=== PATIENT | female | born 1965 ===

== ENCOUNTER 2020-04-10 08:17 | Outpatient (REF) | payer OTHER, SELFPAY ==
[2020-04-10 10:06] LABS: Glucose Urine UA >=1000 MG/DL (NEG); Leukocyte Esterase Urine NEG (NEG); Nitrite Urine NEG (NEG); Urine Blood NEG (NEG); Urine Ketones NEG (NEG); Urine Protein NEG (NEG-TRACE)
[2020-04-10 10:09] LABS: Alanine Aminotransferase 31 U/L (0-31); Albumin Level 4.2 g/dL (3.5-5.0); Alkaline Phosphatase 54 U/L (39-117); Anion Gap 12 (12-20); Aspartate Amino Transferase 25 U/L (5-31); Bilirubin Total 0.5 mg/dL (0.0-1.0); Blood Urea Nitrogen 19 mg/dL (9-16); Calcium 9.2 mg/dL (8.4-10.2); Carbon Dioxide 29 mmol/L (22-29); Chloride 104 mmol/L (96-108); Cholesterol 129 mg/dL; Estimated Glomerular Filt Rate > 60; Glucose Fasting 139 mg/dL (60-99); HDL Cholesterol 41 mg/dL; LDL Cholesterol Calculated 72 mg/dl; Potassium 3.9 mmol/l (3.3-5.1); Sodium 141 mmol/L (135-145); Total Protein 7.1 g/dL (6.5-8.0); Triglycerides 80 mg/dL
[2020-04-10 10:12] LABS: Appearance Urine CLEAR; Color Urine YELLOW
[2020-04-10 10:55] LABS: Creatinine Urine 77.56 mg/dL; Microalbumin Urine < 5.0 mg/L
[2020-04-10 11:14] LABS: RBC Urine 0 /HPF (0); Squamous Epithelial Cell Urine TRACE /LPF; WBC Urine 0-2 /HPF (0-4)
== END 2020-04-10 08:18 | disposition home or self-care (01) ==
LOC: HO.LAB 08:17
PROVIDERS: PCP Internal Medicine; Visit Provider Internal Medicine
DX: E11.9 Type 2 diabetes mellitus without complications (principal)
CPT/HCPCS: 80053; 80061; 81001; 81003; 82043

== ENCOUNTER 2020-04-28 14:40 | Outpatient (REF) | payer OTHER, SELFPAY | END 2020-04-28 14:41 | disposition home or self-care (01) | LOC: HO.HAP 14:40 | PROVIDERS: PCP Internal Medicine; Referring Provider Internal Medicine; Visit Provider Internal Medicine | DX: Z13.89 Encounter for screening for other disorder (principal) | CPT/HCPCS: 92700 ==

== ENCOUNTER → 2020-05-06 09:33 | Outpatient (BNVA) | payer OTHER, SELFPAY | PROVIDERS: PCP Internal Medicine; Referring Provider Internal Medicine; Visit Provider Dietitian, Registered | DX: Z76.89 Persons encountering health services in other specified circumstances (principal) ==

== ENCOUNTER → 2020-06-17 12:04 | Outpatient (BNVA) | payer OTHER, SELFPAY | PROVIDERS: PCP Internal Medicine; Visit Provider Dietitian, Registered | DX: Z76.89 Persons encountering health services in other specified circumstances (principal) ==

== ENCOUNTER 2020-06-29 08:41 | Outpatient (REF) | payer OTHER, SELFPAY ==
[2020-06-29 10:01] LABS: MANUAL DIFF FLAG NO
[2020-06-29 10:02] LABS: Basophils Percent Auto 0.5 % (0-2); Eosinophils Absolute Auto 0.1 X10*3/uL (0.0-0.4); Eosinophils Percent Auto 1.3 % (0-4); Hematocrit 44.7 % (37-47); Imm Gran Abs Auto 0.03 X10*3/uL (0.00-0.03); Imm Gran Pct Auto 0.3 % (0.0-0.4); Lymphocytes Percent Auto 34.9 % (20-40); Mean Corpuscular HGB Conc 31.3 g/dl (31.0-35.0); Mean Corpuscular Hemoglobin 27.4 pg (27.0-33.0); Mean Corpuscular Volume 87.5 fL (80-98); Mean Platelet Volume 12.7 fL (9.4-12.3); Monocytes Absolute Auto 0.6 X10*3/uL (0.1-1.2); Monocytes Percent Auto 6.3 % (2-11); Neutrophils Percent Auto 56.7 % (45-73); Platelet Count 152 X10*3/uL (160-400); Red Blood Count 5.11 X10*6/uL (4.20-5.50); Red Cell Distribution Width 13.4 % (11.0-16.0); White Blood Count 8.7 X10*3/uL (4.8-10.8)
[2020-06-29 10:30] LABS: Alanine Aminotransferase 25 U/L (0-31); Albumin Level 3.9 g/dL (3.5-5.0); Alkaline Phosphatase 46 U/L (39-117); Anion Gap 12 (12-20); Aspartate Amino Transferase 26 U/L (5-31); Bilirubin Total 0.4 mg/dL (0.0-1.0); Blood Urea Nitrogen 24 mg/dL (9-16); Calcium 8.9 mg/dL (8.4-10.2); Carbon Dioxide 30 mmol/L (22-29); Chloride 104 mmol/L (96-108); Cholesterol 131 mg/dL; Estimated Glomerular Filt Rate > 60; Glucose Fasting 77 mg/dL (60-99); HDL Cholesterol 44 mg/dL; Iron 61 mcg/dL (30-160); LDL Cholesterol Calculated 67 mg/dl; Percent Iron Saturation 17 % (15-50); Potassium 3.7 mmol/l (3.3-5.1); Sodium 142 mmol/L (135-145); Total Iron Binding Capacity 355 mcg/dL (228-428); Total Protein 6.8 g/dL (6.5-8.0); Triglycerides 101 mg/dL; Unsaturated Iron Binding 294 ug/dL
[2020-06-29 10:58] LABS: Vitamin B12 605 pg/mL (200-900)
[2020-07-02 19:02] LABS: Intrinsic Factor Antibodies Positive (Negative)
[2020-07-04 11:52] LABS: Vitamin D 25-OH, D2 <4 ng/mL; Vitamin D 25-OH, D3 33 ng/mL; Vitamin D 25-OH, Total 33 ng/mL (30-100)
[2020-07-04 23:48] LABS: Parietal Cell Antibody 58.9 Unit (<=20.0)
== END 2020-06-29 08:42 | disposition home or self-care (01) ==
LOC: HO.LAB 08:41
PROVIDERS: Absent Provider Nurse Practitioner Family; PCP Internal Medicine; Visit Provider Internal Medicine
DX: E78.5 Hyperlipidemia, unspecified (principal); E53.8 Deficiency of other specified B group vitamins; I10 Essential (primary) hypertension; E55.9 Vitamin D deficiency, unspecified; M25.50 Pain in unspecified joint
CPT/HCPCS: 36415; 80053; 80061; 82306; 82607; 82746; 83516; 83540; 85025; 86340

== ENCOUNTER 2020-07-13 08:53 | Outpatient (REF) | payer OTHER, SELFPAY ==
[2020-07-13 10:31] LABS: Alanine Aminotransferase 24 U/L (0-31); Albumin Level 4.2 g/dL (3.5-5.0); Alkaline Phosphatase 52 U/L (39-117); Anion Gap 13 (12-20); Aspartate Amino Transferase 20 U/L (5-31); Bilirubin Total 0.4 mg/dL (0.0-1.0); Blood Urea Nitrogen 23 mg/dL (9-16); Calcium 9.8 mg/dL (8.4-10.2); Carbon Dioxide 28 mmol/L (22-29); Chloride 102 mmol/L (96-108); Cholesterol 146 mg/dL; Estimated Glomerular Filt Rate > 60; Glucose Fasting 195 mg/dL (60-99); HDL Cholesterol 43 mg/dL; LDL Cholesterol Calculated 78 mg/dl; Potassium 4.3 mmol/l (3.3-5.1); Sodium 139 mmol/L (135-145); Total Protein 7.3 g/dL (6.5-8.0); Triglycerides 125 mg/dL
[2020-07-13 11:06] LABS: Vitamin B12 480 pg/mL (200-900)
[2020-07-16 20:27] LABS: Intrinsic Factor Antibodies Positive (Negative)
[2020-07-19 09:53] LABS: Parietal Cell Antibody 54.1 Unit (<=20.0)
== END 2020-07-13 08:54 | disposition home or self-care (01) ==
LOC: HO.LAB 08:53
PROVIDERS: Absent Provider Nurse Practitioner Family; PCP Internal Medicine; Visit Provider Internal Medicine
DX: E11.40 Type 2 diabetes mellitus with diabetic neuropathy, unspecified (principal); Z96.41 Presence of insulin pump (external) (internal); E78.00 Pure hypercholesterolemia, unspecified; I10 Essential (primary) hypertension; D51.0 Vitamin B12 deficiency anemia due to intrinsic factor deficiency; E66.9 Obesity, unspecified; E78.5 Hyperlipidemia, unspecified
CPT/HCPCS: 36415; 80053; 80061; 82607; 82746; 83516; 86340

== ENCOUNTER 2020-07-13 09:42 | Outpatient (REF) | payer OTHER, SELFPAY | END 2020-07-13 09:43 | disposition home or self-care (01) | LOC: HO.LAB 09:42 | PROVIDERS: PCP Internal Medicine; Visit Provider Internal Medicine | DX: Z20.822 Contact with and (suspected) exposure to COVID-19 (principal) | CPT/HCPCS: 36415; C9803; U0003 ==

== ENCOUNTER 2020-07-28 11:03 | Outpatient (REF) | payer OTHER, SELFPAY | END 2020-07-28 11:04 | disposition home or self-care (01) | LOC: HO.LAB 11:03 | PROVIDERS: PCP Internal Medicine; Visit Provider Internal Medicine | DX: Z20.822 Contact with and (suspected) exposure to COVID-19 (principal) | CPT/HCPCS: 36415; C9803; U0003 ==

== ENCOUNTER 2020-08-07 13:14 | Outpatient (REF) | payer OTHER, SELFPAY | END 2020-08-07 13:15 | disposition home or self-care (01) | LOC: HO.LAB 13:14 | PROVIDERS: Visit Provider Internal Medicine | DX: Z20.822 Contact with and (suspected) exposure to COVID-19 (principal) | CPT/HCPCS: 36415; C9803; U0003; U0005 ==

== ENCOUNTER 2020-08-12 17:08 | Outpatient (REF) | payer OTHER, SELFPAY | END 2020-08-12 17:09 | disposition home or self-care (01) | LOC: HO.LAB 17:08 | PROVIDERS: Visit Provider Internal Medicine | DX: Z20.822 Contact with and (suspected) exposure to COVID-19 (principal) | CPT/HCPCS: 36415; C9803; U0003; U0005 ==

== ENCOUNTER 2020-08-24 09:14 | Outpatient (REF) | payer OTHER, SELFPAY ==
[2020-08-24 09:42] LABS: MANUAL DIFF FLAG NO
[2020-08-24 09:45] LABS: Basophils Absolute Auto 0.1 X10*3/uL (0.0-0.2); Basophils Percent Auto 0.7 % (0-2); Eosinophils Absolute Auto 0.1 X10*3/uL (0.0-0.4); Eosinophils Percent Auto 1.9 % (0-4); Hematocrit 44.7 % (37-47); Hemoglobin 14.2 g/dl (12.0-16.0); Imm Gran Abs Auto 0.02 X10*3/uL (0.00-0.03); Imm Gran Pct Auto 0.3 % (0.0-0.4); Lymphocytes Absolute Auto 2.1 X10*3/uL (1.2-4.9); Lymphocytes Percent Auto 30.5 % (20-40); Mean Corpuscular HGB Conc 31.8 g/dl (31.0-35.0); Mean Corpuscular Hemoglobin 28.1 pg (27.0-33.0); Mean Corpuscular Volume 88.5 fL (80-98); Mean Platelet Volume 11.6 fL (9.4-12.3); Monocytes Absolute Auto 0.5 X10*3/uL (0.1-1.2); Monocytes Percent Auto 6.7 % (2-11); Neutrophils Absolute Auto 4.1 X10*3/uL (2.0-8.3); Neutrophils Percent Auto 59.9 % (45-73); Platelet Count 158 X10*3/uL (160-400); Red Blood Count 5.05 X10*6/uL (4.20-5.50); Red Cell Distribution Width 13.4 % (11.0-16.0); White Blood Count 6.9 X10*3/uL (4.8-10.8)
[2020-08-24 10:08] LABS: Estimated Average Glucose 143 mg/dL; Hemoglobin A1c % 6.6 %
[2020-08-24 10:22] LABS: Anion Gap 13 (12-20); Blood Urea Nitrogen 17 mg/dL (9-16); Calcium 9.2 mg/dL (8.4-10.2); Carbon Dioxide 27 mmol/L (22-29); Chloride 106 mmol/L (96-108); Cholesterol 139 mg/dL; Estimated Glomerular Filt Rate > 60; Glucose Fasting 135 mg/dL (60-99); HDL Cholesterol 45 mg/dL; LDL Cholesterol Calculated 83 mg/dl; Potassium 4.8 mmol/L (3.3-5.1); Sodium 141 mmol/L (135-145); Triglycerides 56 mg/dL
[2020-08-24 11:39] LABS: Creatinine Urine 67.06 mg/dL; Microalbumin Urine < 5.0 mg/L
== END 2020-08-24 09:15 | disposition home or self-care (01) ==
LOC: HO.LAB 09:14
PROVIDERS: PCP Internal Medicine; Visit Provider Nurse Practitioner Family
DX: E11.40 Type 2 diabetes mellitus with diabetic neuropathy, unspecified (principal); E78.00 Pure hypercholesterolemia, unspecified; Z79.4 Long term (current) use of insulin
CPT/HCPCS: 36415; 80048; 80061; 82043; 83036; 85025

== ENCOUNTER 2020-08-24 09:49 | Outpatient (REF) | payer OTHER, SELFPAY | END 2020-08-24 09:50 | disposition home or self-care (01) | LOC: HO.LAB 09:49 | PROVIDERS: Visit Provider Internal Medicine | DX: Z20.822 Contact with and (suspected) exposure to COVID-19 (principal) | CPT/HCPCS: 36415; C9803; U0003; U0005 ==

== ENCOUNTER → 2020-09-16 12:10 | Outpatient (BNVA) | payer OTHER, SELFPAY | PROVIDERS: PCP Internal Medicine; Visit Provider Dietitian, Registered ==

== ENCOUNTER 2020-09-16 13:55 | Outpatient (REF) | payer OTHER, SELFPAY | END 2020-09-16 13:56 | disposition home or self-care (01) | LOC: HO.LAB 13:55 | PROVIDERS: Visit Provider Internal Medicine | DX: Z20.822 Contact with and (suspected) exposure to COVID-19 (principal) | CPT/HCPCS: 36415; C9803; U0003; U0005 ==

== ENCOUNTER → 2020-09-22 13:37 | Outpatient (BNVA) | payer OTHER, SELFPAY | PROVIDERS: PCP Internal Medicine; Visit Provider Internal Medicine Endocrinology, Diabetes & Metabolism | DX: E11.49 Type 2 diabetes mellitus with other diabetic neurological complication (principal); Z79.4 Long term (current) use of insulin; E78.00 Pure hypercholesterolemia, unspecified; I10 Essential (primary) hypertension; D51.0 Vitamin B12 deficiency anemia due to intrinsic factor deficiency; E66.9 Obesity, unspecified | CPT/HCPCS: 82947; 99212 ==

== ENCOUNTER 2020-09-24 10:37 | Outpatient (REF) | payer OTHER, SELFPAY ==
--- NOTE | ~2020-09-24 | US_ITS ---
EXAMINATION: US ABDOMEN LIMITED CLINICAL INFORMATION: Umbilical hernia without obstruction or gangrene. COMPARISON: Ultrasound abdomen complete 09/24/2019. KUB 08/13/2019. CT abdomen and pelvis dated 09/06/2018. TECHNIQUE: Real-time imaging of the umbilical area. FINDINGS: Imaging through the umbilical area reveals no visible soft tissue mass or hernia. There is abnormal peristaltic bowel seen that distorts abdominal wall in the area of pain/bulging. Patient was imaged in supine and retrosternal reversed Trendelenburg and upright views. US/US abdomen limited IMPRESSION: No soft tissue mass or hernia seen.
== END 2020-09-24 10:38 | disposition home or self-care (01) ==
LOC: HO.US 10:37
PROVIDERS: PCP Internal Medicine; Visit Provider Internal Medicine
DX: K42.9 Umbilical hernia without obstruction or gangrene (principal)
CPT/HCPCS: 76705

== ENCOUNTER 2020-09-24 13:00 | Outpatient (REF) | payer OTHER, SELFPAY ==
--- NOTE | ~2020-09-24 | MM_ITS ---
EXAMINATION: MM DIAGNOSTIC DIGITAL BREAST TOMOSYNTHESIS, BILATERAL CLINICAL INFORMATION: Probable benign calcifications left breast posterior to o'clock and mid 9:00. Due for yearly. The lifetime risk of breast cancer based on the Tyrer-Cuzick Model is 11%. COMPARISON: Mammography: 03/27/2020, 09/20/2019, 09/18/2019 (BI-RADS 0) 09/05/2018 TECHNIQUE: Digital breast tomosynthesis is performed in both the craniocaudal and mediolateral oblique views along with computer-aided detection (CAD). Synthesized 2D images are generated from the tomosynthesis. Additional views are obtained: Left exaggerated CC, magnification left CC x2, magnification left ML x2, left magnification exaggerated CC. FINDINGS: There are scattered areas of fibroglandular density (ACR BI-RADS breast composition Category b). Parenchymal pattern is similar to prior exams. There is no developing density or interval mass or architectural abnormality. There are scattered bilateral benign-appearing calcifications. The axilla and skin contours are unremarkable. The left calcifications for follow-up posterior medial and posterior upper outer quadrant are without significant change from prior diagnostic studies. These appear relatively coarse and similar to other calcifications in the breasts, likely fibroadenomatous change. They will be reassessed again at next bilateral annual mammography, due in 12 months. Results are provided to the patient at time of visit by the technologist. MM/MM tomosynthesis diagnostic BI IMPRESSION: 1. No significant changes from prior studies. 2. Probable benign calcifications posterior medial and upper outer left breast, possibly fibroadenomatous change. ASSESSMENT: BI-RADS 3: Probably Benign RECOMMENDATION: Diagnostic mammography at time of next annual exam, due in 12 months. This patient's information was entered into a reminder system with a target due date for their next mammogram.
== END 2020-09-24 13:01 | disposition home or self-care (01) ==
LOC: HO.MAMMO 13:00
PROVIDERS: PCP Internal Medicine; Visit Provider Internal Medicine
DX: R92.1 Mammographic calcification found on diagnostic imaging of breast (principal)
CPT/HCPCS: 77062; 77066

== ENCOUNTER 2020-10-02 08:49 | Outpatient (REF) | payer OTHER, SELFPAY ==
[2020-10-02 13:32] LABS: SARS COV2 PCR INHOUSE NEGATIVE (Negative)
== END 2020-10-02 08:50 | disposition home or self-care (01) ==
LOC: HO.LAB 08:49
PROVIDERS: Visit Provider Internal Medicine
DX: Z20.822 Contact with and (suspected) exposure to COVID-19 (principal)
CPT/HCPCS: C9803; U0003

== ENCOUNTER 2020-10-13 10:38 | Outpatient (REF) | payer OTHER, SELFPAY ==
[2020-10-13 12:15] LABS: COVID-19 Test Negative (Negative); IDNOW Serial# 55D5AD1C
== END 2020-10-13 10:39 | disposition home or self-care (01) ==
LOC: HO.LAB 10:38
PROVIDERS: Visit Provider Internal Medicine
DX: Z20.822 Contact with and (suspected) exposure to COVID-19 (principal)
CPT/HCPCS: 36415; 87635; C9803

== ENCOUNTER 2020-10-21 10:31 | Outpatient (REF) | payer OTHER, SELFPAY ==
[2020-10-21 10:57] LABS: COVID-19 Test Negative (Negative)
== END 2020-10-21 10:32 | disposition home or self-care (01) ==
LOC: HO.LAB 10:31
PROVIDERS: Visit Provider Internal Medicine
DX: Z20.822 Contact with and (suspected) exposure to COVID-19 (principal)
CPT/HCPCS: 36415; 87635; C9803

== ENCOUNTER → 2020-10-29 10:28 | Outpatient (REF) | payer OTHER, SELFPAY ==
--- NOTE | 2020-10-29 10:34 | CA_ITS ---
Transthoracic Echocardiogram Patient (Last, First, Middle): Mellisa Akbar, Gender: Female Date of : 1965 Age: 54 Procedure Date: 10/29/2020 Procedure Type: Transthoracic Echocardiogram Location: OP Height: 157.48 cm Weight: 73.48 kg BSA: 1.75 m2 Heart Rate: bpm BP: 110 / 70 mmHg Ice Cream Chef: LYNN Mcdowell MD: Norma Bland MD Director Of Recreation Therapy: Donavan Crawford MD Symptoms: R60.9 - Edema, unspecified Study Quality: Fair ECG Rhythm: Sinus Conclusions: - 1. Normal LV systolic function with impaired relaxation filling pattern 2. Normal cardiac valvular Doppler 3. Normal RV systolic pressure 4. No pericardial effusion Findings Left Ventricle Normal left ventricular size, thickness, and systolic function. The visually estimated ejection fraction is between 65-70%. There is no evidence of regional wall motion abnormalities. Spectral Doppler is indicative of an impaired relaxation filling pattern. E/E prime ratio is between 8 and 15 consistent with indeterminate filling pressures. Right Ventricle Normal right ventricular cavity size and systolic function. Atria Both atria are normal in size. Interatrial shunt cannot be excluded. Aortic Valve The aortic valve structure and function is likely normal. There is no aortic valve stenosis. There is no aortic valve regurgitation. Mitral Valve Normal mitral valve structure and function. There is trace mitral valve regurgitation. There is no mitral valve stenosis. Pulmonic Valve The pulmonic valve was not well visualized. Tricuspid Valve Likely normal tricuspid valve structure and function. There is trace tricuspid valve regurgitation. The right ventricular systolic pressure is normal. There is no evidence of pulmonary hypertension. Great Vessels All visible segments of the aorta are normal in size. The pulmonary artery was not well visualized. Venous The inferior vena cava is normal in size and collapses greater than 50% with inspiration. Pericardium/Pleural There is no evidence of pericardial effusion. Prior Study Comparison No previous study in the last 5 years for comparison Measurements M-Mode Liner Measurements Normals - Women/Men AOV Cusps: 1.90 1.5-2.6 cm/m2 2D Linear Measurements IVSd: 0.75 0.6-0.9/0.6-1.0 cm LVIDd: 4.39 3.9-5.3/4.2-5.9 cm LVIDd Index: 2.51 2.4-3.2/2.2-3.1 cm/m2 LVIDs: 2.71 2.0-3.6 cm LVPWd: 0.89 0.7-1.1 cm Ao Root: 2.50 2.1-3.5 cm LA Diam: 3.20 2.7-3.8/3.0-4.0 cm LAIDs Index: 1.83 1.5-2.3 cm/m2 LV Mass: 139.70 67-162/88-224 g LV Mass Index: 79.83 43-95/49-115 g/m2 LVOT Diam: 1.80 3.0+(-)1.3 cm 2D Systolic Function EF 4C: 70.30 >55% EF 2C: 62.00 >55% EF BiP: 66.40 >55% Mitral Valve MV Pk E: 0.84 MV PK A: 1.01 MV Decel Time: 271.00 E/A: 0.80 E'Lateral: 9.90 E'Medial: 6.31 E/E' Med: 13.30 E/E' Lat: 8.50 PHT: 79.00 MVA PHT: 2.[address] [place]: 3.10 Aortic Valve AoV Pk Varun: 1.19 AoV Mn Varun: 0.94 AoV VTI: 0.28 AoV Pk Grad: 6.00 Aov Mn Grad: 4.00 GODFREY Cont.VTI: 2.13 LVOT LVOT Pk Varun: 0.95 LVOT Mn Varun: 0.69 LVOT VTI: 0.24 LVOT Pk Grad: 4.00 LVOT Mn Grad: 2.00 LVOT Diam: 1.80 LVOT Area: 2.54 Diastolic Function MV Pk E: 0.84 MV Pk A: 1.01 E/A: 0.80 E'Medial: 6.31 E/E' Med: 13.30 E' Laterial: 9.90 E/E' Lat: 8.50 Tricuspid Valve TR Pk Varun: 2.40 TR Pk Grad: 23.00 RA Press: 3.00 RVSP: 26.00 Great Vessels Aorta Ao Root-2D: 2.50 2.0-3.7 cm Ao Asc: 2.30 2.1-3.4 cm Ao Arch: 2.40 Pulmonary Valve PV Pk Varun: 1.07 Peak PV Grad: 5.00 Updated in Other Vendor System with Status of Final Donavan Crawford MD electronically signed on 10/30/2020 11:51:57 AM with status of Final
[2020-10-29 13:48] LABS: Creatinine Urine 46.37 mg/dL; Microalbumin Urine < 5.0 mg/L
[2020-10-30 09:48] LABS: Glucose Urine UA >=1000 MG/DL (NEG); Leukocyte Esterase Urine NEG (NEG); Nitrite Urine NEG (NEG); PH 5.5 (5.0-8.0); Urine Blood NEG (NEG); Urine Ketones NEG (NEG); Urine Protein NEG (NEG-TRACE)
[2020-10-30 09:50] LABS: Appearance Urine CLEAR; Color Urine YELLOW
[2020-10-30 10:01] LABS: RBC Urine 0 /HPF (0); WBC Urine 0 /HPF (0-4)
== END ==
LOC: HO.CARD 10:28
PROVIDERS: PCP Internal Medicine; Visit Provider Internal Medicine
DX: R60.9 Edema, unspecified (principal); E11.49 Type 2 diabetes mellitus with other diabetic neurological complication
CPT/HCPCS: 81001; 82043; 87086; 87088; 87186; 93306; Q9957

== ENCOUNTER 2020-11-12 13:37 | Outpatient (REF) | payer OTHER, SELFPAY ==
[2020-11-12 15:01] LABS: MANUAL DIFF FLAG NO
[2020-11-12 15:06] LABS: Basophils Absolute Auto 0.1 X10*3/uL (0.0-0.2); Basophils Percent Auto 0.6 % (0-2); Eosinophils Absolute Auto 0.1 X10*3/uL (0.0-0.4); Eosinophils Percent Auto 1.4 % (0-4); Hematocrit 48.7 % (37-47); Hemoglobin 15.2 g/dl (12.0-16.0); Imm Gran Abs Auto 0.02 X10*3/uL (0.00-0.03); Imm Gran Pct Auto 0.2 % (0.0-0.4); Lymphocytes Absolute Auto 2.5 X10*3/uL (1.2-4.9); Lymphocytes Percent Auto 28.9 % (20-40); Mean Corpuscular HGB Conc 31.2 g/dl (31.0-35.0); Mean Corpuscular Hemoglobin 27.2 pg (27.0-33.0); Mean Corpuscular Volume 87.1 fL (80-98); Mean Platelet Volume 12.2 fL (9.4-12.3); Monocytes Absolute Auto 0.5 X10*3/uL (0.1-1.2); Monocytes Percent Auto 5.6 % (2-11); Neutrophils Absolute Auto 5.4 X10*3/uL (2.0-8.3); Neutrophils Percent Auto 63.3 % (45-73); Platelet Count 185 X10*3/uL (160-400); Red Blood Count 5.59 X10*6/uL (4.20-5.50); Red Cell Distribution Width 12.7 % (11.0-16.0); White Blood Count 8.6 X10*3/uL (4.8-10.8)
[2020-11-12 15:26] LABS: Alanine Aminotransferase 31 U/L (0-31); Albumin Level 4.4 g/dL (3.5-5.0); Alkaline Phosphatase 72 U/L (39-117); Anion Gap 13 (12-20); Aspartate Amino Transferase 23 U/L (5-31); Bilirubin Total 0.3 mg/dL (0.0-1.0); Blood Urea Nitrogen 19 mg/dL (9-16); Calcium 10.3 mg/dL (8.4-10.2); Carbon Dioxide 30 mmol/L (22-29); Chloride 101 mmol/L (96-108); Estimated Glomerular Filt Rate > 60; Glucose Random 144 mg/dL (60-115); Potassium 3.8 mmol/L (3.3-5.1); Rheumatoid Factor < 15.0 IU/mL (<15.0); Sodium 140 mmol/L (135-145); Total Protein 7.7 g/dL (6.5-8.0)
[2020-11-12 15:51] LABS: Thyroid Stimulating Hormone 2.32 uIU/mL (0.32-4.0)
[2020-11-12 16:36] LABS: Erythrocyte Sedimentation Rate 7 MM/HR (0-20)
[2020-11-13 05:26] LABS: Lyme Abs Screen <0.90 index
[2020-11-13 10:16] LABS: Antibody to SS-A Antigen <1.0 NEG AI (<1.0 NEG); Antibody to SS-B Antigen <1.0 NEG AI (<1.0 NEG)
[2020-11-13 13:56] LABS: Anti Nuclear Antibody Screen NEGATIVE (NEGATIVE)
[2020-11-13 20:02] LABS: Cyclic Citrullinated Peptide <16 UNITS
[2020-11-16 14:46] LABS: Vitamin D 25-OH, D2 <4 ng/mL; Vitamin D 25-OH, D3 39 ng/mL; Vitamin D 25-OH, Total 39 ng/mL (30-100)
== END 2020-11-12 13:38 | disposition home or self-care (01) ==
LOC: HO.LAB 13:37
PROVIDERS: PCP Internal Medicine; Visit Provider Student in an Organized Health Care Education/Training Program
DX: M25.50 Pain in unspecified joint (principal)
CPT/HCPCS: 36415; 80053; 82306; 84443; 85025; 85652; 86038; 86039; 86140; 86200; 86235; 86431; 86617; 86618; 99202

== ENCOUNTER 2020-11-13 07:31 | Outpatient (REF) | payer OTHER, SELFPAY ==
--- NOTE | ~2020-11-13 | XR_ITS ---
EXAMINATION: XR BILATERAL HAND X-RAY CLINICAL INFORMATION: Pain. COMPARISON: Previous x-ray October 2017. TECHNIQUE: 3 views of each hand and wrist. FINDINGS: Bone alignment is normal. No fracture or dislocation is seen. Joint spaces are normal. Soft tissues are normal. XR/XR hand RT min 3V IMPRESSION: Unremarkable exam.
--- NOTE | ~2020-11-13 | XR_ITS ---
EXAMINATION: XR LUMBOSACRAL SPINE CLINICAL INFORMATION: Pain COMPARISON: Previous x-ray August 2017 TECHNIQUE: Three views of the lumbosacral spine. FINDINGS: There may be a transitional vertebral body segment or 6 lumbar-type vertebral bodies. For the purposes of this dictation the transitional segment is designated superiorly with the L4-L5 disc space at the top of the iliac crests. Bone alignment is normal. No fracture or dislocation is seen. There is mild spondylosis and degenerative disc disease at T12-L1 and L1-L2. There is mild degenerative spondylosis at L3-L4. There is lower lumbar spine facet arthritis. Paraspinal soft tissues are unremarkable. XR/XR lumbar spine 2-3V IMPRESSION: Mild degenerative changes similar to 2018 exam.
--- NOTE | ~2020-11-13 | XR_ITS ---
EXAMINATION: XR BILATERAL HAND X-RAY CLINICAL INFORMATION: Pain. COMPARISON: Previous x-ray October 2017. TECHNIQUE: 3 views of each hand and wrist. FINDINGS: Bone alignment is normal. No fracture or dislocation is seen. Joint spaces are normal. Soft tissues are normal. XR/XR hand LT min 3V IMPRESSION: Unremarkable exam.
[2020-11-13 08:22] LABS: MANUAL DIFF FLAG NO
[2020-11-13 08:27] LABS: Basophils Absolute Auto 0.1 X10*3/uL (0.0-0.2); Basophils Percent Auto 0.8 % (0-2); Eosinophils Absolute Auto 0.1 X10*3/uL (0.0-0.4); Eosinophils Percent Auto 1.5 % (0-4); Hematocrit 45.6 % (37-47); Hemoglobin 14.3 g/dl (12.0-16.0); Imm Gran Abs Auto 0.01 X10*3/uL (0.00-0.03); Imm Gran Pct Auto 0.1 % (0.0-0.4); Lymphocytes Percent Auto 27.4 % (20-40); Mean Corpuscular HGB Conc 31.4 g/dl (31.0-35.0); Mean Corpuscular Hemoglobin 27.2 pg (27.0-33.0); Mean Corpuscular Volume 86.9 fL (80-98); Mean Platelet Volume 12.1 fL (9.4-12.3); Monocytes Absolute Auto 0.5 X10*3/uL (0.1-1.2); Monocytes Percent Auto 6.6 % (2-11); Neutrophils Absolute Auto 4.5 X10*3/uL (2.0-8.3); Neutrophils Percent Auto 63.6 % (45-73); Platelet Count 175 X10*3/uL (160-400); Red Blood Count 5.25 X10*6/uL (4.20-5.50); Red Cell Distribution Width 12.6 % (11.0-16.0); White Blood Count 7.2 X10*3/uL (4.8-10.8)
[2020-11-13 08:50] LABS: B Type Natriuretic Peptide 23 pg/mL (<100)
[2020-11-13 08:55] LABS: Alanine Aminotransferase 28 U/L (0-31); Albumin Level 4.1 g/dL (3.5-5.0); Alkaline Phosphatase 57 U/L (39-117); Anion Gap 12 (12-20); Aspartate Amino Transferase 23 U/L (5-31); Bilirubin Total 0.4 mg/dL (0.0-1.0); Blood Urea Nitrogen 20 mg/dL (9-16); Calcium 9.5 mg/dL (8.4-10.2); Carbon Dioxide 29 mmol/L (22-29); Chloride 103 mmol/L (96-108); Cholesterol 122 mg/dL; Estimated Glomerular Filt Rate > 60; Glucose Fasting 164 mg/dL (60-99); HDL Cholesterol 32 mg/dL; LDL Cholesterol Calculated 65 mg/dl; Potassium 3.8 mmol/L (3.3-5.1); Sodium 140 mmol/L (135-145); Triglycerides 126 mg/dL
[2020-11-13 09:07] LABS: TSH reflex Free T4 1.85 uIU/mL (0.32-4.0)
[2020-11-13 09:21] LABS: Folate 14.5 ng/mL (> or = 4.0); Vitamin B12 810 pg/mL (200-900)
[2020-11-17 12:46] LABS: Vitamin D 25-OH, D2 <4 ng/mL; Vitamin D 25-OH, D3 31 ng/mL; Vitamin D 25-OH, Total 31 ng/mL (30-100)
== END 2020-11-13 07:32 | disposition home or self-care (01) ==
LOC: HO.LAB 07:31
PROVIDERS: Absent Provider Student in an Organized Health Care Education/Training Program; PCP Internal Medicine; Visit Provider Internal Medicine
DX: M25.50 Pain in unspecified joint (principal); D51.0 Vitamin B12 deficiency anemia due to intrinsic factor deficiency; D64.9 Anemia, unspecified; R60.9 Edema, unspecified; E11.49 Type 2 diabetes mellitus with other diabetic neurological complication; E78.5 Hyperlipidemia, unspecified; E55.9 Vitamin D deficiency, unspecified
CPT/HCPCS: 36415; 72100; 73130; 80053; 80061; 82306; 82607; 82746; 83880; 84443; 85025

== ENCOUNTER 2020-11-25 11:12 | Outpatient (REF) | payer OTHER, SELFPAY ==
[2020-11-25 14:13] LABS: CT PCR NOT DETECTED (Not Detect.); NG PCR NOT DETECTED (Not Detect.)
[2020-11-26 08:56] LABS: BV Int Neg Control Negative (Negative); BV Int Pos Control Positive (Positive)
== END 2020-11-25 11:13 | disposition home or self-care (01) ==
LOC: HO.LAB 11:12
PROVIDERS: PCP Internal Medicine; Visit Provider Obstetrics & Gynecology
DX: Z11.3 Encounter for screening for infections with a predominantly sexual mode of transmission (principal); B37.3 Candidiasis of vulva and vagina; N95.2 Postmenopausal atrophic vaginitis
CPT/HCPCS: 87480; 87491; 87510; 87591; 87660; 99212

== ENCOUNTER 2021-01-22 08:17 | Outpatient (REF) | payer OTHER, SELFPAY ==
[2021-01-22 09:11] LABS: MANUAL DIFF FLAG NO
[2021-01-22 09:19] LABS: Basophils Percent Auto 0.5 % (0-2); Eosinophils Absolute Auto 0.1 X10*3/uL (0.0-0.4); Eosinophils Percent Auto 1.7 % (0-4); Hematocrit 44.9 % (37-47); Hemoglobin 14.2 g/dl (12.0-16.0); Imm Gran Abs Auto 0.01 X10*3/uL (0.00-0.03); Imm Gran Pct Auto 0.2 % (0.0-0.4); Lymphocytes Absolute Auto 1.9 X10*3/uL (1.2-4.9); Lymphocytes Percent Auto 31.7 % (20-40); Mean Corpuscular HGB Conc 31.6 g/dl (31.0-35.0); Mean Corpuscular Hemoglobin 27.8 pg (27.0-33.0); Mean Platelet Volume 12.3 fL (9.4-12.3); Monocytes Absolute Auto 0.4 X10*3/uL (0.1-1.2); Monocytes Percent Auto 7.1 % (2-11); Neutrophils Absolute Auto 3.6 X10*3/uL (2.0-8.3); Neutrophils Percent Auto 58.8 % (45-73); Platelet Count 166 X10*3/uL (160-400); White Blood Count 6.1 X10*3/uL (4.8-10.8)
[2021-01-22 09:39] LABS: Alanine Aminotransferase 24 U/L (0-31); Albumin Level 3.8 g/dL (3.5-5.0); Alkaline Phosphatase 60 U/L (39-117); Anion Gap 10 (12-20); Aspartate Amino Transferase 24 U/L (5-31); B Type Natriuretic Peptide 63 pg/mL (<100); Bilirubin Total 0.3 mg/dL (0.0-1.0); Blood Urea Nitrogen 21 mg/dL (9-16); Calcium 9.3 mg/dL (8.4-10.2); Carbon Dioxide 29 mmol/L (22-29); Chloride 106 mmol/L (96-108); Cholesterol 147 mg/dL; Estimated Glomerular Filt Rate > 60; Glucose Fasting 194 mg/dL (60-99); HDL Cholesterol 32 mg/dL; LDL Cholesterol Calculated 89 mg/dl; Sodium 141 mmol/L (135-145); Total Protein 6.7 g/dL (6.5-8.0); Triglycerides 134 mg/dL
[2021-01-22 09:56] LABS: Erythrocyte Sedimentation Rate 8 MM/HR (0-20)
[2021-01-22 10:15] LABS: Folate 13.8 ng/mL (> or = 4.0); Vitamin B12 1009 pg/mL (200-900)
[2021-01-22 11:42] LABS: Creatinine Urine 100.11 mg/dL; Microalbum/Creatinine Ratio Ur 5.9 ug/mg cr
[2021-01-28 12:41] LABS: Vitamin D 25-OH, D2 <4 ng/mL; Vitamin D 25-OH, D3 35 ng/mL; Vitamin D 25-OH, Total 35 ng/mL (30-100)
== END 2021-01-22 08:18 | disposition home or self-care (01) ==
LOC: HO.LAB 08:17
PROVIDERS: PCP Internal Medicine; Visit Provider Internal Medicine
DX: E11.49 Type 2 diabetes mellitus with other diabetic neurological complication (principal); D64.9 Anemia, unspecified; D51.0 Vitamin B12 deficiency anemia due to intrinsic factor deficiency; E78.5 Hyperlipidemia, unspecified; R60.9 Edema, unspecified; I10 Essential (primary) hypertension; E55.9 Vitamin D deficiency, unspecified; R30.0 Dysuria
CPT/HCPCS: 36415; 80053; 80061; 82043; 82306; 82607; 82746; 83880; 85025; 85652

== ENCOUNTER → 2021-02-19 10:07 | Outpatient (BNVA) | payer OTHER, SELFPAY | PROVIDERS: PCP Internal Medicine; Visit Provider Nurse Practitioner Family | DX: K21.9 Gastro-esophageal reflux disease without esophagitis (principal); K59.01 Slow transit constipation; Z79.899 Other long term (current) drug therapy | CPT/HCPCS: 99202 ==

== ENCOUNTER → 2021-03-26 10:27 | Outpatient (BNVA) | payer OTHER, SELFPAY | PROVIDERS: PCP Internal Medicine; Referring Provider Internal Medicine; Visit Provider Nurse Practitioner Family | DX: Z01.818 Encounter for other preprocedural examination (principal); K21.9 Gastro-esophageal reflux disease without esophagitis; K59.01 Slow transit constipation | CPT/HCPCS: 99212 ==

== ENCOUNTER 2021-04-01 08:40 | Outpatient (REF) | payer OTHER, SELFPAY ==
--- NOTE | ~2021-04-01 | FL_ITS ---
EXAMINATION: FL BARIUM SWALLOW CLINICAL INFORMATION: Dysphagia COMPARISON: None TECHNIQUE: Barium swallow examination is performed using fluoroscopic evaluation in addition to multiple fluoroscopic spot views. The patient is imaged both upright and prone and using both thick and thin sulfate along with effervescent granules. Barium tablet was also administered. Fluoroscopy time: 0.7 minutes DAP: 7 Gycm2 Images: 59 FINDINGS: The swallowing mechanism is normal. No aspiration or penetration seen. Esophageal motility is normal. No hernia is seen. There is severe gastroesophageal reflux. Barium tablet passed freely into the stomach. FL/FL barium swallow IMPRESSION: Severe gastroesophageal reflux otherwise unremarkable exam.
== END 2021-04-01 08:41 | disposition home or self-care (01) ==
LOC: HO.XRAY 08:40
PROVIDERS: PCP Internal Medicine; Visit Provider Nurse Practitioner Family
DX: R13.10 Dysphagia, unspecified (principal)
CPT/HCPCS: 74220

== ENCOUNTER 2021-04-26 11:05 | Day surgery (SDC) | payer OTHER, SELFPAY ==
--- NOTE | 2021-04-23 09:34 | HO.ANESPROP2 ---
Documented by User: Paula French NP 04/23/21 09:36 HPI - Anesthesia Eval Consult details Narrative: 55yo F for Upper Endoscopy and Colonoscopy [facility] Active Problems Active Problems: All Active Problems (Updated 04/14/21 @ 15:45 by Mike Steele) Left serous otitis media (Acute) Right otitis media (Acute) Otalgia, right ear (Acute) Moderate recurrent major depression (Acute) Difficulty swallowing (Acute) Bruised toe (Acute) Atrophic vaginitis (Acute) Candidal vulvovaginitis (Acute) Fecal incontinence (Acute) Dyslipidemia (Acute) Breast calcification, left (Acute) Umbilical hernia (Acute) Edema (Acute) Arthritis (Acute) Ear pain (Acute) 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) Obesity (BMI 30-39.9) (Acute) Pernicious anemia (Acute) Asthma (Acute) Otitis media (Acute) Hearing loss (Acute) Insomnia (Acute) Moderate asthma (Acute) Essential hypertension (Acute) Polyarthralgia (Acute) GERD (gastroesophageal reflux disease) (Acute) Type 2 diabetes mellitus with other diabetic neurological complication (Acute) Diabetes (Acute) Otitis externa (Acute) Hearing loss (Acute) Past Medical History Medical History Arthritis Depression with anxiety Diabetes Dyslipidemia Ear pain Edema Essential hypertension Fecal incontinence GERD (gastroesophageal reflux disease) Hearing loss Hearing loss Insomnia 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 Moderate asthma Moderate recurrent major depression Obesity (BMI 30-39.9) Pernicious anemia Polyarthralgia Umbilical hernia Family History Family History Mother Breast cancer Paternal Grandmother Breast cancer Brother Colon cancer Family/Other FH: mental illness Mental health disorder Surgical History Surgical History History of carpal tunnel release History of cholecystectomy History of endometrial ablation History of foot surgery History of surgery on arm History of tubal ligation History of umbilical hernia repair Social History Social History Housing: Apartment Alcohol intake: never Patient Tobacco Use Status: Never used Tobacco e-Cigarette/Vaping Use: Never Used Second Hand Smoke Exposure: No Use of substances other than those prescribed or required for medical reasons: No Are you DNR?: No Advance Directives: No Advance Directives Information Provided: Yes service: No Current occupational status: disabled Meds Allergies Allergy/AdvReac Type Severity Reaction Status Date / Time Penicillins Allergy Mild RASH/DYSPNE Verified 04/14/21 15:25 A metformin AdvReac Intermediate stomach Verified 04/14/21 15:25 upset Home Medications Medication Instructions Recorded Confirmed Last Taken Type lorazepam 0.5 mg tablet 0.5 mg PO DAILY PRN 04/16/20 03/22/21 Unknown History zolpidem 5 mg tablet 5 mg PO BEDTIME PRN 04/16/20 03/22/21 Unknown History sertraline 100 mg tablet 100 mg PO DAILY 06/17/20 03/22/21 Unknown History lancets 28 gauge #100 ea 07/13/20 03/22/21 Unknown History cyanocobalamin (vitamin B-12) 500 500 mcg SUBLINGUAL DAILY 02/19/21 03/22/21 Unknown History mcg disintegrating tablet,sublingual pioglitazone 45 mg tablet 45 mg PO DAILY 02/19/21 03/22/21 Unknown History Exam Exam Date and Time: April 23, 2021 0934 Pertinent Lab Results Pertinent Lab Results: Laboratory Tests 01/22/21 01/22/21 08:30 08:30 WBC 6.1 Hgb 14.2 Hct 44.9 Plt Count 166 Sodium 141 Potassium 4.0 Chloride 106 Carbon Dioxide 29 BUN 21 H Creatinine 0.75 Narrative Narrative: ECHO 10/2020 Conclusions: -? 1. Normal LV systolic function with impaired relaxation ? ? ? filling pattern? 2. Normal cardiac valvular Doppler ? 3. Normal RV systolic pressure ? 4. No pericardial effusion ?? 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 Moderate asthma Moderate recurrent major depression Obesity (BMI 30-39.9) Pernicious anemia Polyarthralgia Umbilical hernia Family History Family History Mother Breast cancer Paternal Grandmother Breast cancer Brother Colon cancer Family/Other FH: mental illness Mental health disorder Family history of problems with anesthesia: No Surgical History Surgical History History of carpal tunnel release History of cholecystectomy History of endometrial ablation History of foot surgery History of surgery on arm History of tubal ligation History of umbilical hernia repair History of Problems with Anesthesia: No Social History Social History Housing: Apartment Alcohol intake: never Patient Tobacco Use Status: Never used Tobacco e-Cigarette/Vaping Use: Never Used Second Hand Smoke Exposure: No Use of substances other than those prescribed or required for medical reasons: No Are you DNR?: No Advance Directives: No Advance Directives Information Provided: Yes service: No Current occupational status: disabled Meds Allergies Allergy/AdvReac Type Severity Reaction Status Date / Time Penicillins Allergy Mild RASH/DYSPNE Verified 04/14/21 15:25 A metformin AdvReac Intermediate stomach Verified 04/14/21 15:25 upset Home Medications Medication Instructions Recorded Confirmed Last Taken Type lorazepam 0.5 mg tablet 0.5 mg PO DAILY PRN 04/16/20 03/22/21 Unknown History zolpidem 5 mg tablet 5 mg PO BEDTIME PRN 04/16/20 03/22/21 Unknown History sertraline 100 mg tablet 100 mg PO DAILY 06/17/20 03/22/21 Unknown History lancets 28 gauge #100 ea 07/13/20 03/22/21 Unknown History cyanocobalamin (vitamin B-12) 500 500 mcg SUBLINGUAL DAILY 02/19/21 03/22/21 Unknown History mcg disintegrating tablet,sublingual pioglitazone 45 mg tablet 45 mg PO DAILY 02/19/21 03/22/21 Unknown History Exam Airway Mallampati Class: II TM Dist: >3cm Neck ROM: Full Partial: Upper Heart: rrr Lungs: cta Assessment and Plan Assessment Anesthesia Assessment: Anesthesia Plan Discussed and Chart Reviewed Final Anesthetic Review Family History of Problems with Anesthesia: No History of Problems with Anesthesia: No NPO: Yes ASA Class: III Final Preanesthetic Review: No Changes in Pt Med Stat, Meds/Allgs Chart Reviewed and Consent Obtained/Reviewed Patient Risk: Intermediate Procedure Risk: Intermediate Anesthetic Plan Anesthetic Plan: MAC: Disposition: Standard PACU
[2021-04-26 12:02] VITALS: BP 126/69; PULSE 78; RESP 16; TEMP 35.9; O2SAT 98; BMI 28.5
[2021-04-26] MEDS: Lactated Ringers 1,000 ML 100 ML IVCONT (12:09)
--- NOTE | 2021-04-26 12:28 | P.HPSUR_ITS ---
Pre-Procedural Eval Section A Date of Service: 04/26/21 The patient is an INPATIENT: No The History & Physical has been completed within 30 days and I have reviewed it.: No Section B Chief Complaint: screening,reflux disease Details of Present Illness: Colon cancer, chronic constipation, GERD Relevant Family History (Specify if Yes): Yes Relevant Social History: None Present Medications: see Short Stay Collaborative assessment Medical History: Significant History (Arthritis Depression with anxiety Diabetes Dyslipidemia Ear pain Edema Essential hypertension Fecal incontinence GERD (gastroesophageal reflux disease) Hearing loss Hearing loss 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 Moderate asthma Moderate recurrent major depression Obesity (BMI 30-39.9) Pern) History of Previous Operations: Relevant previous surgery/procedure and date(s) (History of carpal tunnel release History of cholecystectomy History of endometrial ablation History of foot surgery History of surgery on arm History of tubal ligation History of umbilical hernia repair) Allergies: Allergies Allergy/AdvReac Type Severity Reaction Status Date / Time Penicillins Allergy Mild RASH/DYSPNE Verified 04/14/21 15:25 A metformin AdvReac Intermediate stomach Verified 04/14/21 15:25 upset Review of Systems Sugical H&P ROS: Negative: Constitution, Cardiovascular, Respiratory and Gastrointestinal Exam Surgical H&P Exam: Normal: Heart, Normal: Lungs, Normal: Extremities and Normal: Abdomen Plan Diagnosis/Plan: Unchanged I have reviewed the history and physical and performed a pertinent physical examination on my patient. No changes have occurred unless specified.
--- NOTE | 2021-04-26 12:29 | PM.OP ---
Brief Operative Note Date of Service: 04/26/21 Pre-op diagnosis: Colon cancer screening, constipation, GERD Post-op diagnosis: other (GERD, Gastritis, ulcerated gastric folds, colon polyps, diverticulosis) Procedure: FLEXIBLE TRANSORAL UPPER GASTROINTESTINAL ENDOSCOPY WITH BIOPSIES AND COLONOSCOPY TILL CECUM WITH BIOPSIES AND SNARE POLYPECTOMY UPPER ENDOSCOPY Consent: Indications for the procedure and potential complications of bleeding, perforation, reaction to medications and missed diagnosis were discussed with the patient with the help of a conference interpreter and informed consent was obtained. Instrument: Olympus GIF H 190 mid size upper endoscope Monitoring: Vital signs and clinical assessment, continuous EKG monitoring, Pulse oximetry, Carbon Dioxide monitoring and blood pressure monitoring were done throughout the procedure. Procedure: The patient was placed in the left lateral decubitis position and pre-procedure medications were administered and a bite block was placed. The endoscope was inserted into the mouth and advanced under direct vision to the third part of duodenum. A careful inspection was made as the upper endoscope was withdrawn including a retroflexed examination of the proximal stomach; Findings and interventions are described below. Findings: Larynx: edema of arytenoid cartilages Esophagus: GE junction at 36 cms. No esophagitis or Schmidt's. Stomach: Moderate diffuse gastric erythema with erythematous gastric folds along the greater curvature with linear ulcerations - biopsied. Antral biopsies were obtained to check for H Pylori. Grade 2 flap valve on retroflexed examination of the cardia. Duodenum: Normal bulb and descending duodenum. Intervention: Biopsies as noted above COLONOSCOPY PROCEDURE NOTE Consent: Indications for the procedure and potential complications of bleeding, perforation, reaction to medications and missed diagnosis were discussed with the patient and informed consent was obtained. Instrument: Olympus PCF H 190 L variable stiffness pediatric colonoscope Monitoring: Vital signs and clinical assessment, intermittent blood pressure monitoring, continuous EKG monitoring, Pulse oximetry and Carbon Dioxide monitoring were done throughout the procedure. Colon withdrawl time was 30 minutes. Procedure: The patient was placed in the left lateral decubitis position and pre-procedure medications were administered. After a digital rectal examination of the ano-rectum, the video colonoscope was inserted into the rectum and advanced through the colon to the cecum. The colonoscope was slowly withdrawn in a retrograde panoramic fashion and the colon mucosa was carefully examined including a retroflexed view of the rectum. Findings and interventions are described below. Procedure Difficulty: : Without difficulty Findings: Terminal Ileum: Not evaluated Cecum: A 3-4 mm sessile polyp removed with a cold bx. Ascending Colon: Normal Transverse Colon: A 5-6 mm sessile polyp removed with a cold bx. Descending Colon: Normal Sigmoid Colon: Two 7-8 mm sessile polyps removed with a cold snare. Moderate diverticulosis Rectum: Normal Ano-rectum: Normal Colon preparation: Good after copious irrigation (pt had a sandwich at 8 am yesterday) Impression and Post Procedure Diagnosis: Endoscopy Findings: LARYNX: Changes suggestive of LPRD STOMACH: Moderate diffuse gastric erythema with erythematous gastric folds along the greater curvature with linear ulcerations - biopsied. (likely due to Naprosyn) Antral biopsies were obtained to check for H Pylori. Colonoscopy Findings: Four small polyps removed Moderate diverticulosis seen in the sigmoid colon Plan: Await pathology results Patient has an appointment on 05/11/21 in the GI Clinic with Shweta Elkins FNP-BC . Repeat Colonoscopy interval based on path results - in 3-5 years if polyps are adenomatous and due to positive FH of colon cancer (brother at age 60 yrs). Above findings were reviewed with the patient and Gastritis, colon polyps and diverticulosis handouts were given in the discharge area. Pt was advised to hold Naprosyn until her FU appt in the GI clinic. Surgeon: Jatinder Thayer MD Anesthesia: MAC (Madison Aparicio CRNA) Was an Clutch Rebuilder used for this Procedure?: Yes Clutch Rebuilder: Sally Minaya Estimated blood loss (mL): 0 Pathology: other (A- GASTRIC ANTRUM R/O H.PYLORI B- GASTRIC FOLDS WITH ULCER C- CECAL POLYP D- TRANSVERSE COLON POLYP E- SIGMOID POLYPS) Condition: stable Disposition: PACU
--- NOTE | 2021-04-26 12:30 | W.PM.OPN ---
Operative Note Operative Note Date of Service: 04/26/21 Narrative: Pre-op diagnosis:?Colon cancer screening, constipation, GERD Post-op diagnosis:?other (GERD, Gastritis, ulcerated gastric folds, colon polyps, diverticulosis) Procedure:? FLEXIBLE TRANSORAL UPPER GASTROINTESTINAL ENDOSCOPY WITH BIOPSIES AND COLONOSCOPY TILL CECUM WITH BIOPSIES AND SNARE POLYPECTOMY UPPER ENDOSCOPY Consent:?Indications for the procedure and potential complications of bleeding, perforation, reaction to medications and missed diagnosis were discussed with the patient with the help of a senior peoplesoft developer and informed consent was obtained. Instrument:?Olympus GIF H 190 mid size upper endoscope Monitoring: Vital signs and clinical assessment, continuous EKG monitoring, Pulse oximetry, Carbon Dioxide monitoring and blood pressure monitoring were done throughout the procedure. Procedure:?The patient was placed in the left lateral decubitis position and pre-procedure medications were administered and a bite block was placed. The endoscope was inserted into the mouth and advanced under direct vision to the third part of duodenum. A careful inspection was made as the upper endoscope was withdrawn including a retroflexed examination of the proximal stomach; Findings and interventions are described below. Findings: Larynx:? edema of arytenoid cartilages Esophagus: GE junction at 36 cms.? No esophagitis or Schmidt's. Stomach: Moderate diffuse gastric erythema with erythematous gastric folds along the greater curvature with linear ulcerations - biopsied. ? Antral biopsies were obtained to check for H Pylori. Grade 2 flap valve on retroflexed examination of the cardia. Duodenum: Normal bulb and descending duodenum. Intervention: Biopsies as noted above COLONOSCOPY PROCEDURE NOTE Consent:?Indications for the procedure and potential complications of bleeding, perforation, reaction to medications and missed diagnosis were discussed with the patient and informed consent was obtained. Instrument:?Olympus PCF H 190 L variable stiffness pediatric colonoscope Monitoring:?Vital signs and clinical assessment, intermittent blood pressure monitoring, continuous EKG monitoring, Pulse oximetry and Carbon Dioxide monitoring were done throughout the procedure. Colon withdrawl time was 30 minutes. Procedure:?The patient was placed in the left lateral decubitis position and pre-procedure medications were administered. After a digital rectal examination of the ano-rectum, the video colonoscope was inserted into the rectum and advanced through the colon to the cecum. The colonoscope was slowly withdrawn in a retrograde panoramic fashion and the colon mucosa was carefully examined including a retroflexed view of the rectum. Findings and interventions are described below. Procedure Difficulty:?: Without difficulty Findings: Terminal Ileum: Not evaluated Cecum:? A 3-4 mm sessile polyp removed with a cold bx. Ascending Colon:??Normal Transverse Colon: A 5-6 mm sessile polyp removed with a cold bx. Descending Colon:? Normal Sigmoid Colon:? Two 7-8 mm sessile polyps removed with a cold snare. Moderate diverticulosis Rectum:??Normal Ano-rectum:??Normal Colon preparation:? Good? after copious irrigation (pt had a sandwich at 8 am yesterday) Impression and Post Procedure Diagnosis: Endoscopy Findings: LARYNX: Changes suggestive of LPRD STOMACH: Moderate diffuse gastric erythema with erythematous gastric folds along the greater curvature with linear ulcerations - biopsied. ? (likely due to Naprosyn) Antral biopsies were obtained to check for H Pylori. Colonoscopy Findings: Four small polyps removed Moderate diverticulosis seen in the sigmoid colon Plan: Await pathology results Patient has an appointment on 05/11/21 in the GI Clinic with Shweta lEkins FNP-BC . Repeat Colonoscopy interval based on path results - in 3-5 years if polyps are adenomatous and due to positive FH of colon cancer (brother at age 60 yrs). Above findings were reviewed with the patient and Gastritis, colon polyps and diverticulosis handouts were given in the discharge area. Pt was advised to hold Naprosyn until her FU appt in the GI clinic. Surgeon:?Jatinder Thayer MD Anesthesia:?MAC (Madison Aparicio CRNA) Was an Housekeeper And Laundry Assistant used for this Procedure?:?Yes Housekeeper And Laundry Assistant:?Sally Minaya Estimated blood loss (mL):?0 Pathology:?other (A- GASTRIC ANTRUM R/O H.PYLORI? B- GASTRIC FOLDS WITH ULCER? C- CECAL POLYP? D- TRANSVERSE COLON POLYP? E- SIGMOID POLYPS) Condition:?stable Disposition:?PACU
[2021-04-26 14:14] VITALS: BP 133/81; PULSE 80; RESP 16; TEMP 36.8; O2SAT 99
[2021-04-26 14:29] VITALS: BP 113/66; PULSE 77; RESP 18; O2SAT 100
[2021-04-26 14:44] VITALS: BP 124/66; PULSE 78; RESP 18; TEMP 36.6; O2SAT 99
[2021-04-27 05:03] LABS: Glucose, Whole Blood 154 mg/dL (60-115)
== END 2021-04-26 15:22 ==
LOC: HO.SSS 11:05
PROVIDERS: PCP Internal Medicine; Visit Provider Internal Medicine Gastroenterology
PROC: (CPT 45385; principal; 2021-04-26 13:10)
DX: Z12.11 Encounter for screening for malignant neoplasm of colon (principal); D12.0 Benign neoplasm of cecum; K21.9 Gastro-esophageal reflux disease without esophagitis; D12.3 Benign neoplasm of transverse colon; D12.5 Benign neoplasm of sigmoid colon; K57.30 Diverticulosis of large intestine without perforation or abscess without bleeding; K59.00 Constipation, unspecified; K29.50 Unspecified chronic gastritis without bleeding; K25.9 Gastric ulcer, unspecified as acute or chronic, without hemorrhage or perforation; I10 Essential (primary) hypertension; H91.90 Unspecified hearing loss, unspecified ear; D51.0 Vitamin B12 deficiency anemia due to intrinsic factor deficiency; J45.909 Unspecified asthma, uncomplicated; E11.9 Type 2 diabetes mellitus without complications; Z79.4 Long term (current) use of insulin; Z79.899 Other long term (current) drug therapy; Z88.0 Allergy status to penicillin; Z88.8 Allergy status to other drugs, medicaments and biological substances; Z90.49 Acquired absence of other specified parts of digestive tract
CPT/HCPCS: 45385; 45380; 43239; 82947; 88305; 88342; J3010

== ENCOUNTER → 2021-05-06 12:50 | Outpatient (BNVA) | payer OTHER, SELFPAY | PROVIDERS: PCP Internal Medicine; Visit Provider Dietitian, Registered | DX: E11.49 Type 2 diabetes mellitus with other diabetic neurological complication (principal) | CPT/HCPCS: 97803 ==

== ENCOUNTER → 2021-05-11 10:43 | Outpatient (BNVA) | payer OTHER, SELFPAY | PROVIDERS: PCP Internal Medicine; Referring Provider Internal Medicine; Visit Provider Nurse Practitioner Family | DX: K21.9 Gastro-esophageal reflux disease without esophagitis (principal); K58.2 Mixed irritable bowel syndrome; K59.04 Chronic idiopathic constipation; D36.9 Benign neoplasm, unspecified site | CPT/HCPCS: 99212 ==

== ENCOUNTER → 2021-05-19 13:44 | Outpatient (BNVA) | payer OTHER, SELFPAY | PROVIDERS: PCP Internal Medicine; Visit Provider Nurse Practitioner Gerontology | DX: E78.00 Pure hypercholesterolemia, unspecified (principal); E11.65 Type 2 diabetes mellitus with hyperglycemia; E53.8 Deficiency of other specified B group vitamins; I10 Essential (primary) hypertension; Z79.4 Long term (current) use of insulin | CPT/HCPCS: 82947 ==

== ENCOUNTER 2021-05-20 13:23 | Outpatient (REF) | payer OTHER, SELFPAY ==
[2021-05-20 15:18] LABS: Creatinine Urine 33.89 mg/dL; Microalbumin Urine < 5.0 mg/L
[2021-05-20 15:38] LABS: Folate 17.5 ng/mL (> or = 4.0); Vitamin B12 447 pg/mL (200-900)
== END 2021-05-20 13:24 | disposition home or self-care (01) ==
LOC: HO.LAB 13:23
PROVIDERS: PCP Internal Medicine; Visit Provider Nurse Practitioner Gerontology
DX: D51.0 Vitamin B12 deficiency anemia due to intrinsic factor deficiency (principal); E53.8 Deficiency of other specified B group vitamins; E11.49 Type 2 diabetes mellitus with other diabetic neurological complication; E78.5 Hyperlipidemia, unspecified; I10 Essential (primary) hypertension
CPT/HCPCS: 36415; 82043; 82607; 82746

== ENCOUNTER 2021-07-05 08:37 | Emergency (ER) | payer OTHER, SELFPAY ==
[2021-07-05 09:01] VITALS: BP 124/72; PULSE 81; RESP 16; TEMP 36.6; O2SAT 98; BMI 28.5
[2021-07-05 09:30] LABS: COVID-19 Test Positive (Negative)
--- NOTE | 2021-07-05 11:07 | ED_ITS ---
HPI - URI/Sore Throat General Chief Complaint: Upper Respiratory Symptoms Stated Complaint: asthma,congestion Time Seen by Provider: 07/05/21 11:03 Source: patient and old records reviewed Mode of arrival: ambulatory Limitations: no limitations History of Present Illness HPI Narrative: danielito mejia 2 MD elicited complaint: cough and rhinorrhea Pertinent past history: asthma Onset (ago): day(s) (last several ) Consistency: intermittent Severity: mild Description of mucous: clear Able to tolerate fluids by mouth: Yes Exacerbating factors: nothing Relieving factors: nothing Associated symptoms: myalgias, rhinorrhea and cough Treatments prior to arrival: none Related Data Home Medications Medication Instructions Recorded Confirmed lorazepam 0.5 mg tablet 0.5 mg PO DAILY PRN 04/16/20 05/19/21 zolpidem 5 mg tablet 5 mg PO BEDTIME PRN 04/16/20 05/19/21 sertraline 100 mg tablet 100 mg PO DAILY 06/17/20 05/19/21 lancets 28 gauge #100 ea 07/13/20 05/19/21 cyanocobalamin (vitamin B-12) 500 500 mcg SUBLINGUAL DAILY 02/19/21 05/19/21 mcg disintegrating tablet,sublingual pioglitazone 45 mg tablet 45 mg PO DAILY 02/19/21 05/19/21 Previous Rx's Medication Instructions Recorded cetirizine 10 mg capsule (Zyrtec) 10 mg PO DAILY PRN #30 cap 06/24/20 canagliflozin 100 mg tablet 100 mg PO DAILY 30 Days #30 tab 07/13/20 hydrocortisone-acetic acid 1 %-2 % 4 drp OTIC (EARS) TID 10 Days #10 07/17/20 ear drops ml atorvastatin 20 mg tablet 20 mg PO DAILY 90 Days #90 tab 07/20/20 polyethylene glycol 3350 17 17 g PO DAILY 30 Days #510 g 09/29/20 gram/dose oral powder (Miralax) flash glucose sensor (FreeStyle #2 ea 10/21/20 Sandra 14 Day Sensor) blood sugar diagnostic (FreeStyle 1 strip MISCELLANEOUS TID #100 11/10/20 Lite Strips) strip clotrimazole-betamethasone 1 1 appl TOPICAL BID 5 Days #45 g 11/25/20 %-0.05 % topical cream terconazole 0.8 % vaginal cream 1 appful VAGINAL BEDTIME 3 Days 11/25/20 #20 g hydrochlorothiazide 12.5 mg tablet 12.5 mg PO QAM #90 tab 12/12/20 metoclopramide HCl 5 mg tablet 5 mg PO DAILY 90 Days #90 tab 12/12/20 FreeStyle Precision Margarito Strips #25 ea NS 01/18/21 (blood sugar diagnostic) cholecalciferol (vitamin D3) 25 25 mcg PO DAILY 90 Days #90 tab 03/14/21 mcg (1,000 unit) tablet (Vitamin D3) Lantus Solostar U-100 Insulin 100 32 unit (0.32 mL) SUBCUT DAILY 30 03/22/21 unit/mL (3 mL) subcutaneous pen Days #9.6 ml NS (insulin glargine) pantoprazole 40 mg tablet,delayed 40 mg PO DAILY #30 tab 03/26/21 release naproxen 500 mg tablet 500 mg PO BID PRN #60 tab 04/10/21 blood sugar diagnostic (FreeStyle #150 ea 04/14/21 Lite Strips) blood-glucose meter (FreeStyle #1 ea 04/14/21 Lite Meter) lancets 28 gauge (FreeStyle #200 ea 04/14/21 Lancets) insulin lispro 100 unit/mL 3 - 6 unit (0.03 - 0.06 mL) SUBCUT 04/15/21 subcutaneous pen (Humalog KwikPen TID #15 ml (U-100) Insulin) pen needle, diabetic 32 gauge x #150 ea 04/15/21 5/32 (BD Sondra 2nd Gen Pen Needle) ProAir HFA 90 mcg/actuation 2 puff INHALATION Q4-6H PRN 30 04/22/21 aerosol inhaler (albuterol sulfate) Days g NS Shower Chair #1 ea 05/11/21 toilet seat elevator #1 ea 05/11/21 wheat dextrin 3 gram/3.5 gram oral 1 packet PO DAILY #28 ea 05/11/21 powder packet (Benefiber Clear Sugar Free(dextrin)) terbinafine HCl 1 % topical cream 1 appl TOPICAL BID #15 g 05/19/21 (Athlete's Foot (terbinafine)) linaclotide 290 mcg capsule 290 mcg PO QAM #30 cap 05/25/21 (Linzess) montelukast 10 mg tablet 10 mg PO DAILY #90 tab 06/01/21 flash glucose scanning reader #1 ea 06/10/21 (FreeStyle Sandra 14 Day [place]) albuterol sulfate 2.5 mg (3 mL) INHALATION Q4-6H PRN 07/05/21 #75 ml prednisone 20 mg tablet 40 mg PO DAILY 5 Days #10 tab 07/05/21 Allergies Allergy/AdvReac Type Severity Reaction Status Date / Time Penicillins Allergy Mild RASH/DYSPNE Verified 05/19/21 14:30 A metformin AdvReac Intermediate stomach Verified 05/19/21 14:30 upset Review of Systems Review of Systems: Constitutional : no Fever, positive Chills, positive fatigue, positive Malaise ENT/Mouth : no sore throat, positive runny nose Eyes: No Discharge Cardiovascular : No Chest Pain, No SOB Respiratory : pos Cough, No Sputum Gastrointestinal : No Nausea, No Vomiting, No Diarrhea Genitourinary : No Dysuria, No Urinary Frequency Musculoskeletal : positive Myalgia Skin : No rash Neuro : No Headache PMFSH Past Medical History Attestation statement: The following information was validated with the patient. Medical History Arthritis B12 deficiency Depression with anxiety Diabetes DM2 (diabetes mellitus, type 2) Dyslipidemia Ear pain Edema Essential hypertension Fecal incontinence GERD (gastroesophageal reflux disease) Hearing loss Hearing loss Insomnia MCFP (current) use of insulin Moderate asthma Moderate recurrent major depression Overweight Pernicious anemia Polyarthralgia Tubular adenoma Type 2 diabetes mellitus with diabetic polyneuropathy Umbilical hernia Surgical History History of carpal tunnel release History of cholecystectomy History of endometrial ablation History of foot surgery History of surgery on arm History of tubal ligation History of umbilical hernia repair Family History Family History Mother Breast cancer Paternal Grandmother Breast cancer Brother Colon cancer Family/Other FH: mental illness Mental health disorder Social History Social History Household Members: Children Housing: Apartment Alcohol intake: never Patient Tobacco Use Status: Never used Tobacco e-Cigarette/Vaping Use: Never Used Second Hand Smoke Exposure: No Advance Directives: No Advance Directives Information Provided: No service: No Current occupational status: disabled Physical Exam Vital Signs: Vital Signs: Last Vital Signs Temp 98 F 07/05/21 09:01 Pulse 81 07/05/21 09:01 Resp 16 07/05/21 09:01 BP 124/72 07/05/21 09:01 Pulse Ox 98 07/05/21 09:01 BMI result Body Mass Index 28.5 Appearance: Alert. Oriented X3. No acute distress. Eyes: Pupils equal, round and reactive to light. ENT: Pharynx normal. Neck: Normal inspection. Neck supple. CVS: Normal heart rate and rhythm. Pulses normal. Respiratory: No respiratory distress. Breath sounds normal. Abdomen: Soft and nontender. Skin: Skin warm and dry. Normal skin color. Extremities: No lower extremity edema. Neuro: Oriented X 3. No motor deficit. No sensory deficit. MDM - URI/Sore Throat MDM Narrative Medical decision making narrative: 55 yo female with DM, asthma vaccinated x2 here with several days of cough - feels controlled at home, no hypoxia overall not toxic, clear lungs - + COVID in ED, 98% on RA - stable for DC will fill out Mab form - discussed reasons to return, PRN prednisone if her asthma flairs Lab Data Labs: Lab Results 07/05/21 Range/Units 09:05 COVID-19 ([facility]) Positive A (Negative) COVID-19 Clin Com See Note Discharge Plan Discharge Clinical Impression: COVID-19 Patient Disposition: Home, Self-Care Instructions: COVID-19 (Coronavirus Disease 2019) (ED) Additional Instructions: return to ED for any worsening symptoms or concerns MONITOR BREATHING Prescriptions: New prednisone 20 mg tablet 40 mg PO DAILY 5 Days Qty: 10 RF: 0 albuterol sulfate 2.5 mg /3 mL (0.083 %) solution for nebulization 2.5 mg inhalation Q4-6H PRN (Reason: bronchospasm) Qty: 75 RF: 0 No Action atorvastatin 20 mg tablet 20 mg PO DAILY 90 Days Qty: 90 RF: 1 polyethylene glycol 3350 [Miralax] 17 gram/dose powder 17 g PO DAILY 30 Days Qty: 510 RF: 3 (DME) FreeStyle Sandra 14 Day Sensor Kit See Rx Instructions .MEDSUPPLY Qty: 2 RF: 11 blood sugar diagnostic [FreeStyle Lite Strips] Strip 1 strip miscellaneous TID Qty: 100 RF: 9 hydrochlorothiazide 12.5 mg tablet 12.5 mg PO QAM Qty: 90 RF: 2 metoclopramide HCl 5 mg tablet 5 mg PO DAILY 90 Days Qty: 90 RF: 3 (DME) FreeStyle Precision Margarito Strips Strip See Rx Instructions .MEDSUPPLY Qty: 25 RF: 6 cholecalciferol (vitamin D3) [Vitamin D3] 25 mcg (1,000 unit) tablet 25 mcg PO DAILY 90 Days Qty: 90 RF: 3 naproxen 500 mg tablet 500 mg PO BID PRN (Reason: for pain) Qty: 60 RF: 3 (DME) FreeStyle Lite Strips Strip See Rx Instructions .ROUTE .MEDSUPPLY Qty: 150 RF: 11 (DME) blood-glucose meter [FreeStyle Lite Meter] Kit See Rx Instructions .ROUTE .MEDSUPPLY Qty: 1 RF: 0 (DME) lancets [FreeStyle Lancets] 28 gauge misc See Rx Instructions .ROUTE .MEDSUPPLY Qty: 200 RF: 11 insulin lispro [Humalog KwikPen Insulin] 100 unit/mL insulin pen 3 - 6 unit subcut TID Qty: 15 RF: 3 (DME) pen needle, diabetic [BD Sondra 2nd Gen Pen Needle] 32 gauge x 5/32 needle See Rx Instructions .MEDSUPPLY Qty: 150 RF: 11 albuterol sulfate [ProAir HFA] 90 mcg/actuation HFA aerosol inhaler 2 puff inhalation Q4-6H PRN (Reason: shortness of breath or wheezing) 30 Days RF: 0 (DME) Shower Chair Misc See Rx Instructions .Route Qty: 1 RF: 0 (DME) toilet seat elevator See Rx Instructions .Route .MEDSUPPLY Qty: 1 RF: 0 Linzess 290 mcg capsule 290 mcg PO QAM Qty: 30 RF: 4 montelukast 10 mg tablet 10 mg PO DAILY Qty: 90 RF: 3 (DME) FreeStyle Sandra 14 Day [place] Misc See Rx Instructions .ROUTE .MEDSUPPLY Qty: 1 RF: 0 flu vacc [id number] 6mos up(PF) 60 mcg (15 mcg x 4)/0.5 mL syringe 0.5 ml IM ONCE Qty: 0.5 RF: 0 zolpidem 5 mg tablet 5 mg PO BEDTIME PRNRF: 0 lorazepam 0.5 mg tablet 0.5 mg PO DAILY PRNRF: 0 hydrocortisone-acetic acid 1-2 % drops 4 drp otic (ears) TID 10 Days Qty: 10 RF: 0 Zyrtec 10 mg capsule 10 mg PO DAILY PRN (Reason: allergy symptoms) Qty: 30 RF: 0 Lantus Solostar U-100 Insulin 100 unit/mL (3 mL) insulin pen 32 unit subcut DAILY 30 Days Qty: 9.6 RF: 6 sertraline 100 mg tablet 100 mg PO DAILY RF: 0 terbinafine HCl [Athlete's Foot (terbinafine)] 1 % cream 1 appl topical BID Qty: 15 RF: 3 (DME) lancets 28 gauge misc See Rx Instructions lancet topical TID Qty: 100 RF: 0 canagliflozin 100 mg tablet 100 mg PO DAILY 30 Days Qty: 30 RF: 6 terconazole 0.8 % cream 1 appful vaginal BEDTIME 3 Days Qty: 20 RF: 0 clotrimazole-betamethasone 1-0.05 % cream 1 appl topical BID 5 Days Qty: 45 RF: 0 pioglitazone 45 mg tablet 45 mg PO DAILY RF: 0 cyanocobalamin (vitamin B-12) 500 mcg tablet,disintegrating 500 mcg sublingual DAILY RF: 0 pantoprazole 40 mg tablet,delayed release (DR/EC) 40 mg PO DAILY Qty: 30 RF: 2 Benefiber Clear SF (dextrin) 3 gram/3.5 gram powder in packet 1 packet PO DAILY Qty: 28 RF: 5 Print Language: Tuvaluan
--- NOTE | 2021-07-05 12:58 | PC.NURSE ---
PT EVALUATED BY DR STUART. PT AWARE AND AGREEABLE TO PLAN. PT AWAKE, ALERT AND ORIENTED X 3. SKIN WARM AND DRY. RESP UNLABORED. SPEAKING IN FULL CLEAR SENTENCES. PLAN IS FOR DC HOME. INFORMATION GIVEN REGARDING MONOCLONAL ANTIBIODIES.
== END 2021-07-05 13:01 | disposition home or self-care (01) ==
PROVIDERS: Emergency Provider Emergency Medicine; PCP Internal Medicine
DX: U07.1 COVID-19 (principal); E11.9 Type 2 diabetes mellitus without complications; E78.5 Hyperlipidemia, unspecified; I10 Essential (primary) hypertension; J45.909 Unspecified asthma, uncomplicated; Z79.899 Other long term (current) drug therapy; Z79.02 Long term (current) use of antithrombotics/antiplatelets; Z79.4 Long term (current) use of insulin
CPT/HCPCS: 36415; 87635; 99282; 99283

== ENCOUNTER 2021-07-22 08:15 | Outpatient (REF) | payer OTHER, SELFPAY ==
[2021-07-22 09:40] LABS: Alanine Aminotransferase 22 U/L (0-31); Albumin Level 3.8 g/dL (3.5-5.0); Alkaline Phosphatase 52 U/L (39-117); Anion Gap 12 (12-20); Aspartate Amino Transferase 19 U/L (5-31); Bilirubin Total 0.7 mg/dL (0.0-1.0); Blood Urea Nitrogen 18 mg/dL (9-16); Calcium 9.5 mg/dL (8.4-10.2); Carbon Dioxide 27 mmol/L (22-29); Chloride 106 mmol/L (96-108); Cholesterol 123 mg/dL; Estimated Glomerular Filt Rate > 60; Glucose Fasting 153 mg/dL (60-99); HDL Cholesterol 38 mg/dL; LDL Cholesterol Calculated 68 mg/dl; Potassium 3.9 mmol/L (3.3-5.1); Sodium 141 mmol/L (135-145); Total Protein 6.8 g/dL (6.5-8.0); Triglycerides 87 mg/dL
[2021-07-22 10:10] LABS: Vitamin B12 462 pg/mL (200-900)
== END 2021-07-22 08:16 | disposition home or self-care (01) ==
LOC: HO.LAB 08:15
PROVIDERS: Nurse Practitioner Gerontology; PCP Internal Medicine; Visit Provider Internal Medicine
DX: I10 Essential (primary) hypertension (principal); E78.5 Hyperlipidemia, unspecified; E53.8 Deficiency of other specified B group vitamins; E11.42 Type 2 diabetes mellitus with diabetic polyneuropathy
CPT/HCPCS: 36415; 80053; 80061; 82607; 99211

== ENCOUNTER 2021-07-27 10:54 | Outpatient (REF) | payer OTHER, SELFPAY ==
--- NOTE | 2021-07-27 10:59 | ECG_ITS ---
Test Reason : palpitations Blood Pressure : / mmHG Vent. Rate : 071 BPM Atrial Rate : 071 BPM P-R Int : 150 ms QRS Dur : 084 ms QT Int : 400 ms P-R-T Axes : 063 066 055 degrees QTc Int : 434 ms Normal sinus rhythm Normal ECG When compared to the previous EKG of No significant changes seen Referred By: Norma Bland Electronically Signed By:JOANNE GARCIA MD
== END 2021-07-27 10:55 | disposition home or self-care (01) ==
LOC: HO.LAB 10:54
PROVIDERS: PCP Internal Medicine; Visit Provider Internal Medicine
DX: R00.2 Palpitations (principal)
CPT/HCPCS: 93005

== ENCOUNTER 2021-08-12 15:45 | Outpatient (REF) | payer OTHER, SELFPAY ==
[2021-08-12 16:58] LABS: Influenza A PCR NEGATIVE (Negative); Influenza B PCR NEGATIVE (Negative); Resp Syncy Virus RNA Qual PCR NEGATIVE (Negative); SARS COV2 PCR INHOUSE NEGATIVE (Negative)
== END 2021-08-12 15:46 | disposition home or self-care (01) ==
LOC: HO.LAB 15:45
PROVIDERS: Visit Provider Nurse Practitioner Family
DX: Z20.822 Contact with and (suspected) exposure to COVID-19 (principal); R53.83 Other fatigue
CPT/HCPCS: 0241U

== ENCOUNTER 2021-09-05 08:49 | Emergency (ER) | payer OTHER, SELFPAY ==
--- NOTE | ~2021-09-05 | CT_ITS ---
EXAMINATION: CT ABDOMEN AND PELVIS WITH CONTRAST CLINICAL INFORMATION: Abdominal pain. Epigastric and left lower quadrant. COMPARISON: Abdominal ultrasound dated 09/24/2020. CT abdomen/pelvis dated 07/09/2018. TECHNIQUE: Multidetector volumetric images were obtained from the superior aspect of the liver through the pubic symphysis following administration 80 mL of Omnipaque 350 intravenous contrast. Sagittal and coronal reformatted images were obtained on the technologist's workstation. Oral contrast: No This CT examination was performed using dose optimization techniques as appropriate, variously including the following: *Automated exposure control *Adjustment of mA and/or kV according to patient size (this includes techniques or standardized protocols for targeted exams where dose is matched to indication/reason for exam; i.e. extremities or head) *Use of iterative reconstruction technique DLP: 478 mGy-cm FINDINGS: LUNG BASES: Mild emphysematous changes within the lung bases. LIVER, GALLBLADDER, AND BILIARY TREE: The liver is normal in size, shape, and attenuation. No focal hepatic lesion or biliary ductal dilatation is present. Status post cholecystectomy. PANCREAS: Unremarkable. SPLEEN: Unremarkable. ADRENAL GLANDS: Unremarkable. KIDNEYS AND URETERS: The kidneys are normal in size, shape, and attenuation. No hydronephrosis, hydroureter, or calculi seen. Simple appearing renal cysts. Findings are not clinically significant and no follow-up imaging is recommended. No perinephric stranding. BLADDER: Unremarkable. GASTROINTESTINAL TRACT: No bowel wall thickening or associated inflammatory change. No small or large bowel obstruction. Unremarkable appendix. PERITONEAL CAVITY: No intra-abdominal free air or free fluid. No intra-abdominal mass or organized fluid collection/abscess formation. ABDOMINAL WALL: No significant hernia is appreciated. LYMPH NODES: Normal. VASCULAR: Unremarkable. PELVIC VISCERA: Probable small enhancing uterine fibroid measuring 1.4 cm. The uterus and adnexa are otherwise unremarkable. OSSEOUS STRUCTURES: Unremarkable. CT/CT abdomen pelvis w con IMPRESSION: 1. No bowel wall thickening or inflammatory change. No small or large bowel obstruction. Unremarkable appendix. 2. No intra-abdominal mass, lymphadenopathy, or ascites. 3. No hydronephrosis or nephrolithiasis. 4. Probable small uterine fibroid measuring 1.4 cm. Fleischner guidelines were followed.
[2021-09-05 09:01] VITALS: BP 126/71; PULSE 74; RESP 20; TEMP 36.8; O2SAT 98; BMI 26.4
[2021-09-05 09:21] VITALS: BP 140/69; PULSE 68; RESP 14; TEMP 37.1; O2SAT 98
--- NOTE | 2021-09-05 09:45 | ED_ITS ---
HPI - Abdominal Pain General Chief Complaint: Abdominal Pain Stated Complaint: abd pain Time Seen by Provider: 09/05/21 09:32 Source: patient Mode of arrival: ambulatory Limitations: no limitations History of Present Illness HPI narrative: This is a 55 years old female presented to the ED with a chief complaint of abdominal pain. She states the pain started about 2 days ago she had nausea vomiting and diarrhea as well. The pain is localized in the epigastrium and left lower quadrant. The patient has history of diabetes she use insulin MD elicited complaint: abdominal pain Pertinent past history: other (diabetes) Onset (ago): day(s) (2) Pain Consistency: constant Location: epigastric Severity: mild Quality: cramping Radiation: LLQ and epigastric Migration to: no migration Exacerbating factors: nothing Relieving factors: nothing Associated symptoms: nausea Related Data Home Medications Medication Instructions Recorded Confirmed lorazepam 0.5 mg tablet 0.5 mg PO DAILY PRN 04/16/20 08/12/21 zolpidem 5 mg tablet 5 mg PO BEDTIME PRN 04/16/20 08/12/21 sertraline 100 mg tablet 100 mg PO DAILY 06/17/20 08/12/21 lancets 28 gauge #100 ea 07/13/20 08/12/21 cyanocobalamin (vitamin B-12) 500 500 mcg SUBLINGUAL DAILY 02/19/21 08/12/21 mcg disintegrating tablet,sublingual pioglitazone 30 mg tablet 30 mg PO DAILY 08/12/21 08/12/21 Previous Rx's Medication Instructions Recorded cetirizine 10 mg capsule (Zyrtec) 10 mg PO DAILY PRN #30 cap 06/24/20 polyethylene glycol 3350 17 17 g PO DAILY 30 Days #510 g 09/29/20 gram/dose oral powder (Miralax) flash glucose sensor (FreeStyle #2 ea 10/21/20 Sandra 14 Day Sensor) clotrimazole-betamethasone 1 1 appl TOPICAL BID 5 Days #45 g 11/25/20 %-0.05 % topical cream terconazole 0.8 % vaginal cream 1 appful VAGINAL BEDTIME 3 Days 11/25/20 #20 g metoclopramide HCl 5 mg tablet 5 mg PO DAILY 90 Days #90 tab 12/12/20 FreeStyle Precision Margarito Strips #25 ea NS 01/18/21 (blood sugar diagnostic) cholecalciferol (vitamin D3) 25 25 mcg PO DAILY 90 Days #90 tab 03/14/21 mcg (1,000 unit) tablet (Vitamin D3) Lantus Solostar U-100 Insulin 100 32 unit (0.32 mL) SUBCUT DAILY 30 03/22/21 unit/mL (3 mL) subcutaneous pen Days #9.6 ml NS (insulin glargine) pantoprazole 40 mg tablet,delayed 40 mg PO DAILY #30 tab 03/26/21 release blood sugar diagnostic (FreeStyle #150 ea 04/14/21 Lite Strips) blood-glucose meter (FreeStyle #1 ea 04/14/21 Lite Meter) lancets 28 gauge (FreeStyle #200 ea 04/14/21 Lancets) insulin lispro 100 unit/mL 3 - 6 unit (0.03 - 0.06 mL) SUBCUT 04/15/21 subcutaneous pen (Humalog KwikPen TID #15 ml (U-100) Insulin) pen needle, diabetic 32 gauge x #150 ea 04/15/21 (BD Sondra 2nd Gen Pen Needle) ProAir HFA 90 mcg/actuation 2 puff INHALATION Q4-6H PRN 30 04/22/21 aerosol inhaler (albuterol sulfate) Days g NS wheat dextrin 3 gram/3.5 gram oral 1 packet PO DAILY #28 ea 05/11/21 powder packet (Benefiber Clear Sugar Free(dextrin)) terbinafine HCl 1 % topical cream 1 appl TOPICAL BID #15 g 05/19/21 (Athlete's Foot (terbinafine)) linaclotide 290 mcg capsule 290 mcg PO QAM #30 cap 05/25/21 (Linzess) montelukast 10 mg tablet 10 mg PO DAILY #90 tab 06/01/21 flash glucose scanning reader #1 ea 06/10/21 (FreeStyle Sandra 14 Day [place]) albuterol sulfate 2.5 mg (3 mL) INHALATION Q4-6H PRN 07/05/21 #75 ml hydrochlorothiazide 12.5 mg tablet 12.5 mg PO QAM #90 tab 07/07/21 atorvastatin 20 mg tablet 20 mg PO DAILY 90 Days #90 tab 07/09/21 canagliflozin 100 mg tablet 100 mg PO DAILY 30 Days #30 tab 07/27/21 Shower Chair #1 ea 08/02/21 toilet seat elevator #1 ea 08/02/21 naproxen 500 mg tablet 500 mg PO BID PRN #60 tab 08/05/21 hydrocortisone-acetic acid 1 %-2 % 4 drp OTIC (EARS) QID 7 Days #10 ml 08/12/21 ear drops ondansetron 4 mg disintegrating 4 mg PO Q8H PRN 7 Days #21 tab 09/01/21 tablet Allergies Allergy/AdvReac Type Severity Reaction Status Date / Time Penicillins Allergy Mild RASH/DYSPNE Verified 09/05/21 09:05 A metformin AdvReac Intermediate stomach Verified 09/05/21 09:05 upset Review of Systems Review of Systems Yes all other systems are reviewed and are negative Cardiovascular: Reports no additional cardiovascular complaints Respiratory: Reports no additional respiratory complaints Gastrointestinal: Reports abdominal pain, Reports diarrhea and Reports vomiting Reports system reviewed and no additional complaints, except as documented Endocrine: Reports no additional endocrine complaints PMFSH Past Medical History Medical History Arthritis B12 deficiency Depression with anxiety Diabetes DM2 (diabetes mellitus, type 2) Dyslipidemia Ear discomfort Ear pain Edema Essential hypertension Fecal incontinence GERD (gastroesophageal reflux disease) Hearing loss Hearing loss Insomnia 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 Moderate asthma Moderate recurrent major depression Overweight Palpitations Pernicious anemia Polyarthralgia Tubular adenoma Type 2 diabetes mellitus with diabetic polyneuropathy Umbilical hernia Surgical History History of carpal tunnel release History of cholecystectomy History of endometrial ablation History of foot surgery History of surgery on arm History of tubal ligation History of umbilical hernia repair Family History Family History Mother Breast cancer Paternal Grandmother Breast cancer Brother Colon cancer Family/Other FH: mental illness Mental health disorder Social History Social History Household Members: Children Housing: Apartment Alcohol intake: never Patient Tobacco Use Status: Never used Tobacco e-Cigarette/Vaping Use: Never Used Second Hand Smoke Exposure: No Advance Directives: No Advance Directives Information Provided: Yes Patient : No service: No Current occupational status: disabled Physical Exam ED Vital Signs: Vital Signs - 24 hr 09/05/21 09:01 09/05/21 09:21 09/05/21 12:31 Temperature 98.2 F 98.7 F Pulse Rate 74 68 68 Respiratory Rate 20 14 14 Blood Pressure 126/71 140/69 H 121/61 Pulse Oximetry 98 98 98 BMI result Body Mass Index 26.4 Const General: cooperative Nutritional Appearance: average body habitus Orientation/consciousness: patient oriented x3 Limitations: no limitations HENMT Head: Yes normal to inspection General nose exam: Normal external nose present Face and sinus: Yes normal facial exam Mouth: Normal oral and palatal mucosa present Throat: Yes posterior oropharynx normal Neck Neck: Yes normal visual inspection, Yes full ROM and Yes no lymphadenopathy Chest Chest palpation & inspection: normal inspection of the chest Resp Effort & Inspection: normal respiratory effort and able to speak in complete sentences Auscultation: clear to auscultation bilaterally Cardio Jugular venous distension: no JVD Rate: regular rate Rhythm: regular rhythm GI Inspection: Yes normal to inspection Palpation (GI): Soft to palpation, not firm, nontender, no guarding and not ri gid General: Yes no CVA tenderness Back/Spine/Pelvis Back: no CVA tenderness Thoracic/Lumbar Spine: thoracic and lumbar spine normal to inspection Skin General skin exam: no rashes or lesions noted, elasticity normal and turgor normal Lesions: no lesions Rashes: no rashes Neuro General: patient oriented x3 Course Reevaluation(s) Reevaluation #1: Patient was re-evaluated at this time she is doing much better, she has no abdominal pain, labs are within normal limits the CT scan of the abdomen and pelvis is within normal limit she can be discharged home Time: 13:40 MDM - Abdominal Pain Lab Data Result diagrams: 09/05/21 10:05 09/05/21 10:05 Labs: Lab Results 09/05/21 09/05/21 09/05/21 Range/Units 09:53 10:05 10:05 WBC 6.2 (4.8-10.8) X10*3/uL RBC 5.24 (4.20-5.50) X10*6/uL Hgb 14.8 (12.0-16.0) g/dl Hct 46.2 (37.0-47.0) % MCV 88.2 (80.0-98.0) fL MCH 28.2 (27.0-33.0) pg MCHC 32.0 (31.0-35.0) g/dl RDW 12.6 (11.0-16.0) % Plt Count 170 (160-400) X10*3/uL MPV 12.0 (9.4-12.3) fL Immature Gran % (Auto) 0.3 (0.0-0.4) % Neut % (Auto) 56.0 (45-73) % Lymph % (Auto) 33.4 (20-40) % [place] % (Auto) 8.2 (2-11) % Eos % (Auto) 1.5 (0-4) % Baso % (Auto) 0.6 (0-2) % Lymph # (Auto) 2.1 (1.2-4.9) X10*3/uL [place] # (Auto) 0.5 (0.1-1.2) X10*3/uL Eos # (Auto) 0.1 (0.0-0.4) X10*3/uL Baso # (Auto) 0.0 (0.0-0.2) X10*3/uL Abs Immat Gran (auto) 0.02 (0.00-0.03) X10*3/uL Absolute Neuts (auto) 3.5 (2.0-8.3) x10*3/uL Absolute Nucleated RBC 0.000 (0.0-0.012) X10*3/uL Nucleated RBC % (auto) 0.0 (0.0-0.2) /100WBC Sodium 141 (135-145) mmol/L Potassium 4.1 (3.3-5.1) mmol/L Chloride 101 (96-108) mmol/L Carbon Dioxide 32 H (22-29) mmol/L Anion Gap 12 (12-20) BUN 14 (9-16) mg/dL Creatinine 0.82 (0.5-1.4) mg/dL Estim Creat Clear Calc 70.8 Estimated GFR > 60 POC Glucose 147 H (60-115) mg/dL Random Glucose 160 H (60-115) mg/dL Calcium 10.1 D (8.4-10.2) mg/dL Total Bilirubin 0.4 (0.0-1.0) mg/dL AST 28 D (5-31) U/L ALT 29 (0-31) U/L Alkaline Phosphatase 53 (39-117) U/L Total Protein 7.4 (6.5-8.0) g/dL Albumin 4.2 (3.5-5.0) g/dL Lipase 112 H (8-78) U/L Urine Color Urine Appearance Urine pH (5.0-8.0) Ur Specific [place] (1.005-1.025) Urine Protein (NEG-TRACE) MG/DL Urine Glucose (UA) (NEG) MG/DL Urine Ketones (NEG) MG/DL Urine Blood (NEG) Urine Nitrite (NEG) Ur Leukocyte Esterase (NEG) Urine RBC (0) /HPF Urine WBC (0-4) /HPF Ur Squamous Epith Cells /LPF Amorphous Sediment /LPF Urine Bacteria /LPF 09/05/21 Range/Units 10:22 WBC (4.8-10.8) X10*3/uL RBC (4.20-5.50) X10*6/uL Hgb (12.0-16.0) g/dl Hct (37.0-47.0) % MCV (80.0-98.0) fL MCH (27.0-33.0) pg MCHC (31.0-35.0) g/dl RDW (11.0-16.0) % Plt Count (160-400) X10*3/uL MPV (9.4-12.3) fL Immature Gran % (Auto) (0.0-0.4) % Neut % (Auto) (45-73) % Lymph % (Auto) (20-40) % [place] % (Auto) (2-11) % Eos % (Auto) (0-4) % Baso % (Auto) (0-2) % Lymph # (Auto) (1.2-4.9) X10*3/uL [place] # (Auto) (0.1-1.2) X10*3/uL Eos # (Auto) (0.0-0.4) X10*3/uL Baso # (Auto) (0.0-0.2) X10*3/uL Abs Immat Gran (auto) (0.00-0.03) X10*3/uL Absolute Neuts (auto) (2.0-8.3) x10*3/uL Absolute Nucleated RBC (0.0-0.012) X10*3/uL Nucleated RBC % (auto) (0.0-0.2) /100WBC Sodium (135-145) mmol/L Potassium (3.3-5.1) mmol/L Chloride (96-108) mmol/L Carbon Dioxide (22-29) mmol/L Anion Gap (12-20) BUN (9-16) mg/dL Creatinine (0.5-1.4) mg/dL Estim Creat Clear Calc Estimated GFR POC Glucose (60-115) mg/dL Random Glucose (60-115) mg/dL Calcium (8.4-10.2) mg/dL Total Bilirubin (0.0-1.0) mg/dL AST (5-31) U/L ALT (0-31) U/L Alkaline Phosphatase (39-117) U/L Total Protein (6.5-8.0) g/dL Albumin (3.5-5.0) g/dL Lipase (8-78) U/L Urine Color YELLOW Urine Appearance CLEAR Urine pH 6.0 (5.0-8.0) Ur Specific [place] 1.015 (1.005-1.025) Urine Protein NEG (NEG-TRACE) MG/DL Urine Glucose (UA) >=1000 H (NEG) MG/DL Urine Ketones NEG (NEG) MG/DL Urine Blood NEG (NEG) Urine Nitrite NEG (NEG) Ur Leukocyte Esterase NEG (NEG) Urine RBC 0 (0) /HPF Urine WBC 0-2 (0-4) /HPF Ur Squamous Epith Cells TRACE /LPF Amorphous Sediment 1+ /LPF Urine Bacteria NONE /LPF Imaging Data CT scan - abdomen: Radiologist's impression: ss formation.? ABDOMINAL WALL: No significant hernia is appreciated.? LYMPH NODES: Normal. VASCULAR: Unremarkable. PELVIC VISCERA: Probable small enhancing uterine fibroid measuring 1.4 cm. The uterus and adnexa are otherwise unremarkable.? OSSEOUS STRUCTURES: Unremarkable.? CT/CT abdomen pelvis w con IMPRESSION: 1. No bowel wall thickening or inflammatory change. No small or large bowel obstruction. Unremarkable appendix. ? 2. No intra-abdominal mass, lymphadenopathy, or ascites. ? 3. No hydronephrosis or nephrolithiasis. ? 4. Probable small uterine fibroid measuring 1.4 cm.? ? Fleischner guidelines were followed. Dictated By: ANGELITO CUELLO MD Signed By: <Electronically signed by ANGELITO CUELLO MD in OV> 09/05/21 1203 Discharge Plan Discharge Clinical Impression: Abdominal pain Patient Disposition: Home, Self-Care Instructions: Abdominal Pain (ED) Additional Instructions: Follow-up with your primary care physician, stay on liquid diet 24-24h Prescriptions: No Action polyethylene glycol 3350 [Miralax] 17 gram/dose powder 17 g PO DAILY 30 Days Qty: 510 3RF (DME) FreeStyle Sandra 14 Day Sensor Kit See Rx Instructions .MEDSUPPLY Qty: 2 11RF Rx Instructions: every 14 days metoclopramide HCl 5 mg tablet 5 mg PO DAILY 90 Days Qty: 90 3RF (DME) FreeStyle Precision [place]ar[place] Strips Strip See Rx Instructions .MEDSUPPLY Qty: 25 6RF Rx Instructions: once a day for calibration cholecalciferol (vitamin D3) [Vitamin D3] 25 mcg (1,000 unit) tablet 25 mcg PO DAILY 90 Days Qty: 90 3RF (DME) FreeStyle Lite Strips Strip See Rx Instructions .ROUTE .MEDSUPPLY Qty: 150 11RF Rx Instructions: As directed four times a day (DME) blood-glucose meter [FreeStyle Lite Meter] Kit See Rx Instructions .ROUTE .MEDSUPPLY Qty: 1 0RF Rx Instructions: 4x/day (DME) lancets [FreeStyle Lancets] 28 gauge misc See Rx Instructions .ROUTE .MEDSUPPLY Qty: 200 11RF Rx Instructions: 4 times a day insulin lispro [Humalog KwikPen Insulin] 100 unit/mL insulin pen 3 - 6 unit subcut TID Qty: 15 3RF Rx Instructions: Use 3 units 3 times a day before meals. For blood glucose over 200 use 4 units, for blood glucose over 250 use 5 units, for blood glucose over 300 use 6 units. (DME) pen needle, diabetic [BD Sondra 2nd Gen Pen Needle] 32 gauge x 5/32 needle See Rx Instructions .MEDSUPPLY Qty: 150 11RF Rx Instructions: four times a day albuterol sulfate [ProAir HFA] 90 mcg/actuation HFA aerosol inhaler 2 puff inhalation Q4-6H PRN (Reason: shortness of breath or wheezing) 30 Days 0RF Linzess 290 mcg capsule 290 mcg PO QAM Qty: 30 4RF montelukast 10 mg tablet 10 mg PO DAILY Qty: 90 3RF (DME) FreeStyle Sandra 14 Day [place] Misc See Rx Instructions .ROUTE .MEDSUPPLY Qty: 1 0RF Rx Instructions: As directed every 2 weeks hydrochlorothiazide 12.5 mg tablet 12.5 mg PO QAM Qty: 90 2RF atorvastatin 20 mg tablet 20 mg PO DAILY 90 Days Qty: 90 1RF (DME) toilet seat elevator See Rx Instructions .Route .MEDSUPPLY Qty: 1 0RF Rx Instructions: As directed (DME) Shower Chair Misc See Rx Instructions .Route Qty: 1 0RF Rx Instructions: As directed naproxen 500 mg tablet 500 mg PO BID PRN (Reason: for pain) Qty: 60 3RF ondansetron 4 mg tablet,disintegrating 4 mg PO Q8H PRN (Reason: nausea and vomiting) 7 Days Qty: 21 0RF albuterol sulfate 2.5 mg /3 mL (0.083 %) solution for nebulization 2.5 mg inhalation Q4-6H PRN (Reason: bronchospasm) Qty: 75 0RF flu vacc [id number] 6mos up(PF) 60 mcg (15 mcg x 4)/0.5 mL syringe 0.5 ml IM ONCE Qty: 0.5 0RF zolpidem 5 mg tablet 5 mg PO BEDTIME PRN0RF lorazepam 0.5 mg tablet 0.5 mg PO DAILY PRN0RF Zyrtec 10 mg capsule 10 mg PO DAILY PRN (Reason: allergy symptoms) Qty: 30 0RF Lantus Solostar U-100 Insulin 100 unit/mL (3 mL) insulin pen 32 unit subcut DAILY 30 Days Qty: 9.6 6RF sertraline 100 mg tablet 100 mg PO DAILY 0RF canagliflozin 100 mg tablet 100 mg PO DAILY 30 Days Qty: 30 6RF pioglitazone 30 mg tablet 30 mg PO DAILY 0RF hydrocortisone-acetic acid 1-2 % drops 4 drp otic (ears) QID 7 Days Qty: 10 0RF terbinafine HCl [Athlete's Foot (terbinafine)] 1 % cream 1 appl topical BID Qty: 15 3RF Rx Instructions: use for 10 days (DME) lancets 28 gauge misc See Rx Instructions lancet topical TID Qty: 100 0RF Rx Instructions: As directed terconazole 0.8 % cream 1 appful vaginal BEDTIME 3 Days Qty: 20 0RF clotrimazole-betamethasone 1-0.05 % cream 1 appl topical BID 5 Days Qty: 45 0RF cyanocobalamin (vitamin B-12) 500 mcg tablet,disintegrating 500 mcg sublingual DAILY 0RF pantoprazole 40 mg tablet,delayed release (DR/EC) 40 mg PO DAILY Qty: 30 2RF Rx Instructions: take one tablet half an hour before breakfast Benefiber Clear SF (dextrin) 3 gram/3.5 gram powder in packet 1 packet PO DAILY Qty: 28 5RF Rx Instructions: mix into at least 4 oz water or juice before administering Referrals: Norma Lopes MD [Primary Care Provider] - 2 days Interventions: ED Discharge Assessment Last Done: 09/05/21 13:52 Discharge Date/Time: 09/05/21 14:17
[2021-09-05 09:56] LABS: Glucose, Whole Blood 147 mg/dL (60-115)
[2021-09-05] MEDS: 0.9 % Sodium Chloride 1,000 ML 999 ML IVCONT (09:57)
[2021-09-05] MEDS: Morphine Sulfate 4 MG/ML CARTRIDGE IVPUSH (09:58)
[2021-09-05] MEDS: ondansetron HCL 4 MG/2 ML VIAL IVPUSH (09:58)
[2021-09-05 10:11] LABS: MANUAL DIFF FLAG NO
[2021-09-05 10:12] LABS: Basophils Percent Auto 0.6 % (0-2); Eosinophils Absolute Auto 0.1 X10*3/uL (0.0-0.4); Eosinophils Percent Auto 1.5 % (0-4); Hematocrit 46.2 % (37.0-47.0); Hemoglobin 14.8 g/dl (12.0-16.0); Imm Gran Abs Auto 0.02 X10*3/uL (0.00-0.03); Imm Gran Pct Auto 0.3 % (0.0-0.4); Lymphocytes Absolute Auto 2.1 X10*3/uL (1.2-4.9); Lymphocytes Percent Auto 33.4 % (20-40); Mean Corpuscular Hemoglobin 28.2 pg (27.0-33.0); Mean Corpuscular Volume 88.2 fL (80.0-98.0); Monocytes Absolute Auto 0.5 X10*3/uL (0.1-1.2); Monocytes Percent Auto 8.2 % (2-11); Neutrophils Absolute Auto 3.5 x10*3/uL (2.0-8.3); Platelet Count 170 X10*3/uL (160-400); Red Blood Count 5.24 X10*6/uL (4.20-5.50); Red Cell Distribution Width 12.6 % (11.0-16.0); White Blood Count 6.2 X10*3/uL (4.8-10.8)
[2021-09-05 10:27] LABS: Appearance Urine CLEAR; Color Urine YELLOW; Glucose Urine UA >=1000 MG/DL (NEG); Leukocyte Esterase Urine NEG (NEG); Nitrite Urine NEG (NEG); Specific Gravity - Urine 1.015 (1.005-1.025); Urine Blood NEG (NEG); Urine Ketones NEG (NEG); Urine Protein NEG (NEG-TRACE)
[2021-09-05 10:30] LABS: Alanine Aminotransferase 29 U/L (0-31); Albumin Level 4.2 g/dL (3.5-5.0); Alkaline Phosphatase 53 U/L (39-117); Anion Gap 12 (12-20); Aspartate Amino Transferase 28 U/L (5-31); Bilirubin Total 0.4 mg/dL (0.0-1.0); Blood Urea Nitrogen 14 mg/dL (9-16); Calcium 10.1 mg/dL (8.4-10.2); Carbon Dioxide 32 mmol/L (22-29); Chloride 101 mmol/L (96-108); Creatinine Clr Calc Pharmacy 70.8; Estimated Glomerular Filt Rate > 60; Glucose Random 160 mg/dL (60-115); Lipase 112 U/L (8-78); Potassium 4.1 mmol/L (3.3-5.1); Sodium 141 mmol/L (135-145); Total Protein 7.4 g/dL (6.5-8.0)
[2021-09-05 10:35] LABS: Amorphous Sediment Urine 1+ /LPF; Squamous Epithelial Cell Urine TRACE /LPF; WBC Urine 0-2 /HPF (0-4)
[2021-09-05 10:36] LABS: RBC Urine 0 /HPF (0)
[2021-09-05] MEDS: iohexoL 350 MG/ML 100 ML INFUS..BTL IV (11:35)
[2021-09-05 12:31] VITALS: BP 121/61; PULSE 68; RESP 14; O2SAT 98
== END 2021-09-05 14:17 | disposition home or self-care (01) ==
PROVIDERS: Emergency Provider Emergency Medicine; PCP Internal Medicine
DX: R10.32 Left lower quadrant pain (principal); R11.2 Nausea with vomiting, unspecified; Z79.899 Other long term (current) drug therapy
CPT/HCPCS: 36415; 74177; 80053; 81001; 82947; 83690; 85025; 96374; 96376; 99284; J2270; J2405; Q9967

== ENCOUNTER → 2021-09-07 13:36 | Outpatient (BNVA) | payer OTHER, SELFPAY | PROVIDERS: PCP Internal Medicine; Visit Provider Nurse Practitioner Gerontology | DX: E11.65 Type 2 diabetes mellitus with hyperglycemia (principal); E11.42 Type 2 diabetes mellitus with diabetic polyneuropathy; I10 Essential (primary) hypertension; E78.5 Hyperlipidemia, unspecified; Z88.0 Allergy status to penicillin; Z88.8 Allergy status to other drugs, medicaments and biological substances; Z79.4 Long term (current) use of insulin; Z79.899 Other long term (current) drug therapy | CPT/HCPCS: 82947; 99212 ==

== ENCOUNTER 2021-09-27 | Outpatient (REF) | payer OTHER, SELFPAY | END 2021-09-27 00:01 | LOC: CF | PROVIDERS: Visit Provider Obstetrics & Gynecology | DX: Z01.411 Encounter for gynecological examination (general) (routine) with abnormal findings (principal); R10.2 Pelvic and perineal pain; N63.25 Unspecified lump in the left breast, overlapping quadrants | CPT/HCPCS: 99212 ==

== ENCOUNTER 2021-09-27 11:33 | Outpatient (REF) | payer OTHER, SELFPAY ==
[2021-09-27 16:10] LABS: CT PCR NOT DETECTED (Not Detect.); NG PCR NOT DETECTED (Not Detect.)
== END 2021-09-27 11:34 | disposition home or self-care (01) ==
LOC: HO.LAB 11:33
PROVIDERS: Visit Provider Obstetrics & Gynecology
DX: Z11.3 Encounter for screening for infections with a predominantly sexual mode of transmission (principal); R10.2 Pelvic and perineal pain
CPT/HCPCS: 87491; 87591

== ENCOUNTER 2021-10-05 13:16 | Outpatient (REF) | payer OTHER, SELFPAY ==
--- NOTE | ~2021-10-05 | US_ITS ---
EXAMINATION: US PELVIS CLINICAL INFORMATION: Pelvic and perineal pain. Postmenopausal. COMPARISON: None TECHNIQUE: Ultrasound of the pelvis is performed using both transabdominal and transvaginal transducers along with Doppler. Transvaginal imaging is performed due to inadequate visualization transabdominally. FINDINGS: Uterus: The uterus is anteverted and measures 6.6 x 3.9 x 4.2 cm. The double wall endometrial is thickened and measures0.6 cm. The uterus is smooth in contour and has normal myometrial echogenicity. There is a hypoechoic lesion in the right body of the uterus close to the fundus measuring 1.7 x 1.4 x 2.1 cm suggestive of small fibroid.. Adnexa: Both ovaries are visualized. There is normal color flow to the adnexa. There is no ovarian torsion. There is no pelvic ascites or fluid collection. Right ovary measures 1.8 x 1.2 x 1.6 cm and volume 1.8 mL. Left ovary measures 2.1 x 1.3 x 1.0 cm and volume 1.4 mL. US/US pelvic and transvaginal IMPRESSION: Slightly thickened endometrium measuring 0.6 cm. The ovaries unremarkable. There is a small uterine fibroid visualized.
== END 2021-10-05 13:17 | disposition home or self-care (01) ==
LOC: HO.US 13:16
PROVIDERS: PCP Internal Medicine; Visit Provider Obstetrics & Gynecology
DX: R10.2 Pelvic and perineal pain (principal)
CPT/HCPCS: 76830; 76856

== ENCOUNTER 2021-10-07 08:11 | Outpatient (REF) | payer OTHER, SELFPAY ==
--- NOTE | ~2021-10-07 | MM_ITS ---
EXAMINATION: MM DIAGNOSTIC DIGITAL BREAST TOMOSYNTHESIS, BILATERAL US DIAGNOSTIC ULTRASOUND BREAST, LEFT CLINICAL INFORMATION: Clinical exam notes small palpable lesion posterior medial left breast, patient believes this to be a chronic finding without change. Also follow-up probable benign grouped calcifications posterior upper outer left breast and posterior medial left breast. Due for yearly. The lifetime risk of breast cancer based on the Tyrer-Cuzick Model is 12%. COMPARISON: Mammography: 09/24/2020, 03/27/2020, 09/20/2019, 09/18/2019 (BI-RADS 0), 09/05/2018; targeted left breast ultrasound 09/05/2018 and 11/06/2017. TECHNIQUE: Digital breast tomosynthesis is performed in both the craniocaudal and mediolateral oblique views along with computer-aided detection (CAD). Synthesized 2D images are generated from the tomosynthesis. Additional views are obtained: Exaggerated left CC, magnification left CC x2, magnification left ML x2. Ultrasound left breast is targeted to the area of recent clinical palpable concern posterior medial left breast. Grayscale imaging and color Doppler are performed without and with harmonics. FINDINGS: There are scattered areas of fibroglandular density (ACR BI-RADS breast composition Category b). There is fine fibronodular parenchymal pattern. There is no interval mass or developing density or architectural abnormality. The axilla and skin contours are unremarkable. Again, there are scattered bilateral vascular and isolated and grouped relatively coarse calcifications. The left breast calcifications for follow-up posterior upper outer quadrant and posterior 9:00 position are both benign-appearing, coarser when compared with prior diagnostic exams, and with circumferential arrangement of the calcifications each on 2 views suggesting fibroadenomatous changes. Calcifications are now considered to be benign. Ultrasound left breast for palpable concern demonstrates a chronic intradermal lesion 9:00 position approximately 10 cm from nipple measuring approximately 0.8 x 0.3 x 0.6 cm. There is no surrounding hyperemia or internal color flow. There is no subdermal extension. The lesion is also demonstrated on prior ultrasounds, previously measuring 0.9 x 0.3 x 0.7 cm on ultrasound 11/16/2017. Results are discussed with the patient at time of visit, using an automotive technician. MM/MM tomosynthesis diagnostic BI IMPRESSION: Left: -Left breast calcifications for follow-up posterior upper outer and posterior medial are coarser and circumferentially arranged suggesting fibroadenomatous changes. There are now considered to be benign. -Palpable nodule posterior medial left breast corresponds to a chronic intradermal sebaceous cyst similar in size to prior ultrasound 2018. Right: -No mammographic evidence of malignancy. ASSESSMENT: BI-RADS 2: Benign RECOMMENDATION: Routine annual mammography screening. This patient's information was entered into a reminder system with a target due date for their next mammogram.
== END 2021-10-07 08:12 | disposition home or self-care (01) ==
LOC: HO.MAMMO 08:11
PROVIDERS: Visit Provider Internal Medicine
DX: N63.25 Unspecified lump in the left breast, overlapping quadrants (principal)
CPT/HCPCS: 76642; 77062; 77066

== ENCOUNTER → 2021-10-21 07:59 | Outpatient (BNVA) | payer OTHER, SELFPAY | PROVIDERS: PCP Internal Medicine; Visit Provider Obstetrics & Gynecology | DX: N63.0 Unspecified lump in unspecified breast (principal); R10.2 Pelvic and perineal pain | CPT/HCPCS: 99212 ==

== ENCOUNTER → 2021-10-29 09:57 | Outpatient (BNVA) | payer OTHER, SELFPAY | PROVIDERS: PCP Internal Medicine; Referring Provider Obstetrics & Gynecology; Visit Provider Surgery | DX: N63.25 Unspecified lump in the left breast, overlapping quadrants (principal); Z80.3 Family history of malignant neoplasm of breast | CPT/HCPCS: 99202 ==

== ENCOUNTER 2021-12-02 07:34 | Outpatient (REF) | payer OTHER, SELFPAY ==
[2021-12-02 08:27] LABS: Alanine Aminotransferase 24 U/L (0-31); Albumin Level 4.1 g/dL (3.5-5.0); Alkaline Phosphatase 54 U/L (39-117); Anion Gap 12 (12-20); Aspartate Amino Transferase 17 U/L (5-31); Bilirubin Total 0.6 mg/dL (0.0-1.0); Blood Urea Nitrogen 21 mg/dL (9-16); Calcium 9.7 mg/dL (8.4-10.2); Carbon Dioxide 28 mmol/L (22-29); Chloride 103 mmol/L (96-108); Cholesterol 151 mg/dL; Estimated Glomerular Filt Rate > 60; Glucose Fasting 157 mg/dL (60-99); HDL Cholesterol 41 mg/dL; LDL Cholesterol Calculated 86 mg/dl; Potassium 3.8 mmol/L (3.3-5.1); Sodium 139 mmol/L (135-145); Total Protein 7.2 g/dL (6.5-8.0); Triglycerides 121 mg/dL
[2021-12-02 08:27] LABS: Creatinine Urine 140.06 mg/dL; Microalbum/Creatinine Ratio Ur 12.1 ug/mg cr
[2021-12-02 08:47] LABS: Vitamin D 25-OH Total 36.1 ng/mL (>30)
[2021-12-02 09:01] LABS: Vitamin B12 241 pg/mL (200-900)
[2021-12-03 08:12] LABS: LDL Cholesterol Direct 89 mg/dL (<100)
== END 2021-12-02 07:35 | disposition home or self-care (01) ==
LOC: HO.LAB 07:34
PROVIDERS: PCP Internal Medicine; Visit Provider Nurse Practitioner Gerontology
DX: E11.42 Type 2 diabetes mellitus with diabetic polyneuropathy (principal); E53.8 Deficiency of other specified B group vitamins; E55.9 Vitamin D deficiency, unspecified
CPT/HCPCS: 36415; 80053; 80061; 82043; 82306; 82607; 83721

== ENCOUNTER 2021-12-22 10:01 | Outpatient (REF) | payer OTHER, SELFPAY ==
[2021-12-22 11:14] LABS: Influenza A PCR NEGATIVE (Negative); Influenza B PCR NEGATIVE (Negative); Resp Syncy Virus RNA Qual PCR NEGATIVE (Negative); SARS COV2 PCR INHOUSE NEGATIVE (Negative)
== END 2021-12-22 10:02 | disposition home or self-care (01) ==
LOC: HO.LAB 10:01
PROVIDERS: Nurse Practitioner Family; Visit Provider Internal Medicine
DX: Z20.822 Contact with and (suspected) exposure to COVID-19 (principal)
CPT/HCPCS: 0241U

== ENCOUNTER 2021-12-22 18:41 | Outpatient (REF) | payer OTHER, SELFPAY | END 2021-12-22 18:42 | disposition home or self-care (01) | LOC: HO.LNP 18:41 | PROVIDERS: Visit Provider Nurse Practitioner Family | DX: R82.998 Other abnormal findings in urine (principal) | CPT/HCPCS: 87086 ==

== ENCOUNTER → 2022-01-04 11:12 | Outpatient (BNVA) | payer OTHER, SELFPAY | PROVIDERS: PCP Internal Medicine; Visit Provider Surgery | DX: Z71.2 Person consulting for explanation of examination or test findings (principal); Z80.3 Family history of malignant neoplasm of breast | CPT/HCPCS: 99212 ==

== ENCOUNTER 2022-03-18 08:06 | Outpatient (REF) | payer OTHER, SELFPAY ==
--- NOTE | ~2022-03-18 | XR_ITS ---
EXAMINATION: XR ABDOMEN KUB CLINICAL INDICATION: Microscopic hematuria. COMPARISON: CT abdomen and pelvis dated 09/05/2021; abdominal ultrasound dated 09/24/2020; KUB dated 08/13/2019. TECHNIQUE: 2 AP views of the abdomen and pelvis are submitted. FINDINGS: The bowel gas pattern is normal with no evidence of ileus or obstruction. No unusual soft tissue calcifications are noted. In particular, no renal calculi are noted, with imaging limited by overlapping bowel gas. The bones are unremarkable. There are right upper quadrant surgical clips. XR/XR KUB IMPRESSION: Unremarkable examination.
--- NOTE | ~2022-03-18 | XR_ITS ---
EXAMINATION: XR HIP, RIGHT CLINICAL INFORMATION: Pain. COMPARISON: Prior radiographs, most recently 11/23/2017. TECHNIQUE: AP and frog-leg lateral views of the right hip. FINDINGS: Bones and soft tissues are normal. No fracture. Alignment is anatomic. Hip joint space is maintained. XR/XR hip RT min 2V IMPRESSION: Normal right hip.
[2022-03-18 09:09] LABS: Alanine Aminotransferase 25 U/L (0-31); Alkaline Phosphatase 51 U/L (39-117); Anion Gap 15 (12-20); Aspartate Amino Transferase 21 U/L (5-31); Bilirubin Total 0.6 mg/dL (0.0-1.0); Blood Urea Nitrogen 19 mg/dL (9-16); Calcium 9.9 mg/dL (8.4-10.2); Carbon Dioxide 28 mmol/L (22-29); Chloride 103 mmol/L (96-108); Cholesterol 144 mg/dL; Estimated Glomerular Filt Rate > 60; Glucose Fasting 133 mg/dL (60-99); HDL Cholesterol 38 mg/dL; LDL Cholesterol Calculated 71 mg/dl; Potassium 4.1 mmol/L (3.3-5.1); Sodium 142 mmol/L (135-145); Total Protein 6.9 g/dL (6.5-8.0); Triglycerides 176 mg/dL
[2022-03-18 09:20] LABS: Appearance Urine Clear; Color Urine Yellow; Glucose Urine UA >=1000 mg/dL (Negative); Leukocyte Esterase Urine Negative (Negative); Nitrite Urine Negative (Negative); Specific Gravity - Urine >= 1.030 (1.005-1.025); UMIC TRIGGER UACC YES; Urine Blood Negative (Negative); Urine Ketones Negative (Negative); Urine Protein Negative (Neg-Trace)
[2022-03-18 09:33] LABS: Bacteria Urine None Seen (None Seen); Hyaline Casts Urine 0-2 /LPF (0-2); RBC Urine 0-2 /HPF (0-2); Squamous Epithelial Cell Urine 0-2 /HPF (0-2); WBC Urine 0-5 /HPF (0-5)
[2022-03-18 09:33] LABS: Vitamin D 25-OH Total 34.8 ng/mL (>30)
[2022-03-18 09:38] LABS: Creatinine Urine 100.84 mg/dL; Microalbum/Creatinine Ratio Ur 4.9 ug/mg cr
[2022-03-18 10:03] LABS: Folate > 20.0 ng/mL (> or = 4.0); Vitamin B12 229 pg/mL (200-900)
== END 2022-03-18 08:07 | disposition home or self-care (01) ==
LOC: HO.LAB 08:06
PROVIDERS: PCP Internal Medicine; Visit Provider Internal Medicine
DX: E55.9 Vitamin D deficiency, unspecified (principal); E11.42 Type 2 diabetes mellitus with diabetic polyneuropathy; E53.8 Deficiency of other specified B group vitamins; E78.5 Hyperlipidemia, unspecified; R31.29 Other microscopic hematuria; M25.551 Pain in right hip; R30.0 Dysuria
CPT/HCPCS: 36415; 73502; 74018; 80053; 80061; 81001; 82043; 82306; 82607; 82746

== ENCOUNTER 2022-04-07 08:48 | Emergency (ER) | payer OTHER, SELFPAY ==
--- NOTE | ~2022-04-07 | XR_ITS ---
EXAMINATION: XR CHEST CLINICAL INFORMATION: Bradycardia COMPARISON: CXR from 06/27/2019 TECHNIQUE: Frontal view of the chest was obtained. FINDINGS: Lungs are well-inflated and clear. Trachea is midline in position. No interstitial disease, consolidation or mass. No pleural effusion or pneumothorax. Cardiac silhouette and pulmonary vessels are normal in size. The mediastinum and k[place] have normal contour. No acute skeletal findings. Multilevel osteophyte formation of the spine. XR/XR chest 1V IMPRESSION: Lungs and cardiac silhouette have a normal appearance. No acute cardiopulmonary abnormality compared to 06/27/2019.
[2022-04-07 09:09] VITALS: BP 142/58; PULSE 74; RESP 17; TEMP 36.6; O2SAT 98; BMI 26.9
--- NOTE | 2022-04-07 09:12 | ECG_ITS ---
Test Reason : chest pain Blood Pressure : / mmHG Vent. Rate : 067 BPM Atrial Rate : 067 BPM P-R Int : 160 ms QRS Dur : 082 ms QT Int : 410 ms P-R-T Axes : 066 061 052 degrees QTc Int : 433 ms Normal sinus rhythm Normal ECG When compared with ECG of 27-JUL-2021 11:18, No significant change was found Referred By: Generic ED Physician Electronically Signed By:MERRILL KHOURY
[2022-04-07 09:34] LABS: MANUAL DIFF FLAG NO
--- NOTE | 2022-04-07 09:34 | ED.CHESTPAIN ---
HPI - Chest Pain General Chief Complaint: Chest Pain Stated Complaint: Chest Pain Time Seen by Provider: 04/07/22 09:33 Source: patient Mode of arrival: ambulatory Limitations: language barrier (Ukrainian speaking only, fire observer used) History of Present Illness HPI narrative: 56-year-old female who presents emergency department for evaluation of palpitations and chest pain x8 days. Patient also complains of dysuria and urinary frequency. The patient states that over the past 8 days she has been feeling her heart rapidly. She states that the sensation is intermittent but can last hours. She states that when she gets these palpitations he also gets a burning sensation in her chest. She points to her mid sternum when asked to localize the pain. She states the burning sensation is 6/10 at its worst. She states that when she woke up this morning she had the palpitations/rapid heart rate and burning in her chest. She states that is been constant for the past 4 hours. She denied any other associated symptoms such as neck, jaw, arm or back pain, lightheadedness, dizziness, diaphoresis. She states that she does have a burning sensation when she urinates and also has urinary frequency but she attributes this to her diabetes. She also complained of numbness in her legs but again she contributes is the diabetes. The patient denied fever, chills, rhinorrhea, nausea, vomiting, diarrhea. She states that she has had a sore throat and cough x2 days. MD complaint: chest pain Onset (ago): day(s) (8) Timing of current episode: episodic Prior episodes: No Onset: during rest and during exertion Pain location: substernal Pain radiation: none Severity: moderate Pain scale (0-10): 6 Quality: burning Relieving factors: nothing Exacerbating factors: nothing Treatment prior to arrival: none Risk Factors Coronary artery disease risk factors: diabetes Related Data Home Medications Medication Instructions Recorded Confirmed lorazepam 0.5 mg tablet 0.5 mg PO DAILY PRN 04/16/20 03/17/22 zolpidem 5 mg tablet 5 mg PO BEDTIME PRN 04/16/20 03/17/22 sertraline 100 mg tablet 100 mg PO DAILY 06/17/20 03/17/22 cyanocobalamin (vitamin B-12) 500 500 mcg sublingual DAILY 02/19/21 03/17/22 mcg disintegrating tablet,sublingual Previous Rx's Medication Instructions Recorded cetirizine 10 mg capsule (Zyrtec) 10 mg PO DAILY PRN allergy 06/24/20 symptoms #30 caps polyethylene glycol 3350 17 17 g PO DAILY 30 days #510 grams 09/29/20 gram/dose oral powder (Miralax) clotrimazole-betamethasone 1 1 appl topical BID 5 days #45 grams 11/25/20 %-0.05 % topical cream FreeStyle Precision Margarito Strips #25 ea 01/18/21 (blood sugar diagnostic) lancets 28 gauge (FreeStyle #200 ea 04/14/21 Lancets) pen needle, diabetic 32 gauge x #150 ea 04/15/21 (BD Sondra 2nd Gen Pen Needle) ProAir HFA 90 mcg/actuation 2 puff inhalation Q4-6H PRN 04/22/21 aerosol inhaler (albuterol sulfate) shortness of breath or wheezing 30 days linaclotide 290 mcg capsule 290 mcg PO QAM #30 caps 05/25/21 (Linzess) albuterol sulfate 2.5 mg/3 mL 2.5 mg (3 mL) inhalation Q4-6H PRN 07/05/21 (0.083 %) solution for nebulization bronchospasm #75 mL hydrochlorothiazide 12.5 mg tablet 12.5 mg PO QAM #90 tabs 07/07/21 Shower Chair #1 ea 08/02/21 toilet seat elevator #1 ea 08/02/21 blood sugar diagnostic (FreeStyle #150 ea 09/07/21 Lite Strips) blood-glucose meter (FreeStyle #1 ea 09/07/21 Lite Meter kit) flash glucose scanning reader #1 ea 09/07/21 (FreeStyle Sandra 14 Day Sophia) lancets 28 gauge #100 ea 09/07/21 naproxen 500 mg tablet 500 mg PO BID PRN for pain #60 tabs 12/07/21 azithromycin 250 mg tablet See Rx Instructions PO .COMPLEX #6 12/22/21 tabs prednisone 20 mg tablet 40 mg PO DAILY 5 days #10 tabs 12/22/21 atorvastatin 20 mg tablet 20 mg PO DAILY #90 tabs 12/27/21 metoclopramide HCl 5 mg tablet 5 mg PO DAILY 90 days #90 tabs 01/03/22 phenazopyridine 200 mg tablet 200 mg PO TID 3 days #9 tabs 01/12/22 (Pyridium) albuterol sulfate 90 mcg/actuation 2 puff inhalation Q4-6H PRN 01/13/22 aerosol inhaler (ProAir HFA) shortness of breath or wheezing #8.5 grams flash glucose sensor (FreeStyle #2 ea 02/09/22 Sandra 14 Day Sensor kit) canagliflozin 100 mg tablet 100 mg PO DAILY 30 days #30 tabs 02/20/22 cholecalciferol (vitamin D3) 25 25 mcg PO DAILY 90 days #90 tabs 02/23/22 mcg (1,000 unit) tablet (Vitamin D3) insulin lispro 100 unit/mL 4 - 6 unit (0.04 - 0.06 mL) subcut 02/23/22 subcutaneous pen (Humalog KwikPen TID #15 mL (U-100) Insulin) pioglitazone 30 mg tablet 30 mg PO DAILY 90 days #90 tabs 02/23/22 fluticasone propionate 50 1 spray intranasal DAILY #100 mL 03/20/22 mcg/actuation nasal spray,suspension (Flonase Allergy Relief) montelukast 10 mg tablet 10 mg PO DAILY #90 tabs 03/22/22 Lantus Solostar U-100 Insulin 100 25 unit (0.25 mL) subcut DAILY 30 03/23/22 unit/mL (3 mL) subcutaneous pen days #7.5 mL (insulin glargine) pantoprazole 40 mg tablet,delayed 40 mg PO DAILY #30 tabs 04/04/22 release Allergies Allergy/AdvReac Type Severity Reaction Status Date / Time Penicillins Allergy Mild RASH/DYSPNE Verified 03/17/22 15:52 A metformin AdvReac Intermediate stomach Verified 03/17/22 15:52 upset Review of Systems Review of Systems: Yes all other systems are reviewed and are negative [facility] Past Medical History [facility] Narrative: Social history: She denies tobacco, alcohol and drug use Medical History Arthritis B12 deficiency Depression with anxiety Diabetes DM2 (diabetes mellitus, type 2) Dyslipidemia Ear discomfort Ear pain Edema Essential hypertension Fecal incontinence GERD (gastroesophageal reflux disease) Hearing loss Hearing loss Insomnia penitentiary (current) use of insulin Moderate asthma Moderate recurrent major depression Overweight Palpitations Pernicious anemia Polyarthralgia Tubular adenoma Type 2 diabetes mellitus with diabetic polyneuropathy Umbilical hernia Surgical History History of carpal tunnel release History of cholecystectomy History of endometrial ablation History of foot surgery History of surgery on arm History of tubal ligation History of umbilical hernia repair Family History Family History Mother Breast cancer Paternal Grandmother Breast cancer Brother Colon cancer Family/Other FH: mental illness Mental health disorder Social History Social History Household Members: Children Housing: Apartment Alcohol intake: never Patient Tobacco Use Status: Never used Tobacco e-Cigarette/Vaping Use: Never Used Second Hand Smoke Exposure: No Advance Directives: No service: No Current occupational status: disabled Cognitive needs: No Hearing needs: No Vision needs: No Physical Exam Vital Signs: Vital Signs: Last Vital Signs Temp 98 F 04/07/22 09:09 Pulse 74 04/07/22 09:09 Resp 17 04/07/22 09:09 BP 142/58 H 04/07/22 09:09 Pulse Ox 98 04/07/22 09:09 BMI result Body Mass Index 26.9 Const: General: cooperative and no acute distress Orientation/consciousness: oriented to person and oriented to place Limitations: no limitations HEENT: Head: Yes normal to inspection, Yes normocephalic and Yes atraumatic Ears: external ears normal General nose exam: Normal external nose present Face and sinus: Yes normal facial exam Mouth: Normal oral and palatal mucosa present Throat: Yes posterior oropharynx normal Eyes: General: appearance normal, both eyes and all related structures Pupils: Equal, round and reactive pupils present Neck: Neck: Yes normal visual inspection, Yes no lymphadenopathy, Yes trachea midline and Yes supple Chest: Chest palpation & inspection: normal inspection of the chest and normal palpation of entire chest wall Resp: Effort & Inspection: normal respiratory effort and able to speak in complete sentences Auscultation: clear to auscultation bilaterally Cardio: Rate: regular rate Rhythm: regular rhythm Heart sounds: S1 normal heart sound present, S2 normal heart sound present and no murmurs GI: Inspection: Yes normal to inspection Palpation (GI): Soft to palpation, nontender and no guarding Auscultation: normal bowel sounds : General: Yes no CVA tenderness Back/Spine/Pelvis: Back: no CVA tenderness Skin: General skin exam: no rashes or lesions noted Neuro: General: oriented to person and oriented to place Cranial nerves: Yes CN's II-XII intact bilaterally and Yes Equal, round and reactive pupils present Cognition (Neuro): normal cognition Motor exam (neuro): 5/5 motor strength present throughout Extrem: General: Yes normal to inspection Psych: Appearance: grossly normal Speech and movement: Normal speech and movement present Affect: normal affect Attitude: cooperative Thought process: Normal thought process present Thought content: Normal thought content present Course Course Course Narrative: 56-year-old female who presents emergency department for evaluation of 8 days of intermittent palpitations associated with a burning sensation in her mid sternal area, dysuria with urinary frequency. Vital signs were unremarkable . The patient's physical examination was unremarkable. Twelve EKG was unremarkable. Patient's laboratory evaluation included a CBC, CMP BNP and troponin. The patient's tests were normal and her troponin was below detectable limits. The patient's urinalysis was negative as well. At this time I think that the patient's symptoms are more consistent with her anxiety disorder and I did discuss this with her. The patient was given Ativan 1 mg orally. She does have Ativan to take at home. MDM - Chest Pain Medical Records Data Attestation: I reviewed the patient's medical records. Lab Data Attestation: I reviewed the patient's lab results. Result diagrams: 04/07/22 09:30 04/07/22 09:30 Labs: Lab Results 04/07/22 04/07/22 04/07/22 Range/Units 09:30 09:30 09:30 WBC 5.9 (4.8-10.8) X10*3/uL RBC 5.18 (4.20-5.50) X10*6/uL Hgb 14.5 (12.0-16.0) g/dl Hct 45.4 (37.0-47.0) % MCV 87.6 (80.0-98.0) fL MCH 28.0 (27.0-33.0) pg MCHC 31.9 (31.0-35.0) g/dl RDW 12.7 (11.0-16.0) % Plt Count 166 (160-400) X10*3/uL MPV 11.1 (9.4-12.3) fL Immature Gran % (Auto) 0.3 (0.0-0.4) % Neut % (Auto) 61.5 (45-73) % Lymph % (Auto) 28.4 (20-40) % [place] % (Auto) 8.0 (2-11) % Eos % (Auto) 1.0 (0-4) % Baso % (Auto) 0.8 (0-2) % Lymph # (Auto) 1.7 (1.2-4.9) X10*3/uL [place] # (Auto) 0.5 (0.1-1.2) X10*3/uL Eos # (Auto) 0.1 (0.0-0.4) X10*3/uL Baso # (Auto) 0.1 (0.0-0.2) X10*3/uL Abs Immat Gran (auto) 0.02 (0.00-0.03) X10*3/uL Absolute Neuts (auto) 3.6 (2.0-8.3) x10*3/uL Absolute Nucleated RBC 0.000 (0.0-0.012) X10*3/uL Nucleated RBC % (auto) 0.0 (0.0-0.2) /100WBC Sodium 142 (135-145) mmol/L Potassium 4.2 (3.3-5.1) mmol/L Chloride 106 (96-108) mmol/L Carbon Dioxide 27 (22-29) mmol/L Anion Gap 13 (12-20) BUN 18 H (9-16) mg/dL Creatinine 0.75 (0.5-1.4) mg/dL Estim Creat Clear Calc 74.0 Estimated GFR > 60 Random Glucose 168 H (60-115) mg/dL Calcium 9.4 (8.4-10.2) mg/dL Troponin I High Sens (<3.5-17.0) ng/L B-Natriuretic Peptide 55 (<100) pg/mL Urine Color Urine Appearance Urine pH (5.0-9.0) Ur Specific [place] (1.005-1.025) Urine Protein (Neg-Trace) mg/dL Urine Glucose (UA) (Negative) mg/dL Urine Ketones (Negative) mg/dL Urine Blood (Negative) Urine Nitrite (Negative) Ur Leukocyte Esterase (Negative) Urine RBC (0-2) /HPF Urine WBC (0-5) /HPF Ur Squamous Epith Cells (0-2) /HPF Urine Bacteria (None Seen) Hyaline Casts (0-2) /LPF 04/07/22 04/07/22 Range/Units 09:30 09:30 WBC (4.8-10.8) X10*3/uL RBC (4.20-5.50) X10*6/uL Hgb (12.0-16.0) g/dl Hct (37.0-47.0) % MCV (80.0-98.0) fL MCH (27.0-33.0) pg MCHC (31.0-35.0) g/dl RDW (11.0-16.0) % Plt Count (160-400) X10*3/uL MPV (9.4-12.3) fL Immature Gran % (Auto) (0.0-0.4) % Neut % (Auto) (45-73) % Lymph % (Auto) (20-40) % [place] % (Auto) (2-11) % Eos % (Auto) (0-4) % Baso % (Auto) (0-2) % Lymph # (Auto) (1.2-4.9) X10*3/uL [place] # (Auto) (0.1-1.2) X10*3/uL Eos # (Auto) (0.0-0.4) X10*3/uL Baso # (Auto) (0.0-0.2) X10*3/uL Abs Immat Gran (auto) (0.00-0.03) X10*3/uL Absolute Neuts (auto) (2.0-8.3) x10*3/uL Absolute Nucleated RBC (0.0-0.012) X10*3/uL Nucleated RBC % (auto) (0.0-0.2) /100WBC Sodium (135-145) mmol/L Potassium (3.3-5.1) mmol/L Chloride (96-108) mmol/L Carbon Dioxide (22-29) mmol/L Anion Gap (12-20) BUN (9-16) mg/dL Creatinine (0.5-1.4) mg/dL Estim Creat Clear Calc Estimated GFR Random Glucose (60-115) mg/dL Calcium (8.4-10.2) mg/dL Troponin I High Sens < 3.5 (<3.5-17.0) ng/L B-Natriuretic Peptide (<100) pg/mL Urine Color Yellow Urine Appearance Clear Urine pH 6.0 (5.0-9.0) Ur Specific [place] >= 1.030 H (1.005-1.025) Urine Protein Negative (Neg-Trace) mg/dL Urine Glucose (UA) >=1000 H (Negative) mg/dL Urine Ketones Negative (Negative) mg/dL Urine Blood Negative (Negative) Urine Nitrite Negative (Negative) Ur Leukocyte Esterase Negative (Negative) Urine RBC 0-2 (0-2) /HPF Urine WBC 0-5 (0-5) /HPF Ur Squamous Epith Cells 0-2 (0-2) /HPF Urine Bacteria None Seen (None Seen) Hyaline Casts 0-2 (0-2) /LPF ECG Data ECG #1: Interpretation: 0922: Normal sinus rhythm rate of 67, normal VT, QRS and QTC intervals, no ST segment elevation, no ST segment depression, no PACs, no PVCs, no T-wave abnormalities. Discharge Plan Discharge Clinical Impression: Palpitation, Chest pain, Anxiety Patient Disposition: Home, Self-Care Instructions: Heart Palpitations (ED) Additional Instructions: Your laboratory evaluation today was normal which is reassuring. Your EKG was unremarkable. Your urine did not reveal any evidence for urine infection. This time I believe that your chest pain and rapid heart rate/palpitations probably related to your anxiety. Continue to take your anti anxiety medications as prescribed by your providers. I did give 1 lorazepam 1 mg orally here in the emergency department. Follow-up with your doctor in 2 days. Please return to the emergency department if your symptoms get worse or if you develop any symptoms that are concerning to you. Prescriptions: No Action polyethylene glycol 3350 [Miralax] 17 gram/dose powder 17 g PO DAILY 30 Days Qty: 510 3RF (DME) FreeStyle Precision Margarito Strips Strip See Rx Instructions .MEDSUPPLY Qty: 25 6RF Rx Instructions: once a day for calibration (DME) lancets [FreeStyle Lancets] 28 gauge misc See Rx Instructions .ROUTE .MEDSUPPLY Qty: 200 11RF Rx Instructions: 4 times a day (DME) pen needle, diabetic [BD Sondra 2nd Gen Pen Needle] 32 gauge x 5/32 needle See Rx Instructions .MEDSUPPLY Qty: 150 11RF Rx Instructions: four times a day albuterol sulfate [ProAir HFA] 90 mcg/actuation HFA aerosol inhaler 2 puff inhalation Q4-6H PRN (Reason: shortness of breath or wheezing) 30 Days 0RF Linzess 290 mcg capsule 290 mcg PO QAM Qty: 30 4RF hydrochlorothiazide 12.5 mg tablet 12.5 mg PO QAM Qty: 90 2RF (DME) toilet seat elevator See Rx Instructions .Route .MEDSUPPLY Qty: 1 0RF Rx Instructions: As directed (DME) Shower Chair Misc See Rx Instructions .Route Qty: 1 0RF Rx Instructions: As directed naproxen 500 mg tablet 500 mg PO BID PRN (Reason: for pain) Qty: 60 3RF atorvastatin 20 mg tablet 20 mg PO DAILY Qty: 90 2RF metoclopramide HCl 5 mg tablet 5 mg PO DAILY 90 Days Qty: 90 3RF albuterol sulfate [ProAir HFA] 90 mcg/actuation HFA aerosol inhaler 2 puff inhalation Q4-6H PRN (Reason: shortness of breath or wheezing) Qty: 8.5 0RF (DME) FreeStyle Sandra 14 Day Sensor Kit See Rx Instructions .MEDSUPPLY Qty: 2 11RF Rx Instructions: every 14 days canagliflozin 100 mg tablet 100 mg PO DAILY 30 Days Qty: 30 6RF cholecalciferol (vitamin D3) [Vitamin D3] 25 mcg (1,000 unit) tablet 25 mcg PO DAILY 90 Days Qty: 90 3RF insulin lispro [Humalog KwikPen Insulin] 100 unit/mL insulin pen 4 - 6 unit subcut TID Qty: 15 4RF pioglitazone 30 mg tablet 30 mg PO DAILY 90 Days Qty: 90 1RF fluticasone propionate [Flonase Allergy Relief] 50 mcg/actuation spray,suspension 1 spray intranasal DAILY Qty: 100 0RF Rx Instructions: administer into each nostril montelukast 10 mg tablet 10 mg PO DAILY Qty: 90 3RF insulin glargine [Lantus Solostar U-100 Insulin] 100 unit/mL (3 mL) insulin pen 25 unit subcut DAILY 30 Days Qty: 7.5 6RF pantoprazole 40 mg tablet,delayed release (DR/EC) 40 mg PO DAILY Qty: 30 2RF Rx Instructions: take one tablet half an hour before breakfast albuterol sulfate 2.5 mg /3 mL (0.083 %) solution for nebulization 2.5 mg inhalation Q4-6H PRN (Reason: bronchospasm) Qty: 75 0RF flu vacc [id number] 6mos up(PF) 60 mcg (15 mcg x 4)/0.5 mL syringe 0.5 ml IM ONCE Qty: 0.5 0RF zolpidem 5 mg tablet 5 mg PO BEDTIME PRN lorazepam 0.5 mg tablet 0.5 mg PO DAILY PRN Zyrtec 10 mg capsule 10 mg PO DAILY PRN (Reason: allergy symptoms) Qty: 30 0RF sertraline 100 mg tablet 100 mg PO DAILY phenazopyridine [Pyridium] 200 mg tablet 200 mg PO TID 3 Days Qty: 9 0RF azithromycin 250 mg tablet See Rx Instructions PO .COMPLEX Qty: 6 0RF Rx Instructions: take 500 mg today (day 1), then 250 mg for 4 days (days 2-5) PO prednisone 20 mg tablet 40 mg PO DAILY 5 Days Qty: 10 0RF clotrimazole-betamethasone 1-0.05 % cream 1 appl topical BID 5 Days Qty: 45 0RF cyanocobalamin (vitamin B-12) 500 mcg tablet,disintegrating 500 mcg sublingual DAILY (DME) blood-glucose meter [FreeStyle Lite Meter] Kit See Rx Instructions .ROUTE .MEDSUPPLY Qty: 1 0RF Rx Instructions: 4x/day (DME) FreeStyle Lite Strips Strip See Rx Instructions .ROUTE .MEDSUPPLY Qty: 150 11RF Rx Instructions: As directed four times a day (DME) lancets 28 gauge misc See Rx Instructions topical TID Qty: 100 11RF Rx Instructions: As directed 4 x/day (DME) FreeStyle Sandra 14 Day Sophia Misc See Rx Instructions .ROUTE .MEDSUPPLY Qty: 1 11RF Rx Instructions: As directed every 2 weeks Print Language: Ukrainian
[2022-04-07 09:37] LABS: Basophils Absolute Auto 0.1 X10*3/uL (0.0-0.2); Basophils Percent Auto 0.8 % (0-2); Eosinophils Absolute Auto 0.1 X10*3/uL (0.0-0.4); Hematocrit 45.4 % (37.0-47.0); Hemoglobin 14.5 g/dl (12.0-16.0); Imm Gran Abs Auto 0.02 X10*3/uL (0.00-0.03); Imm Gran Pct Auto 0.3 % (0.0-0.4); Lymphocytes Absolute Auto 1.7 X10*3/uL (1.2-4.9); Lymphocytes Percent Auto 28.4 % (20-40); Mean Corpuscular HGB Conc 31.9 g/dl (31.0-35.0); Mean Corpuscular Volume 87.6 fL (80.0-98.0); Mean Platelet Volume 11.1 fL (9.4-12.3); Monocytes Absolute Auto 0.5 X10*3/uL (0.1-1.2); Neutrophils Absolute Auto 3.6 x10*3/uL (2.0-8.3); Neutrophils Percent Auto 61.5 % (45-73); Platelet Count 166 X10*3/uL (160-400); Red Blood Count 5.18 X10*6/uL (4.20-5.50); Red Cell Distribution Width 12.7 % (11.0-16.0); White Blood Count 5.9 X10*3/uL (4.8-10.8)
[2022-04-07 09:39] LABS: Appearance Urine Clear; Color Urine Yellow; Glucose Urine UA >=1000 mg/dL (Negative); Leukocyte Esterase Urine Negative (Negative); Nitrite Urine Negative (Negative); Specific Gravity - Urine >= 1.030 (1.005-1.025); UMIC TRIGGER UACC YES; Urine Blood Negative (Negative); Urine Ketones Negative (Negative); Urine Protein Negative (Neg-Trace)
[2022-04-07 09:42] LABS: Bacteria Urine None Seen (None Seen); Hyaline Casts Urine 0-2 /LPF (0-2); RBC Urine 0-2 /HPF (0-2); Squamous Epithelial Cell Urine 0-2 /HPF (0-2); WBC Urine 0-5 /HPF (0-5)
[2022-04-07 09:51] LABS: Anion Gap 13 (12-20); Blood Urea Nitrogen 18 mg/dL (9-16); Calcium 9.4 mg/dL (8.4-10.2); Carbon Dioxide 27 mmol/L (22-29); Chloride 106 mmol/L (96-108); Estimated Glomerular Filt Rate > 60; Glucose Random 168 mg/dL (60-115); Potassium 4.2 mmol/L (3.3-5.1); Sodium 142 mmol/L (135-145)
[2022-04-07 09:58] LABS: B Type Natriuretic Peptide 55 pg/mL (<100); Troponin-I High Sensitivity < 3.5 ng/L (<3.5-17.0)
--- NOTE | 2022-04-07 10:27 | PC.NURSE ---
sr on monitor, nad, skin wpd, awaiting md re eval, alert, speech clear, watching something on phone
[2022-04-07 11:06] VITALS: BP 114/64; PULSE 66; RESP 18; TEMP 36.8; O2SAT 97
[2022-04-07] MEDS: LORazepam 1 MG TABLET PO (11:20)
--- NOTE | 2022-04-07 11:21 | PC.NURSE ---
sr on monitor, medicated w ativan for reported anxiety, skin wpd, nad, has taken med before
== END 2022-04-07 11:21 | disposition home or self-care (01) ==
PROVIDERS: Emergency Provider Emergency Medicine Emergency Medical Services; PCP Internal Medicine
DX: R07.9 Chest pain, unspecified (principal); R00.2 Palpitations; F41.9 Anxiety disorder, unspecified; R30.0 Dysuria; J02.9 Acute pharyngitis, unspecified; E11.9 Type 2 diabetes mellitus without complications; I10 Essential (primary) hypertension; E78.5 Hyperlipidemia, unspecified; Z79.4 Long term (current) use of insulin
CPT/HCPCS: 36415; 71045; 80048; 81001; 83880; 84484; 85025; 93005; 99283; 99284

== ENCOUNTER 2022-05-30 07:47 | Emergency (ER) | payer OTHER, SELFPAY ==
[2022-05-30 08:06] VITALS: BP 116/56; PULSE 85; RESP 18; TEMP 36; O2SAT 97; BMI 27.6
--- NOTE | 2022-05-30 09:06 | ED_ITS ---
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 She states she woke up with pain and the back of her head on the left-sided radiates down into the neck and over to the chest wall over her clavicle. She reports it is tender to touch and is worse when she moves her head side to side. She denies any injury or falls. She denies any numbness or tingling down her arms. She has been taking naproxen with improvement in the pain but no complete resolution. She denies any headache or fever. MD complaint: neck pain and upper back pain Onset (ago): day(s) (2) Place: home Radiation: left lateral and occiput Severity: moderate Severity scale (1-10): 6 Quality: aching and spasming Duration: constant Relieving factors: medication OTC/prescribed Exacerbating factors: movement of neck Context: unknown Treatments prior to arrival: none Related Data Home Medications Medication Instructions Recorded Confirmed lorazepam 0.5 mg tablet 0.5 mg PO DAILY PRN 04/16/20 04/26/22 zolpidem 5 mg tablet 5 mg PO BEDTIME PRN 04/16/20 04/26/22 sertraline 100 mg tablet 100 mg PO DAILY 06/17/20 04/26/22 Previous Rx's Medication Instructions Recorded polyethylene glycol 3350 17 17 g PO DAILY 30 days #510 grams 09/29/20 gram/dose oral powder (Miralax) clotrimazole-betamethasone 1 1 appl topical BID 5 days #45 grams 11/25/20 %-0.05 % topical cream FreeStyle Precision Margarito Strips #25 ea 01/18/21 (blood sugar diagnostic) lancets 28 gauge (FreeStyle #200 ea 04/14/21 Lancets) pen needle, diabetic 32 gauge x #150 ea 10/14/21 5/32 (BD Sondra 2nd Gen Pen Needle) ProAir HFA 90 mcg/actuation 2 puff inhalation Q4-6H PRN 04/22/21 aerosol inhaler (albuterol sulfate) shortness of breath or wheezing 30 days linaclotide 290 mcg capsule 290 mcg PO QAM #30 caps 05/25/21 (Linzess) albuterol sulfate 2.5 mg/3 mL 2.5 mg (3 mL) inhalation Q4-6H PRN 07/05/21 (0.083 %) solution for nebulization bronchospasm #75 mL Shower Chair #1 ea 08/02/21 toilet seat elevator #1 ea 08/02/21 blood sugar diagnostic (FreeStyle #150 ea 09/07/21 Lite Strips) blood-glucose meter (FreeStyle #1 ea 09/07/21 Lite Meter kit) flash glucose scanning reader #1 ea 09/07/21 (FreeStyle Sandra 14 Day [place]) lancets 28 gauge #100 ea 09/07/21 naproxen 500 mg tablet 500 mg PO BID PRN for pain #60 tabs 12/07/21 prednisone 20 mg tablet 40 mg PO DAILY 5 days #10 tabs 12/22/21 phenazopyridine 200 mg tablet 200 mg PO TID 3 days #9 tabs 01/12/22 (Pyridium) flash glucose sensor (FreeStyle #2 ea 02/09/22 Sandra 14 Day Sensor kit) insulin lispro 100 unit/mL 4 - 6 unit (0.04 - 0.06 mL) subcut 02/23/22 subcutaneous pen (Humalog KwikPen TID #15 mL (U-100) Insulin) fluticasone propionate 50 1 spray intranasal DAILY #100 mL 03/20/22 mcg/actuation nasal spray,suspension (Flonase Allergy Relief) montelukast 10 mg tablet 10 mg PO DAILY #90 tabs 03/22/22 pantoprazole 40 mg tablet,delayed 40 mg PO DAILY #30 tabs 04/04/22 release Lantus Solostar U-100 Insulin 100 30 unit (0.3 mL) subcut DAILY 30 04/26/22 unit/mL (3 mL) subcutaneous pen days #9 mL (insulin glargine) atorvastatin 20 mg tablet 20 mg PO DAILY #90 tabs 04/26/22 canagliflozin 100 mg tablet 100 mg PO DAILY 30 days #30 tabs 04/26/22 cetirizine 10 mg capsule (Zyrtec) 10 mg PO DAILY PRN allergy 04/26/22 symptoms #30 caps cholecalciferol (vitamin D3) 25 25 mcg PO DAILY 90 days #90 tabs 04/26/22 mcg (1,000 unit) tablet (Vitamin D3) cyanocobalamin (vitamin B-12) 500 500 mcg sublingual DAILY 90 days 04/26/22 mcg disintegrating #90 tabs tablet,sublingual hydrochlorothiazide 12.5 mg tablet 12.5 mg PO QAM #90 tabs 04/26/22 metoclopramide HCl 5 mg tablet 5 mg PO DAILY 90 days #90 tabs 04/26/22 pioglitazone 30 mg tablet 30 mg PO DAILY 90 days #90 tabs 04/26/22 albuterol sulfate 90 mcg/actuation 2 puff inhalation Q4-6H PRN 05/25/22 aerosol inhaler (ProAir HFA) shortness of breath or wheezing #8.5 grams cyclobenzaprine 10 mg tablet 10 mg PO TID PRN muscle spasm #14 05/30/22 tabs lidocaine 5 % topical patch 1 patch topical DAILY #15 ea 05/30/22 naproxen 500 mg tablet 500 mg PO BID PRN pain #20 tabs 05/30/22 Allergies Allergy/AdvReac Type Severity Reaction Status Date / Time Penicillins Allergy Mild RASH/DYSPNE Verified 04/26/22 10:12 A metformin AdvReac Intermediate stomach Verified 04/26/22 10:12 upset Review of Systems Review of Systems: Constitutional: No Fever, No Chills ENT/Mouth: No sore throat, No Rhinorrhea, +Otalgia Cardiovascular: No Chest Pain, No SOB Respiratory: No Cough, No Sputum, No Wheezing, No dyspnea Gastrointestinal: No Nausea, No Vomiting, No abdominal Pain Musculoskeletal: No joint pain, + Myalgias Skin: No Skin Lesions, No rash Neuro: No Weakness, No Numbness, No Dizziness, No Headache Heme/Lymph: No Bruising, No Lymphadenopathy Endocrine: No Polyuria, No Polydipsia PMFSH Past Medical History Medical History Arthritis B12 deficiency Depression with anxiety Diabetes DM2 (diabetes mellitus, type 2) Dyslipidemia Ear discomfort Ear pain Edema Essential hypertension Fecal incontinence GERD (gastroesophageal reflux disease) Hearing loss Hearing loss Insomnia rn long term care (current) use of insulin Moderate asthma Moderate recurrent major depression Overweight Palpitations Pernicious anemia Polyarthralgia Tubular adenoma Type 2 diabetes mellitus with diabetic polyneuropathy Umbilical hernia Surgical History History of carpal tunnel release History of cholecystectomy History of endometrial ablation History of foot surgery History of surgery on arm History of tubal ligation History of umbilical hernia repair Family History Family History Mother Breast cancer Paternal Grandmother Breast cancer Brother Colon cancer Family/Other FH: mental illness Mental health disorder Social History Social History Household Members: Children Housing: Apartment Alcohol intake: never Patient Tobacco Use Status: Never used Tobacco e-Cigarette/Vaping Use: Never Used Second Hand Smoke Exposure: No Advance Directives: No Advance Directives Information Provided: Yes service: No Current occupational status: disabled Cognitive needs: No Hearing needs: No Vision needs: Yes Physical Exam Vital Signs: Vital Signs: Last Vital Signs Temp 96.8 F 05/30/22 08:06 Pulse 85 05/30/22 08:06 Resp 18 05/30/22 08:06 BP 116/56 L 05/30/22 08:06 Pulse Ox 97 05/30/22 08:06 O2 Del Method 05/30/22 08:06 BMI result Body Mass Index 27.6 Appearance: Alert. Oriented X3. No acute distress. Eyes: Pupils equal, round and reactive to light. ENT: Pharynx normal. Tympanic membranes are normal bilaterally. Neck: Normal inspection. Tenderness of the left occiput area, and soft tissues of the left lateral neck with palpable spasm of the upper trapezius. Normal range of motion of the neck with discomfort with lateral rotation. No midline tenderness. No nuchal rigidity. CVS: Normal heart rate and rhythm. Pulses normal. Respiratory: No respiratory distress. Breath sounds normal. Skin: Skin warm and dry. Normal skin color. Normal skin turgor. No rashes. Extremities: Normal inspection x4. Normal range of motion. Neuro: Oriented X 3. No motor deficit. No sensory deficit. Equal continuous pillowcase cutter strength bilaterally. Strength equal and symmetrical throughout Course Course Course Narrative: 56-year-old female presenting to the ER for evaluation of nontraumatic left- sided neck pain that she woke up with 2 days ago. Clinical exam and presentation are consistent with cervical muscle strain with palpable soft tissue tenderness and spasm. Will prescribe muscle relaxer and lidocaine patches. We discussed supportive care and symptomatic management. She was encourage follow-up with her primary care doctor. 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 Stable for discharge home. Discharge Plan Discharge Clinical Impression: Cervical muscle strain Patient Disposition: Home, Self-Care Instructions: Cervical Strain (ED) Additional Instructions: Rest, no strenuous activity. Use a heating pad to the area several times per day for 20 minutes at a time. Take medications as prescribed to help with pain and discomfort. Follow up with your Primary Care Doctor this week. If your pain worsens, if you develop new numbness, tingling, weakness, loss of function or any other concerning symptoms call 911 or come back to the ER right away for evaluation. [place], ninguna actividad extenuante. Use shelia almohadilla t?rmica en el ?mekhi varias veces al d?a gisselle 20 minutos a la vez. [place] los medicamentos seg?n lo prescrito para ayudar con el dolor y la incomodidad. [place] un seguimiento con rivero m?dico de atenci?n primaria esta semana. Si rivero dolor empeora, si desarrolla un nuevo entumecimiento, hormigueo, debilidad, p?rdida de funci?n o cualquier otro s?ntoma preocupante, llame al 911 o regrese a la wanda de emergencias de inmediato para shelia evaluaci?n. Prescriptions: New cyclobenzaprine 10 mg tablet 10 mg PO TID PRN (Reason: muscle spasm) Qty: 14 0RF lidocaine 5 % adhesive patch,medicated 1 patch topical DAILY Qty: 15 0RF Rx Instructions: leave on most painful area for up to 12 hrs naproxen 500 mg tablet 500 mg PO BID PRN (Reason: pain) Qty: 20 0RF No Action polyethylene glycol 3350 [Miralax] 17 gram/dose powder 17 g PO DAILY 30 Days Qty: 510 3RF (DME) FreeStyle Precision Margarito Strips Strip See Rx Instructions .MEDSUPPLY Qty: 25 6RF Rx Instructions: once a day for calibration (DME) lancets [FreeStyle Lancets] 28 gauge misc See Rx Instructions .ROUTE .MEDSUPPLY Qty: 200 11RF Rx Instructions: 4 times a day (DME) pen needle, diabetic [BD Sondra 2nd Gen Pen Needle] 32 gauge x 5/32 needle See Rx Instructions .MEDSUPPLY Qty: 150 11RF Rx Instructions: four times a day albuterol sulfate [ProAir HFA] 90 mcg/actuation HFA aerosol inhaler 2 puff inhalation Q4-6H PRN (Reason: shortness of breath or wheezing) 30 Days 0RF Linzess 290 mcg capsule 290 mcg PO QAM Qty: 30 4RF (DME) toilet seat elevator See Rx Instructions .Route .MEDSUPPLY Qty: 1 0RF Rx Instructions: As directed (DME) Shower Chair Misc See Rx Instructions .Route Qty: 1 0RF Rx Instructions: As directed naproxen 500 mg tablet 500 mg PO BID PRN (Reason: for pain) Qty: 60 3RF (DME) FreeStyle Sandra 14 Day Sensor Kit See Rx Instructions .MEDSUPPLY Qty: 2 11RF Rx Instructions: every 14 days insulin lispro [Humalog KwikPen Insulin] 100 unit/mL insulin pen 4 - 6 unit subcut TID Qty: 15 4RF fluticasone propionate [Flonase Allergy Relief] 50 mcg/actuation spray,suspension 1 spray intranasal DAILY Qty: 100 0RF Rx Instructions: administer into each nostril montelukast 10 mg tablet 10 mg PO DAILY Qty: 90 3RF pantoprazole 40 mg tablet,delayed release (DR/EC) 40 mg PO DAILY Qty: 30 2RF Rx Instructions: take one tablet half an hour before breakfast albuterol sulfate [ProAir HFA] 90 mcg/actuation HFA aerosol inhaler 2 puff inhalation Q4-6H PRN (Reason: shortness of breath or wheezing) Qty: 8.5 0RF albuterol sulfate 2.5 mg /3 mL (0.083 %) solution for nebulization 2.5 mg inhalation Q4-6H PRN (Reason: bronchospasm) Qty: 75 0RF flu vacc [id number] 6mos up(PF) 60 mcg (15 mcg x 4)/0.5 mL syringe 0.5 ml IM ONCE Qty: 0.5 0RF zolpidem 5 mg tablet 5 mg PO BEDTIME PRN lorazepam 0.5 mg tablet 0.5 mg PO DAILY PRN sertraline 100 mg tablet 100 mg PO DAILY phenazopyridine [Pyridium] 200 mg tablet 200 mg PO TID 3 Days Qty: 9 0RF insulin glargine [Lantus Solostar U-100 Insulin] 100 unit/mL (3 mL) insulin pen 30 unit subcut DAILY 30 Days Qty: 9 6RF hydrochlorothiazide 12.5 mg tablet 12.5 mg PO QAM Qty: 90 2RF atorvastatin 20 mg tablet 20 mg PO DAILY Qty: 90 2RF canagliflozin 100 mg tablet 100 mg PO DAILY 30 Days Qty: 30 6RF Zyrtec 10 mg capsule 10 mg PO DAILY PRN (Reason: allergy symptoms) Qty: 30 0RF cholecalciferol (vitamin D3) [Vitamin D3] 25 mcg (1,000 unit) tablet 25 mcg PO DAILY 90 Days Qty: 90 3RF cyanocobalamin (vitamin B-12) 500 mcg tablet,disintegrating 500 mcg sublingual DAILY 90 Days Qty: 90 1RF metoclopramide HCl 5 mg tablet 5 mg PO DAILY 90 Days Qty: 90 3RF pioglitazone 30 mg tablet 30 mg PO DAILY 90 Days Qty: 90 1RF prednisone 20 mg tablet 40 mg PO DAILY 5 Days Qty: 10 0RF clotrimazole-betamethasone 1-0.05 % cream 1 appl topical BID 5 Days Qty: 45 0RF (DME) blood-glucose meter [FreeStyle Lite Meter] Kit See Rx Instructions .ROUTE .MEDSUPPLY Qty: 1 0RF Rx Instructions: 4x/day (DME) FreeStyle Lite Strips Strip See Rx Instructions .ROUTE .MEDSUPPLY Qty: 150 11RF Rx Instructions: As directed four times a day (DME) lancets 28 gauge misc See Rx Instructions topical TID Qty: 100 11RF Rx Instructions: As directed 4 x/day (DME) FreeStyle Sandra 14 Day [place] Misc See Rx Instructions .ROUTE .MEDSULY Qty: 1 11RF Rx Instructions: As directed every 2 weeks Referrals: Norma Lopes MD [Primary Care Provider] - Interventions: ED Discharge Assessment Last Done: 05/30/22 09:42 Discharge Date/Time: 05/30/22 09:43 Print Language: Panamanian
== END 2022-05-30 09:43 | disposition home or self-care (01) ==
PROVIDERS: Emergency Provider Emergency Medicine; PCP Internal Medicine
DX: S16.1XXA Strain of muscle, fascia and tendon at neck level, initial encounter (principal); X50.1XXA Overexertion from prolonged static or awkward postures, initial encounter; E11.21 Type 2 diabetes mellitus with diabetic nephropathy; I10 Essential (primary) hypertension; E78.5 Hyperlipidemia, unspecified; Z79.899 Other long term (current) drug therapy; Z79.4 Long term (current) use of insulin; Z79.02 Long term (current) use of antithrombotics/antiplatelets; Y93.84 Activity, sleeping; Y92.032 Bedroom in apartment as the place of occurrence of the external cause; Y99.9 Unspecified external cause status
CPT/HCPCS: 99212; 99283

== ENCOUNTER → 2022-06-28 08:18 | Outpatient (BNVA) | payer OTHER, SELFPAY | PROVIDERS: PCP Internal Medicine; Referring Provider Internal Medicine; Visit Provider Nurse Practitioner Family | DX: K21.9 Gastro-esophageal reflux disease without esophagitis (principal); K59.04 Chronic idiopathic constipation; R14.0 Abdominal distension (gaseous); Z79.899 Other long term (current) drug therapy | CPT/HCPCS: 99212 ==

== ENCOUNTER 2022-07-15 09:12 | Outpatient (REF) | payer OTHER, SELFPAY ==
[2022-07-15 10:21] LABS: Appearance Urine Clear; Color Urine Yellow; Glucose Urine UA >=1000 mg/dL (Negative); Leukocyte Esterase Urine Negative (Negative); Nitrite Urine Negative (Negative); PH 5.5 (5.0-9.0); Specific Gravity - Urine >= 1.030 (1.005-1.025); UMIC TRIGGER UACC YES; Urine Blood Negative (Negative); Urine Ketones Trace mg/dL (Negative); Urine Protein Negative (Neg-Trace)
[2022-07-15 10:26] LABS: Bacteria Urine None Seen (None Seen); Hyaline Casts Urine 0-2 /LPF (0-2); RBC Urine 0-2 /HPF (0-2); Squamous Epithelial Cell Urine 0-2 /HPF (0-2); WBC Urine 0-5 /HPF (0-5)
[2022-07-15 11:10] LABS: Creatinine Urine 120.49 mg/dL; Microalbum/Creatinine Ratio Ur 6.6 ug/mg cr
[2022-07-15 11:47] LABS: Alanine Aminotransferase 33 U/L (0-31); Alkaline Phosphatase 60 U/L (39-117); Anion Gap 15 (12-20); Aspartate Amino Transferase 24 U/L (5-31); Bilirubin Total 0.4 mg/dL (0.0-1.0); Blood Urea Nitrogen 19 mg/dL (9-16); Calcium 9.6 mg/dL (8.4-10.2); Carbon Dioxide 27 mmol/L (22-29); Chloride 104 mmol/L (96-108); Cholesterol 145 mg/dL; Estimated Glomerular Filt Rate > 60; Glucose Fasting 172 mg/dL (60-99); HDL Cholesterol 30 mg/dL; LDL Cholesterol Calculated 95 mg/dl; Potassium 4.2 mmol/L (3.3-5.1); Sodium 142 mmol/L (135-145); Triglycerides 101 mg/dL
[2022-07-15 12:05] LABS: Vitamin D 25-OH Total 38.7 ng/mL (>30)
== END 2022-07-15 09:13 | disposition home or self-care (01) ==
LOC: HO.LAB 09:12
PROVIDERS: PCP Internal Medicine; Visit Provider Internal Medicine
DX: E55.9 Vitamin D deficiency, unspecified (principal); E11.9 Type 2 diabetes mellitus without complications; E78.5 Hyperlipidemia, unspecified; E11.42 Type 2 diabetes mellitus with diabetic polyneuropathy; R30.0 Dysuria
CPT/HCPCS: 36415; 80053; 80061; 81001; 82043; 82306

== ENCOUNTER 2022-08-02 11:51 | Emergency (ER) | payer OTHER, SELFPAY ==
--- NOTE | ~2022-08-02 | XR_ITS ---
EXAMINATION: XR FOOT, RIGHT CLINICAL INFORMATION: Foot pain,? Fracture. Third toe pain. COMPARISON: Right foot radiographs 06/07/2017 TECHNIQUE: AP, lateral, and oblique views of the right foot. FINDINGS: Mild periarticular osteopenia. Normal alignment. On the oblique view, a subtle lucency could be present through the lateral aspect base third middle phalanx. This is not characterized on the other views and overlap of the digits limits assessment on the lateral view. No additional findings. Degenerative changes are seen in the midfoot. Posterior and plantar calcaneal spurs are demonstrated. XR/XR foot RT min 3V IMPRESSION: Possible lucency base middle phalanx third digit and a subtle fracture is not excluded. A dedicated lateral view of the third digit could provide additional information.
[2022-08-02 12:41] VITALS: BP 146/60; PULSE 82; RESP 14; TEMP 36.2; O2SAT 97; BMI 28.0
--- NOTE | 2022-08-02 12:43 | ED_ITS ---
HPI - General Adult General Chief complaint: Extremity Injury, Lower <KARINA Davidson - Last Filed: 08/08/22 11:25> Stated complaint: R foot inj <KARIAN Davidson - Last Filed: 08/08/22 11:25> Time Seen by Provider: 08/02/22 13:48 <KARINA Davidson Last Filed: 08/08/22 11:25> Source: patient <KARINA Whipple Last Filed: 08/02/22 14:33> Mode of arrival: ambulatory <KARINA Whipple - Last Filed: 08/02/22 14:33> Limitations: no limitations <KARINA Whipple Last Filed: 08/02/22 14:33> History of Present Illness HPI narrative: 56 yo female presents to the ER for evaluation of right foot and toe pain after she accidentally kicked a chair yesterday. She woke up today and had bruising to the 3th and 4th toes and part of her foot. She denies much pain to the area and says she has decreased sensation due to her diabetes. She denies any wounds to the foot. No tingling or weakness. <KARINA Whipple - Last Filed: 08/02/22 14:33> MD complaint: foot swelling and bruising s/p injury yesterday <KARINA Whipple - Last Filed: 08/02/22 14:33> Onset (ago): day(s) (1) <KARINA Whipple Last Filed: 08/02/22 14:33> Location: right and lower extremity <KARINA Whipple Last Filed: 08/02/22 14:33> Radiation: non-radiation <KARINA Whipple Last Filed: 08/02/22 14:33> Severity: moderate <KARINA Whipple Last Filed: 08/02/22 14:33> Severity scale (1-10): 2 <KARINA Whipple Last Filed: 08/02/22 14:33> Quality: aching <KARINA Whipple Last Filed: 08/02/22 14:33> Pain Consistency: intermittent <KARINA Whipple Last Filed: 08/02/22 14:33> Relieving factors: none <KARINA Whipple - Last Filed: 08/02/22 14:33> Exacerbating factors: none <KARINA Whipple - Last Filed: 08/02/22 14:33> Associated symptoms: denies other symptoms <KARINA Whipple - Last Filed: 08/02/22 14:33> Treatments prior to arrival: none <KARINA Whipple - Last Filed: 08/02/22 14:33> Related Data Home medications: Home Medications Medication Instructions Recorded Confirmed lorazepam 0.5 mg tablet 0.5 mg PO DAILY PRN 04/16/20 07/18/22 zolpidem 5 mg tablet 5 mg PO BEDTIME PRN 04/16/20 07/18/22 sertraline 100 mg tablet 100 mg PO DAILY 06/17/20 07/18/22 Previous Rx's Medication Instructions Recorded clotrimazole-betamethasone 1 1 appl topical BID 5 days #45 grams 11/25/20 %-0.05 % topical cream FreeStyle Precision Margarito Strips #25 ea 01/18/21 (blood sugar diagnostic) lancets 28 gauge (FreeStyle #200 ea 04/14/21 Lancets) pen needle, diabetic 32 gauge x #150 ea 04/15/21 (BD Sondra 2nd Gen Pen Needle) linaclotide 290 mcg capsule 290 mcg PO QAM #30 caps 05/25/21 (Linzess) albuterol sulfate 2.5 mg/3 mL 2.5 mg (3 mL) inhalation Q4-6H PRN 07/05/21 (0.083 %) solution for nebulization bronchospasm #75 mL Shower Chair #1 ea 08/02/21 toilet seat elevator #1 ea 08/02/21 blood sugar diagnostic (FreeStyle #150 ea 09/07/21 Lite Strips) blood-glucose meter (FreeStyle #1 ea 09/07/21 Lite Meter kit) flash glucose scanning reader #1 ea 09/07/21 (FreeStyle Sandra 14 Day [place]) lancets 28 gauge #100 ea 09/07/21 flash glucose sensor (FreeStyle #2 ea 08/10/22 Sandra 14 Day Sensor kit) insulin lispro 100 unit/mL 4 - 6 unit (0.04 - 0.06 mL) subcut 02/23/22 subcutaneous pen (Humalog KwikPen TID #15 mL (U-100) Insulin) fluticasone propionate 50 1 spray intranasal DAILY #100 mL 03/20/22 mcg/actuation nasal spray,suspension (Flonase Allergy Relief) cetirizine 10 mg capsule (Zyrtec) 10 mg PO DAILY PRN allergy 04/26/22 symptoms #30 caps cyanocobalamin (vitamin B-12) 500 500 mcg sublingual DAILY 90 days 04/26/22 mcg disintegrating #90 tabs tablet,sublingual hydrochlorothiazide 12.5 mg tablet 12.5 mg PO QAM #90 tabs 04/26/22 metoclopramide HCl 5 mg tablet 5 mg PO DAILY 90 days #90 tabs 04/26/22 pioglitazone 30 mg tablet 30 mg PO DAILY 90 days #90 tabs 04/26/22 albuterol sulfate 90 mcg/actuation 2 puff inhalation Q4-6H PRN 05/25/22 aerosol inhaler (ProAir HFA) shortness of breath or wheezing #8.5 grams cyclobenzaprine 10 mg tablet 10 mg PO TID PRN muscle spasm #14 05/30/22 tabs lidocaine 5 % topical patch 1 patch topical DAILY #15 ea 05/30/22 heating pads #1 ea 05/31/22 canagliflozin 100 mg tablet 100 mg PO DAILY 30 days #30 tabs 06/20/22 cholecalciferol (vitamin D3) 25 25 mcg PO DAILY 90 days #90 tabs 06/20/22 mcg (1,000 unit) tablet (Vitamin D3) montelukast 10 mg tablet 10 mg PO DAILY #90 tabs 06/22/22 Ventolin HFA 90 mcg/actuation 2 puff inhalation Q6H PRN 06/27/22 aerosol inhaler (albuterol sulfate) shortness of breath or wheezing 30 days #8 grams bisacodyl 5 mg tablet,delayed 10 mg PO BEDTIME #180 tabs 06/28/22 release (Dulcolax (bisacodyl)) docusate sodium 100 mg capsule 100 mg PO BEDTIME #90 caps 06/28/22 famotidine 20 mg tablet (Pepcid) 20 mg PO BEDTIME #90 tabs 06/28/22 pantoprazole 40 mg tablet,delayed 40 mg PO DAILY #90 tabs 06/28/22 release polyethylene glycol 3350 17 17 g PO DAILY 30 days #510 grams 06/28/22 gram/dose oral powder (Miralax) Lantus Solostar U-100 Insulin 100 35 unit (0.35 mL) subcut DAILY 90 07/18/22 unit/mL (3 mL) subcutaneous pen days #31.5 mL (insulin glargine) atorvastatin 40 mg tablet 40 mg PO BEDTIME 90 days #90 tabs 07/18/22 naproxen 500 mg tablet 500 mg PO BID PRN pain #20 tabs 07/24/22 <KARINA Davidson - Last Filed: 08/08/22 11:25> Allergies/adverse reactions: Allergies Allergy/AdvReac Type Severity Reaction Status Date / Time Penicillins Allergy Mild RASH/DYSPNE Verified 08/05/22 14:36 A metformin AdvReac Intermediate stomach Verified 08/05/22 14:36 upset <KARINA Davidson - Last Filed: 08/08/22 11:25> Review of Systems Review of Systems: Yes all other systems are reviewed and are negative <KARINA Whipple - Last Filed: 08/02/22 14:33> FORMERLY [facility], [facility] Past Medical History Medical History: Medical History Arthritis B12 deficiency Depression with anxiety Diabetes DM2 (diabetes mellitus, type 2) Dyslipidemia Ear discomfort Ear pain Edema Essential hypertension GERD (gastroesophageal reflux disease) Hearing loss Hearing loss Insomnia snf (current) use of insulin Moderate asthma Moderate recurrent major depression Overweight Palpitations Pernicious anemia Polyarthralgia Tubular adenoma Type 2 diabetes mellitus with diabetic polyneuropathy Umbilical hernia <KARINA Davidson - Last Filed: 08/08/22 11:25> Surgical History: Surgical History History of carpal tunnel release History of cholecystectomy History of endometrial ablation History of foot surgery History of surgery on arm History of tubal ligation History of umbilical hernia repair <KARINA Davidson - Last Filed: 08/08/22 11:25> Family History Family History: Family History Mother Breast cancer Paternal Grandmother Breast cancer Brother Colon cancer Family/Other FH: mental illness Mental health disorder <KARINA Davidson - Last Filed: 08/08/22 11:25> Social History Social History: Social History Household Members: Children Housing: Apartment Alcohol intake: never Patient Tobacco Use Status: Never used Tobacco e-Cigarette/Vaping Use: Never Used Second Hand Smoke Exposure: No service: No Current occupational status: disabled Cognitive needs: No Hearing needs: No Vision needs: Yes <KARINA Davidson - Last Filed: 08/08/22 11:25> Physical Exam ED Vital Signs: Vital Signs - 24 hr 08/02/22 12:41 08/02/22 13:53 Temperature 97.1 F 98.8 F Pulse Rate 82 89 Respiratory Rate 14 20 Blood Pressure 146/60 H 146/60 H Pulse Oximetry 97 97 Oxygen Delivery Method Room Air Room Air BMI result Body Mass Index 28.0 <KARINA Davidson - Last Filed: 08/08/22 11:25> Vital Signs - 24 hr 08/02/22 12:41 08/02/22 13:53 Temperature 97.1 F 98.8 F Pulse Rate 82 89 Respiratory Rate 14 20 Blood Pressure 146/60 H 146/60 H Pulse Oximetry 97 97 Oxygen Delivery Method Room Air Room Air BMI result Body Mass Index 28.0 <KARINA Whipple - Last Filed: 08/02/22 14:33> Appearance: Alert. Oriented X3. No acute distress. HEENT: normal inspection CVS: Normal heart rate and rhythm. Pulses normal. Respiratory: No respiratory distress. Skin: Skin warm and dry. Normal skin color. Normal skin turgor. No rashes. Extremities: right foot with ecchymosis of the 3th and 4th digits, distal foot, normal ROM of the toes, cap refill <3 sec. no wounds. minimally tender Neuro: Oriented X 3. No motor deficit. sensory deficit to the bottom of the right foot. steady gait <KARINA Whipple Last Filed: 08/02/22 14:33> Course Course Course Narrative: RME: 56 yold connor presents to the ED for right 3rd adn 4th toe pain after hitting it on chair at home. exam positive for 3rd and 4th toe ecchymosis. Xray ordered. <KARIAN Davidson - Last Filed: 08/08/22 11:25> Reevaluation(s) Reevaluation #1: xr showing probable toe fracture of the 3rd digit. will give post-op shoe. stable for d/c home with follow up with her PCP <KARINA Whipple - Last Filed: 08/02/22 14:33> Medical Decision Making Differential Diagnosis Differential Diagnoses: The differential diagnosis associated with the presentation includes <KARINA Whipple - Last Filed: 08/02/22 14:33> Broken toe and or toes, broken metatarsal, contusion, <KARINA Whipple - Last Filed: 08/02/22 14:33> Independent Interpretation I performed an independent interpretation of an: Plain X-Ray <KARINA Whipple - Last Filed: 08/02/22 14:33> Interpretation: ?fracture 3rd toe <KARINA Whipple - Last Filed: 08/02/22 14:33> Radiology Impression Discussion of test interpretation with radiology: I have reviewed the radiologist's reading. <KARINA Whipple - Last Filed: 08/02/22 14:33> Radiologist Impression: XR/XR foot RT min 3V IMPRESSION: Possible lucency base middle phalanx third digit and a subtle fracture is not excluded. A dedicated lateral view of the third digit could provide additional information. <KARINA Whipple - Last Filed: 08/02/22 14:33> External Record Review External record reviewed: Prior outpatient labs and Prior outpatient radiology <KARINA Whipple - Last Filed: 08/02/22 14:33> Prescription Management I considered prescription management with: Pain Medication <KARINA Whipple - Last Filed: 08/02/22 14:33> Chronic Conditions Patient?s care impacted by: Diabetes <KARINA Whipple - Last Filed: 08/02/22 14:33> Critical Care Time Critical Care Time Critical Care Time: No <KARINA Whipple - Last Filed: 08/02/22 14:33> Discharge Plan Discharge Clinical Impression: Broken toe <KARINA Davidson - Last Filed: 08/08/22 11:25> Patient Disposition: Home, Self-Care <KARINA Davidson - Last Filed: 08/08/22 11:25> Instructions: Toe Fracture (ED) <KARINA Davidson - Last Filed: 08/08/22 11:25> Additional Instructions: Wear the provided post-op shoe when walking. Use ice and elevate the foot when able. Take motrin and/or tylenol as needed for pain. <KARINA Davidson - Last Filed: 08/08/22 11:25> Prescriptions: No Action (DME) FreeStyle Precision Margarito Strips Strip See Rx Instructions .MEDSUPPLY Qty: 25 6RF Rx Instructions: once a day for calibration (DME) lancets [FreeStyle Lancets] 28 gauge misc See Rx Instructions .ROUTE .MEDSUPPLY Qty: 200 11RF Rx Instructions: 4 times a day (DME) pen needle, diabetic [BD Sondra 2nd Gen Pen Needle] 32 gauge x 5/32 needle See Rx Instructions .MEDSUPPLY Qty: 150 11RF Rx Instructions: four times a day Linzess 290 mcg capsule 290 mcg PO QAM Qty: 30 4RF (DME) toilet seat elevator See Rx Instructions .Route .MEDSUPPLY Qty: 1 0RF Rx Instructions: As directed (DME) Shower Chair Misc See Rx Instructions .Route Qty: 1 0RF Rx Instructions: As directed (DME) FreeStyle Sandra 14 Day Sensor Kit See Rx Instructions .MEDSUPPLY Qty: 2 11RF Rx Instructions: every 14 days insulin lispro [Humalog KwikPen Insulin] 100 unit/mL insulin pen 4 - 6 unit subcut TID Qty: 15 4RF fluticasone propionate [Flonase Allergy Relief] 50 mcg/actuation spray,suspension 1 spray intranasal DAILY Qty: 100 0RF Rx Instructions: administer into each nostril albuterol sulfate [ProAir HFA] 90 mcg/actuation HFA aerosol inhaler 2 puff inhalation Q4-6H PRN (Reason: shortness of breath or wheezing) Qty: 8.5 0RF (DME) heating pads Pad See Rx Instructions .Route Qty: 1 0RF Rx Instructions: As directed canagliflozin 100 mg tablet 100 mg PO DAILY 30 Days Qty: 30 6RF cholecalciferol (vitamin D3) [Vitamin D3] 25 mcg (1,000 unit) tablet 25 mcg PO DAILY 90 Days Qty: 90 3RF montelukast 10 mg tablet 10 mg PO DAILY Qty: 90 3RF albuterol sulfate [Ventolin HFA] 90 mcg/actuation HFA aerosol inhaler 2 puff inhalation Q6H PRN (Reason: shortness of breath or wheezing) 30 Days Qty: 8 1RF naproxen 500 mg tablet 500 mg PO BID PRN (Reason: pain) Qty: 20 0RF albuterol sulfate 2.5 mg /3 mL (0.083 %) solution for nebulization 2.5 mg inhalation Q4-6H PRN (Reason: bronchospasm) Qty: 75 0RF cyclobenzaprine 10 mg tablet 10 mg PO TID PRN (Reason: muscle spasm) Qty: 14 0RF lidocaine 5 % adhesive patch,medicated 1 patch topical DAILY Qty: 15 0RF Rx Instructions: leave on most painful area for up to 12 hrs flu vacc [id number] 6mos up(PF) 60 mcg (15 mcg x 4)/0.5 mL syringe 0.5 ml IM ONCE Qty: 0.5 0RF zolpidem 5 mg tablet 5 mg PO BEDTIME PRN lorazepam 0.5 mg tablet 0.5 mg PO DAILY PRN sertraline 100 mg tablet 100 mg PO DAILY hydrochlorothiazide 12.5 mg tablet 12.5 mg PO QAM Qty: 90 2RF Zyrtec 10 mg capsule 10 mg PO DAILY PRN (Reason: allergy symptoms) Qty: 30 0RF cyanocobalamin (vitamin B-12) 500 mcg tablet,disintegrating 500 mcg sublingual DAILY 90 Days Qty: 90 1RF metoclopramide HCl 5 mg tablet 5 mg PO DAILY 90 Days Qty: 90 3RF pioglitazone 30 mg tablet 30 mg PO DAILY 90 Days Qty: 90 1RF insulin glargine [Lantus Solostar U-100 Insulin] 100 unit/mL (3 mL) insulin pen 35 unit subcut DAILY 90 Days Qty: 31.5 1RF atorvastatin 40 mg tablet 40 mg PO BEDTIME 90 Days Qty: 90 0RF clotrimazole-betamethasone 1-0.05 % cream 1 appl topical BID 5 Days Qty: 45 0RF pantoprazole 40 mg tablet,delayed release (DR/EC) 40 mg PO DAILY Qty: 90 2RF Rx Instructions: take one tablet half an hour before breakfast famotidine [Pepcid] 20 mg tablet 20 mg PO BEDTIME Qty: 90 3RF bisacodyl [Dulcolax (bisacodyl)] 5 mg tablet,delayed release (DR/EC) 10 mg PO BEDTIME Qty: 180 4RF docusate sodium 100 mg capsule 100 mg PO BEDTIME Qty: 90 3RF polyethylene glycol 3350 [Miralax] 17 gram/dose powder 17 g PO DAILY 30 Days Qty: 510 3RF (DME) blood-glucose meter [FreeStyle Lite Meter] Kit See Rx Instructions .ROUTE .MEDSUPPLY Qty: 1 0RF Rx Instructions: 4x/day (DME) FreeStyle Lite Strips Strip See Rx Instructions .ROUTE .MEDSUPPLY Qty: 150 11RF Rx Instructions: As directed four times a day (DME) lancets 28 gauge misc See Rx Instructions topical TID Qty: 100 11RF Rx Instructions: As directed 4 x/day (DME) FreeStyle Sandra 14 Day [place] Misc See Rx Instructions .ROUTE .MEDSUPPLY Qty: 1 11RF Rx Instructions: As directed every 2 weeks <KARINA Davidson - Last Filed: 08/08/22 11:25> Referrals: Norma Lopes MD [Primary Care Provider] - <KARINA Davidson - Last Filed: 08/08/22 11:25> Interventions: ED Discharge Assessment Last Done: 08/02/22 14:34 <KARINA Davidson - Last Filed: 08/08/22 11:25> Discharge Date/Time: 08/02/22 14:35 <KARINA Davidson - Last Filed: 08/08/22 11:25> Print Language: Brazilian <KARINA Davidson - Last Filed: 08/08/22 11:25>
[2022-08-02 13:53] VITALS: BP 146/60; PULSE 89; RESP 20; TEMP 37.1; O2SAT 97
== END 2022-08-02 14:35 | disposition home or self-care (01) ==
PROVIDERS: Emergency Provider Emergency Medicine; PCP Internal Medicine
DX: S92.521A Displaced fracture of middle phalanx of right lesser toe(s), initial encounter for closed fracture (principal); W22.03XA Walked into furniture, initial encounter; E11.9 Type 2 diabetes mellitus without complications; Z79.4 Long term (current) use of insulin; Z79.899 Other long term (current) drug therapy; Y93.89 Activity, other specified; Y92.039 Unspecified place in apartment as the place of occurrence of the external cause; Y99.9 Unspecified external cause status
CPT/HCPCS: 73630; 99283

== ENCOUNTER → 2022-08-05 14:31 | Outpatient (BNVA) | payer OTHER, SELFPAY | PROVIDERS: PCP Internal Medicine; Visit Provider Physician Assistant | DX: S99.921A Unspecified injury of right foot, initial encounter (principal) | CPT/HCPCS: 99202 ==

== ENCOUNTER 2022-08-12 07:14 | Emergency (ER) | payer OTHER, SELFPAY ==
[2022-08-12 07:19] VITALS: BP 139/66; PULSE 79; RESP 18; TEMP 35.9; O2SAT 99; BMI 28.0
[2022-08-12 08:12] LABS: Hematocrit 41.8 % (37.0-47.0); Hemoglobin 13.5 g/dl (12.0-16.0); Mean Corpuscular HGB Conc 32.3 g/dl (31.0-35.0); Mean Corpuscular Hemoglobin 28.1 pg (27.0-33.0); Mean Corpuscular Volume 87.1 fL (80.0-98.0); Mean Platelet Volume 11.4 fL (9.4-12.3); Platelet Count 162 X10*3/uL (160-400); Red Cell Distribution Width 12.5 % (11.0-16.0); White Blood Count 6.4 X10*3/uL (4.8-10.8)
[2022-08-12 08:36] LABS: Anion Gap 12 (12-20); Blood Urea Nitrogen 19 mg/dL (9-16); Calcium 9.3 mg/dL (8.4-10.2); Carbon Dioxide 26 mmol/L (22-29); Chloride 107 mmol/L (96-108); Creatinine Clr Calc Pharmacy 71.7; Estimated Glomerular Filt Rate > 60; Glucose Random 242 mg/dL (60-115); Potassium 4.1 mmol/L (3.3-5.1); Sodium 141 mmol/L (135-145)
--- NOTE | 2022-08-12 08:43 | ED_ITS ---
HPI - Extremity Problem General Chief complaint: Extremity Problem Stated complaint: L Leg Pain No Injury Time Seen by Provider: 08/12/22 08:01 Source: patient and interpreter for the deaf Mode of arrival: ambulatory History of Present Illness HPI Narrative: 56-year-old female who presents with left medial thigh pain that was not associated with any traumatic injury, no fevers no chills, no nausea/vomiting/obstipation/constipation/shortness of breath/recent travel. Patient states that she has had the same thing on her other leg before. Related Data Home Medications Medication Instructions Recorded Confirmed lorazepam 0.5 mg tablet 0.5 mg PO DAILY PRN 04/16/20 07/18/22 zolpidem 5 mg tablet 5 mg PO BEDTIME PRN 04/16/20 07/18/22 sertraline 100 mg tablet 100 mg PO DAILY 06/17/20 07/18/22 Previous Rx's Medication Instructions Recorded clotrimazole-betamethasone 1 1 appl topical BID 5 days #45 grams 11/25/20 %-0.05 % topical cream FreeStyle Precision Margarito Strips #25 ea 01/18/21 (blood sugar diagnostic) lancets 28 gauge (FreeStyle #200 ea 04/14/21 Lancets) pen needle, diabetic 32 gauge x #150 ea 04/15/21 (BD Sondra 2nd Gen Pen Needle) linaclotide 290 mcg capsule 290 mcg PO QAM #30 caps 05/25/21 (Linzess) albuterol sulfate 2.5 mg/3 mL 2.5 mg (3 mL) inhalation Q4-6H PRN 07/05/21 (0.083 %) solution for nebulization bronchospasm #75 mL Shower Chair #1 ea 08/02/21 toilet seat elevator #1 ea 08/02/21 blood sugar diagnostic (FreeStyle #150 ea 09/07/21 Lite Strips) blood-glucose meter (FreeStyle #1 ea 09/07/21 Lite Meter kit) flash glucose scanning reader #1 ea 09/07/21 (FreeStyle Sandra 14 Day [place]) lancets 28 gauge #100 ea 09/07/21 flash glucose sensor (FreeStyle #2 ea 02/09/22 Sandra 14 Day Sensor kit) insulin lispro 100 unit/mL 4 - 6 unit (0.04 - 0.06 mL) subcut 02/23/22 subcutaneous pen (Humalog KwikPen TID #15 mL (U-100) Insulin) fluticasone propionate 50 1 spray intranasal DAILY #100 mL 03/20/22 mcg/actuation nasal spray,suspension (Flonase Allergy Relief) cetirizine 10 mg capsule (Zyrtec) 10 mg PO DAILY PRN allergy 04/26/22 symptoms #30 caps cyanocobalamin (vitamin B-12) 500 500 mcg sublingual DAILY 90 days 04/26/22 mcg disintegrating #90 tabs tablet,sublingual hydrochlorothiazide 12.5 mg tablet 12.5 mg PO QAM #90 tabs 04/26/22 metoclopramide HCl 5 mg tablet 5 mg PO DAILY 90 days #90 tabs 04/26/22 pioglitazone 30 mg tablet 30 mg PO DAILY 90 days #90 tabs 04/26/22 albuterol sulfate 90 mcg/actuation 2 puff inhalation Q4-6H PRN 05/25/22 aerosol inhaler (ProAir HFA) shortness of breath or wheezing #8.5 grams cyclobenzaprine 10 mg tablet 10 mg PO TID PRN muscle spasm #14 05/30/22 tabs lidocaine 5 % topical patch 1 patch topical DAILY #15 ea 05/30/22 heating pads #1 ea 05/31/22 canagliflozin 100 mg tablet 100 mg PO DAILY 30 days #30 tabs 06/20/22 cholecalciferol (vitamin D3) 25 25 mcg PO DAILY 90 days #90 tabs 06/20/22 mcg (1,000 unit) tablet (Vitamin D3) montelukast 10 mg tablet 10 mg PO DAILY #90 tabs 06/22/22 Ventolin HFA 90 mcg/actuation 2 puff inhalation Q6H PRN 06/27/22 aerosol inhaler (albuterol sulfate) shortness of breath or wheezing 30 days #8 grams bisacodyl 5 mg tablet,delayed 10 mg PO BEDTIME #180 tabs 06/28/22 release (Dulcolax (bisacodyl)) docusate sodium 100 mg capsule 100 mg PO BEDTIME #90 caps 06/28/22 famotidine 20 mg tablet (Pepcid) 20 mg PO BEDTIME #90 tabs 06/28/22 pantoprazole 40 mg tablet,delayed 40 mg PO DAILY #90 tabs 06/28/22 release polyethylene glycol 3350 17 17 g PO DAILY 30 days #510 grams 06/28/22 gram/dose oral powder (Miralax) Lantus Solostar U-100 Insulin 100 35 unit (0.35 mL) subcut DAILY 90 07/18/22 unit/mL (3 mL) subcutaneous pen days #31.5 mL (insulin glargine) atorvastatin 40 mg tablet 40 mg PO BEDTIME 90 days #90 tabs 07/18/22 naproxen 500 mg tablet 500 mg PO BID PRN pain #20 tabs 07/24/22 cefuroxime axetil 250 mg tablet 250 mg PO BID #14 tabs 08/10/22 Allergies Allergy/AdvReac Type Severity Reaction Status Date / Time Penicillins Allergy Mild RASH/DYSPNE Verified 08/10/22 16:55 A metformin AdvReac Intermediate stomach Verified 08/10/22 16:55 upset Review of Systems Review of Systems: Pertinent positives and negatives as stated in HPI [facility] Past Medical History Source: nursing notes reviewed Medical History Arthritis B12 deficiency Depression with anxiety Diabetes DM2 (diabetes mellitus, type 2) Dyslipidemia Ear discomfort Ear pain Edema Essential hypertension GERD (gastroesophageal reflux disease) Hearing loss Hearing loss Insomnia 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 Moderate asthma Moderate recurrent major depression Overweight Palpitations Pernicious anemia Polyarthralgia Tubular adenoma Type 2 diabetes mellitus with diabetic polyneuropathy Umbilical hernia Surgical History History of carpal tunnel release History of cholecystectomy History of endometrial ablation History of foot surgery History of surgery on arm History of tubal ligation History of umbilical hernia repair Family History Family History Mother Breast cancer Paternal Grandmother Breast cancer Brother Colon cancer Family/Other FH: mental illness Mental health disorder Social History Social History Household Members: Children Housing: Apartment Alcohol intake: never Patient Tobacco Use Status: Never used Tobacco e-Cigarette/Vaping Use: Never Used Second Hand Smoke Exposure: No Advance Directives: No Advance Directives Information Provided: Yes service: No Current occupational status: disabled Cognitive needs: No Hearing needs: No Vision needs: Yes Physical Exam Vital Signs: Vital Signs: Last Vital Signs Temp 96.7 F L 08/12/22 07:19 Pulse 79 08/12/22 07:19 Resp 18 08/12/22 07:19 BP 139/66 08/12/22 07:19 Pulse Ox 99 08/12/22 07:19 O2 Del Method 08/12/22 07:19 BMI result Body Mass Index 28.0 VITAL SIGNS: Reviewed. GENERAL: Well developed, well nourished, in no acute distress. HEAD: Normocephalic/atraumatic EYES: PERRLA, EOMI LUNGS: Normal breath sounds. No adventitious sounds or accessory muscle use. SpO2<99> CARDIOVASCULAR: Regular rate and rhythm without noted murmurs ABDOMEN: Soft, non-tender, non-distended with bowel sounds. MUSCULOSKELETAL: No tenderness, deformities, or effusions noted on gross inspection. EXTREMITIES: No cyanosis, clubbing or edema; LEFT LOWER EXTREMITY: There is no erythema/induration/deformity, on palpation over the medial thigh there are no swelling/mass is, no cords. SKIN: Inspection of the skin reveals no rashes NEUROLOGIC: Alert and oriented x 4. Strength and sensation to light touch were grossly intact x 4. Medical Decision Making Medical Decision Making [facility] Narrative: 56-year-old female with suspected musculoskeletal injury due to the lack of traumatic injury no evidence to suggest infectious etiology and no clinical suspicion for underlying thrombophlebitis for DVT. Patient given combination analgesics to include lidocaine patch was discharged home in stable condition with strict return precautions regarding erythema/induration/fever/chills. Differential Diagnosis Differential Diagnoses: The differential diagnosis associated with the presentation includes Please see the discussion above Lab Data [facility] Lab Attestation statement: I reviewed the patient's lab results. Please see the discussion above 08/12/22 08:04 08/12/22 08:04 Labs: Lab Results 08/12/22 08/12/22 Range/Units 08:04 08:04 WBC 6.4 (4.8-10.8) X10*3/uL RBC 4.80 (4.20-5.50) X10*6/uL Hgb 13.5 (12.0-16.0) g/dl Hct 41.8 (37.0-47.0) % MCV 87.1 (80.0-98.0) fL MCH 28.1 (27.0-33.0) pg MCHC 32.3 (31.0-35.0) g/dl RDW 12.5 (11.0-16.0) % Plt Count 162 (160-400) X10*3/uL MPV 11.4 (9.4-12.3) fL Absolute Nucleated RBC 0.000 (0.0-0.012) X10*3/uL Nucleated RBC % (auto) 0.0 (0.0-0.2) /100WBC Sodium 141 (135-145) mmol/L Potassium 4.1 (3.3-5.1) mmol/L Chloride 107 (96-108) mmol/L Carbon Dioxide 26 (22-29) mmol/L Anion Gap 12 (12-20) BUN 19 H (9-16) mg/dL Creatinine 0.79 (0.5-1.4) mg/dL Estim Creat Clear Calc 71.7 Estimated GFR > 60 Random Glucose 242 H (60-115) mg/dL Calcium 9.3 (8.4-10.2) mg/dL External Record Review External record reviewed: Outpatient record and Prior outpatient labs Chronic Conditions Patient?s care impacted by: Diabetes Discharge Plan Discharge Clinical Impression: Muscle strain Patient Disposition: Home, Self-Care Instructions: Muscle Strain (ED) Additional Instructions: 1. Reanudar todos los medicamentos caseros seg?n lo prescrito. 2. Tylenol 1000 mg, por v?a oral, cada 6 horas seg?n sea necesario para controlar el dolor. No exceda los 4000 mg dentro de las 24 horas. 3. Ibuprofeno 400 mg, por v?a oral con leche o comida, cada 6 horas seg?n sea necesario para controlar el dolor. 4. Parche de lidoca?na, aplique en el ?mekhi de m?xima sensibilidad josue se indica en el empaque exterior. 5. Yoli un seguimiento con rivero proveedor de atenci?n primaria el lunes por la ma?norma. Regrese a la wanda de emergencias si nota un aumento de la hinchaz?n, enrojecimiento, fiebre, escalofr?os. 1. Resume all home medications as prescribed. 2. Tylenol 1000 mg, orally, every 6 hours as needed for pain control. Do not exceed 4000 mg within 24 hours. 3. Ibuprofen 400 mg, orally with milk or food, every 6 hours as needed for pain control. 4. Lidocaine patch, apply to area of maximal tenderness as directed on the ou tside packaging. 5. Please follow-up with your primary care provider on Monday morning. Please return to the emergency room should you notice any increased swelling, redness, fevers, chills. Prescriptions: No Action (DME) FreeStyle Precision Margarito Strips Strip See Rx Instructions .MEDSUPPLY Qty: 25 6RF Rx Instructions: once a day for calibration (DME) lancets [FreeStyle Lancets] 28 gauge misc See Rx Instructions .ROUTE .MEDSUPPLY Qty: 200 11RF Rx Instructions: 4 times a day (DME) pen needle, diabetic [BD Sondra 2nd Gen Pen Needle] 32 gauge x 5/32 needle See Rx Instructions .MEDSUPPLY Qty: 150 11RF Rx Instructions: four times a day Linzess 290 mcg capsule 290 mcg PO QAM Qty: 30 4RF (DME) toilet seat elevator See Rx Instructions .Route .MEDSUPPLY Qty: 1 0RF Rx Instructions: As directed (DME) Shower Chair Misc See Rx Instructions .Route Qty: 1 0RF Rx Instructions: As directed (DME) FreeStyle Sandra 14 Day Sensor Kit See Rx Instructions .MEDSUPPLY Qty: 2 11RF Rx Instructions: every 14 days insulin lispro [Humalog KwikPen Insulin] 100 unit/mL insulin pen 4 - 6 unit subcut TID Qty: 15 4RF fluticasone propionate [Flonase Allergy Relief] 50 mcg/actuation spray,suspension 1 spray intranasal DAILY Qty: 100 0RF Rx Instructions: administer into each nostril albuterol sulfate [ProAir HFA] 90 mcg/actuation HFA aerosol inhaler 2 puff inhalation Q4-6H PRN (Reason: shortness of breath or wheezing) Qty: 8.5 0RF (DME) heating pads Pad See Rx Instructions .Route Qty: 1 0RF Rx Instructions: As directed canagliflozin 100 mg tablet 100 mg PO DAILY 30 Days Qty: 30 6RF cholecalciferol (vitamin D3) [Vitamin D3] 25 mcg (1,000 unit) tablet 25 mcg PO DAILY 90 Days Qty: 90 3RF montelukast 10 mg tablet 10 mg PO DAILY Qty: 90 3RF albuterol sulfate [Ventolin HFA] 90 mcg/actuation HFA aerosol inhaler 2 puff inhalation Q6H PRN (Reason: shortness of breath or wheezing) 30 Days Qty: 8 1RF naproxen 500 mg tablet 500 mg PO BID PRN (Reason: pain) Qty: 20 0RF albuterol sulfate 2.5 mg /3 mL (0.083 %) solution for nebulization 2.5 mg inhalation Q4-6H PRN (Reason: bronchospasm) Qty: 75 0RF cyclobenzaprine 10 mg tablet 10 mg PO TID PRN (Reason: muscle spasm) Qty: 14 0RF lidocaine 5 % adhesive patch,medicated 1 patch topical DAILY Qty: 15 0RF Rx Instructions: leave on most painful area for up to 12 hrs flu vacc [id number] 6mos up(PF) 60 mcg (15 mcg x 4)/0.5 mL syringe 0.5 ml IM ONCE Qty: 0.5 0RF zolpidem 5 mg tablet 5 mg PO BEDTIME PRN lorazepam 0.5 mg tablet 0.5 mg PO DAILY PRN sertraline 100 mg tablet 100 mg PO DAILY hydrochlorothiazide 12.5 mg tablet 12.5 mg PO QAM Qty: 90 2RF Zyrtec 10 mg capsule 10 mg PO DAILY PRN (Reason: allergy symptoms) Qty: 30 0RF cyanocobalamin (vitamin B-12) 500 mcg tablet,disintegrating 500 mcg sublingual DAILY 90 Days Qty: 90 1RF metoclopramide HCl 5 mg tablet 5 mg PO DAILY 90 Days Qty: 90 3RF pioglitazone 30 mg tablet 30 mg PO DAILY 90 Days Qty: 90 1RF insulin glargine [Lantus Solostar U-100 Insulin] 100 unit/mL (3 mL) insulin pen 35 unit subcut DAILY 90 Days Qty: 31.5 1RF atorvastatin 40 mg tablet 40 mg PO BEDTIME 90 Days Qty: 90 0RF cefuroxime axetil 250 mg tablet 250 mg PO BID Qty: 14 0RF clotrimazole-betamethasone 1-0.05 % cream 1 appl topical BID 5 Days Qty: 45 0RF pantoprazole 40 mg tablet,delayed release (DR/EC) 40 mg PO DAILY Qty: 90 2RF Rx Instructions: take one tablet half an hour before breakfast famotidine [Pepcid] 20 mg tablet 20 mg PO BEDTIME Qty: 90 3RF bisacodyl [Dulcolax (bisacodyl)] 5 mg tablet,delayed release (DR/EC) 10 mg PO BEDTIME Qty: 180 4RF docusate sodium 100 mg capsule 100 mg PO BEDTIME Qty: 90 3RF polyethylene glycol 3350 [Miralax] 17 gram/dose powder 17 g PO DAILY 30 Days Qty: 510 3RF (DME) blood-glucose meter [FreeStyle Lite Meter] Kit See Rx Instructions .ROUTE .MEDSUPPLY Qty: 1 0RF Rx Instructions: 4x/day (DME) FreeStyle Lite Strips Strip See Rx Instructions .ROUTE .MEDSUPPLY Qty: 150 11RF Rx Instructions: As directed four times a day (DME) lancets 28 gauge misc See Rx Instructions topical TID Qty: 100 11RF Rx Instructions: As directed 4 x/day (DME) FreeStyle Sandra 14 Day [place] Misc See Rx Instructions .ROUTE .MEDSUPPLY Qty: 1 11RF Rx Instructions: As directed every 2 weeks Referrals: Norma Lopes MD [Primary Care Provider] - Print Language: Croatian
[2022-08-12] MEDS: Lidocaine 4 % Patch ADH..PATCH 1 PATCH TRANSDERMA (09:10)
[2022-08-12] MEDS: Acetaminophen 325 MG TABLET 975 MG PO (09:10)
[2022-08-12] MEDS: Ibuprofen 400 MG TABLET PO (09:10)
--- NOTE | 2022-08-12 09:15 | PC.NURSE ---
nad, medicated as ordered for l leg pain
== END 2022-08-12 09:15 | disposition home or self-care (01) ==
PROVIDERS: Emergency Provider Student in an Organized Health Care Education/Training Program; PCP Internal Medicine
DX: M79.652 Pain in left thigh (principal); Z79.899 Other long term (current) drug therapy
CPT/HCPCS: 36415; 80048; 85027; 99283; 99284

== ENCOUNTER 2022-08-29 08:14 | Outpatient (REF) | payer OTHER, SELFPAY ==
[2022-08-29 10:03] LABS: Lipase 33 U/L (8-78)
[2022-08-29 12:20] LABS: Appearance Urine Clear; Color Urine Yellow; Glucose Urine UA Negative (Negative); Leukocyte Esterase Urine Negative (Negative); Nitrite Urine Negative (Negative); PH 6.5 (5.0-9.0); Urine Blood Negative (Negative); Urine Ketones Negative (Negative); Urine Protein Negative (Neg-Trace)
== END 2022-08-29 08:15 | disposition home or self-care (01) ==
LOC: HO.LAB 08:14
PROVIDERS: PCP Internal Medicine; Visit Provider Nurse Practitioner Family
DX: R10.9 Unspecified abdominal pain (principal); R30.0 Dysuria; K21.9 Gastro-esophageal reflux disease without esophagitis; R14.0 Abdominal distension (gaseous); K58.2 Mixed irritable bowel syndrome
CPT/HCPCS: 36415; 81003; 83690; 99212

== ENCOUNTER 2022-09-15 07:37 | Emergency (ER) | payer OTHER, SELFPAY ==
--- NOTE | ~2022-09-15 | XR_ITS ---
EXAMINATION: XR CHEST CLINICAL INFORMATION: Cough COMPARISON: April 2022. TECHNIQUE: 2 views of the chest were obtained. FINDINGS: Small linear atelectatic changes are observed toward the right base. No new dominant consolidations. Pulmonary vascularity appears to be stable. No pneumothorax. Pleural surfaces appear to be clear. Scattered thoracic spondylitic changes noted. XR/XR chest 2V IMPRESSION: Small linear atelectatic changes toward the right base. No dominant consolidations or effusions.
[2022-09-15 07:42] VITALS: BP 132/64; PULSE 88; RESP 19; TEMP 36.1; O2SAT 98; BMI 56.4
[2022-09-15 08:07] VITALS: O2SAT 98
[2022-09-15 08:14] VITALS: BP 122/64; PULSE 82; RESP 14; TEMP 36.8; O2SAT 98
--- NOTE | 2022-09-15 08:14 | ED_ITS ---
HPI - General Adult General Chief complaint: Upper Respiratory Symptoms Stated complaint: Cough Time Seen by Provider: 09/15/22 08:11 Source: patient and lab rep Mode of arrival: ambulatory Limitations: language barrier History of Present Illness HPI narrative: Patient is a 56 year old assigned female at with a history of asthma presenting to the emergency department today with persistent cough. Patient s tates that she was evaluated for this once before and given steroids and antibiotics however, the cough is persistenting even after finishing the steroids and antibiotics. Patient denies any dizziness, lightheadedness, abdominal pain, nausea, vomiting, fever, chills, blurry vision, double vision, loss of vision, chest pain, difficulty breathing, shortness of breath, back pain, night sweats, pain with urination, increased urinary frequency, increased urinary urgency, blood in her urine or stool, syncope or a near syncopal episode, recent trauma or falls, bowel incontinence, bladder incontinence, bowel retention, bladder retention, or any other complaints at this time. Onset (ago): week(s) (1) Severity: mild Severity scale (1-10): 3 Relieving factors: none Exacerbating factors: none Associated symptoms: cough Treatments prior to arrival: none Related Data Home Medications Medication Instructions Recorded Confirmed lorazepam 0.5 mg tablet 0.5 mg PO DAILY PRN 04/16/20 09/07/22 zolpidem 5 mg tablet 5 mg PO BEDTIME PRN 04/16/20 09/07/22 sertraline 100 mg tablet 100 mg PO DAILY 06/17/20 09/07/22 Previous Rx's Medication Instructions Recorded clotrimazole-betamethasone 1 1 appl topical BID 5 days #45 grams 11/25/20 %-0.05 % topical cream FreeStyle Precision Margarito Strips #25 ea 01/18/21 (blood sugar diagnostic) lancets 28 gauge (FreeStyle #200 ea 04/14/21 Lancets) pen needle, diabetic 32 gauge x #150 ea 04/15/21 (BD Sondra 2nd Gen Pen Needle) linaclotide 290 mcg capsule 290 mcg PO QAM #30 caps 05/25/21 (Linzess) Shower Chair #1 ea 08/02/21 toilet seat elevator #1 ea 08/02/21 blood sugar diagnostic (FreeStyle #150 ea 09/07/21 Lite Strips) blood-glucose meter (FreeStyle #1 ea 09/07/21 Lite Meter kit) flash glucose scanning reader #1 ea 09/07/21 (FreeStyle Sandra 14 Day Walton) lancets 28 gauge #100 ea 09/07/21 flash glucose sensor (FreeStyle #2 ea 02/09/22 Sandra 14 Day Sensor kit) insulin lispro 100 unit/mL 4 - 6 unit (0.04 - 0.06 mL) subcut 02/23/22 subcutaneous pen (Humalog KwikPen TID #15 mL (U-100) Insulin) fluticasone propionate 50 1 spray intranasal DAILY #100 mL 03/20/22 mcg/actuation nasal spray,suspension (Flonase Allergy Relief) cetirizine 10 mg capsule (Zyrtec) 10 mg PO DAILY PRN allergy 04/26/22 symptoms #30 caps cyanocobalamin (vitamin B-12) 500 500 mcg sublingual DAILY 90 days 04/26/22 mcg disintegrating #90 tabs tablet,sublingual hydrochlorothiazide 12.5 mg tablet 12.5 mg PO QAM #90 tabs 04/26/22 metoclopramide HCl 5 mg tablet 5 mg PO DAILY 90 days #90 tabs 04/26/22 pioglitazone 30 mg tablet 30 mg PO DAILY 90 days #90 tabs 04/26/22 albuterol sulfate 90 mcg/actuation 2 puff inhalation Q4-6H PRN 05/25/22 aerosol inhaler (ProAir HFA) shortness of breath or wheezing #8.5 grams cyclobenzaprine 10 mg tablet 10 mg PO TID PRN muscle spasm #14 05/30/22 tabs lidocaine 5 % topical patch 1 patch topical DAILY #15 ea 05/30/22 heating pads #1 ea 05/31/22 canagliflozin 100 mg tablet 100 mg PO DAILY 30 days #30 tabs 06/20/22 cholecalciferol (vitamin D3) 25 25 mcg PO DAILY 90 days #90 tabs 06/20/22 mcg (1,000 unit) tablet (Vitamin D3) montelukast 10 mg tablet 10 mg PO DAILY #90 tabs 06/22/22 Ventolin HFA 90 mcg/actuation 2 puff inhalation Q6H PRN 06/27/22 aerosol inhaler (albuterol sulfate) shortness of breath or wheezing 30 days #8 grams bisacodyl 5 mg tablet,delayed 10 mg PO BEDTIME #180 tabs 06/28/22 release (Dulcolax (bisacodyl)) docusate sodium 100 mg capsule 100 mg PO BEDTIME #90 caps 06/28/22 famotidine 20 mg tablet (Pepcid) 20 mg PO BEDTIME #90 tabs 06/28/22 pantoprazole 40 mg tablet,delayed 40 mg PO DAILY #90 tabs 06/28/22 release polyethylene glycol 3350 17 17 g PO DAILY 30 days #510 grams 06/28/22 gram/dose oral powder (Miralax) Lantus Solostar U-100 Insulin 100 35 unit (0.35 mL) subcut DAILY 90 07/18/22 unit/mL (3 mL) subcutaneous pen days #31.5 mL (insulin glargine) atorvastatin 40 mg tablet 40 mg PO BEDTIME 90 days #90 tabs 07/18/22 naproxen 500 mg tablet 500 mg PO BID PRN pain #20 tabs 07/24/22 simethicone 125 mg capsule 125 mg PO BID-QID PRN abdominal 08/29/22 distention #120 caps albuterol sulfate 2.5 mg/3 mL 2.5 mg (3 mL) inhalation Q4-6H PRN 09/07/22 (0.083 %) solution for nebulization bronchospasm #75 mL azithromycin 250 mg tablet See Rx Instructions PO .COMPLEX #6 09/07/22 tabs prednisone 20 mg tablet 40 mg PO DAILY 5 days #10 tabs 09/07/22 benzonatate 100 mg capsule 100 mg PO BID PRN cough 5 days #10 09/12/22 caps benzonatate 100 mg capsule 100 mg PO BID PRN cough 7 days #14 09/15/22 caps prednisone 20 mg tablet 20 mg PO DAILY 7 days #7 tabs 09/15/22 Allergies Allergy/AdvReac Type Severity Reaction Status Date / Time Penicillins Allergy Mild RASH/DYSPNE Verified 09/15/22 07:46 A metformin AdvReac Intermediate stomach Verified 09/15/22 07:46 upset Review of Systems Constitutional: Constitutional: Reports no additional constitutional complaints, Denies chills, Denies fever(s) and Denies night sweats Eyes: Eyes: Reports no additional eye complaints, Denies blurry vision, Denies change in vision, Denies diplopia, Denies eye discharge, Denies loss of vision and Denies eye pain ENT: Denies dizziness Cardiovascular: Cardiovascular: Reports no additional cardiovascular complaints, Denies chest pain, Denies lightheadedness, Denies Loss of Consciousness and Denies dyspnea Respiratory: Respiratory: Reports no additional respiratory complaints, Reports cough and Denies dyspnea Gastrointestinal: Gastrointestinal: Reports no additional gastrointestinal co mplaints, Denies abdominal pain, Denies melena, Denies hematochezia, Denies change in bowel habits and Denies change in stool character Genitourinary: Genitourinary: Denies hematuria, Denies urinary frequency, Denies dysuria, Denies urinary incontinence, Denies urinary hesitancy and Denies urinary urgency Musculoskeletal: Musculoskeletal: Reports no additional musculoskeletal complaints, Denies numbness and Denies tingling Neurologic: Denies dizziness, Denies loss of vision, Denies numbness and Denies tingling Psychiatric: Psychiatric: Reports no additional psychiatric complaints Endocrine: Endocrine: Reports no additional endocrine complaints Hematologic/Lymphatic: Hematologic/Lymphatic: Reports no additional hematologic/lymphatic complaints Allergic/Immunologic: Allergic/Immunologic: Reports no additional allergic/immunologic complaints [facility] Past Medical History Attestation statement: The following information was validated with the patient. 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 Moderate asthma Moderate recurrent major depression Overweight Palpitations Pernicious anemia Polyarthralgia Tubular adenoma Type 2 diabetes mellitus with diabetic polyneuropathy Umbilical hernia Surgical History History of carpal tunnel release History of cholecystectomy History of endometrial ablation History of foot surgery History of surgery on arm History of tubal ligation History of umbilical hernia repair Family History Family History Mother Breast cancer Paternal Grandmother Breast cancer Brother Colon cancer Family/Other FH: mental illness Mental health disorder Social History Social History Household Members: Children Housing: Apartment Alcohol intake: never Patient Tobacco Use Status: Never used Tobacco Smoked in Last 30 Days: No e-Cigarette/Vaping Use: Never Used Second Hand Smoke Exposure: No Use of substances other than those prescribed or required for medical reasons: No Advance Directives: No Advance Directives Information Provided: Yes service: No Current occupational status: disabled Cognitive needs: No Hearing needs: No Vision needs: Yes Physical Exam ED Vital Signs: Vital Signs - 24 hr 09/15/22 07:42 09/15/22 08:07 09/15/22 08:14 Temperature 97 F 98.2 F Pulse Rate 88 82 Respiratory Rate 19 14 Blood Pressure 132/64 122/64 Pulse Oximetry 98 98 98 Oxygen Delivery Method Room Air Room Air Room Air 09/15/22 09:23 09/15/22 10:27 Temperature Pulse Rate 80 90 Respiratory Rate 18 20 Blood Pressure 136/60 Pulse Oximetry 100 Oxygen Delivery Method Aerosol Mask BMI result Body Mass Index 56.4 Const General: cooperative, no acute distress, alert and awake Nutritional Appearance: well nourished Orientation/consciousness: patient oriented x3 Limitations: no limitations HENMT Head: Yes normal to inspection and Yes atraumatic Ears: hearing grossly normal bilaterally and external ears normal General nose exam: Normal external nose present, no nasal discharge noted and no epistaxis Face and sinus: Yes normal facial exam, No abrasion and No laceration Mouth: Normal oral and palatal mucosa present, no drooling and no muffled voice Eyes General: appearance normal, both eyes and all related structures Periorbital: periorbital findings normal Eyelids: Yes eyelids normal Conjunctivae: conjunctivae normal Pupils: Equal, round and reactive pupils present EOM: EOMs intact bilaterally Neck Neck: Yes normal visual inspection, Yes full ROM and Yes no lymphadenopathy Chest Chest palpation & inspection: normal inspection of the chest Resp Effort & Inspection: normal respiratory effort and able to speak in complete sentences Auscultation: wheezes throughout Cardio Rate: regular rate Rhythm: regular rhythm GI Inspection: Yes normal to inspection Palpation (GI): Soft to palpation, not firm, nontender and no guarding Neuro General: patient oriented x3 and moves all extremities Cranial nerves: Yes Equal, round and reactive pupils present Cognition (Neuro): normal cognition Motor exam (neuro): 5/5 motor strength present throughout Sensory Exam: Normal double simultaneous stimulation for sensation Coordination: [id number] test normal Extrem General: Yes normal to inspection, Yes full ROM and Yes capillary refill normal Psych Appearance: grossly normal Mental Status: mental status grossly normal Affect: normal affect Attitude: cooperative Thought process: Normal thought process present Thought content: Normal thought content present Insight: Good insight present (Psych) Medications Administered Discontinued Medications Generic Name Dose Route Start Last Admin Trade Name Veronica PRN Reason Stop Dose Admin Albuterol Sulfate 10 mg 09/15/22 10:07 09/15/22 10:18 Albuterol Sulfate (0.083%) 2.5 Mg/3 Ml Vial.Neb INHALE 09/15/22 10:08 10 mg ONCE ONE Administration Albuterol Sulfate 5 mg/ 0 mg 09/15/22 09:10 09/15/22 09:22 Ipratropium [place] 0.5 mg INHALE 09/15/22 09:11 2.5 each ONCE ONE Administration Methylprednisolone Sodium Succinate 60 mg 09/15/22 10:07 09/15/22 10:23 Methylprednisolone Sod Succ 125 Mg/2 Ml Vial IVPUSH 09/15/22 10:08 60 mg ONCE ONE Administration Medical Decision Making Medical Decision Making [facility] Narrative: Patient is a 56 year old assigned female at with a history of asthma presenting to the emergency department today with a cough. Patient's physical exam showed wheezing throughout but was otherwise unremarkable. Patient's blood work was unremarkable. Patient's EKG was unremarkable. Patient's chest x-ray showed no acute process. I explained my physical exam findings as well as all test results to the patient and the patient's daughter. I answered all questions asked by the patient and the patient's daughter. Patient received IV solu-medrol and multiple breathing treatments which she stated helped her symptoms signif icantly. I stressed the importance of the patient taking her medication as prescribed. I stressed the importance of the patient following up with her primary care provider and a sales project manager. I stressed the importance of the patient returning to the emergency department immediately if her symptoms were to worsen or if she were to develop any dizziness, shortness of breath, difficulty breathing, chest pain, blurry vision, loss of vision, nausea, vomiting, abdominal pain, fever, chills, back pain, or any other complaints. Patient and the patient's daughter verbalized agreement and understanding with this treatment plan and discharge. Differential Diagnosis Differential Diagnoses: The differential diagnosis associated with the pres entation includes asthma exacerbation Lab Data MDM Lab Attestation statement: I reviewed the patient's lab results. 09/15/22 08:40 09/15/22 08:40 Labs: Lab Results 09/15/22 09/15/22 09/15/22 Range/Units 08:40 08:40 08:40 WBC 8.7 (4.8-10.8) X10*3/uL RBC 4.99 (4.20-5.50) X10*6/uL Hgb 14.0 (12.0-16.0) g/dl Hct 43.6 (37.0-47.0) % MCV 87.4 (80.0-98.0) fL MCH 28.1 (27.0-33.0) pg MCHC 32.1 (31.0-35.0) g/dl RDW 12.9 (11.0-16.0) % Plt Count 146 L (160-400) X10*3/uL MPV 11.5 (9.4-12.3) fL Immature Gran % (Auto) 0.6 H (0.0-0.4) % Neut % (Auto) 55.0 (45-73) % Lymph % (Auto) 33.9 (20-40) % Mclennan % (Auto) 8.9 (2-11) % Eos % (Auto) 1.1 (0-4) % Baso % (Auto) 0.5 (0-2) % Lymph # (Auto) 3.0 (1.2-4.9) X10*3/uL Mclennan # (Auto) 0.8 (0.1-1.2) X10*3/uL Eos # (Auto) 0.1 (0.0-0.4) X10*3/uL Baso # (Auto) 0.0 (0.0-0.2) X10*3/uL Abs Immat Gran (auto) 0.05 H (0.00-0.03) X10*3/uL Absolute Neuts (auto) 4.8 (2.0-8.3) x10*3/uL Absolute Nucleated RBC 0.000 (0.0-0.012) X10*3/uL Nucleated RBC % (auto) 0.0 (0.0-0.2) /100WBC D-Dimer High Sensitivty < 150 NG/ML Sodium 141 (135-145) mmol/L Potassium 4.0 (3.3-5.1) mmol/L Chloride 101 (96-108) mmol/L Carbon Dioxide 30 H (22-29) mmol/L Anion Gap 14 (12-20) BUN 17 H (9-16) mg/dL Creatinine 0.87 (0.5-1.4) mg/dL Estim Creat Clear Calc 96.9 Estimated GFR > 60 Random Glucose 237 H (60-115) mg/dL Calcium 9.6 (8.4-10.2) mg/dL Total Bilirubin 0.4 (0.0-1.0) mg/dL AST 15 (5-31) U/L ALT 24 (0-31) U/L Alkaline Phosphatase 61 (39-117) U/L Troponin I High Sens (<3.5-17.0) ng/L B-Natriuretic Peptide (<100) pg/mL Total Protein 6.9 (6.5-8.0) g/dL Albumin 3.9 (3.5-5.0) g/dL Influenza Type A (PCR) (Negative) Influenza Type B (PCR) (Negative) RSV RNA Qual (PCR) (Negative) SARS-CoV-2 RNA (RT-PCR) (Negative) 09/15/22 09/15/22 09/15/22 Range/Units 08:40 08:40 08:41 WBC (4.8-10.8) X10*3/uL RBC (4.20-5.50) X10*6/uL Hgb (12.0-16.0) g/dl Hct (37.0-47.0) % MCV (80.0-98.0) fL MCH (27.0-33.0) pg MCHC (31.0-35.0) g/dl RDW (11.0-16.0) % Plt Count (160-400) X10*3/uL MPV (9.4-12.3) fL Immature Gran % (Auto) (0.0-0.4) % Neut % (Auto) (45-73) % Lymph % (Auto) (20-40) % Mclennan % (Auto) (2-11) % Eos % (Auto) (0-4) % Baso % (Auto) (0-2) % Lymph # (Auto) (1.2-4.9) X10*3/uL Mclennan # (Auto) (0.1-1.2) X10*3/uL Eos # (Auto) (0.0-0.4) X10*3/uL Baso # (Auto) (0.0-0.2) X10*3/uL Abs Immat Gran (auto) (0.00-0.03) X10*3/uL Absolute Neuts (auto) (2.0-8.3) x10*3/uL Absolute Nucleated RBC (0.0-0.012) X10*3/uL Nucleated RBC % (auto) (0.0-0.2) /100WBC D-Dimer High Sensitivty NG/ML Sodium (135-145) mmol/L Potassium (3.3-5.1) mmol/L Chloride (96-108) mmol/L Carbon Dioxide (22-29) mmol/L Anion Gap (12-20) BUN (9-16) mg/dL Creatinine (0.5-1.4) mg/dL Estim Creat Clear Calc Estimated GFR Random Glucose (60-115) mg/dL Calcium (8.4-10.2) mg/dL Total Bilirubin (0.0-1.0) mg/dL AST (5-31) U/L ALT (0-31) U/L Alkaline Phosphatase (39-117) U/L Troponin I High Sens < 3.5 (<3.5-17.0) ng/L B-Natriuretic Peptide 31 (<100) pg/mL Total Protein (6.5-8.0) g/dL Albumin (3.5-5.0) g/dL Influenza Type A (PCR) NEGATIVE (Negative) Influenza Type B (PCR) NEGATIVE (Negative) RSV RNA Qual (PCR) NEGATIVE (Negative) SARS-CoV-2 RNA (RT-PCR) NEGATIVE (Negative) Independent Interpretation I performed an independent interpretation of an: EKG Interpretation: Vent. Rate: 083 BPM ? ? Atrial Rate: 083 BPM P-R Int: 150 ms? QRS Dur: 078 ms QT Int: 384 ms ? ? ? P-R-T Axes: 051 059 048 degrees QTc Int: 451 ms ? Normal sinus rhythm Normal ECG When compared with ECG of 07-APR-2022 09:22, No significant change was found DD/ [id number] Radiology Impression Radiologist Impression: My interpretation is in agreement with the radiologist's impression of this imaging study. EXAMINATION: XR CHEST CLINICAL INFORMATION: Cough COMPARISON: April 2022. TECHNIQUE: 2 views of the chest were obtained. FINDINGS: Small linear atelectatic changes are observed toward the right base. No new dominant consolidations. Pulmonary vascularity appears to be stable. No pneumothorax. Pleural surfaces appear to be clear. Scattered thoracic spondylitic changes noted. XR/XR chest 2V IMPRESSION: Small linear atelectatic changes toward the right base. ? No dominant consolidations or effusions. Dictated By: Jhoan Driscoll Signed By: Electronically signed by Jhoan Driscoll 09/15/22 0923 Critical Care Time Critical Care Time Critical Care Time: Yes Total Critical Care Time: 30 Attestation: I spent 30 minutes of Critical Care Time with this patient. This does not include time spent on separately reported billable procedures. Discharge Plan Discharge Clinical Impression: Asthma Patient Disposition: Home, Self-Care Instructions: Asthma (ED) Additional Instructions: Follow up with your primary care provider. Return to the emergency department immediately if your symptoms worsen or if you develop any dizziness, shortness of breath, difficulty breathing, chest pain, blurry vision, loss of vision, nausea, vomiting, abdominal pain, fever, chills, back pain, or any other complaints. Yoli un seguimiento con rivero proveedor de atenci?n primaria. Regrese al departamento de emergencias de inmediato si chaparro s?ntomas empeoran o si presenta mareos, falta de aire, dificultad para respirar, dolor de pecho, visi?n borrosa, p?rdida de la visi?n, n?useas, v?mitos, dolor abdominal, fiebre, escalofr?os, dolor de espalda o cualquier otras quejas. Prescriptions: New benzonatate 100 mg capsule 100 mg PO BID PRN (Reason: cough) 7 Days Qty: 14 0RF prednisone 20 mg tablet 20 mg PO DAILY 7 Days Qty: 7 0RF No Action (DME) FreeStyle Precision Margarito Strips Strip See Rx Instructions .MEDSUPPLY Qty: 25 6RF Rx Instructions: once a day for calibration (DME) lancets [FreeStyle Lancets] 28 gauge misc See Rx Instructions .ROUTE .MEDSUPPLY Qty: 200 11RF Rx Instructions: 4 times a day (DME) pen needle, diabetic [BD Sondra 2nd Gen Pen Needle] 32 gauge x 5/32 needle See Rx Instructions .MEDSUPPLY Qty: 150 11RF Rx Instructions: four times a day Linzess 290 mcg capsule 290 mcg PO QAM Qty: 30 4RF (DME) toilet seat elevator See Rx Instructions .Route .MEDSUPPLY Qty: 1 0RF Rx Instructions: As directed (DME) Shower Chair Misc See Rx Instructions .Route Qty: 1 0RF Rx Instructions: As directed (DME) FreeStyle Sandra 14 Day Sensor Kit See Rx Instructions .MEDSUPPLY Qty: 2 11RF Rx Instructions: every 14 days insulin lispro [Humalog KwikPen Insulin] 100 unit/mL insulin pen 4 - 6 unit subcut TID Qty: 15 4RF fluticasone propionate [Flonase Allergy Relief] 50 mcg/actuation spray,suspension 1 spray intranasal DAILY Qty: 100 0RF Rx Instructions: administer into each nostril albuterol sulfate [ProAir HFA] 90 mcg/actuation HFA aerosol inhaler 2 puff inhalation Q4-6H PRN (Reason: shortness of breath or wheezing) Qty: 8.5 0RF (DME) heating pads Pad See Rx Instructions .Route Qty: 1 0RF Rx Instructions: As directed canagliflozin 100 mg tablet 100 mg PO DAILY 30 Days Qty: 30 6RF cholecalciferol (vitamin D3) [Vitamin D3] 25 mcg (1,000 unit) tablet 25 mcg PO DAILY 90 Days Qty: 90 3RF montelukast 10 mg tablet 10 mg PO DAILY Qty: 90 3RF albuterol sulfate [Ventolin HFA] 90 mcg/actuation HFA aerosol inhaler 2 puff inhalation Q6H PRN (Reason: shortness of breath or wheezing) 30 Days Qty: 8 1RF naproxen 500 mg tablet 500 mg PO BID PRN (Reason: pain) Qty: 20 0RF benzonatate 100 mg capsule 100 mg PO BID PRN (Reason: cough) 5 Days Qty: 10 0RF cyclobenzaprine 10 mg tablet 10 mg PO TID PRN (Reason: muscle spasm) Qty: 14 0RF lidocaine 5 % adhesive patch,medicated 1 patch topical DAILY Qty: 15 0RF Rx Instructions: leave on most painful area for up to 12 hrs flu vacc [id number] 6mos up(PF) 60 mcg (15 mcg x 4)/0.5 mL syringe 0.5 ml IM ONCE Qty: 0.5 0RF zolpidem 5 mg tablet 5 mg PO BEDTIME PRN lorazepam 0.5 mg tablet 0.5 mg PO DAILY PRN sertraline 100 mg tablet 100 mg PO DAILY azithromycin 250 mg tablet See Rx Instructions PO .COMPLEX Qty: 6 0RF Rx Instructions: take 500 mg today (day 1), then 250 mg for 4 days (days 2-5) PO prednisone 20 mg tablet 40 mg PO DAILY 5 Days Qty: 10 0RF albuterol sulfate 2.5 mg /3 mL (0.083 %) solution for nebulization 2.5 mg inhalation Q4-6H PRN (Reason: bronchospasm) Qty: 75 0RF hydrochlorothiazide 12.5 mg tablet 12.5 mg PO QAM Qty: 90 2RF Zyrtec 10 mg capsule 10 mg PO DAILY PRN (Reason: allergy symptoms) Qty: 30 0RF cyanocobalamin (vitamin B-12) 500 mcg tablet,disintegrating 500 mcg sublingual DAILY 90 Days Qty: 90 1RF metoclopramide HCl 5 mg tablet 5 mg PO DAILY 90 Days Qty: 90 3RF pioglitazone 30 mg tablet 30 mg PO DAILY 90 Days Qty: 90 1RF insulin glargine [Lantus Solostar U-100 Insulin] 100 unit/mL (3 mL) insulin pen 35 unit subcut DAILY 90 Days Qty: 31.5 1RF atorvastatin 40 mg tablet 40 mg PO BEDTIME 90 Days Qty: 90 0RF clotrimazole-betamethasone 1-0.05 % cream 1 appl topical BID 5 Days Qty: 45 0RF pantoprazole 40 mg tablet,delayed release (DR/EC) 40 mg PO DAILY Qty: 90 2RF Rx Instructions: take one tablet half an hour before breakfast famotidine [Pepcid] 20 mg tablet 20 mg PO BEDTIME Qty: 90 3RF bisacodyl [Dulcolax (bisacodyl)] 5 mg tablet,delayed release (DR/EC) 10 mg PO BEDTIME Qty: 180 4RF docusate sodium 100 mg capsule 100 mg PO BEDTIME Qty: 90 3RF polyethylene glycol 3350 [Miralax] 17 gram/dose powder 17 g PO DAILY 30 Days Qty: 510 3RF simethicone 125 mg capsule 125 mg PO BID-QID PRN (Reason: abdominal distention) Qty: 120 3RF (DME) blood-glucose meter [FreeStyle Lite Meter] Kit See Rx Instructions .ROUTE .MEDSUPPLY Qty: 1 0RF Rx Instructions: 4x/day (DME) FreeStyle Lite Strips Strip See Rx Instructions .ROUTE .MEDSUPPLY Qty: 150 11RF Rx Instructions: As directed four times a day (DME) lancets 28 gauge misc See Rx Instructions topical TID Qty: 100 11RF Rx Instructions: As directed 4 x/day (DME) FreeStyle Sandra 14 Day Walton Misc See Rx Instructions .ROUTE .MEDSUPPLY Qty: 1 11RF Rx Instructions: As directed every 2 weeks Referrals: Norma Lopes MD [Primary Care Provider] - [facility] [Provider Group] (Call to establish and follow up with a sales project manager. Llame para establecer y hacer seguimiento con un neum?logo.) Stand Alone Forms: Work/School Release Print Language: Botswanan
--- NOTE | 2022-09-15 08:16 | ECG_ITS ---
Test Reason : CHEST PAIN Blood Pressure : / mmHG Vent. Rate : 083 BPM Atrial Rate : 083 BPM P-R Int : 150 ms QRS Dur : 078 ms QT Int : 384 ms P-R-T Axes : 051 059 048 degrees QTc Int : 451 ms Normal sinus rhythm Normal ECG When compared with ECG of 07-APR-2022 09:22, No significant change was found Referred By: Gisell Gill Electronically Signed By:Justin Barrera
--- NOTE | 2022-09-15 08:18 | PC.NURSE ---
Patient has been feeling short of breath for the past 2 weeks and saw her doctor last week who prescribed prednisone to the patient. Patient noticed that her sugars were elevated due to the Prednisone and patient stopped taking the prednisone. Patient has been taking her inhaler and albuterol nebulizer which have not been helpful. Last night patient used her nebulizer but spent the night coughing and came in for evaluation. States that weather can make her breathing worse but this hasn't happened in a while. Patient also lost a grandchild recently and is thinking that there might be an anxiety component.
[2022-09-15 08:46] LABS: MANUAL DIFF FLAG NO
[2022-09-15 08:55] LABS: Basophils Percent Auto 0.5 % (0-2); Eosinophils Absolute Auto 0.1 X10*3/uL (0.0-0.4); Eosinophils Percent Auto 1.1 % (0-4); Hematocrit 43.6 % (37.0-47.0); Imm Gran Abs Auto 0.05 X10*3/uL (0.00-0.03); Imm Gran Pct Auto 0.6 % (0.0-0.4); Lymphocytes Percent Auto 33.9 % (20-40); Mean Corpuscular HGB Conc 32.1 g/dl (31.0-35.0); Mean Corpuscular Hemoglobin 28.1 pg (27.0-33.0); Mean Corpuscular Volume 87.4 fL (80.0-98.0); Mean Platelet Volume 11.5 fL (9.4-12.3); Monocytes Absolute Auto 0.8 X10*3/uL (0.1-1.2); Monocytes Percent Auto 8.9 % (2-11); Neutrophils Absolute Auto 4.8 x10*3/uL (2.0-8.3); Platelet Count 146 X10*3/uL (160-400); Red Blood Count 4.99 X10*6/uL (4.20-5.50); Red Cell Distribution Width 12.9 % (11.0-16.0); White Blood Count 8.7 X10*3/uL (4.8-10.8)
[2022-09-15 09:09] LABS: Alanine Aminotransferase 24 U/L (0-31); Albumin Level 3.9 g/dL (3.5-5.0); Alkaline Phosphatase 61 U/L (39-117); Anion Gap 14 (12-20); Aspartate Amino Transferase 15 U/L (5-31); Bilirubin Total 0.4 mg/dL (0.0-1.0); Blood Urea Nitrogen 17 mg/dL (9-16); Calcium 9.6 mg/dL (8.4-10.2); Carbon Dioxide 30 mmol/L (22-29); Chloride 101 mmol/L (96-108); Creatinine Clr Calc Pharmacy 96.9; Estimated Glomerular Filt Rate > 60; Glucose Random 237 mg/dL (60-115); Sodium 141 mmol/L (135-145); Total Protein 6.9 g/dL (6.5-8.0)
[2022-09-15 09:14] LABS: B Type Natriuretic Peptide 31 pg/mL (<100)
[2022-09-15 09:17] LABS: D Dimer High Sensitivity < 150 NG/ML
[2022-09-15 09:18] LABS: Troponin-I High Sensitivity < 3.5 ng/L (<3.5-17.0)
[2022-09-15 09:23] VITALS: PULSE 80; RESP 18; O2SAT 100
[2022-09-15 09:27] LABS: Influenza A PCR NEGATIVE (Negative); Influenza B PCR NEGATIVE (Negative); Resp Syncy Virus RNA Qual PCR NEGATIVE (Negative); SARS COV2 PCR INHOUSE NEGATIVE (Negative)
--- NOTE | 2022-09-15 10:10 | PC.NURSE ---
pt alert and oriented, skin appropriate for ethnicity, respirations even and unlabored, still wheezing through out all daniels, pt reports not feeling much better. aware
[2022-09-15] MEDS: Albuterol Sulfate (0.083%) 2.5 MG/3 ML VIAL.NEB 10 MG INHALE (10:18)
[2022-09-15] MEDS: methylPREDNISolone Sod Succ 125 MG/2 ML VIAL 60 MG IVPUSH (10:23)
[2022-09-15 10:27] VITALS: BP 136/60; PULSE 90; RESP 20; O2SAT 100
== END 2022-09-15 12:09 | disposition home or self-care (01) ==
PROVIDERS: Physician Assistant Medical; Emergency Provider Emergency Medicine; PCP Internal Medicine
DX: J45.909 Unspecified asthma, uncomplicated (principal); R06.2 Wheezing; Z20.822 Contact with and (suspected) exposure to COVID-19; Z20.828 Contact with and (suspected) exposure to other viral communicable diseases; E11.9 Type 2 diabetes mellitus without complications; I10 Essential (primary) hypertension; E78.5 Hyperlipidemia, unspecified; E66.9 Obesity, unspecified; Z68.43 Body mass index [BMI] 50.0-59.9, adult; Z79.4 Long term (current) use of insulin; Z79.899 Other long term (current) drug therapy
CPT/HCPCS: 0241U; 36415; 71046; 80053; 83880; 84484; 85025; 85379; 93005; 94640; 96374; 99284; 99285; J2930

== ENCOUNTER 2022-10-06 10:34 | Outpatient (REF) | payer OTHER, SELFPAY ==
--- NOTE | ~2022-10-06 | MM_ITS ---
EXAMINATION: BONE DENSITOMETRY CLINICAL INDICATION: Unspecified menopausal and perimenopausal disorder. COMPARISON: None (current study represents initial baseline exam). TECHNIQUE: Using a Veritext DXA System (software version: 13.1) manufactured by [employer] dual-energy x-ray absorptiometry was performed of the lumbar spine and left hip. The images are of good technical quality. Summary results are attached. FINDINGS: AP SPINE L1-L4: BMD 1.290 g/cm2, Z-score 1.8, T-score 0.9, normal. LEFT FEMUR, NECK: BMD 0.965 g/cm2, Z-score 0.5, T-score -0.5, normal. LEFT FEMUR, TOTAL: BMD 1.074 g/cm2, Z-score 1.2, T-score 0.5, normal. IDENTIFIED RISK FACTORS: Early menopause, secondary osteoporosis. HISTORY OF FRACTURE: None listed. MEDICATIONS: Vitamin D. MM/XR DEXA axial skeleton IMPRESSION: 1. DIAGNOSIS: Normal bone density based on the lowest T-score value of -0.5 in the femoral neck applying World Health Organization criteria. 2. 10-YEAR FRACTURE RISK PREDICTION, FRAX: According to the guidelines, FRAX calculation should only be performed on patients in the osteopenia bone density category. Therefore, FRAX was not performed on this patient. 3. Treatment Recommendations: NOF guidelines recommend consideration for treatment in postmenopausal women and men age 50 and older presenting with the following: -A hip or vertebral (clinical or morphometric) fracture. -T-score less than or equal to -2.5 at the femoral neck or spine after appropriate evaluation to exclude secondary causes. -Low bone mass at the hip or spine and a 10-year fracture probability by FRAX of greater than or equal to 3% for hip fracture or greater than or equal to 20% for major osteoporotic fracture based on the [place] adapted WHO algorithm. 4. Other Recommendations: All treatment decisions require clinical judgment and consideration of individual patient factors, including patient preferences, comorbidities, previous drug use, risk factors not captured in the FRAX model (e.g. frailty, falls, vitamin D deficiency, increased bone turnover, interval significant decline in bone density) and possible under or overestimation of fracture risk by FRAX. FUTURE SCAN RECOMMENDATION: People with diagnosed cases of osteoporosis or at high risk for fracture should have regular bone mineral density tests. For patients eligible for Medicare, routine testing is allowed once every 2 years. The testing frequency can be increased to one year for patients who have rapidly progressing disease, those who are receiving or discontinuing medical therapy to restore bone mass, or have additional risk factors.
== END 2022-10-06 10:35 | disposition home or self-care (01) ==
LOC: HO.MAMMO 10:34
PROVIDERS: Visit Provider Internal Medicine
DX: Z13.820 Encounter for screening for osteoporosis (principal); Z78.0 Asymptomatic menopausal state
CPT/HCPCS: 77080

== ENCOUNTER → 2022-10-24 12:44 | Outpatient (BNVA) | payer OTHER, SELFPAY | PROVIDERS: PCP Internal Medicine; Visit Provider Dietitian, Registered | DX: E11.42 Type 2 diabetes mellitus with diabetic polyneuropathy (principal) | CPT/HCPCS: 97803 ==

== ENCOUNTER 2022-10-25 08:15 | Outpatient (REF) | payer OTHER, SELFPAY ==
[2022-10-25 08:32] LABS: MANUAL DIFF FLAG NO
[2022-10-25 08:42] LABS: Basophils Absolute Auto 0.1 X10*3/uL (0.0-0.2); Basophils Percent Auto 0.9 % (0-2); Eosinophils Absolute Auto 0.1 X10*3/uL (0.0-0.4); Eosinophils Percent Auto 1.3 % (0-4); Hematocrit 47.5 % (37.0-47.0); Hemoglobin 15.2 g/dl (12.0-16.0); Imm Gran Abs Auto 0.03 X10*3/uL (0.00-0.03); Imm Gran Pct Auto 0.4 % (0.0-0.4); Lymphocytes Absolute Auto 2.2 X10*3/uL (1.2-4.9); Lymphocytes Percent Auto 28.3 % (20-40); Mean Corpuscular Hemoglobin 28.2 pg (27.0-33.0); Mean Corpuscular Volume 88.1 fL (80.0-98.0); Mean Platelet Volume 12.1 fL (9.4-12.3); Monocytes Absolute Auto 0.7 X10*3/uL (0.1-1.2); Monocytes Percent Auto 8.5 % (2-11); Neutrophils Absolute Auto 4.6 x10*3/uL (2.0-8.3); Neutrophils Percent Auto 60.6 % (45-73); Platelet Count 171 X10*3/uL (160-400); Red Blood Count 5.39 X10*6/uL (4.20-5.50); Red Cell Distribution Width 12.4 % (11.0-16.0); White Blood Count 7.6 X10*3/uL (4.8-10.8)
[2022-10-25 09:33] LABS: Alanine Aminotransferase 32 U/L (0-31); Albumin Level 4.3 g/dL (3.5-5.0); Alkaline Phosphatase 67 U/L (39-117); Anion Gap 13 (12-20); Aspartate Amino Transferase 28 U/L (5-31); Bilirubin Total 0.7 mg/dL (0.0-1.0); Blood Urea Nitrogen 20 mg/dL (9-16); Calcium 9.6 mg/dL (8.4-10.2); Carbon Dioxide 29 mmol/L (22-29); Chloride 104 mmol/L (96-108); Cholesterol 128 mg/dL; Estimated Glomerular Filt Rate > 60; Glucose Fasting 163 mg/dL (60-99); HDL Cholesterol 37 mg/dL; LDL Cholesterol Calculated 71 mg/dl; Sodium 142 mmol/L (135-145); Total Protein 7.3 g/dL (6.5-8.0); Triglycerides 104 mg/dL
[2022-10-25 09:46] LABS: Appearance Urine Clear; Color Urine Yellow; Glucose Urine UA >=1000 mg/dL (Negative); Leukocyte Esterase Urine Negative (Negative); Nitrite Urine Negative (Negative); Specific Gravity - Urine >= 1.030 (1.005-1.025); UMIC TRIGGER UACC YES; Urine Blood Negative (Negative); Urine Ketones Trace mg/dL (Negative); Urine Protein Negative (Neg-Trace)
[2022-10-25 09:51] LABS: Bacteria Urine None Seen (None Seen); Hyaline Casts Urine 0-2 /LPF (0-2); RBC Urine 0-2 /HPF (0-2); Squamous Epithelial Cell Urine 0-2 /HPF (0-2); WBC Urine 0-5 /HPF (0-5)
[2022-10-25 10:05] LABS: Folate 15.8 ng/mL (> or = 4.0); Vitamin B12 827 pg/mL (200-900); Vitamin D 25-OH Total 41.6 ng/mL (>30)
[2022-10-25 10:11] LABS: Creatinine Urine 122.15 mg/dL; Microalbum/Creatinine Ratio Ur 9.8 ug/mg cr
[2022-10-25 14:26] LABS: CT PCR NOT DETECTED (Not Detect.); NG PCR NOT DETECTED (Not Detect.)
== END 2022-10-25 08:16 | disposition home or self-care (01) ==
LOC: HO.LAB 08:15
PROVIDERS: Obstetrics & Gynecology; PCP Internal Medicine; Visit Provider Internal Medicine
DX: E55.9 Vitamin D deficiency, unspecified (principal); E78.5 Hyperlipidemia, unspecified; E53.8 Deficiency of other specified B group vitamins; E11.9 Type 2 diabetes mellitus without complications; R30.0 Dysuria; D64.9 Anemia, unspecified; R10.2 Pelvic and perineal pain; Z20.2 Contact with and (suspected) exposure to infections with a predominantly sexual mode of transmission
CPT/HCPCS: 0353U; 36415; 80053; 80061; 81001; 82043; 82306; 82607; 82746; 85025; 99212

== ENCOUNTER 2022-10-25 09:32 | Outpatient (REF) | payer OTHER, SELFPAY ==
[2022-10-27 04:44] LABS: HPV mRNA E6/E7 rflx Not Detected (Not Detected)
== END 2022-10-25 09:33 | disposition home or self-care (01) ==
LOC: HO.LNP 09:32
PROVIDERS: Visit Provider Obstetrics & Gynecology
DX: Z01.419 Encounter for gynecological examination (general) (routine) without abnormal findings (principal); R30.0 Dysuria
CPT/HCPCS: 87624; 88142

== ENCOUNTER 2022-10-28 08:15 | Outpatient (REF) | payer OTHER, SELFPAY | END 2022-10-28 08:16 | disposition home or self-care (01) | LOC: HO.SH 08:15 | PROVIDERS: Visit Provider Internal Medicine | DX: H90.3 Sensorineural hearing loss, bilateral (principal) | CPT/HCPCS: 92557; 92567; 92593 ==

== ENCOUNTER 2022-10-29 08:49 | Outpatient (REF) | payer OTHER, SELFPAY ==
--- NOTE | ~2022-10-29 | MM_ITS ---
EXAMINATION: MM SCREENING DIGITAL BREAST TOMOSYNTHESIS, BILATERAL CLINICAL INFORMATION: Screening. Asymptomatic. The lifetime risk of breast cancer based on the Tyrer-Cuzick Model is 12%. COMPARISON: Multiple mammography exams, most recent 10/07/2021; left breast ultrasound 10/07/2021. TECHNIQUE: Digital breast tomosynthesis is performed in both the craniocaudal and mediolateral oblique views along with computer-aided detection (CAD). Synthesized 2D images are generated from the tomosynthesis. FINDINGS: There are scattered areas of fibroglandular density (ACR BI-RADS breast composition Category b). There are no significant masses, abnormal calcifications, or other abnormalities. Parenchymal pattern is similar to prior studies. There is no developing density or architectural abnormality. Scattered minor asymmetries are stable. There are scattered grouped benign coarse calcifications and some vascular calcifications in each breast again seen. The axilla and skin contours are unremarkable. No significant changes. MM/MM tomosynthesis screening BI IMPRESSION: No mammographic evidence of malignancy. ASSESSMENT: BI-RADS 2: Benign RECOMMENDATION: Routine annual mammography screening. This patient's information was entered into a reminder system with a target due date for their next mammogram.
== END 2022-10-29 08:50 | disposition home or self-care (01) ==
LOC: HO.MAMMO 08:49
PROVIDERS: PCP Internal Medicine; Referring Provider Obstetrics & Gynecology; Visit Provider Internal Medicine
DX: Z12.31 Encounter for screening mammogram for malignant neoplasm of breast (principal)
CPT/HCPCS: 77063; 77067

== ENCOUNTER → 2022-11-01 14:36 | Outpatient (BNVA) | payer OTHER, SELFPAY | PROVIDERS: PCP Internal Medicine; Visit Provider Internal Medicine Endocrinology, Diabetes & Metabolism | DX: E11.65 Type 2 diabetes mellitus with hyperglycemia (principal); E11.42 Type 2 diabetes mellitus with diabetic polyneuropathy; I10 Essential (primary) hypertension; E66.9 Obesity, unspecified; Z68.28 Body mass index [BMI] 28.0-28.9, adult; Z79.4 Long term (current) use of insulin | CPT/HCPCS: 82947; 99212 ==

== ENCOUNTER → 2022-11-08 10:22 | Outpatient (REF) | payer OTHER, SELFPAY ==
--- NOTE | 2022-11-08 10:25 | CA_ITS ---
Acquisition Time: 2022-11-08 10:26:40 Total Exercise Time: 00:06:21 Test Indications: CHEST PAIN Medications: SEE H Protocol: SANJUANITA Max HR: 173 BPM 106% of Pred: 163 BPM Max BP: 130/080 mmHG Max Work Load: 7.4 METS Exercise stress test exercise 6 min 21 sec of Sanjuanita procotol achieving 84% MPHR, without anginal symptoms, with isolated PVC, with normotensive response to exercise, without EKG changes. Test reviewed with Dr. Hansen. Referred By: Norma Bland Overread By: LUIS LUI
== END ==
LOC: HO.CARD 10:22
PROVIDERS: PCP Internal Medicine; Visit Provider Internal Medicine
DX: R07.9 Chest pain, unspecified (principal)
CPT/HCPCS: 93017

== ENCOUNTER 2022-11-11 14:30 | Outpatient (REF) | payer OTHER, SELFPAY ==
--- NOTE | ~2022-11-11 | US_ITS ---
EXAM: Pelvic Ultrasound CLINICAL INDICATION: Pelvic pain COMPARISON: Pelvic ultrasound 10/05/2021 TECHNIQUE: The pelvis was evaluated using transabdominal and transvaginal imaging. Today's examination is limited due to patient body habitus. FINDINGS: The uterus measures 8.4 x 2.9 x 4.8 cm in longitudinal by AP by transverse dimension. An approximately 2 cm uterine fibroid again noted (previously 2.1 cm). The endometrium was not clearly visualized (reported history of endometrial ablation). The right ovary measures approximately 1.9 x 2.2 x 1.3 cm and is unremarkable. The left ovary was not visualized with certainty. A structure which may represent the left ovary located within the left hemipelvis is normal in appearance measuring 1.7 x 1.6 x 1.0 cm. There is no free fluid in the pelvis. US/US pelvic and transvaginal IMPRESSION: 1. Stable approximately 2 cm uterine fibroid. 2. The endometrium was not clearly visualized (reported history of endometrial ablation).
== END 2022-11-11 14:31 | disposition home or self-care (01) ==
LOC: HO.US 14:30
PROVIDERS: PCP Internal Medicine; Visit Provider Obstetrics & Gynecology
DX: R10.2 Pelvic and perineal pain (principal)
CPT/HCPCS: 76830; 76856

== ENCOUNTER → 2022-11-22 08:25 | Outpatient (BNVA) | payer OTHER, SELFPAY | PROVIDERS: PCP Internal Medicine; Visit Provider Nurse Practitioner Family | DX: K21.9 Gastro-esophageal reflux disease without esophagitis (principal); R14.0 Abdominal distension (gaseous); K58.1 Irritable bowel syndrome with constipation; Z79.899 Other long term (current) drug therapy | CPT/HCPCS: 99212 ==

== ENCOUNTER 2022-11-24 11:52 | Outpatient (REF) | payer OTHER, SELFPAY | END 2022-11-24 11:53 | disposition home or self-care (01) | LOC: HO.HAP 11:52 | PROVIDERS: Visit Provider Internal Medicine | DX: Z46.1 Encounter for fitting and adjustment of hearing aid (principal); H90.3 Sensorineural hearing loss, bilateral | CPT/HCPCS: V5014; V5020 ==

== ENCOUNTER → 2022-11-30 08:59 | Outpatient (BNVA) | payer OTHER, SELFPAY | PROVIDERS: PCP Internal Medicine; Visit Provider Obstetrics & Gynecology | DX: D25.9 Leiomyoma of uterus, unspecified (principal) | CPT/HCPCS: 99212 ==

== ENCOUNTER 2022-12-29 13:10 | Outpatient (REF) | payer OTHER, SELFPAY ==
[2022-12-29 13:57] LABS: Appearance Urine Clear; Color Urine Yellow; Glucose Urine UA >=1000 mg/dL (Negative); Leukocyte Esterase Urine Negative (Negative); Nitrite Urine Negative (Negative); PH 5.5 (5.0-9.0); Specific Gravity - Urine >= 1.030 (1.005-1.025); UMIC TRIGGER UACC YES; Urine Blood Negative (Negative); Urine Ketones Negative (Negative); Urine Protein Negative (Neg-Trace)
[2022-12-29 14:02] LABS: Bacteria Urine None Seen (None Seen); Hyaline Casts Urine 0-2 /LPF (0-2); RBC Urine 0-2 /HPF (0-2); Squamous Epithelial Cell Urine 0-2 /HPF (0-2); WBC Urine 0-5 /HPF (0-5)
[2022-12-29 14:35] LABS: Creatinine Urine 55.29 mg/dL; Microalbum/Creatinine Ratio Ur 10.8 ug/mg cr
[2022-12-29 14:45] LABS: Alanine Aminotransferase 28 U/L (0-31); Albumin Level 4.2 g/dL (3.5-5.0); Alkaline Phosphatase 61 U/L (39-117); Anion Gap 14 (12-20); Aspartate Amino Transferase 24 U/L (5-31); Bilirubin Total 0.4 mg/dL (0.0-1.0); Blood Urea Nitrogen 22 mg/dL (9-16); Calcium 10.2 mg/dL (8.4-10.2); Carbon Dioxide 26 mmol/L (22-29); Chloride 104 mmol/L (96-108); Cholesterol 132 mg/dL; Estimated Glomerular Filt Rate > 60; Glucose Fasting 152 mg/dL (60-99); HDL Cholesterol 41 mg/dL; LDL Cholesterol Calculated 70 mg/dl; Potassium 3.8 mmol/L (3.3-5.1); Sodium 140 mmol/L (135-145); Total Protein 7.4 g/dL (6.5-8.0); Triglycerides 106 mg/dL
[2022-12-29 14:53] LABS: Vitamin D 25-OH Total 45.5 ng/mL (>30)
[2022-12-29 15:06] LABS: Folate 17.1 ng/mL (> or = 4.0); Vitamin B12 408 pg/mL (200-900)
== END 2022-12-29 13:11 | disposition home or self-care (01) ==
LOC: HO.LAB 13:10
PROVIDERS: PCP Internal Medicine; Visit Provider Internal Medicine
DX: E11.9 Type 2 diabetes mellitus without complications (principal); E55.9 Vitamin D deficiency, unspecified; E78.5 Hyperlipidemia, unspecified; E53.8 Deficiency of other specified B group vitamins
CPT/HCPCS: 36415; 80053; 80061; 81001; 82043; 82306; 82607; 82746

== ENCOUNTER 2023-01-09 13:57 | Outpatient (AMB) | payer OTHER, SELFPAY ==
[2023-01-09 14:07] VITALS: BP 120/68; PULSE 76; O2SAT 97; BMI 27.4
--- NOTE | 2023-01-09 14:07 | A.OFFPC_ITS ---
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 Salesperson Flying Squad Language: Occitan Allergies Penicillins Allergy (Mild, Verified 01/09/23 14:16) RASH/DYSPNEA metformin Adverse Reaction (Intermediate, Verified 01/09/23 14:16) stomach upset Medication List - Last Reconciled 01/09/23 by Caleb Carlin PA-C albuterol sulfate 2.5 mg (3 mL) inhalation Q4-6H PRN albuterol sulfate 90 mcg/actuation (ProAir HFA) 2 puffs inhalation Q4-6H PRN atorvastatin 40 mg PO BEDTIME 90 days blood sugar diagnostic (FreeStyle Lite Strips) As directed four times a day blood-glucose meter (FreeStyle Lite Meter kit) use as directed to test blood sugar 4x per day calcium carbonate 600 mg PO BID 90 days canagliflozin 100 mg PO DAILY 30 days cetirizine (Zyrtec) 10 mg PO DAILY PRN cholecalciferol (vitamin D3) (Vitamin D3) 25 mcg PO DAILY 90 days clotrimazole-betamethasone 1-0.05 % 1 appl topical BID 5 days cyanocobalamin (vitamin B-12) 500 mcg sublingual DAILY 90 days docusate sodium 100 mg PO BEDTIME famotidine (Pepcid) 20 mg PO BEDTIME flash glucose scanning reader (FreeStyle Sandra 14 Day [place]) As directed every 2 weeks fluticasone propionate 50 mcg/actuation (Flonase Allergy Relief) 1 spray intranasal DAILY FreeStyle Precision Margarito Strips (blood sugar diagnostic) once a day for calibration NS heating pads As directed hydrochlorothiazide 12.5 mg PO QAM insulin lispro (Humalog KwikPen (U-100) Insulin) 4 - 6 units (0.04 - 0.06 mL) subcut TID lancets (FreeStyle Lancets) 4 times a day Lantus Solostar U-100 Insulin (insulin glargine) 40 units (0.4 mL) subcut DAILY 90 days NS lidocaine 5% 1 patch topical DAILY linaclotide (Linzess) 290 mcg PO QAM lorazepam 0.5 mg PO DAILY PRN metoclopramide HCl 5 mg PO DAILY 90 days montelukast 10 mg PO DAILY nebulizer accessories NEBULIZER FACE MASK ADULT, USE DIRECTED nebulizers (AeroEclipse II Nebulizer) As directed pantoprazole 40 mg PO DAILY pen needle, diabetic (BD Sondra 2nd Gen Pen Needle) four times a day pioglitazone 30 mg PO DAILY 90 days polyethylene glycol 3350 (Miralax) 17 grams PO DAILY 30 days prednisone 50 mg PO DAILY 5 days semaglutide (Ozempic) 0.5 mg (0.8 mL) subcut QWEEK sertraline 100 mg PO DAILY Shower Chair As directed simethicone 125 mg PO BID-QID PRN [toilet seat elevator As directed] Ventolin HFA 90 mcg/actuation (albuterol sulfate) 2 puffs inhalation Q6H PRN 30 days NS zolpidem 5 mg PO BEDTIME PRN Tobacco use date assessed: 09/07/22 HPI Asthma Follow Up HPI Details Patient is a 57-year-old Occitan-speaking female here today for a [facility] low-up visit. Patient has a past medical history significant for moderate persistent asthma, type 2 diabetes, hyperlipidemia. She was seen at the walk-in clinic and October of 2022 for acute asthma exacerbation was given a Z-Juan and nebulizer supplies. She reports that her asthma has been exacerbating as of late due to weather. She would like new nebulizer supplies to do home nebulizer treatments. [facility] Medical History Arthritis B12 deficiency Depression with anxiety Diabetes DM2 (diabetes mellitus, type 2) Dyslipidemia Ear discomfort Ear pain Edema Essential hypertension GERD (gastroesophageal reflux disease) Hearing loss Hearing loss Insomnia half-way (current) use of insulin Moderate asthma Moderate recurrent major depression Overweight Palpitations Pernicious anemia Polyarthralgia Tubular adenoma Type 2 diabetes mellitus with diabetic polyneuropathy Umbilical hernia Surgical History History of carpal tunnel release History of cholecystectomy History of endometrial ablation History of foot surgery History of surgery on arm History of tubal ligation History of umbilical hernia repair Family History Mother Breast cancer Paternal Grandmother Breast cancer Brother Colon cancer Family/Other FH: mental illness Mental health disorder Father CAD (coronary artery disease) Social History Household Members: Children Housing: Apartment Alcohol intake: never Patient Tobacco Use Status: Never used Tobacco e-Cigarette/Vaping Use: Never Used Second Hand Smoke Exposure: No service: No Current occupational status: disabled Cognitive needs: No Hearing needs: No Vision needs: Yes Female Reproductive History Menstrual Age of Menarche: 11 Questionnaire Thrive Questionnaire Date Thrive assessed: 07/18/22 LIANA-7 AMB Questionnaire LIANA-7 Date LIANA - 7 assessed: 07/18/22 Source: Developed by Drs. Hernandez Love, Rebecca Peacock, Kalyan Becker and colleagues, with an educational julio from [employer]. Review of Systems Const Denies headache(s) Eyes Denies loss of vision ENT Denies vertigo, Denies dizziness, Denies headache(s) and Denies sore throat Card Denies chest pain, Denies leg edema and Denies lightheadedness Resp Denies cough, Denies hemoptysis and Denies wheezing GI Denies abdominal pain, Denies melena, Denies constipation, Denies diarrhea and Denies vomiting Denies urinary frequency, Denies dysuria and Denies urinary urgency Musc Denies arthralgias, Denies joint swelling, Denies numbness and Denies tingling Neuro Denies Abnormal speech present, Denies behavioral changes, Denies vertigo, Denies dizziness, Denies headache(s), Denies loss of vision, Denies memory loss, Denies numbness and Denies tingling Psych Denies anxiety, Denies behavioral changes, Denies depression, Denies memory loss and Denies panic attacks Kranthi/Lymph Denies easy bleeding and Denies easy bruising Aller/Immun Denies wheezing Physical exam (Primary Care) Vital Signs: Last Vital Signs Pulse 76 01/09/23 14:07 BP 120/68 01/09/23 14:07 Pulse Ox 97 01/09/23 14:07 Oxygen Delivery Method Room Air 01/09/23 14:07 BMI result Body Mass Index 27.4 Tobacco/Smoking Status: Tobacco use Status Tobacco use date assessed 09/07/22 01/09/23 14:10 Patient Tobacco Use Status Never used Tobacco 01/09/23 14:10 e-Cigarette/Vaping Use Never Used 01/09/23 14:10 Thrive Assessment: Date of Thrive Assessment Date Thrive assessed 07/18/22 01/09/23 14:10 Const General: healthy appearing, no acute distress, alert and awake Nutritional Appearance: well nourished Orientation/consciousness: oriented to person, oriented to place and oriented to time HENMT Ears: TM's normal bilaterally General nose exam: Normal nasal mucous membranes and turbinates present Eyes Conjunctivae: conjunctivae normal Sclerae: sclerae normal Pupils: Equal, round and reactive pupils present Neck Neck: Yes no lymphadenopathy and Yes no JVD Thyroid: Thyroid normal Carotids: no bruits Resp Effort & Inspection: normal respiratory effort and not tachypneic Auscultation: no crackles, no rales, no rhonchi and wheezes Cardio Rate: regular rate Rhythm: regular rhythm Heart sounds: no murmurs and normal S1 and S2 GI Palpation (GI): Soft to palpation, nontender, no hepatomegaly and no splenomegaly Auscultation: normal bowel sounds Skin General skin exam: no rashes or lesions noted and dry skin Neuro General: oriented to person, oriented to place and oriented to time Cranial nerves: Yes Equal, round and reactive pupils present Speech: No Abnormal speech present Gait exam (Neuro): Normal gait present Motor exam (neuro): no tremor noted Extrem Right upper extremity: full ROM Left upper extremity: full ROM Right lower extremity: full ROM; no edema Left lower extremity: full ROM; no edema Psych Mental Status: mental status grossly normal Speech and movement: Normal speech and movement present Affect: normal affect Attitude: cooperative Thought process: Normal thought process present Assessment and Plan Assessment & Plan (1) Asthma: Code(s): J45.909 - Unspecified asthma, uncomplicated Qualifiers: Asthma complication type: with acute exacerbation Asthma persistence: unspecified Asthma severity: moderate Qualified Code(s): J45.901 - Unspecified asthma with (acute) exacerbation Plan: Patient seems to be having a mild asthma exacerbation. No acute distress and SpO2 sats 97. Will supply her with prednisone and restart singular. Advised to continue using her nebulizer treatment at home. Medications: Refilled montelukast 10 mg PO DAILY 90 tabs 3RF J45.901 - Unspecified asthma with (acute) exacerbation prednisone 50 mg PO DAILY 5 days 5 tabs 0RF J45.901 - Unspecified asthma with (acute) exacerbation Discontinued cetirizine (Zyrtec) Discontinued Reason: Doctor's Order 10 mg PO DAILY PRN 30 caps 0RF allergy symptoms H66.90 - Otitis media, unspecified, unspecified ear Coding Level of Care Code Est Pt Level 3 (13751) Diagnoses Asthma J45.901 Asthma complication type: with acute exacerbation Asthma persistence: unspecified Asthma severity: moderate
== END 2023-01-09 14:32 | disposition home or self-care (01) ==
PROVIDERS: PCP Internal Medicine; Visit Provider Physician Assistant
DX: J45.901 Unspecified asthma with (acute) exacerbation (principal)
CPT/HCPCS: 99213

== ENCOUNTER 2023-04-05 08:29 | Outpatient (AMB) | payer OTHER, SELFPAY ==
--- NOTE | 2023-04-05 08:30 | MHC.OFFVIS ---
Intake Vital Signs 04/05/23 08:34 Height 5 ft 2 in Weight 149 lb 7.574 oz BMI 27.3 BP 102/58 L Blood Pressure Location Rt brachial Position Sitting Pulse 74 Pulse Source Pulse Oximeter Intake Visit Reasons: DM, Pt confirmed Intake Note: Patient present today to follow up on Type 2 Diabetes Mellitus. Patient receives DME supplies through: [facility] Last Diabetic Eye exam: approx 6 months Last Podiatry Visit: Does not see a Drawer Waxer, patient is requesting referral. 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 Name: Pauly, Medical Staff Information Interpreted: non-clinical & clinical Accompanied by: Self / Same As Patient Allergies Penicillins Allergy (Mild, Verified 04/05/23 08:56) RASH/DYSPNEA metformin Adverse Reaction (Intermediate, Verified 04/05/23 08:56) stomach upset Medication List - Last Reconciled 04/05/23 by Hernandez Mortensen MD albuterol sulfate 90 mcg/actuation (ProAir HFA) 2 puffs inhalation Q4-6H PRN albuterol sulfate 2.5 mg (3 mL) inhalation Q4-6H PRN atorvastatin 40 mg PO BEDTIME 90 days benzonatate 100 mg PO BID PRN 5 days blood sugar diagnostic (FreeStyle Lite Strips) As directed four times a day blood-glucose meter (FreeStyle Lite Meter kit) use as directed to test blood sugar 4x per day calcium carbonate 600 mg PO BID 90 days canagliflozin 100 mg PO DAILY 30 days cholecalciferol (vitamin D3) (Vitamin D3) 25 mcg PO DAILY 90 days clotrimazole-betamethasone 1-0.05 % 1 appl topical BID 5 days cyanocobalamin (vitamin B-12) 500 mcg sublingual DAILY 90 days docusate sodium 100 mg PO BEDTIME famotidine (Pepcid) 20 mg PO BEDTIME fluticasone propionate 50 mcg/actuation (Flonase Allergy Relief) 1 spray intranasal DAILY heating pads As directed hydrochlorothiazide 12.5 mg PO QAM insulin lispro (Humalog KwikPen (U-100) Insulin) 6 - 8 units subcut TID lancets (FreeStyle Lancets) 4 times a day Lantus Solostar U-100 Insulin (insulin glargine) 40 units (0.4 mL) subcut DAILY 90 days NS lidocaine 5% 1 patch topical DAILY linaclotide (Linzess) 290 mcg PO QAM lorazepam 0.5 mg PO DAILY PRN metoclopramide HCl 5 mg PO DAILY 90 days montelukast 10 mg PO DAILY nebulizer accessories NEBULIZER FACE MASK ADULT, USE DIRECTED nebulizers (AeroELixto Softwaree II Nebulizer) As directed pantoprazole 40 mg PO DAILY pioglitazone 30 mg PO DAILY 90 days polyethylene glycol 3350 (Miralax) 17 grams PO DAILY 30 days prednisone 50 mg PO DAILY 5 days semaglutide (Ozempic) 0.5 mg (0.736 mL) subcut QWEEK sertraline 100 mg PO DAILY sertraline 50 mg PO DAILY Shower Chair As directed simethicone 125 mg PO BID-QID PRN [toilet seat elevator As directed] Ventolin HFA 90 mcg/actuation (albuterol sulfate) 2 puffs inhalation Q6H PRN 30 days NS zolpidem 5 mg PO BEDTIME PRN HPI HPI Comments History of Present Illness Details Patient is a 57 year old female with DM type 2 diagnosed around 2004 who presents for management of diabetes. Past medical history: Diabetes type 2, hypertension, hyperlipidemia, obesity, gastric ulcer and diverticulosis Micro and macrovascular complications: +neuropathy Diabetes medications: Lantus 40 units, Humalog 4 units small meals 6 units regular meal, pioglitazone 30 mg, Invokana 100mg. Ozempic 0.5 mg Qwkly not taking Intolerant of Trulicity due to abdominal pain. Blood glucose monitoring: Sandra download shows a sensors active 61% of the time. Average glucose is 185 with GMIi 7.7%. 48% range with 52% hyperglycemia and no hypoglycemia. Pattern shows post-breakfast and post-dinner hyperglycemia Sx +numbness. Denies tingling, cramping in lower extremities. 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 - CDE education: currently Drawer Waxer: 2 years ago Dental exam: before pandemic Ophthalmology evaluation: August 2022 Laboratory Tests 11/13/20 01/22/21 01/22/21 07:50 08:30 08:30 Creatinine 0.75 Estimated GFR > 60 Hgb A1c (Clinic) Triglycerides 134 Cholesterol 147 D LDL Cholesterol, C alc 89 HDL Cholesterol 32 Vitamin B12 1009 H 25-OH Vitamin D To sofy TSH 1.85 Microalb/Creat Rat io 01/22/21 01/22/21 03/22/21 08:30 Unknown 09:42 Creatinine Estimated GFR Hgb A1c (Clinic) 7.9 H Triglycerides Cholesterol LDL Cholesterol, C alc HDL Cholesterol Vitamin B12 25-OH Vitamin D To sofy 35 TSH Microalb/Creat Rat io 5.9 PFSH Medical History Arthritis B12 deficiency Depression with anxiety Diabetes DM2 (diabetes mellitus, type 2) Dyslipidemia Ear discomfort Ear pain Edema Essential hypertension GERD (gastroesophageal reflux disease) Hearing loss Hearing loss Insomnia 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 Moderate asthma Moderate recurrent major depression Overweight Palpitations Pernicious anemia Polyarthralgia Tubular adenoma Type 2 diabetes mellitus with diabetic polyneuropathy Umbilical hernia Surgical History History of carpal tunnel release History of cholecystectomy History of endometrial ablation History of foot surgery History of surgery on arm History of tubal ligation History of umbilical hernia repair Family History Mother Breast cancer Paternal Grandmother Breast cancer Brother Colon cancer Family/Other FH: mental illness Mental health disorder Father CAD (coronary artery disease) Social History Household Members: Children Housing: Apartment Alcohol intake: never Patient Tobacco Use Status: Never used Tobacco e-Cigarette/Vaping Use: Never Used Second Hand Smoke Exposure: No service: No Current occupational status: disabled Cognitive needs: No Hearing needs: No Vision needs: Yes Female Reproductive History Menstrual Age of Menarche: 11 Physical Exam Vital Signs: Last Vital Signs Pulse 74 04/05/23 08:34 BP 102/58 L 04/05/23 08:34 BMI result Body Mass Index 27.3 Absence of Cushingoid features. Absence of acromegalic features. Neck exam reveals nl size thyroid about 15 gms. No thyroid nodules palpable. No carotid bruits present. Lungs CTA. Heart S1 S2, Reg R/R. No M/R/ G. Skin exam reveals absence of vitiligo or acanthosis nigricans. Abdominal exam reveals Soft NT/ND with NA BS. No organomegaly present. Neck Other: . Extrem Other: Visual exam of foot performed. No ulcerations or open lesions. No onchomycosis, no callouses.Pulses 2 + distally Sensation intact to monofilament exam. Vibratory sensation sensed is decreased with 128 Hz tuning fork Results AMB Hemoglobin A1c AMB Hemoglobin A1c 8.0 % Last Edit by NACHO Costello on 04/05/23 08:54 Results Reviewed Results Reviewed: 04/05/23 08:43 Glucose, Whole Blood Routine Laboratory Last Values Glucose (Clinic) 218 mg/dL (60-115) H 04/05/23 08:43 Hgb A1c (Clinic) 8.0 % (4.0-6.0) H 04/05/23 08:46 Assessment & Plan Assessment & Plan (1) DM2 (diabetes mellitus, type 2): Code(s): E11.9 - Type 2 diabetes mellitus without complications Qualifiers: Diabetes mellitus half-way insulin use: without half-way use Diabetes mellitus complication status: with hyperglycemia Qualified Code(s): E11.65 - Type 2 diabetes mellitus with hyperglycemia Plan: This is a 56-year-old female with a history of type 2 diabetes being treated with Actos, Invokana and basal-bolus insulin with poor glycemic control and known microvascular complications namely neuropathy. She has tried and failed both Trulicity and was intolerant and Ozempic Plan is to start Mounjaro 2.5 mg Q weekly and titrate as tolerateg . Went over side effects of Mounjaro including but not limited to nausea, vomiting and rare risk of pancreatitis Patient was told to report any hypoglycemia so the insulin regimen can be adjusted. She will follow-up with the community nutrition educator and seed cleaning manager. Mounjaro 2.5 mg samples given the patient lot number [id number] C expiration date 08/04/2024 Orders: Orders AMB Hemoglobin A1c Today E11.9 - Type 2 diabetes mellitus without complications Medications: New tirzepatide (Mounjaro) 5 mg (0.5 mL) subcut QWEEK 2 mL 4RF Changed From insulin lispro (Humalog KwikPen (U-100) Insulin) 4 - 6 units (0.04 - 0.06 mL) subcut TID 15 mL 4RF E11.42 - Type 2 diabetes mellitus with diabetic polyneuropathy, E11.65 - Type 2 diabetes mellitus with hyperglycemia To insulin lispro (Humalog KwikPen (U-100) Insulin) 6 - 8 units subcut TID E11.42 - Type 2 diabetes mellitus with diabetic polyneuropathy, E11.65 - Type 2 diabetes mellitus with hyperglycemia Quality Reporting (2019) Adult ([facility] ) Smoking risk assessment performed?: Yes Patient Tobacco Use Status: Never used Tobacco Coding Level of Care Code Est Pt Level 4 (77966) Diagnoses Type 2 diabetes mellitus with hyperglycemia, without long-term current use of insulin E11.65 Diabetes mellitus half-way insulin use: without truck terminal manager use Diabetes mellitus complication status: with hyperglycemia
[2023-04-05 08:34] VITALS: BP 102/58; PULSE 74; BMI 27.3
[2023-04-05 08:48] LABS: Glucose, Whole Blood 218 mg/dL (60-115)
== END 2023-04-05 09:14 | disposition home or self-care (01) ==
PROVIDERS: PCP Internal Medicine; Visit Provider Internal Medicine Endocrinology, Diabetes & Metabolism
DX: E11.9 Type 2 diabetes mellitus without complications (principal); E11.65 Type 2 diabetes mellitus with hyperglycemia
CPT/HCPCS: 99214

== ENCOUNTER → 2023-04-05 08:29 | Outpatient (BNVA) | payer OTHER, SELFPAY | PROVIDERS: PCP Internal Medicine; Visit Provider Internal Medicine Endocrinology, Diabetes & Metabolism | DX: E11.65 Type 2 diabetes mellitus with hyperglycemia (principal); E11.42 Type 2 diabetes mellitus with diabetic polyneuropathy; Z79.4 Long term (current) use of insulin | CPT/HCPCS: 82947; 83036; 99212 ==

== ENCOUNTER 2023-05-18 16:37 | Outpatient (AMB) | payer OTHER, SELFPAY ==
--- NOTE | 2023-05-18 16:43 | A.OFFPC_ITS ---
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 Accompanied by: Self / Same As Patient Allergies Penicillins Allergy (Mild, Verified 05/18/23 17:05) RASH/DYSPNEA metformin Adverse Reaction (Intermediate, Verified 05/18/23 17:05) stomach upset Medication List - Last Reconciled 05/18/23 by Norma Bland MD albuterol sulfate 90 mcg/actuation (ProAir HFA) 2 puffs inhalation Q4-6H PRN albuterol sulfate 2.5 mg (3 mL) inhalation Q4-6H PRN atorvastatin 40 mg PO BEDTIME 90 days benzonatate 100 mg PO BID PRN 5 days blood sugar diagnostic (FreeStyle Lite Strips) As directed four times a day blood-glucose meter (FreeStyle Lite Meter kit) use as directed to test blood sugar 4x per day calcium carbonate 600 mg PO BID 90 days canagliflozin 100 mg PO DAILY 30 days cholecalciferol (vitamin D3) (Vitamin D3) 25 mcg PO DAILY 90 days clotrimazole-betamethasone 1-0.05 % 1 appl topical BID 5 days cyanocobalamin (vitamin B-12) 500 mcg sublingual DAILY 90 days docusate sodium 100 mg PO BEDTIME famotidine (Pepcid) 20 mg PO BEDTIME fluticasone propionate 50 mcg/actuation (Flonase Allergy Relief) 1 spray intranasal DAILY heating pads As directed hydrochlorothiazide 12.5 mg PO QAM insulin lispro (Humalog KwikPen (U-100) Insulin) 6 - 8 units (0.06 - 0.08 mL) subcut TID lancets (FreeStyle Lancets) 4 times a day Lantus Solostar U-100 Insulin (insulin glargine) 40 units (0.4 mL) subcut DAILY 90 days NS lidocaine 5% 1 patch topical DAILY linaclotide (Linzess) 290 mcg PO QAM lorazepam 0.5 mg PO DAILY PRN metoclopramide HCl 5 mg PO DAILY 90 days montelukast 10 mg PO DAILY nebulizer accessories NEBULIZER FACE MASK ADULT, USE DIRECTED nebulizers (AeroEclipse II Nebulizer) As directed pantoprazole 40 mg PO DAILY pioglitazone 30 mg PO DAILY 90 days polyethylene glycol 3350 (Miralax) 17 grams PO DAILY 30 days prednisone 50 mg PO DAILY 5 days semaglutide (Ozempic) 0.5 mg (0.736 mL) subcut QWEEK sertraline 100 mg PO DAILY sertraline 50 mg PO DAILY Shower Chair As directed simethicone 125 mg PO BID-QID PRN tirzepatide (Mounjaro) 5 mg (0.5 mL) subcut QWEEK [toilet seat elevator As directed] Ventolin HFA 90 mcg/actuation (albuterol sulfate) 2 puffs inhalation Q6H PRN 30 days NS zolpidem 5 mg PO BEDTIME PRN Tobacco use date assessed: 09/07/22 Dental Screening Dental Screen Date: 05/18/23 Did you have a dental visit in the last 12 months?: Yes Did you have a dental problem in the last 6 months where you did not have access to dental care?: No Was dental information given to patient?: Patient has dentist HPI HPI Comments History of Present Illness Details This is a 57-year-old female with diabetes mellitus type 2 on long-term current use of insulin, hypertension, hyperlipidemia and mild recurrent major depression that comes today complaining of palpitations that has been present for about a month and happens at rest. A1c elevated and I will increase Actos from 30 mg to 45 mg. Blood pressure stable with hydrochlorothiazide. LDL within goal with statins. Depression stable with SSRIs. For her palpitations I will order a Holter monitor to rule out any arrhythmia. [facility] Medical History Ear discomfort Palpitations Overweight Type 2 diabetes mellitus with diabetic polyneuropathy B12 deficiency DM2 (diabetes mellitus, type 2) Tubular adenoma Moderate recurrent major depression Dyslipidemia Umbilical hernia Edema Arthritis Ear pain FPC (current) use of insulin Pernicious anemia Hearing loss Insomnia Depression with anxiety Moderate asthma Essential hypertension Polyarthralgia GERD (gastroesophageal reflux disease) Diabetes Hearing loss Surgical History History of cholecystectomy History of umbilical hernia repair History of foot surgery History of carpal tunnel release History of surgery on arm History of endometrial ablation History of tubal ligation Family History Mother Breast cancer Paternal Grandmother Breast cancer Brother Colon cancer Family/Other FH: mental illness Mental health disorder Father CAD (coronary artery disease) Social History Household Members: Children Housing: Apartment Alcohol intake: never Patient Tobacco Use Status: Never used Tobacco e-Cigarette/Vaping Use: Never Used Second Hand Smoke Exposure: No service: No Current occupational status: disabled Cognitive needs: No Hearing needs: No Vision needs: Yes Female Reproductive History Menstrual Age of Menarche: 11 Questionnaire Thrive Questionnaire Date Thrive assessed: 07/18/22 LIANA-7 AMB Questionnaire LIANA-7 Date LIANA - 7 assessed: 07/18/22 Source: Developed by Drs. Hernandez Love, Rebecca Peacock, Kalyan Becker and colleagues, with an educational julio from [employer]. Review of Systems Const All systems reviewed & are unremarkable except as noted in HPI and below Eyes Reports no additional complaints, Denies change in vision and Denies other visual disturbances Card Denies chest pain at rest, Denies chest pain with activity, Reports rapid heart rate, Denies edema, Denies irregular heart rhythm, Denies claudication, Denies dyspnea, Denies dyspnea on exertion, Denies orthopnea, Denies paroxysmal nocturnal dyspnea and Denies slow heart rate Resp Denies cough, Denies dyspnea and Denies dyspnea on exertion GI Denies abdominal pain, Denies change in bowel habits, Denies excessive flatus, Denies nausea and Denies vomiting Denies urinary incontinence, Denies urinary hesitancy and Denies urinary urgency Musc Denies abnormal gait, Denies atrophy, Denies deformity and Denies limited range of motion Skin/Breast Denies bleeding lesions, Denies changing lesions and Denies rash Neuro Denies abnormal gait, Denies behavioral changes and Denies lack of coordination Psych Denies behavioral changes Physical exam (Primary Care) Vital Signs: Last Vital Signs Pulse 74 05/18/23 16:45 BP 124/70 05/18/23 16:45 Pulse Ox 99 05/18/23 16:45 Oxygen Delivery Method Room Air 11/16/23 16:45 BMI result Body Mass Index 26.7 Tobacco/Smoking Status: Tobacco use Status Tobacco use date assessed 09/07/22 05/18/23 16:44 Patient Tobacco Use Status Never used Tobacco 05/18/23 16:44 e-Cigarette/Vaping Use Never Used 05/18/23 16:44 Thrive Assessment: Date of Thrive Assessment Date Thrive assessed 07/18/22 05/18/23 16:44 Eyes General: appearance normal, both eyes and all related structures Eyelids: Yes eyelids normal Conjunctivae: conjunctivae normal Neck Neck: Yes normal visual inspection and Yes supple Resp Effort & Inspection: normal respiratory effort Auscultation: clear to auscultation bilaterally Cardio Jugular venous distension: no JVD Rate: regular rate Rhythm: regular rhythm Heart sounds: S1 normal heart sound present and S2 normal heart sound present Extrem General: Yes full ROM Office Procedures Flu Questionnaire Does the patient have a severe egg allergy?: No Does the patient have severe life threatening allergies?: No Does the patient have a fever or illness today?: No Has the patient ever had Guillain-[place] Syndrome?: No Has the patient ever had any past reaction to a flu shot?: No Immunizations flu vacc [id number] 6mos up(PF) 60 mcg(15 mcgx4)/0.5 mL IM syringe Performing Provider: Norma Bland MD Performing Location: [facility] Administered by: NACHO Oneil on 05/18/23 17:13 Dose Route Admin Location Dispensed Lot Number Expiration Date [facility] Parachute Supervisor 0.5 mL IM Right Deltoid 0.5 mL [id number] 12/31/23 22400-375-12 [employer] VIS Given Date VIS Provided VIS Publication Date 05/18/23 Single Vaccine 21 Eligibility Eligibility Date Funding Source Not [facility] Eligible 05/18/23 Private Assessment and Plan Assessment & Plan (1) Palpitations: Code(s): R00.2 - Palpitations Plan: Holter monitor ordered. (2) DM2 (diabetes mellitus, type 2): Code(s): E11.9 - Type 2 diabetes mellitus without complications Qualifiers: Diabetes mellitus fpc insulin use: without preliminary school psychologist use Diabetes mellitus complication status: with hyperglycemia Qualified Code(s): E11.65 - Type 2 diabetes mellitus with hyperglycemia Plan: Continue insulin and Invokana. Increase Actos from 30 mg to 45 mg. A1c goal is equal or less than 7%. (3) Hyperlipidemia LDL goal <70: Code(s): E78.5 - Hyperlipidemia, unspecified Plan: Continue statins. LDL goal is less than 70. (4) Moderate recurrent major depression: Code(s): F33.1 - Major depressive disorder, recurrent, moderate Plan: Continue SSRIs. (5) Essential hypertension: Code(s): I10 - Essential (primary) hypertension Plan: Continue hydrochlorothiazide. Blood pressure goal is equal or less than 130/80. Orders: Orders Influenza [id number] Immunization 05/18/23 Z23 - Encounter for immunization ECG holter monitor 48 hour 05/18/23 R00.2 - Palpitations Medications: New pioglitazone 45 mg PO DAILY 90 days 90 tabs 0RF Discontinued pioglitazone Discontinued Reason: Patient Completed Course 30 mg PO DAILY 90 days 90 tabs 3RF Coding Level of Care Code Est Pt Level 4 (31365) Diagnoses Palpitations R00.2 Type 2 diabetes mellitus with hyperglycemia, without long-term current use of insulin E11.65 Diabetes mellitus preliminary school psychologist insulin use: without fpc use Diabetes mellitus complication status: with hyperglycemia Hyperlipidemia LDL goal <70 E78.5 Moderate recurrent major depression F33.1 Essential hypertension I10 Time Spent (min) 25
[2023-05-18 16:45] VITALS: BP 124/70; PULSE 74; O2SAT 99; BMI 26.7
== END 2023-05-18 17:18 | disposition home or self-care (01) ==
PROVIDERS: PCP Internal Medicine; Visit Provider Internal Medicine
DX: Z23 Encounter for immunization (principal)
CPT/HCPCS: 90471; 90686; 99214

== ENCOUNTER → 2023-05-30 10:13 | Outpatient (REF) | payer OTHER, SELFPAY ==
--- NOTE | 2023-05-30 10:19 | HM_ITS ---
Conclusion: 1. Patient was monitored for total period of 2 days 2. Baseline was normal sinus rhythm with average heart of 76 beats per minute 3. No significant pauses or arrhythmias noted 4. No patient reported events MTDD
== END ==
LOC: HO.CARD 10:13
PROVIDERS: PCP Internal Medicine; Visit Provider Internal Medicine
DX: R00.2 Palpitations (principal)
CPT/HCPCS: 93225

== ENCOUNTER → 2023-05-30 10:19 | Outpatient (BNV) | payer OTHER, SELFPAY | PROVIDERS: PCP Internal Medicine; Visit Provider Internal Medicine Cardiovascular Disease | DX: R00.2 Palpitations (principal) | CPT/HCPCS: 93227 ==

== ENCOUNTER 2023-06-01 10:42 | Outpatient (REF) | payer OTHER, SELFPAY ==
[2023-06-01 12:56] LABS: Appearance Urine Clear; Color Urine Yellow; Glucose Urine UA >=1000 mg/dL (Negative); Leukocyte Esterase Urine Negative (Negative); Nitrite Urine Negative (Negative); PH 6.5 (5.0-9.0); Specific Gravity - Urine >= 1.030 (1.005-1.025); UMIC TRIGGER UACC YES; Urine Blood Negative (Negative); Urine Ketones Negative (Negative); Urine Protein Negative (Neg-Trace)
[2023-06-01 13:01] LABS: Bacteria Urine None Seen (None Seen); Hyaline Casts Urine 0-2 /LPF (0-2); RBC Urine 0-2 /HPF (0-2); Squamous Epithelial Cell Urine 0-2 /HPF (0-2); WBC Urine 0-5 /HPF (0-5)
== END 2023-06-01 10:43 | disposition home or self-care (01) ==
LOC: HO.LAB 10:42
PROVIDERS: PCP Internal Medicine; Visit Provider Internal Medicine
DX: R39.9 Unspecified symptoms and signs involving the genitourinary system (principal)
CPT/HCPCS: 81001

== ENCOUNTER 2023-06-06 11:58 | Outpatient (AMB) | payer OTHER, SELFPAY ==
[2023-06-06 12:00] VITALS: BP 102/60; PULSE 89; O2SAT 98; BMI 27.1
--- NOTE | 2023-06-06 12:00 | MHC.PC.OV ---
Vital Signs 06/06/23 12:00 Height 5 ft 2 in Weight 148 lb BMI 27.1 BP 102/60 Blood Pressure Location Lt brachial Position Sitting Pulse 89 Pulse Source Pulse Oximeter Pulse Oximetry (%) 98 Oxygen Delivery Method Room Air Intake Visit Reasons: DM Wellness Program Coordinator Required: Yes Wellness Program Coordinator Language: Sami Allergies Penicillins Allergy (Mild, Verified 06/06/23 12:12) RASH/DYSPNEA metformin Adverse Reaction (Intermediate, Verified 06/06/23 12:12) stomach upset Medication List - Last Reconciled 06/06/23 by JARAD Carvalho albuterol sulfate 90 mcg/actuation (ProAir HFA) 2 puffs inhalation Q4-6H PRN albuterol sulfate 2.5 mg (3 mL) inhalation Q4-6H PRN atorvastatin 40 mg PO BEDTIME 90 days benzonatate 100 mg PO BID PRN 5 days blood sugar diagnostic (FreeStyle Lite Strips) As directed four times a day blood-glucose meter (FreeStyle Lite Meter kit) use as directed to test blood sugar 4x per day calcium carbonate 600 mg PO BID 90 days canagliflozin 100 mg PO DAILY 30 days cholecalciferol (vitamin D3) (Vitamin D3) 25 mcg PO DAILY 90 days clotrimazole-betamethasone 1-0.05 % 1 appl topical BID 5 days cyanocobalamin (vitamin B-12) 500 mcg sublingual DAILY 90 days docusate sodium 100 mg PO BEDTIME famotidine (Pepcid) 20 mg PO BEDTIME fluticasone propionate 50 mcg/actuation (Flonase Allergy Relief) 1 spray intranasal DAILY heating pads As directed hydrochlorothiazide 12.5 mg PO QAM insulin lispro (Humalog KwikPen (U-100) Insulin) 6 - 8 units (0.06 - 0.08 mL) subcut TID lancets (FreeStyle Lancets) 4 times a day Lantus Solostar U-100 Insulin (insulin glargine) 40 units (0.4 mL) subcut DAILY 90 days NS lidocaine 5% 1 patch topical DAILY linaclotide (Linzess) 290 mcg PO QAM lorazepam 0.5 mg PO DAILY PRN metoclopramide HCl 5 mg PO DAILY 90 days montelukast 10 mg PO DAILY nebulizer accessories NEBULIZER FACE MASK ADULT, USE DIRECTED nebulizers (AeroEclipse II Nebulizer) As directed pantoprazole 40 mg PO DAILY pioglitazone 45 mg PO DAILY 90 days polyethylene glycol 3350 (Miralax) 17 grams PO DAILY 30 days sertraline 100 mg PO DAILY sertraline 50 mg PO DAILY Shower Chair As directed simethicone 125 mg PO BID-QID PRN tirzepatide (Mounjaro) 5 mg (0.5 mL) subcut QWEEK [toilet seat elevator As directed] Ventolin HFA 90 mcg/actuation (albuterol sulfate) 2 puffs inhalation Q6H PRN 30 days NS zolpidem 5 mg PO BEDTIME PRN Tobacco use date assessed: 06/06/23 HPI DM HPI Details Patient is a 57-year-old female who presents today to follow-up on diabetes. Patient of Dr. Dorman. Medical history significant for diabetes, GERD, hypertension, asthma, dyslipidemia among others. Patient reports compliance with medications. Reports intermittent palpitations, would like to review her Holter monitor from 05/2023, Holter monitor with no acute findings. Will order thyroid blood work as well. Reports noticing more palpitations when feeling anxious. Patient denies shortness of breath or chest pain. Reports blood sugars at home in 100s. 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 Pernicious anemia Hearing loss Insomnia Depression with anxiety Moderate asthma Essential hypertension Polyarthralgia GERD (gastroesophageal reflux disease) Diabetes Hearing loss Surgical History History of cholecystectomy History of umbilical hernia repair History of foot surgery History of carpal tunnel release History of surgery on arm History of endometrial ablation History of tubal ligation Family History Mother Breast cancer Paternal Grandmother Breast cancer Brother Colon cancer Family/Other FH: mental illness Mental health disorder Father CAD (coronary artery disease) Social History Household Members: Children Housing: Apartment Alcohol intake: never Patient Tobacco Use Status: Never used Tobacco e-Cigarette/Vaping Use: Never Used Second Hand Smoke Exposure: No service: No Current occupational status: disabled Cognitive needs: No Hearing needs: No Vision needs: Yes Female Reproductive History Menstrual Age of Menarche: 11 Questionnaire Thrive Questionnaire Date Thrive assessed: 07/18/22 AUDIT C Alcohol Use Questionnaire (AUDIT-C) 1. How often do you have a drink containing alcohol?: Never Total Score: 0 Score Reviewed/Action Taken: No LIANA-7 AMB Questionnaire LIANA-7 Date LIANA - 7 assessed: 07/18/22 Source: Developed by Drs. Hernandez Love, Rebecca Peacock, Kalyan Becker and colleagues, with an educational julio from [employer]. Review of Systems Const Denies body aches, Denies chills, Denies fever(s) and Denies headache(s) ENT Denies dizziness, Denies otalgia, Denies headache(s), Denies nasal discharge, Denies sinus pain and Denies sore throat Card Reports as per HPI, Denies chest pain, Denies edema, Denies lightheadedness and Denies dyspnea Resp Denies cough, Denies dyspnea and Denies wheezing GI Denies abdominal pain Musc Denies myalgias Neuro Denies dizziness and Denies headache(s) Aller/Immun Denies wheezing Physical exam (Primary Care) Vital Signs: Last Vital Signs Pulse 89 06/06/23 12:00 BP 102/60 06/06/23 12:00 Pulse Ox 98 06/06/23 12:00 Oxygen Delivery Method Room Air 06/06/23 12:00 BMI result Body Mass Index 27.1 Tobacco/Smoking Status: Tobacco use Status Tobacco use date assessed 06/06/23 06/06/23 12:02 Patient Tobacco Use Status Never used Tobacco 06/06/23 12:02 e-Cigarette/Vaping Use Never Used 06/06/23 12:02 Thrive Assessment: Date of Thrive Assessment Date Thrive assessed 07/18/22 06/06/23 12:02 Const General: cooperative and no acute distress Orientation/consciousness: patient oriented x3 HENMT Head: Yes normocephalic and Yes atraumatic Face and sinus: Yes sinuses nontender Mouth: oropharynx normal and moist mucous membranes Throat: Yes posterior oropharynx normal Eyes General: appearance normal, both eyes and all related structures Neck Neck: Yes normal visual inspection and Yes full ROM Resp Effort & Inspection: normal respiratory effort and able to speak in complete sentences Auscultation: clear to auscultation bilaterally, no crackles, no rales, no rhonchi and no wheezes Cardio Rate: regular rate Rhythm: regular rhythm Heart sounds: S1 normal heart sound present and S2 normal heart sound present GI Auscultation: normal bowel sounds Skin General skin exam: no rashes or lesions noted Neuro General: patient oriented x3 Gait exam (Neuro): Normal gait present Extrem General: Yes full ROM Results AMB Hemoglobin A1c AMB Hemoglobin A1c 8.0 % Last Edit by NACHO Smith on 06/06/23 12:13 Assessment and Plan Assessment & Plan (1) Hyperlipidemia LDL goal <70: Code(s): E78.5 - Hyperlipidemia, unspecified Plan: Continue atorvastatin Low-cholesterol diet (2) Type 2 diabetes mellitus with diabetic polyneuropathy: Code(s): E11.42 - Type 2 diabetes mellitus with diabetic polyneuropathy Plan: A1c 8.0 today, goal less than 7 Continue insulins, pioglitazone recently was increased, Invokana Low-carbohydrate diet (3) Palpitations: Code(s): R00.2 - Palpitations Plan: Will check thyroid blood work Holter monitor with acute findings 05/2023 Signs and symptoms reviewed when to notify provider go to the emergency department (4) Essential hypertension: Code(s): I10 - Essential (primary) hypertension Plan: Goal BP equal or less than 140/90 Continue hydrochlorothiazide Low-sodium diet Orders: Orders AMB Hemoglobin A1c Today E11.9 - Type 2 diabetes mellitus without complications Comprehensive [place]. Panel Fast 4 Months E11.42 - Type 2 diabetes mellitus with diabetic polyneuropathy TSH reflex Free T4 Today E11.9 - Type 2 diabetes mellitus without complications Lipid Panel 4 Months E78.5 - Hyperlipidemia, unspecified Medications: Refilled albuterol sulfate 90 mcg/actuation (ProAir HFA) 2 puffs inhalation Q4-6H PRN 8.5 grams 0RF shortness of breath or wheezing J45.909 - Unspecified asthma, uncomplicated Discontinued tirzepatide (Mounjaro) Discontinued Reason: Patient no longer taking 5 mg (0.5 mL) subcut QWEEK 2 mL 4RF Coding Level of Care Code Est Pt Level 4 (72063) Diagnoses Hyperlipidemia LDL goal <70 E78.5 Type 2 diabetes mellitus with diabetic polyneuropathy E11.42 Palpitations R00.2 Essential hypertension I10
== END 2023-06-06 12:29 | disposition home or self-care (01) ==
PROVIDERS: PCP Internal Medicine; Visit Provider Nurse Practitioner Family
DX: E78.5 Hyperlipidemia, unspecified (principal); E11.42 Type 2 diabetes mellitus with diabetic polyneuropathy; R00.2 Palpitations; I10 Essential (primary) hypertension
CPT/HCPCS: 83036; 99214

== ENCOUNTER 2023-06-23 11:07 | Outpatient (AMB) | payer OTHER, SELFPAY ==
[2023-06-23 11:16] VITALS: BP 105/61; PULSE 76; BMI 26.8
--- NOTE | 2023-06-23 11:16 | MHC.OFFVIS ---
Intake Vital Signs 06/23/23 11:16 Height 5 ft 2 in Weight 146 lb 6.191 oz BMI 26.8 BP 105/61 Blood Pressure Location Rt brachial Position Sitting Pulse 76 Pulse Source Pulse Oximeter Intake Visit Reasons: follow up GERD PT N/S last 2 times Intake Note: Pt presents to the office today for a follow up for GERD. Pt states she has a lot of stomach pain and sometimes has diarrhea. Pt denies any vomiting. Allergies Penicillins Allergy (Mild, Verified 07/06/23 07:43) RASH/DYSPNEA metformin Adverse Reaction (Intermediate, Verified 07/06/23 07:43) stomach upset HPI follow up GERD PT N/S last 2 times HPI Details LAST VISIT: 11/22/2022 GERD (gastroesophageal reflux disease) Continue current treatment with pantoprazole in the morning and famotidine at bedtime. Patient was encouraged to avoid dietary triggers a late night snacking. Staying upright for minimum 3 hours after meals discussed with patient. Postprandial abdominal bloating Low FODMAP diet discussed with patient. Patient states that she is feeling better, changed her diet IBS (irritable bowel syndrome) Continue Linzess. Patient will continue low FODMAP diet. List of food recommended as well as list of food to avoid discussed with patient. I will see her in 6 months, sooner on as needed basis. Patient is agreeable to this plan and verbalizes understanding of instructions. She was given the opportunity to ask questions all questions answered. ? Thank you for allowing me to participate in her care Plan Medications Refilled famotidine (Pepcid) 20 mg PO BEDTIME 90 tabs 3RF K21.9 - Gastro-esophageal reflux disease without esophagitis pantoprazole take one tablet half an hour before breakfast 40 mg PO DAILY 90 tabs 2RF K21.9 - Gastro-esophageal reflux disease without esophagitis linaclotide (Linzess) 290 mcg PO QAM 30 caps 4RF K59.00 - Constipation, unspecified docusate sodium 100 mg PO BEDTIME 90 caps 3RF K59.00 - Constipation, unspecified polyethylene glycol 3350 (Miralax) 17 grams PO DAILY 30 days 510 grams 3RF simethicone 125 mg PO BID-QID PRN 120 caps 3RF abdominal distention Discontinued bisacodyl (Dulcolax (bisacodyl)) Discontinued Reason: Patient no longer taking 10 mg (2 x 5 mg) PO BEDTIME 180 tabs 4RF TODAY'S VISIT: Patient is here today for follow-up. Patient has missed couple appointments. She ran out of her medications. Patient reports postprandial epigastric pain, dyspepsia without dysphagia or odynophagia. Patient reports feeling bloated postprandially. Patient visit she does move her bowels well. Patient ran out of Linzess. Patient denies any nausea or vomiting. Reports occasional postprandial abdominal bloating and cramping without abdominal pain. Patient denies any melena, hematochezia, unintentional weight loss or ribbon like stools. Just of note going over patient's history, colonoscopy with tubular adenoma in April of 2021, recommendation was made for 3-5 years surveillance. Patient's family history of colorectal cancer. Patient's brother was diagnosed with colorectal cancer at age 60. 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 Pernicious anemia Hearing loss Insomnia Depression with anxiety Moderate asthma Essential hypertension Polyarthralgia GERD (gastroesophageal reflux disease) Diabetes Hearing loss Surgical History History of cholecystectomy History of umbilical hernia repair History of foot surgery History of carpal tunnel release History of surgery on arm History of endometrial ablation History of tubal ligation Family History Mother Breast cancer Paternal Grandmother Breast cancer Brother Colon cancer Family/Other FH: mental illness Mental health disorder Father CAD (coronary artery disease) Social History Household Members: Children Housing: Apartment Alcohol intake: never Patient Tobacco Use Status: Never used Tobacco e-Cigarette/Vaping Use: Never Used Second Hand Smoke Exposure: No service: No Current occupational status: disabled Cognitive needs: No Hearing needs: No Vision needs: Yes Female Reproductive History Menstrual Age of Menarche: 11 Review of Systems Const Denies weight gain and Denies weight loss ENT Reports no additional complaints, Denies dysphagia and Denies odynophagia Card Reports no additional complaints Resp Reports no additional complaints GI Reports abdominal pain (Epigastric), Denies belching, Denies melena, Reports bloating, Denies change in bowel habits, Reports constipation, Denies dysphagia, Denies excessive flatus, Denies dyspepsia, Reports heartburn, Denies diarrhea, Denies loose stools, Denies nausea, Denies odynophagia and Denies vomiting Reports no additional complaints Musc Reports no additional complaints Neuro Reports no additional complaints Psych Reports no additional complaints Endo Reports no additional complaints Physical Exam Vital Signs: Last Vital Signs Pulse 76 06/23/23 11:16 BP 105/61 06/23/23 11:16 BMI result Body Mass Index 26.8 Const General: healthy appearing, no acute distress and well developed Nutritional Appearance: well nourished Orientation/consciousness: patient oriented x3 HEENT Head: Yes normal to inspection, Yes normocephalic and Yes atraumatic Face and sinus: Yes normal facial exam Mouth: Normal oral and palatal mucosa present Throat: Yes posterior oropharynx normal, Yes tonsils normal and Yes uvula midline Eyes General: appearance normal, both eyes and all related structures Neck Neck: Yes normal visual inspection, Yes full ROM and Yes trachea midline Thyroid: Thyroid normal Resp Effort & Inspection: normal respiratory effort, able to speak in complete sentences, no tracheal deviation and symmetric chest movement Auscultation: clear to auscultation bilaterally Cardio Rate: regular rate GI Inspection: Yes normal to inspection and No distended Palpation (GI): Soft to palpation, not firm, nontender and No hepatosplenomegaly present Auscultation: normal bowel sounds General: Yes no CVA tenderness Back/Spine/Pelvis Back: no CVA tenderness Skin General skin exam: elasticity normal, turgor normal and dry skin Neuro General: patient oriented x3 Psych Appearance: grossly normal Mental Status: mental status grossly normal Assessment & Plan Assessment & Plan (1) GERD (gastroesophageal reflux disease): Code(s): K21.9 - Gastro-esophageal reflux disease without esophagitis Qualifiers: Esophagitis presence: without esophagitis Qualified Code(s): K21.9 - Gastro-esophageal reflux disease without esophagitis (2) Postprandial abdominal bloating: Code(s): R14.0 - Abdominal distension (gaseous) (3) IBS (irritable bowel syndrome): Code(s): K58.9 - Irritable bowel syndrome without diarrhea Qualifiers: Irritable bowel syndrome type: with constipation Qualified Code(s): K58.1 - Irritable bowel syndrome with constipation (4) Chronic idiopathic constipation: Code(s): K59.04 - Chronic idiopathic constipation Plan Will refill Linzess. Patient was encouraged to increase fluid intake and activity to promote better bowel motility. Will refill pantoprazole and famotidine. Patient was also encouraged to avoid dietary triggers and late night snacking. Staying upright for minimum 3 hours after meals discussed with patient. Patient will return in 6 months, sooner on as needed basis. Patient will call our office if she will have any GI concerning symptoms. We will discuss going for colonoscopy next visit. Patient is agreeable to this plan and verbalizes understanding of instructions. She was given the opportunity to ask questions and all questions answered. Thank you for allowing me to participate in her care Medications: Refilled linaclotide (Linzess) 290 mcg PO QAM 30 caps 4RF K59.00 - Constipation, unspecified pantoprazole take one tablet half an hour before breakfast 40 mg PO DAILY 90 tabs 2RF K21.9 - Gastro-esophageal reflux disease without esophagitis famotidine (Pepcid) 20 mg PO BEDTIME 90 tabs 3RF K21.9 - Gastro-esophageal reflux disease without esophagitis Quality Reporting (2019) Adult ([facility] 13808/24/68) Smoking risk assessment performed?: Yes Patient Tobacco Use Status: Never used Tobacco Coding Level of Care Code Est Pt Level 4 (71800) Diagnoses Gastroesophageal reflux disease without esophagitis K21.9 Esophagitis presence: without esophagitis Postprandial abdominal bloating R14.0 Irritable bowel syndrome with constipation K58.1 Irritable bowel syndrome type: with constipation Chronic idiopathic constipation K59.04 Time Spent (min) 35 Comment 20 minutes spent with patient and additional 15 minutes spent reviewing her records
== END 2023-06-23 11:57 | disposition home or self-care (01) ==
PROVIDERS: PCP Internal Medicine; Visit Provider Nurse Practitioner Family
DX: K21.9 Gastro-esophageal reflux disease without esophagitis (principal); R14.0 Abdominal distension (gaseous); K58.1 Irritable bowel syndrome with constipation; K59.04 Chronic idiopathic constipation
CPT/HCPCS: 99214

== ENCOUNTER → 2023-06-23 11:07 | Outpatient (BNVA) | payer OTHER, SELFPAY | PROVIDERS: PCP Internal Medicine; Visit Provider Nurse Practitioner Family | DX: K21.9 Gastro-esophageal reflux disease without esophagitis (principal); K58.1 Irritable bowel syndrome with constipation; K59.04 Chronic idiopathic constipation; R14.0 Abdominal distension (gaseous) | CPT/HCPCS: 99212 ==

== ENCOUNTER 2023-07-06 07:34 | Outpatient (REF) | payer OTHER, SELFPAY | END 2023-07-06 07:35 | disposition home or self-care (01) | LOC: HO.LNP 07:34 | PROVIDERS: PCP Internal Medicine; Visit Provider Obstetrics & Gynecology | DX: R10.2 Pelvic and perineal pain (principal) | CPT/HCPCS: 0353U; 81002; 99212 ==

== ENCOUNTER 2023-07-06 07:34 | Outpatient (AMB) | payer OTHER, SELFPAY ==
--- NOTE | 2023-07-06 07:34 | MHC.OFFVIS ---
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 It's intermittent in nature lasting few seconds and occurs few times a day. it is not associated with any constipation, no dysuria, no frequency or incontinence, no n/v, no feverishness. 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 Pernicious anemia Hearing loss Insomnia Depression with anxiety Moderate asthma Essential hypertension Polyarthralgia GERD (gastroesophageal reflux disease) Diabetes Hearing loss Surgical History History of cholecystectomy History of umbilical hernia repair History of foot surgery History of carpal tunnel release History of surgery on arm History of endometrial ablation History of tubal ligation Family History Mother Breast cancer Paternal Grandmother Breast cancer Brother Colon cancer Family/Other FH: mental illness Mental health disorder Father CAD (coronary artery disease) Social History Household Members: Children Housing: Apartment Alcohol intake: never Patient Tobacco Use Status: Never used Tobacco e-Cigarette/Vaping Use: Never Used Second Hand Smoke Exposure: No service: No Current occupational status: disabled Cognitive needs: No Hearing needs: No Vision needs: Yes Female Reproductive History Menstrual Age of Menarche: 11 Review of Systems Const All systems reviewed & are unremarkable except as noted in HPI and below Physical Exam Vital Signs: Last Vital Signs BP 120/70 07/06/23 07:41 BMI result Body Mass Index 26.3 General: Yes no CVA tenderness External Female Exam: normal external appearance and normal appearance of the urethra Speculum Exam - Vagina: normal appearance of the vagina, normal palpation, no lesions and no masses Speculum Exam - Cervix: normal appearance of the cervix, normal palpation, no lesions, no masses and nontender Bimanual exam- vagina & uterus: normal bimanual exam, normal palpation, uterine size normal, normal palpation, uterine shape normal, No Cervical tenderness present and non-tender Bimanual Exam- Adnexa, other: normal adnexae Back/Spine/Pelvis Back: no CVA tenderness Assessment & Plan Assessment & Plan (1) Pelvic pain: Comment: Myoma Code(s): R10.2 - Pelvic and perineal pain Plan: Urine dip done in the office was negative. GC and chlamydia taken and pelvic ultrasound ordered. Discussed with the patient the differential diagnosis of pelvic pain including but not limited to adnexal, uterine masses, pelvic infections (PID), GI the (Irritable bowel syndrome, diverticulitis, others), musculoskeletal, myofascial pain abdominal wall , adhesions, endometriosis, psychological and others causes. Will check results and treat accordingly. All questions answered, the patient verbalized understanding. Instructed the patient to schedule follow-up appointment in 2 weeks Orders: Orders US pelvic and transvaginal Today R10.2 - Pelvic and perineal pain Quality Reporting (2020) Adult ([facility] 138/2//69) Smoking risk assessment performed?: Yes Patient Tobacco Use Status: Never used Tobacco Coding Level of Care Code Est Pt Level 3 (11000) Diagnoses Pelvic pain R10.2
[2023-07-06 07:41] VITALS: BP 120/70; BMI 26.3
== END 2023-07-06 07:51 | disposition home or self-care (01) ==
PROVIDERS: PCP Internal Medicine; Visit Provider Obstetrics & Gynecology
DX: R10.2 Pelvic and perineal pain (principal)
CPT/HCPCS: 99213

== ENCOUNTER 2023-07-15 11:28 | Emergency (ER) | payer OTHER, SELFPAY ==
--- NOTE | ~2023-07-15 | XR_ITS ---
EXAMINATION: XR CHEST CLINICAL INFORMATION: Chest pain COMPARISON: September 15, 2022 and April 07, 2022 TECHNIQUE: 2 views of the chest were obtained. FINDINGS: No significant abnormality is noted involving the heart, lungs, mediastinum, bony thorax or soft tissues. XR/XR chest 2V IMPRESSION: No acute disease.
--- NOTE | 2023-07-15 11:30 | ECG_ITS ---
Test Reason : CP Blood Pressure : / mmHG Vent. Rate : 075 BPM Atrial Rate : 075 BPM P-R Int : 148 ms QRS Dur : 082 ms QT Int : 406 ms P-R-T Axes : 076 059 060 degrees QTc Int : 453 ms Normal sinus rhythm Normal ECG When compared with ECG of 15-SEP-2022 08:33, No significant change was found Referred By: Iris Fragoso Electronically Signed By:JOANNE GARCIA MD
--- NOTE | 2023-07-15 13:12 | ED.CHESTPAIN ---
HPI - Chest Pain General Chief Complaint: Chest Pain Stated Complaint: chest pain Time Seen by Provider: 07/15/23 22:25 Source: patient Mode of arrival: ambulatory Limitations: no limitations History of Present Illness HPI narrative: Patient history of anxiety palpitation for several had Holter monitoring done in 05/25 for 2 days which shows no arrhythmias comes here for similar palpitation episode with increased anxiety and chest for last few days patient complain of palpitation but cardiac monitoring was not showing any arrhythmia patient already had 2 sets of cardiac troponin which was negative EKG without any ischemic changes patient does have medicine lorazepam for anxiety at home Related Data Home Medications Medication Instructions Recorded Confirmed lorazepam 0.5 mg tablet 0.5 mg PO DAILY PRN 04/16/20 06/06/23 zolpidem 5 mg tablet 5 mg PO BEDTIME PRN 04/16/20 06/06/23 sertraline 100 mg tablet 100 mg PO DAILY 06/17/20 06/06/23 sertraline 50 mg tablet 50 mg PO DAILY 04/05/23 06/06/23 Previous Rx's Medication Instructions Recorded clotrimazole-betamethasone 1 1 appl topical BID 5 days #45 grams 11/25/20 %-0.05 % topical cream toilet seat elevator #1 ea 08/02/21 fluticasone propionate 50 1 spray intranasal DAILY #100 mL 03/20/22 mcg/actuation nasal spray,suspension (Flonase Allergy Relief) metoclopramide HCl 5 mg tablet 5 mg PO DAILY 90 days #90 tabs 04/26/22 lidocaine 5 % topical patch 1 patch topical DAILY #15 ea 05/30/22 heating pads #1 ea 05/31/22 Lantus Solostar U-100 Insulin 100 40 unit (0.4 mL) subcut DAILY 90 10/20/22 unit/mL (3 mL) subcutaneous pen days #36 mL (insulin glargine) canagliflozin 100 mg tablet 100 mg PO DAILY 30 days #30 tabs 10/20/22 calcium carbonate 600 mg calcium 600 mg PO BID 90 days #180 tabs 10/25/22 (1,500 mg) tablet cholecalciferol (vitamin D3) 25 25 mcg PO DAILY 90 days #90 tabs 10/28/22 mcg (1,000 unit) tablet (Vitamin D3) docusate sodium 100 mg capsule 100 mg PO BEDTIME #90 caps 11/22/22 polyethylene glycol 3350 17 17 g PO DAILY 30 days #510 grams 11/22/22 gram/dose oral powder (Miralax) simethicone 125 mg capsule 125 mg PO BID-QID PRN abdominal 11/22/22 distention #120 caps nebulizer accessories #1 ea 11/30/22 Shower Chair #1 ea 12/21/22 blood sugar diagnostic (FreeStyle #150 ea 12/21/22 Lite Strips) blood-glucose meter (FreeStyle #1 ea 12/21/22 Lite Meter kit) lancets 28 gauge (FreeStyle #200 ea 12/21/22 Lancets) montelukast 10 mg tablet 10 mg PO DAILY #90 tabs 01/09/23 hydrochlorothiazide 12.5 mg tablet 12.5 mg PO QAM #90 tabs 01/24/23 Ventolin HFA 90 mcg/actuation 2 puff inhalation Q6H PRN 02/21/23 aerosol inhaler (albuterol sulfate) shortness of breath or wheezing 30 days #8 grams nebulizers (AeroEclipse II #1 ea 03/30/23 Nebulizer) insulin lispro 100 unit/mL 6 - 8 unit (0.06 - 0.08 mL) subcut 04/21/23 subcutaneous pen (Humalog KwikPen TID #15 mL (U-100) Insulin) atorvastatin 40 mg tablet 40 mg PO BEDTIME 90 days #90 tabs 05/06/23 pioglitazone 45 mg tablet 45 mg PO DAILY 90 days #90 tabs 05/18/23 albuterol sulfate 90 mcg/actuation 2 puff inhalation Q4-6H PRN 06/06/23 aerosol inhaler (ProAir HFA) shortness of breath or wheezing #8.5 grams famotidine 20 mg tablet (Pepcid) 20 mg PO BEDTIME #90 tabs 06/23/23 linaclotide 290 mcg capsule 290 mcg PO QAM #30 caps 06/23/23 (Linzess) pantoprazole 40 mg tablet,delayed 40 mg PO DAILY #90 tabs 06/23/23 release albuterol sulfate 2.5 mg/3 mL 2.5 mg (3 mL) inhalation Q4-6H PRN 06/29/23 (0.083 %) solution for nebulization bronchospasm #75 mL benzonatate 100 mg capsule 100 mg PO BID PRN cough 5 days #10 06/29/23 caps cyanocobalamin (vitamin B-12) 500 500 mcg sublingual DAILY 90 days 07/13/23 mcg disintegrating #90 tabs tablet,sublingual Allergies Allergy/AdvReac Type Severity Reaction Status Date / Time Penicillins Allergy Mild RASH/DYSPNE Verified 07/15/23 13:15 A metformin AdvReac Intermediate stomach Verified 07/15/23 13:15 upset Review of Systems Review of Systems: Yes all other systems are reviewed and are negative PMFSH Past Medical History Onset Date is defined in the Problem List Problems that require an onset date and time if occurred within 24 hrs of arrival to the ED Aortic Dissection and Rupture; Neurologic impairment; Cardiopulmonary Arrest; Endotracheal Intubation; Insertion or Replacement of Mechanical Circulatory Assist Device Medical History Ear discomfort Palpitations Overweight Type 2 diabetes mellitus with diabetic polyneuropathy B12 deficiency DM2 (diabetes mellitus, type 2) Tubular adenoma Moderate recurrent major depression Dyslipidemia Umbilical hernia Edema Arthritis Ear pain 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 Pernicious anemia Hearing loss Insomnia Depression with anxiety Moderate asthma Essential hypertension Polyarthralgia GERD (gastroesophageal reflux disease) Diabetes Hearing loss Surgical History History of cholecystectomy History of umbilical hernia repair History of foot surgery History of carpal tunnel release History of surgery on arm History of endometrial ablation History of tubal ligation Family History Family History Mother Breast cancer Paternal Grandmother Breast cancer Brother Colon cancer Family/Other FH: mental illness Mental health disorder Father CAD (coronary artery disease) Social History Social History Household Members: Children Housing: Apartment Alcohol intake: never Patient Tobacco Use Status: Never used Tobacco e-Cigarette/Vaping Use: Never Used Second Hand Smoke Exposure: No Advance Directives: No Advance Directives Information Provided: No service: No Current occupational status: disabled Cognitive needs: No Hearing needs: No Vision needs: Yes Physical Exam Vital Signs: Vital Signs: Last Vital Signs Temp 97.6 F 07/15/23 20:43 Pulse 74 01/13/24 22:38 Resp 14 07/15/23 22:38 BP 109/66 07/15/23 20:43 Pulse Ox 98 07/15/23 20:43 O2 Del Method Room Air 07/15/23 20:43 BMI result Body Mass Index 26.8 Appearance: Alert. Oriented X3. No acute distress. Anxious Eyes: PERRLA, No Nystagmus ENT: Pharynx normal. Oral Mucosa moist Neck: Normal inspection. Neck supple. CVS: Normal heart rate and rhythm. Pulses normal. No murmur no arrhythmia Respiratory: No respiratory distress. Equal air entry bilateral, no wheezing/rales/rhonchi Abdomen: Soft and nontender. Bowel sounds are present, Skin: Skin warm and dry. Normal skin color. Normal skin turgor. Extremities: No lower extremity edema. No calf tenderness Neuro: Oriented X 3. Course Course Course Narrative: This is an RME: Additional HPI, ROS, PE not included below will be deferred to primary provider. 56 year old female with a history of asthma and diabetes presenting to the emergency department with a complaint of intermittent chest pain x 2-3 months. Also endorsing palpitations. Stabbing chest pain that lasts for several second. Also having numbness in her left arm 1 month ago had halter monitor for 24 hours. Alsdo endorsing wheezing. Plan: EKG, CXR, labs Medical Decision Making Medical Decision Making [facility] Narrative: Patient seems to be anxious guarding monitoring shows normal sinus rhythm but patient feeling palpitation heart rate was only 75 beats per minute workup is negative patient advised to follow with PCP Differential Diagnosis Differential Diagnoses: The differential diagnosis associated with the presentation includes Anxiety/PACs/PVCs Lab Data [facility] Lab Attestation statement: I reviewed the patient's lab results. 07/15/23 15:14 07/15/23 15:14 Labs: Lab Results 07/15/23 07/15/23 Range/Units 15:14 20:24 WBC 7.4 (4.8-10.8) X10*3/uL RBC 5.49 (4.20-5.50) X10*6/uL Hgb 15.5 (12.0-16.0) g/dl Hct 48.4 H (37.0-47.0) % MCV 88.2 (80.0-98.0) fL MCH 28.2 (27.0-33.0) pg MCHC 32.0 (31.0-35.0) g/dl RDW 13.0 (11.0-16.0) % Plt Count 167 (160-400) X10*3/uL MPV 11.6 (9.4-12.3) fL Immature Gran % (Auto) 0.1 (0.0-0.4) % Neut % (Auto) 60.4 (45-73) % Lymph % (Auto) 31.4 (20-40) % [place] % (Auto) 6.5 (2-11) % Eos % (Auto) 1.1 (0-4) % Baso % (Auto) 0.5 (0-2) % Lymph # (Auto) 2.3 (1.2-4.9) X10*3/uL [place] # (Auto) 0.5 (0.1-1.2) X10*3/uL Eos # (Auto) 0.1 (0.0-0.4) X10*3/uL Baso # (Auto) 0.0 (0.0-0.2) X10*3/uL Abs Immat Gran (auto) 0.01 (0.00-0.03) X10*3/uL Absolute Neuts (auto) 4.5 (2.0-8.3) x10*3/uL Absolute Nucleated RBC 0.000 (0.0-0.012) X10*3/uL Nucleated RBC % (auto) 0.0 (0.0-0.2) /100WBC PT 11.1 (11.1-13.3) SEC INR 0.9 (0.9-1.1) APTT 35.2 (26.0-36.4) SEC Sodium 141 (135-145) mmol/L Potassium 3.7 (3.3-5.1) mmol/L Chloride 104 (96-108) mmol/L Carbon Dioxide 28 (22-29) mmol/L Anion Gap 13 (12-20) BUN 20 H (9-16) mg/dL Creatinine 0.92 (0.5-1.4) mg/dL Estim Creat Clear Calc 59.6 Estimated GFR > 60 Random Glucose 239 H (60-115) mg/dL Calcium 10.3 H (8.4-10.2) mg/dL Total Bilirubin 0.3 (0.0-1.0) mg/dL Direct Bilirubin 0.1 (0.0-0.5) mg/dL AST 16 (5-31) U/L ALT 24 (0-31) U/L Alkaline Phosphatase 64 (39-117) U/L Troponin I High Sens < 2.7 < 2.7 (<3.5-17.0) ng/L Total Protein 7.9 (6.5-8.0) g/dL Albumin 4.3 (3.5-5.0) g/dL COVID-19 (SANDRITA) Negative (Negative) COVID-19 Clin Com See Note Influenza Type A (GRACIELA) Negative (Negative) Influenza Type B (GRACIELA) Negative (Negative) Influenza A & B Note See Note Independent Interpretation I performed an independent interpretation of an: EKG Interpretation: Normal sinus rhythm heart rate 75 beats per minute normal interval normal axis no acute ST T wave changes no acute ischemia Discharge Plan Discharge Clinical Impression: Atypical chest pain, Palpitations Patient Disposition: Home, Self-Care Instructions: Heart Palpitations (ED), Noncardiac Chest Pain (ED) Additional Instructions: workup is negative for any heart attack, no cardiac arrhythmia noticed Follow with PCP El an?lisis es negativo para cualquier ataque card?aco, no se observ? arritmia card?karen. Seguir con PCP Prescriptions: No Action (DME) toilet seat elevator See Rx Instructions .Route .MEDSUPPLY Qty: 1 0RF Rx Instructions: As directed fluticasone propionate [Flonase Allergy Relief] 50 mcg/actuation spray,suspension 1 spray intranasal DAILY Qty: 100 0RF Rx Instructions: administer into each nostril (DME) heating pads Pad See Rx Instructions .Route Qty: 1 0RF Rx Instructions: As directed calcium carbonate 600 mg calcium (1,500 mg) tablet 600 mg PO BID 90 Days Qty: 180 1RF cholecalciferol (vitamin D3) [Vitamin D3] 25 mcg (1,000 unit) tablet 25 mcg PO DAILY 90 Days Qty: 90 3RF (DME) Shower Chair Misc See Rx Instructions .Route Qty: 1 0RF Rx Instructions: As directed (DME) FreeStyle Lite Strips Strip See Rx Instructions .ROUTE .MEDSUPPLY Qty: 150 11RF Rx Instructions: As directed four times a day (DME) blood-glucose meter [FreeStyle Lite Meter] Kit See Rx Instructions .ROUTE .MEDSUPPLY Qty: 1 0RF Rx Instructions: use as directed to test blood sugar 4x per day (DME) lancets [FreeStyle Lancets] [facility] gauge [facility] See Rx Instructions .ROUTE .MEDSUPPLY Qty: 200 11RF Rx Instructions: 4 times a day hydrochlorothiazide 12.5 mg tablet 12.5 mg PO QAM Qty: 90 2RF albuterol sulfate [Ventolin HFA] 90 mcg/actuation HFA aerosol inhaler 2 puff inhalation Q6H PRN (Reason: shortness of breath or wheezing) 30 Days Qty: 8 1RF (DME) nebulizers [AeroEclipse II Nebulizer] [facility] [place] Rx Instructions .Route Qty: 1 0RF Rx Instructions: As directed insulin lispro [Humalog KwikPen Insulin] 100 unit/mL insulin pen 6 - 8 unit subcut TID Qty: 15 2RF atorvastatin 40 mg tablet 40 mg PO BEDTIME 90 Days Qty: 90 0RF benzonatate 100 mg capsule 100 mg PO BID PRN (Reason: cough) 5 Days Qty: 10 0RF albuterol sulfate 2.5 mg /3 mL (0.083 %) solution for nebulization 2.5 mg inhalation Q4-6H PRN (Reason: bronchospasm) Qty: 75 0RF cyanocobalamin (vitamin B-12) 500 mcg tablet,disintegrating 500 mcg sublingual DAILY 90 Days Qty: 90 1RF lidocaine 5 % adhesive patch,medicated 1 patch topical DAILY Qty: 15 0RF Rx Instructions: leave on most painful area for up to 12 hrs zolpidem 5 mg tablet 5 mg PO BEDTIME PRN lorazepam 0.5 mg tablet 0.5 mg PO DAILY PRN sertraline 100 mg tablet 100 mg PO DAILY insulin glargine [Lantus Solostar U-100 Insulin] 100 unit/mL (3 mL) insulin pen 40 unit subcut DAILY 90 Days Qty: 36 1RF canagliflozin 100 mg tablet 100 mg PO DAILY 30 Days Qty: 30 6RF montelukast 10 mg tablet 10 mg PO DAILY Qty: 90 3RF albuterol sulfate [ProAir HFA] 90 mcg/actuation HFA aerosol inhaler 2 puff inhalation Q4-6H PRN (Reason: shortness of breath or wheezing) Qty: 8.5 0RF metoclopramide HCl 5 mg tablet 5 mg PO DAILY 90 Days Qty: 90 3RF (DME) nebulizer accessories Misc See Rx Instructions .Route Qty: 1 0RF Rx Instructions: NEBULIZER FACE MASK ADULT, USE DIRECTED pioglitazone 45 mg tablet 45 mg PO DAILY 90 Days Qty: 90 0RF clotrimazole-betamethasone 1-0.05 % cream 1 appl topical BID 5 Days Qty: 45 0RF docusate sodium 100 mg capsule 100 mg PO BEDTIME Qty: 90 3RF polyethylene glycol 3350 [Miralax] 17 gram/dose powder 17 g PO DAILY 30 Days Qty: 510 3RF simethicone 125 mg capsule 125 mg PO BID-QID PRN (Reason: abdominal distention) Qty: 120 3RF sertraline 50 mg tablet 50 mg PO DAILY Linzess 290 mcg capsule 290 mcg PO QAM Qty: 30 4RF pantoprazole 40 mg tablet,delayed release (DR/EC) 40 mg PO DAILY Qty: 90 2RF Rx Instructions: take one tablet half an hour before breakfast famotidine [Pepcid] 20 mg tablet 20 mg PO BEDTIME Qty: 90 3RF Print Language: Mohawk
[2023-07-15 13:15] VITALS: BP 133/57; PULSE 77; RESP 18; TEMP 36.6; O2SAT 99; BMI 26.8
[2023-07-15 15:18] LABS: MANUAL DIFF FLAG NO
[2023-07-15 15:20] LABS: Basophils Percent Auto 0.5 % (0-2); Eosinophils Absolute Auto 0.1 X10*3/uL (0.0-0.4); Eosinophils Percent Auto 1.1 % (0-4); Hematocrit 48.4 % (37.0-47.0); Hemoglobin 15.5 g/dl (12.0-16.0); Imm Gran Abs Auto 0.01 X10*3/uL (0.00-0.03); Imm Gran Pct Auto 0.1 % (0.0-0.4); Lymphocytes Absolute Auto 2.3 X10*3/uL (1.2-4.9); Lymphocytes Percent Auto 31.4 % (20-40); Mean Corpuscular Hemoglobin 28.2 pg (27.0-33.0); Mean Corpuscular Volume 88.2 fL (80.0-98.0); Mean Platelet Volume 11.6 fL (9.4-12.3); Monocytes Absolute Auto 0.5 X10*3/uL (0.1-1.2); Monocytes Percent Auto 6.5 % (2-11); Neutrophils Absolute Auto 4.5 x10*3/uL (2.0-8.3); Neutrophils Percent Auto 60.4 % (45-73); Platelet Count 167 X10*3/uL (160-400); Red Blood Count 5.49 X10*6/uL (4.20-5.50); White Blood Count 7.4 X10*3/uL (4.8-10.8)
[2023-07-15 15:27] LABS: INTERNATIONAL NORM RATIO 0.9 (0.9-1.1); Prothrombin Time 11.1 SEC (11.1-13.3)
[2023-07-15 15:30] LABS: Partial Thromboplastin Time 35.2 SEC (26.0-36.4)
[2023-07-15 15:33] LABS: Alanine Aminotransferase 24 U/L (0-31); Albumin Level 4.3 g/dL (3.5-5.0); Alkaline Phosphatase 64 U/L (39-117); Anion Gap 13 (12-20); Aspartate Amino Transferase 16 U/L (5-31); Bilirubin Direct 0.1 mg/dL (0.0-0.5); Bilirubin Total 0.3 mg/dL (0.0-1.0); Blood Urea Nitrogen 20 mg/dL (9-16); Calcium 10.3 mg/dL (8.4-10.2); Carbon Dioxide 28 mmol/L (22-29); Chloride 104 mmol/L (96-108); Creatinine Clr Calc Pharmacy 59.6; Estimated Glomerular Filt Rate > 60; Glucose Random 239 mg/dL (60-115); Potassium 3.7 mmol/L (3.3-5.1); Sodium 141 mmol/L (135-145); Total Protein 7.9 g/dL (6.5-8.0)
[2023-07-15 15:40] LABS: COVID-19 Test Negative (Negative); IDNOW Serial# 58CA691E; IDNOW Serial# 9DB6401D; Influenza A Negative (Negative); Influenza B2 Negative (Negative)
[2023-07-15 15:41] LABS: Troponin-I High Sensitivity < 2.7 ng/L (<3.5-17.0)
--- NOTE | 2023-07-15 20:25 | MHC.EDTECH ---
Repeat trop obtained and sent to lab.
[2023-07-15 20:43] VITALS: BP 109/66; PULSE 74; RESP 16; TEMP 36.4; O2SAT 98
[2023-07-15 20:57] LABS: Troponin-I High Sensitivity < 2.7 ng/L (<3.5-17.0)
[2023-07-15 22:38] VITALS: PULSE 74; RESP 14
== END 2023-07-15 23:35 | disposition home or self-care (01) ==
PROVIDERS: Physician Assistant Medical; Emergency Provider Internal Medicine; PCP Internal Medicine
DX: R07.89 Other chest pain (principal); R00.2 Palpitations; F41.9 Anxiety disorder, unspecified; E11.9 Type 2 diabetes mellitus without complications; I10 Essential (primary) hypertension; E78.5 Hyperlipidemia, unspecified; Z79.4 Long term (current) use of insulin; Z79.02 Long term (current) use of antithrombotics/antiplatelets; Z79.899 Other long term (current) drug therapy
CPT/HCPCS: 36415; 71046; 80048; 80076; 84484; 85025; 85610; 85730; 87502; 87635; 93005; 99283; 99285

== ENCOUNTER → 2023-07-15 11:30 | Outpatient (BNV) | payer OTHER, SELFPAY | PROVIDERS: Emergency Provider Internal Medicine; PCP Internal Medicine; Visit Provider Internal Medicine Cardiovascular Disease | DX: R07.9 Chest pain, unspecified (principal) | CPT/HCPCS: 93010 ==

== ENCOUNTER 2023-08-02 11:28 | Outpatient (REF) | payer OTHER, SELFPAY ==
--- NOTE | ~2023-08-02 | US_ITS ---
EXAMINATION: US PELVIS COMPLETE CLINICAL INFORMATION: Pelvic and perineal pain. COMPARISON: Pelvic ultrasound dated 11/11/2022. TECHNIQUE: Transabdominal and transvaginal imaging were performed. Imaging is limited by body habitus. FINDINGS: The uterus is of normal size and echogenicity, measuring 7.6 x 2.7 x 4.6 cm. The uterus is anteverted and anteflexed. A regular, homogeneous endometrium is identified measuring 0.3 cm. FIBROIDS: There is 1 fibroid seen. 1. Location: Posterior fundus, subserosal. Size: 2.1 x 1.8 x 2.0 cm. Prior: 1.7 x 1.5 x 2.0 cm. Fibroid characteristics: Heterogeneously hypoechoic. The right ovary is normal in size and echotexture, measuring 2.3 x 1.4 x 1.9 cm for a volume of 3.1 mL. The left ovary is not visualized. There is no pelvic free fluid. No adnexal mass is seen. US/US pelvic and transvaginal IMPRESSION: 1. A small uterine fibroid is seen. 2. The left ovary is not visualized.
== END 2023-08-02 11:29 | disposition home or self-care (01) ==
LOC: HO.US 11:28
PROVIDERS: PCP Internal Medicine; Visit Provider Obstetrics & Gynecology
DX: R10.2 Pelvic and perineal pain (principal)
CPT/HCPCS: 76830; 76856

== ENCOUNTER 2023-08-07 10:34 | Outpatient (AMB) | payer OTHER, SELFPAY ==
--- NOTE | 2023-08-07 11:00 | A.OFFPC_ITS ---
Vital Signs 08/07/23 11:01 Height 5 ft 2 in Weight 147 lb 2 oz BMI 26.9 BP 122/62 Blood Pressure Location Lt brachial Position Sitting Pulse 65 Pulse Source Pulse Oximeter Pulse Oximetry (%) 98 Oxygen Delivery Method Room Air Intake Visit Reasons: f/u after COVID Intake Note: Dr. Dorman's patient is here for a follow-up after COVID from June 28, 2023, to July 05, 2023. They have a concern today regarding right ear pain for the past two days and swelling in the right arm. 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 Language: Tunisian Accompanied by: Self / Same As Patient Allergies Penicillins Allergy (Mild, Verified 08/07/23 11:15) RASH/DYSPNEA metformin Adverse Reaction (Intermediate, Verified 08/07/23 11:15) stomach upset Medication List - Last Reconciled 08/07/23 by Caleb Carlin PA-C albuterol sulfate 90 mcg/actuation (ProAir HFA) 2 puffs inhalation Q4-6H PRN albuterol sulfate 2.5 mg (3 mL) inhalation Q4-6H PRN atorvastatin 40 mg PO BEDTIME 90 days benzonatate 100 mg PO BID PRN 5 days blood sugar diagnostic (FreeStyle Lite Strips) As directed four times a day blood-glucose meter (FreeStyle Lite Meter kit) use as directed to test blood sugar 4x per day calcium carbonate 600 mg PO BID 90 days canagliflozin 100 mg PO DAILY 30 days cholecalciferol (vitamin D3) (Vitamin D3) 25 mcg PO DAILY 90 days clotrimazole-betamethasone 1-0.05 % 1 appl topical BID 5 days cyanocobalamin (vitamin B-12) 500 mcg sublingual DAILY 90 days docusate sodium 100 mg PO BEDTIME famotidine (Pepcid) 20 mg PO BEDTIME fluticasone propionate 50 mcg/actuation (Flonase Allergy Relief) 1 spray intranasal DAILY heating pads As directed hydrochlorothiazide 12.5 mg PO QAM insulin lispro (Humalog KwikPen (U-100) Insulin) 6 - 8 units (0.06 - 0.08 mL) subcut TID lancets (FreeStyle Lancets) 4 times a day Lantus Solostar U-100 Insulin (insulin glargine) 40 units (0.4 mL) subcut DAILY 90 days NS lidocaine 5% 1 patch topical DAILY linaclotide (Linzess) 290 mcg PO QAM lorazepam 0.5 mg PO DAILY PRN metoclopramide HCl 5 mg PO DAILY 90 days montelukast 10 mg PO DAILY nebulizer accessories NEBULIZER FACE MASK ADULT, USE DIRECTED nebulizers (AeroEclipse II Nebulizer) As directed pantoprazole 40 mg PO DAILY pioglitazone 45 mg PO DAILY 90 days polyethylene glycol 3350 (Miralax) 17 grams PO DAILY 30 days sertraline 100 mg PO DAILY sertraline 50 mg PO DAILY Shower Chair As directed simethicone 125 mg PO BID-QID PRN [toilet seat elevator As directed] Ventolin HFA 90 mcg/actuation (albuterol sulfate) 2 puffs inhalation Q6H PRN 30 days NS zolpidem 5 mg PO BEDTIME PRN Tobacco use date assessed: 06/06/23 HPI f/u after COVID HPI Details Patient is a 57-year-old Tunisian-speaking female here today a follow-up visit. Patient reports she was infected with COVID in 06/2023 , continues to have a mild cough, fatigued and her blood surgars have been elevated as of late. A1c has improved from 7.5-8.0. She is also concerned about noticing edema in her hands and lower extremities. She is interested in getting her kidney function checked. 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 Pernicious anemia Hearing loss Insomnia Depression with anxiety Moderate asthma Essential hypertension Polyarthralgia GERD (gastroesophageal reflux disease) Diabetes Hearing loss Surgical History History of cholecystectomy History of umbilical hernia repair History of foot surgery History of carpal tunnel release History of surgery on arm History of endometrial ablation History of tubal ligation Family History Mother Breast cancer Paternal Grandmother Breast cancer Brother Colon cancer Family/Other FH: mental illness Mental health disorder Father CAD (coronary artery disease) Social History Household Members: Children Housing: Apartment Alcohol intake: never Patient Tobacco Use Status: Never used Tobacco e-Cigarette/Vaping Use: Never Used Second Hand Smoke Exposure: No service: No Current occupational status: disabled Cognitive needs: No Hearing needs: No Vision needs: Yes Female Reproductive History Menstrual Age of Menarche: 11 Questionnaire PHQ-9 Over the last 2 weeks, how often have you been bothered by any of the following problems? 1. Little interest or pleasure in doing things: several days 2. Feeling down, depressed, or hopeless: several days 3. Trouble falling or staying asleep, or sleeping too much: not at all 4. Feeling tired or having little energy: not at all 5. Poor appetite or overeating: more than half the days 6. Feeling bad about yourself - or that you are a failure or have let yourself or your family down: not at all 7. Trouble concentrating on things, such as reading the newspaper or watching television: not at all 8. Moving or speaking so slowly that other people could have noticed. Or the opposite - being so fidgety or restless that you have been moving around a lot more than usual: not at all 9. Thoughts that you would be better off or of hurting yourself in some way: not at all Total score: 4 Depression Screening Interpretation: Negative Depression Screening Done: Yes 51700 - PHQ-9 Billing: Yes Source: Developed by Drs. Hernandez Love, Rebecca Peacock, Kalyan Becker and colleagues, with an educational julio from [employer]. Thrive Questionnaire Date Thrive assessed: 08/07/23 I am a: Patient What is your living situation today?: I have a steady place to live Within the past 12 months, did the food you bought not last and you didn't have the money to get more?: Never true Within the past 12 months, did you worry whether your food would run out before you got money to buy more?: Never true Do you have trouble paying for medicines?: No Do you have trouble getting transportation to medical appointments?: No Do you have trouble paying your heating and electricity bill?: No Do you have trouble taking care of your child, family member or friend?: No Do you have trouble with day-to-day activities such as bathing, preparing meals, shopping, managing finances, etc.?: No Are you currently unemployed and looking for a job?: No Are you interested in more education?: No Please select the resources that you would like help with: None Currently or been in a relationship where the following occur: no concerns reported THRIVE Score: 0 AUDIT C Alcohol Use Questionnaire (AUDIT-C) 1. How often do you have a drink containing alcohol?: Never Total Score: 0 Score Reviewed/Action Taken: No LIANA-7 AMB Questionnaire LIANA-7 Date LIANA - 7 assessed: 08/07/23 Feeling nervous, anxious, or on edge: 0 = Not at all Not being able to stop or control worryin = Not at all Worrying too much about different things: 0 = Not at all Trouble relaxin = Not at all Being so restless that it is hard to sit still: 0 = Not at all Becoming easily annoyed or irritable: 0 = Not at all Feeling afraid as if something awful might happen: 0 = Not at all Total LIANA-7 score (0-4 normal; 5-9 mild; 10-14 moderate; 15-21 severe): 0 Source: Developed by Drs. Hernandez Love, Rebecca Peacock, Kalyan Becker and colleagues, with an educational julio from [employer]. LIANA-7 Assessment Billing LIANA-7 Assessment Tool: LIANA-7 Assessment 25050 Review of Systems Const Denies headache(s) Eyes Denies loss of vision ENT Denies vertigo, Denies dizziness, Denies headache(s) and Denies sore throat Card Denies chest pain, Denies leg edema and Denies lightheadedness Resp Denies cough, Denies hemoptysis and Denies wheezing GI Denies abdominal pain, Denies melena, Denies constipation, Denies diarrhea and Denies vomiting Denies urinary frequency, Denies dysuria and Denies urinary urgency Musc Denies arthralgias, Denies joint swelling, Denies numbness and Denies tingling Neuro Denies Abnormal speech present, Denies behavioral changes, Denies vertigo, Denies dizziness, Denies headache(s), Denies loss of vision, Denies memory loss, Denies numbness and Denies tingling Psych Denies anxiety, Denies behavioral changes, Denies depression, Denies memory loss and Denies panic attacks Kranthi/Lymph Denies easy bleeding and Denies easy bruising Aller/Immun Denies wheezing Physical exam (Primary Care) Vital Signs: Last Vital Signs Pulse 65 08/07/23 11:01 BP 122/62 08/07/23 11:01 Pulse Ox 98 08/07/23 11:01 Oxygen Delivery Method Room Air 08/07/23 11:01 BMI result Body Mass Index 26.9 Tobacco/Smoking Status: Tobacco use Status Tobacco use date assessed 06/06/23 08/07/23 11:02 Patient Tobacco Use Status Never used Tobacco 08/07/23 11:02 e-Cigarette/Vaping Use Never Used 08/07/23 11:02 PHQ-9: PHQ-9 Score PHQ-9: Total score 4 08/07/23 11:07 Depression Screening Interpretation: Negative Thrive Assessment: Date of Thrive Assessment Date Thrive assessed 08/07/23 08/07/23 11:07 Currently or been in a relationship where the following occur: no concerns reported Const General: healthy appearing, no acute distress, alert and awake Nutritional Appearance: well nourished Orientation/consciousness: oriented to person, oriented to place and oriented to time HENMT Ears: TM's normal bilaterally General nose exam: Normal nasal mucous membranes and turbinates present Eyes Conjunctivae: conjunctivae normal Sclerae: sclerae normal Pupils: Equal, round and reactive pupils present Neck Neck: Yes no lymphadenopathy and Yes no JVD Thyroid: Thyroid normal Carotids: no bruits Resp Effort & Inspection: normal respiratory effort and not tachypneic Auscultation: no crackles, no rales, no rhonchi and no wheezes Cardio Rate: regular rate Rhythm: regular rhythm Heart sounds: no murmurs and normal S1 and S2 GI Palpation (GI): Soft to palpation, nontender, no hepatomegaly and no splenomegaly Auscultation: normal bowel sounds Skin General skin exam: no rashes or lesions noted and dry skin Neuro General: oriented to person, oriented to place and oriented to time Cranial nerves: Yes Equal, round and reactive pupils present Speech: No Abnormal speech present Gait exam (Neuro): Normal gait present Motor exam (neuro): no tremor noted Extrem Right upper extremity: full ROM Left upper extremity: full ROM Right lower extremity: full ROM; no edema Left lower extremity: full ROM; no edema Psych Mental Status: mental status grossly normal Speech and movement: Normal speech and movement present Affect: normal affect Attitude: cooperative Thought process: Normal thought process present Results AMB Hemoglobin A1c AMB Hemoglobin A1c 7.5 % Last Edit by WILBERT Renee on 08/07/23 11:18 Assessment and Plan Assessment & Plan (1) Post-COVID syndrome: Code(s): U09.9 - Post COVID-19 condition, unspecified Plan: Patient likely suffering a post COVID type syndrome. Reassured her about this. Given another chest x-ray to evaluate for any pulmonary infiltrate. 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 Looks like A1c at 7.5 (3) Edema: Code(s): R60.9 - Edema, unspecified Qualifiers: Edema type: unspecified Qualified Code(s): R60.9 - Edema, unspecified Plan: Patient reports he has noted edema over her hands and lower extremity. Will check her renal functions Orders: Orders XR chest 2V Today U09.9 - Post COVID-19 condition, unspecified AMB Hemoglobin A1c Today E11.42 - Type 2 diabetes mellitus with diabetic polyneuropathy Basic Metabolic Panel Today R60.9 - Edema, unspecified Medications: New benzonatate 200 mg PO TID 5 days 15 caps 0RF R05.9 - Cough, unspecified, U09.9 - Post COVID-19 condition, unspecified Coding Level of Care Code Est Pt Level 4 (86085) Diagnoses Post-COVID syndrome U09.9 Type 2 diabetes mellitus with hyperglycemia, without long-term current use of insulin E11.65 Diabetes mellitus complication status: with hyperglycemia Diabetes mellitus custodial insulin use: without custodial use Edema, unspecified type R60.9 Edema type: unspecified Additional Codes LIANA-7 Assessment Billing - LIANA-7 Assessment Tool: LIANA-7 Assessment 92616 ([id number])
[2023-08-07 11:01] VITALS: BP 122/62; PULSE 65; O2SAT 98; BMI 26.9
== END 2023-08-07 11:28 | disposition home or self-care (01) ==
PROVIDERS: PCP Internal Medicine; Visit Provider Physician Assistant
DX: U09.9 Post COVID-19 condition, unspecified (principal); E11.65 Type 2 diabetes mellitus with hyperglycemia; R60.9 Edema, unspecified; E11.42 Type 2 diabetes mellitus with diabetic polyneuropathy
CPT/HCPCS: 83036; 99214

== ENCOUNTER 2023-08-16 11:26 | Outpatient (AMB) | payer OTHER, SELFPAY ==
--- NOTE | 2023-08-16 11:29 | MHC.OFFVIS ---
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 GC/CT were negative. Pelvic ultrasound showed the following: The uterus is of normal size and echogenicity, measuring 7.6 x 2.7 x 4.6 cm. The uterus is anteverted and anteflexed. A regular, homogeneous endometrium is identified measuring 0.3 cm. FIBROIDS: There is 1 fibroid seen. 1. Location: Posterior fundus, subserosal. Size: 2.1 x 1.8 x 2.0 cm. Prior: 1.7 x 1.5 x 2.0 cm. Fibroid characteristics: Heterogeneously hypoechoic. The right ovary is normal in size and echotexture, measuring 2.3 x 1.4 x 1.9 cm for a volume of 3.1 mL. The left ovary is not visualized. There is no pelvic free fluid. No adnexal mass is seen. [facility] Medical History Ear discomfort Palpitations Overweight Type 2 diabetes mellitus with diabetic polyneuropathy B12 deficiency DM2 (diabetes mellitus, type 2) Tubular adenoma Moderate recurrent major depression Dyslipidemia Umbilical hernia Edema Arthritis Ear pain longterm (current) use of insulin Pernicious anemia Hearing loss Insomnia Depression with anxiety Moderate asthma Essential hypertension Polyarthralgia GERD (gastroesophageal reflux disease) Diabetes Hearing loss Surgical History History of cholecystectomy History of umbilical hernia repair History of foot surgery History of carpal tunnel release History of surgery on arm History of endometrial ablation History of tubal ligation Family History Mother Breast cancer Paternal Grandmother Breast cancer Brother Colon cancer Family/Other FH: mental illness Mental health disorder Father CAD (coronary artery disease) Social History Household Members: Children Housing: Apartment Alcohol intake: never Patient Tobacco Use Status: Never used Tobacco e-Cigarette/Vaping Use: Never Used Second Hand Smoke Exposure: No service: No Current occupational status: disabled Cognitive needs: No Hearing needs: No Vision needs: Yes Female Reproductive History Menstrual Age of Menarche: 11 Review of Systems Const All systems reviewed & are unremarkable except as noted in HPI and below Reports as per HPI and Reports no additional complaints GI Reports no additional complaints Reports no additional complaints Assessment & Plan Assessment & Plan (1) Pelvic pain: Comment: Myoma Code(s): R10.2 - Pelvic and perineal pain Plan: Discussed with the patient the findings on pelvic ultrasound & the risk of myosarcoma; The size of the myoma on pelvic ultrasound done in 10/22 was 2.1 x 1.7 x 1.4, on 11/22 ultrasound measured 2 cm myoma and most recent ultrasound myoma measured 2.1 x 2 x 1.8 cm. discussed with the patient the options of treatment including expectant management versus hysterectomy; the pros and cons, risks benefits of each approach were discussed with the patient including the fact that in cases of myosarcoma, surgical treatment can lead to early diagnosis and positively affects the prognosis; after further discussion, the patient decided to proceed with expectant management. Will repeat pelvic ultrasound periodically. Instructions given to patient to call in case any of the following occurs: pressure symptoms, abnormal uterine bleeding, pelvic pain; and to schedule a future office follow-up appointment for reassessment and to order a repeat ultrasound . All questions answered, the patient verbalized understanding and agreed with the plan . (2) Urinary frequency: Code(s): R35.0 - Frequency of micturition Plan: Urine dip done in the office showed +3 glucose otherwise negative. Discussed with the patient the finding on urine dip, recommended for the patient to contact her PCP to check her blood sugar and manage accordingly. All questions answered, the patient verbalized understanding Quality Reporting (2019) Adult ([facility] 13808/24/68) Smoking risk assessment performed?: Yes Patient Tobacco Use Status: Never used Tobacco Coding Level of Care Code Est Pt Level 3 (92723) Diagnoses Pelvic pain R10.2 Urinary frequency R35.0
[2023-08-16 11:36] VITALS: BP 110/70; BMI 26.6
== END 2023-08-16 12:33 | disposition home or self-care (01) ==
LOC: HO.HWS 11:26
PROVIDERS: PCP Internal Medicine; Visit Provider Obstetrics & Gynecology
DX: R10.2 Pelvic and perineal pain (principal); R35.0 Frequency of micturition
CPT/HCPCS: 99213

== ENCOUNTER → 2023-08-16 11:26 | Outpatient (BNVA) | payer OTHER, SELFPAY | PROVIDERS: PCP Internal Medicine; Visit Provider Obstetrics & Gynecology | DX: R10.2 Pelvic and perineal pain (principal); R35.0 Frequency of micturition | CPT/HCPCS: 99212 ==

== ENCOUNTER 2023-09-07 10:31 | Outpatient (AMB) | payer OTHER, SELFPAY ==
--- NOTE | 2023-09-07 11:38 | MHC.OFFWIV ---
Intake Vital Signs 09/07/23 11:40 Height 5 ft 2 in Weight 146 lb BMI 26.7 BP 120/82 Blood Pressure Location Lt brachial Position Sitting Pulse 78 Pulse Source Pulse Oximeter Pulse Oximetry (%) 98 Oxygen Delivery Method Room Air Intake Visit Reasons: EP RT ear pain (masked in lobby) Intake Note: Patient here for right ear pain, she states she does usually use hearing aids but hasnt been using them because her ear has been so bothersome which has been like that for about 1 week. Patient Tobacco Use Status: Never used Tobacco Allergies Penicillins Allergy (Mild, Verified 09/07/23 11:42) RASH/DYSPNEA metformin Adverse Reaction (Intermediate, Verified 09/07/23 11:42) stomach upset Do you need a note to return to daycare/school/sports/work: No HPI EP RT ear pain (masked in lobby) HPI Details This is a 57-year-old patient who presents today with a one-week history of right ear pain. Usually wears hearing aids, however has them off today. Denies any fever or chills. Denies any upper respiratory symptoms. [facility] Medical History Ear discomfort Palpitations Overweight Type 2 diabetes mellitus with diabetic polyneuropathy B12 deficiency DM2 (diabetes mellitus, type 2) Tubular adenoma Moderate recurrent major depression Dyslipidemia Umbilical hernia Edema Arthritis Ear pain detention (current) use of insulin Pernicious anemia Hearing loss Insomnia Depression with anxiety Moderate asthma Essential hypertension Polyarthralgia GERD (gastroesophageal reflux disease) Diabetes Hearing loss Surgical History History of cholecystectomy History of umbilical hernia repair History of foot surgery History of carpal tunnel release History of surgery on arm History of endometrial ablation History of tubal ligation Family History Mother Breast cancer Paternal Grandmother Breast cancer Brother Colon cancer Family/Other FH: mental illness Mental health disorder Father CAD (coronary artery disease) Social History Household Members: Children Housing: Apartment Alcohol intake: never Patient Tobacco Use Status: Never used Tobacco e-Cigarette/Vaping Use: Never Used Second Hand Smoke Exposure: No service: No Current occupational status: disabled Cognitive needs: No Hearing needs: No Vision needs: Yes Female Reproductive History Menstrual Age of Menarche: 11 Review of Systems Const All systems reviewed & are unremarkable except as noted in HPI and below Physical Exam Vital Signs: Last Vital Signs Pulse 78 09/07/23 11:40 BP 120/82 09/07/23 11:40 Pulse Ox 98 09/07/23 11:40 Oxygen Delivery Method Room Air 09/07/23 11:40 BMI result Body Mass Index 26.7 Const General: cooperative and no acute distress HEENT Head: Yes normal to inspection Ears: hearing grossly normal bilaterally, external ears normal, TM normal on the left and TM abnormal (Right TM erythematous, purulent effusion) General nose exam: Normal external nose present and Normal nasal mucous membranes and turbinates present Throat: Yes posterior oropharynx abnormal (mild erythema) Neck Neck: Yes no lymphadenopathy Resp Effort & Inspection: normal respiratory effort and able to speak in complete sentences Auscultation: clear to auscultation bilaterally Cardio Palpation: normal PMI Rate: regular rate Rhythm: regular rhythm Skin General skin exam: no rashes or lesions noted Extrem General: Yes capillary refill normal and Yes no clubbing, cyanosis or edema Psych Appearance: grossly normal Mental Status: mental status grossly normal Speech and movement: Normal speech and movement present Assessment & Plan Assessment & Plan (1) Right otitis media with effusion: Code(s): H65.91 - Unspecified nonsuppurative otitis media, right ear Plan: Right OM - will start on Doxy 10 days due to abc allergies. Advised Tylenol/Motrin as needed for any pain/fever. If she does not improve with treatment or if symptoms worsen, she should return to the clinic for further evaluation. She verbalizes understanding and agrees to plan. Medications: New doxycycline hyclate 100 mg PO BID 20 tabs 0RF 10 days H65.91 - Unspecified nonsuppurative otitis media, right ear Coding Level of Care Code Est Pt Level 3 (14541) Diagnoses Right otitis media with effusion H65.91
[2023-09-07 11:40] VITALS: BP 120/82; PULSE 78; O2SAT 98; BMI 26.7
== END 2023-09-07 12:30 | disposition home or self-care (01) ==
PROVIDERS: PCP Internal Medicine; Visit Provider Nurse Practitioner Family
DX: H65.91 Unspecified nonsuppurative otitis media, right ear (principal)
CPT/HCPCS: 99213

== ENCOUNTER 2023-10-05 13:22 | Outpatient (AMB) | payer OTHER, SELFPAY ==
--- NOTE | 2023-10-05 13:30 | MHC.OFFVIS ---
Intake Vital Signs 10/05/23 13:34 Height 5 ft 2 in Weight 145 lb 8.081 oz BMI 26.6 BP 116/72 Intake Visit Reasons: vaginal discharge ,frequent urination Information Systems Operator Required: Yes Information Systems Operator Language: Artist Mannequin Coloring Name: Roseann GRIFFITH Information Interpreted: non-clinical & clinical Medical Cost Consultant: Medical Cost Consultant Present (Roseann GRIFFITH) Accompanied by: Self / Same As Patient Allergies Penicillins Allergy (Mild, Verified 10/05/23 13:40) RASH/DYSPNEA metformin Adverse Reaction (Intermediate, Verified 10/05/23 13:40) stomach upset Post menopausal: Yes HPI HPI Comments History of Present Illness Details Presenting complaining of suprapubic pelvic pain associated with urine incontinence, upon laughing, coughing or lifting heavy object, urge incontinence and urgency with nocturia PFSH Medical History Ear discomfort Palpitations Overweight Type 2 diabetes mellitus with diabetic polyneuropathy B12 deficiency DM2 (diabetes mellitus, type 2) Tubular adenoma Moderate recurrent major depression Dyslipidemia Umbilical hernia Edema Arthritis Ear pain snf (current) use of insulin Pernicious anemia Hearing loss Insomnia Depression with anxiety Moderate asthma Essential hypertension Polyarthralgia GERD (gastroesophageal reflux disease) Diabetes Hearing loss Surgical History History of cholecystectomy History of umbilical hernia repair History of foot surgery History of carpal tunnel release History of surgery on arm History of endometrial ablation History of tubal ligation Family History Mother Breast cancer Paternal Grandmother Breast cancer Brother Colon cancer Family/Other FH: mental illness Mental health disorder Father CAD (coronary artery disease) Social History Household Members: Children Housing: Apartment Alcohol intake: never Patient Tobacco Use Status: Never used Tobacco e-Cigarette/Vaping Use: Never Used Second Hand Smoke Exposure: No service: No Current occupational status: disabled Cognitive needs: No Hearing needs: No Vision needs: Yes Female Reproductive History Menstrual Age of Menarche: 11 Review of Systems Const All systems reviewed & are unremarkable except as noted in HPI and below Physical Exam Vital Signs: Last Vital Signs BP 116/72 10/05/23 13:34 BMI result Body Mass Index 26.6 General: Yes no CVA tenderness External Female Exam: normal external appearance and normal appearance of the urethra Speculum Exam - Vagina: normal appearance of the vagina, normal palpation, no lesions and no masses Speculum Exam - Cervix: normal appearance of the cervix, normal palpation, no lesions, no masses and nontender Bimanual exam- vagina & uterus: normal bimanual exam, normal palpation, uterine size normal, normal palpation, uterine shape normal, No Cervical tenderness present and non-tender Bimanual Exam- Adnexa, other: normal adnexae Back/Spine/Pelvis Back: no CVA tenderness Results AMB Urinalysis Dipstick UR Leukocytes Negative Last Edit by Roseann Carrera CMA on 10/05/23 13:42 UR Nitrite Negative Last Edit by Roseann Carrera CMA on 10/05/23 13:42 UR Urobilinogen Normal Last Edit by oRseann Carrera CMA on 10/05/23 13:42 UR Protein Negative Last Edit by Roseann Carrera CMA on 10/05/23 13:42 UR Ph 6.5 Last Edit by Roseann Carrera CMA on 10/05/23 13:42 UR Blood Negative Last Edit by Roseann Carrera CMA on 10/05/23 13:42 UR Specific [place] 1.025 Last Edit by Roseann Carrera CMA on 10/05/23 13:42 UR Ketone Negative Last Edit by Roseann Carrera CMA on 10/05/23 13:42 UR Bilirubin Negative Last Edit by Roseann Carrera CMA on 10/05/23 13:42 UR Glucose 2000 Last Edit by Roseann Carrera CMA on 10/05/23 13:42 Assessment & Plan Assessment & Plan (1) Pelvic pain: Code(s): R10.2 - Pelvic and perineal pain Plan: Urine dip done in the office was negative. GC and chlamydia taken and pelvic ultrasound ordered. Discussed with the patient the differential diagnosis of pelvic pain including but not limited to adnexal, uterine masses, pelvic infections (PID), GI the (Irritable bowel syndrome, diverticulitis, others), musculoskeletal, myofascial pain abdominal wall , adhesions, endometriosis, psychological and others causes. Will check results and treat accordingly. All questions answered, the patient verbalized understanding. Instructed the patient to schedule follow-up appointment in 2 weeks (2) Urine incontinence: Code(s): R32 - Unspecified urinary incontinence Plan: Discussed with the patient the different types of Urine incontinence, stress urinary incontinence, intrinsic sphincter deficiency, overactive bladder and its work up. We will refer to Urology. All questions answered, the patient verbalized understanding. Orders: Orders AMB Urinalysis Dipstick Today R35.0 - Frequency of micturition CT NG by PCR Today R35.0 - Frequency of micturition Bacterial Vaginosis Panel Today R35.0 - Frequency of micturition US pelvic and transvaginal Today R10.2 - Pelvic and perineal pain Referrals Urology Referral R32 - Unspecified urinary incontinence Quality Reporting (2019) Adult ([facility] 13808/24/68) Smoking risk assessment performed?: Yes Patient Tobacco Use Status: Never used Tobacco Coding Level of Care Code Est Pt Level 3 (40477) Diagnoses Pelvic pain R10.2 Urine incontinence R32
[2023-10-05 13:34] VITALS: BP 116/72; BMI 26.6
== END 2023-10-05 13:53 | disposition home or self-care (01) ==
PROVIDERS: PCP Internal Medicine; Visit Provider Obstetrics & Gynecology
DX: R10.2 Pelvic and perineal pain (principal); R32 Unspecified urinary incontinence; R35.0 Frequency of micturition
CPT/HCPCS: 99213

== ENCOUNTER 2023-10-05 13:22 | Outpatient (REF) | payer OTHER, SELFPAY ==
[2023-10-05 17:55] LABS: CT PCR NOT DETECTED (Not Detect.); NG PCR NOT DETECTED (Not Detect.)
[2023-10-06 14:00] LABS: BV Int Neg Control Negative (Negative); BV Int Pos Control Positive (Positive)
== END 2023-10-05 13:23 | disposition home or self-care (01) ==
LOC: HO.LNP 13:22
PROVIDERS: PCP Internal Medicine; Visit Provider Obstetrics & Gynecology
DX: R10.2 Pelvic and perineal pain (principal); R35.0 Frequency of micturition; R32 Unspecified urinary incontinence
CPT/HCPCS: 0353U; 81002; 87480; 87510; 87660; 99212

== ENCOUNTER 2023-10-06 07:32 | Outpatient (REF) | payer OTHER, SELFPAY ==
[2023-10-06 09:17] LABS: Alanine Aminotransferase 28 U/L (0-31); Albumin Level 3.8 g/dL (3.5-5.0); Alkaline Phosphatase 62 U/L (39-117); Anion Gap 11 (12-20); Aspartate Amino Transferase 21 U/L (5-31); Bilirubin Total 0.5 mg/dL (0.0-1.0); Blood Urea Nitrogen 18 mg/dL (9-16); Calcium 9.4 mg/dL (8.4-10.2); Carbon Dioxide 31 mmol/L (22-29); Chloride 104 mmol/L (96-108); Cholesterol 117 mg/dL (<200); Estimated Glomerular Filt Rate > 60; Glucose Fasting 164 mg/dL (60-99); HDL Cholesterol 33 mg/dL (>40); LDL Cholesterol Calculated 66 mg/dL (<100); Potassium 3.9 mmol/L (3.3-5.1); Sodium 142 mmol/L (135-145); Total Protein 6.9 g/dL (6.5-8.0); Triglycerides 92 mg/dL (<150)
[2023-10-06 09:35] LABS: TSH reflex Free T4 3.42 uIU/mL (0.32-4.0)
== END 2023-10-06 07:33 | disposition home or self-care (01) ==
LOC: HO.LAB 07:32
PROVIDERS: PCP Internal Medicine; Visit Provider Nurse Practitioner Family
DX: E11.42 Type 2 diabetes mellitus with diabetic polyneuropathy (principal); E78.5 Hyperlipidemia, unspecified
CPT/HCPCS: 36415; 80053; 80061; 84443

== ENCOUNTER 2023-10-09 09:17 | Outpatient (AMB) | payer OTHER, SELFPAY ==
[2023-10-09 09:31] VITALS: BP 102/60; BMI 27.2
--- NOTE | 2023-10-09 09:31 | MHC.PC.OV ---
Vital Signs 10/09/23 09:31 Height 5 ft 2 in Weight 149 lb BMI 27.2 BP 102/60 Blood Pressure Location Lt brachial Position Sitting Intake Visit Reasons: lower back pain Intake Note: Patient here c/o lower back pain, right arm pain Political Worker Required: No Accompanied by: Self / Same As Patient Allergies Penicillins Allergy (Mild, Verified 10/09/23 09:50) RASH/DYSPNEA metformin Adverse Reaction (Intermediate, Verified 10/09/23 09:50) stomach upset Medication List - Last Reconciled 10/09/23 by Norma Bland MD albuterol sulfate 90 mcg/actuation (ProAir HFA) 2 puffs inhalation Q4-6H PRN albuterol sulfate 2.5 mg (3 mL) inhalation Q4-6H PRN atorvastatin 40 mg PO BEDTIME 90 days blood sugar diagnostic (FreeStyle Lite Strips) As directed four times a day blood-glucose meter (FreeStyle Lite Meter kit) use as directed to test blood sugar 4x per day calcium carbonate 600 mg PO BID 90 days canagliflozin 100 mg PO DAILY 30 days cholecalciferol (vitamin D3) (Vitamin D3) 25 mcg PO DAILY 90 days clotrimazole-betamethasone 1-0.05 % 1 appl topical BID 5 days cyanocobalamin (vitamin B-12) 500 mcg sublingual DAILY 90 days docusate sodium 100 mg PO BEDTIME famotidine (Pepcid) 20 mg PO BEDTIME fluticasone propionate 50 mcg/actuation (Flonase Allergy Relief) 1 spray intranasal DAILY heating pads As directed hydrochlorothiazide 12.5 mg PO QAM incontinence pad, liner, disp Use 1 pad twice a day insulin lispro (Humalog KwikPen (U-100) Insulin) 6 - 8 units (0.06 - 0.08 mL) subcut TID lancets (FreeStyle Lancets) 4 times a day Lantus Solostar U-100 Insulin (insulin glargine) 40 units (0.4 mL) subcut DAILY 90 days NS lidocaine 5% 1 patch topical DAILY linaclotide (Linzess) 290 mcg PO QAM lorazepam 0.5 mg PO DAILY PRN metoclopramide HCl 5 mg PO DAILY 90 days montelukast 10 mg PO DAILY nebulizer accessories NEBULIZER FACE MASK ADULT, USE DIRECTED nebulizers (AeroEclipse II Nebulizer) As directed pantoprazole 40 mg PO DAILY pioglitazone 45 mg PO DAILY 90 days polyethylene glycol 3350 (Miralax) 17 grams PO DAILY 30 days sertraline 100 mg PO DAILY sertraline 50 mg PO DAILY Shower Chair As directed simethicone 125 mg PO BID-QID PRN tirzepatide (Mounjaro) 5 mg (0.5 mL) subcut QWEEK [toilet seat elevator As directed] Ventolin HFA 90 mcg/actuation (albuterol sulfate) 2 puffs inhalation Q6H PRN 30 days NS zolpidem 5 mg PO BEDTIME PRN Tobacco use date assessed: 10/09/23 Dental Screening Dental Screen Date: 10/09/23 Did you have a dental visit in the last 12 months?: No Did you have a dental problem in the last 6 months where you did not have access to dental care?: No Was dental information given to patient?: Patient has dentist HPI HPI Comments History of Present Illness Details This is a 57-year-old female with diabetes mellitus type 2 on long-term current use of insulin, moderate recurrent major depression, hypertension, GERD and hyperlipidemia that comes today complaining of right shoulder pain that has been bothering her for few weeks. She also has chronic low back pain that has been stable for a while. Last A1c was elevated and I will increase Lantus from 40 to 42 units. She also discontinue Mounjaro because of the news on TV and I told her to restarted. Depression has been stable with SSRIs. GERD stable with PPIs. LDL within goal with statins. Denies any chest pain or shortness of breath. Has full active range of motion. [facility] Medical History (Updated 10/09/23 @ 10:30 by Norma Bland MD) Ear discomfort Palpitations Overweight Type 2 diabetes mellitus with diabetic polyneuropathy B12 deficiency DM2 (diabetes mellitus, type 2) Tubular adenoma Moderate recurrent major depression Dyslipidemia Umbilical hernia Edema Arthritis Ear pain FCI (current) use of insulin Pernicious anemia Hearing loss Insomnia Depression with anxiety Moderate asthma Essential hypertension Polyarthralgia GERD (gastroesophageal reflux disease) Diabetes Hearing loss Surgical History History of cholecystectomy History of umbilical hernia repair History of foot surgery History of carpal tunnel release History of surgery on arm History of endometrial ablation History of tubal ligation Family History Mother Breast cancer Paternal Grandmother Breast cancer Brother Colon cancer Family/Other FH: mental illness Mental health disorder Father CAD (coronary artery disease) Social History Household Members: Children Housing: Apartment Alcohol intake: never Patient Tobacco Use Status: Never used Tobacco e-Cigarette/Vaping Use: Never Used Second Hand Smoke Exposure: No service: No Current occupational status: disabled Cognitive needs: No Hearing needs: No Vision needs: Yes Female Reproductive History Menstrual Age of Menarche: 11 Questionnaire Thrive Questionnaire Date Thrive assessed: 08/07/23 LIANA-7 AMB Questionnaire LIANA-7 Date LIANA - 7 assessed: 08/07/23 Source: Developed by Drs. Hernandez Love, Rebecca Peacock, Kalyan Becker and colleagues, with an educational julio from [employer]. Review of Systems Const All systems reviewed & are unremarkable except as noted in HPI and below Eyes Reports no additional complaints, Denies change in vision and Denies other visual disturbances Card Denies chest pain at rest, Denies chest pain with activity, Denies edema, Denies irregular heart rhythm, Denies claudication, Denies dyspnea, Denies dyspnea on exertion, Denies orthopnea, Denies paroxysmal nocturnal dyspnea and Denies slow heart rate Resp Denies cough, Denies dyspnea and Denies dyspnea on exertion Physical exam (Primary Care) Vital Signs: Last Vital Signs BP 102/60 10/09/23 09:31 BMI result Body Mass Index 27.2 Tobacco/Smoking Status: Tobacco use Status Tobacco use date assessed 10/09/23 10/09/23 09:38 Patient Tobacco Use Status Never used Tobacco 10/09/23 09:38 e-Cigarette/Vaping Use Never Used 10/09/23 09:38 Thrive Assessment: Date of Thrive Assessment Date Thrive assessed 08/07/23 10/09/23 09:38 Resp Effort & Inspection: normal respiratory effort Auscultation: clear to auscultation bilaterally Cardio Jugular venous distension: no JVD Rate: regular rate Rhythm: regular rhythm Heart sounds: S1 normal heart sound present and S2 normal heart sound present Extrem General: Yes full ROM Assessment and Plan Assessment & Plan (1) DM2 (diabetes mellitus, type 2): Code(s): E11.9 - Type 2 diabetes mellitus without complications Qualifiers: Diabetes mellitus shelter insulin use: without joint terminal attack controller use Diabetes mellitus complication status: with hyperglycemia Qualified Code(s): E11.65 - Type 2 diabetes mellitus with hyperglycemia Plan: Continue Invokana and Actos. Restart Mounjaro. Continue short-acting insulin. Increase Lantus from 40 units to 42 units. Follow-up with endocrinology. A1c goal is equal or less than 7% (2) Moderate recurrent major depression: Code(s): F33.1 - Major depressive disorder, recurrent, moderate Plan: Continue SSRIs. (3) Essential hypertension: Code(s): I10 - Essential (primary) hypertension Plan: Continue hydrochlorothiazide. Blood pressure goal is equal or less than 130/80. (4) Hyperlipidemia LDL goal <70: Code(s): E78.5 - Hyperlipidemia, unspecified Plan: Continue statins. LDL goal is less than 70. (5) Right shoulder pain: Code(s): M25.511 - Pain in right shoulder Qualifiers: Chronicity: acute Qualified Code(s): M25.511 - Pain in right shoulder Plan: X-ray ordered. Referred to Ortho. Orders: Orders XR shoulder RT min 2V Today M25.511 - Pain in right shoulder Microalbumin, Random (w Creat) Today E11.9 - Type 2 diabetes mellitus without complications Referrals Orthopedics Referral M25.511 - Pain in right shoulder Medications: Changed From Lantus Solostar U-100 Insulin (insulin glargine) 40 units (0.4 mL) subcut DAILY 90 days 36 mL 1RF NS E11.65 - Type 2 diabetes mellitus with hyperglycemia To Lantus Solostar U-100 Insulin (insulin glargine) 42 units (0.42 mL) subcut DAILY 90 days 37.8 mL 1RF NS E11.65 - Type 2 diabetes mellitus with hyperglycemia Refilled tirzepatide (Mounjaro) 5 mg (0.5 mL) subcut QWEEK 2 mL 4RF Coding Level of Care Code Est Pt Level 4 (86721) Diagnoses Type 2 diabetes mellitus with hyperglycemia, without long-term current use of insulin E11.65 Diabetes mellitus joint terminal attack controller insulin use: without shelter use Diabetes mellitus complication status: with hyperglycemia Moderate recurrent major depression F33.1 Essential hypertension I10 Hyperlipidemia LDL goal <70 E78.5 Acute pain of right shoulder M25.511 Chronicity: acute Time Spent (min) 25
== END 2023-10-09 10:01 | disposition home or self-care (01) ==
PROVIDERS: PCP Internal Medicine; Visit Provider Internal Medicine
DX: E11.65 Type 2 diabetes mellitus with hyperglycemia (principal); F33.1 Major depressive disorder, recurrent, moderate; Z79.4 Long term (current) use of insulin; I10 Essential (primary) hypertension; E78.5 Hyperlipidemia, unspecified; M25.511 Pain in right shoulder
CPT/HCPCS: 99214

== ENCOUNTER 2023-10-12 12:42 | Outpatient (REF) | payer OTHER, SELFPAY ==
--- NOTE | ~2023-10-12 | XR_ITS ---
EXAMINATION: XR SHOULDER, RIGHT CLINICAL INFORMATION: Pain in right shoulder. COMPARISON: None available. TECHNIQUE: Four views of the right shoulder. FINDINGS: Moderate degenerative changes in the acromioclavicular joint with joint space narrowing and hypertrophic change. Glenohumeral alignment is preserved with mild hypertrophic change along the glenoid. Degenerative changes in the imaged upper thoracic spine. Ossicle along the superolateral aspect of the humeral head is characteristic of focal hypertrophic spurring. XR/XR shoulder RT min 2V IMPRESSION: Moderate degenerative changes in the acromioclavicular joint.
--- NOTE | ~2023-10-12 | US_ITS ---
EXAMINATION: US PELVIS CLINICAL INFORMATION: Pelvic and perineal pain. COMPARISON: Pelvic ultrasound 08/02/2023 and 11/11/2022. TECHNIQUE: Ultrasound of the pelvis is performed using both transabdominal and transvaginal transducers along with Doppler. Transvaginal imaging is performed due to inadequate visualization transabdominally. FINDINGS: Uterus: The uterus is anteverted and measures 6.8 x 2.8 x 3.4 cm. The double wall endometrial thickness is 1.3 mm. The uterus is smooth in contour and has normal myometrial echogenicity. A single fundal fibroid is present which has decreased in size now measuring 1.2 x 1.3 x 1.2 cm (previously 2.1 x 1.8 x 2.06). Adnexa: Both ovaries are visualized. There is normal color flow to the adnexa. There is no ovarian torsion. There is no pelvic ascites or fluid collection. Right ovary measures 2.0 x 1.5 x 1.2 cm for a volume of 1.9 mL. Left ovary measures 1.5 x 1.1 x 1.0 cm for a volume of 0.8 mL. US/US pelvic and transvaginal IMPRESSION: Single fundal fibroid has decreased in size.
== END 2023-10-12 12:43 | disposition home or self-care (01) ==
LOC: HO.US 12:42
PROVIDERS: PCP Internal Medicine; Visit Provider Obstetrics & Gynecology
DX: R10.2 Pelvic and perineal pain (principal); M25.511 Pain in right shoulder
CPT/HCPCS: 73030; 76830; 76856

== ENCOUNTER 2023-10-17 13:29 | Emergency (ER) | payer OTHER, SELFPAY ==
--- NOTE | ~2023-10-17 | XR_ITS ---
EXAMINATION: XR CHEST 2 VIEWS CLINICAL INFORMATION: Cough. COMPARISON: Chest radiographs dated 07/15/2023. TECHNIQUE: Frontal and lateral views of the chest were obtained. FINDINGS: The heart, great vessels, pulmonary vasculature and mediastinum are normal. The lungs show no focal infiltrate, effusion or pneumothorax. There is no acute osseous abnormality. There is multi-level thoracic and upper lumbar spondylosis. XR/XR chest 2V IMPRESSION: No active cardiopulmonary disease.
[2023-10-17 13:57] VITALS: BP 115/63; PULSE 74; RESP 18; TEMP 36.9; O2SAT 100; BMI 27.4
--- NOTE | 2023-10-17 13:57 | ED.GENADULT ---
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 She reports using her inhalers without any improvement She also endorses a dry cough. Denies any fevers, chills, sick contacts Patient denies any chest pain Related Data Home Medications ?Medication ?Instructions ?Recorded ?Confirmed lorazepam 0.5 mg tablet 0.5 mg PO DAILY PRN 04/16/20 10/09/23 zolpidem 5 mg tablet 5 mg PO BEDTIME PRN 04/16/20 10/09/23 sertraline 100 mg tablet 100 mg PO DAILY 06/17/20 10/09/23 sertraline 50 mg tablet 50 mg PO DAILY 04/05/23 10/09/23 Previous Rx's ?Medication ?Instructions ?Recorded clotrimazole-betamethasone 1 1 appl topical BID 5 days #45 grams 11/25/20 %-0.05 % topical cream toilet seat elevator #1 ea 08/02/21 fluticasone propionate 50 1 spray intranasal DAILY #100 mL 03/20/22 mcg/actuation nasal spray,suspension (Flonase Allergy Relief) metoclopramide HCl 5 mg tablet 5 mg PO DAILY 90 days #90 tabs 04/26/22 lidocaine 5 % topical patch 1 patch topical DAILY #15 ea 05/30/22 heating pads #1 ea 05/31/22 calcium carbonate 600 mg calcium 600 mg PO BID 90 days #180 tabs 10/25/22 (1,500 mg) tablet cholecalciferol (vitamin D3) 25 25 mcg PO DAILY 90 days #90 tabs 10/28/22 mcg (1,000 unit) tablet (Vitamin D3) docusate sodium 100 mg capsule 100 mg PO BEDTIME #90 caps 11/22/22 polyethylene glycol 3350 17 17 g PO DAILY 30 days #510 grams 11/22/22 gram/dose oral powder (Miralax) simethicone 125 mg capsule 125 mg PO BID-QID PRN abdominal 11/22/22 distention #120 caps nebulizer accessories #1 ea 11/30/22 Shower Chair #1 ea 12/21/22 blood sugar diagnostic (FreeStyle #150 ea 12/21/22 Lite Strips) blood-glucose meter (FreeStyle #1 ea 12/21/22 Lite Meter kit) lancets 28 gauge (FreeStyle #200 ea 12/21/22 Lancets) montelukast 10 mg tablet 10 mg PO DAILY #90 tabs 01/09/23 Ventolin HFA 90 mcg/actuation 2 puff inhalation Q6H PRN 02/21/23 aerosol inhaler (albuterol sulfate) shortness of breath or wheezing 30 days #8 grams nebulizers (AeroEclipse II #1 ea 03/30/23 Nebulizer) insulin lispro 100 unit/mL 6 - 8 unit (0.06 - 0.08 mL) subcut 04/21/23 subcutaneous pen (Humalog KwikPen TID #15 mL (U-100) Insulin) albuterol sulfate 90 mcg/actuation 2 puff inhalation Q4-6H PRN 06/06/23 aerosol inhaler (ProAir HFA) shortness of breath or wheezing #8.5 grams famotidine 20 mg tablet (Pepcid) 20 mg PO BEDTIME #90 tabs 06/23/23 linaclotide 290 mcg capsule 290 mcg PO QAM #30 caps 06/23/23 (Linzess) pantoprazole 40 mg tablet,delayed 40 mg PO DAILY #90 tabs 06/23/23 release albuterol sulfate 2.5 mg/3 mL 2.5 mg (3 mL) inhalation Q4-6H PRN 06/29/23 (0.083 %) solution for nebulization bronchospasm #75 mL cyanocobalamin (vitamin B-12) 500 500 mcg sublingual DAILY 90 days 07/13/23 mcg disintegrating #90 tabs tablet,sublingual canagliflozin 100 mg tablet 100 mg PO DAILY 30 days #30 tabs 07/18/23 atorvastatin 40 mg tablet 40 mg PO BEDTIME 90 days #90 tabs 08/05/23 pioglitazone 45 mg tablet 45 mg PO DAILY 90 days #90 tabs 08/17/23 incontinence pad, liner, disp #60 ea 10/07/23 Lantus Solostar U-100 Insulin 100 42 unit (0.42 mL) subcut DAILY 90 10/09/23 unit/mL (3 mL) subcutaneous pen days #37.8 mL (insulin glargine) tirzepatide 5 mg/0.5 mL 5 mg (0.5 mL) subcut QWEEK #2 mL 10/09/23 subcutaneous pen injector (Meenuro) hydrochlorothiazide 12.5 mg tablet 12.5 mg PO QAM #90 tabs 10/13/23 doxycycline hyclate 100 mg tablet 100 mg PO BID 5 days #10 tabs 10/16/23 prednisone 20 mg tablet 40 mg (2 x 20 mg) PO DAILY #8 tabs 10/17/23 Allergies Allergy/AdvReac Type Severity Reaction Status Date / Time Penicillins Allergy Mild RASH/DYSPNE Verified 10/17/23 13:59 A metformin AdvReac Intermediate stomach Verified 10/17/23 13:59 upset Review of Systems Constitutional: Constitutional: Denies body ache(s), Denies chills, Denies fever(s) and Denies headache(s) ENT: Denies headache(s) and Denies sore throat Cardiovascular: Cardiovascular: Denies chest pain and Reports dyspnea Respiratory: Respiratory: Reports cough, Reports dyspnea and Reports wheezing Gastrointestinal: Gastrointestinal: Denies abdominal pain, Denies nausea and Denies vomiting Musculoskeletal: Musculoskeletal: Denies back pain Integumentary/Breasts: Skin/Breast: Denies rash Neurologic: Denies headache(s) Allergic/Immunologic: Allergic/Immunologic: Reports wheezing PMFSH Past Medical History Medical History Ear discomfort Palpitations Overweight Type 2 diabetes mellitus with diabetic polyneuropathy B12 deficiency DM2 (diabetes mellitus, type 2) Tubular adenoma Moderate recurrent major depression Dyslipidemia Umbilical hernia Edema Arthritis Ear pain snf (current) use of insulin Pernicious anemia Hearing loss Insomnia Depression with anxiety Moderate asthma Essential hypertension Polyarthralgia GERD (gastroesophageal reflux disease) Diabetes Hearing loss Surgical History History of cholecystectomy History of umbilical hernia repair History of foot surgery History of carpal tunnel release History of surgery on arm History of endometrial ablation History of tubal ligation Family History Family History Mother Breast cancer Paternal Grandmother Breast cancer Brother Colon cancer Family/Other FH: mental illness Mental health disorder Father CAD (coronary artery disease) Social History Social History Household Members: Children Housing: Apartment Alcohol intake: never Patient Tobacco Use Status: Never used Tobacco e-Cigarette/Vaping Use: Never Used Second Hand Smoke Exposure: No Advance Directives: No Advance Directives Information Provided: No service: No Current occupational status: disabled Cognitive needs: No Hearing needs: No Vision needs: Yes Physical Exam ED Vital Signs: Vital Signs - 24 hr 10/17/23 13:57 10/17/23 16:59 Temperature 98.4 F 98.8 F Pulse Rate 74 81 Respiratory Rate 18 20 Blood Pressure 115/63 Pulse Oximetry 100 Oxygen Delivery Method Room Air Room Air Oxygen Flow Rate 100 BMI result Body Mass Index 27.4 Const General: healthy appearing, comfortable, no acute distress, alert and awake Nutritional Appearance: well nourished Orientation/consciousness: patient oriented x3 HENMT Head: Yes normocephalic and Yes atraumatic Eyes Eyelids: Yes eyelids normal Conjunctivae: conjunctivae normal Sclerae: sclerae normal Corneas: corneas normal Pupils: Equal, round and reactive pupils present EOM: EOMs intact bilaterally Neck Neck: Yes full ROM Resp Other: Faint expiratory wheeze on exam her best in the bilateral bases Effort & Inspection: normal respiratory effort, able to speak in complete sentences and not labored Skin General skin exam: elasticity normal Neuro General: patient oriented x3 Cranial nerves: Yes Equal, round and reactive pupils present and Yes Bilaterally intact EOM present Cognition (Neuro): normal cognition Extrem Other: Moving all extremities well without any obvious deformities Course Course Course Narrative: RME- 57-year-old female with past medical history significant for asthma presents for evaluation of cough and shortness of breath. Patient has wheezing in the bilateral bases. Plan for viral swabs and chest x-ray Medications Administered Discontinued Medications Generic Name Dose Route Start Last Admin Trade Name Freq PRN Reason Stop Dose Admin Prednisone 60 mg 10/17/23 16:51 10/17/23 17:02 Prednisone 20 Mg Tablet PO 10/17/23 16:52 60 mg ONCE ONE Administration Medical Decision Making Medical Decision Making [facility] Narrative: Patient presents for evaluation of shortness of breath, history of asthma. She had a chest x-ray that shows no evidence of pleural effusions, pneumonia. She has negative viral swabs. Symptoms are most likely related to an asthma exacerbation triggered by allergies. I discussed this with the patient and recommend that she take an [id number] allergy medication. She will be given a breathing treatment and discharged with steroids Differential Diagnosis Differential Diagnoses: The differential diagnosis associated with the presentation includes Upper respiratory infection Viral syndrome Asthma exacerbation Pneumonia Bronchitis Lab Data [facility] Lab Attestation statement: I reviewed the patient's lab results. Viral swab negative Labs: Lab Results 10/17/23 Range/Units 14:42 Influenza Type A (PCR) NEGATIVE (Negative) Influenza Type B (PCR) NEGATIVE (Negative) RSV RNA Qual (PCR) NEGATIVE (Negative) SARS-CoV-2 RNA (RT-PCR) NEGATIVE (Negative) Independent Interpretation I performed an independent interpretation of an: Plain X-Ray (No focal infiltrates) Radiology Impression Discussion of test interpretation with radiology: I have reviewed the radiologist's reading. Radiologist Impression: No acute cardiopulmonary process Discharge Plan Discharge Clinical Impression: Acute asthma exacerbation Patient Disposition: Home, Self-Care Instructions: Asthma (ED) Additional Instructions: Your viral swabs were negative. Your chest x-ray was clear. Continue to use your inhalers and nebulizers as prescribed. Take prednisone as directed. This will increase your blood sugar Check your blood sugar frequently and avoid sugary foods Prescriptions: New prednisone 20 mg tablet 40 mg PO DAILY Qty: 8 0RF No Action (DME) toilet seat elevator See Rx Instructions .Route .MEDSUPPLY Qty: 1 0RF Rx Instructions: As directed fluticasone propionate [Flonase Allergy Relief] 50 mcg/actuation spray,suspension 1 spray intranasal DAILY Qty: 100 0RF Rx Instructions: administer into each nostril (DME) heating pads Pad See Rx Instructions .Route Qty: 1 0RF Rx Instructions: As directed calcium carbonate 600 mg calcium (1,500 mg) tablet 600 mg PO BID 90 Days Qty: 180 1RF cholecalciferol (vitamin D3) [Vitamin D3] 25 mcg (1,000 unit) tablet 25 mcg PO DAILY 90 Days Qty: 90 3RF (DME) Shower Chair Misc See Rx Instructions .Route Qty: 1 0RF Rx Instructions: As directed (DME) FreeStyle Lite Strips Strip See Rx Instructions .ROUTE .MEDSUPPLY Qty: 150 11RF Rx Instructions: As directed four times a day (DME) blood-glucose meter [FreeStyle Lite Meter] Kit See Rx Instructions .ROUTE .MEDSUPPLY Qty: 1 0RF Rx Instructions: use as directed to test blood sugar 4x per day (DME) lancets [FreeStyle Lancets] 28 [place] [facility] [place] Rx Instructions .ROUTE .MEDSUPPLY Qty: 200 11RF Rx Instructions: 4 times a day albuterol sulfate [Ventolin HFA] 90 mcg/actuation HFA aerosol inhaler 2 puff inhalation Q6H PRN (Reason: shortness of breath or wheezing) 30 Days Qty: 8 1RF (DME) nebulizers [AeroEclipse II Nebulizer] [facility] [place] See Rx Instructions .Route Qty: 1 0RF Rx Instructions: As directed insulin lispro [Humalog KwikPen Insulin] 100 unit/mL insulin pen 6 - 8 unit subcut TID Qty: 15 2RF albuterol sulfate 2.5 mg /3 mL (0.083 %) solution for nebulization 2.5 mg inhalation Q4-6H PRN (Reason: bronchospasm) Qty: 75 0RF cyanocobalamin (vitamin B-12) 500 mcg tablet,disintegrating 500 mcg sublingual DAILY 90 Days Qty: 90 1RF canagliflozin 100 mg tablet 100 mg PO DAILY 30 Days Qty: 30 6RF atorvastatin 40 mg tablet 40 mg PO BEDTIME 90 Days Qty: 90 0RF pioglitazone 45 mg tablet 45 mg PO DAILY 90 Days Qty: 90 2RF (DME) incontinence pad, liner, disp Pad See Rx Instructions .Route Qty: 60 11RF Rx Instructions: Use 1 pad twice a day hydrochlorothiazide 12.5 mg tablet 12.5 mg PO QAM Qty: 90 2RF doxycycline hyclate 100 mg tablet 100 mg PO BID 5 Days Qty: 10 0RF lidocaine 5 % adhesive patch,medicated 1 patch topical DAILY Qty: 15 0RF Rx Instructions: leave on most painful area for up to 12 hrs zolpidem 5 mg tablet 5 mg PO BEDTIME PRN lorazepam 0.5 mg tablet 0.5 mg PO DAILY PRN sertraline 100 mg tablet 100 mg PO DAILY montelukast 10 mg tablet 10 mg PO DAILY Qty: 90 3RF albuterol sulfate [ProAir HFA] 90 mcg/actuation HFA aerosol inhaler 2 puff inhalation Q4-6H PRN (Reason: shortness of breath or wheezing) Qty: 8.5 0RF metoclopramide HCl 5 mg tablet 5 mg PO DAILY 90 Days Qty: 90 3RF (DME) nebulizer accessories Misc See Rx Instructions .Route Qty: 1 0RF Rx Instructions: NEBULIZER FACE MASK ADULT, USE DIRECTED Mounjaro 5 mg/0.5 mL pen injector 5 mg subcut QWEEK Qty: 2 4RF insulin glargine [Lantus Solostar U-100 Insulin] 100 unit/mL (3 mL) insulin pen 42 unit subcut DAILY 90 Days Qty: 37.8 1RF clotrimazole-betamethasone 1-0.05 % cream 1 appl topical BID 5 Days Qty: 45 0RF docusate sodium 100 mg capsule 100 mg PO BEDTIME Qty: 90 3RF polyethylene glycol 3350 [Miralax] 17 gram/dose powder 17 g PO DAILY 30 Days Qty: 510 3RF simethicone 125 mg capsule 125 mg PO BID-QID PRN (Reason: abdominal distention) Qty: 120 3RF sertraline 50 mg tablet 50 mg PO DAILY Linzess 290 mcg capsule 290 mcg PO QAM Qty: 30 4RF pantoprazole 40 mg tablet,delayed release (DR/EC) 40 mg PO DAILY Qty: 90 2RF Rx Instructions: take one tablet half an hour before breakfast famotidine [Pepcid] 20 mg tablet 20 mg PO BEDTIME Qty: 90 3RF Print Language: Polish
[2023-10-17 15:34] LABS: Influenza A PCR NEGATIVE (Negative); Influenza B PCR NEGATIVE (Negative); Resp Syncy Virus RNA Qual PCR NEGATIVE (Negative); SARS COV2 PCR INHOUSE NEGATIVE (Negative)
[2023-10-17 16:59] VITALS: PULSE 81; RESP 20; TEMP 37.1
[2023-10-17] MEDS: predniSONE 20 MG TABLET 60 MG PO (17:02)
--- NOTE | 2023-10-17 17:08 | PC.NURSE ---
PT REPORTS SOB AND COUGH THAT HAS BEEN GOING ON FOR A FEW DAYS, SHE SAYS THAT HER ASTHMA PUMP HAS NOT HELPED. HX OF SAME.
[2023-10-17 17:35] VITALS: PULSE 67; RESP 16; O2SAT 98
[2023-10-17] MEDS: Albuterol/Iprat 2.5/0.5MG 3 ML AMPUL.NEB INHALE (17:36)
[2023-10-17 18:04] VITALS: BP 115/63; PULSE 81; RESP 20; TEMP 37.1; O2SAT 100
== END 2023-10-17 18:05 | disposition home or self-care (01) ==
PROVIDERS: Physician Assistant; Emergency Provider Emergency Medicine Emergency Medical Services; PCP Internal Medicine
DX: J45.901 Unspecified asthma with (acute) exacerbation (principal); I10 Essential (primary) hypertension; E11.9 Type 2 diabetes mellitus without complications; Z79.4 Long term (current) use of insulin
CPT/HCPCS: 0241U; 71046; 94640; 99284

== ENCOUNTER 2023-10-20 08:57 | Outpatient (REF) | payer OTHER, SELFPAY ==
--- NOTE | ~2023-10-20 | XR_ITS ---
EXAMINATION: XR CHEST CLINICAL INFORMATION: Post Covid COMPARISON: Chest radiograph from 10/17/2023 TECHNIQUE: 2 views of the chest were obtained. FINDINGS: Slight right basilar atelectasis. No pneumothorax. Trachea is midline. Cardiac mediastinal silhouette is not enlarged. No large pleural effusion. Degenerative changes of the thoracolumbar spine. Soft tissues are unremarkable. XR/XR chest 2V IMPRESSION: Slight right basilar atelectasis.
[2023-10-20 11:13] LABS: Anion Gap 8 (12-20); Blood Urea Nitrogen 22 mg/dL (9-16); Calcium 9.7 mg/dL (8.4-10.2); Carbon Dioxide 31 mmol/L (22-29); Chloride 106 mmol/L (96-108); Estimated Glomerular Filt Rate > 60; Glucose Random 98 mg/dL (60-115); Potassium 3.4 mmol/L (3.3-5.1); Sodium 142 mmol/L (135-145)
[2023-10-20 11:32] LABS: Creatinine Urine 191.27 mg/dL; Microalbum/Creatinine Ratio Ur 5.7 ug/mg cr (<30)
== END 2023-10-20 08:58 | disposition home or self-care (01) ==
LOC: HO.XRAY 08:57
PROVIDERS: Physician Assistant; PCP Internal Medicine; Visit Provider Internal Medicine
DX: R60.9 Edema, unspecified (principal); U09.9 Post COVID-19 condition, unspecified; E11.9 Type 2 diabetes mellitus without complications
CPT/HCPCS: 36415; 71046; 80048; 82043; 82570

== ENCOUNTER 2023-10-23 10:55 | Outpatient (AMB) | payer OTHER, SELFPAY ==
--- NOTE | 2023-10-23 10:57 | A.OFFPC_ITS ---
Vital Signs 10/23/23 10:58 Height 5 ft 2 in Weight 152 lb 0.8 oz BMI 27.8 BP 112/60 Blood Pressure Location Lt brachial Position Sitting Pulse 84 Pulse Source Pulse Oximeter Pulse Oximetry (%) 97 Oxygen Delivery Method Room Air Intake Visit Reasons: pe Intake Note: Patient is here today for a physical. 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 Accompanied by: Self / Same As Patient Allergies Penicillins Allergy (Mild, Verified 10/23/23 11:26) RASH/DYSPNEA metformin Adverse Reaction (Intermediate, Verified 10/23/23 11:26) stomach upset Medication List - Last Reconciled 10/23/23 by Norma Bland MD albuterol sulfate 90 mcg/actuation (ProAir HFA) 2 puffs inhalation Q4-6H PRN albuterol sulfate 2.5 mg (3 mL) inhalation Q4-6H PRN atorvastatin 40 mg PO BEDTIME 90 days blood sugar diagnostic (FreeStyle Lite Strips) As directed four times a day blood-glucose meter (FreeStyle Lite Meter kit) use as directed to test blood sugar 4x per day calcium carbonate 600 mg PO BID 90 days canagliflozin 100 mg PO DAILY 30 days cholecalciferol (vitamin D3) (Vitamin D3) 25 mcg PO DAILY 90 days clotrimazole-betamethasone 1-0.05 % 1 appl topical BID 5 days cyanocobalamin (vitamin B-12) 500 mcg sublingual DAILY 90 days docusate sodium 100 mg PO BEDTIME doxycycline hyclate 100 mg PO BID 5 days famotidine (Pepcid) 20 mg PO BEDTIME fluticasone propionate 50 mcg/actuation (Flonase Allergy Relief) 1 spray intranasal DAILY heating pads As directed hydrochlorothiazide 12.5 mg PO QAM incontinence pad, liner, disp Use 1 pad twice a day insulin lispro (Humalog KwikPen (U-100) Insulin) 6 - 8 units (0.06 - 0.08 mL) subcut TID lancets (FreeStyle Lancets) 4 times a day Lantus Solostar U-100 Insulin (insulin glargine) 42 units (0.42 mL) subcut DAILY 90 days NS lidocaine 5% 1 patch topical DAILY linaclotide (Linzess) 290 mcg PO QAM lorazepam 0.5 mg PO DAILY PRN metoclopramide HCl 5 mg PO DAILY 90 days montelukast 10 mg PO DAILY nebulizer accessories NEBULIZER FACE MASK ADULT, USE DIRECTED nebulizers (AeroEclipse II Nebulizer) As directed pantoprazole 40 mg PO DAILY pioglitazone 45 mg PO DAILY 90 days polyethylene glycol 3350 (Miralax) 17 grams PO DAILY 30 days prednisone 40 mg (2 x 20 mg) PO DAILY sertraline 100 mg PO DAILY sertraline 50 mg PO DAILY Shower Chair As directed simethicone 125 mg PO BID-QID PRN tirzepatide (Mounjaro) 5 mg (0.5 mL) subcut QWEEK [toilet seat elevator As directed] Ventolin HFA 90 mcg/actuation (albuterol sulfate) 2 puffs inhalation Q6H PRN 30 days NS zolpidem 5 mg PO BEDTIME PRN Tobacco use date assessed: 10/23/23 Dental Screening Dental Screen Date: 10/23/23 Did you have a dental visit in the last 12 months?: Yes Did you have a dental problem in the last 6 months where you did not have access to dental care?: No Was dental information given to patient?: Patient has dentist HPI HPI Comments History of Present Illness Details This is a 57-year-old female with diabetes mellitus type 2 on long-term current use of insulin and moderate recurrent major depression that comes for her physical exam. A1c was elevated the last time but fasting blood glucose has improved. LDL within goal. Depression stable with sertraline 150 mg once a day. Last mammogram was October 2022 and she has an appointment for November 2023. Last Pap smear was 2022 and was normal. Last colonoscopy was 2020. No chest pain or shortness a breath. [facility] Medical History Ear discomfort Palpitations Overweight Type 2 diabetes mellitus with diabetic polyneuropathy B12 deficiency DM2 (diabetes mellitus, type 2) Tubular adenoma Moderate recurrent major depression Dyslipidemia Umbilical hernia Edema Arthritis Ear pain penitentiary (current) use of insulin Pernicious anemia Hearing loss Insomnia Depression with anxiety Moderate asthma Essential hypertension Polyarthralgia GERD (gastroesophageal reflux disease) Diabetes Hearing loss Surgical History History of cholecystectomy History of umbilical hernia repair History of foot surgery History of carpal tunnel release History of surgery on arm History of endometrial ablation History of tubal ligation Family History Mother Breast cancer Paternal Grandmother Breast cancer Brother Colon cancer Family/Other FH: mental illness Mental health disorder Father CAD (coronary artery disease) Social History Household Members: Children Housing: Apartment Alcohol intake: never Patient Tobacco Use Status: Never used Tobacco e-Cigarette/Vaping Use: Never Used Second Hand Smoke Exposure: No service: No Current occupational status: disabled Cognitive needs: No Hearing needs: No Vision needs: Yes Female Reproductive History Menstrual Age of Menarche: 11 Questionnaire Thrive Questionnaire Date Thrive assessed: 10/23/23 I am a: Patient What is your living situation today?: I have a steady place to live Within the past 12 months, did the food you bought not last and you didn't have the money to get more?: Never true Within the past 12 months, did you worry whether your food would run out before you got money to buy more?: Never true Do you have trouble paying for medicines?: No Do you have trouble getting transportation to medical appointments?: No Do you have trouble paying your heating and electricity bill?: No Do you have trouble taking care of your child, family member or friend?: No Do you have trouble with day-to-day activities such as bathing, preparing meals, shopping, managing finances, etc.?: No Are you currently unemployed and looking for a job?: No Are you interested in more education?: No Please select the resources that you would like help with: None Currently or been in a relationship where the following occur: no concerns reported THRIVE Score: 0 AUDIT C Alcohol Use Questionnaire (AUDIT-C) 1. How often do you have a drink containing alcohol?: Never 3. How often do you have six or more drinks on one occasion?: Never Total Score: 0 Score Reviewed/Action Taken: No LIANA-7 AMB Questionnaire LIANA-7 Date LIANA - 7 assessed: 10/23/23 Feeling nervous, anxious, or on edge: 0 = Not at all Not being able to stop or control worryin = Not at all Worrying too much about different things: 0 = Not at all Trouble relaxin = Not at all Being so restless that it is hard to sit still: 0 = Not at all Becoming easily annoyed or irritable: 0 = Not at all Feeling afraid as if something awful might happen: 0 = Not at all Total LIANA-7 score (0-4 normal; 5-9 mild; 10-14 moderate; 15-21 severe): 0 Source: Developed by Drs. Hernandez Love, Rebecca Peacock, Kalyan Becker and colleagues, with an educational julio from [email or web address]. LIANA-7 Assessment Billing LIANA-7 Assessment Tool: LIANA-7 Assessment 58447 Review of Systems Const All systems reviewed & are unremarkable except as noted in HPI and below Eyes Reports no additional complaints, Denies change in vision and Denies other visual disturbances Card Denies chest pain at rest, Denies chest pain with activity, Denies edema, Denies irregular heart rhythm, Denies claudication, Denies dyspnea, Denies dyspnea on exertion, Denies orthopnea, Denies paroxysmal nocturnal dyspnea and Denies slow heart rate Resp Denies cough, Denies dyspnea and Denies dyspnea on exertion GI Denies abdominal pain, Denies change in bowel habits, Denies excessive flatus, Denies nausea and Denies vomiting Physical exam (Primary Care) Vital Signs: Last Vital Signs Pulse 84 10/23/23 10:58 BP 112/60 10/23/23 10:58 Pulse Ox 97 10/23/23 10:58 Oxygen Delivery Method Room Air 10/23/23 10:58 BMI result Body Mass Index 27.8 Tobacco/Smoking Status: Tobacco use Status Tobacco use date assessed 10/23/23 10/23/23 11:04 Patient Tobacco Use Status Never used Tobacco 10/23/23 11:04 e-Cigarette/Vaping Use Never Used 10/23/23 11:04 Thrive Assessment: Date of Thrive Assessment Date Thrive assessed 10/23/23 10/23/23 11:04 Currently or been in a relationship where the following occur: no concerns reported Const Orientation/consciousness: patient oriented x3 HENMT Head: Yes normal to inspection, Yes normocephalic and Yes atraumatic Ears: external ears normal Eyes General: appearance normal, both eyes and all related structures Eyelids: Yes eyelids normal Conjunctivae: conjunctivae normal Neck Neck: Yes normal visual inspection and Yes supple Resp Effort & Inspection: normal respiratory effort Auscultation: clear to auscultation bilaterally Cardio Jugular venous distension: no JVD Rate: regular rate Rhythm: regular rhythm Heart sounds: S1 normal heart sound present and S2 normal heart sound present GI Inspection: Yes normal to inspection Palpation (GI): Soft to palpation and nontender Auscultation: normal bowel sounds Skin General skin exam: no rashes or lesions noted Neuro General: patient oriented x3 and no focal motor deficits Extrem General: Yes full ROM Psych Appearance: grossly normal Assessment and Plan Assessment & Plan (1) Physical exam: Code(s): Z00.00 - Encounter for general adult medical examination without abnormal findings Plan: Repeat in a year. (2) DM2 (diabetes mellitus, type 2): Code(s): E11.9 - Type 2 diabetes mellitus without complications Qualifiers: Diabetes mellitus fpc insulin use: without intermodal owner operator truck driver use Diabetes mellitus complication status: with hyperglycemia Qualified Code(s): E11.65 - Type 2 diabetes mellitus with hyperglycemia Plan: Continue insulin. Continue Invokana. A1c goal is equal or less than 7% (3) Moderate recurrent major depression: Code(s): F33.1 - Major depressive disorder, recurrent, moderate Plan: Continue SSRIs. Orders: Orders Microalbumin, Random (w Creat) 4 Months E11.9 - Type 2 diabetes mellitus without complications Lipid Panel 4 Months E78.5 - Hyperlipidemia, unspecified Vitamin B12 and Folate 4 Months E53.8 - Deficiency of other specified B group vitamins Vitamin D 25-OH Total 4 Months E55.9 - Vitamin D deficiency, unspecified Comprehensive [place]. Panel Fast 4 Months E11.42 - Type 2 diabetes mellitus with diabetic polyneuropathy Medications: Refilled [toilet seat elevator] As directed 1 ea 0RF M25.50 - Pain in unspecified joint Shower Chair As directed 1 ea 0RF M19.90 - Unspecified osteoarthritis, unspecified site, M25.50 - Pain in unspecified joint Coding Level of Care Code Est Pt Prev Care 40-64y(63264) Diagnoses Physical exam Z00.00 Type 2 diabetes mellitus with hyperglycemia, without long-term current use of insulin E11.65 Diabetes mellitus intermodal owner operator truck driver insulin use: without intermodal owner operator truck driver use Diabetes mellitus complication status: with hyperglycemia Moderate recurrent major depression F33.1 Additional Codes LIANA-7 Assessment Billing - LIANA-7 Assessment Tool: LIANA-7 Assessment [id number] ([id number]) Time Spent (min) 33
[2023-10-23 10:58] VITALS: BP 112/60; PULSE 84; O2SAT 97; BMI 27.8
== END 2023-10-23 11:40 | disposition home or self-care (01) ==
PROVIDERS: PCP Internal Medicine; Visit Provider Internal Medicine
DX: Z00.00 Encounter for general adult medical examination without abnormal findings (principal); E11.65 Type 2 diabetes mellitus with hyperglycemia; F33.1 Major depressive disorder, recurrent, moderate; E55.9 Vitamin D deficiency, unspecified
CPT/HCPCS: 99396

== ENCOUNTER 2023-10-30 11:06 | Outpatient (AMB) | payer OTHER, SELFPAY ==
[2023-10-30 11:21] VITALS: BP 116/70; BMI 27.4
--- NOTE | 2023-10-30 11:21 | MHC.OFFVIS ---
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 No complaints. Last Pap/HPV was negative in 10/23 Last Mammogram was BI-RADS 2 in 10/23 Last Colonoscopy was in 04/22 , the recommendation was to repeat in 3 years, repeat screening colonoscopy is scheduled in 03/26 [facility] Medical History Ear discomfort Palpitations Overweight Type 2 diabetes mellitus with diabetic polyneuropathy B12 deficiency DM2 (diabetes mellitus, type 2) Tubular adenoma Moderate recurrent major depression Dyslipidemia Umbilical hernia Edema Arthritis Ear pain assisted (current) use of insulin Pernicious anemia Hearing loss Insomnia Depression with anxiety Moderate asthma Essential hypertension Polyarthralgia GERD (gastroesophageal reflux disease) Diabetes Hearing loss Surgical History History of cholecystectomy History of umbilical hernia repair History of foot surgery History of carpal tunnel release History of surgery on arm History of endometrial ablation History of tubal ligation Family History Mother Breast cancer Paternal Grandmother Breast cancer Brother Colon cancer Family/Other FH: mental illness Mental health disorder Father CAD (coronary artery disease) Social History Household Members: Children Housing: Apartment Alcohol intake: never Patient Tobacco Use Status: Never used Tobacco e-Cigarette/Vaping Use: Never Used Second Hand Smoke Exposure: No service: No Current occupational status: disabled Cognitive needs: No Hearing needs: No Vision needs: Yes Female Reproductive History Menstrual Age of Menarche: 11 Menopause type: natural Total pregnancies: 7 Full term: 7 Number of Living Children: 5 Ab spontaneous: 1 Date of last pap smear: 10/25/22 Date of Mammogram: 10/29/22 Review of Systems Const All systems reviewed & are unremarkable except as noted in HPI and below Card Reports as per HPI Resp Reports as per HPI GI Reports as per HPI and Reports no additional complaints Reports as per HPI Physical Exam Vital Signs: Last Vital Signs BP 116/70 10/30/23 11:21 BMI result Body Mass Index 27.4 Const General: cooperative, healthy appearing and comfortable Chest Chest palpation & inspection: normal inspection of the chest and normal palpation of entire chest wall Breast/axilla inspection: normal inspection of the breasts and normal inspection of the axillae Breast/axilla palpation: normal palpation of the breasts, normal palpation of the axillae and no axillary lymphadenopathy Resp Effort & Inspection: normal respiratory effort Auscultation: clear to auscultation bilaterally Percussion: percussion normal Cardio Palpation: normal PMI Rate: regular rate Rhythm: regular rhythm Heart sounds: no murmurs and no rubs Peripheral pulses: Peripheral pulses 2+ throughout GI Inspection: Yes normal to inspection Palpation (GI): Soft to palpation, nontender, no guarding, not rigid and No hepatosplenomegaly present Percussion: Yes normal to percussion Auscultation: normal bowel sounds Rectal Exam - Female: deferred General: Yes bladder normal to palpation External Female Exam: No lesion Speculum Exam - Vagina: normal appearance of the vagina, normal palpation, normal vaginal discharge and not erythematous Speculum Exam - Cervix: normal appearance of the cervix and normal palpation Bimanual exam- vagina & uterus: normal bimanual exam, normal palpation, uterine size normal, bladder normal to palpation, consistency normal and normal palpation Bimanual Exam- Adnexa, other: normal adnexae, no masses and no tenderness Quality Reporting (2019) Adult ([facility] 138/08/24/68) Smoking risk assessment performed?: Yes Patient Tobacco Use Status: Never used Tobacco Assessment & Plan Assessment & Plan (1) Well woman exam: Code(s): Z01.419 - Encounter for gynecological examination (general) (routine) without abnormal findings Category: Medical Plan: Co testing not indicated this year. Counseled the patient about the recommended dietary allowance of 1200 mg of Calcium & 600 IU of vitamin D. Mammogram ordered and scheduled within a week. Colonoscopy scheduled for 03/26 The patient was instructed to perform monthly self-breast exams and schedule annual exam in a year. All questions answered and the patient verbalized understanding. Orders: Orders MM tomosynthesis screening BI Today Z12.31 - Encounter for screening mammogram for malignant neoplasm of breast Coding Level of Care Code Est Pt Prev Care 40-64y(57578) Diagnoses Well woman exam Z01.419
== END 2023-10-30 13:04 | disposition home or self-care (01) ==
PROVIDERS: Visit Provider Obstetrics & Gynecology
DX: Z01.419 Encounter for gynecological examination (general) (routine) without abnormal findings (principal)
CPT/HCPCS: 99396

== ENCOUNTER → 2023-10-30 11:06 | Outpatient (BNVA) | payer OTHER, SELFPAY | PROVIDERS: Visit Provider Obstetrics & Gynecology | DX: Z01.419 Encounter for gynecological examination (general) (routine) without abnormal findings (principal) | CPT/HCPCS: 99396 ==

== ENCOUNTER 2023-11-01 10:56 | Outpatient (AMB) | payer OTHER, SELFPAY ==
--- NOTE | 2023-11-01 11:02 | A.OFFVIS_ITS ---
Vital Signs 11/01/23 11:03 Height 5 ft 2 in Weight 149 lb BMI 27.2 Intake Visit Reasons: New Prob - Right shoulder pain Intake Note: Mellisa is a 57 year old Right hand dominate female who presents with Right shoulder pain and weakness. She describes her pain as sharp in nature. Most of the pain is along the lateral aspect of her right shoulder. The patient did undergo left shoulder arthroscopic surgery performed by another orthopedic surgeon in 2017. She reports minimal discomfort in her left shoulder. Her right shoulder pain has gotten worse over the last year in spite of continued non operative treatments. She has failed 6 weeks of conservative treatment. She has had injections in the past which gave her minimal relief. She has also done physical therapy exercises which aggravated her pain. She has tried Tylenol and anti-inflammatory medicines which gave her minimal relief. The patient has difficulty lifting her right hand above shoulder height. Patient reports her pain has been going on for about a month and is a 8 on the 1-10 pain scale. She states she is using tylenol and motrin for the pain with little relief. She denies injury, injections and surgery Allergies Penicillins Allergy (Mild, Verified 11/01/23 11:03) RASH/DYSPNEA metformin Adverse Reaction (Intermediate, Verified 11/01/23 11:03) stomach upset Medication List - Last Reconciled 11/01/23 by Jake Jaimes MD albuterol sulfate 90 mcg/actuation (ProAir HFA) 2 puffs inhalation Q4-6H PRN albuterol sulfate 2.5 mg (3 mL) inhalation Q4-6H PRN atorvastatin 40 mg PO BEDTIME 90 days blood sugar diagnostic (FreeStyle Lite Strips) As directed four times a day blood-glucose meter (FreeStyle Lite Meter kit) use as directed to test blood sugar 4x per day calcium carbonate 600 mg PO BID 90 days canagliflozin 100 mg PO DAILY 30 days cholecalciferol (vitamin D3) (Vitamin D3) 25 mcg PO DAILY 90 days clotrimazole-betamethasone 1-0.05 % 1 appl topical BID 5 days cyanocobalamin (vitamin B-12) 500 mcg sublingual DAILY 90 days docusate sodium 100 mg PO BEDTIME doxycycline hyclate 100 mg PO BID 5 days famotidine (Pepcid) 20 mg PO BEDTIME fluticasone propionate 50 mcg/actuation (Flonase Allergy Relief) 1 spray intranasal DAILY heating pads As directed hydrochlorothiazide 12.5 mg PO QAM incontinence pad, liner, disp Use 1 pad twice a day insulin lispro (Humalog KwikPen (U-100) Insulin) 6 - 8 units (0.06 - 0.08 mL) subcut TID lancets (FreeStyle Lancets) 4 times a day Lantus Solostar U-100 Insulin (insulin glargine) 42 units (0.42 mL) subcut DAILY 90 days NS lidocaine 5% 1 patch topical DAILY linaclotide (Linzess) 290 mcg PO QAM lorazepam 0.5 mg PO DAILY PRN lorazepam (Ativan) 1 mg PO ONCE PRN metoclopramide HCl 5 mg PO DAILY 90 days montelukast 10 mg PO DAILY nebulizer accessories NEBULIZER FACE MASK ADULT, USE DIRECTED nebulizers ([place] II Nebulizer) As directed pantoprazole 40 mg PO DAILY pioglitazone 45 mg PO DAILY 90 days polyethylene glycol 3350 (Miralax) 17 grams PO DAILY 30 days prednisone 40 mg (2 x 20 mg) PO DAILY sertraline 100 mg PO DAILY sertraline 50 mg PO DAILY Shower Chair As directed simethicone 125 mg PO BID-QID PRN tirzepatide (Mounjaro) 5 mg (0.5 mL) subcut QWEEK [toilet seat elevator As directed] Ventolin HFA 90 mcg/actuation (albuterol sulfate) 2 puffs inhalation Q6H PRN 30 days NS zolpidem 5 mg PO BEDTIME PRN PFSH Medical History Ear discomfort Palpitations Overweight Type 2 diabetes mellitus with diabetic polyneuropathy B12 deficiency DM2 (diabetes mellitus, type 2) Tubular adenoma Moderate recurrent major depression Dyslipidemia Umbilical hernia Edema Arthritis 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 Pernicious anemia Hearing loss Insomnia Depression with anxiety Moderate asthma Essential hypertension Polyarthralgia GERD (gastroesophageal reflux disease) Diabetes Hearing loss Surgical History History of cholecystectomy History of umbilical hernia repair History of foot surgery History of carpal tunnel release History of surgery on arm History of endometrial ablation History of tubal ligation Family History Mother Breast cancer Paternal Grandmother Breast cancer Brother Colon cancer Family/Other FH: mental illness Mental health disorder Father CAD (coronary artery disease) Social History (Updated 11/01/23 @ 11:13 by María Reynoso CMA) Household Members: Children Housing: Apartment Alcohol intake: never Patient Tobacco Use Status: Never used Tobacco e-Cigarette/Vaping Use: Never Used Second Hand Smoke Exposure: No service: No Current occupational status: disabled Current occupation: Right hand dominate Cognitive needs: No Hearing needs: No Vision needs: Yes Female Reproductive History Menstrual Age of Menarche: 11 Physical Exam Vital Signs: BMI result Body Mass Index 27.2 Const Other: Well-nourished well-developed very friendly female awake alert and oriented x3 in no acute distress Extrem Other: Bilateral upper extremity examination shows good capillary refill, no skin lesions noted, normal sensation light touch Right shoulder examination shows decreased range of motion when compared to her left shoulder, 4+ out of 5 strength with supraspinatus testing, positive impingement signs, tenderness over her acromioclavicular joint, no instability Quality Reporting (2019) Adult ([facility] ) Smoking risk assessment performed?: Yes Patient Tobacco Use Status: Never used Tobacco Results Reviewed Results Reviewed: X-rays of the patient's right shoulder show severe acromioclavicular joint narrowing, a type 3 acromion, no acute bony abnormalities Assessment & Plan Assessment & Plan (1) Right shoulder pain: Code(s): M25.511 - Pain in right shoulder Category: Medical Qualifiers: Chronicity: acute Qualified Code(s): M25.511 - Pain in right shoulder Plan Ms. Marva Ramos presents with progressively worsening right shoulder pain and weakness due to impingement syndrome, acromioclavicular joint and possible full- thickness rotator cuff tearing. Thus, I will send the patient for an MRI of her right shoulder for further evaluation. I will see her back once the MRI is completed to discuss the findings and treatment options. She will continue with the range of motion exercises in the meantime to prevent stiffness. Feel free to call me at any time should questions regarding her orthopedic management arise. Thank you very much for asking me to see this very friendly patient. I spent 21 minutes in reviewing the patient's records and imaging studies, seeing the patient and documenting in the medical record. Orders: Orders MR shoulder RT wo con Today M25.511 - Pain in right shoulder Medications: New lorazepam (Ativan) Take one tab 2 hours before your right shoulder MRI; take the second tab 30 minutes before your MRI. 1 mg PO ONCE PRN 2 tabs 0RF anxiety Coding Level of Care Code New Pt Level 2 (41855) Diagnoses Acute pain of right shoulder M25.511 Chronicity: acute
[2023-11-01 11:03] VITALS: BMI 27.2
== END 2023-11-01 11:26 | disposition home or self-care (01) ==
PROVIDERS: PCP Internal Medicine; Visit Provider Orthopaedic Surgery
DX: M25.511 Pain in right shoulder (principal)
CPT/HCPCS: 99202

== ENCOUNTER → 2023-11-01 10:56 | Outpatient (BNVA) | payer OTHER, SELFPAY | PROVIDERS: PCP Internal Medicine; Visit Provider Orthopaedic Surgery | DX: M25.511 Pain in right shoulder (principal) | CPT/HCPCS: 99202 ==

== ENCOUNTER 2023-11-04 08:40 | Outpatient (REF) | payer OTHER, SELFPAY ==
--- NOTE | ~2023-11-04 | MM_ITS ---
EXAMINATION: MM SCREENING DIGITAL BREAST TOMOSYNTHESIS, BILATERAL CLINICAL INFORMATION: Screening. Asymptomatic. COMPARISON: Mammography: This study is compared with prior exams dating back to 2019. TECHNIQUE: Digital breast tomosynthesis is performed in both the craniocaudal and mediolateral oblique views along with computer-aided detection (CAD). Synthesized 2D images are generated from the tomosynthesis. FINDINGS: There are scattered areas of fibroglandular density (ACR BI-RADS breast composition Category b). There are no significant masses, abnormal calcifications, or other abnormalities. Few, bilateral, unchanged benign calcifications are present. MM/MM tomosynthesis screening BI IMPRESSION: No mammographic evidence of malignancy. ASSESSMENT: BI-RADS BI-RADS 2 - Benign Findings RECOMMENDATION: Routine annual mammography screening. 1 year F/U This examination should not preclude the clinical evaluation of a suspicious palpable abnormality. This patient's information was entered into a reminder system with a target due date for their next mammogram.
== END 2023-11-04 08:41 | disposition home or self-care (01) ==
LOC: HO.MAMMO 08:40
PROVIDERS: PCP Internal Medicine; Visit Provider Internal Medicine
DX: Z12.31 Encounter for screening mammogram for malignant neoplasm of breast (principal)
CPT/HCPCS: 77063; 77067

== ENCOUNTER → 2023-11-04 08:45 | Outpatient (BNV) | payer OTHER, SELFPAY | PROVIDERS: PCP Internal Medicine; Visit Provider Radiology Diagnostic Radiology | DX: Z12.31 Encounter for screening mammogram for malignant neoplasm of breast (principal) | CPT/HCPCS: 77063; 77067 ==

== ENCOUNTER 2023-11-28 13:25 | Outpatient (AMB) | payer OTHER, SELFPAY ==
--- NOTE | 2023-11-28 13:27 | MHC.OFFVIS ---
Vital Signs 11/28/23 13:31 Height 5 ft 2 in Weight 147 lb 11.355 oz BMI 27.0 BP 102/60 Intake Visit Reasons: Ultra sound follow up Tax Compliance Representative Required: Yes Tax Compliance Representative Language: Upper Leather Sorter Name: Roseann GRIFFITH Information Interpreted: non-clinical & clinical Accompanied by: Self / Same As Patient Allergies Penicillins Allergy (Mild, Verified 11/28/23 13:39) RASH/DYSPNEA metformin Adverse Reaction (Intermediate, Verified 11/28/23 13:39) stomach upset Post menopausal: Yes HPI Comments Details: Presenting for follow-up ultrasound. Urine dip, GC/CT, BV panel done last visit, were all negative Pelvic ultrasound done in 10/16/2023 showed the following: Uterus: The uterus is anteverted and measures 6.8 x 2.8 x 3.4 cm. The double wall endometrial thickness is 1.3 mm. The uterus is smooth in contour and has normal myometrial echogenicity. A single fundal fibroid is present which has decreased in size now measuring 1.2 x 1.3 x 1.2 cm (previously 2.1 x 1.8 x 2.06). Adnexa: Both ovaries are visualized. There is normal color flow to the adnexa. There is no ovarian torsion. There is no pelvic ascites or fluid collection. Right ovary measures 2.0 x 1.5 x 1.2 cm for a volume of 1.9 mL. Left ovary measures 1.5 x 1.1 x 1.0 cm for a volume of 0.8 mL. [facility] Medical History Ear discomfort Palpitations Overweight Type 2 diabetes mellitus with diabetic polyneuropathy B12 deficiency DM2 (diabetes mellitus, type 2) Tubular adenoma Moderate recurrent major depression Dyslipidemia Umbilical hernia Edema Arthritis Ear pain custodial (current) use of insulin Pernicious anemia Hearing loss Insomnia Depression with anxiety Moderate asthma Essential hypertension Polyarthralgia GERD (gastroesophageal reflux disease) Diabetes Hearing loss Surgical History History of cholecystectomy History of umbilical hernia repair History of foot surgery History of carpal tunnel release History of surgery on arm History of endometrial ablation History of tubal ligation Family History Mother Breast cancer Paternal Grandmother Breast cancer Brother Colon cancer Family/Other FH: mental illness Mental health disorder Father CAD (coronary artery disease) Social History Household Members: Children Housing: Apartment Alcohol intake: never Patient Tobacco Use Status: Never used Tobacco e-Cigarette/Vaping Use: Never Used Second Hand Smoke Exposure: No service: No Current occupational status: disabled Current occupation: Right hand dominate Cognitive needs: No Hearing needs: No Vision needs: Yes Female Reproductive History Menstrual Age of Menarche: 11 Review of Systems Const All systems reviewed & are unremarkable except as noted in HPI and below Reports as per HPI and Reports no additional complaints GI Reports no additional complaints Reports no additional complaints Physical Exam Vital Signs: BMI result Body Mass Index 27.0 Quality Reporting (2019) Adult ([facility] 138/08/24/68) Smoking risk assessment performed?: Yes Patient Tobacco Use Status: Never used Tobacco Assessment & Plan Assessment & Plan (1) Uterine myoma: Code(s): D25.9 - Leiomyoma of uterus, unspecified Category: Medical Plan: Discussed with the patient the findings on pelvic ultrasound & the risk of myosarcoma; discussed with the patient the options of treatment including expectant management versus hysterectomy; the pros and cons, risks benefits of each approach were discussed with the patient including the fact that in cases of myosarcoma, surgical treatment can lead to early diagnosis and positively affects the prognosis; after further discussion, the patient decided to proceed with expectant management. Will repeat pelvic ultrasound periodically. Instructions given to patient to call in case any of the following occurs: pressure symptoms, abnormal uterine bleeding, pelvic pain; and to schedule a future office follow-up appointment for reassessment and to order a repeat ultrasound . All questions answered, the patient verbalized understanding and agreed with the plan . Coding Level of Care Code Est Pt Level 3 (98066) Diagnoses Uterine myoma D25.9
[2023-11-28 13:31] VITALS: BP 102/60; BMI 27.0
== END 2023-11-28 14:40 | disposition home or self-care (01) ==
LOC: HO.HWS 13:25
PROVIDERS: PCP Internal Medicine; Visit Provider Obstetrics & Gynecology
DX: D25.9 Leiomyoma of uterus, unspecified (principal)
CPT/HCPCS: 99213

== ENCOUNTER → 2023-11-28 13:25 | Outpatient (BNVA) | payer OTHER, SELFPAY | PROVIDERS: PCP Internal Medicine; Visit Provider Obstetrics & Gynecology | DX: D25.9 Leiomyoma of uterus, unspecified (principal) | CPT/HCPCS: 99212 ==

== ENCOUNTER 2023-12-04 10:06 | Outpatient (AMB) | payer OTHER, SELFPAY ==
--- NOTE | 2023-12-04 09:26 | A.OFFVIS_ITS ---
Vital Signs 12/04/23 10:22 Height 5 ft 2 in Weight 153 lb 3.54 oz BMI 28.0 BP 114/62 Blood Pressure Location Rt brachial Position Sitting Pulse 74 Pulse Source Pulse Oximeter Pulse Oximetry (%) 97 Oxygen Delivery Method Room Air Intake Visit Reasons: Atelectasis Tank Car Repairer Required: Yes Tank Car Repairer Language: Slasher Tender Name: [id number] Alejandro Allergies Penicillins Allergy (Mild, Verified 12/04/23 10:28) RASH/DYSPNEA metformin Adverse Reaction (Intermediate, Verified 12/04/23 10:28) stomach upset HPI HPI Atelectasis: Details: Mellisa is a pleasant 58 year old female, never smoker, with underlying asthma, GERD, DMII, and HTN. She was referred by PCP after abnormal CXR revealing right basilar atelectasis on 10/17/23. Of note, at this time patient was treated with doxycyline and prednisone for cough and dyspnea. Since being treated, she reports significant improvement in symptoms. She continues to report chest tightness, dyspnea with moderate exertion and wheezing at baseline. She denies any cough. She reports symptoms have been more pronounced since having COVID in June. She has been using albuterol frequently with minimal relief. She reports asthma since childhood, never requiring intubations. She reports seasonal allergies, no recent allergy testing. She does have two parakeets which she has had for the past year. She denies any pertinent family history. She denies any occupational exposures. [facility] Medical History Ear discomfort Palpitations Overweight Type 2 diabetes mellitus with diabetic polyneuropathy B12 deficiency DM2 (diabetes mellitus, type 2) Tubular adenoma Moderate recurrent major depression Dyslipidemia Umbilical hernia Edema Arthritis Ear pain half-way (current) use of insulin Pernicious anemia Hearing loss Insomnia Depression with anxiety Moderate asthma Essential hypertension Polyarthralgia GERD (gastroesophageal reflux disease) Diabetes Hearing loss Surgical History History of cholecystectomy History of umbilical hernia repair History of foot surgery History of carpal tunnel release History of surgery on arm History of endometrial ablation History of tubal ligation Family History Mother Breast cancer Paternal Grandmother Breast cancer Brother Colon cancer Family/Other FH: mental illness Mental health disorder Father CAD (coronary artery disease) Social History Household Members: Children Housing: Apartment Alcohol intake: never Patient Tobacco Use Status: Never used Tobacco e-Cigarette/Vaping Use: Never Used Second Hand Smoke Exposure: No service: No Current occupational status: disabled Current occupation: Right hand dominate Cognitive needs: No Hearing needs: No Vision needs: Yes Female Reproductive History Menstrual Age of Menarche: 11 Review of Systems Const Denies chills, Denies excessive sweating, Denies fever(s), Denies headache(s) and Denies night sweats Eyes Denies dry eyes, Denies irritation and Denies itchy eyes ENT Reports Normal hearing present, Denies headache(s), Denies nasal congestion, Denies nasal discharge, Denies post nasal drip and Denies sore throat Card Denies chest pain, Denies chest pain at rest, Denies chest pain with activity, Denies claudication, Denies leg edema, Denies orthopnea and Denies paroxysmal nocturnal dyspnea Resp Denies chest congestion, Denies cough, Denies excessive phlegm production, Denies pain on inspiration, Denies pain with cough and Denies stridor Musc Denies myalgias Neuro Reports Normal hearing present and Denies headache(s) Endo Denies excessive sweating Kranthi/Lymph Denies lymphadenopathy Aller/Immun Denies itchy eyes and Denies seasonal rhinorrhea Physical Exam Vital Signs: Last Vital Signs Pulse 74 12/04/23 10:22 BP 114/62 12/04/23 10:22 Pulse Ox 97 12/04/23 10:22 Oxygen Delivery Method Room Air 12/04/23 10:22 BMI result Body Mass Index 28.0 Const General: cooperative, healthy appearing, comfortable, no acute distress, well developed and alert Orientation/consciousness: patient oriented x3 Limitations: no limitations HEENT Head: Yes normal to inspection, Yes normocephalic and Yes atraumatic Ears: hearing grossly normal bilaterally and external ears normal Eyes General: appearance normal, both eyes and all related structures Eyelids: Yes eyelids normal Sclerae: sclerae normal EOM: EOMs intact bilaterally Neck Neck: Yes normal visual inspection and Yes no lymphadenopathy Lymphatic: no lymphadenopathy noted Chest Chest palpation & inspection: normal inspection of the chest Resp Effort & Inspection: normal respiratory effort, able to speak in complete sentences, no audible wheezes, no cough, no stridor, not tachypneic, no tripod positioning and no use of accessory muscles Auscultation: clear to auscultation bilaterally Cardio Jugular venous distension: no JVD Rate: regular rate Rhythm: regular rhythm Skin Other: warm, dry General skin exam: no rashes or lesions noted Neuro General: patient oriented x3 Cranial nerves: Yes Normal hearing present Cognition (Neuro): normal cognition Gait exam (Neuro): Normal gait present Extrem General: Yes normal to inspection, Yes capillary refill normal, Yes no clubbing, cyanosis or edema and Yes no pedal edema Psych Appearance: grossly normal and well kempt Speech and movement: Normal speech and movement present and Clear speech present Affect: normal affect Attitude: cooperative Thought process: Normal thought process present Thought content: Normal thought content present Insight: Good insight present (Psych) Judgement: Good judgement present (Psych) Quality Reporting (2019) Adult ([facility] 138/08/24/68) Smoking risk assessment performed?: Yes Patient Tobacco Use Status: Never used Tobacco Results Reviewed Results Reviewed: [address] [address] XRay Report Signed Patient: Mellisa Akbar MR#: [id number] : 1965 Acct:[id number] Age/Sex: 57 / F ADM Date: 10/20/23 Loc: [facility] Attending Dr: Norma Bland MD Ordering Physician: Caleb Carlin PA-C Date of Service: 10/20/23 Procedure(s): XR chest 2V Accession Number(s): [id number] cc: Caleb Carlin PA-C; Norma Lopes MD~ EXAMINATION: XR CHEST CLINICAL INFORMATION: Post Covid COMPARISON: Chest radiograph from 10/17/2023 TECHNIQUE: 2 views of the chest were obtained. FINDINGS: Slight right basilar atelectasis. No pneumothorax. Trachea is midline. Cardiac mediastinal silhouette is not enlarged. No large pleural effusion. Degenerative changes of the thoracolumbar spine. Soft tissues are unremarkable. XR/XR chest 2V IMPRESSION: Slight right basilar atelectasis. Dictated By: Kamila Singh MD Signed By: <Electronically signed by Kamila Singh MD in OV> 10/25/23 1156 DD/ 1004 TD/TT: Quality Control Assistant: Assessment & Plan Assessment & Plan (1) Asthma: Code(s): J45.909 - Unspecified asthma, uncomplicated Category: Medical Qualifiers: Asthma complication type: with acute exacerbation Asthma persistence: unspecified Asthma severity: moderate Qualified Code(s): J45.901 - Unspecified asthma with (acute) exacerbation (2) Environmental and seasonal allergies: Code(s): J30.89 - Other allergic rhinitis Category: Medical Plan Mellisa presents for evaluation after recent CXR revealed RLL atelectasis. At the time of the CXR patient with bronchitic symptoms and has been treated with resolution of symptoms. Will send for repeat CXR to assess. She reports poor control of asthma, using albuterol frequently, will trial QVAR. Will also send for RAST and PFT. All questions were answered and patient is in agreement of pl an. Will follow up in 8-10 weeks or sooner if needed. Orders: Orders Immunoglobulin E Today J89 - Other allergic rhinitis Complete Blood Count Auto Diff Today J3089 - Other allergic rhinitis XR chest 2V Today J98.11 - Atelectasis Resp Allergy Profile Region I Today J.89 - Other allergic rhinitis PFT pulmonary function test Today J45.901 - Unspecified asthma with (acute) exacerbation Other Ref Test [place] [facility] [place] - Other allergic rhinitis Medications: New beclomethasone dipropionate 40 mcg/actuation (Qvar RediHaler) 2 inhalations inhalation BID 10.6 grams 6RF Coding Level of Care Code New Pt Level 4 (49697) Diagnoses Moderate asthma with acute exacerbation, unspecified whether persistent J45.901 Asthma complication type: with acute exacerbation Asthma persistence: unspecified Asthma severity: moderate Environmental and seasonal allergies J30.89
[2023-12-04 10:22] VITALS: BP 114/62; PULSE 74; O2SAT 97; BMI 28.0
== END 2023-12-04 10:59 | disposition home or self-care (01) ==
PROVIDERS: PCP Internal Medicine; Referring Provider Physician Assistant; Visit Provider Nurse Practitioner Family
DX: J45.901 Unspecified asthma with (acute) exacerbation (principal); J30.89 Other allergic rhinitis
CPT/HCPCS: 99204

== ENCOUNTER → 2023-12-04 10:06 | Outpatient (BNVA) | payer OTHER, SELFPAY | PROVIDERS: PCP Internal Medicine; Referring Provider Physician Assistant; Visit Provider Nurse Practitioner Family | DX: J45.901 Unspecified asthma with (acute) exacerbation (principal); J30.89 Other allergic rhinitis | CPT/HCPCS: 99202 ==

== ENCOUNTER 2023-12-05 13:55 | Outpatient (REF) | payer OTHER, SELFPAY ==
--- NOTE | ~2023-12-05 | XR_ITS ---
EXAMINATION: XR CHEST CLINICAL INFORMATION: Atelectasis, patient states pain on right side of chest. COMPARISON: October 20, 2023, 10/17/2023. TECHNIQUE: 2 views of the chest were obtained. FINDINGS: There is no gross pneumothorax. Heart size is normal. No pleural effusion. Degenerative changes in the thoracic spine. No new focal consolidation to suggest pneumonia. XR/XR chest 2V IMPRESSION: No evidence of pneumonia.
[2023-12-05 14:21] LABS: MANUAL DIFF FLAG NO
[2023-12-05 14:48] LABS: Basophils Percent Auto 0.5 % (0-2); Eosinophils Absolute Auto 0.1 X10*3/uL (0.0-0.4); Eosinophils Percent Auto 0.7 % (0-4); Hematocrit 45.9 % (37.0-47.0); Hemoglobin 14.9 g/dl (12.0-16.0); Imm Gran Abs Auto 0.03 X10*3/uL (0.00-0.03); Imm Gran Pct Auto 0.4 % (0.0-0.4); Lymphocytes Absolute Auto 2.2 X10*3/uL (1.2-4.9); Lymphocytes Percent Auto 26.7 % (20-40); Mean Corpuscular HGB Conc 32.5 g/dl (31.0-35.0); Mean Corpuscular Hemoglobin 28.6 pg (27.0-33.0); Mean Corpuscular Volume 88.1 fL (80.0-98.0); Mean Platelet Volume 12.2 fL (9.4-12.3); Monocytes Absolute Auto 0.5 X10*3/uL (0.1-1.2); Neutrophils Absolute Auto 5.4 x10*3/uL (2.0-8.3); Neutrophils Percent Auto 65.7 % (45-73); Platelet Count 147 X10*3/uL (160-400); Red Blood Count 5.21 X10*6/uL (4.20-5.50); White Blood Count 8.1 X10*3/uL (4.8-10.8)
[2023-12-06 22:14] LABS: Class Alternaria alternata 0; Class Aspergillus fumigatus 0; Class Bermuda Grass 0; Class Birch 0; Class Cat Dander 0; Class Cladosporium herbarum 0; Class Cockroach 0; Class Common Ragweed 0; Class Cottonwood 0; Class Derm. pterony 0; Class Dermatophagoides farinae 0; Class Dog Dander 0; Class Elm 0; Class Maple Box Elder 0; Class Mountain Cedar 0; Class Mouse Urine Protein 0; Class Mugwort 0; Class Oak 0; Class Penicillium crysogenum 0; Class Rough Pigweed 0; Class Sheep Sorrel 0; Class Sycamore 0; Class Timothy Grass 0; Class Walnut Tree 0; Class White Ash 0; Class White Mulberry 0; D001 IgE D pteronyssinus <0.10 kU/L; D002 - IgE D farinae <0.10 kU/L; E001 - IgE Cat Dander <0.10 kU/L; E005 - IgE Dog Dander <0.10 kU/L; E072-IgE Mouse Urine <0.10 kU/L; G002 IgE Bermuda Grass <0.10 kU/L; G006 - IgE Timothy Grass <0.10 kU/L; I006-IgE Cockroach, German <0.10 kU/L; Immunoglobulin E 45 kU/L (<OR=114); M001 IgE Penicillium chrysogen <0.10 kU/L; M002 - IgE Cladosporium herbar <0.10 kU/L; M003 - IgE Aspergillus fumigat <0.10 kU/L; M006 - IgE Alternaria alternat <0.10 kU/L; T001 IgE Maple/Box Elder <0.10 kU/L; T003 IgE Common Silver Birch <0.10 kU/L; T006 - IgE Cedar, Mountain <0.10 kU/L; T007 - IgE Oak, White <0.10 kU/L; T008 IgE Elm, American <0.10 kU/L; T010 - IgE Walnut <0.10 kU/L; T011 - IgE Maple Leaf Sycamore <0.10 kU/L; T014 - IgE Cottonwood <0.10 kU/L; T015 - IgE Ash, White <0.10 kU/L; T070 - IgE White Mulberry <0.10 kU/L; W001 - IgE Ragweed, Short <0.10 kU/L; W006 - IgE Mugwort <0.10 kU/L; W014 IgE Pigweed, Common <0.10 kU/L; W018 IgE Sheep Sorrel <0.10 kU/L
== END 2023-12-05 13:56 | disposition home or self-care (01) ==
LOC: HO.XRAY 13:55
PROVIDERS: PCP Internal Medicine; Visit Provider Nurse Practitioner Family
DX: J98.11 Atelectasis (principal); J30.89 Other allergic rhinitis
CPT/HCPCS: 36415; 71046; 82785; 85025; 86003

== ENCOUNTER → 2023-12-12 10:05 | Outpatient (AMB) | payer OTHER, SELFPAY ==
--- NOTE | 2023-12-12 10:11 | MHC.OFFVIS ---
Intake Visit Reasons: Unspecified urinary incontinence Intake Note: New Patient presents today for initial visit to establish treatment for : incontinence Urology Medications: none Allergies to Antibiotic: PCN Blood Thinner: none PVR: 27ml's Postal Transportation Clerk Required: Yes Postal Transportation Clerk Name: MOISÉS PEREZGEOVANNA Accompanied by: Self / Same As Patient Allergies Penicillins Allergy (Mild, Verified 12/12/23 10:49) RASH/DYSPNEA metformin Adverse Reaction (Intermediate, Verified 12/12/23 10:49) stomach upset Medication List - Last Reconciled 12/12/23 by JARAD Messina- albuterol sulfate 90 mcg/actuation (ProAir HFA) 2 puffs inhalation Q4-6H PRN albuterol sulfate 2.5 mg (3 mL) inhalation Q4-6H PRN atorvastatin 40 mg PO BEDTIME 90 days blood sugar diagnostic (FreeStyle Lite Strips) As directed four times a day blood-glucose meter (FreeStyle Lite Meter kit) use as directed to test blood sugar 4x per day calcium carbonate 600 mg PO BID 90 days canagliflozin 100 mg PO DAILY 30 days cholecalciferol (vitamin D3) (Vitamin D3) 25 mcg PO DAILY 90 days clotrimazole-betamethasone 1-0.05 % 1 appl topical BID 5 days cyanocobalamin (vitamin B-12) 500 mcg sublingual DAILY 90 days docusate sodium 100 mg PO BEDTIME famotidine (Pepcid) 20 mg PO BEDTIME fluticasone propion-salmeterol 115-21 mcg/actuation (Advair HFA) 2 puffs inhalation Q12H fluticasone propionate 50 mcg/actuation (Flonase Allergy Relief) 1 spray intranasal DAILY heating pads As directed hydrochlorothiazide 12.5 mg PO QAM incontinence pad, liner, disp Use 1 pad twice a day insulin lispro (Humalog KwikPen (U-100) Insulin) 6 - 8 units (0.06 - 0.08 mL) subcut TID lancets (FreeStyle Lancets) 4 times a day Lantus Solostar U-100 Insulin (insulin glargine) 42 units (0.42 mL) subcut DAILY 90 days NS lidocaine 5% 1 patch topical DAILY linaclotide (Linzess) 290 mcg PO QAM lorazepam 0.5 mg PO DAILY PRN lorazepam (Ativan) 1 mg PO ONCE PRN metoclopramide HCl 5 mg PO DAILY 90 days montelukast 10 mg PO DAILY nebulizer accessories NEBULIZER FACE MASK ADULT, USE DIRECTED nebulizers (AeroEclipse II Nebulizer) As directed pantoprazole 40 mg PO DAILY pioglitazone 45 mg PO DAILY 90 days polyethylene glycol 3350 (Miralax) 17 grams PO DAILY 30 days sertraline 100 mg PO DAILY sertraline 50 mg PO DAILY Shower Chair As directed simethicone 125 mg PO BID-QID PRN tirzepatide (Mounjaro) 5 mg (0.5 mL) subcut QWEEK [toilet seat elevator As directed] Ventolin HFA 90 mcg/actuation (albuterol sulfate) 2 puffs inhalation Q6H PRN 30 days NS zolpidem 5 mg PO BEDTIME PRN HPI Comments Details: Mellisa is a pleasant 58-year-old Guamanian-speaking female patient of Dr. Dorman. She has a past medical history of palpitations, type 2 diabetes, polyneuropathy, vitamin-B 12 deficiency, depression, dyslipidemia, umbilical hernia, arthritis, hearing loss, insomnia, anxiety, asthma, hypertension, polyarthralgia, and GERD. She presents to the office today as a new patient for stress incontinence. In discussion with the patient today she reports symptoms have been present for quite some time. She has a previous history of 6 vaginal deliveries and one . She discusses feeling worried as she has a longstanding history of diabetes over the last 25 years and is worried this is affecting her kidneys. She discusses having 2 siblings on dialysis. She reports noting at times having episodes of urinary urgency and frequency however relates this to when her sugars are elevated. Discussed at length potential causes for lower urinary tract symptoms patient is experiencing. In office urinalysis results reviewed with the patient today. 3+ glucosuria. Discussed further workup to include retroperitoneal ultrasound for further assessment evaluation. PVR 27 mL. Discussed further treatment options for stress incontinence. Discussed pelvic floor therapy. She denies hematuria, dysuria, foul smelling urine, changes to urinary stream, flank pain, fever, and or chills. She otherwise offers no other issues or concerns at this time. 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 Pernicious anemia Hearing loss Insomnia Depression with anxiety Moderate asthma Essential hypertension Polyarthralgia GERD (gastroesophageal reflux disease) Diabetes Hearing loss Surgical History History of cholecystectomy History of umbilical hernia repair History of foot surgery History of carpal tunnel release History of surgery on arm History of endometrial ablation History of tubal ligation Family History Mother Breast cancer Paternal Grandmother Breast cancer Brother Colon cancer Family/Other FH: mental illness Mental health disorder Father CAD (coronary artery disease) Social History Household Members: Children Housing: Apartment Alcohol intake: never Patient Tobacco Use Status: Never used Tobacco e-Cigarette/Vaping Use: Never Used Second Hand Smoke Exposure: No service: No Current occupational status: disabled Current occupation: Right hand dominate Cognitive needs: No Hearing needs: No Vision needs: Yes Female Reproductive History Menstrual Age of Menarche: 11 Review of Systems Const Reports no additional complaints Eyes Reports no additional complaints ENT Reports no additional complaints Card Reports as per HPI Resp Reports as per HPI GI Reports as per HPI Reports as per HPI Musc Reports as per HPI Neuro Reports as per HPI Psych Reports as per HPI Endo Reports as per HPI Kranthi/Lymph Reports as per HPI Aller/Immun Reports as per HPI Physical Exam Const General: cooperative, healthy appearing, comfortable, no acute distress, well developed, alert and awake Orientation/consciousness: patient oriented x3 Limitations: no limitations HEENT Head: Yes normal to inspection, Yes normocephalic and Yes atraumatic Ears: hearing grossly normal bilaterally Eyes General: appearance normal, both eyes and all related structures Neck Neck: Yes normal visual inspection and Yes trachea midline Chest Chest palpation & inspection: normal inspection of the chest Resp Effort & Inspection: normal respiratory effort and able to speak in complete sentences Cardio Rate: regular rate GI Inspection: Yes normal to inspection General: Yes no CVA tenderness Back/Spine/Pelvis Back: no CVA tenderness Skin General skin exam: no rashes or lesions noted Neuro General: patient oriented x3 Extrem General: Yes normal to inspection Psych Appearance: grossly normal and well kempt Mental Status: mental status grossly normal Speech and movement: Normal speech and movement present and Clear speech present Affect: normal affect Attitude: cooperative Thought process: Normal thought process present Thought content: Normal thought content present Insight: Fair insight present (Psych) Judgement: Fair judgement present (Psych) Office Procedures Post Void Residual Post Residual Void Post Void Residual (PVR): 27 [id number] Void Residual by ultrasound Results AMB Urinalysis, Automated UA Leukoctes 0 Sharla/uL Last Edit by [employer] on 12/12/23 10:25 UA Nitrite Negative Last Edit by [employer] on 12/12/23 10:25 UA Urobilinogen 0.2 mg/dL Last Edit by [employer] on 12/12/23 10:25 UA Protein 15 mg/dL Last Edit by [employer] on 12/12/23 10:25 UA pH 6.0 Last Edit by [employer] on 12/12/23 10:25 UA Blood 0 Heladio/uL Last Edit by [employer] on 12/12/23 10:25 UA Specific [place] 1.015 Last Edit by [employer] on 12/12/23 10:25 UA Ketone Negative Last Edit by [employer] on 12/12/23 10:25 UA Bilirubin 0 mg/dL Last Edit by [employer] on 12/12/23 10:25 UA Glucose 1000 mg/dL Last Edit by [employer] on 12/12/23 10:25 Quality Reporting (2019) Adult ([facility] 138/08/24/68) Smoking risk assessment performed?: Yes Patient Tobacco Use Status: Never used Tobacco Results Reviewed Results Reviewed: Laboratory Last Values Urine pH (Auto) 6.0 12/12/23 10:18 Specific [place] (Auto) 1.015 12/12/23 10:18 Urine Protein (Auto) 15 mg/dL 12/12/23 10:18 Glucose (UA)(Auto) 1000 mg/dL 12/12/23 10:18 Urine Ketones (Auto) Negative 12/12/23 10:18 Urine Blood (Auto) 0 Heladio/uL 12/12/23 10:18 Urine Nitrite (Auto) Negative 12/12/23 10:18 Urine Bilirubin (Auto) 0 mg/dL 12/12/23 10:18 Urine Urobilinogen (Auto) 0.2 mg/dL 12/12/23 10:18 Leukocyte Esterase (Auto) 0 Sharla/uL 12/12/23 10:18 Assessment & Plan Assessment & Plan (1) Stress incontinence: Code(s): N39.3 - Stress incontinence (female) (male) Category: Medical (2) Proteinuria: Code(s): R80.9 - Proteinuria, unspecified Category: Medical (3) Urinary frequency: Code(s): R35.0 - Frequency of micturition Category: Medical Plan In office urinalysis results reviewed with the patient today; as noted above. PVR 27 mL. Discussed at length potential causes for lower urinary tract symptoms patient is experiencing. Will refer to Nephrology as patient would like to establish care. Will obtain retroperitoneal ultrasound for further assessment evaluation. Information provided regarding pelvic floor therapy/exercises. Discussed, educated, and stressed the importance of managing diabetes for improvement lower urinary tract symptoms as well as overall health and well-being. Start VESIcare as discussed and prescribed. Discussed potential near future in office cystoscopy and or urodynamics for further assessment evaluation. Follow-up in 1-3 months with imaging to be completed prior and PVR at next office visit; or sooner with any issues, concerns, and or questions. Orders: Orders AMB Post Void Residual by ultrasound Today R32 - Unspecified urinary incontinence AMB Urinalysis Automated Today Z13.9 - Encounter for screening, unspecified US retroperitoneal comp Today N39.3 - Stress incontinence (female) (male) Referrals Nephrology Referral R80.9 - Proteinuria, unspecified Medications: New solifenacin (Vesicare) 5 mg PO DAILY 30 days 30 tabs 3RF Patient Instructions: The patient had an opportunity to ask questions regarding the treatment plan. All questions were answered. Physical exam, labs, and imaging were discussed and reviewed in detail. As well as risks, benefits, and discussion of treatment choices. No major barriers to understanding were identified. The patient expressed understanding and agreement with the above treatment plan. The patient was made aware they should contact our office by phone for worsening of their current condition, the appearance of new symptoms, or with any questions or concerns. Compliance is encouraged with any medications and follow up testing that is ordered. It is a privilege to be allowed the opportunity to participate in? your urological care.? Again, if you have any questions or concerns If you have any questions or concerns please do not hesitate to contact me. The office is [phone]. This note is constructed using voice recognition software. While every effort has been made to ensure accuracy data warehousing architect errors may have been included. Yours sincerely, SHAINA Messina Coding Level of Care Code New Pt Level 4 (45557) Diagnoses Stress incontinence N39.3 Proteinuria R80.9 Urinary frequency R35.0 CPT Codes Post Residual Void - PVR CPT Code: 23624-[id number] Void Residual by ultrasound ([id number])
== END ==
PROVIDERS: PCP Student in an Organized Health Care Education/Training Program; Visit Provider Nurse Practitioner Family
DX: N39.3 Stress incontinence (female) (male) (principal); R80.9 Proteinuria, unspecified; R35.0 Frequency of micturition; Z13.9 Encounter for screening, unspecified
CPT/HCPCS: 99204

== ENCOUNTER → 2023-12-12 10:05 | Outpatient (BNVA) | payer OTHER, SELFPAY | PROVIDERS: PCP Student in an Organized Health Care Education/Training Program; Visit Provider Nurse Practitioner Family | DX: N39.3 Stress incontinence (female) (male) (principal); R35.0 Frequency of micturition; R80.9 Proteinuria, unspecified | CPT/HCPCS: 51798; 81003; 99202 ==

== ENCOUNTER 2023-12-14 10:26 | Outpatient (REF) | payer OTHER, SELFPAY ==
[2023-12-14 12:47] LABS: Appearance Urine Clear; Color Urine Yellow; Glucose Urine UA >=1000 mg/dL (Negative); Leukocyte Esterase Urine Negative (Negative); Nitrite Urine Negative (Negative); Specific Gravity - Urine >= 1.030 (1.005-1.025); UMIC TRIGGER UA YES; Urine Blood Negative (Negative); Urine Ketones Negative (Negative); Urine Protein Negative (Neg-Trace)
[2023-12-14 12:52] LABS: Bacteria Urine None Seen (None Seen); Hyaline Casts Urine 0-2 /LPF (0-2); RBC Urine 0-2 /HPF (0-2); Squamous Epithelial Cell Urine 0-2 /HPF (0-2); WBC Urine 0-5 /HPF (0-5)
[2023-12-14 13:11] LABS: Anion Gap 12 (12-20); Blood Urea Nitrogen 15 mg/dL (9-16); Calcium 9.9 mg/dL (8.4-10.2); Carbon Dioxide 32 mmol/L (22-29); Chloride 100 mmol/L (96-108); Estimated Glomerular Filt Rate > 60; Glucose Random 184 mg/dL (60-115); Potassium 3.6 mmol/L (3.3-5.1); Sodium 140 mmol/L (135-145)
[2023-12-14 13:16] LABS: Total Protein Urine Random < 7 mg/dL (<12)
== END 2023-12-14 10:27 | disposition home or self-care (01) ==
LOC: HO.LAB 10:26
PROVIDERS: Absent Provider Internal Medicine Hypertension Specialist; PCP Internal Medicine; Visit Provider Internal Medicine Endocrinology, Diabetes & Metabolism
DX: E11.42 Type 2 diabetes mellitus with diabetic polyneuropathy (principal); E11.65 Type 2 diabetes mellitus with hyperglycemia; R80.9 Proteinuria, unspecified; Z79.4 Long term (current) use of insulin
CPT/HCPCS: 36415; 80048; 81001; 82570; 82947; 83036; 84156; 84300; 99202; 99212

== ENCOUNTER 2023-12-14 10:26 | Outpatient (AMB) | payer OTHER, SELFPAY ==
[2023-12-14 10:27] VITALS: BP 104/62; PULSE 72; BMI 27.6
--- NOTE | 2023-12-14 10:27 | A.OFFVIS_ITS ---
Vital Signs 12/14/23 10:27 Height 5 ft 2 in Weight 150 lb 12.739 oz BMI 27.6 BP 104/62 Blood Pressure Location Lt brachial Position Sitting Pulse 72 Pulse Source Pulse Oximeter Intake Visit Reasons: f/u Type 2 DM/lvm Intake Note: Patient presents today to follow up on D2MT. Last Diabetic Eye exam: 10/2023 Last Podiatry Visit:Doesn't have one Random Glucose: 188 mg/dl HgA1c: 8.3% Warehouse Supervisor 3Rd Shift Required: Yes Warehouse Supervisor 3Rd Shift Language: Supervisor Welding Equipment Repairer Name: Misty Information Interpreted: non-clinical & clinical Accompanied by: Self / Same As Patient Allergies Penicillins Allergy (Mild, Verified 12/14/23 10:32) RASH/DYSPNEA metformin Adverse Reaction (Intermediate, Verified 12/14/23 10:32) stomach upset HPI Comments Details: Patient is a 58 year old female with DM type 2 diagnosed around 2004 who presents for management of diabetes. Past medical history: Diabetes type 2, hypertension, hyperlipidemia, obesity, gastric ulcer and diverticulosis Micro and macrovascular complications: +neuropathy Diabetes medications: Lantus 40 units, Humalog 4 units small meals 6 units regular meal, pioglitazone 30 mg, Invokana 100mg. Mounjaro 5 mg Qwkly Qwkly stopped because of GI pain not taking Intolerant of Trulicity due to abdominal pain. Blood glucose monitoring: [employer] download shows a sensors active 2% of the time. Average glucose is 161 there are only 2 blood sugars scanned into Sandra Hypoglycemia: infrequently Hyperglycemia: + urinary frequency, + nocturia, + polydypsia Exercise: housecleaning Hl7 Developer - CDE education: currently Conference Interpreter: 2 years ago : Ophthalmology evaluation: 10/2023 -cataract surgery in 01/2024 Laboratory Tests 11/13/20 01/22/21 01/22/21 07:50 08:30 08:30 Creatinine 0.75 Estimated GFR > 60 Hgb A1c (Clinic) Triglycerides 134 Cholesterol 147 D LDL Cholesterol, Calc 89 HDL Cholesterol 32 Vitamin B12 1009 H 25-OH Vitamin D Total TSH 1.85 Microalb/Creat Ratio 01/22/21 01/22/21 03/22/21 08:30 Unknown 09:42 Creatinine Estimated GFR Hgb A1c (Clinic) 7.9 H Triglycerides Cholesterol LDL Cholesterol, Calc HDL Cholesterol Vitamin B12 25-OH Vitamin D Total 35 TSH Microalb/Creat Ratio 5.9 PFSH Medical History Ear discomfort Palpitations Overweight Type 2 diabetes mellitus with diabetic polyneuropathy B12 deficiency DM2 (diabetes mellitus, type 2) Tubular adenoma Moderate recurrent major depression Dyslipidemia Umbilical hernia Edema Arthritis 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 Pernicious anemia Hearing loss Insomnia Depression with anxiety Moderate asthma Essential hypertension Polyarthralgia GERD (gastroesophageal reflux disease) Diabetes Hearing loss Surgical History History of cholecystectomy History of umbilical hernia repair History of foot surgery History of carpal tunnel release History of surgery on arm History of endometrial ablation History of tubal ligation Family History Mother Breast cancer Paternal Grandmother Breast cancer Brother Colon cancer Family/Other FH: mental illness Mental health disorder Father CAD (coronary artery disease) Social History Household Members: Children Housing: Apartment Alcohol intake: never Patient Tobacco Use Status: Never used Tobacco e-Cigarette/Vaping Use: Never Used Second Hand Smoke Exposure: No service: No Current occupational status: disabled Current occupation: Right hand dominate Cognitive needs: No Hearing needs: No Vision needs: Yes Female Reproductive History Menstrual Age of Menarche: 11 Physical Exam Vital Signs: Last Vital Signs Pulse 72 12/14/23 10:27 BP 104/62 12/14/23 10:27 BMI result Body Mass Index 27.6 Absence of Cushingoid features. Absence of acromegalic features. Neck exam reveals nl size thyroid about 15 gms. No thyroid nodules palpable. No carotid bruits present. Lungs CTA. Heart S1 S2, Reg R/R. No M/R/ G. Skin exam reveals absence of vitiligo or acanthosis nigricans. Abdominal exam reveals Soft NT/ND with NA BS. No organomegaly present. Neck Other: . Extrem Other: Visual exam of foot performed. No ulcerations or open lesions. No onchomycosis, no callouses.Pulses 2 + distally Sensation intact to monofilament exam. Vibratory sensation sensed is decreased with 128 Hz tuning fork Results AMB Hemoglobin A1c AMB Hemoglobin A1c 8.3 % Last Edit by NACHO Cruz on 12/14/23 10:48 Quality Reporting (2020) Adult ([facility] 138/2/) Smoking risk assessment performed?: Yes Patient Tobacco Use Status: Never used Tobacco Results Reviewed Results Reviewed: Laboratory Last Values Hgb A1c (Clinic) 8.3 % (4.0-6.0) H 12/14/23 10:38 Assessment & Plan Assessment & Plan (1) DM2 (diabetes mellitus, type 2): Code(s): E11.9 - Type 2 diabetes mellitus without complications Category: Medical Qualifiers: Diabetes mellitus complication status: with hyperglycemia Diabetes mellitus terminal gauger insulin use: without terminal gauger use Qualified Code(s): E11.65 - Type 2 diabetes mellitus with hyperglycemia Plan: This is a 56-year-old female with a history of type 2 diabetes being treated with Actos, Invokana, and basal-bolus insulin with poor glycemic control and known microvascular complications namely neuropathy Plan is to have the patient scan more frequently with the Sandra. Can not make any changes to the regimen because of lack of data today. Will have patient follow up with art educator once more data is obtained from Sandra Orders: Orders AMB Hemoglobin A1c Today E11.42 - Type 2 diabetes mellitus with diabetic polyneuropathy, Z13.9 - Encounter for screening, unspecified Coding Level of Care Code Est Pt Level 4 (94038) Diagnoses Type 2 diabetes mellitus with hyperglycemia, without long-term current use of insulin E11.65 Diabetes mellitus complication status: with hyperglycemia Diabetes mellitus chcf insulin use: without chcf use
[2023-12-14 11:42] LABS: Glucose, Whole Blood 188 mg/dL (60-115)
== END 2023-12-14 10:51 | disposition home or self-care (01) ==
PROVIDERS: PCP Internal Medicine; Visit Provider Internal Medicine Endocrinology, Diabetes & Metabolism
DX: Z13.9 Encounter for screening, unspecified (principal); E11.42 Type 2 diabetes mellitus with diabetic polyneuropathy; E11.65 Type 2 diabetes mellitus with hyperglycemia
CPT/HCPCS: 99214

== ENCOUNTER 2023-12-14 11:01 | Outpatient (AMB) | payer OTHER, SELFPAY ==
[2023-12-14 11:03] VITALS: BP 106/62; PULSE 81; O2SAT 99; BMI 27.4
--- NOTE | 2023-12-14 11:03 | HO.NEPHOV_ITS ---
Vital Signs 12/14/23 11:03 Height 5 ft 2 in Weight 150 lb BMI 27.4 BP 106/62 Blood Pressure Location Rt brachial Position Sitting Pulse 81 Pulse Source Pulse Oximeter Pulse Oximetry (%) 99 Oxygen Delivery Method Room Air Intake Visit Reasons: Proteinuria/ Conf Forming Acid Dumper Required: Yes Forming Acid Dumper Name: Wes [id number] Accompanied by: Self / Same As Patient Allergies Penicillins Allergy (Mild, Verified 12/14/23 11:05) RASH/DYSPNEA metformin Adverse Reaction (Intermediate, Verified 12/14/23 11:05) stomach upset HPI Comments Details: 58-year-old man with a history of longstanding diabetes mellitus for almost 23 years has been referred for evaluation of renal function. She has been noting some foaming during urination. There is a question of proteinuria. Serum creatinine has been stable and less than 1.0. She tells me his blood sugar has been suboptimally controlled recent A1c was 8.3%. Currently she is being treated by endocrinology. She has been taking hydrochlorothiazide 12.5 mg. This was given because of generalized edema. She admits to eating excessive salty food. 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 Pernicious anemia Hearing loss Insomnia Depression with anxiety Moderate asthma Essential hypertension Polyarthralgia GERD (gastroesophageal reflux disease) Diabetes Hearing loss Surgical History History of cholecystectomy History of umbilical hernia repair History of foot surgery History of carpal tunnel release History of surgery on arm History of endometrial ablation History of tubal ligation Family History Mother Breast cancer Paternal Grandmother Breast cancer Brother Colon cancer Family/Other FH: mental illness Mental health disorder Father CAD (coronary artery disease) Social History Household Members: Children Housing: Apartment Alcohol intake: never Patient Tobacco Use Status: Never used Tobacco e-Cigarette/Vaping Use: Never Used Second Hand Smoke Exposure: No service: No Current occupational status: disabled Current occupation: Right hand dominate Cognitive needs: No Hearing needs: No Vision needs: Yes Female Reproductive History Menstrual Age of Menarche: 11 Review of Systems Const Denies fever(s) and Denies weight loss Card Denies chest pain Resp Denies cough and Denies hemoptysis GI Denies abdominal pain, Denies diarrhea and Denies nausea Musc Denies back pain Neuro Denies focal weakness Physical Exam Vital Signs: Last Vital Signs Pulse 81 12/14/23 11:03 BP 106/62 12/14/23 11:03 Pulse Ox 99 12/14/23 11:03 Oxygen Delivery Method Room Air 12/14/23 11:03 BMI result Body Mass Index 27.4 Const General: comfortable Nutritional Appearance: well nourished Orientation/consciousness: patient oriented x3 HEENT Head: No normal to inspection Mouth: moist mucous membranes Neck Neck: Yes supple and Yes no JVD Resp Auscultation: clear to auscultation bilaterally, no rales and rub present Cardio Jugular venous distension: no JVD Palpation: no palpable S3 and no palpable S4 Heart sounds: no rubs GI Palpation (GI): Soft to palpation and nontender Percussion: No Fluid wave present General: Yes no CVA tenderness Back/Spine/Pelvis Back: no CVA tenderness Skin General skin exam: no rashes or lesions noted Neuro General: patient oriented x3 Extrem General: Yes no pedal edema and No clubbing Results AMB Hemoglobin A1c AMB Hemoglobin A1c 8.3 % Last Edit by NACHO Cruz on 12/14/23 10:48 Results Reviewed Nephrology Results: Hgb 14.9 g/dl (12.0-16.0) 12/05/23 WBC 8.1 X10*3/uL (4.8-10.8) 12/05/23 Plt Count 147 X10*3/uL (160-400) L 12/05/23 Sodium 140 mmol/L (135-145) 12/14/23 Potassium 3.6 mmol/L (3.3-5.1) 12/14/23 Chloride 100 mmol/L (96-108) 12/14/23 Carbon Dioxide 32 mmol/L (22-29) H 12/14/23 BUN 15 mg/dL (9-16) 12/14/23 Creatinine 0.81 mg/dL (0.5-1.4) 12/14/23 Calcium 9.9 mg/dL (8.4-10.2) 12/14/23 Urine Protein Negative mg/dL (Neg-Trace) 12/14/23 Urine Creatinine 31.60 mg/dL 12/14/23 Assessment & Plan Assessment & Plan (1) Type 2 diabetes mellitus with diabetic polyneuropathy: Code(s): E11.42 - Type 2 diabetes mellitus with diabetic polyneuropathy Category: Medical Plan . Middle-aged woman with longstanding history of diabetes mellitus. At present renal function stable with a creatinine of 0.0 mg/dL. In the past she did not have any significant proteinuria. I will recheck urine for protein creatinine ratio since she has been seeing some foaming during urination. The blood pressure rather low. This could be due to the use of hydrochlorothiazide. At present she has no significant edema. I will discontinue the hydrochlorothiazide. Encouraged her to stand on a low-sodium diet. Concur with other management and agree with using SGLT2 inhibitors. Orders: Orders Total Protein Urine Random Today E11.42 - Type 2 diabetes mellitus with diabetic polyneuropathy Basic Metabolic Panel Today E11.42 - Type 2 diabetes mellitus with diabetic polyneuropathy Sodium Urine Random Today E11.42 - Type 2 diabetes mellitus with diabetic polyneuropathy UA and rflx microscopic Today E11.42 - Type 2 diabetes mellitus with diabetic polyneuropathy Creatinine Urine Today E11.42 - Type 2 diabetes mellitus with diabetic polyneuropathy Coding Level of Care Code New Pt Level 4 (85940) Diagnoses Type 2 diabetes mellitus with diabetic polyneuropathy E11.42
== END 2023-12-14 11:28 | disposition home or self-care (01) ==
PROVIDERS: PCP Internal Medicine; Referring Provider Nurse Practitioner Family; Visit Provider Internal Medicine Hypertension Specialist
DX: E11.42 Type 2 diabetes mellitus with diabetic polyneuropathy (principal)
CPT/HCPCS: 99204

== ENCOUNTER 2023-12-18 14:53 | Outpatient (AMB) | payer OTHER, SELFPAY ==
--- NOTE | 2023-12-18 15:22 | MHC.OFFWIV ---
Intake Vital Signs 12/18/23 15:23 Height 5 ft 2 in Weight 150 lb BMI 27.4 BP 108/70 Blood Pressure Location Rt brachial Position Sitting Pulse 70 Pulse Source Pulse Oximeter Temp 98.2 F Temp Source Oral Pulse Oximetry (%) 98 Intake Visit Reasons: EP UTI/Diabetic Intake Note: pt is here for c/o UTI Patient Tobacco Use Status: Never used Tobacco Allergies Penicillins Allergy (Mild, Verified 12/18/23 15:23) RASH/DYSPNEA metformin Adverse Reaction (Intermediate, Verified 12/18/23 15:23) stomach upset Do you need a note to return to daycare/school/sports/work: No HPI HPI Comments History of Present Illness Details Patient presents to the walk-in today for sick visit Complaining of vaginal irritation Reports external burning with urination for last 1 month Had a urine last week at urologist office, was told positive for glucose negative for UTI Denies hematuria, frequency, urgency, abdominal pain or back pain Denies fevers, chills, dizziness, weakness, headaches, nausea, vomiting, diarrhea, incontinence Patient is known diabetic, states her blood sugars have been in the 150s. Reports they are well controlled and managed by endocrinology [facility] Medical History Ear discomfort Palpitations Overweight Type 2 diabetes mellitus with diabetic polyneuropathy B12 deficiency DM2 (diabetes mellitus, type 2) Tubular adenoma Moderate recurrent major depression Dyslipidemia Umbilical hernia Edema Arthritis Ear pain assisted (current) use of insulin Pernicious anemia Hearing loss Insomnia Depression with anxiety Moderate asthma Essential hypertension Polyarthralgia GERD (gastroesophageal reflux disease) Diabetes Hearing loss Surgical History History of cholecystectomy History of umbilical hernia repair History of foot surgery History of carpal tunnel release History of surgery on arm History of endometrial ablation History of tubal ligation Family History Mother Breast cancer Paternal Grandmother Breast cancer Brother Colon cancer Family/Other FH: mental illness Mental health disorder Father CAD (coronary artery disease) Social History Household Members: Children Housing: Apartment Alcohol intake: never Patient Tobacco Use Status: Never used Tobacco e-Cigarette/Vaping Use: Never Used Second Hand Smoke Exposure: No service: No Current occupational status: disabled Current occupation: Right hand dominate Cognitive needs: No Hearing needs: No Vision needs: Yes Female Reproductive History Menstrual Age of Menarche: 11 Review of Systems Const All systems reviewed & are unremarkable except as noted in HPI and below Physical Exam Vital Signs: Last Vital Signs Temp 98.2 F 12/18/23 15:23 Pulse 70 12/18/23 15:23 BP 108/70 12/18/23 15:23 Pulse Ox 98 12/18/23 15:23 BMI result Body Mass Index 27.4 General: awake, alert, oriented. Answers questions appropriately. Fully engaged in examination. Skin: warm, dry, intact HEENT: Normocephalic. Hearing intact. Cardiac: External chest normal in appearance. Respiratory: No cough, audible wheezing or stridor. Abdomen: without gross distension. soft, nontender. no guarding. no CVA tenderness MS: No obvious swelling or deformities. Neurological: Oriented to person, place, time and situation. Thought process intact. No gait abnormalities appreciated. Psychiatric: Appropriate mood and affect. Good judgment and insight. Results AMB Urinalysis, Automated UA Leukoctes 0 Sharla/uL Last Edit by Darius Ruth CMA on 12/18/23 15:41 UA Nitrite Negative Last Edit by Darius Ruth CMA on 12/18/23 15:41 UA Urobilinogen 0.2 mg/dL Last Edit by Darius Ruth CMA on 12/18/23 15:41 UA Protein 0 mg/dL Last Edit by Darius Ruth CMA on 12/18/23 15:41 UA pH 6.0 Last Edit by Darius Ruth CMA on 12/18/23 15:41 UA Blood 0 Heladio/uL Last Edit by Darius Ruth CMA on 12/18/23 15:41 UA Specific Canvas 1.025 Last Edit by Darius Ruth CMA on 12/18/23 15:41 UA Ketone Negative Last Edit by Darius Ruth CMA on 12/18/23 15:41 UA Bilirubin 0 mg/dL Last Edit by Darius Ruth CMA on 12/18/23 15:41 UA Glucose 1000 mg/dL Last Edit by Darius Ruth CMA on 12/18/23 15:41 Results Reviewed Results Reviewed: Laboratory Last Values Urine pH (Auto) 6.0 12/18/23 15:39 Specific Canvas (Auto) 1.025 12/18/23 15:39 Urine Protein (Auto) 0 mg/dL 12/18/23 15:39 Glucose (UA)(Auto) 1000 mg/dL 12/18/23 15:39 Urine Ketones (Auto) Negative 12/18/23 15:39 Urine Blood (Auto) 0 Heladio/uL 12/18/23 15:39 Urine Nitrite (Auto) Negative 12/18/23 15:39 Urine Bilirubin (Auto) 0 mg/dL 12/18/23 15:39 Urine Urobilinogen (Auto) 0.2 mg/dL 12/18/23 15:39 Leukocyte Esterase (Auto) 0 Sharla/uL 12/18/23 15:39 Assessment & Plan Assessment & Plan (1) Vaginal irritation: Code(s): N89.8 - Other specified noninflammatory disorders of vagina Plan miconazole nitrate 2%, 1 appful vaginal BEDTIME 7 days drink plenty of fluids Follow-up with nephrology/endocrinology to further discuss continued glucose in the urine Patient recommended to follow-up with PCP or urologist Orders: Orders AMB Urinalysis Automated Today Veronica Mari PA-C Z13.9 - Encounter for screening, unspecified Medications: New miconazole nitrate 2% 1 appful vaginal BEDTIME 7 days 45 grams 0RF Donna Huang, COMPLIANCE REVIEWER, STRING CUTTER Coding Level of Care Code Est Pt Level 3 (97990) Diagnoses Vaginal irritation N89.8
[2023-12-18 15:23] VITALS: BP 108/70; PULSE 70; TEMP 36.8; O2SAT 98; BMI 27.4
== END 2023-12-18 16:38 | disposition home or self-care (01) ==
PROVIDERS: PCP Internal Medicine; Visit Provider Registered Nurse Emergency
DX: N89.8 Other specified noninflammatory disorders of vagina (principal)
CPT/HCPCS: 81003; 99213

== ENCOUNTER 2023-12-19 10:12 | Outpatient (REF) | payer OTHER, SELFPAY ==
--- NOTE | ~2023-12-19 | US_ITS ---
EXAMINATION: US RETROPERITONEAL LIMITED (RENAL ONLY) CLINICAL INFORMATION: Stress incontinence (female). COMPARISON: CT abdomen and pelvis 09/05/2021. Ultrasound abdomen complete with elastography 09/24/2019. TECHNIQUE: Real-time imaging of the kidneys. FINDINGS: RIGHT KIDNEY: 11.3 x 4.1 x 5.1 cm (SAG x AP x TRV). The kidney is normal in size, contour, and echogenicity. Renal cortical thickness is normal. No calculi or focal parenchymal lesions. No hydronephrosis. LEFT KIDNEY: 11.2 x 5.0 x 4.9 cm (SAG x AP x TRV). The kidney is normal in size, contour, and echogenicity. Renal cortical thickness is normal. No calculi or focal parenchymal lesions. No hydronephrosis. US/US renal BI IMPRESSION: Normal renal ultrasound.
== END 2023-12-19 10:13 | disposition home or self-care (01) ==
LOC: HO.US 10:12
PROVIDERS: PCP Internal Medicine; Visit Provider Nurse Practitioner Family
DX: N39.3 Stress incontinence (female) (male) (principal)
CPT/HCPCS: 76775

== ENCOUNTER 2023-12-20 10:50 | Outpatient (REF) | payer OTHER, SELFPAY ==
--- NOTE | ~2023-12-20 | US_ITS ---
EXAMINATION: US PELVIS LIMITED (BLADDER) CLINICAL INFORMATION: Stress incontinence. COMPARISON: Renal ultrasound 12/19/2023. X-ray KUB 03/18/2022 [address] 08/13/2019. CT abdomen and pelvis 09/05/2021. TECHNIQUE: Real-time imaging of the bladder. FINDINGS: BLADDER: Partially distended. Bilateral ureteral jets are demonstrated. Prevoid bladder volume is 244 mL. Postvoid bladder volume is 48.3 mL. US/US bladder IMPRESSION: Postvoid bladder volume 48.3 mL.
== END 2023-12-20 10:51 | disposition home or self-care (01) ==
LOC: HO.US 10:50
PROVIDERS: PCP Internal Medicine; Visit Provider Nurse Practitioner Family
DX: N39.3 Stress incontinence (female) (male) (principal)
CPT/HCPCS: 76857

== ENCOUNTER 2024-01-01 09:38 | Outpatient (AMB) | payer OTHER, SELFPAY ==
--- NOTE | 2024-01-01 10:31 | A.OFFVIS_ITS ---
Intake Intake Visit Reasons: T2DM/CONFIRMED Merchandising Intern Required: Yes Merchandising Intern Language: Maori Accompanied by: Self / Same As Patient Allergies Penicillins Allergy (Mild, Verified 12/18/23 15:23) RASH/DYSPNEA metformin Adverse Reaction (Intermediate, Verified 12/18/23 15:23) stomach upset HPI Comprehensive Diabetes Asmnt Most Recent Diabetes Results: 2 Microalb/Creat Ratio 5.7 ug/mg cr (<30) 10/20/23 Cholesterol 117 mg/dL (<200) 10/06/23 HDL Cholesterol 33 mg/dL (>40) L 10/06/23 Triglycerides 92 mg/dL (<150) 10/06/23 Creatinine 0.81 mg/dL (0.5-1.4) 12/14/23 Blood Urea Nitrogen 15 mg/dL (9-16) 12/14/23 Sodium 140 mmol/L (135-145) 12/14/23 Potassium 3.6 mmol/L (3.3-5.1) 12/14/23 Chloride 100 mmol/L (96-108) 12/14/23 Carbon Dioxide 32 mmol/L (22-29) H 12/14/23 Calcium 9.9 mg/dL (8.4-10.2) 12/14/23 AST 21 U/L (5-31) 10/06/23 ALT 28 U/L (0-31) 10/06/23 Total Protein 6.9 g/dL (6.5-8.0) 10/06/23 Albumin 3.8 g/dL (3.5-5.0) 10/06/23 [facility] Medical History Ear discomfort Palpitations Overweight Type 2 diabetes mellitus with diabetic polyneuropathy B12 deficiency DM2 (diabetes mellitus, type 2) Tubular adenoma Moderate recurrent major depression Dyslipidemia Umbilical hernia Edema Arthritis Ear pain [facility] (current) use of insulin Pernicious anemia Hearing loss Insomnia Depression with anxiety Moderate asthma Essential hypertension Polyarthralgia GERD (gastroesophageal reflux disease) Diabetes Hearing loss Surgical History History of cholecystectomy History of umbilical hernia repair History of foot surgery History of carpal tunnel release History of surgery on arm History of endometrial ablation History of tubal ligation Family History Mother Breast cancer Paternal Grandmother Breast cancer Brother Colon cancer Family/Other FH: mental illness Mental health disorder Father CAD (coronary artery disease) Social History Household Members: Children Housing: Apartment Alcohol intake: never Patient Tobacco Use Status: Never used Tobacco e-Cigarette/Vaping Use: Never Used Second Hand Smoke Exposure: No service: No Current occupational status: disabled Current occupation: Right hand dominate Cognitive needs: No Hearing needs: No Vision needs: Yes Female Reproductive History Menstrual Age of Menarche: 11 Assessment & Plan Assessment & Plan (1) Type 2 diabetes mellitus with diabetic polyneuropathy: Code(s): E11.42 - Type 2 diabetes mellitus with diabetic polyneuropathy Plan: Learning objectives: The patient was provided with verbal and written education on the following topics as outlined below. The patient met all learning objectives and was able to verbalize understanding and provide teach back of education topics discussed . The patient was provided with the opportunity to ask questions and all questions were answered. Patient Assessment Assess patient education level/literacy/barriers, patient read back carbohydrate food she eats from carb list Patient questions/concerns, patient was diagnosed approximately 24 years ago after the of her last child. Last A1c on 12/14/2023 8.3% Patient currently takes Humalog 8-10 units before meals Lantus 42 units daily Pioglitazone 45 mg daily She is also prescribed Invokana, but mentioned that she has been out for approximately 2 weeks Message sent to Dr. Mortensen to refill Invokana prescription 100 mg, patient agreed to restart Invokana when she picks it up. Patient did state that she has some burning on urination with Invokana, went to PCP was negative for UTI Recommended to patient if the symptom of burning is not tolerable discussed with Dr. Mortensen alternative medication Patient reported she has previously been on Omnipod insulin pump, she is interested in resuming insulin pump therapy Patient will set up appointment for pump info What is Diabetes? Pathophysiology How the body produces and uses insulin Identify type of DM Risk factors Signs of Diabetes Brief overview of Diabetes Management Monitoring blood sugar Following a meal plan Regular exercise Maintaining a healthy weight Taking medication as needed Members of the care team (PCP, RN, MA, RD, CDE, covering and lining supervisor) Blood glucose monitoring When/how often to test Target blood sugar ranges Patient uses freestyle Sandra 2 Patient's average glucose for the past 10 days 205 mg/dL Patient above target 68% Patient at target 32% Patient below target 0% Introduction to Nutrition Importance of healthy diet in managing DM Diet is personalized to individual preference Review patient?s regular diet/food preferences Who prepares meals/does food shopping/ Dining out?/ Barriers? How diet effects glucose Eating 3 balanced meals a day with small, healthy snacks between meals Review food groups Carbohydrates: What is a carbohydrate/Which food/food groups are considered carbohydrates Effect of carbohydrates on blood glucose Portion sizes Reading food labels Basic carb counting (if applicable per nursing assessment) Plate method Meal planning Recommendations: Follow plate method, consistent carbs and read nutritional labels. Smart Goal: Resume practicing Carb counting skills Educational Materials: The patient was provided with the following written educational materials: Planning Healthy Meals Handout Patient Response to instructions: Comprehension of Instructions: Fair Readiness to make changes: Contemplation How confident they feel about making changes: Positive Portions of this note were created using voice recognition software, please excuse any words or phrases that may have been misinterpreted. Patient Instructions: Aumentar Humalog de 10 unidades a 12 unidades antes de las comidas. seguimiento en 1 semana con enfermera de educaci?n sobre diabetes Coding Level of Care Code Est Pt Level 1 (44055) Diagnoses Type 2 diabetes mellitus with diabetic polyneuropathy E11.42
== END 2024-01-01 10:38 | disposition home or self-care (01) ==
PROVIDERS: PCP Internal Medicine; Visit Provider Registered Nurse Diabetes Educator
DX: E11.42 Type 2 diabetes mellitus with diabetic polyneuropathy (principal)

== ENCOUNTER → 2024-01-01 09:38 | Outpatient (BNVA) | payer OTHER, SELFPAY | PROVIDERS: PCP Internal Medicine; Visit Provider Registered Nurse Diabetes Educator | DX: E11.42 Type 2 diabetes mellitus with diabetic polyneuropathy (principal) | CPT/HCPCS: 99211 ==

== ENCOUNTER 2024-01-05 09:28 | Outpatient (AMB) | payer OTHER, SELFPAY ==
--- NOTE | 2024-01-05 09:30 | HO.NEPHOV_ITS ---
Vital Signs 01/05/24 09:31 Height 5 ft 2 in Weight 157 lb 4 oz BMI 28.8 BP 122/60 Blood Pressure Location Lt brachial Position Sitting Pulse 81 Pulse Source Pulse Oximeter Pulse Oximetry (%) 97 Oxygen Delivery Method Room Air Intake Visit Reasons: Proteinuria/ LVM Flight Tower Dispatcher Required: Yes Flight Tower Dispatcher Services: Flight Tower Dispatcher Present Flight Tower Dispatcher Name: Idris [id number] Accompanied by: Self / Same As Patient Allergies Penicillins Allergy (Mild, Verified 01/05/24 09:34) RASH/DYSPNEA metformin Adverse Reaction (Intermediate, Verified 01/05/24 09:34) stomach upset Medication List - Last Reconciled 01/05/24 by Kris Rausch MD albuterol sulfate 90 mcg/actuation (ProAir HFA) 2 puffs inhalation Q4-6H PRN albuterol sulfate 2.5 mg (3 mL) inhalation Q4-6H PRN atorvastatin 40 mg PO BEDTIME 90 days blood sugar diagnostic (FreeStyle Lite Strips) As directed four times a day blood-glucose meter (FreeStyle Lite Meter kit) use as directed to test blood sugar 4x per day canagliflozin 100 mg PO DAILY 30 days cholecalciferol (vitamin D3) (Vitamin D3) 25 mcg PO DAILY 90 days clotrimazole-betamethasone 1-0.05 % 1 appl topical BID 5 days cyanocobalamin (vitamin B-12) 500 mcg sublingual DAILY 90 days docusate sodium 100 mg PO BEDTIME famotidine (Pepcid) 20 mg PO BEDTIME fluticasone propion-salmeterol 115-21 mcg/actuation (Advair HFA) 2 puffs inhalation Q12H fluticasone propionate 50 mcg/actuation (Flonase Allergy Relief) 1 spray intranasal DAILY heating pads As directed incontinence pad, liner, disp Use 1 pad twice a day insulin lispro (Humalog KwikPen (U-100) Insulin) 6 - 8 units (0.06 - 0.08 mL) subcut TID lancets (FreeStyle Lancets) 4 times a day Lantus Solostar U-100 Insulin (insulin glargine) 42 units (0.42 mL) subcut DAILY 90 days NS lidocaine 5% 1 patch topical DAILY linaclotide (Linzess) 290 mcg PO QAM lorazepam 0.5 mg PO DAILY PRN lorazepam (Ativan) 1 mg PO ONCE PRN metoclopramide HCl 5 mg PO DAILY 90 days miconazole nitrate 2% 1 appful vaginal BEDTIME 7 days montelukast 10 mg PO DAILY nebulizer accessories NEBULIZER FACE MASK ADULT, USE DIRECTED nebulizers ([employer] II Nebulizer) As directed pantoprazole 40 mg PO DAILY pioglitazone 45 mg PO DAILY 90 days polyethylene glycol 3350 (Miralax) 17 grams PO DAILY 30 days sertraline 50 mg PO DAILY PRN sertraline 100 mg PO DAILY PRN Shower Chair As directed simethicone 125 mg PO BID-QID PRN solifenacin (Vesicare) 5 mg PO DAILY 30 days [toilet seat elevator As directed] Ventolin HFA 90 mcg/actuation (albuterol sulfate) 2 puffs inhalation Q6H PRN 30 days NS zolpidem 5 mg PO BEDTIME PRN HPI Comments Details: 58-year-old man with a history of longstanding diabetes mellitus for almost 23 years has been referred for evaluation of renal function. She has been noting some foaming during urination. There is a question of proteinuria. Serum creatinine has been stable and less than 1.0. She tells me his blood sugar has been suboptimally controlled recent A1c was 8.3%. Currently she is being treated by endocrinology. She has been taking hydrochlorothiazide 12.5 mg. This was given because of generalized edema. She admits to eating excessive salty food. 01/05/2024. Overall doing well. Recently had vaginal fungal infection. She was treated with miconazole. She is on SGLT2 inhibitors. [facility] Medical History Ear discomfort Palpitations Overweight Type 2 diabetes mellitus with diabetic polyneuropathy B12 deficiency DM2 (diabetes mellitus, type 2) Tubular adenoma Moderate recurrent major depression Dyslipidemia Umbilical hernia Edema Arthritis Ear pain [facility] (current) use of insulin Pernicious anemia Hearing loss Insomnia Depression with anxiety Moderate asthma Essential hypertension Polyarthralgia GERD (gastroesophageal reflux disease) Diabetes Hearing loss Surgical History History of cholecystectomy History of umbilical hernia repair History of foot surgery History of carpal tunnel release History of surgery on arm History of endometrial ablation History of tubal ligation Family History Mother Breast cancer Paternal Grandmother Breast cancer Brother Colon cancer Family/Other FH: mental illness Mental health disorder Father CAD (coronary artery disease) Social History Household Members: Children Housing: Apartment Alcohol intake: never Patient Tobacco Use Status: Never used Tobacco e-Cigarette/Vaping Use: Never Used Second Hand Smoke Exposure: No service: No Current occupational status: disabled Current occupation: Right hand dominate Cognitive needs: No Hearing needs: No Vision needs: Yes Female Reproductive History Menstrual Age of Menarche: 11 Physical Exam Vital Signs: Last Vital Signs Pulse 81 01/05/24 09:31 BP 122/60 01/05/24 09:31 Pulse Ox 97 01/05/24 09:31 Oxygen Delivery Method Room Air 01/05/24 09:31 BMI result Body Mass Index 28.8 Const General: comfortable; No acute distress Orientation/consciousness: patient oriented x3 Eyes General: appearance normal, both eyes and all related structures Visual Hines: normal visual hines by confrontation Neck Neck: Yes supple and Yes no JVD Resp Effort & Inspection: normal respiratory effort and respiratory effort not decreased Auscultation: rhonchi Cardio Palpation: no palpable S3 and no palpable S4 Heart sounds: no rubs GI Inspection: Yes normal to inspection Palpation (GI): Soft to palpation Percussion: Yes normal to percussion Auscultation: normal bowel sounds General: Yes no CVA tenderness Back/Spine/Pelvis Back: no CVA tenderness Skin General skin exam: no petechiae and no purpura Neuro General: patient oriented x3 and no focal motor deficits Extrem General: No clubbing and No edema Results Reviewed Nephrology Results: Hgb 14.9 g/dl (12.0-16.0) 12/05/23 WBC 8.1 X10*3/uL (4.8-10.8) 12/05/23 Plt Count 147 X10*3/uL (160-400) L 12/05/23 Sodium 140 mmol/L (135-145) 12/14/23 Potassium 3.6 mmol/L (3.3-5.1) 12/14/23 Chloride 100 mmol/L (96-108) 12/14/23 Carbon Dioxide 32 mmol/L (22-29) H 12/14/23 BUN 15 mg/dL (9-16) 12/14/23 Creatinine 0.81 mg/dL (0.5-1.4) 12/14/23 Calcium 9.9 mg/dL (8.4-10.2) 12/14/23 Urine Protein Negative mg/dL (Neg-Trace) 12/14/23 Urine Creatinine 31.60 mg/dL 12/14/23 Renal US 12/19/23 Assessment & Plan Assessment & Plan (1) Type 2 diabetes mellitus with diabetic polyneuropathy: Code(s): E11.42 - Type 2 diabetes mellitus with diabetic polyneuropathy Category: Medical (2) Proteinuria: Code(s): R80.9 - Proteinuria, unspecified Category: Medical Plan . Middle-aged woman with longstanding history of diabetes mellitus. At present renal function stable with a creatinine of 0.9 mg/dL. In the past she did not have any significant proteinuria. No significant proteinuria based on urine protein creatinine ratio. The blood pressure well controlled. She would hypotension while she was on hydrochlorothiazide. After discontinuing hydrochlorothiazide blood pressure seems optimal Encouraged her to stand on a low-sodium diet. Needs to increase p.o. fluid intake. Concur with other management and agree with using SGLT2 inhibitors. The glycosuria is due to the use of SGLT2 inhibitors and no further intervention is needed. Orders: Orders Basic Metabolic Panel Today R80.9 - Proteinuria, unspecified UA and rflx microscopic Today R80.9 - Proteinuria, unspecified Creatinine Urine Today R80.9 - Proteinuria, unspecified Total Protein Urine Random Today R80.9 - Proteinuria, unspecified Coding Level of Care Code Est Pt Level 4 (13428) Diagnoses Type 2 diabetes mellitus with diabetic polyneuropathy E11.42 Proteinuria R80.9
[2024-01-05 09:31] VITALS: BP 122/60; PULSE 81; O2SAT 97; BMI 28.8
== END 2024-01-05 09:44 | disposition home or self-care (01) ==
PROVIDERS: PCP Internal Medicine; Visit Provider Internal Medicine Hypertension Specialist
DX: E11.42 Type 2 diabetes mellitus with diabetic polyneuropathy (principal); R80.9 Proteinuria, unspecified
CPT/HCPCS: 99214

== ENCOUNTER → 2024-01-05 09:28 | Outpatient (BNVA) | payer OTHER, SELFPAY | PROVIDERS: PCP Internal Medicine; Visit Provider Internal Medicine Hypertension Specialist | DX: E11.42 Type 2 diabetes mellitus with diabetic polyneuropathy (principal); R80.9 Proteinuria, unspecified | CPT/HCPCS: 99212 ==

== ENCOUNTER 2024-01-09 12:33 | Outpatient (AMB) | payer OTHER, SELFPAY ==
[2024-01-09 12:36] VITALS: BP 100/60; PULSE 70; O2SAT 97; BMI 27.9
--- NOTE | 2024-01-09 12:36 | A.OFFPC_ITS ---
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: No Accompanied by: Self / Same As Patient Allergies Penicillins Allergy (Mild, Verified 01/09/24 12:51) RASH/DYSPNEA metformin Adverse Reaction (Intermediate, Verified 01/09/24 12:51) stomach upset Medication List - Last Reconciled 01/09/24 by Norma Bland MD albuterol sulfate 90 mcg/actuation (ProAir HFA) 2 puffs inhalation Q4-6H PRN albuterol sulfate 2.5 mg (3 mL) inhalation Q4-6H PRN atorvastatin 40 mg PO BEDTIME 90 days blood sugar diagnostic (FreeStyle Lite Strips) As directed four times a day blood-glucose meter (FreeStyle Lite Meter kit) use as directed to test blood sugar 4x per day canagliflozin 100 mg PO DAILY 30 days cholecalciferol (vitamin D3) (Vitamin D3) 25 mcg PO DAILY 90 days clotrimazole-betamethasone 1-0.05 % 1 appl topical BID 5 days cyanocobalamin (vitamin B-12) 500 mcg sublingual DAILY 90 days docusate sodium 100 mg PO BEDTIME famotidine (Pepcid) 20 mg PO BEDTIME fluticasone propion-salmeterol 115-21 mcg/actuation (Advair HFA) 2 puffs inhalation Q12H fluticasone propionate 50 mcg/actuation (Flonase Allergy Relief) 1 spray intranasal DAILY heating pads As directed incontinence pad, liner, disp Use 1 pad twice a day insulin lispro (Humalog KwikPen (U-100) Insulin) 6 - 8 units (0.06 - 0.08 mL) subcut TID lancets (FreeStyle Lancets) 4 times a day Lantus Solostar U-100 Insulin (insulin glargine) 42 units (0.42 mL) subcut DAILY 90 days NS lidocaine 5% 1 patch topical DAILY linaclotide (Linzess) 290 mcg PO QAM lorazepam 0.5 mg PO DAILY PRN lorazepam (Ativan) 1 mg PO ONCE PRN metoclopramide HCl 5 mg PO DAILY 90 days miconazole nitrate 2% 1 appful vaginal BEDTIME 7 days montelukast 10 mg PO DAILY nebulizer accessories NEBULIZER FACE MASK ADULT, USE DIRECTED nebulizers (AeroEclipse II Nebulizer) As directed pantoprazole 40 mg PO DAILY pioglitazone 45 mg PO DAILY 90 days polyethylene glycol 3350 (Miralax) 17 grams PO DAILY 30 days sertraline 50 mg PO DAILY PRN sertraline 100 mg PO DAILY PRN Shower Chair As directed simethicone 125 mg PO BID-QID PRN solifenacin (Vesicare) 5 mg PO DAILY 30 days [toilet seat elevator As directed] Ventolin HFA 90 mcg/actuation (albuterol sulfate) 2 puffs inhalation Q6H PRN 30 days NS zolpidem 5 mg PO BEDTIME PRN Tobacco use date assessed: 10/23/23 Dental Screening Dental Screen Date: 10/23/23 HPI HPI Comments History of Present Illness Details This is a 58-year-old female with hypertension, diabetes mellitus type 2 with low term current use of insulin, GERD and hyperlipidemia that comes today for preop evaluation of cataract extraction and intraocular lens implant scheduled for January 14. Blood pressure stable. A1c elevated and she follows with endocrinology. Insulin pump will be placed tomorrow. GERD stable with PPIs. On statins for hyperlipidemia and her LDL goal should be less than 70. She denies any chest pain or shortness on breath. Has 5-7 Mets of ADLs. EKG and labs were discussed and showed no contraindication for surgery. This is a low risk surgery for a medium risk patient. By RCRI she is class 2 with 0.9% risk of cardiac complications. Patient is medically clear for surgery [facility] Medical History (Updated 01/09/24 @ 13:59 by Norma Bland MD) Ear discomfort Palpitations Overweight Type 2 diabetes mellitus with diabetic polyneuropathy B12 deficiency DM2 (diabetes mellitus, type 2) Tubular adenoma Moderate recurrent major depression Dyslipidemia Umbilical hernia Edema Arthritis Ear pain assisted (current) use of insulin Pernicious anemia Hearing loss Insomnia Depression with anxiety Moderate asthma Essential hypertension Polyarthralgia GERD (gastroesophageal reflux disease) Diabetes Hearing loss Surgical History History of cholecystectomy History of umbilical hernia repair History of foot surgery History of carpal tunnel release History of surgery on arm History of endometrial ablation History of tubal ligation Family History Mother Breast cancer Paternal Grandmother Breast cancer Brother Colon cancer Family/Other FH: mental illness Mental health disorder Father CAD (coronary artery disease) Social History Household Members: Children Housing: Apartment Alcohol intake: never Patient Tobacco Use Status: Never used Tobacco e-Cigarette/Vaping Use: Never Used Second Hand Smoke Exposure: No service: No Current occupational status: disabled Current occupation: Right hand dominate Cognitive needs: No Hearing needs: No Vision needs: Yes Female Reproductive History Menstrual Age of Menarche: 11 Questionnaire Thrive Questionnaire Date Thrive assessed: 10/23/23 LIANA-7 AMB Questionnaire LIANA-7 Date LIANA - 7 assessed: 10/23/23 Source: Developed by Drs. Hernanedz Love, Rebecca Peacock, Kalyan Becker and colleagues, with an educational julio from [employer]. Review of Systems Const All systems reviewed & are unremarkable except as noted in HPI and below Card Denies chest pain at rest, Denies chest pain with activity, Denies edema, Denies irregular heart rhythm, Denies claudication, Denies dyspnea, Denies dyspnea on exertion, Denies orthopnea, Denies paroxysmal nocturnal dyspnea and Denies slow heart rate Resp Denies cough, Denies dyspnea and Denies dyspnea on exertion Musc Denies atrophy, Denies deformity and Denies limited range of motion Physical exam (Primary Care) Vital Signs: Last Vital Signs Pulse 70 01/09/24 12:36 BP 100/60 01/09/24 12:36 Pulse Ox 97 01/09/24 12:36 Oxygen Delivery Method Room Air 01/09/24 12:36 BMI result Body Mass Index 27.9 Tobacco/Smoking Status: Tobacco use Status Tobacco use date assessed 10/23/23 01/09/24 12:37 Patient Tobacco Use Status Never used Tobacco 01/09/24 12:37 e-Cigarette/Vaping Use Never Used 01/09/24 12:37 Thrive Assessment: Date of Thrive Assessment Date Thrive assessed 10/23/23 01/09/24 12:37 Resp Effort & Inspection: normal respiratory effort Auscultation: clear to auscultation bilaterally Cardio Jugular venous distension: no JVD Rate: regular rate Rhythm: regular rhythm Heart sounds: S1 normal heart sound present and S2 normal heart sound present Extrem General: Yes full ROM Assessment and Plan Assessment & Plan (1) Pre-op evaluation: Code(s): Z01.818 - Encounter for other preprocedural examination Plan: Patient is medically clear for surgery. 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 Follow-up with endocrinology. A1c goal is equal or less than 7%. (3) GERD (gastroesophageal reflux disease): Code(s): K21.9 - Gastro-esophageal reflux disease without esophagitis Qualifiers: Esophagitis presence: without esophagitis Qualified Code(s): K21.9 - Gastro-esophageal reflux disease without esophagitis Plan: Continue PPIs (4) Essential hypertension: Code(s): I10 - Essential (primary) hypertension Plan: Discontinue hydrochlorothiazide. Keep blood pressure less than 130/80. (5) Hyperlipidemia LDL goal <70: Code(s): E78.5 - Hyperlipidemia, unspecified Plan: Continue statins. Medications: New silver sulfadiazine 1% (Silvadene) apply a 1.5 mm thickness 1 appl topical DAILY 2 weeks 25 grams 0RF Refilled atorvastatin 40 mg PO BEDTIME 90 days 90 tabs 0RF Coding Level of Care Code Est Pt Level 4 (62736) Complex EM visit Add On G2211 Diagnoses Pre-op evaluation Z01.818 Type 2 diabetes mellitus with hyperglycemia, without long-term current use of insulin E11.65 Diabetes mellitus intermediate school teacher insulin use: without usp use Diabetes mellitus complication status: with hyperglycemia Gastroesophageal reflux disease without esophagitis K21.9 Esophagitis presence: without esophagitis Essential hypertension I10 Hyperlipidemia LDL goal <70 E78.5 Time Spent (min) 23
== END 2024-01-09 13:01 | disposition home or self-care (01) ==
PROVIDERS: PCP Internal Medicine; Visit Provider Internal Medicine
DX: E11.65 Type 2 diabetes mellitus with hyperglycemia (principal); Z01.818 Encounter for other preprocedural examination; K21.9 Gastro-esophageal reflux disease without esophagitis; I10 Essential (primary) hypertension; E78.5 Hyperlipidemia, unspecified
CPT/HCPCS: 99214; G2211

== ENCOUNTER 2024-01-10 06:57 | Outpatient (AMB) | payer OTHER, SELFPAY ==
--- NOTE | 2024-01-10 07:01 | MHC.AMDMED ---
Intake Intake Visit Reasons: 60 min, Pump info/CONFIRMED Rescue Boat Operator Required: Yes Rescue Boat Operator Language: Possum Trapper Services: Rescue Boat Operator Offered & Declined Rescue Boat Operator Name: Oren [id number] Information Interpreted: non-clinical & clinical Accompanied by: Self / Same As Patient Allergies Penicillins Allergy (Mild, Verified 01/09/24 12:51) RASH/DYSPNEA metformin Adverse Reaction (Intermediate, Verified 01/09/24 12:51) stomach upset HPI Comprehensive Diabetes Asmnt Most Recent Diabetes Results: Microalb/Creat Ratio 5.7 ug/mg cr (<30) 10/20/23 Cholesterol 117 mg/dL (<200) 10/06/23 HDL Cholesterol 33 mg/dL (>40) L 10/06/23 Triglycerides 92 mg/dL (<150) 10/06/23 Creatinine 0.81 mg/dL (0.5-1.4) 12/14/23 Blood Urea Nitrogen 15 mg/dL (9-16) 12/14/23 Sodium 140 mmol/L (135-145) 12/14/23 Potassium 3.6 mmol/L (3.3-5.1) 12/14/23 Chloride 100 mmol/L (96-108) 12/14/23 Carbon Dioxide 32 mmol/L (22-29) H 12/14/23 Calcium 9.9 mg/dL (8.4-10.2) 12/14/23 AST 21 U/L (5-31) 10/06/23 ALT 28 U/L (0-31) 10/06/23 Total Protein 6.9 g/dL (6.5-8.0) 10/06/23 Albumin 3.8 g/dL (3.5-5.0) 10/06/23 [facility] Medical History Ear discomfort Palpitations Overweight Type 2 diabetes mellitus with diabetic polyneuropathy B12 deficiency DM2 (diabetes mellitus, type 2) Tubular adenoma Moderate recurrent major depression Dyslipidemia Umbilical hernia Edema Arthritis 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 Pernicious anemia Hearing loss Insomnia Depression with anxiety Moderate asthma Essential hypertension Polyarthralgia GERD (gastroesophageal reflux disease) Diabetes Hearing loss Surgical History History of cholecystectomy History of umbilical hernia repair History of foot surgery History of carpal tunnel release History of surgery on arm History of endometrial ablation History of tubal ligation Family History Mother Breast cancer Paternal Grandmother Breast cancer Brother Colon cancer Family/Other FH: mental illness Mental health disorder Father CAD (coronary artery disease) Social History Household Members: Children Housing: Apartment Alcohol intake: never Patient Tobacco Use Status: Never used Tobacco e-Cigarette/Vaping Use: Never Used Second Hand Smoke Exposure: No service: No Current occupational status: disabled Current occupation: Right hand dominate Cognitive needs: No Hearing needs: No Vision needs: Yes Female Reproductive History Menstrual Age of Menarche: 11 Assessment & Plan Assessment & Plan (1) Type 2 diabetes mellitus with diabetic polyneuropathy: Code(s): E11.42 - Type 2 diabetes mellitus with diabetic polyneuropathy Plan: Pump Assessment: Type of DM: type 2 Dx at age: 33 yo Previous DKA: No Current Insulin Rx: MDI Patient takes insulin as prescribed: yes Patient? checks BG Freestyle Sandra Downloaded meter today? No Patient? reports glycemic control as: fair Most recent Hgb A1C: 8.3 12/2023 Frequency of low BG: No Low BG treatment: apple juice Frequency of high BG: Does patient check Ketones? no, Reviewed rules about when to test for ketones Has pt been on a pump in the past? Yes, Omnipod Reviewed insulin pump basics today with Patient. Explained pros and cons of insulin pumps. Showed pt various pumps, infusion sets, and cgms currently available. Reviewed need to wear pump 24/7 and need to change infusion set every 3 days. Also stressed importance of frequent BG checks, 4x daily minimum or use pump that is integrated with CGM.? TDD:66 units Patient demonstrated motivation for continued insulin pump education and understands the need to complete education prior to starting insulin pump for best outcome. Pt is interested in iLet Pt given Rules about when to test for ketones Portions of this note were created using voice recognition software, please excuse any words or phrases that may have been misinterpreted. Coding Level of Care Code Est Pt Level 1 (98869) Diagnoses Type 2 diabetes mellitus with diabetic polyneuropathy E11.42
== END 2024-01-10 07:46 | disposition home or self-care (01) ==
PROVIDERS: PCP Internal Medicine; Visit Provider Registered Nurse Diabetes Educator
DX: E11.42 Type 2 diabetes mellitus with diabetic polyneuropathy (principal)

== ENCOUNTER → 2024-01-10 06:57 | Outpatient (BNVA) | payer OTHER, SELFPAY | PROVIDERS: PCP Internal Medicine; Visit Provider Registered Nurse Diabetes Educator | DX: E11.42 Type 2 diabetes mellitus with diabetic polyneuropathy (principal) | CPT/HCPCS: 99211 ==

== ENCOUNTER 2024-01-15 06:29 | Day surgery (SDC) | payer OTHER, SELFPAY ==
[2024-01-11 16:09] VITALS: BMI 28.7
[2024-01-15 06:52] VITALS: BP 127/74; PULSE 81; RESP 16; TEMP 36.6; O2SAT 97
[2024-01-15 07:02] LABS: Glucose, Whole Blood 216 mg/dL (60-115)
[2024-01-15] MEDS: Tetracaine HCl/PF 0.5% Oph Sol 4 ML DROPS 1 DROP EYE-LEFT (07:02)
[2024-01-15] MEDS: Cyclopentolate 1 % Ophth Sol 2 ML DRPBTL 1 DROP EYE-LEFT ×3 (07:03→07:19)
[2024-01-15] MEDS: Tropicamide 1 % Ophth Sol 3 ML BTL 1 DROP EYE-LEFT ×3 (07:05→07:21)
[2024-01-15] MEDS: Ketorolac Tromethamine 0.5% Op 10 ML DROPS 1 DROP EYE-LEFT ×3 (07:07→07:23)
[2024-01-15] MEDS: Phenylephrine HCL 2.5% Oph SoL 2 ML BOTTLE 1 DROP EYE-LEFT ×3 (07:09→07:25)
[2024-01-15] MEDS: Lactated Ringers 500 ML 50 ML IV (07:25)
--- NOTE | 2024-01-15 07:45 | P.CONAN_ITS ---
Documented by User: Paula French NP 01/11/24 14:19 HPI - Anesthesia Eval Consult details Narrative: 58yo F for Left Cataract Extraction IOL Insertion No previous cataract on record Anesthesia Pre-Procedure Meds Is the patient on any of the following meds?: SGLT2 Inhib PMFSH Active Problems Active Problems: All Active Problems Pre-op evaluation (Acute) Vaginal irritation (Acute) Proteinuria (Acute) Stress incontinence (Acute) Atelectasis, right (Acute) Environmental and seasonal allergies (Acute) Uterine myoma (Acute) Atelectasis, bilateral (Acute) Right shoulder pain (Acute) Urine incontinence (Acute) Urinary frequency (Acute) Post-COVID syndrome (Acute) Pharyngitis (Acute) ETD (eustachian tube dysfunction) (Acute) Physical exam (Acute) Asthma exacerbation (Acute) Right foot injury (Acute) Hyperlipidemia LDL goal <70 (Acute) Neck pain (Acute) Hearing loss (Acute) Right hip pain (Acute) Microscopic hematuria (Acute) Urinary tract infection (Acute) Foamy urine (Acute) Rhinitis (Acute) Family history of breast cancer in mother (Acute) Pelvic pain (Acute) Breast lump (Acute) Well woman exam (Acute) Fatigue (Acute) Ear discomfort (Acute) Palpitations (Acute) COVID-19 (Acute) Overweight (Acute) Tinea pedis (Acute) Type 2 diabetes mellitus with diabetic polyneuropathy (Acute) B12 deficiency (Acute) DM2 (diabetes mellitus, type 2) (Acute) Tubular adenoma (Acute) Left serous otitis media (Acute) Right otitis media (Acute) Otalgia, right ear (Acute) Moderate recurrent major depression (Acute) Bruised toe (Acute) Atrophic vaginitis (Acute) Candidal vulvovaginitis (Acute) Dyslipidemia (Acute) Breast calcification, left (Acute) Umbilical hernia (Acute) Edema (Acute) Arthritis (Acute) 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 pain (Acute) 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 (Acute) Pernicious anemia (Acute) Asthma (Acute) Otitis media (Acute) Hearing loss (Acute) Insomnia (Acute) Moderate asthma (Acute) Essential hypertension (Acute) Polyarthralgia (Acute) GERD (gastroesophageal reflux disease) (Acute) Type 2 diabetes mellitus with other diabetic neurological complication (Acute) Diabetes (Acute) Otitis externa (Acute) Hearing loss (Acute) Past Medical History Medical History Ear discomfort Palpitations Overweight Type 2 diabetes mellitus with diabetic polyneuropathy B12 deficiency DM2 (diabetes mellitus, type 2) Tubular adenoma Moderate recurrent major depression Dyslipidemia Umbilical hernia Edema Arthritis 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 Pernicious anemia Hearing loss Insomnia Depression with anxiety Moderate asthma Essential hypertension Polyarthralgia GERD (gastroesophageal reflux disease) Diabetes Hearing loss Family History Family History Mother Breast cancer Paternal Grandmother Breast cancer Brother Colon cancer Family/Other FH: mental illness Mental health disorder Father CAD (coronary artery disease) Family history of problems with anesthesia: No Surgical History Surgical History History of cholecystectomy History of umbilical hernia repair History of foot surgery History of carpal tunnel release History of surgery on arm History of endometrial ablation History of tubal ligation History of Problems with Anesthesia: No Social History Social History Household Members: Children Housing: Apartment Are you a primary progressive care manager to a significant other at home: No Do you presently have 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 If so, by whom?: No Are you DNR?: No Advance Directives: No Advance Directives Information Provided: Yes Advance Directives on File: No Recently lost weight without trying: No service: No Current occupational status: disabled Current occupation: Right hand dominate Cognitive needs: No Hearing needs: No Vision needs: Yes Meds Allergies Allergy/AdvReac Type Severity Reaction Status Date / Time Penicillins Allergy Mild RASH/DYSPNE Verified 01/15/24 07:16 A metformin AdvReac Intermediate stomach Verified 01/15/24 07:16 upset Home Medications ?Medication ?Instructions ?Recorded ?Confirmed ?Last Taken ?Type lorazepam 0.5 mg tablet 0.5 mg PO DAILY PRN Shortness Of 04/16/20 01/11/24 Unknown History Breath Or Wheezing zolpidem 5 mg tablet 5 mg PO BEDTIME PRN 04/16/20 01/09/24 Unknown History sertraline 100 mg tablet 100 mg PO DAILY PRN Anxiety 12/14/23 01/11/24 Unknown History sertraline 50 mg tablet 50 mg PO DAILY PRN 12/14/23 01/09/24 Unknown History Assessment and Plan Assessment Anesthesia Assessment: Chart Reviewed Final Anesthetic Review Family History of Problems with Anesthesia: No History of Problems with Anesthesia: No Documented by User: Marybeth Nails DO 01/15/24 07:50 HPI - Anesthesia Eval Anesthesia Pre-Procedure Meds Is the patient on any of the following meds?: SGLT2 Inhib PMFSH Past Medical History Medical History Ear discomfort Palpitations Overweight Type 2 diabetes mellitus with diabetic polyneuropathy B12 deficiency DM2 (diabetes mellitus, type 2) Tubular adenoma Moderate recurrent major depression Dyslipidemia Umbilical hernia Edema Arthritis Ear pain 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 Pernicious anemia Hearing loss Insomnia Depression with anxiety Moderate asthma Essential hypertension Polyarthralgia GERD (gastroesophageal reflux disease) Diabetes Hearing loss Family History Family History Mother Breast cancer Paternal Grandmother Breast cancer Brother Colon cancer Family/Other FH: mental illness Mental health disorder Father CAD (coronary artery disease) Family history of problems with anesthesia: No Surgical History Surgical History History of cholecystectomy History of umbilical hernia repair History of foot surgery History of carpal tunnel release History of surgery on arm History of endometrial ablation History of tubal ligation History of Problems with Anesthesia: No Social History Social History Household Members: Children Housing: Apartment Are you a primary progressive care manager to a significant other at home: No Do you presently have 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 If so, by whom?: No Are you DNR?: No Advance Directives: No Advance Directives Information Provided: Yes Advance Directives on File: No Recently lost weight without trying: No service: No Current occupational status: disabled Current occupation: Right hand dominate Cognitive needs: No Hearing needs: No Vision needs: Yes Meds Allergies Allergy/AdvReac Type Severity Reaction Status Date / Time Penicillins Allergy Mild RASH/DYSPNE Verified 01/15/24 07:16 A metformin AdvReac Intermediate stomach Verified 01/15/24 07:16 upset Home Medications ?Medication ?Instructions ?Recorded ?Confirmed ?Last Taken ?Type lorazepam 0.5 mg tablet 0.5 mg PO DAILY PRN Shortness Of 04/16/20 01/11/24 Unknown History Breath Or Wheezing zolpidem 5 mg tablet 5 mg PO BEDTIME PRN 04/16/20 01/09/24 Unknown History sertraline 100 mg tablet 100 mg PO DAILY PRN Anxiety 12/14/23 01/11/24 Unknown History sertraline 50 mg tablet 50 mg PO DAILY PRN 12/14/23 01/09/24 Unknown History Exam Exam Date and Time: January 15, 2024 0745 Height,Weight and Vital Signs: Height 5 ft 2 in Weight 71.214 kg Vital Signs Temperature 97.8 F 01/15/24 06:52 Pulse Rate 81 01/15/24 06:52 Respiratory Rate 16 01/15/24 06:52 Blood Pressure 127/74 01/15/24 06:52 Pulse Oximetry 97 01/15/24 06:52 Oxygen Delivery Method Room Air 01/15/24 06:52 Temperature 97.8 F 01/15/24 06:52 Pulse Rate 81 01/15/24 06:52 Respiratory Rate 16 01/15/24 06:52 Blood Pressure 127/74 01/15/24 06:52 Pulse Oximetry 97 01/15/24 06:52 Oxygen Delivery Method Room Air 01/15/24 06:52 Airway Mallampati Class: II TM Dist: >3cm Partial: Upper Heart: S1S2 Lungs: CTAB Assessment and Plan Assessment Anesthesia Assessment: Anesthesia Plan Discussed and Chart Reviewed Final Anesthetic Review Family History of Problems with Anesthesia: No History of Problems with Anesthesia: No NPO: Yes ASA Class: III Final Preanesthetic Review: No Changes in Pt Med Stat, Meds/Allgs Chart Revi ewed, Consent Obtained/Reviewed (educational interpreter at bedside for translation) and Anes Risks/Benef Reviewed Patient Risk: Intermediate Procedure Risk: Low Anesthetic Plan Anesthetic Plan: MAC: and Agree w/ Assess. and Plan Disposition: Standard PACU
--- NOTE | 2024-01-15 08:23 | MHC.SHP ---
Pre-Procedural Eval Section A - 24 Hr Update-Section A only Date of Service: 01/15/24 The patient is an INPATIENT: No Changes since office visit: No Cold of Flu in the past 2 weeks, No New Medical Problems, No Changes in Medication and No Patient answered all questions The patient has been examined within 24 hours of the surgical procedure. The History & Physical has been completed within 30 days and I have reviewed it.: Yes Section B - Complete if H&P > 30 days Chief Complaint: Age-related nuclear cataract, left eye Allergies: Allergies Allergy/AdvReac Type Severity Reaction Status Date / Time Penicillins Allergy Mild RASH/DYSPNE Verified 01/15/24 07:16 A metformin AdvReac Intermediate stomach Verified 01/15/24 07:16 upset Plan Diagnosis/Plan: Unchanged I have reviewed the history and physical and performed a pertinent physical examination on my patient. No changes have occurred unless specified. Time Spent With Patient Time: Total time managing care of this patient today ____ minutes.
--- NOTE | 2024-01-15 08:24 | HO.PNOPHT ---
Ophthalmology Procedure Procedure Date of Service: 01/15/24 Ophthalmology Viscoelastic: Healon Duet Dual Pack Pro Ophthalmology Lenses: IOL Acrysof MP - MA60AC (21) Procedure Notes: PREOPERATIVE DIAGNOSIS: Decreased visual acuity left eye secondary to cataract POSTOPERATIVE DIAGNOSIS: Same PROCEDURE: Left cataract extraction with intraocular lens insertion SURGEON: Hayden Chino M.D. ANESTHESIA: Topical/MAC ESTIMATED BLOOD LOSS: None COMPLICATIONS: None After obtaining informed consent, the patient was brought to the operation room suite and placed in the supine position. After adequate sedation per anesthesia, topical drops of Tetracaine were given to the left eye. The eye was then prepped and draped in the usual sterile fashion. The operating room microscope was then positioned over the operative eye and a lid speculum placed. A paracentesis was created. Viscoelastic was then instilled into the anterior chamber. A three plane incision was then created temporally, utilizing a 2.85 mm keratome. Capsulotomy forceps were then utilized to create a circular tear capsulotomy. Hydrodissection and hydrodelineation were carried out until adequate mobilization of the nucleus occurred. Phacoemulsification was then utilized to remove the dense central nucleus followed by removal of the cortical material utilizing the automated aspiration irrigation unit. Viscoat elastic was instilled into the posterior capsular bag followed by placement of a posterior chamber intraocular lens without difficulty. The residual Viscoat elastic was then removed utilizing the automated IA machine. The wound was check and found to be watertight. The patient tolerated the procedure well and the lid speculum was removed. Intracameral injection of Vigamox 0.1 mL followed by a subtenon injection of Kenalog-40 0.2 mL were administered. The patient will be seen in the a.m.
[2024-01-15 08:52] VITALS: BP 126/68; PULSE 78; RESP 16; TEMP 36.6; O2SAT 97
== END 2024-01-15 08:58 | disposition home or self-care (01) ==
PROVIDERS: PCP Internal Medicine; Visit Provider Ophthalmology
PROC: (CPT 66985; principal; 2024-01-15 08:20)
DX: H25.12 Age-related nuclear cataract, left eye (principal); H52.4 Presbyopia; Z83.511 Family history of glaucoma; H35.09 Other intraretinal microvascular abnormalities; H11.153 Pinguecula, bilateral; E78.00 Pure hypercholesterolemia, unspecified; E11.42 Type 2 diabetes mellitus with diabetic polyneuropathy; E11.65 Type 2 diabetes mellitus with hyperglycemia; I10 Essential (primary) hypertension; J45.909 Unspecified asthma, uncomplicated; F32.A Depression, unspecified; D51.0 Vitamin B12 deficiency anemia due to intrinsic factor deficiency; F41.8 Other specified anxiety disorders; Z79.4 Long term (current) use of insulin; Z79.1 Long term (current) use of non-steroidal anti-inflammatories (NSAID); Z79.51 Long term (current) use of inhaled steroids; Z79.899 Other long term (current) drug therapy; Z88.0 Allergy status to penicillin; Z88.8 Allergy status to other drugs, medicaments and biological substances; Z98.890 Other specified postprocedural states
CPT/HCPCS: 66984; 82947; J2250; J2405; J3010; J3301; V2630

== ENCOUNTER 2024-01-17 15:52 | Outpatient (AMB) | payer OTHER, SELFPAY ==
--- NOTE | 2024-01-17 16:17 | MHC.PC.OV ---
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 Accompanied by: Self / Same As Patient Allergies Penicillins Allergy (Mild, Verified 01/17/24 16:36) RASH/DYSPNEA metformin Adverse Reaction (Intermediate, Verified 01/17/24 16:36) stomach upset Medication List - Last Reconciled 01/17/24 by Norma Bland MD albuterol sulfate 90 mcg/actuation (ProAir HFA) 2 puffs inhalation Q4-6H PRN albuterol sulfate 2.5 mg (3 mL) inhalation Q4-6H PRN atorvastatin 40 mg PO BEDTIME 90 days blood sugar diagnostic (FreeStyle Lite Strips) As directed four times a day blood-glucose meter (FreeStyle Lite Meter kit) use as directed to test blood sugar 4x per day blood-glucose meter,continuous (DexBlenderHouse G7 Chemical Dependency Therapist) As directed blood-glucose sensor (Dexcom G7 Sensor device) As directed change every 10 days canagliflozin 100 mg PO DAILY 30 days cholecalciferol (vitamin D3) (Vitamin D3) 25 mcg PO DAILY 90 days clotrimazole-betamethasone 1-0.05 % 1 appl topical BID 5 days cyanocobalamin (vitamin B-12) 500 mcg sublingual DAILY 90 days docusate sodium 100 mg PO BEDTIME famotidine (Pepcid) 20 mg PO BEDTIME fluticasone propion-salmeterol 115-21 mcg/actuation (Advair HFA) 2 puffs inhalation Q12H fluticasone propionate 50 mcg/actuation (Flonase Allergy Relief) 1 spray intranasal DAILY heating pads As directed incontinence pad, liner, disp Use 1 pad twice a day insulin lispro (Humalog KwikPen (U-100) Insulin) 6 - 8 units (0.06 - 0.08 mL) subcut TID lancets (FreeStyle Lancets) 4 times a day Lantus Solostar U-100 Insulin (insulin glargine) 42 units (0.42 mL) subcut DAILY 90 days NS lidocaine 5% 1 patch topical DAILY linaclotide (Linzess) 290 mcg PO QAM lorazepam 0.5 mg PO DAILY PRN lorazepam (Ativan) 1 mg PO ONCE PRN metoclopramide HCl 5 mg PO DAILY 90 days miconazole nitrate 2% 1 appful vaginal BEDTIME 7 days montelukast 10 mg PO DAILY nebulizer accessories NEBULIZER FACE MASK ADULT, USE DIRECTED nebulizers (AeroEclipse II Nebulizer) As directed pantoprazole 40 mg PO DAILY pioglitazone 45 mg PO DAILY 90 days polyethylene glycol 3350 (Miralax) 17 grams PO DAILY 30 days sertraline 50 mg PO DAILY PRN sertraline 100 mg PO DAILY PRN Shower Chair As directed silver sulfadiazine 1% (Silvadene) 1 appl topical DAILY 2 weeks simethicone 125 mg PO BID-QID PRN solifenacin (Vesicare) 5 mg PO DAILY 30 days [toilet seat elevator As directed] Ventolin HFA 90 mcg/actuation (albuterol sulfate) 2 puffs inhalation Q6H PRN 30 days NS zolpidem 5 mg PO BEDTIME PRN Tobacco use date assessed: 10/23/23 Dental Screening Dental Screen Date: 10/23/23 HPI HPI Comments History of Present Illness Details This is a 58-year-old female with diabetes mellitus type 2 on long-term current use of insulin, dyslipidemia and moderate recurrent major depression that comes today complaining of gingival inflammation, tenderness and redness that started few days ago. This is surrounding her fake tooth. I will start her on antibiotics and give flu lidocaine ointment for gingivitis. I recommend to call her dentist. Last A1c last month was elevated and this is follow by Endocrinology which is going to place an insulin pump on her. Lipid panel was order and her LDL goal should be less than 70. Depression has been stable with SSRIs. [facility] Medical History (Updated 01/17/24 @ 18:38 by Norma Bland MD) Ear discomfort Palpitations Overweight Type 2 diabetes mellitus with diabetic polyneuropathy B12 deficiency DM2 (diabetes mellitus, type 2) Tubular adenoma Moderate recurrent major depression Dyslipidemia Umbilical hernia Edema Arthritis Ear pain MCFP (current) use of insulin Pernicious anemia Hearing loss Insomnia Depression with anxiety Moderate asthma Essential hypertension Polyarthralgia GERD (gastroesophageal reflux disease) Diabetes Hearing loss Surgical History History of cholecystectomy History of umbilical hernia repair History of foot surgery History of carpal tunnel release History of surgery on arm History of endometrial ablation History of tubal ligation Family History Mother Breast cancer Paternal Grandmother Breast cancer Brother Colon cancer Family/Other FH: mental illness Mental health disorder Father CAD (coronary artery disease) Social History Household Members: Children Housing: Apartment Are you a primary critical care transport nurse to a significant other at home: No Do you presently have visiting nurse or other home services: Yes (OFFICE SUPPORT) Alcohol intake: never Patient Tobacco Use Status: Never used Tobacco e-Cigarette/Vaping Use: Never Used Second Hand Smoke Exposure: No service: No Current occupational status: disabled Current occupation: Right hand dominate Cognitive needs: No Hearing needs: No Vision needs: Yes Female Reproductive History Menstrual Age of Menarche: 11 Questionnaire Thrive Questionnaire Date Thrive assessed: 10/23/23 LIANA-7 AMB Questionnaire LIANA-7 Date LIANA - 7 assessed: 10/23/23 Source: Developed by Drs. Hernandez Love, Rebecca Peacock, Kalyan Becker and colleagues, with an educational julio from [employer]. Review of Systems Const All systems reviewed & are unremarkable except as noted in HPI and below Card Denies chest pain at rest, Denies chest pain with activity, Denies edema, Denies irregular heart rhythm, Denies claudication, Denies dyspnea, Denies dyspnea on exertion, Denies orthopnea, Denies paroxysmal nocturnal dyspnea and Denies slow heart rate Resp Denies cough, Denies dyspnea and Denies dyspnea on exertion GI Denies abdominal pain, Denies change in bowel habits, Denies excessive flatus, Denies nausea and Denies vomiting Physical exam (Primary Care) Vital Signs: Last Vital Signs BP 118/80 01/17/24 16:19 BMI result Body Mass Index 28.7 BMI Assessment/Plan discussion: High BMI High, discussed plan: lifestyle, weight reduction, dietary and physical activity Tobacco/Smoking Status: Tobacco use Status Tobacco use date assessed 10/23/23 01/17/24 16:23 Patient Tobacco Use Status Never used Tobacco 01/17/24 16:23 e-Cigarette/Vaping Use Never Used 01/17/24 16:23 Thrive Assessment: Date of Thrive Assessment Date Thrive assessed 10/23/23 01/17/24 16:23 HENMT Teeth and gingiva: gingiva abnormal edematous, diffusely erythematous and tender Resp Effort & Inspection: normal respiratory effort Auscultation: clear to auscultation bilaterally Cardio Jugular venous distension: no JVD Rate: regular rate Rhythm: regular rhythm Heart sounds: S1 normal heart sound present and S2 normal heart sound present Extrem General: Yes full ROM Assessment and Plan Assessment & Plan (1) Moderate recurrent major depression: Code(s): F33.1 - Major depressive disorder, recurrent, moderate Plan: Continue SSRIs. (2) DM2 (diabetes mellitus, type 2): Code(s): E11.9 - Type 2 diabetes mellitus without complications Qualifiers: Diabetes mellitus terminal operations supervisor insulin use: without terminal operations supervisor use Diabetes mellitus complication status: with hyperglycemia Qualified Code(s): E11.65 - Type 2 diabetes mellitus with hyperglycemia Plan: Continue insulin. A1c goal is equal or less than 7%. Follow-up with endocrinology. (3) Dyslipidemia: Code(s): E78.5 - Hyperlipidemia, unspecified Plan: Continue statins. Repeat lipid panel. LDL goal is less than 70. (4) Gingivitis: Code(s): K05.10 - Chronic gingivitis, plaque induced Plan: Start antibiotics and lidocaine ointment. Call your dentist. Medications: New lidocaine HCl 2% 1 appl mucous membrane BID PRN 100 mL 0RF pain 30 days clindamycin HCl 300 mg PO TID 21 caps 0RF 7 days Coding Level of Care Code Est Pt Level 4 (41316) Complex EM visit Add On G2211 Diagnoses Moderate recurrent major depression F33.1 Type 2 diabetes mellitus with hyperglycemia, without long-term current use of insulin E11.65 Diabetes mellitus terminal operations supervisor insulin use: without terminal operations supervisor use Diabetes mellitus complication status: with hyperglycemia Dyslipidemia E78.5 Gingivitis K05.10 Time Spent (min) 21
[2024-01-17 16:19] VITALS: BP 118/80; BMI 28.7
== END 2024-01-17 16:44 | disposition home or self-care (01) ==
PROVIDERS: PCP Internal Medicine; Visit Provider Internal Medicine
DX: E11.65 Type 2 diabetes mellitus with hyperglycemia (principal); F33.1 Major depressive disorder, recurrent, moderate; E78.5 Hyperlipidemia, unspecified; K05.10 Chronic gingivitis, plaque induced
CPT/HCPCS: 99214; G2211

== ENCOUNTER 2024-01-29 07:00 | Day surgery (SDC) | payer OTHER, SELFPAY ==
[2024-01-11 16:13] VITALS: BMI 27.8
[2024-01-29 08:14] VITALS: BP 108/66; PULSE 67; RESP 18; TEMP 36.3; O2SAT 98; BMI 27.8
[2024-01-29 08:14] LABS: Glucose, Whole Blood 175 mg/dL (60-115)
--- NOTE | 2024-01-29 08:15 | P.CONAN_ITS ---
Documented by User: Paula French NP 01/25/24 13:17 HPI - Anesthesia Eval Consult details Narrative: 58yo F for Right Cataract Extraction IOL Insertion Left eye 01/15/24: Fent 50, Midaz 2, Zofran 4 Anesthesia Pre-Procedure Meds Is the patient on any of the following meds?: SGLT2 Inhib PMFSH Active Problems Active Problems: All Active Problems Gingivitis (Acute) Pre-op evaluation (Acute) Vaginal irritation (Acute) Proteinuria (Acute) Stress incontinence (Acute) Atelectasis, right (Acute) Environmental and seasonal allergies (Acute) Uterine myoma (Acute) Atelectasis, bilateral (Acute) Right shoulder pain (Acute) Urine incontinence (Acute) Urinary frequency (Acute) Post-COVID syndrome (Acute) Pharyngitis (Acute) ETD (eustachian tube dysfunction) (Acute) Physical exam (Acute) Asthma exacerbation (Acute) Right foot injury (Acute) Hyperlipidemia LDL goal <70 (Acute) Neck pain (Acute) Hearing loss (Acute) Right hip pain (Acute) Microscopic hematuria (Acute) Urinary tract infection (Acute) Foamy urine (Acute) Rhinitis (Acute) Family history of breast cancer in mother (Acute) Pelvic pain (Acute) Breast lump (Acute) Well woman exam (Acute) Fatigue (Acute) Ear discomfort (Acute) Palpitations (Acute) COVID-19 (Acute) Overweight (Acute) Tinea pedis (Acute) Type 2 diabetes mellitus with diabetic polyneuropathy (Acute) B12 deficiency (Acute) DM2 (diabetes mellitus, type 2) (Acute) Tubular adenoma (Acute) Left serous otitis media (Acute) Right otitis media (Acute) Otalgia, right ear (Acute) Moderate recurrent major depression (Acute) Bruised toe (Acute) Atrophic vaginitis (Acute) Candidal vulvovaginitis (Acute) Dyslipidemia (Acute) Breast calcification, left (Acute) Umbilical hernia (Acute) Edema (Acute) Arthritis (Acute) Ear pain (Acute) 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 (Acute) Pernicious anemia (Acute) Asthma (Acute) Otitis media (Acute) Hearing loss (Acute) Insomnia (Acute) Moderate asthma (Acute) Essential hypertension (Acute) Polyarthralgia (Acute) GERD (gastroesophageal reflux disease) (Acute) Type 2 diabetes mellitus with other diabetic neurological complication (Acute) Diabetes (Acute) Otitis externa (Acute) Hearing loss (Acute) Past Medical History Medical History Ear discomfort Palpitations Overweight Type 2 diabetes mellitus with diabetic polyneuropathy B12 deficiency DM2 (diabetes mellitus, type 2) Tubular adenoma Moderate recurrent major depression Dyslipidemia Umbilical hernia Edema Arthritis Ear pain 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 Pernicious anemia Hearing loss Insomnia Depression with anxiety Moderate asthma Essential hypertension Polyarthralgia GERD (gastroesophageal reflux disease) Diabetes Hearing loss Family History Family History Mother Breast cancer Paternal Grandmother Breast cancer Brother Colon cancer Family/Other FH: mental illness Mental health disorder Father CAD (coronary artery disease) Family history of problems with anesthesia: No Surgical History Surgical History History of cholecystectomy History of umbilical hernia repair History of foot surgery History of carpal tunnel release History of surgery on arm History of endometrial ablation History of tubal ligation History of Problems with Anesthesia: No Social History Social History Household Members: Children Housing: Apartment Are you a primary hearing healthcare practitioner to a significant other at home: No Do you presently have visiting nurse or 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 If so, by whom?: No Are you DNR?: No Advance Directives: No Advance Directives Information Provided: Yes Advance Directives on File: No service: No Current occupational status: disabled Current occupation: Right hand dominate Cognitive needs: No Hearing needs: No Vision needs: Yes Meds Allergies Allergy/AdvReac Type Severity Reaction Status Date / Time Penicillins Allergy Mild RASH/DYSPNE Verified 01/17/24 16:36 A metformin AdvReac Intermediate stomach Verified 01/17/24 16:36 upset Home Medications ?Medication ?Instructions ?Recorded ?Confirmed ?Last Taken ?Type lorazepam 0.5 mg tablet 0.5 mg PO DAILY PRN Shortness Of 04/16/20 01/17/24 Unknown History Breath Or Wheezing zolpidem 5 mg tablet 5 mg PO BEDTIME PRN 04/16/20 01/17/24 Unknown History sertraline 100 mg tablet 100 mg PO DAILY PRN Anxiety 12/14/23 01/17/24 Unknown History sertraline 50 mg tablet 50 mg PO DAILY PRN 12/14/23 01/17/24 Unknown History Exam Height,Weight and Vital Signs: Height 5 ft 3 in Weight 71.214 kg Assessment and Plan Assessment Anesthesia Assessment: Chart Reviewed Final Anesthetic Review Family History of Problems with Anesthesia: No History of Problems with Anesthesia: No Documented by User: Marybeth Nails DO 01/29/24 08:19 HPI - Anesthesia Eval Anesthesia Pre-Procedure Meds Is the patient on any of the following meds?: SGLT2 Inhib PMFSH Past Medical History Medical History Ear discomfort Palpitations Overweight Type 2 diabetes mellitus with diabetic polyneuropathy B12 deficiency DM2 (diabetes mellitus, type 2) Tubular adenoma Moderate recurrent major depression Dyslipidemia Umbilical hernia Edema Arthritis Ear pain 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 Pernicious anemia Hearing loss Insomnia Depression with anxiety Moderate asthma Essential hypertension Polyarthralgia GERD (gastroesophageal reflux disease) Diabetes Hearing loss Family History Family History Mother Breast cancer Paternal Grandmother Breast cancer Brother Colon cancer Family/Other FH: mental illness Mental health disorder Father CAD (coronary artery disease) Family history of problems with anesthesia: No Surgical History Surgical History History of cholecystectomy History of umbilical hernia repair History of foot surgery History of carpal tunnel release History of surgery on arm History of endometrial ablation History of tubal ligation History of Problems with Anesthesia: No Social History Social History Household Members: Children Housing: Apartment Are you a primary hearing healthcare practitioner to a significant other at home: No Do you presently have visiting nurse or 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 If so, by whom?: No Are you DNR?: No Advance Directives: No Advance Directives Information Provided: Yes Advance Directives on File: No service: No Current occupational status: disabled Current occupation: Right hand dominate Cognitive needs: No Hearing needs: No Vision needs: Yes Meds Allergies Allergy/AdvReac Type Severity Reaction Status Date / Time Penicillins Allergy Mild RASH/DYSPNE Verified 01/17/24 16:36 A metformin AdvReac Intermediate stomach Verified 01/17/24 16:36 upset Home Medications ?Medication ?Instructions ?Recorded ?Confirmed ?Last Taken ?Type lorazepam 0.5 mg tablet 0.5 mg PO DAILY PRN Shortness Of 04/16/20 01/17/24 Unknown History Breath Or Wheezing zolpidem 5 mg tablet 5 mg PO BEDTIME PRN 04/16/20 01/17/24 Unknown History sertraline 100 mg tablet 100 mg PO DAILY PRN Anxiety 12/14/23 01/17/24 Unknown History sertraline 50 mg tablet 50 mg PO DAILY PRN 12/14/23 01/17/24 Unknown History Exam Exam Date and Time: January 29, 2024 0815 Height,Weight and Vital Signs: Height 5 ft 3 in Weight 71.214 kg Vital Signs Temperature 97.3 F 01/29/24 08:14 Pulse Rate 67 01/29/24 08:14 Respiratory Rate 18 01/29/24 08:14 Blood Pressure 108/66 01/29/24 08:14 Pulse Oximetry 98 01/29/24 08:14 Oxygen Delivery Method Room Air 01/29/24 08:14 Temperature 97.3 F 01/29/24 08:14 Pulse Rate 67 01/29/24 08:14 Respiratory Rate 18 01/29/24 08:14 Blood Pressure 108/66 01/29/24 08:14 Pulse Oximetry 98 01/29/24 08:14 Oxygen Delivery Method Room Air 01/29/24 08:14 Airway Mallampati Class: II TM Dist: >3cm Neck ROM: Full Partial: Upper Heart: S1S2 Lungs: CTAB Assessment and Plan Assessment Anesthesia Assessment: Anesthesia Plan Discussed and Chart Reviewed Final Anesthetic Review Family History of Problems with Anesthesia: No History of Problems with Anesthesia: No NPO: Yes ASA Class: III Final Preanesthetic Review: No Changes in Pt Med Stat, Meds/Allgs Chart Reviewed, Consent Obtained/Reviewed and Anes Risks/Benef Reviewed Patient Risk: Intermediate Procedure Risk: Low Anesthetic Plan Anesthetic Plan: MAC: and Agree w/ Assess. and Plan Disposition: Standard PACU
[2024-01-29] MEDS: Lactated Ringers 500 ML 50 ML IV (08:23)
[2024-01-29] MEDS: Tropicamide 1 % Ophth Sol 3 ML BTL 1 DROP EYE-RIGHT ×3 (08:23→08:29)
[2024-01-29] MEDS: Tetracaine HCl/PF 0.5% Oph Sol 4 ML DROPS 1 DROP EYE-RIGHT (08:23)
[2024-01-29] MEDS: Ketorolac Tromethamine 0.5% Op 10 ML DROPS 1 DROP EYE-RIGHT ×3 (08:24→08:30)
[2024-01-29] MEDS: Phenylephrine HCL 2.5% Oph SoL 2 ML BOTTLE 1 DROP EYE-RIGHT ×3 (08:24→08:30)
[2024-01-29] MEDS: Cyclopentolate 1 % Ophth Sol 2 ML DRPBTL 1 DROP EYE-RIGHT ×3 (08:25→08:30)
--- NOTE | 2024-01-29 09:10 | MHC.SHP ---
Pre-Procedural Eval Section A - 24 Hr Update-Section A only Date of Service: 01/29/24 The patient is an INPATIENT: No Changes since office visit: No Cold of Flu in the past 2 weeks, No New Medical Problems, No Changes in Medication and No Patient answered all questions The patient has been examined within 24 hours of the surgical procedure. The History & Physical has been completed within 30 days and I have reviewed it.: Yes Section B - Complete if H&P > 30 days Chief Complaint: Age-related nuclear cataract, right eye Allergies: Allergies Allergy/AdvReac Type Severity Reaction Status Date / Time Penicillins Allergy Mild RASH/DYSPNE Verified 01/17/24 16:36 A metformin AdvReac Intermediate stomach Verified 01/17/24 16:36 upset Plan Diagnosis/Plan: Unchanged I have reviewed the history and physical and performed a pertinent physical examination on my patient. No changes have occurred unless specified. Time Spent With Patient Time: Total time managing care of this patient today ____ minutes.
--- NOTE | 2024-01-29 09:11 | P.PCNO_ITS ---
Ophthalmology Procedure Procedure Date of Service: 01/29/24 Ophthalmology Viscoelastic: Healon Duet Dual Pack Pro Ophthalmology Lenses: IOL Acrysof MP - MA60AC (21.5) Procedure Notes: PREOPERATIVE DIAGNOSIS: Decreased visual acuity right eye secondary to cataract POSTOPERATIVE DIAGNOSIS: Same PROCEDURE: Right cataract extraction with intraocular lens insertion SURGEON: Hayden Chino M.D. ANESTHESIA: Topical/MAC ESTIMATED BLOOD LOSS: None COMPLICATIONS: None After obtaining informed consent, the patient was brought to the operating room suite and placed in the supine position. After adequate sedation per anesthesia, topical drops of Tetracaine were given to the right eye. The eye was then prepped and draped in the usual sterile fashion. The operating room microscope was then positioned over the operative eye and a lid speculum placed. A paracentesis was created. Viscoelastic was then instilled into the anterior chamber. A three plane incision was then created temporally, utilizing a 2.85 mm keratome. Capsulotomy forceps were then utilized to create a circular tear capsulotomy. Hydrodissection and hydrodelineation were carried out until adequate mobilization of the nucleus occurred. Phacoemulsification was then utilized to remove the dense central nu cleus followed by removal of the cortical material utilizing the automated aspiration irrigation unit. Viscoelastic was instilled into the posterior capsular bag followed by placement of a posterior chamber intraocular lens without difficulty. The residual Viscoelastic was then removed utilizing the automated IA machine. The wound was checked and found to be watertight. The patient tolerated the procedure well and the lid speculum was removed. Intracameral injection of Vigamox 0.1 mL followed by a subtenon injection of Kenalog-40 0.2 mL were administered. The patient will be seen in the a.m.
[2024-01-29 09:35] VITALS: BP 114/56; PULSE 66; RESP 14; TEMP 36.3; O2SAT 99
== END 2024-01-29 09:50 | disposition home or self-care (01) ==
PROVIDERS: PCP Internal Medicine; Visit Provider Ophthalmology
PROC: (CPT 66985; principal; 2024-01-29 09:20)
DX: H25.11 Age-related nuclear cataract, right eye (principal); H52.4 Presbyopia; Z83.511 Family history of glaucoma; H35.09 Other intraretinal microvascular abnormalities; H11.153 Pinguecula, bilateral; E11.9 Type 2 diabetes mellitus without complications; E78.00 Pure hypercholesterolemia, unspecified; K90.0 Celiac disease; J45.909 Unspecified asthma, uncomplicated; F32.A Depression, unspecified; Z79.899 Other long term (current) drug therapy; Z79.1 Long term (current) use of non-steroidal anti-inflammatories (NSAID); Z79.4 Long term (current) use of insulin; Z88.0 Allergy status to penicillin
CPT/HCPCS: 66984; 82947; J2250; J3010; J3301; V2630

== ENCOUNTER 2024-02-05 10:41 | Outpatient (AMB) | payer OTHER, SELFPAY ==
[2024-02-05 10:46] VITALS: BP 114/62; PULSE 80; O2SAT 97; BMI 27.1
--- NOTE | 2024-02-05 10:46 | A.OFFVIS_ITS ---
Vital Signs 02/05/24 10:46 Height 5 ft 3 in Weight 153 lb 3.54 oz BMI 27.1 BP 114/62 Blood Pressure Location Rt brachial Position Sitting Pulse 80 Pulse Source Pulse Oximeter Pulse Oximetry (%) 97 Oxygen Delivery Method Room Air Intake Visit Reasons: Atelectasis Director Records Management Required: Yes Director Records Management Language: Mock Up Maker Name: [id number] Iraj Allergies Penicillins Allergy (Mild, Verified 02/05/24 10:51) RASH/DYSPNEA metformin Adverse Reaction (Intermediate, Verified 02/05/24 10:51) stomach upset HPI HPI Atelectasis: Details: Mellisa is a pleasant 58 year old female, never smoker, with underlying asthma, GERD, DMII, and HTN. She was referred by PCP after abnormal CXR revealing right basilar atelectasis on 10/17/23. Of note, at this time patient was treated with doxycyline and prednisone for cough and dyspnea. Since being treated, she reports significant improvement in symptoms. At the last visit she was started on Advair 115 mcg and continues to use albuterol on a daily basis for dyspnea with moderate exertion and dry cough. Today she presents to review RAST and CXR. She denies any visits to urgent care or hospitalizations since the last visit. 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 Pernicious anemia Hearing loss Insomnia Depression with anxiety Moderate asthma Essential hypertension Polyarthralgia GERD (gastroesophageal reflux disease) Diabetes Hearing loss Surgical History History of cholecystectomy History of umbilical hernia repair History of foot surgery History of carpal tunnel release History of surgery on arm History of endometrial ablation History of tubal ligation Family History Mother Breast cancer Paternal Grandmother Breast cancer Brother Colon cancer Family/Other FH: mental illness Mental health disorder Father CAD (coronary artery disease) Social History Household Members: Children Housing: Apartment Are you a primary home care aide to a significant other at home: No Do you presently have visiting nurse or other home services: Yes (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) Alcohol intake: never Patient Tobacco Use Status: Never used Tobacco e-Cigarette/Vaping Use: Never Used Second Hand Smoke Exposure: No service: No Current occupational status: disabled Current occupation: Right hand dominate Cognitive needs: No Hearing needs: No Vision needs: Yes Female Reproductive History Menstrual Age of Menarche: 11 Review of Systems Const Denies chills, Denies excessive sweating, Denies fever(s), Denies headache(s) and Denies night sweats Eyes Denies dry eyes, Denies irritation and Denies itchy eyes ENT Reports Normal hearing present, Denies headache(s), Denies nasal congestion, Denies nasal discharge, Denies post nasal drip and Denies sore throat Card Denies chest pain, Denies chest pain at rest, Denies chest pain with activity, Denies claudication, Denies leg edema, Denies orthopnea and Denies paroxysmal nocturnal dyspnea Resp Denies chest congestion, Denies excessive phlegm production, Denies pain on inspiration, Denies pain with cough and Denies stridor Musc Denies myalgias Neuro Reports Normal hearing present and Denies headache(s) Endo Denies excessive sweating Kranthi/Lymph Denies lymphadenopathy Aller/Immun Denies itchy eyes and Denies seasonal rhinorrhea Physical Exam Vital Signs: Last Vital Signs Pulse 80 02/05/24 10:46 BP 114/62 02/05/24 10:46 Pulse Ox 97 02/05/24 10:46 Oxygen Delivery Method Room Air 02/05/24 10:46 BMI result Body Mass Index 27.1 Const General: cooperative, healthy appearing, comfortable, no acute distress, well developed and alert Orientation/consciousness: patient oriented x3 Limitations: no limitations HEENT Head: Yes normal to inspection, Yes normocephalic and Yes atraumatic Ears: hearing grossly normal bilaterally and external ears normal Eyes General: appearance normal, both eyes and all related structures Eyelids: Yes eyelids normal Sclerae: sclerae normal EOM: EOMs intact bilaterally Neck Neck: Yes normal visual inspection and Yes no lymphadenopathy Lymphatic: no lymphadenopathy noted Chest Chest palpation & inspection: normal inspection of the chest Resp Effort & Inspection: normal respiratory effort, able to speak in complete sentences, no audible wheezes, no cough, no stridor, not tachypneic, no tripod positioning and no use of accessory muscles Auscultation: clear to auscultation bilaterally Cardio Jugular venous distension: no JVD Rate: regular rate Rhythm: regular rhythm Skin Other: warm, dry General skin exam: no rashes or lesions noted Neuro General: patient oriented x3 Cranial nerves: Yes Normal hearing present Cognition (Neuro): normal cognition Gait exam (Neuro): Normal gait present Extrem General: Yes normal to inspection, Yes capillary refill normal, Yes no clubbing, cyanosis or edema and Yes no pedal edema Psych Appearance: grossly normal and well kempt Speech and movement: Normal speech and movement present and Clear speech present Affect: normal affect Attitude: cooperative Thought process: Normal thought process present Thought content: Normal thought content present Insight: Good insight present (Psych) Judgement: Good judgement present (Psych) Quality Reporting (2019) Adult ([facility] 138/08/24/68) Smoking risk assessment performed?: Yes Patient Tobacco Use Status: Never used Tobacco Assessment & Plan Assessment & Plan (1) Asthma: Code(s): J45.909 - Unspecified asthma, uncomplicated Category: Medical Qualifiers: Asthma severity: moderate Asthma persistence: unspecified Asthma complication type: with acute exacerbation Qualified Code(s): J45.901 - Unspecified asthma with (acute) exacerbation (2) Environmental and seasonal allergies: Code(s): J30.89 - Other allergic rhinitis Category: Medical Plan Mellisa initially presented for evaluation after CXR revealed RLL atelectasis, repeat CXR unremarkable. RAST negative.At this time she reports suboptimal control of respiratory symptoms using albuterol frequently, will increase Advair. PFT awaiting to be scheduled, order placed at last visit. All questions were answered and patient is in agreement of plan. Will follow up in 8-10 weeks or sooner if needed. Medications: New fluticasone propion-salmeterol 230-21 mcg/actuation (Advair HFA) 2 puffs inhalation Q12H 12 grams 3RF Discontinued fluticasone propion-salmeterol 115-21 mcg/actuation (Advair HFA) Discontinued Reason: More recent result 2 puffs inhalation Q12H 12 grams 6RF Coding Level of Care Code Est Pt Level 4 (17187) Diagnoses Moderate asthma with acute exacerbation, unspecified whether persistent J45.901 Asthma severity: moderate Asthma persistence: unspecified Asthma complication type: with acute exacerbation Environmental and seasonal allergies J30.89
== END 2024-02-05 11:09 | disposition home or self-care (01) ==
PROVIDERS: PCP Internal Medicine; Visit Provider Nurse Practitioner Family
DX: J45.901 Unspecified asthma with (acute) exacerbation (principal); J30.89 Other allergic rhinitis
CPT/HCPCS: 99214

== ENCOUNTER → 2024-02-05 10:41 | Outpatient (BNVA) | payer OTHER, SELFPAY | PROVIDERS: PCP Internal Medicine; Visit Provider Nurse Practitioner Family | DX: J45.901 Unspecified asthma with (acute) exacerbation (principal); J30.89 Other allergic rhinitis | CPT/HCPCS: 99212 ==

== ENCOUNTER 2024-02-06 14:32 | Outpatient (AMB) | payer OTHER, SELFPAY ==
--- NOTE | 2024-02-06 16:39 | MHC.AMDMED ---
Intake Intake Visit Reasons: pump training [employer] Truck Driver Required: Yes [employer] Truck Driver Language: Rn Pediatric Services: [employer] Truck Driver Present [employer] Truck Driver Name: Matti [facility] Accompanied by: Self / Same As Patient Allergies Penicillins Allergy (Mild, Verified 02/05/24 10:51) RASH/DYSPNEA metformin Adverse Reaction (Intermediate, Verified 02/05/24 10:51) stomach upset HPI Comprehensive Diabetes Asmnt Most Recent Diabetes Results: No Data to Display PFSH Medical History Ear discomfort Palpitations Overweight Type 2 diabetes mellitus with diabetic polyneuropathy B12 deficiency DM2 (diabetes mellitus, type 2) Tubular adenoma Moderate recurrent major depression Dyslipidemia Umbilical hernia Edema Arthritis Ear pain 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 Pernicious anemia Hearing loss Insomnia Depression with anxiety Moderate asthma Essential hypertension Polyarthralgia GERD (gastroesophageal reflux disease) Diabetes Hearing loss Surgical History History of cholecystectomy History of umbilical hernia repair History of foot surgery History of carpal tunnel release History of surgery on arm History of endometrial ablation History of tubal ligation Family History Mother Breast cancer Paternal Grandmother Breast cancer Brother Colon cancer Family/Other FH: mental illness Mental health disorder Father CAD (coronary artery disease) Social History Household Members: Children Housing: Apartment Are you a primary hospice care transitions coordinator to a significant other at home: No Do you presently have visiting nurse or other home services: Yes (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 The following topics were reviewed today: -Pump therapy basic concepts: Basal/bolus -Device settings: Bluetooth/mobile connection (if applicable), correct date and time, sound volume -CGM settings(if integrated system): CGM graft views and trend arrows, alerts and alarms, Start new sensor Insulin delivery settings Instructed patient to only use room temperature insulin, how to load cartridge or fill pod, with insulin. Fill tubing and cannula (if applicable) Inserting infusion set or starting pod Troubleshooting after starting new pod or inserting new insulin set: Occlusion, adhesive tape sensitivity, redness Check BG 2 hours after site change Safety information: Importance of a backup plan, for manual injections, proper prescriptions and emergency supplies ketone strips, and rules for testing for ketones Patient was able to insert insulin set today without difficulty. Patient understands the basic concepts of pump therapy, how to give insulin for meals and snacks, how to troubleshoot for hyper and hypoglycemia. We were unable to download Staff Rankert sade on either patient's cellphones. Patient will connect with Afghan speaking [employer], at home later this afternoon to complete sade download Patient will follow up with CDE as instructed Patient will contact CDE with questions or concerns, patient given IT number to support in any technical issues related to insulin pump Portions of this note were created using voice recognition software, please excuse any words or phrases that may have been misinterpreted. Patient Instructions: Downloaded Staff Rankert sade, and update phone Patient will call Afghan-speaking customer service at [employer] for sade support Follow-up with visual educator in 1 week Coding Level of Care Code Est Pt Level 1 (29921) Diagnoses Type 2 diabetes mellitus with diabetic polyneuropathy E11.42
== END 2024-02-06 16:46 | disposition home or self-care (01) ==
PROVIDERS: PCP Internal Medicine; Visit Provider Registered Nurse Diabetes Educator
DX: E11.42 Type 2 diabetes mellitus with diabetic polyneuropathy (principal)

== ENCOUNTER → 2024-02-06 14:32 | Outpatient (BNVA) | payer OTHER, SELFPAY | PROVIDERS: PCP Internal Medicine; Visit Provider Registered Nurse Diabetes Educator | DX: E11.42 Type 2 diabetes mellitus with diabetic polyneuropathy (principal); Z46.81 Encounter for fitting and adjustment of insulin pump; Z79.4 Long term (current) use of insulin | CPT/HCPCS: 99211 ==

== ENCOUNTER 2024-02-15 11:36 | Outpatient (AMB) | payer OTHER, SELFPAY ==
[2024-02-15 11:39] VITALS: BMI 26.9
--- NOTE | 2024-02-15 11:39 | A.OFFVIS_ITS ---
Vital Signs 02/15/24 11:39 Height 5 ft 3 in Weight 152 lb 1.903 oz BMI 26.9 Intake Visit Reasons: Uterus pain/spotting Wood Lather Required: Yes Wood Lather Language: License Issuer Services: Wood Lather Present (in person) Wood Lather Name: Roseann GRIFFITH Information Interpreted: non-clinical & clinical Dean Of Students: Dean Of Students Present (Roseann GRIFFITH) Accompanied by: Self / Same As Patient Allergies Penicillins Allergy (Mild, Verified 02/15/24 11:50) RASH/DYSPNEA metformin Adverse Reaction (Intermediate, Verified 02/15/24 11:50) stomach upset Post menopausal: Yes HPI Comments Details: Presenting with a history of 2 episodes of vaginal bleeding over the last 3 weeks. The patient has been menopausal since the age of 50. 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 Pernicious anemia Hearing loss Insomnia Depression with anxiety Moderate asthma Essential hypertension Polyarthralgia GERD (gastroesophageal reflux disease) Diabetes Hearing loss Surgical History History of cholecystectomy History of umbilical hernia repair History of foot surgery History of carpal tunnel release History of surgery on arm History of endometrial ablation History of tubal ligation Family History Mother Breast cancer Paternal Grandmother Breast cancer Brother Colon cancer Family/Other FH: mental illness Mental health disorder Father CAD (coronary artery disease) Social History Household Members: Children Housing: Apartment Are you a primary customer care representative to a significant other at home: No Do you presently have visiting nurse or other home services: Yes (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) Alcohol intake: never Patient Tobacco Use Status: Never used Tobacco e-Cigarette/Vaping Use: Never Used Second Hand Smoke Exposure: No service: No Current occupational status: disabled Current occupation: Right hand dominate Cognitive needs: No Hearing needs: No Vision needs: Yes Female Reproductive History Menstrual Age of Menarche: 11 Review of Systems Const All systems reviewed & are unremarkable except as noted in HPI and below Physical Exam Vital Signs: BMI result Body Mass Index 26.9 General: Yes no CVA tenderness External Female Exam: normal external appearance and normal appearance of the urethra Speculum Exam - Vagina: normal appearance of the vagina, normal palpation, no lesions and no masses Speculum Exam - Cervix: normal appearance of the cervix, normal palpation, no lesions, no masses and nontender Bimanual exam- vagina & uterus: normal bimanual exam, normal palpation, uterine size normal, normal palpation, uterine shape normal, No Cervical tenderness present and non-tender Bimanual Exam- Adnexa, other: normal adnexae Back/Spine/Pelvis Back: no CVA tenderness Quality Reporting (2019) Adult ([facility] ) Smoking risk assessment performed?: Yes Patient Tobacco Use Status: Never used Tobacco Assessment & Plan Assessment & Plan (1) Postmenopausal bleeding: Comment: Recurrent History of endometrial ablation Myoma Code(s): N95.0 - Postmenopausal bleeding Category: Medical Plan: Discussed with the patient the differential diagnosis of post menopausal bleeding with normal pelvic exam including but not limited to, endometrial hyperplasia, cancer, polyps and other causes; recommended ultrasound to evaluate the endometrial stripe; and determine the indication for endometrial sampling via office endometrial biopsy versus versus hysteroscopy D&C polypectomy depending on the ultrasound findings. Instructed the patient to schedule an ultrasound with a follow-up appointment in 2 weeks. All questions answered, the patient verbalized understanding and agreed with the plan. This note was generated with a voice recognition program. Some errors may have been overlooked during the review of this note. Sometimes these errors may affect the content or meaning of a given sentence. Orders: Orders US pelvic and transvaginal Today N95.0 - Postmenopausal bleeding Coding Level of Care Code Est Pt Level 3 (92697) Diagnoses Postmenopausal bleeding N95.0
== END 2024-02-15 12:23 | disposition home or self-care (01) ==
LOC: HO.HWS 11:36
PROVIDERS: PCP Internal Medicine; Visit Provider Obstetrics & Gynecology
DX: N95.0 Postmenopausal bleeding (principal)
CPT/HCPCS: 99213

== ENCOUNTER → 2024-02-15 11:36 | Outpatient (BNVA) | payer OTHER, SELFPAY | PROVIDERS: PCP Internal Medicine; Visit Provider Obstetrics & Gynecology | DX: N95.0 Postmenopausal bleeding (principal) | CPT/HCPCS: 99212 ==

== ENCOUNTER 2024-02-29 12:36 | Outpatient (REF) | payer OTHER, SELFPAY ==
--- NOTE | ~2024-02-29 | US_ITS ---
EXAMINATION: US PELVIS CLINICAL INFORMATION: Postmenopausal bleeding. COMPARISON: Ultrasound pelvis 10/12/2023 TECHNIQUE: Ultrasound of the pelvis is performed using both transabdominal and transvaginal transducers along with Doppler. Transvaginal imaging is performed due to inadequate visualization transabdominally. FINDINGS: Uterus: The uterus is anteverted and measures 5.9 x 2.8 x 4.2 cm. The double wall endometrial thickness is 3 mm. The uterus is smooth in contour and has normal myometrial echogenicity. Fundal fibroid is again seen and appears minimally smaller on the current study compared to prior, measuring 1.1 x 1.1 x 0.9 cm (previously 1.2 x 1.3 x 1.2 cm). Adnexa: Both ovaries are visualized, although the left ovary is not visualized optimally. There is normal color flow to the adnexa. There is no ovarian torsion. There is no pelvic ascites or fluid collection. Right ovary measures 2.4 x 1.3 x 1.7 cm. Left ovary measures 1.8 x 1.3 x 1.3 cm. US/US pelvic and transvaginal IMPRESSION: Fundal fibroid is minimally smaller. Electronically signed by: Mich Nicole MD 03/04/2024 09:55 PM EDT
== END 2024-02-29 12:37 | disposition home or self-care (01) ==
LOC: HO.US 12:36
PROVIDERS: PCP Internal Medicine; Visit Provider Obstetrics & Gynecology
DX: N95.0 Postmenopausal bleeding (principal)
CPT/HCPCS: 76830; 76856

== ENCOUNTER 2024-03-01 10:14 | Outpatient (AMB) | payer OTHER, SELFPAY ==
--- NOTE | 2024-03-01 10:15 | MHC.OFFVIS ---
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 At baseline, she has been well controlled on Advair 230 mcg and albuterol MDI. Today she presents for an acute visit. She reports worsening symptoms with wheezing, dyspnea and dry cough. She has been using her albuterol MDI frequently with minimal relief. She denies fevers, chills, or sick contacts. 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 Pernicious anemia Hearing loss Insomnia Depression with anxiety Moderate asthma Essential hypertension Polyarthralgia GERD (gastroesophageal reflux disease) Diabetes Hearing loss Surgical History History of cholecystectomy History of umbilical hernia repair History of foot surgery History of carpal tunnel release History of surgery on arm History of endometrial ablation History of tubal ligation Family History Mother Breast cancer Paternal Grandmother Breast cancer Brother Colon cancer Family/Other FH: mental illness Mental health disorder Father CAD (coronary artery disease) Social History Household Members: Children Housing: Apartment Are you a primary senior care assistant to a significant other at home: No Do you presently have visiting nurse or other home services: Yes (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) Alcohol intake: never Patient Tobacco Use Status: Never used Tobacco e-Cigarette/Vaping Use: Never Used Second Hand Smoke Exposure: No service: No Current occupational status: disabled Current occupation: Right hand dominate Cognitive needs: No Hearing needs: No Vision needs: Yes Female Reproductive History Menstrual Age of Menarche: 11 Review of Systems Const Denies chills, Denies excessive sweating, Denies fever(s), Denies headache(s) and Denies night sweats Eyes Denies dry eyes, Denies irritation and Denies itchy eyes ENT Reports Normal hearing present, Denies headache(s), Denies nasal congestion, Denies nasal discharge, Denies post nasal drip and Denies sore throat Card Denies chest pain, Denies chest pain at rest, Denies chest pain with activity, Denies claudication, Denies leg edema, Denies orthopnea and Denies paroxysmal nocturnal dyspnea Resp Denies chest congestion, Denies excessive phlegm production, Denies pain on inspiration, Denies pain with cough and Denies stridor Musc Denies myalgias Neuro Reports Normal hearing present and Denies headache(s) Endo Denies excessive sweating Kranthi/Lymph Denies lymphadenopathy Aller/Immun Denies itchy eyes and Denies seasonal rhinorrhea Physical Exam Vital Signs: Last Vital Signs Pulse 79 03/01/24 10:17 BP 102/58 L 03/01/24 10:17 Pulse Ox 98 03/01/24 10:17 Oxygen Delivery Method Room Air 03/01/24 10:17 BMI result Body Mass Index 27.5 Const General: cooperative, healthy appearing, comfortable, no acute distress, well developed and alert Orientation/consciousness: patient oriented x3 Limitations: no limitations HEENT Head: Yes normal to inspection, Yes normocephalic and Yes atraumatic Ears: hearing grossly normal bilaterally and external ears normal Eyes General: appearance normal, both eyes and all related structures Eyelids: Yes eyelids normal Sclerae: sclerae normal EOM: EOMs intact bilaterally Neck Neck: Yes normal visual inspection and Yes no lymphadenopathy Lymphatic: no lymphadenopathy noted Chest Chest palpation & inspection: normal inspection of the chest Resp Effort & Inspection: normal respiratory effort, able to speak in complete sentences, no audible wheezes, Actively coughing, no stridor, not tachypneic, no tripod positioning and no use of accessory muscles Auscultation: wheezes Cardio Jugular venous distension: no JVD Rate: regular rate Rhythm: regular rhythm Skin Other: warm, dry General skin exam: no rashes or lesions noted Neuro General: patient oriented x3 Cranial nerves: Yes Normal hearing present Cognition (Neuro): normal cognition Gait exam (Neuro): Normal gait present Extrem General: Yes normal to inspection, Yes capillary refill normal, Yes no clubbing, cyanosis or edema and Yes no pedal edema Psych Appearance: grossly normal and well kempt Speech and movement: Normal speech and movement present and Clear speech present Affect: normal affect Attitude: cooperative Thought process: Normal thought process present Thought content: Normal thought content present Insight: Good insight present (Psych) Judgement: Good judgement present (Psych) Quality Reporting (2019) Adult ([facility] ) Smoking risk assessment performed?: Yes Patient Tobacco Use Status: Never used Tobacco Assessment & Plan Assessment & Plan (1) Asthma: Code(s): J45.909 - Unspecified asthma, uncomplicated Category: Medical Qualifiers: Asthma severity: moderate Asthma persistence: unspecified Asthma complication type: with acute exacerbation Qualified Code(s): J45.901 - Unspecified asthma with (acute) exacerbation (2) Environmental and seasonal allergies: Code(s): J30.89 - Other allergic rhinitis Category: Medical Plan Mellisa presents with an acute asthma exacerbation. DuoNeb given in office with moderate effect however continued with faint expiratory wheezes. Will send prednisone and send in nebulizer for home use. Advised to call office if symptoms do not improve and if worsen seek emergent care. All questions were answered and patient is in agreement of plan. Will follow up for regularly scheduled appointment or sooner if needed. Medications: New prednisone 40 mg (2 x 20 mg) PO DAILY 10 tabs 0RF Changed From albuterol sulfate 90 mcg/actuation (ProAir HFA) 2 puffs inhalation Q4-6H PRN 8.5 grams 0RF shortness of breath or wheezing J45.909 - Unspecified asthma, uncomplicated To albuterol sulfate 90 mcg/actuation 2 puffs inhalation Q4-6H PRN 8.5 grams 0RF shortness of breath or wheezing J45.909 - Unspecified asthma, uncomplicated Refilled albuterol sulfate 2.5 mg (3 mL) inhalation Q4-6H PRN 75 mL 0RF bronchospasm Coding Level of Care Code Est Pt Level 4 (03620) Diagnoses Moderate asthma with acute exacerbation, unspecified whether persistent J45.901 Asthma severity: moderate Asthma persistence: unspecified Asthma complication type: with acute exacerbation Environmental and seasonal allergies J30.89
[2024-03-01 10:17] VITALS: BP 102/58; PULSE 79; O2SAT 98; BMI 27.5
== END 2024-03-01 11:10 | disposition home or self-care (01) ==
PROVIDERS: PCP Internal Medicine; Visit Provider Nurse Practitioner Family
DX: J45.901 Unspecified asthma with (acute) exacerbation (principal); J30.89 Other allergic rhinitis
CPT/HCPCS: 99214

== ENCOUNTER → 2024-03-01 10:14 | Outpatient (BNVA) | payer OTHER, SELFPAY | PROVIDERS: PCP Internal Medicine; Visit Provider Nurse Practitioner Family | DX: J45.901 Unspecified asthma with (acute) exacerbation (principal); J30.89 Other allergic rhinitis | CPT/HCPCS: 99212 ==

== ENCOUNTER 2024-03-03 07:32 | Emergency (ER) | payer OTHER, SELFPAY ==
[2024-03-03 07:36] VITALS: BP 114/68; PULSE 89; RESP 18; TEMP 36.8; O2SAT 98; BMI 28.3
--- NOTE | 2024-03-03 07:47 | ECG_ITS ---
Test Reason : CP Blood Pressure : / mmHG Vent. Rate : 087 BPM Atrial Rate : 087 BPM P-R Int : 160 ms QRS Dur : 084 ms QT Int : 382 ms P-R-T Axes : 064 062 055 degrees QTc Int : 459 ms Normal sinus rhythm Normal ECG When compared with ECG of 15-JUL-2023 11:44, No significant change was found Referred By: Generic ED Physician Electronically Signed By:MERRILL KHOURY
--- NOTE | 2024-03-03 07:55 | ED.GENADULT ---
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 Reports dysuria x5 days, all other symptoms for the past 2 days. States that her grandchildren are sick with COVID. Recently saw gun number to prescribed prednisone, she has been using inhalers and nebulizer at home. Denies fevers. Denies abdominal pain, nausea, vomiting, diarrhea or constipation. MD complaint: dysuria, sore throat Onset (ago): day(s) Related Data Home Medications ?Medication ?Instructions ?Recorded ?Confirmed lorazepam 0.5 mg tablet 0.5 mg PO DAILY PRN Shortness Of 04/16/20 01/17/24 Breath Or Wheezing zolpidem 5 mg tablet 5 mg PO BEDTIME PRN 04/16/20 01/17/24 sertraline 100 mg tablet 100 mg PO DAILY PRN Anxiety 12/14/23 01/17/24 sertraline 50 mg tablet 50 mg PO DAILY PRN 12/14/23 01/17/24 Previous Rx's ?Medication ?Instructions ?Recorded fluticasone propionate 50 1 spray intranasal DAILY #100 mL 03/20/22 mcg/actuation nasal spray,suspension (Flonase Allergy Relief) lidocaine 5 % topical patch 1 patch topical DAILY #15 ea 05/30/22 heating pads #1 ea 05/31/22 docusate sodium 100 mg capsule 100 mg PO BEDTIME #90 caps 11/22/22 polyethylene glycol 3350 17 17 g PO DAILY 30 days #510 grams 11/22/22 gram/dose oral powder (Miralax) simethicone 125 mg capsule 125 mg PO BID-QID PRN abdominal 11/22/22 distention #120 caps nebulizer accessories #1 ea 11/30/22 blood sugar diagnostic (FreeStyle #150 ea 12/21/22 Lite Strips) blood-glucose meter (FreeStyle #1 ea 12/21/22 Lite Meter kit) lancets 28 gauge (FreeStyle #200 ea 12/21/22 Lancets) Ventolin HFA 90 mcg/actuation 2 puff inhalation Q6H PRN 02/21/23 aerosol inhaler (albuterol sulfate) shortness of breath or wheezing 30 days #8 grams nebulizers (AeroEclipse II #1 ea 03/30/23 Nebulizer) famotidine 20 mg tablet (Pepcid) 20 mg PO BEDTIME #90 tabs 06/23/23 linaclotide 290 mcg capsule 290 mcg PO QAM #30 caps 06/23/23 (Linzess) pantoprazole 40 mg tablet,delayed 40 mg PO DAILY #90 tabs 06/23/23 release incontinence pad, liner, disp #60 ea 10/07/23 toilet seat elevator #1 ea 10/23/23 lorazepam 1 mg tablet (Ativan) 1 mg PO ONCE PRN anxiety #2 tabs 11/01/23 solifenacin 5 mg tablet (Vesicare) 5 mg PO DAILY 30 days #30 tabs 12/12/23 miconazole nitrate 2 % vaginal 1 appful vaginal BEDTIME 7 days 12/18/23 cream #45 grams Lantus Solostar U-100 Insulin 100 42 unit (0.42 mL) subcut DAILY 90 12/25/23 unit/mL (3 mL) subcutaneous pen days #37.8 mL (insulin glargine) cholecalciferol (vitamin D3) 25 25 mcg PO DAILY 90 days #90 tabs 12/25/23 mcg (1,000 unit) tablet (Vitamin D3) cyanocobalamin (vitamin B-12) 500 500 mcg sublingual DAILY 90 days 12/25/23 mcg disintegrating #90 tabs tablet,sublingual insulin lispro 100 unit/mL 6 - 8 unit (0.06 - 0.08 mL) subcut 12/25/23 subcutaneous pen (Humalog KwikPen TID #15 mL (U-100) Insulin) pioglitazone 45 mg tablet 45 mg PO DAILY 90 days #90 tabs 12/25/23 canagliflozin 100 mg tablet 100 mg PO DAILY 30 days #30 tabs 01/01/24 montelukast 10 mg tablet 10 mg PO DAILY #90 tabs 01/08/24 atorvastatin 40 mg tablet 40 mg PO BEDTIME 90 days #90 tabs 01/09/24 silver sulfadiazine 1 % topical 1 appl topical DAILY 2 weeks #25 01/09/24 cream (Silvadene) grams blood-glucose meter,continuous #1 ea 01/10/24 (Dexcom G7 Archivist Economic History) blood-glucose sensor (Dexcom G7 #3 ea 01/10/24 Sensor device) lidocaine HCl 2 % mucosal solution 1 appl mucous membrane BID PRN 01/17/24 pain 30 days #100 mL Shower Chair #1 ea 02/05/24 fluticasone propionate 230 2 puff inhalation Q12H #12 grams 02/05/24 mcg-salmeterol 21 mcg/actuation HFA inhaler (Advair HFA) acetone (urine) test (Ketone Urine #50 ea 02/07/24 Test strips) glucagon 3 mg/actuation nasal 3 mg intranasal ONCE #2 ea 02/07/24 spray (Baqsimi) albuterol sulfate 2.5 mg/3 mL 2.5 mg (3 mL) inhalation Q4-6H PRN 03/01/24 (0.083 %) solution for nebulization bronchospasm #75 mL albuterol sulfate 90 mcg/actuation 2 puff inhalation Q4-6H PRN 03/01/24 aerosol inhaler shortness of breath or wheezing #8.5 grams prednisone 20 mg tablet 40 mg (2 x 20 mg) PO DAILY #10 tabs 03/01/24 nirmatrelvir 300 mg (150 mg See Rx Instructions PO .COMPLEX 03/03/24 x2)-ritonavir 100 mg tablet,dose #30 ea pack (Paxlovid) sulfamethoxazole 800 1 tab PO BID #10 tabs 03/03/24 mg-trimethoprim 160 mg tablet Allergies Allergy/AdvReac Type Severity Reaction Status Date / Time Penicillins Allergy Mild RASH/DYSPNE Verified 03/03/24 07:46 A metformin AdvReac Intermediate stomach Verified 03/03/24 07:46 upset Review of Systems Review of Systems: As per HPI. Yes all other systems are reviewed and are negative Constitutional: Constitutional: Reports as per HPI FORMERLY [facility], [facility] Past Medical History Medical History Ear discomfort Palpitations Overweight Type 2 diabetes mellitus with diabetic polyneuropathy B12 deficiency DM2 (diabetes mellitus, type 2) Tubular adenoma Moderate recurrent major depression Dyslipidemia Umbilical hernia Edema Arthritis Ear pain group home (current) use of insulin Pernicious anemia Hearing loss Insomnia Depression with anxiety Moderate asthma Essential hypertension Polyarthralgia GERD (gastroesophageal reflux disease) Diabetes Hearing loss Surgical History History of cholecystectomy History of umbilical hernia repair History of foot surgery History of carpal tunnel release History of surgery on arm History of endometrial ablation History of tubal ligation Family History Family History Mother Breast cancer Paternal Grandmother Breast cancer Brother Colon cancer Family/Other FH: mental illness Mental health disorder Father CAD (coronary artery disease) Social History Social History Household Members: Children Housing: Apartment Are you a primary complex care nurse to a significant other at home: No Do you presently have visiting nurse or other home services: Yes ([employer]) Alcohol intake: never Patient Tobacco Use Status: Never used Tobacco e-Cigarette/Vaping Use: Never Used Second Hand Smoke Exposure: No Advance Directives: Yes Advance Directives Information Provided: Yes Advance Directives on File: No service: No Current occupational status: disabled Current occupation: Right hand dominate Cognitive needs: No Hearing needs: No Vision needs: Yes Physical Exam ED Vital Signs: Vital Signs - 24 hr 03/03/24 07:36 Temperature 98.3 F Pulse Rate 89 Respiratory Rate 18 Blood Pressure 114/68 Pulse Oximetry 98 Oxygen Delivery Method Room Air BMI result Body Mass Index 28.3 Vital signs have been reviewed and appear to be correct. Blood pressure normal. Heart rate normal. Respiratory rate normal. Temperature normal. Oxygen saturation normal. Const General: cooperative, healthy appearing and no acute distress Orientation/consciousness: oriented to person, oriented to place, oriented to time and patient oriented x3 Limitations: no limitations HENMT Head: Yes normocephalic and Yes atraumatic Ears: external ears normal, TM's normal bilaterally and EAC's normal General nose exam: Normal external nose present Face and sinus: Yes face symmetric Mouth: oropharynx normal and moist mucous membranes Throat: Yes tonsils normal, Yes uvula midline, No peritonsillar mass, Yes posterior oropharynx abnormal (erythema) and No uvular edema Eyes Pupils: Equal, round and reactive pupils present Neck Neck: Yes normal visual inspection, Yes no lymphadenopathy and Yes supple Resp Effort & Inspection: normal respiratory effort and able to speak in complete sentences Auscultation: clear to auscultation bilaterally and no wheezes Cardio Rate: regular rate Rhythm: regular rhythm Heart sounds: S1 normal heart sound present and S2 normal heart sound present GI Palpation (GI): Soft to palpation and nontender Auscultation: normoactive bowel sounds General: Yes no CVA tenderness Back/Spine/Pelvis Back: no CVA tenderness Skin General skin exam: elasticity normal and turgor normal Neuro General: oriented to person, oriented to place, oriented to time, patient oriented x3, moves all extremities, no focal motor deficits and CN's II-XI intact bilaterally Cranial nerves: Yes Equal, round and reactive pupils present Cognition (Neuro): normal cognition Extrem General: Yes full ROM, Yes no pedal edema and Yes no calf tenderness Psych Mental Status: mental status grossly normal Affect: normal affect Thought process: Normal thought process present Medical Decision Making Medical Decision Making MDM Narrative: Patient Is a 58-year-old female with history of frequent UTIs, post COVID syndrome, asthma, T2 DM, HTN presenting to the emergency department with complaint of sore throat, bilateral ear pain, body aches, chest pain with coughing as well as dysuria. On exam patient is awake, A+Ox3, VS WNL, afebrile, normal neurological exam without focal deficits, physical exam findings as above. Given reported symptoms and physical exam findings, initial differential includes viral illness, flu, Covid, UTI. Labs unremarkable. Viral serology positive for COVID. Urinalysis notable for +leukocytes, positive nitrates, greater than 50 wbc's, 4+ bacteria. Will treat patient for UTI with Bactrim as she has penicillin allergy, has also had urine cultures positive for Klebsiella in the past susceptible to Bactrim. Will also treat with Paxlovid given history of asthma. Instructed patient follow-up with PCP in gun number. Return precautions discussed. Patient verbalized understanding of and agreement with plan. Assessment, results, return precautions and plan discussed using in-person remittance clerk at bedside. Differential Diagnosis Differential Diagnoses: The differential diagnosis associated with the presentation includes As per MDM. Lab Data [facility] Lab Attestation statement: I reviewed the patient's lab results. As per [facility]. Labs: Lab Results 03/03/24 Range/Units 07:59 Urine Color Yellow Urine Appearance Clear Urine pH 5.5 (5.0-9.0) Ur Specific [place] >= 1.030 H (1.005-1.025) Urine Protein Trace (Neg-Trace) mg/dL Urine Glucose (UA) >=1000 H (Negative) mg/dL Urine Ketones Negative (Negative) mg/dL Urine Blood Small (1+) H (Negative) Urine Nitrite Positive H (Negative) Ur Leukocyte Esterase Small (1+) H (Negative) Urine RBC 6-10 H (0-2) /HPF Urine WBC >50 H (0-5) /HPF Ur Squamous Epith Cells 3-5 (0-2) /HPF Urine Bacteria 4+ (None Seen) Hyaline Casts 0-2 (0-2) /LPF Influenza Type A (PCR) NEGATIVE (Negative) Influenza Type B (PCR) NEGATIVE (Negative) RSV RNA Qual (PCR) NEGATIVE (Negative) SARS-CoV-2 RNA (RT-PCR) POSITIVE A (Negative) External Record Review External record reviewed: Inpatient record, Office record and Outpatient record Prescription Management I considered prescription management with: Antiviral and Antibiotic Discharge Plan Discharge Clinical Impression: UTI (urinary tract infection), COVID-19 Patient Disposition: Home, Self-Care Instructions: Urinary Tract Infection in Women (DC), COVID-19 (Coronavirus Disease 2019) (ED) Additional Instructions: You have been evaluated in the emergency department today for your urinary symptoms. Your evaluation, including urinalysis, suggests that your symptoms are due to urinary tract infection. Please take your prescribed antibiotics for the full course of medication as directed. You also tested positive for COVID-19 under being treated with antiviral medication, complete the full course as prescribed. Follow-up with your gun number as needed. Please follow-up with your primary care provider as well. Return to the emergency department if you experience fevers 100.4? F or greater, difficulty breathing or chest pain, worsening or uncontrolled pain, vomiting, flank pain, or for any other concerning symptoms. Prescriptions: New Paxlovid 300 mg (150 mg x 2)-100 mg tablets,dose pack See Rx Instructions .ROUTE .COMPLEX Qty: 30 0RF Rx Instructions: take TWO 150 mg tablets of nirmatrelvir with ONE 100 mg tablet of ritonavir twice daily for 5 days sulfamethoxazole-trimethoprim 800-160 mg tablet 1 tab PO BID Qty: 10 0RF No Action fluticasone propionate [Flonase Allergy Relief] 50 mcg/actuation spray,suspension 1 spray intranasal DAILY Qty: 100 0RF Rx Instructions: administer into each nostril (DME) heating pads Pad See Rx Instructions .Route Qty: 1 0RF Rx Instructions: As directed (DME) FreeStyle Lite Strips Strip See Rx Instructions .ROUTE .MEDSUPPLY Qty: 150 11RF Rx Instructions: As directed four times a day (DME) blood-glucose meter [FreeStyle Lite Meter] Kit See Rx Instructions .ROUTE .MEDSUPPLY Qty: 1 0RF Rx Instructions: use as directed to test blood sugar 4x per day (DME) lancets [FreeStyle Lancets] 28 gauge misc See Rx Instructions .ROUTE .MEDSUPPLY Qty: 200 11RF Rx Instructions: 4 times a day albuterol sulfate [Ventolin HFA] 90 mcg/actuation HFA aerosol inhaler 2 puff inhalation Q6H PRN (Reason: shortness of breath or wheezing) 30 Days Qty: 8 1RF (DME) nebulizers [AeroEclipse II Nebulizer] Misc See Rx Instructions .Route Qty: 1 0RF Rx Instructions: As directed (DME) incontinence pad, liner, disp Pad See Rx Instructions .Route Qty: 60 11RF Rx Instructions: Use 1 pad twice a day cholecalciferol (vitamin D3) [Vitamin D3] 25 mcg (1,000 unit) tablet 25 mcg PO DAILY 90 Days Qty: 90 3RF cyanocobalamin (vitamin B-12) 500 mcg tablet,disintegrating 500 mcg sublingual DAILY 90 Days Qty: 90 1RF insulin lispro [Humalog KwikPen Insulin] 100 unit/mL insulin pen 6 - 8 unit subcut TID Qty: 15 2RF insulin glargine [Lantus Solostar U-100 Insulin] 100 unit/mL (3 mL) insulin pen 42 unit subcut DAILY 90 Days Qty: 37.8 1RF pioglitazone 45 mg tablet 45 mg PO DAILY 90 Days Qty: 90 2RF canagliflozin 100 mg tablet 100 mg PO DAILY 30 Days Qty: 30 6RF montelukast 10 mg tablet 10 mg PO DAILY Qty: 90 3RF (DME) Dexcom G7 Sensor Device See Rx Instructions .Route Qty: 3 5RF Rx Instructions: As directed change every 10 days (DME) Dexcom G7 Archivist Economic History Misc See Rx Instructions .Route Qty: 1 0RF Rx Instructions: As directed (DME) Shower Chair Misc See Rx Instructions .Route Qty: 1 0RF Rx Instructions: As directed (DME) Ketone Urine Test Strip See Rx Instructions .Route Qty: 50 5RF Rx Instructions: As directed Baqsimi 3 mg/actuation spray,non-aerosol 3 mg intranasal ONCE Qty: 2 4RF lidocaine 5 % adhesive patch,medicated 1 patch topical DAILY Qty: 15 0RF Rx Instructions: leave on most painful area for up to 12 hrs zolpidem 5 mg tablet 5 mg PO BEDTIME PRN lorazepam 0.5 mg tablet 0.5 mg PO DAILY PRN (Reason: Shortness Of Breath Or Wheezing) sertraline 100 mg tablet 100 mg PO DAILY PRN (Reason: Anxiety) (DME) toilet seat elevator See Rx Instructions .Route .MEDSUPPLY Qty: 1 0RF Rx Instructions: As directed (DME) nebulizer accessories Mis See Rx Instructions .Route Qty: 1 0RF Rx Instructions: NEBULIZER FACE MASK ADULT, USE DIRECTED silver sulfadiazine [Silvadene] 1 % cream 1 appl topical DAILY 14 Days Qty: 25 0RF Rx Instructions: apply a 1.5 mm thickness atorvastatin 40 mg tablet 40 mg PO BEDTIME 90 Days Qty: 90 0RF miconazole nitrate 2 % cream 1 appful vaginal BEDTIME 7 Days Qty: 45 0RF lidocaine HCl 2 % solution 1 appl mucous membrane BID PRN (Reason: pain) 30 Days Qty: 100 0RF docusate sodium 100 mg capsule 100 mg PO BEDTIME Qty: 90 3RF polyethylene glycol 3350 [Miralax] 17 gram/dose powder 17 g PO DAILY 30 Days Qty: 510 3RF simethicone 125 mg capsule 125 mg PO BID-QID PRN (Reason: abdominal distention) Qty: 120 3RF fluticasone propion-salmeterol [Advair HFA] 230-21 mcg/actuation HFA aerosol inhaler 2 puff inhalation Q12H Qty: 12 3RF prednisone 20 mg tablet 40 mg PO DAILY Qty: 10 0RF albuterol sulfate 2.5 mg /3 mL (0.083 %) solution for nebulization 2.5 mg inhalation Q4-6H PRN (Reason: bronchospasm) Qty: 75 0RF albuterol sulfate 90 mcg/actuation HFA aerosol inhaler 2 puff inhalation Q4-6H PRN (Reason: shortness of breath or wheezing) Qty: 8.5 0RF sertraline 50 mg tablet 50 mg PO DAILY PRN Linzess 290 mcg capsule 290 mcg PO QAM Qty: 30 4RF pantoprazole 40 mg tablet,delayed release (DR/EC) 40 mg PO DAILY Qty: 90 2RF Rx Instructions: take one tablet half an hour before breakfast famotidine [Pepcid] 20 mg tablet 20 mg PO BEDTIME Qty: 90 3RF lorazepam [Ativan] 1 mg tablet 1 mg PO ONCE PRN (Reason: anxiety) Qty: 2 0RF Rx Instructions: Take one tab 2 hours before your right shoulder MRI; take the second tab 30 minutes before your MRI. solifenacin [Vesicare] 5 mg tablet 5 mg PO DAILY 30 Days Qty: 30 3RF Print Language: [place]
[2024-03-03 08:07] LABS: Appearance Urine Clear; Color Urine Yellow; Glucose Urine UA >=1000 mg/dL (Negative); Leukocyte Esterase Urine Small (1+) (Negative); Nitrite Urine Positive (Negative); PH 5.5 (5.0-9.0); Specific Gravity - Urine >= 1.030 (1.005-1.025); UMIC TRIGGER UACC YES; Urine Blood Small (1+) (Negative); Urine Ketones Negative (Negative); Urine Protein Trace mg/dL (Neg-Trace)
[2024-03-03 08:12] LABS: Bacteria Urine 4+ (None Seen); Hyaline Casts Urine 0-2 /LPF (0-2); UACC Culture Trigger YES; WBC Urine >50 /HPF (0-5)
[2024-03-03 08:43] LABS: Influenza A PCR NEGATIVE (Negative); Influenza B PCR NEGATIVE (Negative); Resp Syncy Virus RNA Qual PCR NEGATIVE (Negative); SARS COV2 PCR INHOUSE POSITIVE (Negative)
[2024-03-03 09:22] VITALS: BP 114/68; PULSE 89; RESP 18; TEMP 36.8; O2SAT 98
== END 2024-03-03 09:23 | disposition home or self-care (01) ==
PROVIDERS: Emergency Provider Emergency Medicine; PCP Internal Medicine
DX: U07.1 COVID-19 (principal); N39.0 Urinary tract infection, site not specified; J02.9 Acute pharyngitis, unspecified; R07.89 Other chest pain; R06.02 Shortness of breath; R51.9 Headache, unspecified; R30.0 Dysuria; R05.9 Cough, unspecified; E11.9 Type 2 diabetes mellitus without complications; Z79.4 Long term (current) use of insulin; Z87.440 Personal history of urinary (tract) infections; Z79.899 Other long term (current) drug therapy
CPT/HCPCS: 0241U; 81001; 87086; 87088; 87186; 93005; 99283

== ENCOUNTER 2024-03-06 10:56 | Outpatient (AMB) | payer OTHER, SELFPAY ==
[2024-03-06 10:58] VITALS: BP 110/50; PULSE 86; O2SAT 98; BMI 29.3
--- NOTE | 2024-03-06 10:58 | MHC.PC.OV ---
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 Accompanied by: Self / Same As Patient Allergies Penicillins Allergy (Mild, Verified 03/06/24 11:10) RASH/DYSPNEA metformin Adverse Reaction (Intermediate, Verified 03/06/24 11:10) stomach upset Medication List - Last Reconciled 03/06/24 by Norma Bland MD acetone (urine) test (Ketone Urine Test strips) As directed albuterol sulfate 90 mcg/actuation 2 puffs inhalation Q4-6H PRN albuterol sulfate 2.5 mg (3 mL) inhalation Q4-6H PRN atorvastatin 40 mg PO BEDTIME 90 days blood sugar diagnostic (FreeStyle Lite Strips) As directed four times a day blood-glucose meter (FreeStyle Lite Meter kit) use as directed to test blood sugar 4x per day blood-glucose meter,continuous (DexThubrikar Aortic Valve G7 Military Technology Specialist) As directed blood-glucose sensor (Dexcom G7 Sensor device) As directed change every 10 days canagliflozin 100 mg PO DAILY 30 days cholecalciferol (vitamin D3) (Vitamin D3) 25 mcg PO DAILY 90 days cyanocobalamin (vitamin B-12) 500 mcg sublingual DAILY 90 days docusate sodium 100 mg PO BEDTIME famotidine (Pepcid) 20 mg PO BEDTIME fluticasone propion-salmeterol 230-21 mcg/actuation (Advair HFA) 2 puffs inhalation Q12H fluticasone propionate 50 mcg/actuation (Flonase Allergy Relief) 1 spray intranasal DAILY glucagon 3 mg/actuation (Baqsimi) 3 mg intranasal ONCE heating pads As directed incontinence pad, liner, disp Use 1 pad twice a day insulin lispro (Humalog KwikPen (U-100) Insulin) 6 - 8 units (0.06 - 0.08 mL) subcut TID lancets (FreeStyle Lancets) 4 times a day Lantus Solostar U-100 Insulin (insulin glargine) 42 units (0.42 mL) subcut DAILY 90 days NS lidocaine 5% 1 patch topical DAILY lidocaine HCl 2% 1 appl mucous membrane BID PRN 30 days linaclotide (Linzess) 290 mcg PO QAM lorazepam 0.5 mg PO DAILY PRN lorazepam (Ativan) 1 mg PO ONCE PRN miconazole nitrate 2% 1 appful vaginal BEDTIME 7 days montelukast 10 mg PO DAILY nebulizer accessories NEBULIZER FACE MASK ADULT, USE DIRECTED nebulizers ([employer] II Nebulizer) As directed nirmatrelvir-ritonavir 300 mg (150 mg x 2)-100 mg (Paxlovid) take TWO 150 mg tablets of nirmatrelvir with ONE 100 mg tablet of ritonavir twice daily for 5 days pantoprazole 40 mg PO DAILY pioglitazone 45 mg PO DAILY 90 days polyethylene glycol 3350 (Miralax) 17 grams PO DAILY 30 days prednisone 40 mg (2 x 20 mg) PO DAILY sertraline 50 mg PO DAILY PRN sertraline 100 mg PO DAILY PRN Shower Chair As directed silver sulfadiazine 1% (Silvadene) 1 appl topical DAILY 2 weeks simethicone 125 mg PO BID-QID PRN solifenacin (Vesicare) 5 mg PO DAILY 30 days sulfamethoxazole-trimethoprim 800-160 mg 1 tab PO BID [toilet seat elevator As directed] Ventolin HFA 90 mcg/actuation (albuterol sulfate) 2 puffs inhalation Q6H PRN 30 days NS zolpidem 5 mg PO BEDTIME PRN Tobacco use date assessed: 10/23/23 Dental Screening Dental Screen Date: 10/23/23 HPI HPI Comments History of Present Illness Details This is a 58-year-old female with diabetes mellitus type 2 on long-term current use of insulin, hypertension, moderate recurrent major depression and hyperlipidemia that comes today complaining of diffuse joint pain with some shortness of breath and wheezing that started 6 days ago. She did a test at home 4 days ago which was positive for COVID-19. Went to urgent care the day before which was also positive for COVID-19. Currently on Paxlovid. Feels somewhat improved. Also saw maintenance plumber which put her on prednisone. A1c within goal. Blood pressure stable. Depression well controlled. Lipid panel will be order and her LDL goal should be less than 70. She is compliant with medications. 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 Pernicious anemia Hearing loss Insomnia Depression with anxiety Moderate asthma Essential hypertension Polyarthralgia GERD (gastroesophageal reflux disease) Diabetes Hearing loss Surgical History History of cholecystectomy History of umbilical hernia repair History of foot surgery History of carpal tunnel release History of surgery on arm History of endometrial ablation History of tubal ligation Family History Mother Breast cancer Paternal Grandmother Breast cancer Brother Colon cancer Family/Other FH: mental illness Mental health disorder Father CAD (coronary artery disease) Social History Household Members: Children Housing: Apartment Are you a primary acute care assistant to a significant other at home: No 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 Hernandez Love, Rebecca Peacock, Kalyan Becker and colleagues, with an educational julio from [employer]. Review of Systems Const All systems reviewed & are unremarkable except as noted in HPI and below Card Denies chest pain at rest, Denies chest pain with activity, Denies edema, Denies irregular heart rhythm, Denies claudication, Denies dyspnea, Denies dyspnea on exertion, Denies orthopnea, Denies paroxysmal nocturnal dyspnea and Denies slow heart rate Resp Denies cough, Denies dyspnea and Denies dyspnea on exertion GI Denies abdominal pain, Denies change in bowel habits, Denies excessive flatus, Denies nausea and Denies vomiting Physical exam (Primary Care) Vital Signs: Last Vital Signs Pulse 86 03/06/24 10:58 BP 110/50 L 03/06/24 10:58 Pulse Ox 98 03/06/24 10:58 Oxygen Delivery Method Room Air 03/06/24 10:58 BMI result Body Mass Index 29.3 Tobacco/Smoking Status: Tobacco use Status Tobacco use date assessed 10/23/23 03/06/24 11:00 Patient Tobacco Use Status Never used Tobacco 03/06/24 11:00 e-Cigarette/Vaping Use Never Used 03/06/24 11:00 Thrive Assessment: Date of Thrive Assessment Date Thrive assessed 10/23/23 03/06/24 11:00 Resp Effort & Inspection: normal respiratory effort Auscultation: clear to auscultation bilaterally Cardio Jugular venous distension: no JVD Rate: regular rate Rhythm: regular rhythm Heart sounds: S1 normal heart sound present and S2 normal heart sound present Extrem General: Yes full ROM Results AMB Hemoglobin A1c AMB Hemoglobin A1c 6.8 % Last Edit by WILBERT Renee on 03/06/24 11:16 Results Reviewed Results Reviewed: Laboratory Last Values Hgb A1c (Clinic) 6.8 % (4.0-6.0) H 03/06/24 11:15 Assessment and Plan Assessment & Plan (1) COVID-19: Code(s): U07.1 - COVID-19 Plan: Complete Paxlovid. (2) Type 2 diabetes mellitus with diabetic polyneuropathy: Code(s): E11.42 - Type 2 diabetes mellitus with diabetic polyneuropathy Qualifiers: Diabetes mellitus senior care insulin use: with senior care use Qualified Code(s): E11.42 - Type 2 diabetes mellitus with diabetic polyneuropathy; Z79.4 - long term care social worker (current) use of insulin Plan: Continue insulin. Continue Invokana. A1c goal is equal or less than 7%. (3) Moderate recurrent major depression: Code(s): F33.1 - Major depressive disorder, recurrent, moderate Plan: Continue SSRIs. (4) Hyperlipidemia LDL goal <70: Code(s): E78.5 - Hyperlipidemia, unspecified Plan: Continue statins. LDL goal is less than 70. Orders: Orders AMB Hemoglobin A1c Today E11.42 - Type 2 diabetes mellitus with diabetic polyneuropathy Lipid Panel Today E78.5 - Hyperlipidemia, unspecified IRON PROFILE Today D64.9 - Anemia, unspecified Vitamin B12 and Folate Today E53.8 - Deficiency of other specified B group vitamins Comprehensive [place]. Panel Fast Today E78.5 - Hyperlipidemia, unspecified Complete Blood Count Auto Diff Today D64.9 - Anemia, unspecified Microalbumin, Random (w Creat) Today E11.9 - Type 2 diabetes mellitus without complications Vitamin D 25-OH Total Today E55.9 - Vitamin D deficiency, unspecified Coding Level of Care Code Est Pt Level 4 (60321) Complex EM visit Add On G2211 Diagnoses COVID-19 U07.1 Type 2 diabetes mellitus with diabetic polyneuropathy, with long-term current use of insulin E11.42; Z79.4 Diabetes mellitus long term care social worker insulin use: with senior care use Moderate recurrent major depression F33.1 Hyperlipidemia LDL goal <70 E78.5 Time Spent (min) 24
== END 2024-03-06 11:25 | disposition home or self-care (01) ==
PROVIDERS: PCP Internal Medicine; Visit Provider Internal Medicine
DX: U07.1 COVID-19 (principal); E11.42 Type 2 diabetes mellitus with diabetic polyneuropathy; Z79.4 Long term (current) use of insulin; F33.1 Major depressive disorder, recurrent, moderate; E78.5 Hyperlipidemia, unspecified
CPT/HCPCS: 83036; 99214; G2211

== ENCOUNTER 2024-03-08 10:35 | Outpatient (AMB) | payer OTHER, SELFPAY ==
--- NOTE | 2024-03-08 10:36 | A.OFFVIS_ITS ---
Intake Visit Reasons: 3m/US(set) Intake Note: Patient presents today for follow up visit on: Incontinence, frequency, and ultrasound results Imaging Completed: 12/19/23 and 12/20/23 Urology Medications: Vesicare Allergies to Antibiotic: PCN Blood Thinner: none PVR:0ml's Settlement Technician Required: Yes Settlement Technician Services: Settlement Technician Present Settlement Technician Name: SHERIDAN FRY Accompanied by: Self / Same As Patient Allergies Penicillins Allergy (Mild, Verified 03/08/24 11:08) RASH/DYSPNEA metformin Adverse Reaction (Intermediate, Verified 03/08/24 11:08) stomach upset Medication List - Last Reconciled 03/08/24 by SHAINA Messina acetone (urine) test (Ketone Urine Test strips) As directed albuterol sulfate 90 mcg/actuation 2 puffs inhalation Q4-6H PRN albuterol sulfate 2.5 mg (3 mL) inhalation Q4-6H PRN atorvastatin 40 mg PO BEDTIME 90 days blood sugar diagnostic (FreeStyle Lite Strips) As directed four times a day blood-glucose meter (FreeStyle Lite Meter kit) use as directed to test blood sugar 4x per day blood-glucose meter,continuous (Dexcom G7 Healthcare Market Consultant) As directed blood-glucose sensor (Dexcom G7 Sensor device) As directed change every 10 days canagliflozin 100 mg PO DAILY 30 days cholecalciferol (vitamin D3) (Vitamin D3) 25 mcg PO DAILY 90 days cyanocobalamin (vitamin B-12) 500 mcg sublingual DAILY 90 days docusate sodium 100 mg PO BEDTIME famotidine (Pepcid) 20 mg PO BEDTIME fluticasone propion-salmeterol 230-21 mcg/actuation (Advair HFA) 2 puffs inhalation Q12H fluticasone propionate 50 mcg/actuation (Flonase Allergy Relief) 1 spray intranasal DAILY glucagon 3 mg/actuation (Baqsimi) 3 mg intranasal ONCE heating pads As directed incontinence pad, liner, disp Use 1 pad twice a day insulin lispro (Humalog KwikPen (U-100) Insulin) 6 - 8 units (0.06 - 0.08 mL) subcut TID lancets (FreeStyle Lancets) 4 times a day Lantus Solostar U-100 Insulin (insulin glargine) 42 units (0.42 mL) subcut DAILY 90 days NS lidocaine 5% 1 patch topical DAILY lidocaine HCl 2% 1 appl mucous membrane BID PRN 30 days linaclotide (Linzess) 290 mcg PO QAM lorazepam 0.5 mg PO DAILY PRN lorazepam (Ativan) 1 mg PO ONCE PRN miconazole nitrate 2% 1 appful vaginal BEDTIME 7 days montelukast 10 mg PO DAILY nebulizer accessories NEBULIZER FACE MASK ADULT, USE DIRECTED nebulizers ([employer]e II Nebulizer) As directed nirmatrelvir-ritonavir 300 mg (150 mg x 2)-100 mg (Paxlovid) take TWO 150 mg tablets of nirmatrelvir with ONE 100 mg tablet of ritonavir twice daily for 5 days pantoprazole 40 mg PO DAILY pioglitazone 45 mg PO DAILY 90 days polyethylene glycol 3350 (Miralax) 17 grams PO DAILY 30 days prednisone 40 mg (2 x 20 mg) PO DAILY prednisone 40 mg (2 x 20 mg) PO DAILY sertraline 50 mg PO DAILY PRN sertraline 100 mg PO DAILY PRN Shower Chair As directed silver sulfadiazine 1% (Silvadene) 1 appl topical DAILY 2 weeks simethicone 125 mg PO BID-QID PRN solifenacin (Vesicare) 5 mg PO DAILY 30 days sulfamethoxazole-trimethoprim 800-160 mg 1 tab PO BID tirzepatide (Mounjaro) mg subcut [toilet seat elevator As directed] Ventolin HFA 90 mcg/actuation (albuterol sulfate) 2 puffs inhalation Q6H PRN 30 days NS zolpidem 5 mg PO BEDTIME PRN HPI Comments Details: Mellisa is a pleasant 58-year-old Kinyarwanda-speaking female patient of Dr. Dorman. She has a past medical history of palpitations, type 2 diabetes, polyneuropathy, vitamin-B 12 deficiency, depression, dyslipidemia, umbilical hernia, arthritis, hearing loss, insomnia, anxiety, asthma, hypertension, polyarthralgia, and GERD. She presents to the office today for follow-up. Of note, patient was seen appr oximately 3 months ago as a new patient for stress incontinence at which time a retroperitoneal ultrasound was ordered for further assessment evaluation and the patient was started on VESIcare. In discussion with the patient today she reports noting improvement in stress incontinence since starting VESIcare however discusses having had COVID and lower urinary tract symptoms approximately 1-2 weeks ago. In review of patient's chart it appears urine culture noted 03/26 Klebsiella pneumoniae she discusses having completed Bactrim as prescribed. In office urinalysis results reviewed with the patient today. PVR 0 mL. Recent retroperitoneal ultrasound results reviewed with the patient today 12/24 bilateral kidneys no calculi, lesions, and or hydronephrosis. The bladder is partially distended. Bladder jets are demonstrated. Pre void bladder volume is approximately 250 mL. Postvoid bladder volume is approximately 50 mL. Discussed further treatment options for stress incontinence. Discussed pelvic floor therapy. She currently denies any UTI like symptoms. She denies hematuria, dysuria, foul smelling urine, changes to urinary stream, flank pain, fever, and or chills. She otherwise offers no other issues or concerns at this time. 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 Pernicious anemia Hearing loss Insomnia Depression with anxiety Moderate asthma Essential hypertension Polyarthralgia GERD (gastroesophageal reflux disease) Diabetes Hearing loss Surgical History History of cholecystectomy History of umbilical hernia repair History of foot surgery History of carpal tunnel release History of surgery on arm History of endometrial ablation History of tubal ligation Family History Mother Breast cancer Paternal Grandmother Breast cancer Brother Colon cancer Family/Other FH: mental illness Mental health disorder Father CAD (coronary artery disease) Social History Household Members: Children Housing: Apartment Are you a primary careers adviser to a significant other at home: No 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) Alcohol intake: never Patient Tobacco Use Status: Never used Tobacco e-Cigarette/Vaping Use: Never Used Second Hand Smoke Exposure: No service: No Current occupational status: disabled Current occupation: Right hand dominate Cognitive needs: No Hearing needs: No Vision needs: Yes Female Reproductive History Menstrual Age of Menarche: 11 Review of Systems Const Reports no additional complaints Eyes Reports no additional complaints ENT Reports no additional complaints Card Reports as per [facility] Resp Reports as per [facility] GI Reports as per [facility] Reports as per HPI Musc Reports as per HPI Neuro Reports as per HPI Psych Reports as per HPI Endo Reports as per [facility] Kranthi/Lymph Reports as per HPI Aller/Immun Reports as per HPI Physical Exam Const General: cooperative, healthy appearing, comfortable, no acute distress, well developed, alert and awake Orientation/consciousness: patient oriented x3 Limitations: no limitations HEENT Head: Yes normal to inspection, Yes normocephalic and Yes atraumatic Ears: hearing grossly normal bilaterally Eyes General: appearance normal, both eyes and all related structures Neck Neck: Yes normal visual inspection and Yes trachea midline Chest Chest palpation & inspection: normal inspection of the chest Resp Effort & Inspection: normal respiratory effort and able to speak in complete sentences Cardio Rate: regular rate GI Inspection: Yes normal to inspection General: Yes no CVA tenderness Back/Spine/Pelvis Back: no CVA tenderness Skin General skin exam: no rashes or lesions noted Neuro General: patient oriented x3 Extrem General: Yes normal to inspection Psych Appearance: grossly normal and well kempt Mental Status: mental status grossly normal Speech and movement: Normal speech and movement present and Clear speech present Affect: normal affect Attitude: cooperative Thought process: Normal thought process present Thought content: Normal thought content present Insight: Fair insight present (Psych) Judgement: Fair judgement present (Psych) Office Procedures Post Void Residual Post Residual Void Post Void Residual (PVR): 0 [id number] Void Residual by ultrasound Results AMB Urinalysis, Automated UA Leukoctes 0 Sharla/uL Last Edit by MaxxWidespacemarilin Mcdonald on 03/08/24 10:56 UA Nitrite Negative Last Edit by CymaBay Therapeuticsmarilin Mcdonald on 03/08/24 10:56 UA Urobilinogen 0.2 mg/dL Last Edit by CymaBay Therapeuticsmarilin Mcdonald on 03/08/24 10:56 UA Protein 0 mg/dL Last Edit by CymaBay Therapeuticsmarilin Mcdonald on 03/08/24 10:56 UA pH 6.0 Last Edit by CymaBay Therapeuticsmarilin Mcdonald on 03/08/24 10:56 UA Blood 0 Heladio/uL Last Edit by CymaBay Therapeuticsmarilin Mcdonald on 03/08/24 10:56 UA Specific [place] 1.010 Last Edit by Veronica Mcdonald on 03/08/24 10:56 UA Ketone Negative Last Edit by Veronica Mcdonald on 03/08/24 10:56 UA Bilirubin 0 mg/dL Last Edit by Veronica Mcdonald on 03/08/24 10:56 UA Glucose 0 mg/dL Last Edit by Veronica Mcdonald on 03/08/24 10:56 Quality Reporting (2019) Adult ([facility] 138/08/24/68) Smoking risk assessment performed?: Yes Patient Tobacco Use Status: Never used Tobacco Results Reviewed Results Reviewed: Laboratory Last Values Urine pH (Auto) 6.0 03/08/24 10:45 Specific [place] (Auto) 1.010 03/08/24 10:45 Urine Protein (Auto) 0 mg/dL 03/08/24 10:45 Glucose (UA)(Auto) 0 mg/dL 03/08/24 10:45 Urine Ketones (Auto) Negative 03/08/24 10:45 Urine Blood (Auto) 0 Heladio/uL 03/08/24 10:45 Urine Nitrite (Auto) Negative 03/08/24 10:45 Urine Bilirubin (Auto) 0 mg/dL 03/08/24 10:45 Urine Urobilinogen (Auto) 0.2 mg/dL 03/08/24 10:45 Leukocyte Esterase (Auto) 0 Sharla/uL 03/08/24 10:45 Date of Service: 12/19/23 EXAMINATION: US RETROPERITONEAL LIMITED (RENAL ONLY) FINDINGS: RIGHT KIDNEY: 11.3 x 4.1 x 5.1 cm (SAG x AP x TRV). The kidney is normal in size, contour, and echogenicity. Renal cortical thickness is normal. No calculi or focal parenchymal lesions. No hydronephrosis. LEFT KIDNEY: 11.2 x 5.0 x 4.9 cm (SAG x AP x TRV). The kidney is normal in size, contour, and echogenicity. Renal cortical thickness is normal. No calculi or focal parenchymal lesions. No hydronephrosis. Date of Service: 12/20/23 EXAMINATION: US PELVIS LIMITED (BLADDER) FINDINGS: BLADDER: Partially distended. Bilateral ureteral jets are demonstrated. Prevoid bladder volume is 244 mL. Postvoid bladder volume is 48.3 mL. IMPRESSION: Postvoid bladder volume 48.3 mL. Assessment & Plan Assessment & Plan (1) Stress incontinence: Code(s): N39.3 - Stress incontinence (female) (male) Category: Medical (2) Urinary frequency: Code(s): R35.0 - Frequency of micturition Category: Medical (3) Urinary tract infection: Code(s): N39.0 - Urinary tract infection, site not specified Category: Medical Plan In office urinalysis results reviewed with the patient today; as noted above. PVR 0 mL. Recent retroperitoneal ultrasound results reviewed with the patient today; as noted above. Discussed possible near future Estrace cream if UTIs continue. Continue VESIcare. Discussed, stress, and educated on the importance of managing diabetes for improvement in lower urinary tract symptoms as well as overall health and well- being. Continue pelvic floor exercises as discussed Discussed UTI prevention with D mannose supplement, vitamin-C, increasing fluid intake, behavioral therapy with timed voiding, perineal hygiene and postcoital voiding, and management of constipation with stool softeners and increased fiber intake. Follow-up 3 months with PVR; or sooner with any issues, concerns, and or questions. Orders: Orders AMB Post Void Residual by ultrasound Today N39.3 - Stress incontinence (female) (male) AMB Urinalysis Automated Today Z13.9 - Encounter for screening, unspecified Patient Instructions: The patient had an opportunity to ask questions regarding the treatment plan. All questions were answered. Physical exam, labs, and imaging were discussed and reviewed in detail. As well as risks, benefits, and discussion of treatment choices. No major barriers to understanding were identified. The patient expressed understanding and agreement with the above treatment plan. The patient was made aware they should contact our office by phone for worsening of their current condition, the appearance of new symptoms, or with any questions or concerns. Compliance is encouraged with any medications and follow up testing that is ordered. It is a privilege to be allowed the opportunity to participate in? your urological care.? Again, if you have any questions or concerns If you have any questions or concerns please do not hesitate to contact me. The office is [phone]. This note is constructed using voice recognition software. While every effort has been made to ensure accuracy platform supervisor errors may have been included. Yours sincerely, SHAINA Messina Coding Level of Care Code Est Pt Level 3 (91444) Complex EM visit Add On G2211 Diagnoses Stress incontinence N39.3 Urinary frequency R35.0 Urinary tract infection N39.0 CPT Codes Post Residual Void - PVR CPT Code: 52157-Nuaj Void Residual by ultrasound ([id number])
== END 2024-03-08 11:12 | disposition home or self-care (01) ==
PROVIDERS: PCP Student in an Organized Health Care Education/Training Program; Visit Provider Nurse Practitioner Family
DX: N39.3 Stress incontinence (female) (male) (principal); R35.0 Frequency of micturition; N39.0 Urinary tract infection, site not specified; Z13.9 Encounter for screening, unspecified
CPT/HCPCS: 99213; G2211

== ENCOUNTER → 2024-03-08 10:35 | Outpatient (BNVA) | payer OTHER, SELFPAY | PROVIDERS: PCP Student in an Organized Health Care Education/Training Program; Visit Provider Nurse Practitioner Family | DX: R35.0 Frequency of micturition (principal); N39.3 Stress incontinence (female) (male); N39.0 Urinary tract infection, site not specified | CPT/HCPCS: 51798; 81003; 99212 ==

== ENCOUNTER 2024-03-12 08:21 | Outpatient (REF) | payer OTHER, SELFPAY ==
[2024-03-12 08:37] LABS: MANUAL DIFF FLAG NO
[2024-03-12 09:27] LABS: Basophils Absolute Auto 0.1 X10*3/uL (0.0-0.2); Basophils Percent Auto 0.6 % (0-2); Eosinophils Absolute Auto 0.1 X10*3/uL (0.0-0.4); Eosinophils Percent Auto 1.1 % (0-4); Hematocrit 44.6 % (37.0-47.0); Hemoglobin 14.1 g/dl (12.0-16.0); Imm Gran Abs Auto 0.07 X10*3/uL (0.00-0.03); Imm Gran Pct Auto 0.7 % (0.0-0.4); Lymphocytes Absolute Auto 2.5 X10*3/uL (1.2-4.9); Lymphocytes Percent Auto 26.5 % (20-40); Mean Corpuscular HGB Conc 31.6 g/dl (31.0-35.0); Mean Corpuscular Hemoglobin 28.5 pg (27.0-33.0); Mean Corpuscular Volume 90.3 fL (80.0-98.0); Mean Platelet Volume 11.2 fL (9.4-12.3); Monocytes Absolute Auto 0.7 X10*3/uL (0.1-1.2); Monocytes Percent Auto 7.1 % (2-11); Neutrophils Absolute Auto 6.1 x10*3/uL (2.0-8.3); Platelet Count 174 X10*3/uL (160-400); Red Blood Count 4.94 X10*6/uL (4.20-5.50); Red Cell Distribution Width 13.8 % (11.0-16.0); White Blood Count 9.5 X10*3/uL (4.8-10.8)
[2024-03-12 10:24] LABS: Microalbum/Creatinine Ratio Ur 8.9 ug/mg cr (<30)
[2024-03-12 10:29] LABS: Alanine Aminotransferase 25 U/L (0-31); Albumin Level 3.8 g/dL (3.5-5.0); Alkaline Phosphatase 57 U/L (39-117); Anion Gap 12 (12-20); Aspartate Amino Transferase 16 U/L (5-31); Bilirubin Total 0.4 mg/dL (0.0-1.0); Blood Urea Nitrogen 22 mg/dL (9-16); Calcium 9.4 mg/dL (8.4-10.2); Carbon Dioxide 27 mmol/L (22-29); Chloride 108 mmol/L (96-108); Cholesterol 152 mg/dL (<200); Estimated Glomerular Filt Rate > 60; Glucose Fasting 150 mg/dL (60-99); HDL Cholesterol 48 mg/dL (>40); Iron 73 mcg/dL (30-160); LDL Cholesterol Calculated 87 mg/dL (<100); Percent Iron Saturation 24 % (15-50); Potassium 4.3 mmol/L (3.3-5.1); Sodium 143 mmol/L (135-145); Total Iron Binding Capacity 310 mcg/dL (228-428); Total Protein 6.8 g/dL (6.5-8.0); Triglycerides 87 mg/dL (<150); Unsaturated Iron Binding 237 ug/dL
[2024-03-12 10:46] LABS: Vitamin D 25-OH Total 36.2 ng/mL (>30)
[2024-03-12 11:01] LABS: Folate 9.8 ng/mL (> or = 4.0); Vitamin B12 634 pg/mL (200-900)
== END 2024-03-12 08:22 | disposition home or self-care (01) ==
LOC: HO.LAB 08:21
PROVIDERS: PCP Internal Medicine; Visit Provider Internal Medicine
DX: D64.9 Anemia, unspecified (principal); E78.5 Hyperlipidemia, unspecified; E53.8 Deficiency of other specified B group vitamins; E55.9 Vitamin D deficiency, unspecified; E11.9 Type 2 diabetes mellitus without complications
CPT/HCPCS: 36415; 80053; 80061; 82043; 82306; 82570; 82607; 82746; 83540; 85025

== ENCOUNTER 2024-03-15 10:16 | Outpatient (AMB) | payer OTHER, SELFPAY ==
--- NOTE | 2024-03-15 11:02 | MHC.OFFVIS ---
Vital Signs 03/15/24 11:03 Height 5 ft 2 in Weight 158 lb 2 oz BMI 28.9 BP 110/68 Blood Pressure Location Lt brachial Position Sitting Pulse 73 Pulse Source Pulse Oximeter Pulse Oximetry (%) 98 Oxygen Delivery Method Room Air Intake Visit Reasons: follow up -prednisone Supervisor Ski Production Required: Yes Supervisor Ski Production Language: Hangar Attendant Name: [id number] Kaycee Allergies Penicillins Allergy (Mild, Verified 03/15/24 11:08) RASH/DYSPNEA metformin Adverse Reaction (Intermediate, Verified 03/15/24 11:08) stomach upset HPI HPI follow up -prednisone: Details: Mellisa is a pleasant 58 year old female, never smoker, with underlying asthma, GERD, DMII, and HTN. At baseline, she has been well controlled on Advair 230 mcg and albuterol MDI. She was seen 2 weeks ago for worsening respiratory symptoms and treated with prednisone. Shortly after leaving office repeat COVID testing positive and was prescribed Paxil and by PCP. She reports improvement in wheezing, dyspnea and cough however has developed right-sided pleuritic pain. REPLACED BY [facility] Medical History Ear discomfort Palpitations Overweight Type 2 diabetes mellitus with diabetic polyneuropathy B12 deficiency DM2 (diabetes mellitus, type 2) Tubular adenoma Moderate recurrent major depression Dyslipidemia Umbilical hernia Edema Arthritis Ear pain shelter (current) use of insulin Pernicious anemia Hearing loss Insomnia Depression with anxiety Moderate asthma Essential hypertension Polyarthralgia GERD (gastroesophageal reflux disease) Diabetes Hearing loss Surgical History History of cholecystectomy History of umbilical hernia repair History of foot surgery History of carpal tunnel release History of surgery on arm History of endometrial ablation History of tubal ligation Family History Mother Breast cancer Paternal Grandmother Breast cancer Brother Colon cancer Family/Other FH: mental illness Mental health disorder Father CAD (coronary artery disease) Social History Household Members: Children Housing: Apartment Are you a primary career development facilitator to a significant other at home: No Do you presently have visiting 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) Alcohol intake: never Patient Tobacco Use Status: Never used Tobacco e-Cigarette/Vaping Use: Never Used Second Hand Smoke Exposure: No service: No Current occupational status: disabled Current occupation: Right hand dominate Cognitive needs: No Hearing needs: No Vision needs: Yes Female Reproductive History Menstrual Age of Menarche: 11 Review of Systems Const Denies chills, Denies excessive sweating, Denies fever(s), Denies headache(s) and Denies night sweats Eyes Denies dry eyes, Denies irritation and Denies itchy eyes ENT Reports Normal hearing present, Denies headache(s), Denies nasal congestion, Denies nasal discharge, Denies post nasal drip and Denies sore throat Card Denies chest pain, Denies chest pain at rest, Denies chest pain with activity, Denies claudication, Denies leg edema, Denies orthopnea and Denies paroxysmal nocturnal dyspnea Resp Denies chest congestion, Denies excessive phlegm production and Denies stridor Musc Denies myalgias Neuro Reports Normal hearing present and Denies headache(s) Endo Denies excessive sweating Kranthi/Lymph Denies lymphadenopathy Aller/Immun Denies itchy eyes and Denies seasonal rhinorrhea Physical Exam Vital Signs: Last Vital Signs Pulse 73 03/15/24 11:03 BP 110/68 03/15/24 11:03 Pulse Ox 98 03/15/24 11:03 Oxygen Delivery Method Room Air 03/15/24 11:03 BMI result Body Mass Index 28.9 Const General: cooperative, healthy appearing, comfortable, no acute distress, well developed and alert Nutritional Appearance: obese Orientation/consciousness: patient oriented x3 Limitations: no limitations HEENT Head: Yes normal to inspection, Yes normocephalic and Yes atraumatic Ears: hearing grossly normal bilaterally and external ears normal Eyes General: appearance normal, both eyes and all related structures Eyelids: Yes eyelids normal Sclerae: sclerae normal EOM: EOMs intact bilaterally Neck Neck: Yes normal visual inspection and Yes no lymphadenopathy Lymphatic: no lymphadenopathy noted Chest Chest palpation & inspection: normal inspection of the chest Resp Effort & Inspection: normal respiratory effort, able to speak in complete sentences, no audible wheezes, no cough, no stridor, not tachypneic, no tripod positioning and no use of accessory muscles Auscultation: clear to auscultation bilaterally Cardio Jugular venous distension: no JVD Rate: regular rate Rhythm: regular rhythm Skin Other: warm, dry General skin exam: no rashes or lesions noted Neuro General: patient oriented x3 Cranial nerves: Yes Normal hearing present Cognition (Neuro): normal cognition Gait exam (Neuro): Normal gait present Extrem General: Yes normal to inspection, Yes capillary refill normal, Yes no clubbing, cyanosis or edema and Yes no pedal edema Psych Appearance: grossly normal and well kempt Speech and movement: Normal speech and movement present and Clear speech present Affect: normal affect Attitude: cooperative Thought process: Normal thought process present Thought content: Normal thought content present Insight: Good insight present (Psych) Judgement: Good judgement present (Psych) Quality Reporting (2019) Adult ([facility] 13808/24/68) Smoking risk assessment performed?: Yes Patient Tobacco Use Status: Never used Tobacco Assessment & Plan Assessment & Plan (1) Pleuritic pain: Code(s): R07.81 - Pleurodynia Category: Medical (2) Asthma: Code(s): J45.909 - Unspecified asthma, uncomplicated Category: Medical Qualifiers: Asthma severity: moderate Asthma persistence: unspecified Asthma complication type: with acute exacerbation Qualified Code(s): J45.901 - Unspecified asthma with (acute) exacerbation (3) Environmental and seasonal allergies: Code(s): J30.89 - Other allergic rhinitis Category: Medical Plan Mellisa reports feeling back to baseline after prednisone except for pleuritic discomfort on the right. Will send for chest x-ray. All questions were answered and patient is in agreement of plan. Will follow-up in 2 weeks for regularly scheduled appointment or sooner if needed. Orders: Orders XR chest 2V Today R07.81 - Pleurodynia Coding Level of Care Code Est Pt Level 3 (00225) Diagnoses Pleuritic pain R07.81 Moderate asthma with acute exacerbation, unspecified whether persistent J45.901 Asthma severity: moderate Asthma persistence: unspecified Asthma complication type: with acute exacerbation Environmental and seasonal allergies J30.89
[2024-03-15 11:03] VITALS: BP 110/68; PULSE 73; O2SAT 98; BMI 28.9
== END 2024-03-15 11:44 | disposition home or self-care (01) ==
PROVIDERS: PCP Internal Medicine; Visit Provider Nurse Practitioner Family
DX: R07.81 Pleurodynia (principal); J45.901 Unspecified asthma with (acute) exacerbation; J30.89 Other allergic rhinitis
CPT/HCPCS: 99213

== ENCOUNTER → 2024-03-15 10:16 | Outpatient (BNVA) | payer OTHER, SELFPAY | PROVIDERS: PCP Internal Medicine; Visit Provider Nurse Practitioner Family | DX: J45.901 Unspecified asthma with (acute) exacerbation (principal); J30.89 Other allergic rhinitis; R07.81 Pleurodynia | CPT/HCPCS: 99212 ==

== ENCOUNTER 2024-03-18 10:22 | Outpatient (REF) | payer OTHER, SELFPAY ==
--- NOTE | ~2024-03-18 | XR_ITS ---
EXAMINATION: CR CHEST CLINICAL INFORMATION: Pleurodynia COMPARISON: Several prior chest x-rays, most recent of which is dated 12/05/2023. TECHNIQUE: 2 views of the chest were obtained. FINDINGS: The cardiomediastinal silhouette is within normal limits in size. Lungs bilaterally are symmetrically expanded. There is slight coarsening of the bronchovascular lung markings. No focal consolidation, effusion or pneumothorax is seen. Multilevel mild vertebral spondylosis seen throughout the thoracolumbar spine. XR/XR chest 2V IMPRESSION: Slight coarsening of the bronchovascular lung markings. No focal pneumonia. No pleural effusion. Electronically signed by: Mary Tompkins MD 03/18/2024 11:30 AM EDT
== END 2024-03-18 10:23 | disposition home or self-care (01) ==
LOC: HO.XRAY 10:22
PROVIDERS: PCP Internal Medicine; Visit Provider Nurse Practitioner Family
DX: R07.81 Pleurodynia (principal)
CPT/HCPCS: 71046

== ENCOUNTER 2024-03-28 11:08 | Outpatient (AMB) | payer OTHER, SELFPAY ==
--- NOTE | 2024-03-28 11:13 | A.OFFVIS_ITS ---
Vital Signs 03/28/24 11:14 Height 5 ft 2 in Weight 156 lb 8.451 oz BMI 28.6 BP 122/68 Blood Pressure Location Rt brachial Position Sitting Pulse 86 Intake Visit Reasons: DM Pump/CONFIRMED Intake Note: Patient presents today to re-establish treatment for Type Diabetes Mellitus: Last Diabetic eye exam was on: DUE Last Podiatry exam was on: Does not see a Sales And Service Consultant Most recent HbA1c: 6.8%, 03/06/2024 Random Glucose- 243 mg/dL, Today Sock Liner Required: Yes Sock Liner Language: Environmental Marketer Services: Sock Liner Present Sock Liner Name: NACHO Bruno/KI COLLINS Information Interpreted: non-clinical & clinical Accompanied by: Self / Same As Patient Allergies Penicillins Allergy (Mild, Verified 03/28/24 11:19) RASH/DYSPNEA metformin Adverse Reaction (Intermediate, Verified 03/28/24 11:19) stomach upset HPI Comments Details: Patient is a 58 year old female with DM type 2 diagnosed around 2004 who presents for management of diabetes. She was last seen by Dr. Mortensen 12/14/23 and by Kathy DELCID 02/06/24 for ilet bionic pancreas pump which she is now using with dexcom. A1C 6.8% today in the office down from pre pump 8.3% on 12/18/2023. Past medical history: Diabetes type 2, hypertension, hyperlipidemia, obesity, gastric ulcer and diverticulosis Micro and macrovascular complications: +neuropathy Previous intolerance to medications: Trulicity and Mounjaro due to abdominal pain causing irritationInvokana Diabetes medications: Ilet insulin pump pioglitazone 30 mg Invokana 100mg I am unable to download insulin pump today as her sensor is not bearing with her pump. She was given specific directions if she does not have a pared sensor that she needs to test her sugar fingerstick every 4 hours and enter into the pump in order for the insulin pump to continue to work. This backup method w orked for 48 hours. She is planning on going home today and contacting Dexcom to work out issues with sensor. She reports her sugars have been in much better range Hypoglycemia: infrequently Hyperglycemia: + urinary frequency, + nocturia, + polydypsia Exercise: housecleaning Supervisor Pumping - CDE education: currently Sales And Service Consultant: 2 years ago Ophthalmology evaluation: 10/2023 -cataract surgery in 01/2024 [facility] Medical History Ear discomfort Palpitations Overweight Type 2 diabetes mellitus with diabetic polyneuropathy B12 deficiency DM2 (diabetes mellitus, type 2) Tubular adenoma Moderate recurrent major depression Dyslipidemia Umbilical hernia Edema Arthritis 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 Pernicious anemia Hearing loss Insomnia Depression with anxiety Moderate asthma Essential hypertension Polyarthralgia GERD (gastroesophageal reflux disease) Diabetes Hearing loss Surgical History History of cholecystectomy History of umbilical hernia repair History of foot surgery History of carpal tunnel release History of surgery on arm History of endometrial ablation History of tubal ligation Family History Mother Breast cancer Paternal Grandmother Breast cancer Brother Colon cancer Family/Other FH: mental illness Mental health disorder Father CAD (coronary artery disease) Social History Household Members: Children Housing: Apartment Are you a primary critical care nurse to a significant other at home: No Do you presently have visiting nurse or 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 Absence of acromegalic features. Neck exam reveals nl size thyroid about 15 gms. No thyroid nodules palpable. No carotid bruits present. Lungs CTA. Heart S1 S2, Reg R/R. No M/R G. Skin exam reveals absence of vitiligo or acanthosis nigricans. No edema Quality Reporting (2019) Adult ([facility] ) Smoking risk assessment performed?: Yes Patient Tobacco Use Status: Never used Tobacco Results Reviewed Results Reviewed: Laboratory Last Values Glucose (Clinic) 243 mg/dL (60-115) H 03/28/24 11:23 Laboratory Tests 12/14/23 03/06/24 03/12/24 10:38 11:15 08:34 Creatinine Estimated GFR Hgb A1c (Clinic) 8.3 H 6.8 H LDL Cholesterol, Calc 25-OH Vitamin D Total Urine Microalbumin 7.0 03/12/24 08:35 Creatinine 0.76 Estimated GFR > 60 Hgb A1c (Clinic) LDL Cholesterol, Calc 87 25-OH Vitamin D Total 36.2 Urine Microalbumin Assessment & Plan Assessment & Plan (1) Type 2 diabetes mellitus with diabetic polyneuropathy: Code(s): E11.42 - Type 2 diabetes mellitus with diabetic polyneuropathy Category: Medical Qualifiers: Diabetes mellitus exterminator helper insulin use: with residential use Qualified Code(s): E11.42 - Type 2 diabetes mellitus with diabetic polyneuropathy; Z79.4 - senior living (current) use of insulin Plan: Type 2 diabetic with greatly improved A1c down to 6.8% on an islet pump. She was instructed that once she gets her islet pump pared with her Dexcom that she can discontinue Invokana as this is causing too many side effects of irritation. She is also having some irritation at the sensor and pump site and was instructed to use alcohol and let it dry and then apply skin tac which she can purchase over the counter Today I extensively re educated patient on pump trouble shooting. Need to test sugars every 4 hours if she is not pared with the pump or the pump will not work. Patient Instructions: The patient was counseled to achieve a target A1C of 7% (154 avg). Fasting blood sugars should be 90-130 in the morning and less than 180 two hours after meals. Reviewed the relationship between poor diabetic control and the developement of complications Troubleshooting after starting new pod or inserting new insulin set: Occlusion, adhesive tape sensitivity, redness Check BG 2 hours after site change Safety information: Importance of a backup plan, for manual injections, proper prescriptions and emergency supplies ketone strips, and rules for testing for ketones DKA prevention and treatment, testing Coding Level of Care Code Est Pt Level 4 (68321) Complex EM visit Add On G2211 Diagnoses Type 2 diabetes mellitus with diabetic polyneuropathy, with long-term current use of insulin E11.42; Z79.4 Diabetes mellitus residential insulin use: with exterminator helper use Time Spent (min) 40 Comment Time spent reviewing labs/provider notes, face to face, chart doc
[2024-03-28 11:14] VITALS: BP 122/68; PULSE 86; BMI 28.6
[2024-03-28 11:30] LABS: Glucose, Whole Blood 243 mg/dL (60-115)
== END 2024-03-28 11:55 | disposition home or self-care (01) ==
PROVIDERS: PCP Student in an Organized Health Care Education/Training Program; Visit Provider Nurse Practitioner Adult Health
DX: E11.42 Type 2 diabetes mellitus with diabetic polyneuropathy (principal); Z79.4 Long term (current) use of insulin
CPT/HCPCS: 99214; G2211

== ENCOUNTER → 2024-03-28 11:08 | Outpatient (BNVA) | payer OTHER, SELFPAY | PROVIDERS: PCP Student in an Organized Health Care Education/Training Program; Visit Provider Nurse Practitioner Adult Health | DX: E11.42 Type 2 diabetes mellitus with diabetic polyneuropathy (principal); E78.5 Hyperlipidemia, unspecified; Z79.4 Long term (current) use of insulin; Z96.41 Presence of insulin pump (external) (internal) | CPT/HCPCS: 82947; 99212 ==

== ENCOUNTER 2024-04-03 13:13 | Outpatient (AMB) | payer OTHER, SELFPAY ==
--- NOTE | 2024-04-03 13:16 | A.OFFVIS_ITS ---
Vital Signs 04/03/24 13:17 Height 5 ft 2 in Weight 160 lb 6 oz BMI 29.3 BP 118/64 Blood Pressure Location Rt brachial Position Sitting Pulse 64 Pulse Source Pulse Oximeter Pulse Oximetry (%) 98 Oxygen Delivery Method Room Air Intake Visit Reasons: atelectasis Electrical Engineering Technologist Required: Yes Electrical Engineering Technologist Language: Windows Systems Engineer Name: [id number] Sriram Allergies Penicillins Allergy (Mild, Verified 04/03/24 13:23) RASH/DYSPNEA metformin Adverse Reaction (Intermediate, Verified 04/03/24 13:23) stomach upset HPI HPI atelectasis: Details: Mellisa is a pleasant 58 year old female, never smoker, with underlying asthma, GERD, DMII, and HTN. At baseline, she has been well controlled on Advair 230 mcg and albuterol MDI. She was seen 3 weeks ago for worsening respiratory symptoms and treated with prednisone. Shortly after leaving office repeat COVID testing positive and was prescribed Paxlovid and by PCP. She currently denies any dyspnea, cough, wheezing and pleuritic discomfort. 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 Pernicious anemia Hearing loss Insomnia Depression with anxiety Moderate asthma Essential hypertension Polyarthralgia GERD (gastroesophageal reflux disease) Diabetes Hearing loss Surgical History History of cholecystectomy History of umbilical hernia repair History of foot surgery History of carpal tunnel release History of surgery on arm History of endometrial ablation History of tubal ligation Family History Mother Breast cancer Paternal Grandmother Breast cancer Brother Colon cancer Family/Other FH: mental illness Mental health disorder Father CAD (coronary artery disease) Social History Household Members: Children Housing: Apartment Are you a primary animal care service worker to a significant other at home: No Do you presently have visiting nurse 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) Alcohol intake: never Patient Tobacco Use Status: Never used Tobacco e-Cigarette/Vaping Use: Never Used Second Hand Smoke Exposure: No service: No Current occupational status: disabled Current occupation: Right hand dominate Cognitive needs: No Hearing needs: No Vision needs: Yes Female Reproductive History Menstrual Age of Menarche: 11 Review of Systems Const Denies chills, Denies excessive sweating, Denies fever(s), Denies headache(s) and Denies night sweats Eyes Denies dry eyes, Denies irritation and Denies itchy eyes ENT Reports Normal hearing present, Denies headache(s), Denies nasal congestion, Denies nasal discharge, Denies post nasal drip and Denies sore throat Card Denies chest pain, Denies chest pain at rest, Denies chest pain with activity, Denies claudication, Denies leg edema, Denies dyspnea, Denies dyspnea on exertion, Denies orthopnea and Denies paroxysmal nocturnal dyspnea Resp Denies chest congestion, Denies cough, Denies excessive phlegm production, Denies pain on inspiration, Denies pain with cough, Denies dyspnea, Denies dysp jean paul on exertion, Denies stridor and Denies wheezing Musc Denies myalgias Neuro Reports Normal hearing present and Denies headache(s) Endo Denies excessive sweating Kranthi/Lymph Denies lymphadenopathy Aller/Immun Denies itchy eyes, Denies seasonal rhinorrhea and Denies wheezing Physical Exam Vital Signs: Last Vital Signs Pulse 64 04/03/24 13:17 BP 118/64 04/03/24 13:17 Pulse Ox 98 04/03/24 13:17 Oxygen Delivery Method Room Air 04/03/24 13:17 BMI result Body Mass Index 29.3 Const General: cooperative, healthy appearing, comfortable, no acute distress, well developed and alert Nutritional Appearance: obese Orientation/consciousness: patient oriented x3 Limitations: no limitations HEENT Head: Yes normal to inspection, Yes normocephalic and Yes atraumatic Ears: hearing grossly normal bilaterally and external ears normal Eyes General: appearance normal, both eyes and all related structures Eyelids: Yes eyelids normal Sclerae: sclerae normal EOM: EOMs intact bilaterally Neck Neck: Yes normal visual inspection and Yes no lymphadenopathy Lymphatic: no lymphadenopathy noted Chest Chest palpation & inspection: normal inspection of the chest Resp Effort & Inspection: normal respiratory effort, able to speak in complete sentences, no audible wheezes, no cough, no stridor, not tachypneic, no tripod positioning and no use of accessory muscles Auscultation: clear to auscultation bilaterally Cardio Jugular venous distension: no JVD Rate: regular rate Rhythm: regular rhythm Skin Other: warm, dry General skin exam: no rashes or lesions noted Neuro General: patient oriented x3 Cranial nerves: Yes Normal hearing present Cognition (Neuro): normal cognition Gait exam (Neuro): Normal gait present Extrem General: Yes normal to inspection, Yes capillary refill normal, Yes no clubbing, cyanosis or edema and Yes no pedal edema Psych Appearance: grossly normal and well kempt Speech and movement: Normal speech and movement present and Clear speech present Affect: normal affect Attitude: cooperative Thought process: Normal thought process present Thought content: Normal thought content present Insight: Good insight present (Psych) Judgement: Good judgement present (Psych) Quality Reporting (2019) Adult ([facility] 138/08/24/68) Smoking risk assessment performed?: Yes Patient Tobacco Use Status: Never used Tobacco Results Reviewed Results Reviewed: [address] [address] XRay Report Signed Patient: Mellisa Akbar MR#: [id number] : 1965 Acct:[id number] Age/Sex: 58 / F ADM Date: 03/18/24 Loc: [facility] Attending Dr: Pearl Bui NP Ordering Physician: Pearl Bui NP Date of Service: 03/18/24 Procedure(s): XR chest 2V Accession Number(s): [id number] cc: Norma Lopes MD; Pearl Bui NP~ EXAMINATION: CR CHEST CLINICAL INFORMATION: Pleurodynia COMPARISON: Several prior chest x-rays, most recent of which is dated 12/05/2023. TECHNIQUE: 2 views of the chest were obtained. FINDINGS: The cardiomediastinal silhouette is within normal limits in size. Lungs bilaterally are symmetrically expanded. There is slight coarsening of the bronchovascular lung markings. No focal consolidation, effusion or pneumothorax is seen. Multilevel mild vertebral spondylosis seen throughout the thoracolumbar spine. XR/XR chest 2V IMPRESSION: Slight coarsening of the bronchovascular lung markings. No focal pneumonia. No pleural effusion. Electronically signed by: Mary Tompkins MD 03/18/2024 11:30 AM EDT RP Dictated By: Mary Tompkins MD Signed By: <Electronically signed by Mary Tompkins MD in OV> 03/18/24 1130 DD/ 1027 TD/TT: 03/18/24 1036 Painter Ordnance: LISETTE Assessment & Plan Assessment & Plan (1) Asthma: Code(s): J45.909 - Unspecified asthma, uncomplicated Category: Medical Qualifiers: Asthma complication type: with acute exacerbation Asthma persistence: unspecified Asthma severity: moderate Qualified Code(s): J45.901 - Unspecified asthma with (acute) exacerbation (2) Environmental and seasonal allergies: Code(s): J30.89 - Other allergic rhinitis Category: Medical Plan Mellisa reports feeling back to baseline since arielle COVID. Reviewed CXR which revealed slight coarsening of the bronchovascular lung markings, will send for repeat CXR in 4 weeks to assess for resolution. Advised to continue current regimen. All questions were answered and patient is in agreement of plan. Will follow-up in 6 weeks or sooner if needed. Orders: Orders XR chest 2V 4 Weeks U07.1 - COVID-19 Coding Level of Care Code Est Pt Level 3 (08207) Diagnoses Moderate asthma with acute exacerbation, unspecified whether persistent J45.901 Asthma complication type: with acute exacerbation Asthma persistence: unspecified Asthma severity: moderate Environmental and seasonal allergies J30.89
[2024-04-03 13:17] VITALS: BP 118/64; PULSE 64; O2SAT 98; BMI 29.3
== END 2024-04-03 13:43 | disposition home or self-care (01) ==
PROVIDERS: PCP Student in an Organized Health Care Education/Training Program; Visit Provider Nurse Practitioner Family
DX: J45.901 Unspecified asthma with (acute) exacerbation (principal); J30.89 Other allergic rhinitis
CPT/HCPCS: 99213

== ENCOUNTER → 2024-04-03 13:13 | Outpatient (BNVA) | payer OTHER, SELFPAY | PROVIDERS: PCP Student in an Organized Health Care Education/Training Program; Visit Provider Nurse Practitioner Family | DX: J45.901 Unspecified asthma with (acute) exacerbation (principal); J30.89 Other allergic rhinitis | CPT/HCPCS: 99212 ==

== ENCOUNTER 2024-04-04 12:54 | Outpatient (AMB) | payer OTHER, SELFPAY ==
--- NOTE | 2024-04-04 13:00 | MHC.OFFVIS ---
Vital Signs 04/04/24 13:22 Height 5 ft 2 in Weight 72 kg BMI 29.0 Intake Visit Reasons: Ultra sound follow up / EMB Pipe Fitter Supervisor Maintenance Required: Yes Pipe Fitter Supervisor Maintenance Language: Air Motor Repairer Services: Pipe Fitter Supervisor Maintenance Present (in person) Pipe Fitter Supervisor Maintenance Name: Roseann GRIFFITH Information Interpreted: non-clinical & clinical Shoe Repair Supervisor: Shoe Repair Supervisor Present (Roseann GRIFFITH) Accompanied by: Self / Same As Patient Allergies Penicillins Allergy (Mild, Verified 04/04/24 13:22) RASH/DYSPNEA metformin Adverse Reaction (Intermediate, Verified 04/04/24 13:22) stomach upset Post menopausal: Yes HPI Comments Details: Presenting for pelvic ultrasound follow-up with no complaints. No vaginal bleeding . Pelvic ultrasound showed the following: Uterus: The uterus is anteverted and measures 5.9 x 2.8 x 4.2 cm. The double wall endometrial thickness is 3 mm. The uterus is smooth in contour and has normal myometrial echogenicity. Fundal fibroid is again seen and appears minimally smaller on the current study compared to prior, measuring 1.1 x 1.1 x 0.9 cm (previously 1.2 x 1.3 x 1.2 cm). Adnexa: Both ovaries are visualized, although the left ovary is not visualized optimally. There is normal color flow to the adnexa. There is no ovarian torsion. There is no pelvic ascites or fluid collection. Right ovary measures 2.4 x 1.3 x 1.7 cm. Left ovary measures 1.8 x 1.3 x 1.3 cm. Last co testing in 10/23 was negative PFSH Medical History Ear discomfort Palpitations Overweight Type 2 diabetes mellitus with diabetic polyneuropathy B12 deficiency DM2 (diabetes mellitus, type 2) Tubular adenoma Moderate recurrent major depression Dyslipidemia Umbilical hernia Edema Arthritis Ear pain FDC (current) use of insulin Pernicious anemia Hearing loss Insomnia Depression with anxiety Moderate asthma Essential hypertension Polyarthralgia GERD (gastroesophageal reflux disease) Diabetes Hearing loss Surgical History History of cholecystectomy History of umbilical hernia repair History of foot surgery History of carpal tunnel release History of surgery on arm History of endometrial ablation History of tubal ligation Family History Mother Breast cancer Paternal Grandmother Breast cancer Brother Colon cancer Family/Other FH: mental illness Mental health disorder Father CAD (coronary artery disease) Social History Household Members: Children Housing: Apartment Are you a primary wound care nurse to a significant other at home: No Do you presently have visiting nurse or other home services: Yes ([employer] [employer]) Alcohol intake: never Patient Tobacco Use Status: Never used Tobacco e-Cigarette/Vaping Use: Never Used Second Hand Smoke Exposure: No service: No Current occupational status: disabled Current occupation: Right hand dominate Cognitive needs: No Hearing needs: No Vision needs: Yes Female Reproductive History Menstrual Age of Menarche: 11 Review of Systems Const All systems reviewed & are unremarkable except as noted in HPI and below Reports as per HPI and Reports no additional complaints GI Reports no additional complaints Reports no additional complaints Quality Reporting (2019) Adult ([facility] /[birth year]) Smoking risk assessment performed?: Yes Patient Tobacco Use Status: Never used Tobacco Assessment & Plan Assessment & Plan (1) Postmenopausal bleeding: Code(s): N95.0 - Postmenopausal bleeding Category: Medical Plan: Discussed with the patient the results of the pelvic ultrasound showing an endometrial stripe thickness of 3 mm. Explained to the patient with an endometrial stripe of 4 mm &/or less, there is a high negative predictive value in detecting endometrial pathology including endometrial hyperplasia, polyps or malignancy. Therefore, there is no indication for endometrial sampling. Discussed with the patient the sensitivity, specificity, and positive and the negative predictive value of using ultrasound in detecting endometrial pathology. The patient was instructed to call if bleeding recurs, will proceed with endometrial sampling out endometrial pathology. All questions were answered and the patient verbalized understanding and agreed with the plan. (2) Uterine myoma: Code(s): D25.9 - Leiomyoma of uterus, unspecified Category: Medical Plan: Discussed with the patient the findings on pelvic ultrasound & the risk of myosarcoma; discussed with the patient the options of treatment including expectant management versus hysterectomy; the pros and cons, risks benefits of each approach were discussed with the patient including the fact that in cases of myosarcoma, surgical treatment can lead to early diagnosis and positively affects the prognosis; after further discussion, the patient decided to proceed with expectant management. Will repeat pelvic ultrasound periodically. Instructions given to patient to call in case any of the following occurs: pressure symptoms, abnormal uterine bleeding, pelvic pain; and to schedule a six-months pelvic ultrasound and a follow-up appointment . All questions answered, the patient verbalized understanding and agreed with the plan . Orders: Orders US pelvic and transvaginal 6 Months D25.9 - Leiomyoma of uterus, unspecified Coding Level of Care Code Est Pt Level 3 (66896) Diagnoses Postmenopausal bleeding N95.0 Uterine myoma D25.9
[2024-04-04 13:22] VITALS: BMI 29.0
== END 2024-04-04 13:27 | disposition home or self-care (01) ==
LOC: HO.HWS 12:54
PROVIDERS: PCP Student in an Organized Health Care Education/Training Program; Visit Provider Obstetrics & Gynecology
DX: N95.0 Postmenopausal bleeding (principal); D25.9 Leiomyoma of uterus, unspecified
CPT/HCPCS: 99213

== ENCOUNTER → 2024-04-04 12:54 | Outpatient (BNVA) | payer OTHER, SELFPAY | PROVIDERS: PCP Student in an Organized Health Care Education/Training Program; Visit Provider Obstetrics & Gynecology | DX: N95.0 Postmenopausal bleeding (principal); D25.9 Leiomyoma of uterus, unspecified | CPT/HCPCS: 99212 ==

== ENCOUNTER 2024-04-08 08:56 | Emergency (ER) | payer OTHER, SELFPAY ==
[2024-04-08 09:03] VITALS: BP 132/64; PULSE 80; RESP 16; TEMP 36; O2SAT 97; BMI 28.9
[2024-04-08 09:20] LABS: MANUAL DIFF FLAG NO
[2024-04-08 09:22] LABS: Appearance Urine Clear; Color Urine Yellow; Glucose Urine UA 500 mg/dL (Negative); Leukocyte Esterase Urine Moderate (2+) (Negative); Nitrite Urine Positive (Negative); PH 5.5 (5.0-9.0); Specific Gravity - Urine 1.025 (1.005-1.025); UMIC TRIGGER UACC YES; Urine Blood Negative (Negative); Urine Ketones Negative (Negative); Urine Protein Negative (Neg-Trace)
[2024-04-08 09:23] LABS: Basophils Percent Auto 0.6 % (0-2); Eosinophils Absolute Auto 0.1 X10*3/uL (0.0-0.4); Eosinophils Percent Auto 1.3 % (0-4); Hematocrit 44.7 % (37.0-47.0); Hemoglobin 14.2 g/dl (12.0-16.0); Imm Gran Abs Auto 0.02 X10*3/uL (0.00-0.03); Imm Gran Pct Auto 0.3 % (0.0-0.4); Lymphocytes Absolute Auto 1.8 X10*3/uL (1.2-4.9); Lymphocytes Percent Auto 26.1 % (20-40); Mean Corpuscular HGB Conc 31.8 g/dl (31.0-35.0); Mean Corpuscular Hemoglobin 28.2 pg (27.0-33.0); Mean Corpuscular Volume 88.9 fL (80.0-98.0); Mean Platelet Volume 11.6 fL (9.4-12.3); Monocytes Absolute Auto 0.4 X10*3/uL (0.1-1.2); Monocytes Percent Auto 5.9 % (2-11); Neutrophils Absolute Auto 4.6 x10*3/uL (2.0-8.3); Neutrophils Percent Auto 65.8 % (45-73); Platelet Count 155 X10*3/uL (160-400); Red Blood Count 5.03 X10*6/uL (4.20-5.50); Red Cell Distribution Width 13.1 % (11.0-16.0)
[2024-04-08 09:25] LABS: Bacteria Urine 4+ (None Seen); Hyaline Casts Urine 0-2 /LPF (0-2); RBC Urine 0-2 /HPF (0-2); Squamous Epithelial Cell Urine 0-2 /HPF (0-2); UACC Culture Trigger YES; WBC Urine >50 /HPF (0-5)
[2024-04-08 09:36] LABS: Anion Gap 7 (12-20); Blood Urea Nitrogen 22 mg/dL (9-16); Calcium 9.4 mg/dL (8.4-10.2); Carbon Dioxide 29 mmol/L (22-29); Chloride 109 mmol/L (96-108); Creatinine Clr Calc Pharmacy 69.3; Estimated Glomerular Filt Rate > 60; Glucose Random 235 mg/dL (60-115); Potassium 4.1 mmol/L (3.3-5.1); Sodium 141 mmol/L (135-145)
--- NOTE | 2024-04-08 11:32 | ED.ABDPAIN ---
HPI - Abdominal Pain General Chief Complaint: Abdominal Pain Stated Complaint: r side lower abd pain Time Seen by Provider: 04/08/24 11:31 Source: patient and materials analyst (Gibraltarian) Mode of arrival: ambulatory Limitations: language barrier (Gibraltarian speaking) History of Present Illness ED Provider: DIONISIO POSEY PA-C HPI narrative: 58-year-old female with pmhx significant for insulin-dependent diabetes, asthma, hypertension, GERD, depression, anxiety presents to the ED today for evaluation of lower abdominal discomfort, bilateral flank pain and dysuria x 2-3 days. Reports hx of UTI 1 mo ago. Denies fever, chills, hematuria, abdominal pain, N/V, diarrhea, constipation. No other concerns. Related Data Home Medications ?Medication ?Instructions ?Recorded ?Confirmed lorazepam 0.5 mg tablet 0.5 mg PO DAILY PRN Shortness Of 04/16/20 03/06/24 Breath Or Wheezing zolpidem 5 mg tablet 5 mg PO BEDTIME PRN 04/16/20 03/06/24 sertraline 100 mg tablet 100 mg PO DAILY PRN Anxiety 12/14/23 03/06/24 sertraline 50 mg tablet 50 mg PO DAILY PRN 12/14/23 03/06/24 tirzepatide 5 mg/0.5 mL mg subcut 03/08/24 subcutaneous pen injector (Mely) Previous Rx's ?Medication ?Instructions ?Recorded fluticasone propionate 50 1 spray intranasal DAILY #100 mL 03/20/22 mcg/actuation nasal spray,suspension (Flonase Allergy Relief) lidocaine 5 % topical patch 1 patch topical DAILY #15 ea 05/30/22 heating pads #1 ea 05/31/22 docusate sodium 100 mg capsule 100 mg PO BEDTIME #90 caps 11/22/22 polyethylene glycol 3350 17 17 g PO DAILY 30 days #510 grams 11/22/22 gram/dose oral powder (Miralax) simethicone 125 mg capsule 125 mg PO BID-QID PRN abdominal 11/22/22 distention #120 caps nebulizer accessories #1 ea 11/30/22 blood sugar diagnostic (FreeStyle #150 ea 12/21/22 Lite Strips) blood-glucose meter (FreeStyle #1 ea 12/21/22 Lite Meter kit) lancets 28 gauge (FreeStyle #200 ea 12/21/22 Lancets) Ventolin HFA 90 mcg/actuation 2 puff inhalation Q6H PRN 02/21/23 aerosol inhaler (albuterol sulfate) shortness of breath or wheezing 30 days #8 grams nebulizers (AeroEclipse II #1 ea 03/30/23 Nebulizer) famotidine 20 mg tablet (Pepcid) 20 mg PO BEDTIME #90 tabs 06/23/23 linaclotide 290 mcg capsule 290 mcg PO QAM #30 caps 06/23/23 (Linzess) pantoprazole 40 mg tablet,delayed 40 mg PO DAILY #90 tabs 06/23/23 release incontinence pad, liner, disp #60 ea 10/07/23 toilet seat elevator #1 ea 10/23/23 lorazepam 1 mg tablet (Ativan) 1 mg PO ONCE PRN anxiety #2 tabs 11/01/23 solifenacin 5 mg tablet (Vesicare) 5 mg PO DAILY 30 days #30 tabs 12/12/23 miconazole nitrate 2 % vaginal 1 appful vaginal BEDTIME 7 days 12/18/23 cream #45 grams Lantus Solostar U-100 Insulin 100 42 unit (0.42 mL) subcut DAILY 90 12/25/23 unit/mL (3 mL) subcutaneous pen days #37.8 mL (insulin glargine) cholecalciferol (vitamin D3) 25 25 mcg PO DAILY 90 days #90 tabs 12/25/23 mcg (1,000 unit) tablet (Vitamin D3) cyanocobalamin (vitamin B-12) 500 500 mcg sublingual DAILY 90 days 12/25/23 mcg disintegrating #90 tabs tablet,sublingual pioglitazone 45 mg tablet 45 mg PO DAILY 90 days #90 tabs 12/25/23 canagliflozin 100 mg tablet 100 mg PO DAILY 30 days #30 tabs 01/01/24 montelukast 10 mg tablet 10 mg PO DAILY #90 tabs 01/08/24 atorvastatin 40 mg tablet 40 mg PO BEDTIME 90 days #90 tabs 01/09/24 silver sulfadiazine 1 % topical 1 appl topical DAILY 2 weeks #25 01/09/24 cream (Silvadene) grams blood-glucose meter,continuous #1 ea 01/10/24 (Dexcom G7 Institutional Cook) blood-glucose sensor (Dexcom G7 #3 ea 01/10/24 Sensor device) lidocaine HCl 2 % mucosal solution 1 appl mucous membrane BID PRN 01/17/24 pain 30 days #100 mL Shower Chair #1 ea 02/05/24 fluticasone propionate 230 2 puff inhalation Q12H #12 grams 02/05/24 mcg-salmeterol 21 mcg/actuation HFA inhaler (Advair HFA) acetone (urine) test (Ketone Urine #50 ea 02/07/24 Test strips) glucagon 3 mg/actuation nasal 3 mg intranasal ONCE #2 ea 02/07/24 spray (Baqsimi) albuterol sulfate 2.5 mg/3 mL 2.5 mg (3 mL) inhalation Q4-6H PRN 03/01/24 (0.083 %) solution for nebulization bronchospasm #75 mL albuterol sulfate 90 mcg/actuation 2 puff inhalation Q4-6H PRN 03/01/24 aerosol inhaler shortness of breath or wheezing #8.5 grams prednisone 20 mg tablet 40 mg (2 x 20 mg) PO DAILY #10 tabs 03/01/24 sulfamethoxazole 800 1 tab PO BID #10 tabs 03/03/24 mg-trimethoprim 160 mg tablet prednisone 20 mg tablet 40 mg (2 x 20 mg) PO DAILY #15 tabs 03/06/24 insulin lispro 100 unit/mL See Rx Instructions .Route 03/08/24 subcutaneous solution (Humalog USEASDIRECTD 30 days #10 mL U-100 Insulin) levofloxacin 500 mg tablet 500 mg PO DAILY 5 days #5 tabs 04/08/24 phenazopyridine 200 mg tablet 200 mg PO TID 6 doses #6 tabs 04/08/24 (Pyridium) Allergies Allergy/AdvReac Type Severity Reaction Status Date / Time Penicillins Allergy Mild RASH/DYSPNE Verified 04/08/24 09:05 A metformin AdvReac Intermediate stomach Verified 04/08/24 09:05 upset Review of Systems Review of Systems Constitutional: No fever, chills, fatigue, night sweats, weight changes ENT/Mouth: No ear pain, hearing loss, nasal congestion, sinus pain, rhinorrhea, sore throat Eyes: No eye pain, swelling, redness, vision changes, discharge Cardio: No chest pain, palpitations, BAKER, orthopnea, peripheral edema Pulm: No SOB, cough, sputum, wheezing, dyspnea, hemoptysis GI: No nausea, vomiting, hematemesis, abdominal pain, diarrhea, constipation, hematochezia, melena, +abd discomfort : No irregular bleeding, frequency, urgency, hesitancy, hematuria, flank pain, urinary flow changes, urinary incontinence or retention, +dysuria MSK: No back pain, neck pain, joint pain, myalgias Skin: No lesions, rashes Neuro: No weakness, numbness, paresthesias, LOC, dizziness, headache Psych: No anxiety/panic, depression, SI/HI, AH/VH All other systems reviewed and are negative. [facility] Past Medical History Attestation statement: The following information was validated with the patient. Source: old records reviewed and nursing notes reviewed Medical History Ear discomfort Palpitations Overweight Type 2 diabetes mellitus with diabetic polyneuropathy B12 deficiency DM2 (diabetes mellitus, type 2) Tubular adenoma Moderate recurrent major depression Dyslipidemia Umbilical hernia Edema Arthritis Ear pain nursing home (current) use of insulin Pernicious anemia Hearing loss Insomnia Depression with anxiety Moderate asthma Essential hypertension Polyarthralgia GERD (gastroesophageal reflux disease) Diabetes Hearing loss Surgical History History of cholecystectomy History of umbilical hernia repair History of foot surgery History of carpal tunnel release History of surgery on arm History of endometrial ablation History of tubal ligation Family History Family History Mother Breast cancer Paternal Grandmother Breast cancer Brother Colon cancer Family/Other FH: mental illness Mental health disorder Father CAD (coronary artery disease) Social History Social History Household Members: Children Housing: Apartment Are you a primary respite care provider to a significant other at home: No Do you presently have visiting nurse or other home services: Yes ([employer]) Alcohol intake: never Patient Tobacco Use Status: Never used Tobacco e-Cigarette/Vaping Use: Never Used Second Hand Smoke Exposure: No Advance Directives: No Advance Directives Information Provided: Yes service: No Current occupational status: disabled Current occupation: Right hand dominate Cognitive needs: No Hearing needs: No Vision needs: Yes Physical Exam ED Vital Signs: Vital Signs - 24 hr 04/08/24 09:03 Temperature 96.8 F Pulse Rate 80 Respiratory Rate 16 Blood Pressure 132/64 Pulse Oximetry 97 Oxygen Delivery Method Room Air BMI result Body Mass Index 28.9 Vital signs stable, afebrile General: Well appearing, in no acute distress. Skin: Warm, dry, intact. No rashes or lesions. Head: Normocephalic, atraumatic. EENT: Hearing is intact b/l. Conjunctiva clear. PERRLA. Moist mucous membranes.? Neck: Supple without LAD. FROM. Trachea midline.? Cardiac: Chest wall symmetric. RRR. No MRG. No JVD. Lungs: Normal respiratory effort without accessory muscle use. CTA bilaterally Abdomen: Soft, non-tender, non-distended. No rebound tenderness or guarding. Positive BS x4. No CVAT. Back: No midline spinous or paraspinal tenderness. No step off deformity. Ext: Upper and lower extremities atraumatic, without tenderness, deformity, swelling or erythema. Full ROM throughout. Neuro: AOx3. Normal speech. Ambulating with steady gait. Psych: Appropriate mood and affect. Responds appropriately to questions. Course Course Course Narrative: 1134 -- CBC without leukocytosis or left shift. No anemia. H&H stable. Chemistry without acute electrolyte abnormality requiring intervention. Kidney function WNL. Random glucose 235. Urine with positive nitrites, moderate amount of leukocyte esterase, over 50 WBCs and 4+ urine bacteria. Positive for infection. On chart review, patient's urine has grown Klebsiella pneumoniae x2 resistant to ampicillin, Bactrim, sensitive to cefazolin, ceftriaxone, gentamicin, levofloxacin and indeterminate to nitrofurantoin. > [facility]. Patient has remained stable throughout ED visit today. Discussed worrisome signs and symptoms and when to return to the ED. All questions answered at this time. Patient is agreeable with disposition and stable for discharge. Medical Decision Making Medical Decision Making [facility] Narrative: 58-year-old female with pmhx significant for insulin-dependent diabetes, asthma, hypertension, GERD, depression, anxiety presents to the ED today for evaluation of lower abdominal discomfort, bilateral flank pain and dysuria x 2-3 days. Vital signs stable, afebrile. She is nontoxic appearing in no acute distress. On exam, mildly tender to palpation of suprapubic abdomen bilaterally. No rebound tenderness or guarding. No CVAT bilaterally. Skin warm, dry, intact. Patient A&O x3. Differential diagnosis includes anemia, electrolyte abnormality, urinary tract infection. Presentation not consistent with pyelonephritis, hydronephrosis, nephrolithiasis, renal colic. Unlikely appendicitis, cholecystitis, pancreatitis, IUP, TOA, ovarian cyst/ rupture, ectopic. Basic labs and UA obtained from triage. Plan to review and re-evaluate. Differential Diagnosis Differential Diagnoses: The differential diagnosis associated with the presentation includes As above Admission/Observation Not indicated Lab Data MDM Lab Attestation statement: I reviewed the patient's lab results. As above 04/08/24 09:13 04/08/24 09:13 Labs: Lab Results 04/08/24 Range/Units 09:13 WBC 7.0 (4.8-10.8) X10*3/uL RBC 5.03 (4.20-5.50) X10*6/uL Hgb 14.2 (12.0-16.0) g/dl Hct 44.7 (37.0-47.0) % MCV 88.9 (80.0-98.0) fL MCH 28.2 (27.0-33.0) pg MCHC 31.8 (31.0-35.0) g/dl RDW 13.1 (11.0-16.0) % Plt Count 155 L (160-400) X10*3/uL MPV 11.6 (9.4-12.3) fL Immature Gran % (Auto) 0.3 (0.0-0.4) % Neut % (Auto) 65.8 (45-73) % Lymph % (Auto) 26.1 (20-40) % Mills % (Auto) 5.9 (2-11) % Eos % (Auto) 1.3 (0-4) % Baso % (Auto) 0.6 (0-2) % Lymph # (Auto) 1.8 (1.2-4.9) X10*3/uL Mills # (Auto) 0.4 (0.1-1.2) X10*3/uL Eos # (Auto) 0.1 (0.0-0.4) X10*3/uL Baso # (Auto) 0.0 (0.0-0.2) X10*3/uL Abs Immat Gran (auto) 0.02 (0.00-0.03) X10*3/uL Absolute Neuts (auto) 4.6 (2.0-8.3) x10*3/uL Absolute Nucleated RBC 0.000 (0.0-0.012) X10*3/uL Nucleated RBC % (auto) 0.0 (0.0-0.2) /100WBC Sodium 141 (135-145) mmol/L Potassium 4.1 (3.3-5.1) mmol/L Chloride 109 H (96-108) mmol/L Carbon Dioxide 29 (22-29) mmol/L Anion Gap 7 L (12-20) BUN 22 H (9-16) mg/dL Creatinine 0.81 (0.5-1.4) mg/dL Estim Creat Clear Calc 69.3 Estimated GFR > 60 Random Glucose 235 H (60-115) mg/dL Calcium 9.4 (8.4-10.2) mg/dL Urine Color Yellow Urine Appearance Clear Urine pH 5.5 (5.0-9.0) Ur Specific Powell 1.025 (1.005-1.025) Urine Protein Negative (Neg-Trace) mg/dL Urine Glucose (UA) 500 H (Negative) mg/dL Urine Ketones Negative (Negative) mg/dL Urine Blood Negative (Negative) Urine Nitrite Positive H (Negative) Ur Leukocyte Esterase Moderate (2+) H (Negative) Urine RBC 0-2 (0-2) /HPF Urine WBC >50 H (0-5) /HPF Ur Squamous Epith Cells 0-2 (0-2) /HPF Urine Bacteria 4+ (None Seen) Hyaline Casts 0-2 (0-2) /LPF External Record Review External record reviewed: Inpatient record, Office record, Outpatient record, Prior outpatient labs, Prior outpatient radiology, Primary care record and Outside ED record Prescription Management I considered prescription management with: Antibiotic (Levofloxacin) and Other (Pyridium) Chronic Conditions Patient?s care impacted by: Diabetes Social Determinants Patient?s care significantly limited by Social Determinants of Health including: Other Social Determinant of Health Critical Care Time Critical Care Time Critical Care Time: No Discharge Plan Discharge Clinical Impression: Urinary tract infection Patient Disposition: Home, Self-Care Instructions: Urinary Tract Infection in Women (ED) Additional Instructions: Your urine today was positive for infection. Levofloxacin is an antibiotic that has been sent to your pharmacy. Take this as prescribed and do not miss any doses. You must complete the entire course of antibiotics. If you do not, there is a risk of the infection coming back or worsening. Pyridium is an analgesic that can relieve the pain, burning, and discomfort caused by infection or irritation of the urinary tract. It is not an antibiotic and will not cure the infection itself. This has been sent to your pharmacy. Take this as needed for discomfort. Pyridium can cause your urine to turn a reddish orange color.? Follow up with your primary care provider as needed. If you develop a fever or new/ worsening symptoms call 911 or come back to the ER for further evaluation. Prescriptions: New levofloxacin 500 mg tablet 500 mg PO DAILY 5 Days Qty: 5 0RF phenazopyridine [Pyridium] 200 mg tablet 200 mg PO TID Qty: 6 0RF No Action fluticasone propionate [Flonase Allergy Relief] 50 mcg/actuation spray,suspension 1 spray intranasal DAILY Qty: 100 0RF Rx Instructions: administer into each nostril (DME) heating pads Pad See Rx Instructions .Route Qty: 1 0RF Rx Instructions: As directed (DME) FreeStyle Lite Strips Strip See Rx Instructions .ROUTE .MEDSUPPLY Qty: 150 11RF Rx Instructions: As directed four times a day (DME) blood-glucose meter [FreeStyle Lite Meter] Kit See Rx Instructions .ROUTE .MEDSUPPLY Qty: 1 0RF Rx Instructions: use as directed to test blood sugar 4x per day (DME) lancets [FreeStyle Lancets] [facility] See Rx Instructions .ROUTE .MEDSUPPLY Qty: 200 11RF Rx Instructions: 4 times a day albuterol sulfate [Ventolin HFA] 90 mcg/actuation HFA aerosol inhaler 2 puff inhalation Q6H PRN (Reason: shortness of breath or wheezing) 30 Days Qty: 8 1RF (DME) nebulizers [AeroEclipse II Nebulizer] Misc See Rx Instructions .Route Qty: 1 0RF Rx Instructions: As directed (DME) incontinence pad, liner, disp Pad See Rx Instructions .Route Qty: 60 11RF Rx Instructions: Use 1 pad twice a day cholecalciferol (vitamin D3) [Vitamin D3] 25 mcg (1,000 unit) tablet 25 mcg PO DAILY 90 Days Qty: 90 3RF cyanocobalamin (vitamin B-12) 500 mcg tablet,disintegrating 500 mcg sublingual DAILY 90 Days Qty: 90 1RF insulin glargine [Lantus Solostar U-100 Insulin] 100 unit/mL (3 mL) insulin pen 42 unit subcut DAILY 90 Days Qty: 37.8 1RF pioglitazone 45 mg tablet 45 mg PO DAILY 90 Days Qty: 90 2RF canagliflozin 100 mg tablet 100 mg PO DAILY 30 Days Qty: 30 6RF montelukast 10 mg tablet 10 mg PO DAILY Qty: 90 3RF (DME) Dexcom G7 Sensor Device See Rx Instructions .Route Qty: 3 5RF Rx Instructions: As directed change every 10 days (DME) Dexcom G7 Institutional Cook Misc See Rx Instructions .Route Qty: 1 0RF Rx Instructions: As directed (DME) Shower Chair Misc See Rx Instructions .Route Qty: 1 0RF Rx Instructions: As directed (DME) Ketone Urine Test Strip See Rx Instructions .Route Qty: 50 5RF Rx Instructions: As directed Baqsimi 3 mg/actuation spray,non-aerosol 3 mg intranasal ONCE Qty: 2 4RF insulin lispro [Humalog U-100 Insulin] 100 unit/mL solution See Rx Instructions .ROUTE USEASDIRECTD 30 Days Qty: 10 1RF Rx Instructions: up to 45 units per day via pump use as directed; lidocaine 5 % adhesive patch,medicated 1 patch topical DAILY Qty: 15 0RF Rx Instructions: leave on most painful area for up to 12 hrs sulfamethoxazole-trimethoprim 800-160 mg tablet 1 tab PO BID Qty: 10 0RF zolpidem 5 mg tablet 5 mg PO BEDTIME PRN lorazepam 0.5 mg tablet 0.5 mg PO DAILY PRN (Reason: Shortness Of Breath Or Wheezing) sertraline 100 mg tablet 100 mg PO DAILY PRN (Reason: Anxiety) (DME) toilet seat elevator See Rx Instructions .Route .MEDSUPPLY Qty: 1 0RF Rx Instructions: As directed (DME) nebulizer accessories Misc See Rx Instructions .Route Qty: 1 0RF Rx Instructions: NEBULIZER FACE MASK ADULT, USE DIRECTED silver sulfadiazine [Silvadene] 1 % cream 1 appl topical DAILY 14 Days Qty: 25 0RF Rx Instructions: apply a 1.5 mm thickness atorvastatin 40 mg tablet 40 mg PO BEDTIME 90 Days Qty: 90 0RF miconazole nitrate 2 % cream 1 appful vaginal BEDTIME 7 Days Qty: 45 0RF lidocaine HCl 2 % solution 1 appl mucous membrane BID PRN (Reason: pain) 30 Days Qty: 100 0RF docusate sodium 100 mg capsule 100 mg PO BEDTIME Qty: 90 3RF polyethylene glycol 3350 [Miralax] 17 gram/dose powder 17 g PO DAILY 30 Days Qty: 510 3RF simethicone 125 mg capsule 125 mg PO BID-QID PRN (Reason: abdominal distention) Qty: 120 3RF fluticasone propion-salmeterol [Advair HFA] 230-21 mcg/actuation HFA aerosol inhaler 2 puff inhalation Q12H Qty: 12 3RF prednisone 20 mg tablet 40 mg PO DAILY Qty: 10 0RF albuterol sulfate 2.5 mg /3 mL (0.083 %) solution for nebulization 2.5 mg inhalation Q4-6H PRN (Reason: bronchospasm) Qty: 75 0RF albuterol sulfate 90 mcg/actuation HFA aerosol inhaler 2 puff inhalation Q4-6H PRN (Reason: shortness of breath or wheezing) Qty: 8.5 0RF prednisone 20 mg tablet 40 mg PO DAILY Qty: 15 0RF Rx Instructions: 40 mg x 5 days, then 20 mg x 5 days sertraline 50 mg tablet 50 mg PO DAILY PRN Linzess 290 mcg capsule 290 mcg PO QAM Qty: 30 4RF pantoprazole 40 mg tablet,delayed release (DR/EC) 40 mg PO DAILY Qty: 90 2RF Rx Instructions: take one tablet half an hour before breakfast famotidine [Pepcid] 20 mg tablet 20 mg PO BEDTIME Qty: 90 3RF lorazepam [Ativan] 1 mg tablet 1 mg PO ONCE PRN (Reason: anxiety) Qty: 2 0RF Rx Instructions: Take one tab 2 hours before your right shoulder MRI; take the second tab 30 minutes before your MRI. solifenacin [Vesicare] 5 mg tablet 5 mg PO DAILY 30 Days Qty: 30 3RF Mounjaro 5 mg/0.5 mL pen injector subcut Referrals: Norma Lopes MD [Primary Care Provider] - Discharge Date/Time: 04/08/24 11:58 Print Language: Gibraltarian
--- NOTE | 2024-04-08 11:57 | PC.NURSE ---
PT WAS SEEN AND DISCHARGED BY PROVIDER FROM TRIAGE/WR
== END 2024-04-08 11:58 | disposition home or self-care (01) ==
PROVIDERS: Emergency Provider Emergency Medicine; PCP Internal Medicine
DX: N39.0 Urinary tract infection, site not specified (principal); B96.1 Klebsiella pneumoniae [K. pneumoniae] as the cause of diseases classified elsewhere; E11.9 Type 2 diabetes mellitus without complications; I10 Essential (primary) hypertension; Z87.440 Personal history of urinary (tract) infections; Z79.4 Long term (current) use of insulin; Z79.899 Other long term (current) drug therapy
CPT/HCPCS: 36415; 80048; 81001; 85025; 87086; 87088; 87186; 99282; 99283

== ENCOUNTER 2024-04-11 13:24 | Outpatient (AMB) | payer OTHER, SELFPAY ==
[2024-04-11 13:32] VITALS: BP 122/62; PULSE 79; O2SAT 96; BMI 29.8
--- NOTE | 2024-04-11 13:32 | HO.NEPHOV_ITS ---
Vital Signs 04/11/24 13:32 Height 5 ft 2 in Weight 163 lb BMI 29.8 BP 122/62 Blood Pressure Location Rt brachial Position Sitting Pulse 79 Pulse Source Pulse Oximeter Pulse Oximetry (%) 96 Oxygen Delivery Method Room Air Intake Visit Reasons: Pt called in for sooner appt/ UTI? Principal Android Developer Required: Yes Principal Android Developer Name: [id number] stephanie Accompanied by: Self / Same As Patient Allergies Penicillins Allergy (Mild, Verified 04/11/24 13:34) RASH/DYSPNEA metformin Adverse Reaction (Intermediate, Verified 04/11/24 13:34) stomach upset Medication List - Last Reconciled 04/11/24 by Kris Rausch MD acetone (urine) test (Ketone Urine Test strips) As directed albuterol sulfate 90 mcg/actuation 2 puffs inhalation Q4-6H PRN albuterol sulfate 2.5 mg (3 mL) inhalation Q4-6H PRN atorvastatin 40 mg PO BEDTIME 90 days blood sugar diagnostic (FreeStyle Lite Strips) As directed four times a day blood-glucose meter (FreeStyle Lite Meter kit) use as directed to test blood sugar 4x per day blood-glucose meter,continuous ([employer] G7 Sales Teacher) As directed blood-glucose sensor ([employer] G7 Sensor device) As directed change every 10 days canagliflozin 100 mg PO DAILY 30 days cholecalciferol (vitamin D3) (Vitamin D3) 25 mcg PO DAILY 90 days cyanocobalamin (vitamin B-12) 500 mcg sublingual DAILY 90 days docusate sodium 100 mg PO BEDTIME famotidine (Pepcid) 20 mg PO BEDTIME fluticasone propion-salmeterol 230-21 mcg/actuation (Advair HFA) 2 puffs inhalation Q12H fluticasone propionate 50 mcg/actuation (Flonase Allergy Relief) 1 spray intranasal DAILY glucagon 3 mg/actuation (Baqsimi) 3 mg intranasal ONCE heating pads As directed incontinence pad, liner, disp Use 1 pad twice a day insulin lispro (Humalog U-100 Insulin) up to 45 units per day via pump use as directed; 30 days lancets (FreeStyle Lancets) 4 times a day Lantus Solostar U-100 Insulin (insulin glargine) 42 units (0.42 mL) subcut DAILY 90 days NS levofloxacin 500 mg PO DAILY 5 days lidocaine 5% 1 patch topical DAILY lidocaine HCl 2% 1 appl mucous membrane BID PRN 30 days linaclotide (Linzess) 290 mcg PO QAM lorazepam 0.5 mg PO DAILY PRN lorazepam (Ativan) 1 mg PO ONCE PRN miconazole nitrate 2% 1 appful vaginal BEDTIME 7 days montelukast 10 mg PO DAILY nebulizer accessories NEBULIZER FACE MASK ADULT, USE DIRECTED nebulizers (AeroECatglobee II Nebulizer) As directed pantoprazole 40 mg PO DAILY phenazopyridine (Pyridium) 200 mg PO TID 6 doses pioglitazone 45 mg PO DAILY 90 days polyethylene glycol 3350 (Miralax) 17 grams PO DAILY 30 days prednisone 40 mg (2 x 20 mg) PO DAILY prednisone 40 mg (2 x 20 mg) PO DAILY sertraline 50 mg PO DAILY PRN sertraline 100 mg PO DAILY PRN Shower Chair As directed silver sulfadiazine 1% (Silvadene) 1 appl topical DAILY 2 weeks simethicone 125 mg PO BID-QID PRN solifenacin (Vesicare) 5 mg PO DAILY 30 days sulfamethoxazole-trimethoprim 800-160 mg 1 tab PO BID tirzepatide (Mounjaro) mg subcut [toilet seat elevator As directed] Ventolin HFA 90 mcg/actuation (albuterol sulfate) 2 puffs inhalation Q6H PRN 30 days NS zolpidem 5 mg PO BEDTIME PRN HPI Comments Details: 58-year-old man with a history of longstanding diabetes mellitus for almost 23 years has been referred for evaluation of renal function. She has been noting some foaming during urination. There is a question of proteinuria. Serum creatinine has been stable and less than 1.0. She tells me his blood sugar has been suboptimally controlled recent A1c was 8.3%. Currently she is being treated by endocrinology. She has been taking hydrochlorothiazide 12.5 mg. This was given because of generalized edema. She admits to eating excessive salty food. 01/05/2024. Overall doing well. Recently had vaginal fungal infection. She was treated with miconazole. She is on SGLT2 inhibitors. 04/11/24 REcently had COVID Also had UTI with and treated with antibiotics [facility] Medical History Ear discomfort Palpitations Overweight Type 2 diabetes mellitus with diabetic polyneuropathy B12 deficiency DM2 (diabetes mellitus, type 2) Tubular adenoma Moderate recurrent major depression Dyslipidemia Umbilical hernia Edema Arthritis Ear pain prison (current) use of insulin Pernicious anemia Hearing loss Insomnia Depression with anxiety Moderate asthma Essential hypertension Polyarthralgia GERD (gastroesophageal reflux disease) Diabetes Hearing loss Surgical History History of cholecystectomy History of umbilical hernia repair History of foot surgery History of carpal tunnel release History of surgery on arm History of endometrial ablation History of tubal ligation Family History Mother Breast cancer Paternal Grandmother Breast cancer Brother Colon cancer Family/Other FH: mental illness Mental health disorder Father CAD (coronary artery disease) Social History Household Members: Children Housing: Apartment Are you a primary manager medicare to a significant other at home: No Do you presently have visiting nurse or other home services: 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) Alcohol intake: never Patient Tobacco Use Status: Never used Tobacco e-Cigarette/Vaping Use: Never Used Second Hand Smoke Exposure: No service: No Current occupational status: disabled Current occupation: Right hand dominate Cognitive needs: No Hearing needs: No Vision needs: Yes Female Reproductive History Menstrual Age of Menarche: 11 Physical Exam Vital Signs: Last Vital Signs Pulse 79 04/11/24 13:32 BP 122/62 04/11/24 13:32 Pulse Ox 96 04/11/24 13:32 Oxygen Delivery Method Room Air 04/11/24 13:32 BMI result Body Mass Index 29.8 Const General: comfortable; No acute distress Orientation/consciousness: patient oriented x3 Eyes General: appearance normal, both eyes and all related structures Visual Hines: normal visual hines by confrontation Neck Neck: Yes supple and Yes no JVD Resp Effort & Inspection: normal respiratory effort and respiratory effort not decreased Auscultation: rhonchi Cardio Palpation: no palpable S3 and no palpable S4 Heart sounds: no rubs GI Inspection: Yes normal to inspection Palpation (GI): Soft to palpation Percussion: Yes normal to percussion Auscultation: normal bowel sounds General: Yes no CVA tenderness Back/Spine/Pelvis Back: no CVA tenderness Skin General skin exam: no petechiae and no purpura Neuro General: patient oriented x3 and no focal motor deficits Extrem General: No clubbing and No edema Results Reviewed Nephrology Results: Hgb 14.2 g/dl (12.0-16.0) 04/08/24 WBC 7.0 X10*3/uL (4.8-10.8) 04/08/24 Plt Count 155 X10*3/uL (160-400) L 04/08/24 Sodium 141 mmol/L (135-145) 04/08/24 Potassium 4.1 mmol/L (3.3-5.1) 04/08/24 Chloride 109 mmol/L (96-108) H 04/08/24 Carbon Dioxide 29 mmol/L (22-29) 04/08/24 BUN 22 mg/dL (9-16) H 04/08/24 Creatinine 0.81 mg/dL (0.5-1.4) 04/08/24 Calcium 9.4 mg/dL (8.4-10.2) 04/08/24 Urine Protein Negative mg/dL (Neg-Trace) 04/08/24 Urine Creatinine 77.80 mg/dL 03/12/24 Assessment & Plan Assessment & Plan (1) Type 2 diabetes mellitus with diabetic polyneuropathy: Code(s): E11.42 - Type 2 diabetes mellitus with diabetic polyneuropathy Category: Medical Qualifiers: Diabetes mellitus mcfp insulin use: with terminal superintendent use Qualified Code(s): E11.42 - Type 2 diabetes mellitus with diabetic polyneuropathy; Z79.4 - prison (current) use of insulin (2) Proteinuria: Code(s): R80.9 - Proteinuria, unspecified Category: Medical Plan . Middle-aged woman with longstanding history of diabetes mellitus. At present renal function stable with a creatinine of 0.9 mg/dL. In the past she did not have any significant proteinuria. No significant proteinuria based on urine protein creatinine ratio. The blood pressure well controlled. She would hypotension while she was on hydrochlorothiazide. After discontinuing hydrochlorothiazide blood pressure seems optimal Encouraged her to stand on a low-sodium diet. Needs to increase p.o. fluid intake. Concur with other management and agree with using SGLT2 inhibitors. The glycosuria is due to the use of SGLT2 inhibitors and no further intervention is needed. Recent UTI Will recheck Urine c/s Orders: Orders Urine Culture Today R35.0 - Frequency of micturition Basic Metabolic Panel 6 Months R80.9 - Proteinuria, unspecified Total Protein Urine Random 6 Months R80.9 - Proteinuria, unspecified Creatinine Urine 6 Months R80.9 - Proteinuria, unspecified Coding Level of Care Code Est Pt Level 4 (87338) Diagnoses Type 2 diabetes mellitus with diabetic polyneuropathy, with long-term current use of insulin E11.42; Z79.4 Diabetes mellitus terminal superintendent insulin use: with terminal superintendent use Proteinuria R80.9
== END 2024-04-11 13:58 | disposition home or self-care (01) ==
PROVIDERS: PCP Internal Medicine; Visit Provider Internal Medicine Hypertension Specialist
DX: E11.42 Type 2 diabetes mellitus with diabetic polyneuropathy (principal); Z79.4 Long term (current) use of insulin; R80.9 Proteinuria, unspecified
CPT/HCPCS: 99214

== ENCOUNTER → 2024-04-11 13:24 | Outpatient (BNVA) | payer OTHER, SELFPAY | PROVIDERS: PCP Internal Medicine; Visit Provider Internal Medicine Hypertension Specialist | DX: R80.9 Proteinuria, unspecified (principal); R35.0 Frequency of micturition; E11.42 Type 2 diabetes mellitus with diabetic polyneuropathy; Z79.4 Long term (current) use of insulin; Z79.899 Other long term (current) drug therapy | CPT/HCPCS: 99212 ==

== ENCOUNTER 2024-04-13 08:57 | Outpatient (REF) | payer OTHER, SELFPAY ==
[2024-04-13 09:15] LABS: MANUAL DIFF FLAG NO
[2024-04-13 09:30] LABS: Basophils Percent Auto 0.5 % (0-2); Eosinophils Absolute Auto 0.1 X10*3/uL (0.0-0.4); Eosinophils Percent Auto 1.8 % (0-4); Hematocrit 44.6 % (37.0-47.0); Hemoglobin 13.9 g/dl (12.0-16.0); Imm Gran Abs Auto 0.03 X10*3/uL (0.00-0.03); Imm Gran Pct Auto 0.4 % (0.0-0.4); Lymphocytes Absolute Auto 2.1 X10*3/uL (1.2-4.9); Lymphocytes Percent Auto 28.6 % (20-40); Mean Corpuscular HGB Conc 31.2 g/dl (31.0-35.0); Mean Corpuscular Hemoglobin 27.9 pg (27.0-33.0); Mean Corpuscular Volume 89.4 fL (80.0-98.0); Monocytes Absolute Auto 0.5 X10*3/uL (0.1-1.2); Monocytes Percent Auto 6.2 % (2-11); Neutrophils Absolute Auto 4.6 x10*3/uL (2.0-8.3); Neutrophils Percent Auto 62.5 % (45-73); Platelet Count 140 X10*3/uL (160-400); Red Blood Count 4.99 X10*6/uL (4.20-5.50); Red Cell Distribution Width 13.1 % (11.0-16.0); White Blood Count 7.3 X10*3/uL (4.8-10.8)
[2024-04-13 09:40] LABS: Appearance Urine Clear; Color Urine Yellow; Glucose Urine UA Negative (Negative); Leukocyte Esterase Urine Moderate (2+) (Negative); Nitrite Urine Negative (Negative); PH 5.5 (5.0-9.0); UMIC TRIGGER UA YES; Urine Blood Negative (Negative); Urine Ketones Negative (Negative); Urine Protein Negative (Neg-Trace)
[2024-04-13 10:05] LABS: Microalbum/Creatinine Ratio Ur 14.1 ug/mg cr (<30)
[2024-04-13 10:08] LABS: Bacteria Urine None Seen (None Seen); Hyaline Casts Urine 0-2 /LPF (0-2); RBC Urine 0-2 /HPF (0-2); Squamous Epithelial Cell Urine 0-2 /HPF (0-2); Total Protein Urine Random < 7 mg/dL (<12)
[2024-04-13 10:18] LABS: Alanine Aminotransferase 22 U/L (0-31); Albumin Level 3.9 g/dL (3.5-5.0); Alkaline Phosphatase 55 U/L (39-117); Anion Gap 11 (12-20); Aspartate Amino Transferase 22 U/L (5-31); Bilirubin Total 0.6 mg/dL (0.0-1.0); Blood Urea Nitrogen 19 mg/dL (9-16); Calcium 9.5 mg/dL (8.4-10.2); Carbon Dioxide 25 mmol/L (22-29); Chloride 108 mmol/L (96-108); Cholesterol 145 mg/dL (<200); Estimated Glomerular Filt Rate > 60; Glucose Fasting 222 mg/dL (60-99); Glucose Random 219 mg/dL (60-115); HDL Cholesterol 41 mg/dL (>40); LDL Cholesterol Calculated 78 mg/dL (<100); Sodium 140 mmol/L (135-145); Total Protein 6.7 g/dL (6.5-8.0); Triglycerides 133 mg/dL (<150)
[2024-04-13 10:24] LABS: Vitamin D 25-OH Total 35.3 ng/mL (>30)
[2024-04-13 11:39] LABS: Vitamin B12 471 pg/mL (200-900)
== END 2024-04-13 08:58 | disposition home or self-care (01) ==
LOC: HO.LAB 08:57
PROVIDERS: PCP Internal Medicine; Referring Provider Internal Medicine; Visit Provider Internal Medicine Hypertension Specialist
DX: E11.65 Type 2 diabetes mellitus with hyperglycemia (principal); R31.29 Other microscopic hematuria; E11.42 Type 2 diabetes mellitus with diabetic polyneuropathy; E78.5 Hyperlipidemia, unspecified; R80.9 Proteinuria, unspecified; E53.8 Deficiency of other specified B group vitamins; E55.9 Vitamin D deficiency, unspecified; R35.0 Frequency of micturition
CPT/HCPCS: 36415; 80053; 80061; 81001; 81003; 82043; 82306; 82570; 82607; 82746; 84156; 85025; 87086

== ENCOUNTER 2024-04-17 08:52 | Outpatient (AMB) | payer OTHER, SELFPAY ==
[2024-04-17 09:10] VITALS: BP 112/70; BMI 29.8
--- NOTE | 2024-04-17 09:10 | MHC.PC.OV ---
Vital Signs 04/17/24 09:10 Height 5 ft 2 in Weight 163 lb BMI 29.8 BP 112/70 Blood Pressure Location Lt brachial Position Sitting Intake Visit Reasons: [facility] [place], [place] 04/08 rt abdominal pain Occupational Health Nurse Supervisor Required: No Accompanied by: Self / Same As Patient Allergies Penicillins Allergy (Mild, Verified 04/17/24 10:56) RASH/DYSPNEA metformin Adverse Reaction (Intermediate, Verified 04/17/24 10:56) stomach upset Medication List - Last Reconciled 04/17/24 by Norma Bland MD acetone (urine) test (Ketone Urine Test strips) As directed albuterol sulfate 90 mcg/actuation 2 puffs inhalation Q4-6H PRN albuterol sulfate 2.5 mg (3 mL) inhalation Q4-6H PRN atorvastatin 40 mg PO BEDTIME 90 days blood sugar diagnostic (FreeStyle Lite Strips) As directed four times a day blood-glucose meter (FreeStyle Lite Meter kit) use as directed to test blood sugar 4x per day blood-glucose meter,continuous ([employer] G7 [employer] Fruit Crops) As directed blood-glucose sensor ([employer] G7 Sensor device) As directed change every 10 days canagliflozin 100 mg PO DAILY 30 days cholecalciferol (vitamin D3) (Vitamin D3) 25 mcg PO DAILY 90 days cyanocobalamin (vitamin B-12) 500 mcg sublingual DAILY 90 days docusate sodium 100 mg PO BEDTIME famotidine (Pepcid) 20 mg PO BEDTIME fluticasone propion-salmeterol 230-21 mcg/actuation (Advair HFA) 2 puffs inhalation Q12H fluticasone propionate 50 mcg/actuation (Flonase Allergy Relief) 1 spray intranasal DAILY glucagon 3 mg/actuation (Baqsimi) 3 mg intranasal ONCE heating pads As directed incontinence pad, liner, disp Use 1 pad twice a day insulin lispro (Humalog U-100 Insulin) up to 45 units per day via pump use as directed; 30 days lancets (FreeStyle Lancets) 4 times a day Lantus Solostar U-100 Insulin (insulin glargine) 42 units (0.42 mL) subcut DAILY 90 days NS lidocaine 5% 1 patch topical DAILY lidocaine HCl 2% 1 appl mucous membrane BID PRN 30 days linaclotide (Linzess) 290 mcg PO QAM lorazepam 0.5 mg PO DAILY PRN lorazepam (Ativan) 1 mg PO ONCE PRN miconazole nitrate 2% 1 appful vaginal BEDTIME 7 days montelukast 10 mg PO DAILY nebulizer accessories NEBULIZER FACE MASK ADULT, USE DIRECTED nebulizers (AeroEclipse II Nebulizer) As directed pantoprazole 40 mg PO DAILY phenazopyridine (Pyridium) 200 mg PO TID 6 doses pioglitazone 45 mg PO DAILY 90 days polyethylene glycol 3350 (Miralax) 17 grams PO DAILY 30 days sertraline 50 mg PO DAILY PRN sertraline 100 mg PO DAILY PRN Shower Chair As directed silver sulfadiazine 1% (Silvadene) 1 appl topical DAILY 2 weeks simethicone 125 mg PO BID-QID PRN solifenacin (Vesicare) 5 mg PO DAILY 30 days sulfamethoxazole-trimethoprim 800-160 mg 1 tab PO BID tirzepatide (Mounjaro) mg subcut [toilet seat elevator As directed] Ventolin HFA 90 mcg/actuation (albuterol sulfate) 2 puffs inhalation Q6H PRN 30 days NS zolpidem 5 mg PO BEDTIME PRN Tobacco use date assessed: 10/23/23 Dental Screening Dental Screen Date: 04/17/24 Did you have a dental visit in the last 12 months?: Yes Did you have a dental problem in the last 6 months where you did not have access to dental care?: No Was dental information given to patient?: Patient has dentist HPI HPI Comments History of Present Illness Details This is a 58-year-old female with diabetes mellitus type 2 on long-term current use of insulin, hypertension, pure hypercholesterolemia and moderate asthma that comes today as hospital discharge follow-up due to abdominal pain. Pain has improved. Diabetes mellitus is follow by Endocrinology and last A1c was not on goal. Blood pressure stable. On statins for cholesterol. She complains of some shortness breath and had COVID-19 in January which has worsened her shortness on breath. She follows with pulmonology for her asthma but is having wheezing and I will start her on prednisone and give her Mucinex for cough. She was cleaning her ears with Q-tip and has the tip of the Q-tip in the right ear. Granddaughter try to remove with with tweezers and apparently move it deeper. I could barely see it. Will be referred to ENT. Complains of chest pain occasionally and I will order EKG. 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 Pernicious anemia Hearing loss Insomnia Depression with anxiety Moderate asthma Essential hypertension Polyarthralgia GERD (gastroesophageal reflux disease) Diabetes Hearing loss Surgical History History of cholecystectomy History of umbilical hernia repair History of foot surgery History of carpal tunnel release History of surgery on arm History of endometrial ablation History of tubal ligation Family History Mother Breast cancer Paternal Grandmother Breast cancer Brother Colon cancer Family/Other FH: mental illness Mental health disorder Father CAD (coronary artery disease) Social History Household Members: Children Housing: Apartment Are you a primary healthcare management consultant to a significant other at home: No Do you presently have visiting nurse or other home services: Yes (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 Hernandez Love, Rebecca Peacock, Kalyan Becker and colleagues, with an educational julio from [employer]. Review of Systems Const All systems reviewed & are unremarkable except as noted in HPI and below Card Denies chest pain at rest, Denies chest pain with activity, Denies edema, Denies irregular heart rhythm, Denies claudication, Denies dyspnea, Denies dyspnea on exertion, Denies orthopnea, Denies paroxysmal nocturnal dyspnea and Denies slow heart rate Resp Denies cough, Denies dyspnea and Denies dyspnea on exertion GI Denies abdominal pain, Denies change in bowel habits, Denies excessive flatus, Denies nausea and Denies vomiting Neuro Denies behavioral changes and Denies lack of coordination Psych Denies behavioral changes Physical exam (Primary Care) Vital Signs: Last Vital Signs BP 112/70 04/17/24 09:10 BMI result Body Mass Index 29.8 Tobacco/Smoking Status: Tobacco use Status Tobacco use date assessed 10/23/23 04/17/24 09:16 Patient Tobacco Use Status Never used Tobacco 04/17/24 09:16 e-Cigarette/Vaping Use Never Used 04/17/24 09:16 Thrive Assessment: Date of Thrive Assessment Date Thrive assessed 10/23/23 04/17/24 09:16 HENMT Ears: other (piece of cotton very deep in ear canal) Resp Effort & Inspection: normal respiratory effort Auscultation: clear to auscultation bilaterally Cardio Jugular venous distension: no JVD Rate: regular rate Rhythm: regular rhythm Heart sounds: S1 normal heart sound present and S2 normal heart sound present Extrem General: Yes full ROM Office Procedures Flu Questionnaire Does the patient have a severe egg allergy?: No Results AMB Hemoglobin A1c AMB Hemoglobin A1c 7.4 % Last Edit by NACHO Oneil on 04/17/24 09:21 Immunizations Fluarix Triv [id number] (PF) 45 mcg (15 mcg x 3)/0.5 mL IM syringe Performing Provider: Norma Bland MD Performing Location: [facility] [place] [place] [facility] Documented (not given) by: NACHO Oneil on 04/17/24 09:36 Reason Not Given: Not Given Results Reviewed Results Reviewed: Laboratory Last Values Hgb A1c (Clinic) 7.4 % (4.0-6.0) H 04/17/24 09:10 Coding Level of Care Code Est Pt Level 4 (22245) Complex EM visit Add On G2211 Diagnoses Ear foreign body T16.9XXA Chest pain R07.9 Hyperlipidemia LDL goal <70 E78.5 Type 2 diabetes mellitus with hyperglycemia, without long-term current use of insulin E11.65 Diabetes mellitus snf insulin use: without tank terminal gauger use Diabetes mellitus complication status: with hyperglycemia Moderate persistent asthma without complication J45.40 Asthma persistence: persistent Asthma complication type: uncomplicated Time Spent (min) 25 Assessment & Plan Assessment & Plan (1) Ear foreign body: Code(s): T16.9XXA - Foreign body in ear, unspecified ear, initial encounter Category: Medical Plan: Referred to ENT. (2) Chest pain: Code(s): R07.9 - Chest pain, unspecified Category: Medical Plan: EKG ordered. (3) Hyperlipidemia LDL goal <70: Code(s): E78.5 - Hyperlipidemia, unspecified Category: Medical Plan: Continue statins. LDL goal is less than 70. (4) DM2 (diabetes mellitus, type 2): Code(s): E11.9 - Type 2 diabetes mellitus without complications Category: Medical Qualifiers: Diabetes mellitus snf insulin use: without snf use Diabetes mellitus complication status: with hyperglycemia Qualified Code(s): E11.65 - Type 2 diabetes mellitus with hyperglycemia Plan: Continue insulin. Follow-up with endocrinology. A1c goal is equal or less than 7%. (5) Moderate asthma: Code(s): J45.909 - Unspecified asthma, uncomplicated Category: Medical Qualifiers: Asthma persistence: persistent Asthma complication type: uncomplicated Qualified Code(s): J45.40 - Moderate persistent asthma, uncomplicated Plan: Continue Advair. Start prednisone pack. Follow-up with pulmonology. Orders: Orders Influenza [id number] Immunization Today Z23 - Encounter for immunization AMB Hemoglobin A1c Today E11.42 - Type 2 diabetes mellitus with diabetic polyneuropathy, Z79.4 - terminal operator (current) use of insulin ECG 12 lead EKG Today R07.9 - Chest pain, unspecified Referrals Ear/Nose/Throat Referral T16.1XXA - Foreign body in right ear, initial encounter Medications: New guaifenesin ER (Mucinex) 600 mg PO BID 10 tabs 0RF 5 days prednisone Take 4 tabs for 2 days, then 3 tabs for 2 days, then 2 tabs for 2 days, then 1 tab for 2 days 10 mg PO DIRECTED 20 tabs 0RF 8 days
== END 2024-04-17 09:41 | disposition home or self-care (01) ==
PROVIDERS: PCP Internal Medicine; Visit Provider Internal Medicine
DX: T16.9XXA Foreign body in ear, unspecified ear, initial encounter (principal); R07.9 Chest pain, unspecified; E78.5 Hyperlipidemia, unspecified; E11.65 Type 2 diabetes mellitus with hyperglycemia; J45.40 Moderate persistent asthma, uncomplicated; E11.42 Type 2 diabetes mellitus with diabetic polyneuropathy; Z79.4 Long term (current) use of insulin; Z23 Encounter for immunization

== ENCOUNTER → 2024-04-17 08:52 | Outpatient (REF) | payer OTHER, SELFPAY ==
--- NOTE | 2024-04-17 10:15 | ECG_ITS ---
Test Reason : Chest Pain Blood Pressure : / mmHG Vent. Rate : 081 BPM Atrial Rate : 081 BPM P-R Int : 150 ms QRS Dur : 076 ms QT Int : 398 ms P-R-T Axes : 067 065 047 degrees QTc Int : 462 ms Normal sinus rhythm Normal ECG When compared with ECG of 03-MAR-2024 07:48, No significant change was found Referred By: Norma Bland Electronically Signed By:PRANAV FRANZ
== END ==
LOC: HO.CARD 08:52
PROVIDERS: PCP Internal Medicine; Visit Provider Internal Medicine
DX: R07.9 Chest pain, unspecified (principal); T16.9XXA Foreign body in ear, unspecified ear, initial encounter; E78.5 Hyperlipidemia, unspecified; E11.65 Type 2 diabetes mellitus with hyperglycemia; J45.40 Moderate persistent asthma, uncomplicated
CPT/HCPCS: 83036; 90471; 93005; 99212

== ENCOUNTER → 2024-04-17 10:15 | Outpatient (BNV) | payer OTHER, SELFPAY | PROVIDERS: PCP Internal Medicine; Visit Provider Internal Medicine | DX: R07.9 Chest pain, unspecified (principal) | CPT/HCPCS: 93010 ==

== ENCOUNTER 2024-04-17 10:31 | Emergency (ER) | payer OTHER, SELFPAY ==
[2024-04-17 10:55] VITALS: BP 134/77; PULSE 76; RESP 18; TEMP 35.9; O2SAT 98; BMI 29.8
--- NOTE | 2024-04-17 11:00 | ED_ITS ---
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 She states that she was cleaning her ears yesterday with a Q-tip and believes part of the cotton became stuck in her ear. She attempted to remove this herself without success. She had routine follow-up with Dr. Dorman this morning and reports she was able to visualize cotton in the ear. Provided referral to ENT and advised to come to the ED for further evaluation. Denies any hearing changes or discharge from the ear. Denies trauma or injury to the ear. Related Data Home Medications ?Medication ?Instructions ?Recorded ?Confirmed lorazepam 0.5 mg tablet 0.5 mg PO DAILY PRN Shortness Of 04/16/20 04/17/24 Breath Or Wheezing zolpidem 5 mg tablet 5 mg PO BEDTIME PRN 04/16/20 04/17/24 sertraline 100 mg tablet 100 mg PO DAILY PRN Anxiety 12/14/23 04/17/24 sertraline 50 mg tablet 50 mg PO DAILY PRN 12/14/23 04/17/24 tirzepatide 5 mg/0.5 mL mg subcut 03/08/24 04/17/24 subcutaneous pen injector (Mely) Previous Rx's ?Medication ?Instructions ?Recorded fluticasone propionate 50 1 spray intranasal DAILY #100 mL 03/20/22 mcg/actuation nasal spray,suspension (Flonase Allergy Relief) lidocaine 5 % topical patch 1 patch topical DAILY #15 ea 05/30/22 heating pads #1 ea 05/31/22 docusate sodium 100 mg capsule 100 mg PO BEDTIME #90 caps 11/22/22 polyethylene glycol 3350 17 17 g PO DAILY 30 days #510 grams 11/22/22 gram/dose oral powder (Miralax) simethicone 125 mg capsule 125 mg PO BID-QID PRN abdominal 11/22/22 distention #120 caps nebulizer accessories #1 ea 11/30/22 blood sugar diagnostic (FreeStyle #150 ea 12/21/22 Lite Strips) blood-glucose meter (FreeStyle #1 ea 12/21/22 Lite Meter kit) lancets 28 gauge (FreeStyle #200 ea 12/21/22 Lancets) Ventolin HFA 90 mcg/actuation 2 puff inhalation Q6H PRN 02/21/23 aerosol inhaler (albuterol sulfate) shortness of breath or wheezing 30 days #8 grams nebulizers (AeroEclipse II #1 ea 03/30/23 Nebulizer) famotidine 20 mg tablet (Pepcid) 20 mg PO BEDTIME #90 tabs 06/23/23 linaclotide 290 mcg capsule 290 mcg PO QAM #30 caps 06/23/23 (Linzess) pantoprazole 40 mg tablet,delayed 40 mg PO DAILY #90 tabs 06/23/23 release incontinence pad, liner, disp #60 ea 10/07/23 toilet seat elevator #1 ea 10/23/23 lorazepam 1 mg tablet (Ativan) 1 mg PO ONCE PRN anxiety #2 tabs 11/01/23 solifenacin 5 mg tablet (Vesicare) 5 mg PO DAILY 30 days #30 tabs 12/12/23 miconazole nitrate 2 % vaginal 1 appful vaginal BEDTIME 7 days 12/18/23 cream #45 grams Lantus Solostar U-100 Insulin 100 42 unit (0.42 mL) subcut DAILY 90 12/25/23 unit/mL (3 mL) subcutaneous pen days #37.8 mL (insulin glargine) cholecalciferol (vitamin D3) 25 25 mcg PO DAILY 90 days #90 tabs 12/25/23 mcg (1,000 unit) tablet (Vitamin D3) cyanocobalamin (vitamin B-12) 500 500 mcg sublingual DAILY 90 days 12/25/23 mcg disintegrating #90 tabs tablet,sublingual pioglitazone 45 mg tablet 45 mg PO DAILY 90 days #90 tabs 12/25/23 canagliflozin 100 mg tablet 100 mg PO DAILY 30 days #30 tabs 01/01/24 montelukast 10 mg tablet 10 mg PO DAILY #90 tabs 01/08/24 atorvastatin 40 mg tablet 40 mg PO BEDTIME 90 days #90 tabs 01/09/24 silver sulfadiazine 1 % topical 1 appl topical DAILY 2 weeks #25 01/09/24 cream (Silvadene) grams blood-glucose meter,continuous #1 ea 01/10/24 (Dexcom G7 Non Categorical Preschool Teacher) blood-glucose sensor (Dexcom G7 #3 ea 01/10/24 Sensor device) lidocaine HCl 2 % mucosal solution 1 appl mucous membrane BID PRN 01/17/24 pain 30 days #100 mL Shower Chair #1 ea 02/05/24 fluticasone propionate 230 2 puff inhalation Q12H #12 grams 02/05/24 mcg-salmeterol 21 mcg/actuation HFA inhaler (Advair HFA) acetone (urine) test (Ketone Urine #50 ea 02/07/24 Test strips) glucagon 3 mg/actuation nasal 3 mg intranasal ONCE #2 ea 02/07/24 spray (Baqsimi) albuterol sulfate 2.5 mg/3 mL 2.5 mg (3 mL) inhalation Q4-6H PRN 03/01/24 (0.083 %) solution for nebulization bronchospasm #75 mL albuterol sulfate 90 mcg/actuation 2 puff inhalation Q4-6H PRN 03/01/24 aerosol inhaler shortness of breath or wheezing #8.5 grams sulfamethoxazole 800 1 tab PO BID #10 tabs 03/03/24 mg-trimethoprim 160 mg tablet insulin lispro 100 unit/mL See Rx Instructions .Route 03/08/24 subcutaneous solution (Humalog USEASDIRECTD 30 days #10 mL U-100 Insulin) phenazopyridine 200 mg tablet 200 mg PO TID 6 doses #6 tabs 04/08/24 (Pyridium) guaifenesin 600 mg tablet, 600 mg PO BID 5 days #10 tabs 04/17/24 extended release 12 hr (Mucinex) prednisone 10 mg tablet 10 mg PO DIRECTED 8 days #20 04/17/24 tabs Allergies Allergy/AdvReac Type Severity Reaction Status Date / Time Penicillins Allergy Mild RASH/DYSPNE Verified 04/17/24 10:56 A metformin AdvReac Intermediate stomach Verified 04/17/24 10:56 upset Review of Systems Review of Systems: Yes all other systems are reviewed and are negative PMFSH Past Medical History Attestation statement: The following information was validated with the patient. Source: old records reviewed and nursing notes reviewed Medical History Ear discomfort Palpitations Overweight Type 2 diabetes mellitus with diabetic polyneuropathy B12 deficiency DM2 (diabetes mellitus, type 2) Tubular adenoma Moderate recurrent major depression Dyslipidemia Umbilical hernia Edema Arthritis Ear pain 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 Pernicious anemia Hearing loss Insomnia Depression with anxiety Moderate asthma Essential hypertension Polyarthralgia GERD (gastroesophageal reflux disease) Diabetes Hearing loss Surgical History History of cholecystectomy History of umbilical hernia repair History of foot surgery History of carpal tunnel release History of surgery on arm History of endometrial ablation History of tubal ligation Family History Family History Mother Breast cancer Paternal Grandmother Breast cancer Brother Colon cancer Family/Other FH: mental illness Mental health disorder Father CAD (coronary artery disease) Social History Social History Household Members: Children Housing: Apartment Are you a primary primary care coordinator to a significant other at home: No 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) Alcohol intake: never Patient Tobacco Use Status: Never used Tobacco e-Cigarette/Vaping Use: Never Used Second Hand Smoke Exposure: No Advance Directives: No Advance Directives Information Provided: Yes service: No Current occupational status: disabled Current occupation: Right hand dominate Cognitive needs: No Hearing needs: No Vision needs: Yes Physical Exam Vital Signs: Vital Signs: Last Vital Signs Temp 96.7 F L 04/17/24 11:06 Pulse 76 04/17/24 11:06 Resp 18 04/17/24 11:06 BP 134/77 04/17/24 11:06 Pulse Ox 98 04/17/24 11:06 O2 Del Method Room Air 04/17/24 11:06 BMI result Body Mass Index 29.8 vital signs stable. General: Well appearing, in no acute distress. Skin: Warm, dry, intact. No rashes or lesions. Head: Normocephalic, atraumatic. EENT: Hearing is intact b/l. Conjunctiva clear. PERRLA. Moist mucous membranes.?no pain on manipulation of right pinna, tragus. No mastoid tenderness or fluctuance. Right EAC mildly erythematous without edema or discharge. There is no noted foreign body/cotton within the right EAC. TM intact without effusion, bulging or erythema. BeBird ear camera utilized in order to confirm absence of foreign body within the ear canal. No foreign body visualized. Neck: Supple without LAD Cardiac: Chest wall symmetric. RRR. Lungs: Normal respiratory effort without accessory muscle use Neuro: AOx3. Normal speech. Psych: Appropriate mood and affect. Responds appropriately to questions. Medical Decision Making Medical Decision Making MDM Narrative: 58 year old Palauan speaking female with pmhx significant for insulin dependent DM, asthma, HTN, GERD, depression, anxiety presents to the ED today for evaluation of suspected foreign body in right ear canal. Vital signs stable. She is nontoxic appearing in no acute distress. On exam, no pain on manipulation of right pinna, tragus. No mastoid tenderness or fluctuance. Right EAC mildly erythematous without edema or discharge. There is no noted foreign body/cotton within the right EAC. TM intact without effusion, bulging or erythema. Be[employer] ear camera utilized in order to confirm absence of foreign body within the ear canal. No foreign body visualized. Differential diagnosis includes otic FB, otitis media, otitis externa. No concern for mastoiditis, malignant otitis externa, TM perforation. As there is no FB noted to EAC, patient advised to follow up with ENT. Referral provided per PCP. Patient has remained stable throughout ED visit today. Discussed worrisome signs and symptoms and when to return to the ED. All questions answered at this time. Patient is agreeable with disposition and stable for discharge. Differential Diagnosis Differential Diagnoses: The differential diagnosis associated with the presentation includes As above Admission/Observation Not indicated External Record Review External record reviewed: Inpatient record, Office record, Outpatient record, Prior outpatient labs, Prior outpatient radiology, Primary care record and Outside ED record Chronic Conditions Patient?s care impacted by: Diabetes Social Determinants Patient?s care significantly limited by Social Determinants of Health including: Other Social Determinant of Health Critical Care Time Critical Care Time Critical Care Time: No Discharge Plan Discharge Clinical Impression: Ear foreign body Patient Disposition: Home, Self-Care Instructions: Ear Foreign Body (ED) Additional Instructions: You were evaluated in the ED today for suspected cotton in your right ear. On exam, there is no cotton present in your right ear canal. Return with new or worsening symptoms. In the case of an emergency call 911. Prescriptions: No Action fluticasone propionate [Flonase Allergy Relief] 50 mcg/actuation spray,suspension 1 spray intranasal DAILY Qty: 100 0RF Rx Instructions: administer into each nostril (DME) heating pads Pad See Rx Instructions .Route Qty: 1 0RF Rx Instructions: As directed (DME) FreeStyle Lite Strips Strip See Rx Instructions .ROUTE .MEDSUPPLY Qty: 150 11RF Rx Instructions: As directed four times a day (DME) blood-glucose meter [FreeStyle Lite Meter] Kit See Rx Instructions .ROUTE .MEDSUPPLY Qty: 1 0RF Rx Instructions: use as directed to test blood sugar 4x per day (DME) lancets [FreeStyle Lancets] 28 gauge misc See Rx Instructions .ROUTE .MEDSUPPLY Qty: 200 11RF Rx Instructions: 4 times a day albuterol sulfate [Ventolin HFA] 90 mcg/actuation HFA aerosol inhaler 2 puff inhalation Q6H PRN (Reason: shortness of breath or wheezing) 30 Days Qty: 8 1RF (DME) nebulizers [AeroEclipse II Nebulizer] Misc See Rx Instructions .Route Qty: 1 0RF Rx Instructions: As directed (DME) incontinence pad, liner, disp Pad See Rx Instructions .Route Qty: 60 11RF Rx Instructions: Use 1 pad twice a day cholecalciferol (vitamin D3) [Vitamin D3] 25 mcg (1,000 unit) tablet 25 mcg PO DAILY 90 Days Qty: 90 3RF cyanocobalamin (vitamin B-12) 500 mcg tablet,disintegrating 500 mcg sublingual DAILY 90 Days Qty: 90 1RF insulin glargine [Lantus Solostar U-100 Insulin] 100 unit/mL (3 mL) insulin pen 42 unit subcut DAILY 90 Days Qty: 37.8 1RF pioglitazone 45 mg tablet 45 mg PO DAILY 90 Days Qty: 90 2RF canagliflozin 100 mg tablet 100 mg PO DAILY 30 Days Qty: 30 6RF montelukast 10 mg tablet 10 mg PO DAILY Qty: 90 3RF (DME) Polarion Softwarecom G7 Sensor Device See Rx Instructions .Route Qty: 3 5RF Rx Instructions: As directed change every 10 days (DME) Dexcom G7 Non Categorical Preschool Teacher Misc See Rx Instructions .Route Qty: 1 0RF Rx Instructions: As directed (DME) Shower Chair Misc See Rx Instructions .Route Qty: 1 0RF Rx Instructions: As directed (DME) Ketone Urine Test Strip See Rx Instructions .Route Qty: 50 5RF Rx Instructions: As directed Baqsimi 3 mg/actuation spray,non-aerosol 3 mg intranasal ONCE Qty: 2 4RF insulin lispro [Humalog U-100 Insulin] 100 unit/mL solution See Rx Instructions .ROUTE USEASDIRECTD 30 Days Qty: 10 1RF Rx Instructions: up to 45 units per day via pump use as directed; lidocaine 5 % adhesive patch,medicated 1 patch topical DAILY Qty: 15 0RF Rx Instructions: leave on most painful area for up to 12 hrs sulfamethoxazole-trimethoprim 800-160 mg tablet 1 tab PO BID Qty: 10 0RF phenazopyridine [Pyridium] 200 mg tablet 200 mg PO TID Qty: 6 0RF zolpidem 5 mg tablet 5 mg PO BEDTIME PRN lorazepam 0.5 mg tablet 0.5 mg PO DAILY PRN (Reason: Shortness Of Breath Or Wheezing) sertraline 100 mg tablet 100 mg PO DAILY PRN (Reason: Anxiety) (DME) toilet seat elevator See Rx Instructions .Route .MEDSUPPLY Qty: 1 0RF Rx Instructions: As directed (DME) nebulizer accessories [facility] [place] Rx Instructions .Route Qty: 1 0RF Rx Instructions: NEBULIZER FACE MASK ADULT, USE DIRECTED silver sulfadiazine [Silvadene] 1 % cream 1 appl topical DAILY 14 Days Qty: 25 0RF Rx Instructions: apply a 1.5 mm thickness atorvastatin 40 mg tablet 40 mg PO BEDTIME 90 Days Qty: 90 0RF miconazole nitrate 2 % cream 1 appful vaginal BEDTIME 7 Days Qty: 45 0RF lidocaine HCl 2 % solution 1 appl mucous membrane BID PRN (Reason: pain) 30 Days Qty: 100 0RF docusate sodium 100 mg capsule 100 mg PO BEDTIME Qty: 90 3RF polyethylene glycol 3350 [Miralax] 17 gram/dose powder 17 g PO DAILY 30 Days Qty: 510 3RF simethicone 125 mg capsule 125 mg PO BID-QID PRN (Reason: abdominal distention) Qty: 120 3RF fluticasone propion-salmeterol [Advair HFA] 230-21 mcg/actuation HFA aerosol inhaler 2 puff inhalation Q12H Qty: 12 3RF albuterol sulfate 2.5 mg /3 mL (0.083 %) solution for nebulization 2.5 mg inhalation Q4-6H PRN (Reason: bronchospasm) Qty: 75 0RF albuterol sulfate 90 mcg/actuation HFA aerosol inhaler 2 puff inhalation Q4-6H PRN (Reason: shortness of breath or wheezing) Qty: 8.5 0RF sertraline 50 mg tablet 50 mg PO DAILY PRN Linzess 290 mcg capsule 290 mcg PO QAM Qty: 30 4RF pantoprazole 40 mg tablet,delayed release (DR/EC) 40 mg PO DAILY Qty: 90 2RF Rx Instructions: take one tablet half an hour before breakfast famotidine [Pepcid] 20 mg tablet 20 mg PO BEDTIME Qty: 90 3RF lorazepam [Ativan] 1 mg tablet 1 mg PO ONCE PRN (Reason: anxiety) Qty: 2 0RF Rx Instructions: Take one tab 2 hours before your right shoulder MRI; take the second tab 30 minutes before your MRI. solifenacin [Vesicare] 5 mg tablet 5 mg PO DAILY 30 Days Qty: 30 3RF Mounjaro 5 mg/0.5 mL pen injector subcut prednisone 10 mg tablet 10 mg PO DIRECTED 8 Days Qty: 20 0RF Rx Instructions: Take 4 tabs for 2 days, then 3 tabs for 2 days, then 2 tabs for 2 days, then 1 tab for 2 days guaifenesin [Mucinex] 600 mg tablet extended release 12hr 600 mg PO BID 5 Days Qty: 10 0RF Interventions: ED Discharge Assessment Last Done: 04/17/24 11:06 Discharge Date/Time: 04/17/24 11:07 Print Language: Palauan
[2024-04-17 11:06] VITALS: BP 134/77; PULSE 76; RESP 18; TEMP 35.9; O2SAT 98
== END 2024-04-17 11:07 | disposition home or self-care (01) ==
PROVIDERS: Emergency Provider Emergency Medicine; PCP Internal Medicine
DX: T16.1XXA Foreign body in right ear, initial encounter (principal); W44.8XXA Other foreign body entering into or through a natural orifice, initial encounter; Y93.E8 Activity, other personal hygiene; Y92.019 Unspecified place in single-family (private) house as the place of occurrence of the external cause; Y99.9 Unspecified external cause status
CPT/HCPCS: 99282

== ENCOUNTER 2024-04-23 10:22 | Outpatient (AMB) | payer OTHER, SELFPAY ==
--- NOTE | 2024-04-23 10:28 | MHC.OFFVIS ---
Vital Signs 04/23/24 10:31 Height 5 ft 2 in Weight 164 lb 6 oz BMI 30.1 BP 130/62 Blood Pressure Location Lt brachial Position Sitting Pulse 91 Pulse Source Pulse Oximeter Pulse Oximetry (%) 98 Oxygen Delivery Method Room Air Intake Visit Reasons: atelectasis Blood Bank Custodian Required: Yes Blood Bank Custodian Language: Restaurant Inspector Name: [id number] Marcella Valenzuela OA Allergies Penicillins Allergy (Mild, Verified 04/23/24 10:39) RASH/DYSPNEA metformin Adverse Reaction (Intermediate, Verified 04/23/24 10:39) stomach upset HPI HPI atelectasis: Details: Mellisa is a pleasant 58 year old female, never smoker, with underlying asthma, GERD, DMII, and HTN. At baseline, she has been well controlled on Advair 230 mcg and albuterol MDI. She was seen over the last month on multiple occasions with worsening respiratory symptoms and treated with prednisone x 2, currently on taper from PCP. She was also seen on 04/07 and treated with levaquin 500 mg x 7 days for UTI. Patient recently seen by PCP on 04/17 with c/o chest pain and increased wheezing. EKG unremarkable and given prednisone taper. She continues with allergic symptoms, productive cough, wheezing, pleuritic discomfort on the right despite being on prednisone, Advair and singulair. Of note, she reports having a parakeet and rugs in house, letter was given to patient for removal, which may be contributing to symptoms. [facility] Medical History Ear discomfort Palpitations Overweight Type 2 diabetes mellitus with diabetic polyneuropathy B12 deficiency DM2 (diabetes mellitus, type 2) Tubular adenoma Moderate recurrent major depression Dyslipidemia Umbilical hernia Edema Arthritis Ear pain halfway (current) use of insulin Pernicious anemia Hearing loss Insomnia Depression with anxiety Moderate asthma Essential hypertension Polyarthralgia GERD (gastroesophageal reflux disease) Diabetes Hearing loss Surgical History History of cholecystectomy History of umbilical hernia repair History of foot surgery History of carpal tunnel release History of surgery on arm History of endometrial ablation History of tubal ligation Family History Mother Breast cancer Paternal Grandmother Breast cancer Brother Colon cancer Family/Other FH: mental illness Mental health disorder Father CAD (coronary artery disease) Social History Household Members: Children Housing: Apartment Are you a primary acute care certified nursing assistant to a significant other at home: No Do you presently have 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) Alcohol intake: never Patient Tobacco Use Status: Never used Tobacco e-Cigarette/Vaping Use: Never Used Second Hand Smoke Exposure: No service: No Current occupational status: disabled Current occupation: Right hand dominate Cognitive needs: No Hearing needs: No Vision needs: Yes Female Reproductive History Menstrual Age of Menarche: 11 Review of Systems Const Denies chills, Denies excessive sweating, Denies fever(s), Denies headache(s) and Denies night sweats Eyes Denies dry eyes, Denies irritation and Denies itchy eyes ENT Reports Normal hearing present, Denies headache(s), Denies nasal congestion, Denies nasal discharge, Denies post nasal drip and Denies sore throat Card Denies chest pain, Denies chest pain at rest, Denies chest pain with activity, Denies claudication, Denies leg edema, Denies orthopnea and Denies paroxysmal nocturnal dyspnea Resp Denies chest congestion, Denies excessive phlegm production and Denies stridor Musc Denies myalgias Neuro Reports Normal hearing present and Denies headache(s) Endo Denies excessive sweating Kranthi/Lymph Denies lymphadenopathy Aller/Immun Denies itchy eyes and Denies seasonal rhinorrhea Physical Exam Vital Signs: Last Vital Signs Pulse 91 04/23/24 10:31 BP 130/62 04/23/24 10:31 Pulse Ox 98 04/23/24 10:31 Oxygen Delivery Method Room Air 04/23/24 10:31 BMI result Body Mass Index 30.1 Const General: cooperative, comfortable, no acute distress, well developed and alert Nutritional Appearance: obese Orientation/consciousness: patient oriented x3 Limitations: no limitations HEENT Head: Yes normal to inspection, Yes normocephalic and Yes atraumatic Ears: hearing grossly normal bilaterally and external ears normal Eyes General: appearance normal, both eyes and all related structures Eyelids: Yes eyelids normal Sclerae: sclerae normal EOM: EOMs intact bilaterally Neck Neck: Yes normal visual inspection and Yes no lymphadenopathy Lymphatic: no lymphadenopathy noted Chest Chest palpation & inspection: normal inspection of the chest Resp Other: faint expiratory wheezes, resolved with duoneb Effort & Inspection: normal respiratory effort, able to speak in complete sentences, no cough, no stridor, not tachypneic, no tripod positioning and no use of accessory muscles Cardio Jugular venous distension: no JVD Rate: regular rate Rhythm: regular rhythm Skin Other: warm, dry General skin exam: no rashes or lesions noted Neuro General: patient oriented x3 Cranial nerves: Yes Normal hearing present Cognition (Neuro): normal cognition Gait exam (Neuro): Normal gait present Extrem General: Yes normal to inspection, Yes capillary refill normal, Yes no clubbing, cyanosis or edema and Yes no pedal edema Psych Appearance: grossly normal and well kempt Speech and movement: Normal speech and movement present and Clear speech present Affect: normal affect Attitude: cooperative Thought process: Normal thought process present Thought content: Normal thought content present Insight: Good insight present (Psych) Judgement: Good judgement present (Psych) Quality Reporting (2019) Adult ([facility] ) Smoking risk assessment performed?: Yes Patient Tobacco Use Status: Never used Tobacco Assessment & Plan Assessment & Plan (1) Asthma: Code(s): J45.909 - Unspecified asthma, uncomplicated Category: Medical Qualifiers: Asthma severity: moderate Asthma persistence: unspecified Asthma complication type: with acute exacerbation Qualified Code(s): J45.901 - Unspecified asthma with (acute) exacerbation (2) Environmental and seasonal allergies: Code(s): J30.89 - Other allergic rhinitis Category: Medical (3) Pleuritic pain: Code(s): R07.81 - Pleurodynia Category: Medical Plan Mellisa continues to report worsening asthma symptoms as well as allergic symptoms and pleuritic pain. Prior CXR which revealed slight coarsening of the bronchovascular lung markings, however symptoms are persisting despite prednisone and levaquin. Will send for chest CT. Will also switch Advair to Trelegy and send zpak for bronchitic symptoms. Advised to complete prednisone taper. Will also send for labs to r/o allergic contribution from bird. Discussed removing bird to see if symptoms improve. All questions were answered and patient is in agreement of plan. Will follow-up to review results or sooner if needed. Orders: Orders Other Ref Test - [facility] [place] Today Z91.09 - Other allergy status, other than to drugs and biological substances CT chest wo IV con Today R05.9 - Cough, unspecified, R07.81 - Pleurodynia Medications: New azithromycin For 250 mg dose pack: take 500 mg today (day 1), then 250 mg for 4 days (days 2-5) PO 6 tabs 0RF [id number]-[id number]-[id number] 100-62.5-25 mcg (Trelegy Ellipta) 1 inh inhalation DAILY 60 ea 6RF Discontinued fluticasone propion-salmeterol 230-21 mcg/actuation (Advair HFA) Discontinued Reason: Patient Completed Course 2 puffs inhalation Q12H 12 grams 3RF Coding Level of Care Code Est Pt Level 4 (73115) Diagnoses Moderate asthma with acute exacerbation, unspecified whether persistent J45.901 Asthma severity: moderate Asthma persistence: unspecified Asthma complication type: with acute exacerbation Environmental and seasonal allergies J30.89 Pleuritic pain R07.81
[2024-04-23 10:31] VITALS: BP 130/62; PULSE 91; O2SAT 98; BMI 30.1
== END 2024-04-23 11:25 | disposition home or self-care (01) ==
PROVIDERS: PCP Internal Medicine; Visit Provider Nurse Practitioner Family
DX: J45.901 Unspecified asthma with (acute) exacerbation (principal); J30.89 Other allergic rhinitis; R07.81 Pleurodynia
CPT/HCPCS: 99214

== ENCOUNTER → 2024-04-23 10:22 | Outpatient (BNVA) | payer OTHER, SELFPAY | PROVIDERS: PCP Internal Medicine; Visit Provider Nurse Practitioner Family | DX: J45.901 Unspecified asthma with (acute) exacerbation (principal); J30.89 Other allergic rhinitis; R07.81 Pleurodynia; Z79.899 Other long term (current) drug therapy | CPT/HCPCS: 99212 ==

== ENCOUNTER 2024-04-25 10:39 | Outpatient (AMB) | payer OTHER, SELFPAY ==
--- NOTE | 2024-04-25 05:23 | A.OFFVIS_ITS ---
Vital Signs 04/25/24 10:45 Height 5 ft 2 in Weight 164 lb BMI 30.0 BP 114/72 Blood Pressure Location Rt brachial Position Sitting Pulse 85 Pulse Source Pulse Oximeter Intake Visit Reasons: DM pump/CONFIRMED Intake Note: Patient presents today to re-establish treatment for Type 2 Diabetes Mellitus: Last Diabetic eye exam was on: DUE Last Podiatry exam was on: Does not see a Police Judge Most recent HbA1c: 7.4% 04/17/2024 Random Glucose- 164 mg/dL, Today Case Management Manager Required: Yes Case Management Manager Language: Systems Architect Services: Case Management Manager Present Case Management Manager Name: NACHO Bruno/KI COLLINS Information Interpreted: non-clinical & clinical Accompanied by: Self / Same As Patient Allergies Penicillins Allergy (Mild, Verified 04/23/24 10:39) RASH/DYSPNEA metformin Adverse Reaction (Intermediate, Verified 04/23/24 10:39) stomach upset HPI Comments Details: Patient is a 58 year old female with DM type 2 diagnosed around 2004 who presents for management of diabetes. She was last seen by myself on 03/28/24 at which time she came in with her pump not functioning due to lack of pairing with sensor. She was reeducated to always have back up glucometer and to enter glucose numbers every 4 hours to ensure ilet pump was working. A1C 7.4% 04/17/24 down from pre pump 8.3% on 12/18/2023. Past medical history: Diabetes type 2, hypertension, hyperlipidemia, obesity, gastric ulcer and diverticulosis Micro and macrovascular complications: +neuropathy Previous intolerance to medications: Trulicity and Mounjaro due to abdominal pain causing irritationInvokana Diabetes medications: Ilet insulin pump pioglitazone 30 mg Invokana 100mg Mounjaro weekly Today her sensors again not paired with her pump. She verbally tells me that her blood sugars have been 130 in the morning when she wakes up in 150s later in the day. Last night when she was out of insulin her sugars did run to 300 but are now in the office down to 150 Hypoglycemia: infrequently Hyperglycemia: Had hyperglycemia with steroid use and yesterday when she was off her pump. 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 Ophthalmology evaluation: 10/2023 -cataract surgery in 01/2024 [facility] Medical History Ear discomfort Palpitations Overweight Type 2 diabetes mellitus with diabetic polyneuropathy B12 deficiency DM2 (diabetes mellitus, type 2) Tubular adenoma Moderate recurrent major depression Dyslipidemia Umbilical hernia Edema Arthritis Ear pain roasterman (current) use of insulin Pernicious anemia Hearing loss Insomnia Depression with anxiety Moderate asthma Essential hypertension Polyarthralgia GERD (gastroesophageal reflux disease) Diabetes Hearing loss Surgical History History of cholecystectomy History of umbilical hernia repair History of foot surgery History of carpal tunnel release History of surgery on arm History of endometrial ablation History of tubal ligation Family History Mother Breast cancer Paternal Grandmother Breast cancer Brother Colon cancer Family/Other FH: mental illness Mental health disorder Father CAD (coronary artery disease) Social History Household Members: Children Housing: Apartment Are you a primary direct care staffer to a significant other at home: No Do you presently have visiting nurse or other home services: Yes (LABELER) Alcohol intake: never Patient Tobacco Use Status: Never used Tobacco e-Cigarette/Vaping Use: Never Used Second Hand Smoke Exposure: No service: No Current occupational status: disabled Current occupation: Right hand dominate Cognitive needs: No Hearing needs: No Vision needs: Yes Female Reproductive History Menstrual Age of Menarche: 11 Physical Exam Vital Signs: Last Vital Signs Pulse 85 04/25/24 10:45 BP 114/72 04/25/24 10:45 BMI result Body Mass Index 30.0 Const Other: Absence of Cushingoid features. Absence of acromegalic features. Neck exam reveals nl size thyroid about 15 gms. No thyroid nodules palpable. No carotid bruits present. Lungs CTA. Heart S1 S2, Reg R/R. No M/R G. Skin exam reveals absence of vitiligo or acanthosis nigricans. No edema Visual exam of foot performed. No ulcerations or open lesions. No inter digit maceration or fissuring. No onychomycosis, no callouses. Sensation diminished to monofilament exam. Vibratory sensation is diminished with 128 Hz tuning fork. Quality Reporting (2019) Adult ([facility] 138/08/24/68) Smoking risk assessment performed?: Yes Patient Tobacco Use Status: Never used Tobacco Results Reviewed Results Reviewed: Laboratory Last Values Glucose (Clinic) 164 mg/dL (60-115) H 04/25/24 10:47 Assessment & Plan Assessment & Plan (1) Type 2 diabetes mellitus with diabetic polyneuropathy: Code(s): E11.42 - Type 2 diabetes mellitus with diabetic polyneuropathy Category: Medical Qualifiers: Diabetes mellitus remote computer terminal operator insulin use: with remote computer terminal operator use Qualified Code(s): E11.42 - Type 2 diabetes mellitus with diabetic polyneuropathy; Z79.4 - detention (current) use of insulin Plan: 58-year-old type 2 diabetic with polyneuropathy on a islet insulin pump, Invokana, Mounjaro and pioglitazone with a recent A1c of 7.4% on 04/17/2024. Her numbers have improved since being on the pump. She needs additional education and she will see the educator in 3 weeks' time and myself in 3 months. Using a medical file clerk for interpretation we reviewed Know what your pump failure backup plan is. Always keepsupplies for manual injections and insulin, emergency supplies ketone strips, and rules for testing for ketones, patient st ates he/she knows the rules for testing for ketones and how to manually calculate correction in mealtime boluses in case of pump failure Patient understands the basic concepts of pump therapy, how to give insulin for meals and snacks. She could use review on troubleshooting for hyper and hypoglycemia. I am not sure she fully understood the concept ketone testing. She was asked to call our office if she did not receive supplies for ketone test strips. Additionally she was asked to always have insulin and pump supplies on hand and a functioning glucometer. In the event her pump is not pared with a her sensor she would need to check her sugar every 4 hours. A prescription for test strips and lancets was sent a The patient had an opportunity to ask questions regarding treatment plan. The patient expressed understanding and agreement with the above treatment plan. The patient is aware they should contact our office by phone for worsening glucose readings or for any low blood sugars which may warrant a change in diabetes medication. Compliance is encouraged with medications and any followup testing/consults which may have been ordered. (2) Peripheral Vascular Disease: Code(s): I73.9 - Peripheral vascular disease, unspecified Plan: r/o check rd per [place] diabetes [employer] recommendations Orders: Orders US RD complete Today I73.9 - Peripheral vascular disease, unspecified Referrals Podiatry Referral E11.42 - Type 2 diabetes mellitus with diabetic polyneuropathy, Z79.4 - roasterman (current) use of insulin Medications: Changed From lancets (FreeStyle Lancets) 4 times a day 200 ea 11RF E11.49 - Type 2 diabetes mellitus with other diabetic neurological complication To lancets (FreeStyle Lancets) every 4 hours prn dispense as 32 gauge if avil 100 ea 11RF E11.49 - Type 2 diabetes mellitus with other diabetic neurological complication Refilled insulin lispro (Humalog U-100 Insulin) up to 45 units per day via pump use as directed; 30 days 10 mL 11RF acetone (urine) test (Ketone Urine Test strips) As directed 50 ea 5RF blood sugar diagnostic (FreeStyle Lite Strips) As directed four times a day 150 ea 11RF E11.49 - Type 2 diabetes mellitus with other diabetic neurological complication Patient Instructions: The patient was counseled to achieve a target A1C of 7% (154 avg). Fasting blood sugars should be 90-130 in the morning and less than 180 two hours after meals. Reviewed the relationship between poor diabetic control and the development of complications. Wear closed toe shoes, never walk barefooted and inspect the feet daily. For any signs of infection or open wound patient you should notify your PCP or go to urgent care/ER. The patient was counseled to always carry a source of sugar and on the rule of 15's: Take 3 glucose tablets and repeat again in 15 minutes if blood sugar is not in normal range. Continue to repeat every 15 minutes until blood sugar is normal. Symptoms of DKA (diabetic ketoacidosis): early: frequent urination, dry mouth, fatigue, feeling ill, severe symptoms: ketones in the urine, abdominal pain, nausea, vomiting and weakness. It is important to hydrate with sugar free liquids every 15-30 minutes and bring the sugars down to normal levels. If you are moderate or severe with ketones or unable to bring glucose to less than 200, go to the emergency room. Troubleshooting after starting new pod or inserting new insulin set: Occlusion, adhesive tape sensitivity, redness Check BG 2 hours after site change Safety information: Importance of a backup plan, for manual injections, proper prescriptions and emergency supplies ketone strips, and rules for testing for ketones Coding Level of Care Code Est Pt Level 4 (39005) Complex EM visit Add On G2211 Diagnoses Type 2 diabetes mellitus with diabetic polyneuropathy, with long-term current use of insulin E11.42; Z79.4 Diabetes mellitus mcc insulin use: with remote computer terminal operator use Peripheral Vascular Disease I73.9 Time Spent (min) 40 Comment Time spent reviewing labs/provider notes, face to face, chart doc
[2024-04-25 10:45] VITALS: BP 114/72; PULSE 85
[2024-04-25 10:54] LABS: Glucose, Whole Blood 164 mg/dL (60-115)
== END 2024-04-25 11:13 | disposition home or self-care (01) ==
PROVIDERS: PCP Student in an Organized Health Care Education/Training Program; Visit Provider Nurse Practitioner Adult Health
DX: E11.42 Type 2 diabetes mellitus with diabetic polyneuropathy (principal); Z79.4 Long term (current) use of insulin; I73.9 Peripheral vascular disease, unspecified
CPT/HCPCS: 99214; G2211

== ENCOUNTER → 2024-04-25 10:39 | Outpatient (BNVA) | payer OTHER, SELFPAY | PROVIDERS: PCP Student in an Organized Health Care Education/Training Program; Visit Provider Nurse Practitioner Adult Health | DX: E11.42 Type 2 diabetes mellitus with diabetic polyneuropathy (principal); E11.51 Type 2 diabetes mellitus with diabetic peripheral angiopathy without gangrene; Z96.41 Presence of insulin pump (external) (internal); Z79.4 Long term (current) use of insulin | CPT/HCPCS: 82947; 99212 ==

== ENCOUNTER 2024-05-13 13:39 | Outpatient (REF) | payer OTHER, SELFPAY ==
--- NOTE | ~2024-05-13 | US_ITS ---
EXAMINATION: NONINVASIVE ASSESSMENT OF THE ARTERIES OF BOTH LOWER EXTREMITIES CLINICAL INFORMATION: Peripheral vascular disease. COMPARISON: None available. TECHNIQUE: Segmental ankle pulse volume recording, pressure measurement at the ankle and ankle brachial indices were obtained of the lower extremity arterial system bilaterally. This study was performed at rest only. FINDINGS: a) AT REST: 1. The ankle-brachial indices are: Right 1.14 and left 1.18. >0.97-1.25 = normal - no significant arterial disease. 0.75-0.96 = mild peripheral arterial disease. 0.5-0.74 = moderate peripheral arterial disease. <0.50 = severe peripheral arterial disease. 2. Segmental pressure at ankle: Normal. 3. PVR waveform at ankle: Normal. US/US ALIYAH complete IMPRESSION: Normal ABIs bilaterally. Electronically signed by: Mich Nicole MD 05/14/2024 11:38 AM NAOMI
== END 2024-05-13 13:40 | disposition home or self-care (01) ==
LOC: HO.US 13:39
PROVIDERS: PCP Internal Medicine; Visit Provider Nurse Practitioner Adult Health
DX: I73.9 Peripheral vascular disease, unspecified (principal)
CPT/HCPCS: 93923

== ENCOUNTER 2024-05-27 13:29 | Outpatient (AMB) | payer OTHER, SELFPAY ==
[2024-05-27 13:40] VITALS: BP 112/56; PULSE 76; O2SAT 97; BMI 30.9
--- NOTE | 2024-05-27 13:40 | A.OFFVIS_ITS ---
Vital Signs 05/27/24 13:40 Height 5 ft 2 in Weight 168 lb 13.985 oz BMI 30.9 BP 112/56 L Blood Pressure Location Rt brachial Position Sitting Pulse 76 Pulse Source Pulse Oximeter Pulse Oximetry (%) 97 Oxygen Delivery Method Room Air Intake Visit Reasons: PT REQ APPOINTMENT Intake Note: Relevant Flags or Indicators ? Requires Classroom Technology Technician? Db Pak presents in office today for a scheduled FUV to re-establish care. CC; No recent labs, diagnostics, or med orders placed. ?Pt last seen as of 2022. Relevant GI Sx as reported per pt? Fecal abnormalities o?? Discolored? Pt has noted minor amounts of hematochezia/melena. o?? Constipation ? Abdominal Pain - Epigastric, as well as LLQ. ? Bloating ? Abdominal distention ? Hx of any recent surgeries? None Classroom Technology Technician Required: Yes Classroom Technology Technician Services: Classroom Technology Technician Present Classroom Technology Technician Name: [id number] Adolph Information Interpreted: non-clinical & clinical Accompanied by: Self / Same As Patient Allergies Penicillins Allergy (Mild, Verified 05/27/24 14:27) RASH/DYSPNEA metformin Adverse Reaction (Intermediate, Verified 05/27/24 14:27) stomach upset HPI HPI PT REQ APPOINTMENT: Details: LAST VISIT: GERD (gastroesophageal reflux disease) Postprandial abdominal bloating IBS (irritable bowel syndrome) Chronic idiopathic constipation Plan Will refill Linzess. Patient was encouraged to increase fluid intake and activity to promote better bowel motility. Will refill pantoprazole and famotidine. Patient was also encouraged to avoid dietary triggers and late night snacking. Staying upright for minimum 3 hours after meals discussed with patient. Patient will return in 6 months, sooner on as needed basis. Patient will call our office if she will have any GI concerning symptoms. We will discuss going for colonoscopy next visit. Patient is agreeable to this plan and verbalizes understanding of instructions. She was given the opportunity to ask questions and all questions answered. ? Thank you for allowing me to participate in her care Medications Refilled linaclotide (Linzess) 290 mcg PO QAM 30 caps 4RF K59.00 pantoprazole take one tablet half an hour before breakfast 40 mg PO DAILY 90 tabs 2RF K21.9 famotidine (Pepcid) 20 mg PO BEDTIME 90 tabs 3RF K21.9 TODAY'S VISIT Patient is here today for follow-up. Patient missed her 6 months follow-up as she states that she was not feeling good. Patient reports that she continues to have a abdominal pain just above her umbilicus. History of umbilical hernia in the past. Patient also reports to have a epigastric pain postprandially and abdominal bloating. Patient states that she takes Linzess, however she continues to sometimes be constipated and not able to have a bowel movement daily. Patient is taking pantoprazole in the morning and famotidine at bedtime. Her symptoms are worse towards the end of the day. Trouble swallowing as well. Patient reports trouble swallowing solids no problem swallowing liquids. Patient denies melena, hematochezia, unintentional weight loss or ribbon like stools. Patient had colonoscopy and upper endoscopy in 2020 recommendation was made for 3-5 years follow-up. Patient reports to me that she has been having increased shortness of breath and chest pressure. Also lower extremity edema. Patient reports that she is not eating salt does not add salt when she cooks her meals. 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 Pernicious anemia Hearing loss Insomnia Depression with anxiety Moderate asthma Essential hypertension Polyarthralgia GERD (gastroesophageal reflux disease) Diabetes Hearing loss Surgical History History of cholecystectomy History of umbilical hernia repair History of foot surgery History of carpal tunnel release History of surgery on arm History of endometrial ablation History of tubal ligation Family History Mother Breast cancer Paternal Grandmother Breast cancer Brother Colon cancer Family/Other FH: mental illness Mental health disorder Father CAD (coronary artery disease) Social History Household Members: Children Housing: Apartment Are you a primary critical care paramedic to a significant other at home: No Do you presently have visiting nurse or other home services: Yes (BUSINESS ASSISTANT) Alcohol intake: never Patient Tobacco Use Status: Never used Tobacco e-Cigarette/Vaping Use: Never Used Second Hand Smoke Exposure: No service: No Current occupational status: disabled Current occupation: Right hand dominate Cognitive needs: No Hearing needs: No Vision needs: Yes Female Reproductive History Menstrual Age of Menarche: 11 Review of Systems Const Denies weight gain and Denies weight loss ENT Reports no additional complaints, Denies dysphagia and Denies odynophagia Card Reports no additional complaints Resp Reports no additional complaints GI Reports abdominal pain (LLQ), Denies belching, Denies melena, Reports bloating, Denies change in bowel habits, Reports constipation, Denies dysphagia, Denies excessive flatus, Reports dyspepsia, Reports heartburn, Denies diarrhea, Denies loose stools, Denies nausea, Denies odynophagia and Denies vomiting Musc Reports no additional complaints Neuro Reports no additional complaints Psych Reports no additional complaints Endo Reports no additional complaints Physical Exam Vital Signs: Last Vital Signs Pulse 76 05/27/24 13:40 BP 112/56 L 05/27/24 13:40 Pulse Ox 97 05/27/24 13:40 Oxygen Delivery Method Room Air 05/27/24 13:40 BMI result Body Mass Index 30.9 Const General: healthy appearing, no acute distress and well developed Nutritional Appearance: well nourished Orientation/consciousness: patient oriented x3 Resp Effort & Inspection: normal respiratory effort, able to speak in complete sentences, no tracheal deviation and symmetric chest movement Auscultation: clear to auscultation bilaterally Cardio Rate: regular rate GI Other: Old surgical scars Inspection: No distended and Yes visible herniation Palpation (GI): Soft to palpation, not firm, nontender and No hepatosplenomegaly present Auscultation: normal bowel sounds General: Yes no CVA tenderness Back/Spine/Pelvis Back: no CVA tenderness Skin General skin exam: elasticity normal, turgor normal and dry skin Neuro General: patient oriented x3 Psych Appearance: grossly normal Mental Status: mental status grossly normal Quality Reporting (2019) Adult ([facility] 13808/24/68) Smoking risk assessment performed?: Yes Patient Tobacco Use Status: Never used Tobacco Assessment & Plan Assessment & Plan (1) GERD (gastroesophageal reflux disease): Code(s): K21.9 - Gastro-esophageal reflux disease without esophagitis Category: Medical Qualifiers: Esophagitis presence: without esophagitis Qualified Code(s): K21.9 - Gastro-esophageal reflux disease without esophagitis (2) Postprandial abdominal bloating: Code(s): R14.0 - Abdominal distension (gaseous) (3) IBS (irritable bowel syndrome): Code(s): K58.9 - Irritable bowel syndrome, unspecified Qualifiers: Irritable bowel syndrome type: with constipation Qualified Code(s): K58.1 - Irritable bowel syndrome with constipation (4) Chronic idiopathic constipation: Code(s): K59.04 - Chronic idiopathic constipation Plan Patient will be sent for upper GI with barium swallow to check for hernia, esophageal dysmotility, strictures. Will change her treatment to Nexium. Patient does reports occasional shortness of breath and chest pain as well as bilateral lower extremity edema towards the end of the day, referral to Cardiology sent. Patient also reports umbilical hernia reoccurrence. Patient had umbilical hernia repair 6 years ago and [facility]. Referral to General surgery for possible umbilical hernia repair. Patient will continue to take Linzess. Increase fluid intake and activity to promote better bowel motility. Patient will follow-up in 3 months, sooner on as needed basis. She is agreeable to this plan and verbalizes understanding of instructions. She was given the opportunity to ask questions and all questions answered. Thank you for allowing me to participate in her care Orders: Orders [place] upper GI w Ba Swallow 05/27/24 K21.9 - Gastro-esophageal reflux disease without esophagitis Referrals Cardiology Referral Z01.810 - Encounter for preprocedural cardiovascular examination, R07.9 - Chest pain, unspecified, E11.65 - Type 2 diabetes mellitus with hyperglycemia General Surgery Referral K42.9 - Umbilical hernia without obstruction or gangrene Medications: New esomeprazole magnesium (Nexium) 40 mg PO DAILY 30 caps 5RF K21.9 - Gastro- esophageal reflux disease without esophagitis Refilled famotidine (Pepcid) 20 mg PO BEDTIME 90 tabs 3RF K21.9 - Gastro-esophageal reflux disease without esophagitis Discontinued pantoprazole take one tablet half an hour before breakfast Discontinued Reason: Doctor's Order 40 mg PO DAILY 90 tabs 2RF K21.9 - Gastro-esophageal reflux disease without esophagitis Coding Level of Care Code Est Pt Level 4 (09843) Complex EM visit Add On G2211 Diagnoses Gastroesophageal reflux disease without esophagitis K21.9 Esophagitis presence: without esophagitis Postprandial abdominal bloating R14.0 Irritable bowel syndrome with constipation K58.1 Irritable bowel syndrome type: with constipation Chronic idiopathic constipation K59.04 Time Spent (min) 35 Comment 20 minutes spent with patient and additional 15 minutes spent reviewing her records
== END 2024-05-27 14:25 | disposition home or self-care (01) ==
PROVIDERS: PCP Internal Medicine; Visit Provider Nurse Practitioner Family
DX: K21.9 Gastro-esophageal reflux disease without esophagitis (principal); R14.0 Abdominal distension (gaseous); K58.1 Irritable bowel syndrome with constipation; K59.04 Chronic idiopathic constipation
CPT/HCPCS: 99214; G2211

== ENCOUNTER → 2024-05-27 13:29 | Outpatient (BNVA) | payer OTHER, SELFPAY | PROVIDERS: PCP Internal Medicine; Visit Provider Nurse Practitioner Family | DX: K42.9 Umbilical hernia without obstruction or gangrene (principal); K21.9 Gastro-esophageal reflux disease without esophagitis; R14.0 Abdominal distension (gaseous); K58.1 Irritable bowel syndrome with constipation; K59.04 Chronic idiopathic constipation | CPT/HCPCS: 99202; 99212 ==

== ENCOUNTER 2024-05-27 14:28 | Outpatient (AMB) | payer OTHER, SELFPAY ==
[2024-05-27 14:24] VITALS: BP 112/56; PULSE 76; BMI 30.7
--- NOTE | 2024-05-27 14:24 | MHC.OFFVIS ---
Vital Signs 05/27/24 14:24 Height 5 ft 2 in Weight 168 lb BMI 30.7 BP 112/56 L Blood Pressure Location Rt brachial Position Sitting Pulse 76 Intake Visit Reasons: Hernia Intake Note: Patient referred by Shweta ABRAHAM for hernia on Rt abdominal area. Patient c/o: pain next to rt umbilical area. Hx of umbilical hernia repair many yrs ago. Science Teacher Required: Yes Science Teacher Name: Carolhira Accompanied by: Spouse Allergies Penicillins Allergy (Mild, Verified 05/27/24 14:27) RASH/DYSPNEA metformin Adverse Reaction (Intermediate, Verified 05/27/24 14:27) stomach upset HPI Comments Details: Patient was referred from earlier today seen in GI clinic for a symptomatic umbilical hernia. It has Been bothering the patient for for a few months time. She would like to have it repaired. Patient had an umbilical hernia repair at this site roughly 6 years ago at [facility]. She is otherwise tolerating a diet. She is having regular bowel habits although she has constipation issues. She does occasional strenuous activities. Chart was reviewed and patient evaluate. Patient was a plethora of intercurrent medical problems COUNTS INCLUDE 234 BEDS AT THE [facility] Medical History Ear discomfort Palpitations Overweight Type 2 diabetes mellitus with diabetic polyneuropathy B12 deficiency DM2 (diabetes mellitus, type 2) Tubular adenoma Moderate recurrent major depression Dyslipidemia Umbilical hernia Edema Arthritis Ear pain FPC (current) use of insulin Pernicious anemia Hearing loss Insomnia Depression with anxiety Moderate asthma Essential hypertension Polyarthralgia GERD (gastroesophageal reflux disease) Diabetes Hearing loss Surgical History History of cholecystectomy History of umbilical hernia repair History of foot surgery History of carpal tunnel release History of surgery on arm History of endometrial ablation History of tubal ligation Family History Mother Breast cancer Paternal Grandmother Breast cancer Brother Colon cancer Family/Other FH: mental illness Mental health disorder Father CAD (coronary artery disease) Social History Household Members: Children Housing: Apartment Are you a primary grounds caretaker to a significant other at home: No Do 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 presently 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 Bilateral groin exam negative. Abdomen moderately corpulent. Patient has an infraumbilical incision. There is a roughly 3 cm reducible recurrent umbilical hernia. Quality Reporting (2019) Adult ([facility] ) Smoking risk assessment performed?: Yes Patient Tobacco Use Status: Never used Tobacco Assessment & Plan Assessment & Plan (1) Recurrent umbilical hernia: Code(s): K42.9 - Umbilical hernia without obstruction or gangrene Category: Surgical Plan Risks, benefits, and alternatives of open recurrent umbilical hernia repair with mesh were reviewed with the patient and included but not limited to bleeding, infection, recurrence, numbness, pain, scarring the patient wished to proceed. All questions answered. Arrangements were made for this. Coding Level of Care Code New Pt Level 5 (88742) Diagnoses Recurrent umbilical hernia K42.9
== END 2024-05-27 14:39 | disposition home or self-care (01) ==
LOC: HO.HGS 14:28
PROVIDERS: PCP Internal Medicine; Referring Provider Nurse Practitioner Family; Visit Provider Surgery
DX: K42.9 Umbilical hernia without obstruction or gangrene (principal)
CPT/HCPCS: 99204

== ENCOUNTER 2024-05-29 14:07 | Outpatient (REF) | payer OTHER, SELFPAY ==
--- NOTE | ~2024-05-29 | CT_ITS ---
EXAMINATION: CT CHEST WITHOUT CONTRAST CLINICAL INFORMATION: Pleurodynia. COMPARISON: Chest radiograph dated 03/18/2024; CTA chest dated 05/20/2010. TECHNIQUE: Multidetector volumetric CT imaging of the chest was done. Axial MIP volume rendering provided. Sagittal and coronal reformatted images were obtained. This CT examination was performed using dose optimization techniques as appropriate, variously including the following: *Automated exposure control *Adjustment of mA and/or kV according to patient size (this includes techniques or standardized protocols for targeted exams where dose is matched to indication/reason for exam; i.e. extremities or head) *Use of iterative reconstruction technique DLP: 122 mGy-cm FINDINGS: MEDICAL DIAGNOSTIC RADIOGRAPHER: The lungs are symmetrically well expanded and grossly clear. LUNGS: There is mild biapical pleural and parenchymal scarring. No mass, nodule, infiltrate or groundglass opacity is seen. There is no generalized increase in peripheral interlobular septal markings. No bleb or bullous formation is seen. Centrally within the left upper lobe (5:178), a tiny endobronchial density is seen, likely a focus of inspissated mucus. There is no generalized small airway thickening. The central airways appear patent. MEDIASTINUM: The mediastinum is normal. CORONARY ARTERY CALCIFICATION: None visualized on this study. PLEURA: There is no pleural effusion. No pleural mass or thickening. AXILLA: No lymphadenopathy. UPPER ABDOMEN: The gallbladder is surgically absent. Otherwise, unremarkable. OSSEOUS STRUCTURES: There is multi-level lower cervical, thoracic and upper lumbar spondylosis. No acute or aggressive osseous finding is noted. CT/CT chest wo IV con IMPRESSION: Unremarkable examination. Fleischner guidelines were followed. Electronically signed by: Gilbert Wilson MD 05/29/2024 07:43 PM [facility]
== END 2024-05-29 14:08 | disposition home or self-care (01) ==
LOC: HO.CT 14:07
PROVIDERS: PCP Internal Medicine; Visit Provider Nurse Practitioner Family
DX: R07.81 Pleurodynia (principal); R05.9 Cough, unspecified
CPT/HCPCS: 71250

== ENCOUNTER 2024-06-17 10:33 | Outpatient (AMB) | payer OTHER, SELFPAY ==
--- NOTE | 2024-06-17 10:34 | MHC.OFFVIS ---
Vital Signs 06/17/24 10:35 Height 5 ft 2 in Weight 166 lb 7.184 oz BMI 30.4 BP 118/60 Blood Pressure Location Lt brachial Position Sitting Pulse 74 Pulse Source Pulse Oximeter Pulse Oximetry (%) 99 Oxygen Delivery Method Room Air Intake Visit Reasons: PreopCLR- repair umbilical hernia w/mesh Jeet Outpatient Coder Required: Yes Outpatient Coder Language: School Social Worker Name: Marcella Douglass OA Allergies Penicillins Allergy (Mild, Verified 06/17/24 10:40) RASH/DYSPNEA metformin Adverse Reaction (Intermediate, Verified 06/17/24 10:40) stomach upset HPI HPI PreopCLR- repair umbilical hernia w/mesh Rocco: Details: Mellisa is a pleasant 58 year old female, never smoker, with underlying asthma, GERD, DMII, and HTN. At baseline, she has been well controlled on Advair 230 mcg and albuterol MDI. She was last treated in April for URI with levaquin, azithromycin and prednisone. She reports since then symptoms have been well controlled, denies cough, wheezing, chest tightness or dyspnea. She denies any visits to urgent care or hospitalizations since the last visit. She denies prior need for supplemental oxygen. Today she presents to review chest CT and for preoperative pulmonary evaluation for proposed umbilical hernia repair with Dr. Hernández, not scheduled yet. 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 Pernicious anemia Hearing loss Insomnia Depression with anxiety Moderate asthma Essential hypertension Polyarthralgia GERD (gastroesophageal reflux disease) Diabetes Hearing loss Surgical History History of cholecystectomy History of umbilical hernia repair History of foot surgery History of carpal tunnel release History of surgery on arm History of endometrial ablation History of tubal ligation Family History Mother Breast cancer Paternal Grandmother Breast cancer Brother Colon cancer Family/Other FH: mental illness Mental health disorder Father CAD (coronary artery disease) Social History Household Members: Children Housing: Apartment Are you a primary school child care attendant to a significant other at home: No Do 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) Alcohol intake: never Patient Tobacco Use Status: Never used Tobacco e-Cigarette/Vaping Use: Never Used Second Hand Smoke Exposure: No service: No Current occupational status: disabled Current occupation: Right hand dominate Cognitive needs: No Hearing needs: No Vision needs: Yes Female Reproductive History Menstrual Age of Menarche: 11 Review of Systems Const Denies chills, Denies excessive sweating, Denies fever(s), Denies headache(s) and Denies night sweats Eyes Denies dry eyes, Denies irritation and Denies itchy eyes ENT Reports Normal hearing present, Denies headache(s), Denies nasal congestion, Denies nasal discharge, Denies post nasal drip and Denies sore throat Card Denies chest pain, Denies chest pain at rest, Denies chest pain with activity, Denies claudication, Denies leg edema, Denies dyspnea, Denies dyspnea on exertion, Denies orthopnea and Denies paroxysmal nocturnal dyspnea Resp Denies chest congestion, Denies cough, Denies excessive phlegm production, Denies pain on inspiration, Denies pain with cough, Denies dyspnea, Denies dyspnea on exertion, Denies stridor and Denies wheezing Musc Denies myalgias Neuro Reports Normal hearing present and Denies headache(s) Endo Denies excessive sweating Kranthi/Lymph Denies lymphadenopathy Aller/Immun Denies itchy eyes, Denies seasonal rhinorrhea and Denies wheezing Physical Exam Vital Signs: Last Vital Signs Pulse 74 06/17/24 10:35 BP 118/60 06/17/24 10:35 Pulse Ox 99 06/17/24 10:35 Oxygen Delivery Method Room Air 06/17/24 10:35 BMI result Body Mass Index 30.4 Const General: cooperative, healthy appearing, comfortable, no acute distress, well developed and alert Nutritional Appearance: obese Orientation/consciousness: patient oriented x3 Limitations: no limitations HEENT Head: Yes normal to inspection, Yes normocephalic and Yes atraumatic Ears: hearing grossly normal bilaterally and external ears normal Eyes General: appearance normal, both eyes and all related structures Eyelids: Yes eyelids normal Sclerae: sclerae normal EOM: EOMs intact bilaterally Neck Neck: Yes normal visual inspection and Yes no lymphadenopathy Lymphatic: no lymphadenopathy noted Chest Chest palpation & inspection: normal inspection of the chest Resp Effort & Inspection: normal respiratory effort, able to speak in complete sentences, no audible wheezes, no cough, no stridor, not tachypneic, no tripod positioning and no use of accessory muscles Auscultation: clear to auscultation bilaterally Cardio Jugular venous distension: no JVD Rate: regular rate Rhythm: regular rhythm Skin Other: warm, dry General skin exam: no rashes or lesions noted Neuro General: patient oriented x3 Cranial nerves: Yes Normal hearing present Cognition (Neuro): normal cognition Gait exam (Neuro): Normal gait present Extrem General: Yes normal to inspection, Yes capillary refill normal, Yes no clubbing, cyanosis or edema and Yes no pedal edema Psych Appearance: grossly normal and well kempt Speech and movement: Normal speech and movement present and Clear speech present Affect: normal affect Attitude: cooperative Thought process: Normal thought process present Thought content: Normal thought content present Insight: Good insight present (Psych) Judgement: Good judgement present (Psych) Quality Reporting (2019) Adult ([facility] 138/08/24/68) Smoking risk assessment performed?: Yes Patient Tobacco Use Status: Never used Tobacco Results Reviewed Results Reviewed: [place] [id number] CT Scan Report Signed Patient: Mellisa Akbar MR#: [id number] : 1965 Acct:[id number] Age/Sex: 58 / F ADM Date: 05/29/24 Loc: HO.CT Attending Dr: Pearl Bui NP Ordering Physician: Pearl Bui NP Date of Service: 05/29/24 Procedure(s): CT chest wo IV con Accession Number(s): [id number] cc: Norma Lopes MD; Paerl Bui NP~ EXAMINATION: CT CHEST WITHOUT CONTRAST CLINICAL INFORMATION: Pleurodynia. COMPARISON: Chest radiograph dated 03/18/2024; CTA chest dated 05/20/2010. TECHNIQUE: Multidetector volumetric CT imaging of the chest was done. Axial MIP volume rendering provided. Sagittal and coronal reformatted images were obtained. This CT examination was performed using dose optimization techniques as appropriate, variously including the following: *Automated exposure control *Adjustment of mA and/or kV according to patient size (this includes techniques or standardized protocols for targeted exams where dose is matched to indication/reason for exam; i.e. extremities or head) *Use of iterative reconstruction technique DLP: 122 mGy-cm FINDINGS: HYDROLOGICAL TECHNICAL OFFICER: The lungs are symmetrically well expanded and grossly clear. LUNGS: There is mild biapical pleural and parenchymal scarring. No mass, nodule, infiltrate or groundglass opacity is seen. There is no generalized increase in peripheral interlobular septal markings. No bleb or bullous formation is seen. Centrally within the left upper lobe (5:178), a tiny endobronchial density is seen, likely a focus of inspissated mucus. There is no generalized small airway thickening. The central airways appear patent. MEDIASTINUM: The mediastinum is normal. CORONARY ARTERY CALCIFICATION: None visualized on this study. PLEURA: There is no pleural effusion. No pleural mass or thickening. AXILLA: No lymphadenopathy. UPPER ABDOMEN: The gallbladder is surgically absent. Otherwise, unremarkable. OSSEOUS STRUCTURES: There is multi-level lower cervical, thoracic and upper lumbar spondylosis. No acute or aggressive osseous finding is noted. CT/CT chest wo IV con IMPRESSION: Unremarkable examination. Fleischner guidelines were followed. Electronically signed by: Gilbert Wilson MD 05/29/2024 07:43 PM [facility] Dictated By: Gilbert Wilson MD Signed By: <Electronically signed by Gilbert Wilson MD in OV> 05/29/24 194 DD/ 1428 TD/TT: 05/29/24 1435 Deep Fat Cook Fry: FCO Assessment & Plan Assessment & Plan (1) Asthma: Code(s): J45.909 - Unspecified asthma, uncomplicated Category: Medical Qualifiers: Asthma complication type: with acute exacerbation Asthma persistence: unspecified Asthma severity: moderate Qualified Code(s): J45.901 - Unspecified asthma with (acute) exacerbation (2) Environmental and seasonal allergies: Code(s): J30.89 - Other allergic rhinitis Category: Medical Plan Mellisa reports good control of respiratory symptoms on current regimen, advised to continue. Reviewed chest CT which was unremarkable. Will send for PFT to further risk stratify for proposed hernia repair surgery. All questions were answered and patient is in agreement of plan. Will follow-up to review results or sooner if needed. Medications: Discontinued umeclidinium 62.5 mcg/actuation (Incruse Ellipta) Discontinued Reason: Insurance Denied 1 inh inhalation DAILY 30 ea 3RF fluticasone furoate-vilanterol 100-25 mcg/dose (Breo Ellipta) Discontinued Reason: Patient Completed Course 1 inh inhalation DAILY 60 ea 3RF Coding Level of Care Code Est Pt Level 4 (10705) Diagnoses Moderate asthma with acute exacerbation, unspecified whether persistent J45.901 Asthma complication type: with acute exacerbation Asthma persistence: unspecified Asthma severity: moderate Environmental and seasonal allergies J30.89
[2024-06-17 10:35] VITALS: BP 118/60; PULSE 74; O2SAT 99; BMI 30.4
== END 2024-06-17 11:20 | disposition home or self-care (01) ==
PROVIDERS: PCP Internal Medicine; Visit Provider Nurse Practitioner Family
DX: J45.901 Unspecified asthma with (acute) exacerbation (principal); J30.89 Other allergic rhinitis
CPT/HCPCS: 99214

== ENCOUNTER → 2024-06-17 10:33 | Outpatient (BNVA) | payer OTHER, SELFPAY | PROVIDERS: PCP Internal Medicine; Visit Provider Nurse Practitioner Family | DX: J45.901 Unspecified asthma with (acute) exacerbation (principal); J30.89 Other allergic rhinitis; Z79.899 Other long term (current) drug therapy | CPT/HCPCS: 99212 ==

== ENCOUNTER 2024-06-18 12:55 | Outpatient (AMB) | payer OTHER, SELFPAY ==
--- NOTE | 2024-06-18 13:00 | MHC.OFFVIS ---
Vital Signs 06/18/24 13:07 Height 5 ft 2 in Weight 166 lb BMI 30.4 BP 135/63 Blood Pressure Location Rt brachial Position Sitting Pulse 92 Intake Visit Reasons: Umbilical hernia Intake Note: Patient referred by Rosa ABRAHAM for umbilical hernia. Patient c/o: pain when bending, lifting. Reports hx of hernia repair at [facility] 7yrs ago. Supervisor Incising Required: Yes Supervisor Incising Name: Marlen Jolly NACHO Accompanied by: Self / Same As Patient Allergies Penicillins Allergy (Mild, Verified 06/18/24 13:03) RASH/DYSPNEA metformin Adverse Reaction (Intermediate, Verified 06/18/24 13:03) stomach upset HPI Comments Details: Patient was here for evaluation of a symptomatic recurrent umbilical hernia. She had this repaired at [facility] roughly 7 years ago and it has recurred. It is increasing in size, become more symptomatic. She would like to have repaired. She has no other GI issues or complaints. She is tolerating a diet. She has regular bowel habits. Chart was reviewed and patient evaluated. [facility] Medical History Ear discomfort Palpitations Overweight Type 2 diabetes mellitus with diabetic polyneuropathy B12 deficiency DM2 (diabetes mellitus, type 2) Tubular adenoma Moderate recurrent major depression Dyslipidemia Umbilical hernia Edema Arthritis Ear pain alf (current) use of insulin Pernicious anemia Hearing loss Insomnia Depression with anxiety Moderate asthma Essential hypertension Polyarthralgia GERD (gastroesophageal reflux disease) Diabetes Hearing loss Surgical History History of cholecystectomy History of umbilical hernia repair History of foot surgery History of carpal tunnel release History of surgery on arm History of endometrial ablation History of tubal ligation Family History Mother Breast cancer Paternal Grandmother Breast cancer Brother Colon cancer Family/Other FH: mental illness Mental health disorder Father CAD (coronary artery disease) Social History Household Members: Children Housing: Apartment Are you a primary home health aide caregiver to a significant other at home: No 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 Moderately corpulent abdomen. Bilateral groin exam negative. Patient was a 2 cm reducible recurrent umbilical hernia. Quality Reporting (2019) Adult ([facility] ) Smoking risk assessment performed?: Yes Patient Tobacco Use Status: Never used Tobacco Assessment & Plan Assessment & Plan (1) Recurrent umbilical hernia: Code(s): K42.9 - Umbilical hernia without obstruction or gangrene Category: Surgical Plan Risks, benefits, and alternatives of open umbilical hernia repair with mesh were reviewed with the patient included but not limited to bleeding, infection, recurrence, numbness, pain, scarring, wound dehiscence, seroma formation, bowel injury and the patient wishes to proceed. All questions answered. Arrangements were made for this on a day which is convenient for her. Coding Level of Care Code New Pt Level 5 (85721) Diagnoses Recurrent umbilical hernia K42.9
[2024-06-18 13:07] VITALS: BP 135/63; PULSE 92; BMI 30.4
== END 2024-06-18 13:22 | disposition home or self-care (01) ==
PROVIDERS: PCP Internal Medicine; Referring Provider Nurse Practitioner Family; Visit Provider Surgery
DX: K42.9 Umbilical hernia without obstruction or gangrene (principal)
CPT/HCPCS: 99214

== ENCOUNTER → 2024-06-18 12:55 | Outpatient (BNVA) | payer OTHER, SELFPAY | PROVIDERS: PCP Internal Medicine; Referring Provider Nurse Practitioner Family; Visit Provider Surgery | DX: K42.9 Umbilical hernia without obstruction or gangrene (principal) | CPT/HCPCS: 99212 ==

== ENCOUNTER 2024-06-19 15:54 | Outpatient (REF) | payer OTHER, SELFPAY ==
[2024-06-19 11:01] VITALS: PULSE 80; O2SAT 99
--- NOTE | 2024-06-19 15:59 | PFT_ITS ---
Flows: FEV1: 77 % of predicted at 1.81 L FVC: 81 % of predicted at 2.39 L FEV1/FVC: 76 % Bronchodilator response: Present in small to medium airways only Volumes: Total lung capacity: 83 % of predicted at 3.97 L Residual volume: 99 % of predicted at 1.58 L Slow vital capacity: 75 % of predicted at 2.39 L Expiratory reserve volume: 39 % of predicted at 0.30 L Diffusion capacity: Normal Impression: No obstructive or restrictive ventilatory defect. Bronchodilator response is present in small to medium airways only. Decreased expiratory reserve volume suggests extrathoracic restriction likely secondary to abdominal obesity. MTDD
== END 2024-06-19 15:55 | disposition home or self-care (01) ==
LOC: HO.RESP 15:54
PROVIDERS: PCP Internal Medicine; Visit Provider Nurse Practitioner Family
DX: J45.901 Unspecified asthma with (acute) exacerbation (principal)
CPT/HCPCS: 94010; 94640; 94727; 94729

== ENCOUNTER → 2024-06-19 15:59 | Outpatient (BNV) | payer OTHER, SELFPAY | PROVIDERS: PCP Internal Medicine; Visit Provider Internal Medicine Pulmonary Disease | DX: J45.901 Unspecified asthma with (acute) exacerbation (principal) | CPT/HCPCS: 94060; 94727; 94729 ==

== ENCOUNTER 2024-06-25 09:44 | Outpatient (AMB) | payer OTHER, SELFPAY ==
--- NOTE | 2024-06-25 09:47 | A.OFFVIS_ITS ---
Vital Signs 06/25/24 09:48 Height 5 ft 2 in Weight 166 lb 10.711 oz BMI 30.5 BP 116/66 Blood Pressure Location Lt brachial Position Sitting Pulse 79 Intake Visit Reasons: Preop/umbilical hernia/[place] Online Marketing Specialist Required: Yes Online Marketing Specialist Name: [place] [id number] Accompanied by: Self / Same As Patient Allergies Penicillins Allergy (Mild, Verified 06/18/24 13:03) RASH/DYSPNEA metformin Adverse Reaction (Intermediate, Verified 06/18/24 13:03) stomach upset Medication List - Last Reconciled 06/25/24 by Andres Hansen MD acetone (urine) test (Ketone Urine Test strips) As directed albuterol sulfate 2.5 mg (3 mL) inhalation Q4-6H PRN albuterol sulfate 90 mcg/actuation 2 puffs inhalation Q4-6H PRN atorvastatin 40 mg PO BEDTIME 90 days blood sugar diagnostic (FreeStyle Lite Strips) As directed four times a day blood-glucose meter (FreeStyle Lite Meter kit) use as directed to test blood sugar 4x per day blood-glucose meter,continuous (DexRaffstar G7 Horizontal Drill Operator) As directed blood-glucose sensor (Dexcom G7 Sensor device) As directed change every 10 days canagliflozin 100 mg PO DAILY 30 days cholecalciferol (vitamin D3) (Vitamin D3) 25 mcg PO DAILY 90 days cyanocobalamin (vitamin B-12) 500 mcg sublingual DAILY 90 days docusate sodium 100 mg PO BEDTIME esomeprazole magnesium (Nexium) 40 mg PO DAILY famotidine (Pepcid) 20 mg PO BEDTIME fluticasone propion-salmeterol 230-21 mcg/actuation (Advair HFA) 2 puffs inhalation BID fluticasone propionate 50 mcg/actuation (Flonase Allergy Relief) 1 spray intranasal DAILY guaifenesin ER (Mucinex) 600 mg PO BID 5 days heating pads As directed incontinence pad, liner, disp Use 1 pad twice a day insulin aspart U-100 (Novolog U-100 Insulin aspart) up to 90 units daily by pump subcutaneously use as directed; 90 days lancets (FreeStyle Lancets) every 4 hours prn dispense as 32 gauge if avil Lantus Solostar U-100 Insulin (insulin glargine) 42 units (0.42 mL) subcut DAILY 90 days NS lidocaine 5% 1 patch topical DAILY lidocaine HCl 2% 1 appl mucous membrane BID PRN 30 days linaclotide (Linzess) 290 mcg PO QAM lorazepam (Ativan) 1 mg PO ONCE PRN montelukast 10 mg PO DAILY nebulizer accessories NEBULIZER FACE MASK ADULT, USE DIRECTED nebulizers (AeroEclipse II Nebulizer) As directed pioglitazone 45 mg PO DAILY 90 days polyethylene glycol 3350 (Miralax) 17 grams PO DAILY 30 days prednisone 10 mg PO DIRECTED 8 days sertraline 50 mg PO DAILY PRN sertraline 100 mg PO DAILY PRN Shower Chair As directed silver sulfadiazine 1% (Silvadene) 1 appl topical DAILY 2 weeks simethicone 125 mg PO BID-QID PRN solifenacin (Vesicare) 5 mg PO DAILY 30 days tirzepatide (Mounjaro) mg subcut [toilet seat elevator As directed] zolpidem 5 mg PO BEDTIME PRN HPI Comments Details: Mellisa is here for consultation regarding shortness of breath, chest discomfort and she also needs preoperative assessment for hernia surgery. She is a diabetic on insulin pump. She states that she does get short of breath with activity. She also feels a nonspecific chest pressure again with activity. 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 She has previously had an exercise EKG which was unremarkable. She plans to go for umbilical hernia surgery as well and hence she is here for evaluation. [facility] Medical History Ear discomfort Palpitations Overweight Type 2 diabetes mellitus with diabetic polyneuropathy B12 deficiency DM2 (diabetes mellitus, type 2) Tubular adenoma Moderate recurrent major depression Dyslipidemia Umbilical hernia Edema Arthritis Ear pain group home (current) use of insulin Pernicious anemia Hearing loss Insomnia Depression with anxiety Moderate asthma Essential hypertension Polyarthralgia GERD (gastroesophageal reflux disease) Diabetes Hearing loss Surgical History History of cholecystectomy History of umbilical hernia repair History of foot surgery History of carpal tunnel release History of surgery on arm History of endometrial ablation History of tubal ligation Family History Mother Breast cancer Paternal Grandmother Breast cancer Brother Colon cancer Family/Other FH: mental illness Mental health disorder Father CAD (coronary artery disease) Social History Household Members: Children Housing: Apartment Are you a primary home care provider to a significant other at home: No Do you presently have visiting nurse or other home services: Yes ([employer]) Alcohol intake: never Patient Tobacco Use Status: Never used Tobacco e-Cigarette/Vaping Use: Never Used Second Hand Smoke Exposure: No service: No Current occupational status: disabled Current occupation: Right hand dominate Cognitive needs: No Hearing needs: No Vision needs: Yes Female Reproductive History Menstrual Age of Menarche: 11 Review of Systems Const Denies chills, Denies daytime sleepiness, Denies fatigue, Denies fever(s), Denies poor appetite, Denies snoring, Denies stops breathing during sleep, Denies weakness, Denies weight gain and Denies weight loss Eyes Denies loss of vision ENT Denies dizziness and Denies hearing loss Card Reports chest pain, Denies irregular heart rhythm, Denies claudication, Reports leg edema, Denies lightheadedness, Reports palpitations, Reports dyspnea on exertion and Denies orthopnea Resp Denies cough, Denies excessive phlegm production, Reports dyspnea on exertion, Denies snoring and Denies wheezing GI Denies abdominal pain, Denies hematochezia, Denies change in bowel habits, Denies nausea and Denies vomiting Denies urinary frequency and Denies dysuria Musc Denies arthralgias, Denies muscle weakness, Denies numbness and Denies other Skin/Breast Denies nail changes and Denies rash Neuro Denies Abnormal speech present, Denies dizziness, Denies loss of vision, Denies memory loss, Denies numbness and Denies weakness Psych Denies depression and Denies memory loss Endo Denies fatigue and Reports palpitations Kranthi/Lymph Denies easy bruising Aller/Immun Denies wheezing Physical Exam Vital Signs: Last Vital Signs Pulse 79 06/25/24 09:48 BP 116/66 06/25/24 09:48 BMI result Body Mass Index 30.5 Const General: comfortable and no acute distress Orientation/consciousness: patient oriented x3 HEENT Other: Unremarkable Head: Yes normal to inspection Neck Neck: Yes normal visual inspection Chest Chest palpation & inspection: normal inspection of the chest Resp Auscultation: clear to auscultation bilaterally Cardio Palpation: normal PMI Heart sounds: S1 normal heart sound present, S2 normal heart sound present, no gallops, no murmurs and no rubs GI Palpation (GI): Soft to palpation Back/Spine/Pelvis Other: unremarkable Skin General skin exam: no rashes or lesions noted Neuro General: patient oriented x3 Speech: No Abnormal speech present Extrem General: Yes normal to inspection Psych Mental Status: mental status grossly normal Office Procedures EKG Details: EKG with underlying sinus rhythm at 79/Min; rightward axis; no significant ST-T changes and otherwise unremarkable. [place]. [id number], Complete Quality Reporting (2019) Adult ([facility] ) Smoking risk assessment performed?: Yes Patient Tobacco Use Status: Never used Tobacco Assessment & Plan Assessment & Plan (1) Chest pain: Code(s): R07.9 - Chest pain, unspecified Category: Medical (2) SOB (shortness of breath): Code(s): R06.02 - Shortness of breath Category: Medical (3) Preoperative cardiovascular examination: Code(s): Z01.810 - Encounter for preprocedural cardiovascular examination Category: Medical Plan Baseline EKG unremarkable. Unclear if her symptoms are cardiogenic or if they are related to deconditioning. We will obtain an echocardiogram/stress test. Addendum for surgery to be made after review of the above. Orders: Orders CA echo transthoracic complete Today R06.02 - Shortness of breath CA echo stress exercise Today R07.2 - Precordial pain Coding Level of Care Code New Pt Level 4 (71699) Diagnoses Chest pain R07.9 SOB (shortness of breath) R06.02 Preoperative cardiovascular examination Z01.810 CPT Codes EKG - CPT: 85482-[id number], Complete ([id number])
[2024-06-25 09:48] VITALS: BP 116/66; PULSE 79; BMI 30.5
== END 2024-06-25 10:17 | disposition home or self-care (01) ==
PROVIDERS: PCP Internal Medicine; Visit Provider Internal Medicine
DX: R07.9 Chest pain, unspecified (principal); R06.02 Shortness of breath; Z01.810 Encounter for preprocedural cardiovascular examination
CPT/HCPCS: 93010; 99214

== ENCOUNTER → 2024-06-25 09:44 | Outpatient (BNVA) | payer OTHER, SELFPAY | PROVIDERS: PCP Internal Medicine; Visit Provider Internal Medicine | DX: Z01.810 Encounter for preprocedural cardiovascular examination (principal); R07.9 Chest pain, unspecified; R06.02 Shortness of breath | CPT/HCPCS: 93005; 99212 ==

== ENCOUNTER 2024-06-30 19:10 | Emergency (ER) | payer OTHER, SELFPAY ==
--- NOTE | ~2024-06-30 | CT_ITS ---
CLINICAL HISTORY: periumbillical pain CT abdomen and pelvis with contrast Comparison: CT/SR - CT ABDOMEN PELVIS W CON - 09/05/21 11:03 EST Findings: No consolidation or effusion. The gallbladder is surgically absent. No focal hepatic lesion identified. Pancreas, spleen and adrenal glands are within normal limits. Mild right hydronephrosis is present with ureteropelvic junction obstruction configuration. No urolithiasis. Left kidney is non hydronephrotic. No bowel obstruction, pneumoperitoneum, or pneumatosis. Pelvic contents unremarkable. Normal appendix. No acute fracture. IMPRESSION: Mild right hydronephrosis. No urolithiasis. Probable mild ureteropelvic junction obstruction. This document has been electronically signed by: Luis Manuel Cordero MD, PHD on 07/01/2024 04:31:01
--- NOTE | 2024-06-30 19:34 | ED.GENADULT ---
HPI - General Adult General Chief complaint: Abdominal Pain Stated complaint: abd hernia pain, blood in stool Time Seen by Provider: 07/01/24 01:09 Source: patient Mode of arrival: ambulatory Limitations: no limitations History of Present Illness ED Provider: Dr. Pearl López HPI narrative: Patient comes to the emergency room complaining of abdominal pain. Patient believes that she may have an incarcerated umbilical hernia. Patient states that she has an appointment pending with surgery . Patient denies nausea vomiting diarrhea. Patient states that the pain has been present for about 3 days. Patient states that she has noted a bit of flank pain but no longer present. Patient denies fever chills. Patient also states that she saw blood in her bowel movements today. No rectal/anal pain, denies vaginal bleeding. Related Data Home Medications ?Medication ?Instructions ?Recorded ?Confirmed zolpidem 5 mg tablet 5 mg PO BEDTIME PRN 04/16/20 06/25/24 sertraline 100 mg tablet 100 mg PO DAILY PRN Anxiety 12/14/23 06/25/24 sertraline 50 mg tablet 50 mg PO DAILY PRN 12/14/23 06/25/24 tirzepatide 5 mg/0.5 mL mg subcut 03/08/24 06/25/24 subcutaneous pen injector (Mounjaro) fluticasone propionate 230 2 puff inhalation BID 06/17/24 06/25/24 mcg-salmeterol 21 mcg/actuation HFA inhaler (Advair HFA) Previous Rx's ?Medication ?Instructions ?Recorded fluticasone propionate 50 1 spray intranasal DAILY #100 mL 03/20/22 mcg/actuation nasal spray,suspension (Flonase Allergy Relief) lidocaine 5 % topical patch 1 patch topical DAILY #15 ea 05/30/22 heating pads #1 ea 05/31/22 docusate sodium 100 mg capsule 100 mg PO BEDTIME #90 caps 11/22/22 polyethylene glycol 3350 17 17 g PO DAILY 30 days #510 grams 11/22/22 gram/dose oral powder (Miralax) simethicone 125 mg capsule 125 mg PO BID-QID PRN abdominal 11/22/22 distention #120 caps nebulizer accessories #1 ea 11/30/22 blood-glucose meter (FreeStyle #1 ea 12/21/22 Lite Meter kit) nebulizers (AeroEclipse II #1 ea 03/30/23 Nebulizer) linaclotide 290 mcg capsule 290 mcg PO QAM #30 caps 06/23/23 (Linzess) incontinence pad, liner, disp #60 ea 10/07/23 toilet seat elevator #1 ea 10/23/23 lorazepam 1 mg tablet (Ativan) 1 mg PO ONCE PRN anxiety #2 tabs 11/01/23 solifenacin 5 mg tablet (Vesicare) 5 mg PO DAILY 30 days #30 tabs 12/12/23 Lantus Solostar U-100 Insulin 100 42 unit (0.42 mL) subcut DAILY 90 12/25/23 unit/mL (3 mL) subcutaneous pen days #37.8 mL (insulin glargine) cholecalciferol (vitamin D3) 25 25 mcg PO DAILY 90 days #90 tabs 12/25/23 mcg (1,000 unit) tablet (Vitamin D3) cyanocobalamin (vitamin B-12) 500 500 mcg sublingual DAILY 90 days 12/25/23 mcg disintegrating #90 tabs tablet,sublingual pioglitazone 45 mg tablet 45 mg PO DAILY 90 days #90 tabs 12/25/23 canagliflozin 100 mg tablet 100 mg PO DAILY 30 days #30 tabs 01/01/24 montelukast 10 mg tablet 10 mg PO DAILY #90 tabs 01/08/24 silver sulfadiazine 1 % topical 1 appl topical DAILY 2 weeks #25 01/09/24 cream (Silvadene) grams blood-glucose meter,continuous #1 ea 01/10/24 (Dexcom G7 Electrical Equipment Technician) blood-glucose sensor (Dexcom G7 #3 ea 01/10/24 Sensor device) lidocaine HCl 2 % mucosal solution 1 appl mucous membrane BID PRN 01/17/24 pain 30 days #100 mL Shower Chair #1 ea 02/05/24 guaifenesin 600 mg tablet, 600 mg PO BID 5 days #10 tabs 04/17/24 extended release 12 hr (Mucinex) prednisone 10 mg tablet 10 mg PO DIRECTED 8 days #20 04/17/24 tabs insulin aspart U-100 100 unit/mL See Rx Instructions subcut 04/24/24 subcutaneous solution (Novolog USEASDIRECTD 90 days #90 mL U-100 Insulin aspart) acetone (urine) test (Ketone Urine #50 ea 04/25/24 Test strips) blood sugar diagnostic (FreeStyle #150 ea 04/25/24 Lite Strips) lancets 28 gauge (FreeStyle #100 ea 04/25/24 Lancets) atorvastatin 40 mg tablet 40 mg PO BEDTIME 90 days #90 tabs 04/28/24 albuterol sulfate 2.5 mg/3 mL 2.5 mg (3 mL) inhalation Q4-6H PRN 04/29/24 (0.083 %) solution for nebulization bronchospasm #75 mL albuterol sulfate 90 mcg/actuation 2 puff inhalation Q4-6H PRN 04/29/24 aerosol inhaler shortness of breath or wheezing #8.5 grams esomeprazole magnesium 40 mg 40 mg PO DAILY #30 caps 05/27/24 capsule,delayed release (Nexium) famotidine 20 mg tablet (Pepcid) 20 mg PO BEDTIME #90 tabs 05/27/24 ketorolac 10 mg tablet 10 mg PO TID PRN pain #10 tabs 07/01/24 Allergies Allergy/AdvReac Type Severity Reaction Status Date / Time Penicillins Allergy Mild RASH/DYSPNE Verified 06/30/24 19:40 A metformin AdvReac Intermediate stomach Verified 06/30/24 19:40 upset Review of Systems Review of Systems: Constitutional : No Weight loss, No Fever, No Chills, No Night Sweats, No Fatigue, No Malaise ENT/Mouth : No Hearing loss, No Ear Pain, No Nasal Congestion, No Sinus Pain, No Hoarseness, No sore throat, No Rhinorrhea, No Swallowing Difficulty Eyes: No Eye Pain, No Swelling, No Redness, No Foreign Body, No Discharge, No Vision Changes Cardiovascular : No Chest Pain, No SOB, No Dyspnea on Exertion, No Orthopnea, No Edema, No Palpitations Respiratory : No Cough, No Sputum, No Wheezing, No Smoke Exposure, No Dyspnea Gastrointestinal : No Nausea, No Vomiting, No Diarrhea, No Constipation, complaining of abdominal pain in the periumbilical and bilateral flanks Genitourinary : no irregular bleeding, No Dysuria, No Urinary Frequency, No Hematuria, No Urinary Incontinence, No Urgency, No Flank Pain, No Urinary Flow Changes, No Hesitancy Musculoskeletal : No joint pain, No Myalgias, No Joint Swelling Skin : No Skin Lesions, No rash Neuro : No Weakness, No Numbness, No Paresthesias, No Loss of Consciousness, No Dizziness, No Headache Psych : No Anxiety/Panic, No Depression, No SI/HI/AH/VH, No Social Issues, Heme/Lymph: No Bruising, No Bleeding,No Lymphadenopathy Endocrine : No Polyuria, No Polydipsia, No Temperature Intolerance [facility] Past Medical History Medical History Ear discomfort Palpitations Overweight Type 2 diabetes mellitus with diabetic polyneuropathy B12 deficiency DM2 (diabetes mellitus, type 2) Tubular adenoma Moderate recurrent major depression Dyslipidemia Umbilical hernia Edema Arthritis Ear pain 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 Pernicious anemia Hearing loss Insomnia Depression with anxiety Moderate asthma Essential hypertension Polyarthralgia GERD (gastroesophageal reflux disease) Diabetes Hearing loss Surgical History History of cholecystectomy History of umbilical hernia repair History of foot surgery History of carpal tunnel release History of surgery on arm History of endometrial ablation History of tubal ligation Family History Family History Mother Breast cancer Paternal Grandmother Breast cancer Brother Colon cancer Family/Other FH: mental illness Mental health disorder Father CAD (coronary artery disease) Social History Social History Household Members: Children Housing: Apartment Are you a primary healthcare analyst to a significant other at home: No Do you presently have visiting nurse or other home services: Yes ([employer]) Alcohol intake: never Patient Tobacco Use Status: Never used Tobacco Smoked in Last 30 Days: No e-Cigarette/Vaping Use: Never Used Second Hand Smoke Exposure: No Use of substances other than those prescribed or required for medical reasons: No Advance Directives: No Advance Directives Information Provided: Yes Do you have a plan to hurt others: No Plan Patient : No service: No Current occupational status: disabled Current occupation: Right hand dominate Cognitive needs: No Hearing needs: No Vision needs: Yes Physical Exam ED Vital Signs: Vital Signs - 24 hr 06/30/24 19:36 06/30/24 23:38 07/01/24 00:00 Temperature 98.2 F 98.3 F 97.6 F Pulse Rate 79 70 Respiratory Rate 16 16 Blood Pressure 135/72 134/75 Pulse Oximetry 97 99 Oxygen Delivery Method Room Air Room Air 07/01/24 02:00 Temperature 97.6 F Pulse Rate 72 Respiratory Rate 16 Blood Pressure 127/72 Pulse Oximetry 96 Oxygen Delivery Method Room Air BMI result Body Mass Index 29.7 Course Course Course Narrative: This is a Rapid Medical Examination (RME) performed by Vlad Cao PA-C in triage. Full HPI, ROS, assessment and treatment plan per primary provider in the Main ED. 58 yo female hx of insulin dependent DM, asthma, HTN, GERD, depression, anxiety here for eval of abdominal pain x1 week and low back pain with rectal bleeding x3 days. admits to blood on toilet paper after passing BM. no rectal pain. her stool is dark brown. has recurrent umbilical hernia, follows w/ general surgery, needs cardiac clearance for surgery so this has not been scheduled yet. + well appearing in triage Plan: labs, OBS, imaging Medications Administered Discontinued Medications Generic Name Dose Route Start Last Admin Trade Name Freq PRN Reason Stop Dose Admin Sodium Chloride 1,000 mls @ 999 mls/hr 07/01/24 01:54 07/01/24 02:22 Ns IVCONT 07/01/24 02:54 999 mls/hr .Q1H1M ONE Administration Iohexol 85 ml 07/01/24 02:49 07/01/24 02:49 Iohexol 350 Mg/Ml 100 Ml Infus..Btl IV 07/01/24 02:50 85 ml ONCE ONE Administration Morphine Sulfate 4 mg 07/01/24 01:54 07/01/24 02:25 Morphine Sulfate 4 Mg/Ml Cartridge IVPUSH 07/01/24 01:55 4 mg ONCE ONE Administration Protocol Ondansetron HCl 4 mg 07/01/24 01:54 07/01/24 02:25 Ondansetron Hcl 4 Mg/2 Ml Vial IVPUSH 07/01/24 01:55 4 mg ONCE ONE Administration Medical Decision Making Medical Decision Making [facility] Narrative: My interpretation of labs: No significant abnormality in patient's hematology and chemistry, urinalysis negative, occult blood negative CT scan does not show an incarcerated hernia. Patient has mild right hydronephrosis, no ureterolithiasis. Patient likely passed a kidney stone? Patient experiencing renal colleagues. Patient instructed to follow with her primary care physician. Differential Diagnosis Differential Diagnoses: The differential diagnosis associated with the presentation includes (Incarcerated hernia, ureterolithiasis, renal colic, SBO) Admission/Observation Consideration of admission/observation: Escalation of care including admission/observation considered (Given patient's level of discomfort, observation was considered) Lab Data MDM Lab Attestation statement: I reviewed the patient's lab results. 06/30/24 20:04 06/30/24 20:04 Labs: Lab Results 06/30/24 07/01/24 07/01/24 Range/Units 20:04 00:20 01:27 WBC 7.7 (4.8-10.8) X10*3/uL RBC 4.96 (4.20-5.50) X10*6/uL Hgb 13.9 (12.0-16.0) g/dl Hct 42.8 (37.0-47.0) % MCV 86.3 (80.0-98.0) fL MCH 28.0 (27.0-33.0) pg MCHC 32.5 (31.0-35.0) g/dl RDW 12.7 (11.0-16.0) % Plt Count 141 L (160-400) X10*3/uL MPV 12.4 H (9.4-12.3) fL Immature Gran % (Auto) 0.3 (0.0-0.4) % Neut % (Auto) 65.1 (45-73) % Lymph % (Auto) 25.0 (20-40) % [place] % (Auto) 7.2 (2-11) % Eos % (Auto) 1.7 (0-4) % Baso % (Auto) 0.7 (0-2) % Lymph # (Auto) 1.9 (1.2-4.9) X10*3/uL [place] # (Auto) 0.6 (0.1-1.2) X10*3/uL Eos # (Auto) 0.1 (0.0-0.4) X10*3/uL Baso # (Auto) 0.1 (0.0-0.2) X10*3/uL Abs Immat Gran (auto) 0.02 (0.00-0.03) X10*3/uL Absolute Neuts (auto) 5.0 (2.0-8.3) x10*3/uL Absolute Nucleated RBC 0.000 (0.0-0.012) X10*3/uL Nucleated RBC % (auto) 0.0 (0.0-0.2) /100WBC PT 11.1 (10.9-12.4) SEC INR 1.0 (0.9-1.1) Sodium 138 (135-145) mmol/L Potassium 3.5 (3.3-5.1) mmol/L Chloride 105 (96-108) mmol/L Carbon Dioxide 25 (22-29) mmol/L Anion Gap 12 (12-20) BUN 14 (9-16) mg/dL Creatinine 0.85 (0.5-1.4) mg/dL Estim Creat Clear Calc 67.0 Estimated GFR > 60 POC Glucose 287 H (60-115) mg/dL Random Glucose 330 H (60-115) mg/dL Calcium 9.2 (8.4-10.2) mg/dL Magnesium 1.8 (1.6-2.6) mg/dL Total Bilirubin 0.4 (0.0-1.0) mg/dL AST 27 (5-31) U/L ALT 35 H (0-31) U/L Alkaline Phosphatase 71 (39-117) U/L Total Protein 7.3 (6.5-8.0) g/dL Albumin 4.1 (3.5-5.0) g/dL Urine Color Yellow Urine Appearance Clear Urine pH 6.0 (5.0-9.0) Ur Specific Combs 1.025 (1.005-1.025) Urine Protein Negative (Neg-Trace) mg/dL Urine Glucose (UA) >=1000 H (Negative) mg/dL Urine Ketones Negative (Negative) mg/dL Urine Blood Negative (Negative) Urine Nitrite Negative (Negative) Ur Leukocyte Esterase Negative (Negative) Urine RBC 0-2 (0-2) /HPF Urine WBC 0-5 (0-5) /HPF Ur Squamous Epith Cells 0-2 (0-2) /HPF Urine Bacteria None Seen (None Seen) Hyaline Casts 0-2 (0-2) /LPF Stool Occult Blood NEGATIVE (NEGATIVE) Independent Interpretation I performed an independent interpretation of an: CT Scan Radiology Impression Discussion of test interpretation with radiology: I have reviewed the radiologist's reading. Radiologist Impression: No consolidation or effusion. The gallbladder is surgically absent. No focal hepatic lesion identified. Pancreas, spleen and adrenal glands are within normal limits. Mild right hydronephrosis is present with ureteropelvic junction obstruction configuration. No urolithiasis. Left kidney is non hydronephrotic. No bowel obstruction, pneumoperitoneum, or pneumatosis. Pelvic contents unremarkable. Normal appendix. No acute fracture. IMPRESSION: Mild right hydronephrosis. No urolithiasis. Probable mild ureteropelvic junction obstruction. Critical Care Time Critical Care Time Critical Care Time: Yes Total Critical Care Time: 35 Attestation: I have personally provided critical care time. Time includes review of lab data, radiology results, discussion with consultants, and monitoring for potential decompensation. Intervention performed as documented. Discharge Plan Discharge Clinical Impression: Abdominal pain, Renal colic Patient Disposition: Home, Self-Care Instructions: Renal Colic (ED), Abdominal Pain (ED) Additional Instructions: Please follow-up with your primary care physician tomorrow. If you have any worsening or new symptoms, please return to the emergency room or call 911 Prescriptions: New ketorolac 10 mg tablet 10 mg PO TID PRN (Reason: pain) Qty: 10 0RF Rx Instructions: Do not use this medication with any other NSAIDs No Action fluticasone propionate [Flonase Allergy Relief] 50 mcg/actuation spray,suspension 1 spray intranasal DAILY Qty: 100 0RF Rx Instructions: administer into each nostril (DME) heating pads Pad See Rx Instructions .Route Qty: 1 0RF Rx Instructions: As directed (DME) blood-glucose meter [FreeStyle Lite Meter] Kit See Rx Instructions .ROUTE .MEDSUPPLY Qty: 1 0RF Rx Instructions: use as directed to test blood sugar 4x per day (DME) nebulizers [AeroEclipse II Nebulizer] Misc See Rx Instructions .Route Qty: 1 0RF Rx Instructions: As directed (DME) incontinence pad, liner, disp Pad See Rx Instructions .Route Qty: 60 11RF Rx Instructions: Use 1 pad twice a day cholecalciferol (vitamin D3) [Vitamin D3] 25 mcg (1,000 unit) tablet 25 mcg PO DAILY 90 Days Qty: 90 3RF cyanocobalamin (vitamin B-12) 500 mcg tablet,disintegrating 500 mcg sublingual DAILY 90 Days Qty: 90 1RF insulin glargine [Lantus Solostar U-100 Insulin] 100 unit/mL (3 mL) insulin pen 42 unit subcut DAILY 90 Days Qty: 37.8 1RF pioglitazone 45 mg tablet 45 mg PO DAILY 90 Days Qty: 90 2RF canagliflozin 100 mg tablet 100 mg PO DAILY 30 Days Qty: 30 6RF montelukast 10 mg tablet 10 mg PO DAILY Qty: 90 3RF (DME) Dexcom G7 Sensor Device See Rx Instructions .Route Qty: 3 5RF Rx Instructions: As directed change every 10 days (DME) Dexcom G7 Electrical Equipment Technician Misc See Rx Instructions .Route Qty: 1 0RF Rx Instructions: As directed ([facility]) Shower Chair Misc See Rx Instructions .Route Qty: 1 0RF Rx Instructions: As directed insulin aspart U-100 [Novolog U-100 Insulin aspart] 100 unit/mL solution See Rx Instructions subcut USEASDIRECTD 90 Days Qty: 90 3RF Rx Instructions: up to 90 units daily by pump subcutaneously use as directed; atorvastatin 40 mg tablet 40 mg PO BEDTIME 90 Days Qty: 90 0RF albuterol sulfate 90 mcg/actuation HFA aerosol inhaler 2 puff inhalation Q4-6H PRN (Reason: shortness of breath or wheezing) Qty: 8.5 0RF albuterol sulfate 2.5 mg /3 mL (0.083 %) solution for nebulization 2.5 mg inhalation Q4-6H PRN (Reason: bronchospasm) Qty: 75 0RF lidocaine 5 % adhesive patch,medicated 1 patch topical DAILY Qty: 15 0RF Rx Instructions: leave on most painful area for up to 12 hrs zolpidem 5 mg tablet 5 mg PO BEDTIME PRN sertraline 100 mg tablet 100 mg PO DAILY PRN (Reason: Anxiety) (DME) toilet seat elevator See Rx Instructions .Route .MEDSUPPLY Qty: 1 0RF Rx Instructions: As directed (DME) nebulizer accessories Misc See Rx Instructions .Route Qty: 1 0RF Rx Instructions: NEBULIZER FACE MASK ADULT, USE DIRECTED silver sulfadiazine [Silvadene] 1 % cream 1 appl topical DAILY 14 Days Qty: 25 0RF Rx Instructions: apply a 1.5 mm thickness lidocaine HCl 2 % solution 1 appl mucous membrane BID PRN (Reason: pain) 30 Days Qty: 100 0RF docusate sodium 100 mg capsule 100 mg PO BEDTIME Qty: 90 3RF polyethylene glycol 3350 [Miralax] 17 gram/dose powder 17 g PO DAILY 30 Days Qty: 510 3RF simethicone 125 mg capsule 125 mg PO BID-QID PRN (Reason: abdominal distention) Qty: 120 3RF famotidine [Pepcid] 20 mg tablet 20 mg PO BEDTIME Qty: 90 3RF esomeprazole magnesium [Nexium] 40 mg capsule,delayed release(DR/EC) 40 mg PO DAILY Qty: 30 5RF (DME) Ketone Urine Test Strip See Rx Instructions .Route Qty: 50 5RF Rx Instructions: As directed (DME) FreeStyle Lite Strips Strip See Rx Instructions .ROUTE .MEDSUPPLY Qty: 150 11RF Rx Instructions: As directed four times a day (DME) lancets [FreeStyle Lancets] 28 gauge misc See Rx Instructions .ROUTE .MEDSUPPLY Qty: 100 11RF Rx Instructions: every 4 hours prn dispense as 32 gauge if avil sertraline 50 mg tablet 50 mg PO DAILY PRN Linzess 290 mcg capsule 290 mcg PO QAM Qty: 30 4RF lorazepam [Ativan] 1 mg tablet 1 mg PO ONCE PRN (Reason: anxiety) Qty: 2 0RF Rx Instructions: Take one tab 2 hours before your right shoulder MRI; take the second tab 30 minutes before your MRI. solifenacin [Vesicare] 5 mg tablet 5 mg PO DAILY 30 Days Qty: 30 3RF Mounjaro 5 mg/0.5 mL pen injector subcut fluticasone propion-salmeterol [Advair HFA] 230-21 mcg/actuation HFA aerosol inhaler 2 puff inhalation BID prednisone 10 mg tablet 10 mg PO DIRECTED 8 Days Qty: 20 0RF Rx Instructions: Take 4 tabs for 2 days, then 3 tabs for 2 days, then 2 tabs for 2 days, then 1 tab for 2 days guaifenesin [Mucinex] 600 mg tablet extended release 12hr 600 mg PO BID 5 Days Qty: 10 0RF Print Language: Uzbek
[2024-06-30 19:36] VITALS: BP 135/72; PULSE 79; RESP 16; TEMP 36.8; O2SAT 97; BMI 29.7
[2024-06-30 20:22] LABS: MANUAL DIFF FLAG NO
[2024-06-30 20:25] LABS: Basophils Absolute Auto 0.1 X10*3/uL (0.0-0.2); Basophils Percent Auto 0.7 % (0-2); Eosinophils Absolute Auto 0.1 X10*3/uL (0.0-0.4); Eosinophils Percent Auto 1.7 % (0-4); Hematocrit 42.8 % (37.0-47.0); Hemoglobin 13.9 g/dl (12.0-16.0); Imm Gran Abs Auto 0.02 X10*3/uL (0.00-0.03); Imm Gran Pct Auto 0.3 % (0.0-0.4); Lymphocytes Absolute Auto 1.9 X10*3/uL (1.2-4.9); Mean Corpuscular HGB Conc 32.5 g/dl (31.0-35.0); Mean Corpuscular Volume 86.3 fL (80.0-98.0); Mean Platelet Volume 12.4 fL (9.4-12.3); Monocytes Absolute Auto 0.6 X10*3/uL (0.1-1.2); Monocytes Percent Auto 7.2 % (2-11); Neutrophils Percent Auto 65.1 % (45-73); Platelet Count 141 X10*3/uL (160-400); Red Blood Count 4.96 X10*6/uL (4.20-5.50); Red Cell Distribution Width 12.7 % (11.0-16.0); White Blood Count 7.7 X10*3/uL (4.8-10.8)
[2024-06-30 20:26] LABS: Appearance Urine Clear; Color Urine Yellow; Glucose Urine UA >=1000 mg/dL (Negative); Leukocyte Esterase Urine Negative (Negative); Nitrite Urine Negative (Negative); Specific Gravity - Urine 1.025 (1.005-1.025); UMIC TRIGGER UACC YES; Urine Blood Negative (Negative); Urine Ketones Negative (Negative); Urine Protein Negative (Neg-Trace)
[2024-06-30 20:28] LABS: Bacteria Urine None Seen (None Seen); Hyaline Casts Urine 0-2 /LPF (0-2); RBC Urine 0-2 /HPF (0-2); Squamous Epithelial Cell Urine 0-2 /HPF (0-2); WBC Urine 0-5 /HPF (0-5)
[2024-06-30 20:32] LABS: Prothrombin Time 11.1 SEC (10.9-12.4)
[2024-06-30 20:42] LABS: Alanine Aminotransferase 35 U/L (0-31); Albumin Level 4.1 g/dL (3.5-5.0); Alkaline Phosphatase 71 U/L (39-117); Anion Gap 12 (12-20); Aspartate Amino Transferase 27 U/L (5-31); Bilirubin Total 0.4 mg/dL (0.0-1.0); Blood Urea Nitrogen 14 mg/dL (9-16); Calcium 9.2 mg/dL (8.4-10.2); Carbon Dioxide 25 mmol/L (22-29); Chloride 105 mmol/L (96-108); Estimated Glomerular Filt Rate > 60; Glucose Random 330 mg/dL (60-115); Magnesium 1.8 mg/dL (1.6-2.6); Potassium 3.5 mmol/L (3.3-5.1); Sodium 138 mmol/L (135-145); Total Protein 7.3 g/dL (6.5-8.0)
[2024-06-30 23:38] VITALS: BP 134/75; PULSE 70; RESP 16; TEMP 36.8; O2SAT 99
[2024-07-01] VITALS: TEMP 36.4
[2024-07-01 00:27] LABS: Glucose, Whole Blood 287 mg/dL (60-115)
[2024-07-01 02:00] VITALS: BP 127/72; PULSE 72; RESP 16; TEMP 36.4; O2SAT 96
[2024-07-01 02:00] LABS: OBS Int Ctl Valid YES; OBS1 NEGATIVE (NEGATIVE)
[2024-07-01] MEDS: 0.9 % Sodium Chloride 1,000 ML 999 ML IVCONT (02:22)
[2024-07-01] MEDS: Morphine Sulfate 4 MG/ML CARTRIDGE IVPUSH (02:25)
[2024-07-01] MEDS: ondansetron HCL 4 MG/2 ML VIAL IVPUSH (02:25)
[2024-07-01] MEDS: iohexoL 350 MG/ML 100 ML INFUS..BTL 85 ML IV (02:49)
[2024-07-01 04:06] VITALS: BP 122/61; PULSE 82; RESP 16; TEMP 36.8; O2SAT 97
[2024-07-01 04:25] VITALS: BP 122/61; PULSE 82; RESP 16; TEMP 36.8; O2SAT 97
== END 2024-07-01 04:35 | disposition home or self-care (01) ==
PROVIDERS: Physician Assistant Medical; Emergency Provider Emergency Medicine; PCP Internal Medicine
DX: N23 Unspecified renal colic (principal); K92.1 Melena; Z79.899 Other long term (current) drug therapy
CPT/HCPCS: 36415; 74177; 80053; 81001; 82272; 82947; 83735; 85025; 85610; 96374; 96375; 99284; 99285; J2270; J2405; Q9967

== ENCOUNTER → 2024-07-01 01:33 | Outpatient (BNV) | payer OTHER, SELFPAY | PROVIDERS: Emergency Provider Emergency Medicine; PCP Internal Medicine; Visit Provider General Practice | DX: R10.33 Periumbilical pain (principal) | CPT/HCPCS: 74177 ==

== ENCOUNTER → 2024-07-02 08:52 | Outpatient (REF) | payer OTHER, SELFPAY ==
--- NOTE | 2024-07-02 08:55 | CA_ITS ---
Transthoracic Echocardiogram Patient (Last, First, Middle): Mellisa Akbar, Gender: Female Date of : 1965 Age: 58 Procedure Date: 07/02/2024 Procedure Type: Transthoracic Echocardiogram Location: OP Height: 157. cm Weight: 75.75 kg BSA: 1.77 m2 Heart Rate: 61 bpm BP: 115 / 65 mmHg Metal Inspector: MICAELA Mcdowell MD: Andres Hansen MD Property Claim Rep: Justin Barrera MD Symptoms: R06.02 - Shortness of breath Study Quality: Adequate w/Contrast ECG Rhythm: Sinus Conclusions: - 1. Normal LV ejection fraction of 60 65% with impaired relaxation filling pattern 2. Normal cardiac valvular Dopplers 3. Normal RV systolic pressure 4. No gross pericardial effusion Findings Procedure Information Contrast agent, definity, is being given per protocol without apparent complications. Left Ventricle Normal left ventricular size, thickness, and systolic function. The visually estimated ejection fraction is between 60-65%. Spectral Doppler is indicative of an impaired relaxation filling pattern. E/E prime ratio is between 8 and 15 consistent with indeterminate filling pressures. Right Ventricle Normal right ventricular cavity size and systolic function. Atria Both atria are normal in size. There is no evidence of interatrial shunt. Aortic Valve Normal aortic valve structure and function. There is no aortic valve stenosis. There is no aortic valve regurgitation. Mitral Valve Normal mitral valve structure and function. There is trace mitral valve regurgitation. There is no mitral valve stenosis. Pulmonic Valve The pulmonic valve is likely normal. Tricuspid Valve Normal tricuspid valve structure. There is trace tricuspid valve regurgitation. The right ventricular systolic pressure is normal. The right ventricular systolic pressure is 21 mmHg. Normal right atrial pressure. There is no evidence of pulmonary hypertension. Great Vessels All visible segments of the aorta are normal in size. The pulmonary artery was not well visualized. There is no dilatation of the ascending aorta measuring 2.70 cm. Venous The inferior vena cava is normal in size and collapses greater than 50% with inspiration. Pericardium/Pleural There is no evidence of pericardial effusion. Prior Study Comparison No significant change compared to prior study dated: 10/29/2020. Measurements 2D Linear Measurements IVSd: 0.81 0.6-0.9/0.6-1.0 cm LVIDd: 4.49 3.9-5.3/4.2-5.9 cm LVIDd Index: 2.54 2.4-3.2/2.2-3.1 cm/m2 LVIDs: 2.61 2.0-3.6 cm LVPWd: 0.86 0.7-1.1 cm LA Diam: 3.10 2.7-3.8/3.0-4.0 cm LAIDs Index: 1.75 1.5-2.3 cm/m2 LV Mass: 149.07 67-162/88-224 g LV Mass Index: 84.22 43-95/49-115 g/m2 LVOT Diam: 1.90 3.0+(-)1.3 cm 2D Systolic Function EF 4C: 55.80 >55% EF 2C: 66.80 >55% EF BiP: 62.10 >55% Mitral Valve MV Pk E: 0.87 MV PK A: 0.99 MV Decel Time: 223.00 E/A: 0.90 E'Lateral: 8.59 E'Medial: 6.85 E/E' Med: 12.60 E/E' Lat: 10.10 PHT: 65.00 MVA PHT: 3.38 Decel Pope: 3.89 Aortic Valve AoV Pk Varun: 1.00 AoV Mn Varun: 0.65 AoV VTI: 0.18 AoV Pk Grad: 4.00 Aov Mn Grad: 2.00 GODFREY Cont.VTI: 3.46 LVOT LVOT Pk Varun: 1.06 LVOT Mn Avrun: 0.69 LVOT VTI: 0.22 LVOT Pk Grad: 4.00 LVOT Mn Grad: 2.00 LVOT Diam: 1.90 LVOT Area: 2.84 Diastolic Function MV Pk E: 0.87 MV Pk A: 0.99 E/A: 0.90 E'Medial: 6.85 E/E' Med: 12.60 E' Laterial: 8.59 E/E' Lat: 10.10 Right Ventricle TAPSE (mm): 20.40 TVS' Varun: 10.80 Tricuspid Valve TR Pk Varun: 2.15 TR Pk Grad: 18.00 RA Press: 3.00 RVSP: 21.00 Great Vessels Aorta Sinus of Valsalva: 2.90 2.0-3.5 cm Ao Asc: 2.70 2.1-3.4 cm Pulmonary Valve PV Pk Varun: 0.90 Peak PV Grad: 3.00 Updated in Other Vendor System with Status of Final Donavan Crawford MD electronically signed on 07/02/2024 5:40:12 PM with status of Final
== END ==
LOC: HO.CARD 08:52
PROVIDERS: PCP Internal Medicine; Visit Provider Internal Medicine
DX: R06.02 Shortness of breath (principal)
CPT/HCPCS: 93306; Q9957

== ENCOUNTER → 2024-07-02 08:55 | Outpatient (BNV) | payer OTHER, SELFPAY | PROVIDERS: PCP Internal Medicine; Visit Provider Internal Medicine Cardiovascular Disease | DX: R06.02 Shortness of breath (principal); R93.1 Abnormal findings on diagnostic imaging of heart and coronary circulation | CPT/HCPCS: 93306 ==

== ENCOUNTER → 2024-07-04 10:02 | Outpatient (BNVA) | payer OTHER, SELFPAY | PROVIDERS: PCP Internal Medicine ==

== ENCOUNTER 2024-07-08 08:48 | Outpatient (AMB) | payer OTHER, SELFPAY ==
[2024-07-08 09:19] VITALS: BP 122/54; PULSE 82; O2SAT 97; BMI 30.5
--- NOTE | 2024-07-08 09:19 | HO.NEPHOV_ITS ---
Vital Signs 07/08/24 09:19 Height 5 ft 2 in Weight 167 lb BMI 30.5 BP 122/54 L Blood Pressure Location Lt brachial Position Sitting Pulse 82 Pulse Source Pulse Oximeter Pulse Oximetry (%) 97 Oxygen Delivery Method Room Air Intake Visit Reasons: 6 mon follow up/ CONF Financial Administrative Assistant Required: Yes Financial Administrative Assistant Name: Mike [id number] Accompanied by: Self / Same As Patient Allergies Penicillins Allergy (Mild, Verified 07/08/24 09:21) RASH/DYSPNEA metformin Adverse Reaction (Intermediate, Verified 07/08/24 09:21) stomach upset Medication List - Last Reconciled 07/08/24 by Kris Rausch MD acetone (urine) test (Ketone Urine Test strips) As directed albuterol sulfate 2.5 mg (3 mL) inhalation Q4-6H PRN albuterol sulfate 90 mcg/actuation 2 puffs inhalation Q4-6H PRN atorvastatin 40 mg PO BEDTIME 90 days blood sugar diagnostic (FreeStyle Lite Strips) As directed four times a day blood-glucose meter (FreeStyle Lite Meter kit) use as directed to test blood sugar 4x per day blood-glucose meter,continuous ([employer] G7 Archivist) As directed blood-glucose sensor (Dexcom G7 Sensor device) As directed change every 10 days canagliflozin 100 mg PO DAILY 30 days cholecalciferol (vitamin D3) (Vitamin D3) 25 mcg PO DAILY 90 days cyanocobalamin (vitamin B-12) 500 mcg sublingual DAILY 90 days docusate sodium 100 mg PO BEDTIME esomeprazole magnesium (Nexium) 40 mg PO DAILY famotidine (Pepcid) 20 mg PO BEDTIME fluticasone propion-salmeterol 230-21 mcg/actuation (Advair HFA) 2 puffs inhalation BID fluticasone propionate 50 mcg/actuation (Flonase Allergy Relief) 1 spray intranasal DAILY guaifenesin ER (Mucinex) 600 mg PO BID 5 days heating pads As directed incontinence pad, liner, disp Use 1 pad twice a day insulin aspart U-100 (Novolog U-100 Insulin aspart) up to 90 units daily by pump subcutaneously use as directed; 90 days ketorolac 10 mg PO TID PRN lancets (FreeStyle Lancets) every 4 hours prn dispense as 32 gauge if avil Lantus Solostar U-100 Insulin (insulin glargine) 42 units (0.42 mL) subcut DAILY 90 days NS lidocaine 5% 1 patch topical DAILY lidocaine HCl 2% 1 appl mucous membrane BID PRN 30 days linaclotide (Linzess) 290 mcg PO QAM lorazepam (Ativan) 1 mg PO ONCE PRN montelukast 10 mg PO DAILY nebulizer accessories NEBULIZER FACE MASK ADULT, USE DIRECTED nebulizers (AeroEclipse II Nebulizer) As directed pioglitazone 45 mg PO DAILY 90 days polyethylene glycol 3350 (Miralax) 17 grams PO DAILY 30 days prednisone 10 mg PO DIRECTED 8 days sertraline 50 mg PO DAILY PRN sertraline 100 mg PO DAILY PRN Shower Chair As directed silver sulfadiazine 1% (Silvadene) 1 appl topical DAILY 2 weeks simethicone 125 mg PO BID-QID PRN solifenacin (Vesicare) 5 mg PO DAILY 30 days tirzepatide (Mounjaro) mg subcut [toilet seat elevator As directed] zolpidem 5 mg PO BEDTIME PRN HPI Comments Details: 58-year-old man with a history of longstanding diabetes mellitus for almost 23 years has been referred for evaluation of renal function. She has been noting some foaming during urination. There is a question of proteinuria. Serum creatinine has been stable and less than 1.0. She tells me his blood sugar has been suboptimally controlled recent A1c was 8.3%. Currently she is being treated by endocrinology. She has been taking hydrochlorothiazide 12.5 mg. This was given because of generalized edema. She admits to eating excessive salty food. 01/05/2024. Overall doing well. Recently had vaginal fungal infection. She was treated with miconazole. She is on SGLT2 inhibitors. 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 Pernicious anemia Hearing loss Insomnia Depression with anxiety Moderate asthma Essential hypertension Polyarthralgia GERD (gastroesophageal reflux disease) Diabetes Hearing loss Surgical History History of cholecystectomy History of umbilical hernia repair History of foot surgery History of carpal tunnel release History of surgery on arm History of endometrial ablation History of tubal ligation Family History Mother Breast cancer Paternal Grandmother Breast cancer Brother Colon cancer Family/Other FH: mental illness Mental health disorder Father CAD (coronary artery disease) Social History Household Members: Children Housing: Apartment Are you a primary health care technician to a significant other at home: No Do you presently have visiting nurse or other home services: Yes (LAB ASSOCIATE) Alcohol intake: never Patient Tobacco Use Status: Never used Tobacco e-Cigarette/Vaping Use: Never Used Second Hand Smoke Exposure: No service: No Current occupational status: disabled Current occupation: Right hand dominate Cognitive needs: No Hearing needs: No Vision needs: Yes Female Reproductive History Menstrual Age of Menarche: 11 Physical Exam Vital Signs: Last Vital Signs Pulse 82 07/08/24 09:19 BP 122/54 L 07/08/24 09:19 Pulse Ox 97 07/08/24 09:19 Oxygen Delivery Method Room Air 07/08/24 09:19 BMI result Body Mass Index 30.5 Results Reviewed Nephrology Results: Hgb 13.9 g/dl (12.0-16.0) 06/30/24 WBC 7.7 X10*3/uL (4.8-10.8) 06/30/24 Plt Count 141 X10*3/uL (160-400) L 06/30/24 Sodium 138 mmol/L (135-145) 06/30/24 Potassium 3.5 mmol/L (3.3-5.1) 06/30/24 Chloride 105 mmol/L (96-108) 06/30/24 Carbon Dioxide 25 mmol/L (22-29) 06/30/24 BUN 14 mg/dL (9-16) 06/30/24 Creatinine 0.85 mg/dL (0.5-1.4) 12/29/24 Calcium 9.2 mg/dL (8.4-10.2) 06/30/24 Urine Protein Negative mg/dL (Neg-Trace) 06/30/24 Assessment & Plan Assessment & Plan (1) Type 2 diabetes mellitus with diabetic polyneuropathy: Code(s): E11.42 - Type 2 diabetes mellitus with diabetic polyneuropathy Category: Medical Qualifiers: Diabetes mellitus keno terminal operator insulin use: with keno terminal operator use Qualified Code(s): E11.42 - Type 2 diabetes mellitus with diabetic polyneuropathy; Z79.4 - 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 (2) Proteinuria: Code(s): R80.9 - Proteinuria, unspecified Category: Medical (3) Hydronephrosis: Code(s): N13.30 - Unspecified hydronephrosis Category: Medical Plan . Middle-aged woman with longstanding history of diabetes mellitus. At present renal function stable with a creatinine of 0.9 mg/dL. In the past she did not have any significant proteinuria. No significant proteinuria based on urine protein creatinine ratio. The blood pressure well controlled. She would hypotension while she was on hydrochlorothiazide. After discontinuing hydrochlorothiazide blood pressure seems optimal Encouraged her to stand on a low-sodium diet. Needs to increase p.o. fluid intake. Concur with other management and agree with using SGLT2 inhibitors. The glycosuria is due to the use of SGLT2 inhibitors and no further intervention is needed. CT shows mild right hydro Will refer to URology Orders: Orders Total Protein Urine Random 6 Months N13.30 - Unspecified hydronephrosis UA and rflx microscopic 6 Months N13.30 - Unspecified hydronephrosis Creatinine Urine 6 Months N13.30 - Unspecified hydronephrosis Basic Metabolic Panel 6 Months R80.9 - Proteinuria, unspecified Referrals Urology Referral N13.30 - Unspecified hydronephrosis, R31.9 - Hematuria, unspecified Coding Level of Care Code Est Pt Level 4 (33210) Diagnoses Type 2 diabetes mellitus with diabetic polyneuropathy, with long-term current use of insulin E11.42; Z79.4 Diabetes mellitus fci insulin use: with fci use Proteinuria R80.9 Hydronephrosis N13.30
== END 2024-07-08 09:40 | disposition home or self-care (01) ==
PROVIDERS: PCP Internal Medicine; Visit Provider Internal Medicine Hypertension Specialist
DX: E11.42 Type 2 diabetes mellitus with diabetic polyneuropathy (principal); Z79.4 Long term (current) use of insulin; R80.9 Proteinuria, unspecified; N13.30 Unspecified hydronephrosis
CPT/HCPCS: 99214

== ENCOUNTER → 2024-07-08 08:48 | Outpatient (BNVA) | payer OTHER, SELFPAY | PROVIDERS: PCP Internal Medicine; Visit Provider Internal Medicine Hypertension Specialist | DX: E11.42 Type 2 diabetes mellitus with diabetic polyneuropathy (principal); N13.30 Unspecified hydronephrosis; R80.9 Proteinuria, unspecified; Z79.4 Long term (current) use of insulin | CPT/HCPCS: 99212 ==

== ENCOUNTER → 2024-07-22 10:09 | Outpatient (REF) | payer OTHER, SELFPAY ==
--- NOTE | 2024-07-22 10:11 | CA_ITS ---
Acquisition Time: 2024-07-22 11:49:19 Total Exercise Time: 00:07:10 Test Indications: Medications: Protocol: SANJUANITA Max HR: 260 BPM 161% of Pred: 161 BPM Max BP: 136/70 mmHG Max Work Load: 8.8 METS Exercise Stress Test with exercise 7 mins 10 secs of Sanjuanita Protocol, achieving 98% MPHR, with reports of 6/10 left upper chest pressure, resolved quickly in recovery,without any arrythmias, with normotensive response to exercise. Without EKG changes meeting criteria for ischemia. Echo images obtained by tech at rest and post peak exercise. Definity contrast used. Test reviewed with Dr. Crawford. Referred By: Andres Hansen Electronically Signed By: Juan Gupta
== END ==
LOC: HO.CARD 10:09
PROVIDERS: PCP Internal Medicine; Visit Provider Internal Medicine
DX: R07.2 Precordial pain (principal)
CPT/HCPCS: 93350; Q9957

== ENCOUNTER → 2024-07-22 10:11 | Outpatient (BNV) | payer OTHER, SELFPAY | PROVIDERS: PCP Internal Medicine | DX: R07.9 Chest pain, unspecified (principal) | CPT/HCPCS: 93016; 93018; 93350; 93352 ==

== ENCOUNTER 2024-07-30 10:56 | Outpatient (REF) | payer OTHER, SELFPAY ==
--- NOTE | ~2024-07-30 | XR_ITS ---
CLINICAL HISTORY: J40 - Bronchitis, not specified as acute or chronic 2 view chest x-ray Comparison: None Findings: Mild diffuse reticulonodular pulmonary opacity Heart size is normal. No acute fracture. IMPRESSION: Mild atypical pneumonia. This document has been electronically signed by: Lucy Lundy MD on 07/31/2024 17:37:57
--- OUTSIDE RECORDS SUMMARY | 2024-07-30 13:01 | XMS_ITS | Clinical Summary ---
Author Organization [facility] Address [address] [place] [address] Care Team Providers Care Salvage Winder Name Role Phone Unavailable Primary Care Provider [...] Drug Screen 07/03/2023 Depression Annual Screen 07/03/2023 [id number] ( season) 2024 021, 10/07/2020 Imm-Influenza (#1) 2024 04/04/2019, 05/30/2018 Imm-DTaP/Tdap/Td (2 - Td or Tdap) 01/06/2030 020, 07/08/2015 Cervical Ablation/Cold-Knife Conization Discontinued Cervical Cryotherapy Discontinued Colposcopy Discontinued Endometrial Biopsy Discontinued Excision/Leep Discontinued HPV Genotyping Discontinued Vaginal Pap Discontinued Vulvoscopy Discontinued Insurance [facility] [employer] PLAN Member Subscriber Plan / Payer (Ef fective 2020-Present) Name:Mellisa Durham Relation to Subscriber:Self Name:Mellisa Durham Payer ID:[id number] Group ID:[id number] Type:Medicaid Address: [facility] [address] [place] [address]
--- OUTSIDE RECORDS SUMMARY | 2024-07-30 13:01 | XMS_ITS | Clinical Summary ---
Author Organization [employer] [facility] ity Address [address] [place] [address] Care Team Providers Care Sheep And Wheat Farmer Name Role Phone Unavailable Primary Care Provider [...]
[2024-07-30 13:44] LABS: Influenza A PCR NEGATIVE (Negative); Influenza B PCR NEGATIVE (Negative); Resp Syncy Virus RNA Qual PCR NEGATIVE (Negative); SARS COV2 PCR INHOUSE NEGATIVE (Negative)
== END 2024-07-30 10:57 | disposition home or self-care (01) ==
LOC: HO.XRAY 10:56
PROVIDERS: PCP Internal Medicine; Visit Provider Internal Medicine
DX: E11.42 Type 2 diabetes mellitus with diabetic polyneuropathy (principal); Z79.4 Long term (current) use of insulin; J40 Bronchitis, not specified as acute or chronic; E78.5 Hyperlipidemia, unspecified; F33.1 Major depressive disorder, recurrent, moderate; H91.90 Unspecified hearing loss, unspecified ear; I10 Essential (primary) hypertension; J45.40 Moderate persistent asthma, uncomplicated; K21.9 Gastro-esophageal reflux disease without esophagitis; E55.9 Vitamin D deficiency, unspecified; R09.89 Other specified symptoms and signs involving the circulatory and respiratory systems
CPT/HCPCS: 0241U; 71046; 83036; 96127; 99212

== ENCOUNTER 2024-07-30 10:56 | Outpatient (AMB) | payer OTHER, SELFPAY ==
--- NOTE | 2024-07-30 11:11 | A.OFFPC_ITS ---
Vital Signs 07/30/24 11:13 Height 5 ft 2 in Weight 171 lb BMI 31.3 BP 122/68 Blood Pressure Location Lt brachial Position Sitting Intake Visit Reasons: dm - see comments Intake Note: patient here for a follow up DM Supervisor Byproducts Required: Yes Supervisor Byproducts Language: Boathouse Keeper Name: Norma Bland MD Information Interpreted: non-clinical & clinical Accompanied by: Self / Same As Patient Allergies Penicillins Allergy (Mild, Verified 07/30/24 11:27) RASH/DYSPNEA metformin Adverse Reaction (Intermediate, Verified 07/30/24 11:27) stomach upset Medication List - Last Reconciled 07/30/24 by Nomra Bland MD acetone (urine) test (Ketone Urine Test strips) As directed albuterol sulfate 2.5 mg (3 mL) inhalation Q4-6H PRN albuterol sulfate 90 mcg/actuation 2 puffs inhalation Q4-6H PRN atorvastatin 40 mg PO BEDTIME 90 days blood sugar diagnostic (FreeStyle Lite Strips) As directed four times a day blood-glucose meter (FreeStyle Lite Meter kit) use as directed to test blood sugar 4x per day blood-glucose meter,continuous ([employer] G7 Leasing Machine Tender) As directed blood-glucose sensor (Dexcom G7 Sensor device) As directed change every 10 days canagliflozin 100 mg PO DAILY 30 days cholecalciferol (vitamin D3) (Vitamin D3) 25 mcg PO DAILY 90 days cyanocobalamin (vitamin B-12) 500 mcg sublingual DAILY 90 days docusate sodium 100 mg PO BEDTIME esomeprazole magnesium (Nexium) 40 mg PO DAILY famotidine (Pepcid) 20 mg PO BEDTIME fluticasone propion-salmeterol 230-21 mcg/actuation (Advair HFA) 2 puffs inhalation BID fluticasone propionate 50 mcg/actuation (Flonase Allergy Relief) 1 spray intranasal DAILY guaifenesin ER (Mucinex) 600 mg PO BID 5 days heating pads As directed incontinence pad, liner, disp Use 1 pad twice a day insulin aspart U-100 (Novolog U-100 Insulin aspart) up to 90 units daily by pump subcutaneously use as directed; 90 days ketorolac 10 mg PO TID PRN lancets (FreeStyle Lancets) every 4 hours prn dispense as 32 gauge if avil Lantus Solostar U-100 Insulin (insulin glargine) 42 units (0.42 mL) subcut DAILY 90 days NS lidocaine 5% 1 patch topical DAILY lidocaine HCl 2% 1 appl mucous membrane BID PRN 30 days linaclotide (Linzess) 290 mcg PO QAM lorazepam (Ativan) 1 mg PO ONCE PRN montelukast 10 mg PO DAILY nebulizer accessories NEBULIZER FACE MASK ADULT, USE DIRECTED nebulizers (AeroEclipse II Nebulizer) As directed pioglitazone 45 mg PO DAILY 90 days polyethylene glycol 3350 (Miralax) 17 grams PO DAILY 30 days prednisone 10 mg PO DIRECTED 8 days sertraline 50 mg PO DAILY PRN sertraline 100 mg PO DAILY PRN Shower Chair As directed silver sulfadiazine 1% (Silvadene) 1 appl topical DAILY 2 weeks simethicone 125 mg PO BID-QID PRN solifenacin (Vesicare) 5 mg PO DAILY 30 days tirzepatide (Mounjaro) mg subcut [toilet seat elevator As directed] zolpidem 5 mg PO BEDTIME PRN Tobacco use date assessed: 07/30/24 Dental Screening Dental Screen Date: 07/30/24 Did you have a dental visit in the last 12 months?: Yes Did you have a dental problem in the last 6 months where you did not have access to dental care?: No Was dental information given to patient?: Patient has dentist HPI HPI Comments History of Present Illness Details The patient is a 58-year-old female presenting with concerns regarding her cough and pending surgery for an umbilical hernia. The patient reports experiencing a persistent cough since Monday. Non quantified fever but no chills. Some expiratory wheezing and shortness of breath associated with cough. Had COVID test at home which turned out to be negative. The patient mentions a history of Type 2 Diabetes Mellitus but experienced vaginal burning due to the medication Invokana, leading to discontinuation. A1c of 8% which is not within goal and has follow-up with endocrinology this month. Currently on insulin pump. She is currently on atorvastatin for hypercholesterolemia, vitamin B12, Nexium, and Pepcid for GERD. Depression and insomnia are managed by Psychiatry with SSRIs. On vitamin-D supplements for her low vitamin-D and vitamin-D levels will be done for next office visit. Asthma is follow by pulmonology. She also has hearing loss and use hearing aids. 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 Pernicious anemia Hearing loss Insomnia Depression with anxiety Moderate asthma Essential hypertension Polyarthralgia GERD (gastroesophageal reflux disease) Diabetes Hearing loss Surgical History History of cholecystectomy History of umbilical hernia repair History of foot surgery History of carpal tunnel release History of surgery on arm History of endometrial ablation History of tubal ligation Family History Mother Breast cancer Paternal Grandmother Breast cancer Brother Colon cancer Family/Other FH: mental illness Mental health disorder Father CAD (coronary artery disease) Social History Household Members: Children Housing: Apartment Are you a primary day care director to a significant other at home: No Do you presently have visiting nurse or other home services: Yes (GREEN CHAIN OPERATOR) Alcohol intake: never Patient Tobacco Use Status: Never used Tobacco e-Cigarette/Vaping Use: Never Used Second Hand Smoke Exposure: No service: No Current occupational status: disabled Current occupation: Right hand dominate Cognitive needs: No Hearing needs: No Vision needs: Yes Female Reproductive History Menstrual Age of Menarche: 11 Questionnaire PHQ-9 Over the last 2 weeks, how often have you been bothered by any of the following problems? 1. Little interest or pleasure in doing things: not at all 2. Feeling down, depressed, or hopeless: not at all 3. Trouble falling or staying asleep, or sleeping too much: not at all 4. Feeling tired or having little energy: not at all 5. Poor appetite or overeating: not at all 6. Feeling bad about yourself - or that you are a failure or have let yourself or your family down: not at all 7. Trouble concentrating on things, such as reading the newspaper or watching television: not at all 8. Moving or speaking so slowly that other people could have noticed. Or the opposite - being so fidgety or restless that you have been moving around a lot more than usual: not at all 9. Thoughts that you would be better off or of hurting yourself in some way: not at all Total score: 0 Depression Screening Interpretation: Negative Depression Screening Done: Yes 42288 - PHQ-9 Billing: Yes Source: Developed by Drs. Hernandez Love, Rebecca Peacock, Kalyan Becker and colleagues, with an educational julio from [employer]. Thrive Questionnaire Date Thrive assessed: 07/30/24 I am a: Patient What is your living situation today?: I have a steady place to live Within the past 12 months, did the food you bought not last and you didn't have the money to get more?: Never true Within the past 12 months, did you worry whether your food would run out before you got money to buy more?: Never true Do you have trouble paying for medicines?: No Do you have trouble getting transportation to medical appointments?: No Do you have trouble paying your heating and electricity bill?: No Do you have trouble taking care of your child, family member or friend?: No Do you have trouble with day-to-day activities such as bathing, preparing meals, shopping, managing finances, etc.?: No Are you currently unemployed and looking for a job?: No Are you interested in more education?: No Please select the resources that you would like help with: None Currently or been in a relationship where the following occur: No concerns reported THRIVE Score: 0 AUDIT C Alcohol Use Questionnaire (AUDIT-C) 1. How often do you have a drink containing alcohol?: Never Total Score: 0 LIANA-7 AMB Questionnaire LIANA-7 Date LIANA - 7 assessed: 07/30/24 Feeling nervous, anxious, or on edge: 0 = Not at all Not being able to stop or control worryin = Not at all Worrying too much about different things: 0 = Not at all Trouble relaxin = Not at all Being so restless that it is hard to sit still: 0 = Not at all Becoming easily annoyed or irritable: 0 = Not at all Feeling afraid as if something awful might happen: 0 = Not at all Total LIANA-7 score (0-4 normal; 5-9 mild; 10-14 moderate; 15-21 severe): 0 Source: Developed by Drs. Hernandez Love, Rebecca Peacock, Kalyan Becker and colleagues, with an educational julio from [employer]. LIANA-7 Assessment Billing LIANA-7 Assessment Tool: LIANA-7 Assessment 89465 Review of Systems Const All systems reviewed & are unremarkable except as noted in HPI and below Card Denies chest pain at rest, Denies chest pain with activity, Denies edema, Denies irregular heart rhythm, Denies claudication, Reports dyspnea, Reports dyspnea on exertion, Denies orthopnea, Denies paroxysmal nocturnal dyspnea and Denies slow heart rate Resp Reports chest congestion, Reports cough, Reports excessive phlegm production, Reports dyspnea, Reports dyspnea on exertion and Reports wheezing GI Denies abdominal pain, Denies change in bowel habits, Denies excessive flatus, Denies nausea and Denies vomiting Aller/Immun Reports wheezing Physical exam (Primary Care) Vital Signs: Last Vital Signs BP 122/68 07/30/24 11:13 BMI result Body Mass Index 31.3 BMI Assessment/Plan discussion: High BMI High, discussed plan: lifestyle, weight reduction, dietary and physical activity Tobacco/Smoking Status: Tobacco use Status Tobacco use date assessed 07/30/24 07/30/24 11:20 Patient Tobacco Use Status Never used Tobacco 07/30/24 11:20 e-Cigarette/Vaping Use Never Used 07/30/24 11:20 PHQ-9: PHQ-9 Score PHQ-9: Total score 0 07/30/24 11:20 Depression Screening Interpretation: Negative Thrive Assessment: Date of Thrive Assessment Date Thrive assessed 07/30/24 07/30/24 11:20 Currently or been in a relationship where the following occur: No concerns reported Resp Auscultation: rhonchi and wheezes Cardio Jugular venous distension: no JVD Rate: regular rate Rhythm: regular rhythm Heart sounds: S1 normal heart sound present and S2 normal heart sound present Extrem General: Yes full ROM Results AMB Hemoglobin A1c AMB Hemoglobin A1c 8.0 % Last Edit by NACHO Oneil on 07/30/24 11:2 8 Coding Level of Care Code Est Pt Level 4 (66787) Complex EM visit Add On G2211 Diagnoses Bronchitis J40 Hyperlipidemia LDL goal <70 E78.5 Type 2 diabetes mellitus with diabetic polyneuropathy, with long-term current use of insulin E11.42; Z79.4 Diabetes mellitus intermediate insulin use: with long term care social worker use Moderate recurrent major depression F33.1 half-way (current) use of insulin Z79.4 Hearing loss H91.90 Essential hypertension I10 Moderate persistent asthma without complication J45.40 Asthma persistence: persistent Asthma complication type: uncomplicated Gastroesophageal reflux disease without esophagitis K21.9 Esophagitis presence: without esophagitis Hypovitaminosis D E55.9 Additional Codes PHQ-9 - 76677 - PHQ-9 Billing: Yes ([id number]) LIANA-7 Assessment Billing - LIANA-7 Assessment Tool: LIANA-7 Assessment 30645 ([id number]) Time Spent (min) 23 Assessment & Plan Assessment & Plan (1) Bronchitis: Code(s): J40 - Bronchitis, not specified as acute or chronic Category: Medical (2) Hyperlipidemia LDL goal <70: Code(s): E78.5 - Hyperlipidemia, unspecified Category: Medical (3) Type 2 diabetes mellitus with diabetic polyneuropathy: Code(s): E11.42 - Type 2 diabetes mellitus with diabetic polyneuropathy Category: Medical Qualifiers: Diabetes mellitus long term care social worker insulin use: with intermediate use Qualified Code(s): E11.42 - Type 2 diabetes mellitus with diabetic polyneuropathy; Z79.4 - half-way (current) use of insulin (4) Moderate recurrent major depression: Code(s): F33.1 - Major depressive disorder, recurrent, moderate Category: Medical (5) half-way (current) use of insulin: Code(s): Z79.4 - terminal block assembler (current) use of insulin Category: Medical (6) Hearing loss: Code(s): H91.90 - Unspecified hearing loss, unspecified ear Category: Medical (7) Essential hypertension: Code(s): I10 - Essential (primary) hypertension Category: Medical (8) Moderate asthma: Code(s): J45.909 - Unspecified asthma, uncomplicated Category: Medical Qualifiers: Asthma persistence: persistent Asthma complication type: uncomplicated Qualified Code(s): J45.40 - Moderate persistent asthma, uncomplicated (9) GERD (gastroesophageal reflux disease): Code(s): K21.9 - Gastro-esophageal reflux disease without esophagitis Category: Medical Qualifiers: Esophagitis presence: without esophagitis Qualified Code(s): K21.9 - Gastro-esophageal reflux disease without esophagitis (10) Hypovitaminosis D: Code(s): E55.9 - Vitamin D deficiency, unspecified Category: Medical Plan - Current management of Type 2 Diabetes Mellitus includes monitoring and consideration of revised treatment due to past medication side effects. - Pain management and respiratory symptom visit to Pulmonology scheduled for August. - Order chest X-ray to evaluate current respiratory condition. - Plan for antibiotic treatment due to recent respiratory concerns discussed. - Monitor and update the patient on scheduling of umbilical hernia surgery. - Ongoing management of GERD with current medications. Patient was informed and verbally consented to the use of an ambient scribe for clinic note documentation during this visit. I discussed with the patient her ongoing concerns regarding a persistent cough and delay in surgical intervention for an umbilical hernia. The patient acknowledged the need for a further chest X-ray and agreed to start antibiotics to address potential respiratory infection. We reviewed her May CT findings and discussed the follow-up with the Machine Shop Supervisor scheduled in August. Additionally, we discussed the importance of scheduling her pending surgical procedure to prevent any further complications from her umbilical hernia. Orders: Orders XR chest 2V Today J40 - Bronchitis, not specified as acute or chronic SARS-CoV2/FLU/RSV Today R09.89 - Other specified symptoms and signs involving the circulatory and respiratory systems AMB Hemoglobin A1c Today E11.42 - Type 2 diabetes mellitus with diabetic polyneuropathy, Z79.4 - half-way (current) use of insulin Medications: New azithromycin Take 2 tabs the first day, then 1 tab for the next 4 days 250 mg PO DAILY 5 days 6 tabs 0RF Refilled prednisone Take 4 tabs for 2 days, then 3 tabs for 2 days, then 2 tabs for 2 days, then 1 tab for 2 days 10 mg PO DIRECTED 8 days 20 tabs 0RF Patient Instructions: - Take antibiotics as prescribed to address respiratory symptoms. - Follow up with Pulmonology in August as planned. - Schedule an appointment with a surgeon to address pending umbilical hernia surgery. - Seek medical attention if respiratory symptoms worsen or new symptoms arise. - Continue current medications for diabetes and GERD as prescribed.
[2024-07-30 11:13] VITALS: BP 122/68; BMI 31.3
--- OUTSIDE RECORDS SUMMARY | 2024-07-30 12:06 | XMS_ITS | Data Portability ---
Author Organization [place] - [facility], Allergy Address [address] [address] Care Team Providers Care Shade Matcher Name Role Phone LUIS M GILLIAM Primary Care Provider Assessment Encounter Date Assessment Date Assessment LastModified by Organization Details LastModified Time 05/28/2024 05/28/2024 58 year old female with SNHL and TMJ presents for evaluation of ear blockage bilaterally. Otologic exam demonstrates TMs are intact with well-aerated middle ear spaces. EACs without obstruction. Tympanometry is type A bilaterally. Her hearing aids from [facility] were sent for adjustment. Recommend she trial the adjusted hearing aids. She will return for audiometric testing if abnormal auditory perception persists. Today we spent some time talking about the fact that cerumen is a natural antibiotic, antifungal, claims account manager, and moisturizer of the delicate external auditory canal skin. The use of Q-tips strips away this natural protection and makes the ear canal skin more likely to become itchy, irritated or become infected. There is also the risk of trauma to the tympanic membranes as well. We discussed proper aural hygiene techniques to maintain the health of the external ears. The patient's auricular discomfort may also be related to intermittent inflammation of the jaw joint or spasm of the surrounding musculature. I recommended the patient use light massage, warm compresses and anti-inflammato shane for symptomatic management. Stressed chewing evenly on both sides of the mouth to keep from overworking the jaw joint. Use soft food diet as needed. [email or web address] Not available 05/28/2024 11:10:20 Plan of Treatment Reminders Order Date Submit Date Provider Last Modified By Organization Details Last Modified Time Details Appointments None record ed. Lab None record ed. Referral None record ed. Procedures None record ed. Surgeries None record ed. Imaging None record ed. Medication Orders None record ed. Patient TargetsNo targets recorded. Patient InstructionsNo instructions recorded. Reason for Referral None Reported. Results Created Date Observation Date Name Description Value Unit Range Abnormal Flag Note LastModifiedBy Organization Detail LastModifiedTime 05/28/20 24 audio gram No observ ation record ed. BARCODE Not Available 2023 11:02:31 Result Notes None recorded. Problems Name Problem SNOMED Code Status Onset Date Resolution Date Notes Provider Name and Address Organization Details Recorded Time Sensorine ural hearing loss of bilateral ears 636458435 Active 2018 Sensorine ural hearing loss, bilateral ; Note: Date Diagnosed : 03/28/2019 3:34 PM (H90.3) Not Available [facility] 4 02:33:25 Pain of right temporoma ndibular joint [id number] 342271 Active 2019 Arthralgi a of right temporoma ndibular joint; Note: Date Diagnosed : 0 3:09 PM (M26.621) Not Available [facility] 4 02:33:24 Abrasion of skin of left ear 51804322251 322211 Active 2018 Abrasion of left ear, initial encounter ; Note: Date Diagnosed : 03/28/2019 2:58 PM (S00.412A ) Not Available [facility] 4 02:33:25 Bilateral temporoma ndibular joint pain 82281670340 070207 Active 2021 Arthralgi a of bilateral temporoma ndibular joint; Note: Date Diagnosed : 08/26/2021 4:41 PM (M26.623) Not Available [facility] 4 02:33:30 Foreign body in left ear [id number] 580228 Active 2018 Foreign body in left ear, initial encounter ; Note: Date Diagnosed : 03/28/2019 2:58 PM (T16.2XXA ) Not Available [facility] 4 02:33:35 Abnormal auditory perceptio n 10668688 Active 2023 Leonie wharton [place] - [facility] 4 10:43:01 Problem Notes None recorded. Procedures Surgical History Date Name Laterality Status Provider Name and Address Organization Details Recorded Time 05/28/20 24 Tympanometry (58296) completed Leonie Peña [place] - [facility] 05/28/2024 10:42:54 Imaging Results Imaging Date Name Status LastModified by Organiz ation Details LastModified Time 05/28/2024 audiogram completed BARCODE Information no t available 05/28/2024 11:02:31 Procedure Notes None recorded. Medical Equipment None Reported. Allergies Allergen ID Allergen Name Allergen Category Reaction Reaction Severity Criticality Documentation Date Start Date Code Code System Note Provider Name and Address Organization Details Recorded Time penicilli n V potassium medicatio n other Not available Not available 11/14/2023 5 RxNorm React ion: unkno wn, unspe cifie d;; Not Available [facility]04[facility] Medications Name Sig Start Date Stop Date Status Note LastModified by Organization Details LastModified Time cyclobenz aprine 10 mg tablet 2018 active Medicati on ID: [id number] D uration Value: 20 Brand Name: tish smith Send Method: E-Prescr ibed Sub s Allowed: subs OK Medic ationGen ericName : cycloben zaprine Not Available Not Available Not Available atorvasta tin 40 mg tablet TAKE 1 TABLET BY MOUTH AT BEDTIME FOR 90 DAYS active Not Available Not Available No t Available silver sulfadiaz ine 1 % topical cream USE 1 APPLICAT ION TOPICALL Y DAILY FOR 2 WEEKS APPLY A 1.5 MM THICKNES S 05/28 completed Not Available Not Available Not Available prednison e 10 mg tablet TAKE 4 TABS FOR 2 DAYS, THEN 3 TABS FOR 2 DAYS, THEN 2 TABS FOR 2 DAYS, THEN 1 TAB FOR 2 DAYS 05/28 completed Not Available Not Available Not Available atorvasta tin 20 mg tablet 05/28 completed Medicati on ID: [id number] D uration Value: 30 Brand Name: atorvast atin Sen d Method: E-Prescr ibed Sub s Allowed: subs OK Speci al Instruct ion: TOME DIANA TABLETA TODOS LOS D? Med icationG enericNa me: atorvast atin Not Available Not Available Not Available clindamyc in HCl 300 mg capsule TAKE 1 CAPSULE BY MOUTH 3 TIMES A DAY FOR 7 DAYS 05/28 completed Not Available Not Available Not Available albuterol sulfate 2.5 mg/3 mL (0.083 %) solution for nebulizat ion INHALE 2.5 MG (3 ML) BY NEBULIZE R EVERY 4 TO 6 HOURS NEEDED FOR BRONCHOS PASM active Not Available Not Available No t Available azithromy dickson 250 mg tablet TAKE 2 TABLETS BY MOUTH TODAY, THEN TAKE 1 TABLET DAILY FOR 4 DAYS DIRECTED 05/28 completed Not Available Not Available Not Available Lidocaine Viscous 2 % mucosal solution APPLY TO MUCOSAL AREA 2 TIMES A DAY NEEDED FOR PAIN FOR 30 DAYS active Not Available Not Available No t Available FreeStyle Lancets 28 gauge USE DIRECTED EVERY 4 HOURS active Not Available Not Available No t Available phenazopy ridine 200 mg tablet TAKE 1 TABLET BY MOUTH 3 TIMES A DAY FOR 6 DAYS active Not Available Not Available No t Available prednison e 20 mg tablet TAKE 2 TABLETS BY MOUTH DAILY FOR 5 DAYS, THEN 1 TABLET DAILY FOR 5 DAYS 05/28 completed Not Available Not Available Not Available sertralin e 100 mg tablet TAKE 2 TABLET BY MOUTH ONCE A DAY TOGETHER WITH A 50MG TABLET. TOTAL DOSE 150MG. active Not Available Not Available No t Available pioglitaz one 45 mg tablet TAKE 1 TABLET BY MOUTH EVERY DAY FOR 90 DAYS active Not Available Not Available No t Available ciproflox acin 500 mg tablet 05/28 completed Medicati on ID: [id number] B rand Name: ciproflo xacin HCl Send Method: E-Prescr ibed Sub s Allowed: subs OK Medic ationGen ericName : ciproflo xacin HCl Not Available Not Available Not Available sulfameth oxazole 800 mg-trimet hoprim 160 mg tablet TAKE 1 TABLET BY MOUTH TWICE A DAY 05/28 completed Not Available Not Available Not Available Miconazol e-7 2 % vaginal cream PLACE 1 APPLICAT ION VAGINALL Y EVERY DAY AT BEDTIME FOR 7 DAYS 05/28 completed Not Available Not Available Not Available ofloxacin 0.3 % ear drops 05/28 completed Medicati on ID: [id number] B rand Name: ofloxaci n Send Method: E-Prescr ibed Sub s Allowed: subs OK Medic ationGen ericName : ofloxaci n Not Available Not Available Not Available famotidin e 20 mg tablet TAKE 1 TABLET AT BEDTIME active Not Available Not Available No t Available lorazepam 0.5 mg tablet TAKE 1 TABLET BY MOUTH EVERY DAY NEEDED active Not Available Not Available No t Available metoclopr amide 5 mg tablet 2018 active Medicati on ID: [id number] D uration Value: 30 Brand Name: metoclop ramide HCl Send Method: E-Prescr ibed Sub s Allowed: subs OK Speci al Instruct ion: TOME DIANA TABLETA TODOS LOS D? Med icationG enericNa me: metoclop ramide HCl Not Available Not Available Not Available benzonata te 100 mg capsule TAKE 1 CAPSULE BY MOUTH 2 TIMES A DAY NEEDED FOR COUGH FOR 5 DAYS 05/28 completed Not Available Not Available Not Available insulin aspart U-100 100 unit/mL subcutane ous solution USE UP TO 90 UNITS DAILY BY PUMP SUBCUTAN EOUSLY DIRECTED active Not Available Not Available No t Available pantopraz ole 40 mg tablet,de layed release TAKE 1 TABLET HALF AN HOUR BEFORE BREAKFAS T DAILY active Not Available Not Available No t Available cyanocoba fatmata (vit B-12) 1,000 mcg/mL injection solution 05/28 completed Medicati on ID: [id number] B rand Name: cyanocob alamin (vitamin B-12) Se nd Method: E-Prescr ibed Sub s Allowed: subs OK Medic ationGen ericName : cyanocob alamin (vitamin B-12) Not Available Not Available Not Available esomepraz ole magnesium 40 mg capsule,d elayed release active Not Available Not Available Not Available omeprazol e 20 mg capsule,d elayed release 2018 active Medicati on ID: [id number] D uration Value: 30 Brand Name: omeprazo le Send Method: E-Prescr ibed Sub s Allowed: subs OK Medic ationGen ericName : omeprazo le Not Available Not Available Not Available monteluka st 10 mg tablet TAKE 1 TABLET BY MOUTH EVERY DAY active Not Available Not Available No t Available zolpidem 5 mg tablet TAKE 1 TABLET BY MOUTH EVERY DAY AT BEDTIME NEEDED active Not Available Not Available No t Available lorazepam 1 mg tablet PLEASE SEE ATTACHED FOR DETAILED DIRECTIO NS 05/28 completed Not Available Not Available Not Available insulin lispro (U-100) 100 unit/mL subcutane ous solution FOR 30 DAYS UP TO 45 UNITS PER DAY VIA PUMP USE DIRECTED active Not Available Not Available No t Available levofloxa dickson 500 mg tablet TAKE 1 TABLET BY MOUTH EVERY DAY FOR 5 DAYS 05/28 completed Not Available Not Available Not Available sertralin e 50 mg tablet TAKE 1 TABLET BY MOUTH ONCE A DAY TOGETHER WITH A 100 TABLET. TOTAL DOSE 150MG. 05/28 completed Not Available Not Available Not Available doxycycli ne hyclate 100 mg tablet TAKE 1 TABLET BY MOUTH TWICE A DAY FOR 5 DAYS 05/28 completed Not Available Not Available Not Available Ketostix strips DIRECTED active Not Available Not Available No t Available Ventolin HFA 90 mcg/actua tion aerosol inhaler INHALE 2 PUFFS BY MOUTH EVERY 4 TO 6 HOURS NEEDED FOR SHORTNES S OF BREATH OR FOR WHEEZE active Not Available Not Available No t Available insulin lispro (U-100) 100 unit/mL subcutane ous pen INJECT 6 - 8 UNITS SUBCUTAN EOUSLY 3 TIMES A DAY 05/28 completed Not Available Not Available Not Available Concord Saline 0.65 % nasal spray aerosol 05/28 completed Medicati on ID: [id number] B rand Name: Concord Saline S end Method: E-Prescr ibed Sub s Allowed: subs OK Medic ationGen ericName : Concord Saline Not Available Not Available Not Available solifenac in 5 mg tablet TAKE 1 TABLET BY MOUTH EVERY DAY active Not Available Not Available No t Available Advair HFA 115 mcg-21 mcg/actua tion aerosol inhaler INHALE 2 PUFFS EVERY 12 HOURS 05/28 completed Not Available Not Available Not Available Advair HFA 230 mcg-21 mcg/actua tion aerosol inhaler INHALE 2 PUFFS EVERY 12 HOURS active Not Available Not Available No t Available cholecalc iferol (vitamin D3) 25 mcg (1,000 unit) tablet TAKE 1 TABLET BY MOUTH EVERY DAY active Not Available Not Available No t Available hydrochlo rothiazid e 12.5 mg tablet TAKE 1 TABLET BY MOUTH EVERY DAY IN THE MORNING active Not Available Not Available No t Available FreeStyle Lite Strips DIRECTED 4 TIMES A DAY active Not Available Not Available No t Available Lantus Solostar U-100 Insulin 100 unit/mL (3 mL) subcutane ous pen INJECT 42 UNIT (0.42 ML) SUBCUTAN EOUSLY DAILY FOR 90 DAYS active Not Available Not Available No t Available Linzess 290 mcg capsule TAKE 1 CAPSULE BY MOUTH EVERY DAY IN THE MORNING 05/28 completed Not Available Not Available Not Available Invokana 100 mg tablet TAKE 1 TABLET BY MOUTH EVERY DAY active Not Available Not Available No t Available cyanocoba fatmata (vit B-12) 500 mcg disintegr ating tablet,rivero blingual TAKE 1 TABLET BY MOUTH SUBLINGU ALLY ONCE A DAY FOR 90 DAYS active Not Available Not Available No t Available Trulicity 0.75 mg/0.5 mL subcutane ous pen injector 2018 active Medicati on ID: [id number] D uration Value: 28 Brand Name: Skyler villaseñor Send Method: E-Prescr ibed Sub s Allowed: subs OK Medic ationGen ericName : Anait y Not Available Not Available Not Available Baqsimi 3 mg/actuat ion nasal spray INHALE 3 MG INTO THE NOSTRIL ONCE active Not Available Not Available No t Available Paxlovid 300 mg (150 mg x 2)-100 mg tablets in a dose pack TAKE 2 TABLETS (NIRMATR CHANTAL) AND TAKE 1 TABLET (RITONAV IR) BY MOUTH TWICE A DAY FOR 5 DAYS 05/28 completed Not Available Not Available Not Available Mounjaro 5 mg/0.5 mL subcutane ous pen injector INJECT 0.5 ML (5 MG) SUBCUTAN EOUSLY WEEKLY active Not Available Not Available No t Available Vitals None Recorded Social History None recorded. Functional Status None recorded. Mental Status None recorded. Family History Nothing Reported. Medical History No medical history recorded. Gynecological HistoryNo gynecological history recorded. Obstetrics History GPAL:G 0 P 0 0 0 0 Past Encounters Encounter ID Performer Location Encounter Start Date Encounter Closed Date Diagnosis/Indication Diagnosis SNOMED-CT Code Diagnosis ICD10 Code Diagnosis Note [id number] MERRILL IRIZARRY MD [facility] [address] [address] 05/28/2024 10:13:26 05/28/2024 11:00:06 Abnormal auditory perception [id number] H93.299 Tympanomet ry: Right Ear:{{Type A* Type As Type Ad Type C Type C, shallow & rounded Ty pe B Type B with large volume Cou ld not maintain a hermetic seal}} Left Ear:{{Type A* Type As Type Ad Type C Type C, shallow & rounded Ty pe B Type B with large volume Cou ld not maintain a hermetic seal}} Bilateral temporomandibular joint pain [id number] 4293703 M26.623 Sensorineu ral hearing loss of bilateral ears [id number] H90.3 Health Concerns Section Related Observation LastModified by Organization Detai ls LastModified Time None Recorded Concern Status LastModified by Organization Details LastModified Time None Recorded Advance Directives Directive None Recorded Payers Encounter Date Sequence Insurance Name Policy Number Policy Gamino Covered Member ID Gamino Member ID Guarantor Name 05/28/2024 1 [facility] HEALTH NET PLAN (MEDICAID HMO) JAIDEN Durham [id number] Mellisa Durham Notes Date Note Type Note Provider Name and Address Organization Details Recorded Time 05/28/2024 text/html 58 year old female presents for evaluation of the ears. She reports bilateral ear blockage for one month. She is concerned there is cotton from a Q-tip stuck in her right ear. Denies otalgia, otorrhea, or hearing changes otherwise. She had Covid 3 months ago and was told she had fluid in her ears at that time. Reports history of ear infections. She has hearing aids from [facility] that she recently sent for adjustments. She has not worn them in 2 years. Occasional buzzing sounds bilaterally. MERRILL IRIZARRY MD [address] [place] [address], [id number] - [facility] 05/28/2024 17:20:37 OBGyn Episode No OBEpisode recorded.
--- OUTSIDE RECORDS SUMMARY | 2024-07-30 12:06 | XMS_ITS | Clinical Summary ---
Author Organization [facility] Address [address] [place] [address] Care Team Providers Care Lens Maker Name Role Phone Unavailable Primary Care Provider Unavailabl e Source Comments PLEASE NOTE, if this patient is a minor, it may be UNLAWFUL to discuss sensitive information that is contained in these records (such as FAMILY PLANNING, MENTAL HEALTH or SUBSTANCE ABUSE) with the minor patient's parent or other person without the patient's specific authorization.[facility] Immunizations Name Administration Dates Next Due Moderna COVID-19 Vaccine, re d cap blue label, 12+ Primary Series 11/04/2020,10/07/2020 Social History Tobacco Use Types Packs/Day Years Used Date Smoking Tobacco: Never Assessed Social Connections Answer Date Recorded Social Connections and Isolation 0 10/07/2020 Financial Resource Strain Answer Date R ecorded Financial Resource Strain 0 2020 Stress Answer Date Recorded Stress 0 10/07/2020 Physical Activity Answer Date Recorded Physical Activity 0 10/07/2020 Food Insecurity Answer Date Recorded Food 0 10/07/2020 Transportation Needs Answer Date Record ed Transportation 0 10/07/2020 Housing Stability Answer Date Recorded Housing 0 10/07/2020 Safety and Environment Answer Date Del rded Safety 0 10/07/2020 Utilities Answer Date Recorded Utilities 0 10/07/2020 Employment Answer Date Recorded Employment 0 10/07/2020 Comments Unknown Sex and Gender Information Value Date Recorded Sex Assigned at Not on file Legal Sex Female 6:05 AM PDT Gender Identity Not on file Sexual Orientation Not on file Plan of Treatment Health Maintenance Due Date Last Done Comments Diabetes Screening 1964 HPV Screening 1964 Hepatitis C Screening 1964 Lipid Screening 1964 Pap + HPV 1964 Tobacco Screening 1964 HIV Screening 11/29/1979 Annual Preventive Care Visit 1982 Hypertension Screening (#1) 1982 Imm-Hepatitis B (1 of 3 - 19 + 3-dose series) 11/29/1983 Cervical Cancer Screening 1985 Pap Smear 1985 Breast Cancer Screening (Mammogram) 2004 CT Colonography 2009 Colonoscopy 2009 Colorectal Cancer Screening 2009 FIT/gFOBT 2009 Fecal DNA 2009 Flexible Sigmoidoscopy 2009 Imm-Zoster, Recombinant (1 of 2) 2014 Alcohol and Drug Screen 07/03/2023 Depression Annual Screen 07/03/2023 [id number] ( season) 2024 021, 10/07/2020 Imm-Influenza (#1) 2024 04/04/2019, 05/30/2018 Imm-DTaP/Tdap/Td (2 - Td or Tdap) 01/06/2030 020, 07/08/2015 Cervical Ablation/Cold-Knife Conization Discontinued Cervical Cryotherapy Discontinued Colposcopy Discontinued Endometrial Biopsy Discontinued Excision/Leep Discontinued HPV Genotyping Discontinued Vaginal Pap Discontinued Vulvoscopy Discontinued Insurance [facility] [employer] [facility] Member Subscriber Plan / Payer (Ef fective 2020-Present) Name:Mellisa Durham Relation to Subscriber:Self Name:Mellisa Durham Payer ID:[id number] Group ID:[id number] Type:Medicaid Address: [facility] [address] [place] [address]
--- OUTSIDE RECORDS SUMMARY | 2024-07-30 12:06 | XMS_ITS | Clinical Summary ---
Author Organization [employer] [facility] ity Address [address] [place] [address] Care Team Providers Care Theatre Director Name Role Phone Unavailable Primary Care Provider Unavailabl e Social History Tobacco Use Types Packs/Day Years Used Date Smoking Tobacco: Never Assessed Sex and Gender Information Value Date Recorded Sex Assigned at Not on file Gender Identity Not on file Sexual Orientation Not on file Plan of Treatment Health Maintenance Due Date Last Done Comments Breast Cancer Screening 1964 DTaP,Tdap,and Td Vaccines (1 - Tdap) 11/29/1983 Hepatitis B Vaccines (1 of 3 - 19+ 3-dose series) 11/29/1983 Cervical Cancer Screening: P ap Smear 1985 Zoster Vaccines (1 of 2) 2014 COVID-19 Vaccine ( - 2023-2 5 season) 2024 Influenza Vaccine (#1) 2024 RSV Immunization Patients 60 + Years Old (1 - 1-dose 75+ series) 11/29/2039 HIB Vaccines Aged Out No longer eligi ble based on patient's age to complete this topic HPV Vaccines Aged Out No longer eligi ble based on patient's age to complete this topic Hepatitis A Vaccines Aged Out No long er eligible based on patient's age to complete this topic IPV Vaccines Aged Out No longer eligi ble based on patient's age to complete this topic MMR Vaccines Aged Out No longer eligi ble based on patient's age to complete this topic Meningococcal ACWY Vaccine Aged Out N o longer eligible based on patient's age to complete this topic Pneumococcal Vaccine: Pediat rics (0 to 5 Years) and At-Risk Patients (6 to 64 Years) Aged Out No longer eligible b ased on patient's age to complete this topic RSV Immunization Patients Un jeny 20 months Aged Out No longer eligible b ased on patient's age to complete this topic Varicella Vaccines Aged Out No longer eligible based on patient's age to complete this topic
== END 2024-07-30 11:37 | disposition home or self-care (01) ==
PROVIDERS: PCP Internal Medicine; Visit Provider Internal Medicine
DX: J40 Bronchitis, not specified as acute or chronic (principal); E78.5 Hyperlipidemia, unspecified; E11.42 Type 2 diabetes mellitus with diabetic polyneuropathy; Z79.4 Long term (current) use of insulin; F33.1 Major depressive disorder, recurrent, moderate; H91.90 Unspecified hearing loss, unspecified ear; I10 Essential (primary) hypertension; J45.40 Moderate persistent asthma, uncomplicated; K21.9 Gastro-esophageal reflux disease without esophagitis; E55.9 Vitamin D deficiency, unspecified

== ENCOUNTER → 2024-07-30 12:23 | Outpatient (BNV) | payer OTHER, SELFPAY | PROVIDERS: PCP Internal Medicine; Visit Provider Radiology Diagnostic Radiology | DX: J40 Bronchitis, not specified as acute or chronic (principal) | CPT/HCPCS: 71046 ==

== ENCOUNTER → 2024-08-01 13:40 | Outpatient (BNVA) | payer OTHER, SELFPAY | PROVIDERS: PCP Internal Medicine; Visit Provider Nurse Practitioner Adult Health | DX: E11.42 Type 2 diabetes mellitus with diabetic polyneuropathy (principal); Z79.4 Long term (current) use of insulin | CPT/HCPCS: 82947; 99212 ==

== ENCOUNTER 2024-08-20 07:37 | Outpatient (REF) | payer OTHER, SELFPAY ==
--- NOTE | ~2024-08-20 | FL_ITS ---
EXAMINATION: XR FLUOROSCOPY UPPER GI WITH AIR CLINICAL INFORMATION: Reflux. Dysphagia. COMPARISON: Barium swallow 2020 TECHNIQUE: Fluoroscopic air contrast upper GI examination was performed utilizing standard techniques with thin and thick barium and effervescent granules. Numerous spot images were obtained. FINDINGS: Lateral cine images of the oropharynx and hypopharynx demonstrate normal swallow mechanism with normal epiglottic inversion and soft palate elevation. No tracheal penetration, glottic or subglottic aspiration identified. No nasopharyngeal reflux present. Hypopharyngeal structures appear normal without evidence of mass or diverticulum. There is mild cricopharyngeal achalasia. Dual and single contrast images of the esophagus demonstrate normal caliber and contour. There is felinization of the mid esophageal mucosa. No evidence of stricture, mass, or ulcerations identified. Esophageal peristalsis is severely disorganized. No evidence of hiatus hernia identified. No significant gastroesophageal reflux was seen during the course of the examination and on reflux views. Dual contrast and single contrast images of the stomach demonstrated a normal contour. There are multiple small well-circumscribed filling defects in the body and antrum of the stomach that may represent small hyperplastic polyps. No masses are present. Contrast freely passed into the gastric antrum and duodenal bulb without delay. Single and air-contrast images of the duodenal bulb demonstrate no abnormality. The duodenal sweep has a normal appearance, course, and mucosal fold appearance. The imaged proximal jejunum has a normal fold pattern and caliber. FLUOROSCOPY TIME: 4 minutes 42 seconds Number of Spot Images: 9 Number of Cine: 15 DOSE AREA PRODUCT: 2860 uGy-m2 (microgray-meter squared) FL/FL upper GI w air w Ba Swallow IMPRESSION: 1. Mild cricopharyngeal achalasia. 2. Felinization of the mid esophageal mucosa. This is a benign finding associated with chronic gastroesophageal reflux. While gastroesophageal reflux was present during this examination, it was previously seen on the 2020 examination. 3. Severe esophageal dysmotility. 4. Multiple small well-circumscribed filling defects in the body and antrum of the stomach. These probably represent small hyperplastic polyps, however, small mucosal ulcerations cannot be excluded. Recommend correlation with EGD. This procedure was performed by Manjinder Silva PA-C, and supervised by Dr. Gomes Electronically signed by: Chinmay Gomes MD 08/21/2024 10:01 AM NAOMI WATSON
--- OUTSIDE RECORDS SUMMARY | 2024-08-20 07:39 | XMS_ITS | Clinical Summary ---
Author Organization [facility] Address [address] [place] [address] Care Team Providers Care Senior Analyst Name Role Phone Unavailable Primary Care Provider Unavailabl e Social History Tobacco Use Types Packs/Day Years Used Date Smoking Tobacco: Never Assessed Comments Unknown Sex and Gender Information Value Date Recorded Sex Assigned at Not on file Legal Sex Female 4:53 PM EST Gender Identity Not on file Sexual Orientation Not on file Plan of Treatment Health Maintenance Due Date Last Done Comments Breast Cancer Screening 1964 DTaP,Tdap,and Td Vaccines (1 - Tdap) 11/29/1983 Hepatitis B Vaccines (1 of 3 - 19+ 3-dose series) 11/29/1983 Cervical Cancer Screening: P ap Smear 1985 Pneumococcal Vaccine: 50+ Ye ars (1 of 1 - PCV) 2014 Zoster Vaccines (1 of 2) 2014 COVID-19 Vaccine (2023-2 5 season) 2024 Influenza Vaccine (#1) 2024 [...] patient's age to complete this topic Meningococcal B Vacine Aged Out No lo nger eligible based on patient's age to complete [...]
== END 2024-08-20 07:38 | disposition home or self-care (01) ==
LOC: HO.XRAY 07:37
PROVIDERS: PCP Internal Medicine; Visit Provider Nurse Practitioner Family
DX: K21.9 Gastro-esophageal reflux disease without esophagitis (principal)
CPT/HCPCS: 74246

== ENCOUNTER → 2024-08-20 07:39 | Outpatient (BNV) | payer OTHER, SELFPAY | PROVIDERS: PCP Internal Medicine; Visit Provider Physician Assistant Surgical | DX: R13.10 Dysphagia, unspecified (principal) | CPT/HCPCS: 74246; 74248 ==

== ENCOUNTER 2024-08-21 14:36 | Outpatient (AMB) | payer OTHER, SELFPAY ==
--- NOTE | 2024-08-21 09:48 | A.OFFVIS_ITS ---
Vital Signs 08/21/24 14:47 Height 5 ft 2 in Weight 171 lb 15.369 oz BMI 31.4 BP 138/76 Blood Pressure Location Rt brachial Position Sitting Pulse 80 Pulse Source Pulse Oximeter Pulse Oximetry (%) 98 Oxygen Delivery Method Room Air Intake Visit Reasons: DM Intake Note: Patient presents today for a follow-up on Type 2 Diabetes Mellitus: Last Diabetic eye exam was on: DUE Last Podiatry exam was on: Does not see a Honing Machine Operator Semiautomatic Most recent HbA1c: 8.0% 07/30/2024 Random Glucose- 209 mg/dL, Today Welder Operator Required: Yes Welder Operator Language: Pit Crew Support Worker Services: Welder Operator Present Welder Operator Name: NACHO Bruno/KI COLLINS Information Interpreted: non-clinical & clinical Accompanied by: Self / Same As Patient Allergies Penicillins Allergy (Mild, Verified 07/30/24 11:27) RASH/DYSPNEA canagliflozin [From Invokana] Adverse Reaction (Severe, Verified 08/21/24 16:27) uti metformin Adverse Reaction (Intermediate, Verified 07/30/24 11:27) stomach upset mounjaro Adverse Reaction (Intermediate, Uncoded 08/21/24 16:28) Abdominal Pain trulicity Adverse Reaction (Intermediate, Uncoded 08/21/24 16:28) Abdominal Pain HPI Comments Details: Patient is a 58 year old female with DM type 2 diagnosed around 2004 who presents for management of diabetes. She was last seen by myself on 08/01/24. 04/25/24 7.4% 07/30/24 8% had been on prednisone for 5 days prior to previous visit. Pre pump she was 8.3%. She has been having difficulty pairing her sensor to her pump and has been advised by her surgeon that she should not be using a pump for 3 months after surgery to allow for healing of the abdomen. She was having difficulty as the pump is in Greek and she does not read Greek and was not a good candidate for this pump. Previous intolerance to medications: Trulicity and Mounjaro due to abdominal pain Ilet insulin pump stopped pioglitazone 30 mg Invokana 100mg stopped due to UTI Lantus 35 units Humalog restart at 8 units Sensor was placed on patient today Freestyle Sandra 3+ and will send prescription to the pharmacy. She had difficulty with the Dexcom losing ruiz tooth and failing to capture, falling off early Hypoglycemia: infrequently Hyperglycemia: Ophthalmology evaluation: 10/2023 -cataract surgery in 01/2024 No nephropathy: 04/13/2024 microalbumin 11.0 eGFR>60 Neuropathy: no numbness, tingling, pain or cramping in the extremities saw podiatry two years ago Not on statin last LDL 78 04/13/2024 Has been evaluated by Cardiology for chest pain and dyspnea. Stress testing and cardiac echo ordered. She is preop for hernia repair once she is cleared by Cardiology. 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 Pernicious anemia Hearing loss Insomnia Depression with anxiety Moderate asthma Essential hypertension Polyarthralgia GERD (gastroesophageal reflux disease) Diabetes Hearing loss Surgical History History of cholecystectomy History of umbilical hernia repair History of foot surgery History of carpal tunnel release History of surgery on arm History of endometrial ablation History of tubal ligation Family History Mother Breast cancer Paternal Grandmother Breast cancer Brother Colon cancer Family/Other FH: mental illness Mental health disorder Father CAD (coronary artery disease) Social History Household Members: Children Housing: Apartment Are you a primary health care assistant to a significant other at home: No Do you presently have visiting nurse or other home services: Yes (LOGISTIC SPECIALIST) Alcohol intake: never Patient Tobacco Use Status: Never used Tobacco e-Cigarette/Vaping Use: Never Used Second Hand Smoke Exposure: No service: No Current occupational status: disabled Current occupation: Right hand dominate Cognitive needs: No Hearing needs: No Vision needs: Yes Female Reproductive History Menstrual Age of Menarche: 11 Physical Exam Vital Signs: BMI result Body Mass Index 31.4 Const Other: Absence of Cushingoid features. Absence of acromegalic features. Neck exam reveals nl size thyroid about 15 gms. No thyroid nodules palpable. No carotid bruits present. Lungs CTA. Heart S1 S2, Reg R/R. No M/R G. Skin exam reveals absence of vitiligo or acanthosis nigricans. No edema Visual exam of foot performed. No ulcerations or open lesions. No inter digit maceration or fissuring. No onychomycosis, no callouses. Sensation intact to monofilament exam. Vibratory sensation is normal with 128 Hz tuning fork. Quality Reporting (2019) Adult ([facility] 138/08/24/68) Smoking risk assessment performed?: Yes Patient Tobacco Use Status: Never used Tobacco Assessment & Plan Assessment & Plan (1) Type 2 diabetes mellitus with diabetic polyneuropathy: Code(s): E11.42 - Type 2 diabetes mellitus with diabetic polyneuropathy Category: Medical Qualifiers: Diabetes mellitus extermination inspector insulin use: with skilled nursing use Qualified Code(s): E11.42 - Type 2 diabetes mellitus with diabetic polyneuropathy; Z79.4 - 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 Plan: 58-year-old type 2 diabetic who was on an islet pump along with Invokana which was stopped secondary to UTI, takes pioglitazone. She also has GI intolerance to GLp-1 agonists with a recent A1c of 8% 07/30/24. She is not a good ilet pump candidate. She does not read finnish and had difficulty understanding how to use the pump and difficulty with sensor pairing. She will discontinue the pump. Continue Lantus at 35 units novolog 8-10 units rtc 7 days to eval sensor data. She is pre op for hernia repair in august. The patient had an opportunity to ask questions regarding treatment plan. The patient expressed understanding and agreement with the above treatment plan. The patient is aware they should contact our office by phone for worsening glucose readings or for any low blood sugars which may warrant a change in diabetes medication. Compliance is encouraged with medications and any followup testing/consults which may have been ordered. Downloaded Skycatch [address] sensor on patient. She is scanned the Skycatch support QR code Medications: New blood-glucose sensor (FreeStyle Sandra 3 Plus Sensor device) continuous sensor reapply every 15 days 2 ea 11RF insulin aspart U-100 8-10 units tid before meals subcutaneously use as directed; 90 days 30 mL 4RF pen needle, diabetic (BD Sondra 2nd Gen Pen Needle) 4 times daily 200 ea 6RF Changed From Lantus Solostar U-100 Insulin (insulin glargine) 42 units (0.42 mL) subcut DAILY 90 days 37.8 mL 1RF NS E11.65 - Type 2 diabetes mellitus with hyperglycemia To Lantus Solostar U-100 Insulin (insulin glargine) 35 units (0.35 mL) subcut DAILY 90 days 33 mL 3RF NS E11.65 - Type 2 diabetes mellitus with hyperglycemia Discontinued blood-glucose sensor (Dexcom G7 Sensor device) Discontinued Reason: Doctor's Order As directed change every 10 days 3 ea 5RF blood-glucose meter,continuous (Dexcom G7 Manager Infusion) Discontinued Reason: Doctor's Order As directed 1 ea 0RF insulin aspart U-100 (Novolog U-100 Insulin aspart) Discontinued Reason: Doctor's Order up to 90 units daily by pump subcutaneously use as directed; 90 days 90 mL 3RF Coding Level of Care Code Est Pt Level 5 (82962) Complex EM visit Add On G2211 Diagnoses Type 2 diabetes mellitus with diabetic polyneuropathy, with long-term current use of insulin E11.42; Z79.4 Diabetes mellitus skilled nursing insulin use: with extermination inspector use Time Spent (min) 50 Comment Time spent reviewing labs/provider notes, face to face, chart doc
--- OUTSIDE RECORDS SUMMARY | 2024-08-21 14:38 | XMS_ITS | Data Portability ---
Author Organization [place] - [facility], Allergy Address [address] [address] Care Team Providers Care Shuttler Name Role Phone LUIS M GILLIAM Primary Care Provider [phone] Assessment Encounter Date Assessment Date Assessment LastModified by Organization Details LastModified Time 05/28/2024 05/28/2024 58 year old female with SNHL and TMJ presents for evaluation of ear blockage bilaterally. Otologic exam demonstrates TMs are intact with well-aerated middle ear spaces. EACs without obstruction. Tympanometry is type A bilaterally. Her hearing aids from [facility] were sent for adjustment. Recommend she trial the adjusted hearing aids. She will return for audiometric testing if abnormal auditory perception persists. Today we spent some time talking about the fact that cerumen is a natural antibiotic, antifungal, lumber estimator, and moisturizer of the delicate external auditory [...] Sensorine ural hearing loss of bilateral ears [id number] Active 2018 Sensorine ural hearing loss, bilateral ; Note: Date Diagnosed : 03/28/2019 3:34 PM (H90.3) Not Available [facility] 4 02:33:25 Pain of right temporoma ndibular joint [id number] 885249 Active 2019 Arthralgi a of right temporoma ndibular joint; Note: Date Diagnosed : 0 3:09 PM (M26.621) Not Available [facility] 4 02:33:24 Abrasion of skin of left ear [id number] 096369 Active 2018 Abrasion of left ear, initial encounter ; Note: Date Diagnosed : 03/28/2019 2:58 PM (S00.412A ) Not Available [facility] 4 02:33:25 Bilateral temporoma ndibular joint pain 14869301480 659866 Active 2021 Arthralgi a of bilateral temporoma ndibular joint; Note: Date Diagnosed : 08/26/2021 4:41 PM (M26.623) Not Available [facility] 4 02:33:30 Foreign body in left ear 36046560173 430845 Active 2018 Foreign body in left ear, initial encounter ; Note: Date Diagnosed : 03/28/2019 2:58 PM (T16.2XXA ) Not Available [facility] 4 02:33:35 Abnormal auditory perceptio n 80641198 Active 2023 Leonie wharton [place] - [facility] 4 10:43:01 Problem Notes None recorded. Procedures Surgical History Date Name Laterality Status Provider Name and Address Organization Details Recorded Time 05/28/20 24 Tympanometry (14364) completed Leonie Peña MA - [facility] 05/28/2024 10:42:54 Imaging Results Imaging Date [...] unkno wn, unspe cifie d;; Not Available [facility] 01:04:04 Medications Name Sig Start Date Stop Date Status Note LastModified by Organization Details LastModified Time cyclobenz aprine 10 mg tablet 2018 active Medicati on ID: [id number] D uration Value: 20 Brand Name: tish [...] mg tablet 05/28 completed Medicati on ID: [id number] D uration Value: 30 Brand Name: atorvast [...] mg tablet 05/28 completed Medicati on ID: [id number] B rand Name: ciproflo xacin HCl Send [...] ear drops 05/28 completed Medicati on ID: [id number] B rand Name: ofloxaci n Send Method: [...] mg tablet 2018 active Medicati on ID: [id number] D uration Value: 30 Brand Name: metoclop [...] injection solution 05/28 completed Medicati on ID: [id number] B rand Name: cyanocob alamin (vitamin B-12) Se nd Method: E-Prescr ibed Sub s Allowed: subs OK Medic ationGen ericName : cyanocob alamin (vitamin B-12) Not Available Not Available Not Available esomepraz ole magnesium 40 mg capsule,d elayed release active Not Available Not Available Not Available omeprazol e 20 mg capsule,d elayed release 2018 active Medicati on ID: [id number] D uration Value: 30 Brand Name: omeprazo [...] completed Not Available Not Available Not Available Stanford Saline 0.65 % nasal spray aerosol 05/28 completed Medicati on ID: [id number] B rand Name: [place] S end Method: E-Prescr ibed Sub s Allowed: subs OK Medic ationGen ericName : Stanford Saline Not Available Not Available Not Available [...] pen injector 2018 active Medicati on ID: [id number] D uration Value: 28 Brand Name: Skyler [...] SNOMED-CT Code Diagnosis ICD10 Code Diagnosis Note [id number] MERRILL IRIZARRY MD [facility] [address] [address] 05/28/2024 10:13:26 05/28/2024 11:00:06 Abnormal auditory perception 15289634 H93.299 Tympanomet ry: Right Ear:{{Type A* Type [...] a hermetic seal}} Bilateral temporomandibular joint pain [id number] 8774610 M26.623 Sensorineu ral hearing loss of bilateral ears [id number] H90.3 Health Concerns Section Related Observation LastModified by Organization Detai ls LastModified Time None Recorded Concern Status LastModified by Organization Details LastModified Time None Recorded Advance Directives Directive None Recorded Payers Encounter Date Sequence Insurance Name Policy Number Policy Gamino Covered Member ID Gamino Member ID Guarantor Name 05/28/2024 1 [facility] HEALTH NET PLAN (MEDICAID HMO) JAIDEN Durham [id number] Mellisa Durham Notes Date Note Type Note [...] ear infections. She has hearing aids from [facility] that she recently sent for adjustments. She has not worn them in 2 years. Occasional buzzing sounds bilaterally. MERRILL IRIZARRY MD [address] [place] [address], [id number] - [facility] 05/28/2024 17:20:37 OBGyn Episode No OBEpisode recorded.
--- OUTSIDE RECORDS SUMMARY | 2024-08-21 14:38 | XMS_ITS | Clinical Summary ---
Author Organization [facility] Address [address] [place] [address] Care Team Providers Care Tax Director Name Role Phone Unavailable Primary Care [...] Drug Screen 07/03/2023 Depression Annual Screen 07/03/2023 Lvr-XBECX-40 ( season) 2024 021, 10/07/2020 Imm-Influenza (#1) 2024 04/04/2019, 05/30/2018 Imm-DTaP/Tdap/Td (2 - Td or Tdap) 01/06/2030 020, 07/08/2015 Cervical Ablation/Cold-Knife Conization Discontinued Cervical Cryotherapy Discontinued Colposcopy Discontinued Endometrial Biopsy Discontinued Excision/Leep Discontinued HPV Genotyping Discontinued Vaginal Pap Discontinued Vulvoscopy Discontinued Insurance [facility] [employer] PLAN Member Subscriber Plan / Payer (Ef fective 2020-Present) Name:Mellisa Durham Relation to Subscriber:Self Name:Mellisa Durham Payer ID:[id number] Group ID:[id number] Type:Medicaid Address: [facility] [address] [place] [address]
--- OUTSIDE RECORDS SUMMARY | 2024-08-21 14:38 | XMS_ITS | Clinical Summary ---
Author Organization [facility] Address [address] [place] [address] Care Team Providers Care Experiential Therapist Name Role Phone Unavailable Primary Care Provider [...]
[2024-08-21 14:47] VITALS: BP 138/76; PULSE 80; O2SAT 98; BMI 31.4
[2024-08-21 14:59] LABS: Glucose, Whole Blood 209 mg/dL (60-115)
== END 2024-08-21 15:39 | disposition home or self-care (01) ==
PROVIDERS: PCP Internal Medicine; Visit Provider Nurse Practitioner Adult Health
DX: E11.42 Type 2 diabetes mellitus with diabetic polyneuropathy (principal); Z79.4 Long term (current) use of insulin
CPT/HCPCS: 99215; G2211

== ENCOUNTER → 2024-08-21 14:36 | Outpatient (BNVA) | payer OTHER, SELFPAY | PROVIDERS: PCP Internal Medicine; Visit Provider Nurse Practitioner Adult Health | DX: E11.42 Type 2 diabetes mellitus with diabetic polyneuropathy (principal); Z79.4 Long term (current) use of insulin | CPT/HCPCS: 82947; 99212 ==

== ENCOUNTER 2024-08-26 08:51 | Outpatient (AMB) | payer OTHER, SELFPAY ==
--- NOTE | 2024-08-26 08:56 | A.OFFVIS_ITS ---
Vital Signs 08/26/24 09:00 Height 5 ft 2 in Weight 170 lb 3.15 oz BMI 31.1 BP 112/62 Blood Pressure Location Rt brachial Position Sitting Pulse 74 Pulse Source Pulse Oximeter Pulse Oximetry (%) 97 Oxygen Delivery Method Room Air Intake Visit Reasons: 3 months f/u Intake Note: ESTABLISHED PATIENT for mgmt of GERD, umbilical hernia, constipation. Imaging done. Chief Complaint; C/O chronic RUQ pain unchanged since last visit. Pt also reporting episodes of loose stools and increased urgency for BM w/o evident hemo. Pt denies any additional concerns / sx. Chief Communications Officer Required: Yes Chief Communications Officer Services: Chief Communications Officer Present Chief Communications Officer Name: [facility] Vaughn Lott [id number] Information Interpreted: clinical only Accompanied by: Self / Same As Patient Allergies Penicillins Allergy (Mild, Verified 08/26/24 09:10) RASH/DYSPNEA canagliflozin [From Invokana] Adverse Reaction (Severe, Verified 08/26/24 09:10) uti metformin Adverse Reaction (Intermediate, Verified 08/26/24 09:10) stomach upset mounjaro Adverse Reaction (Intermediate, Uncoded 08/26/24 09:10) Abdominal Pain trulicity Adverse Reaction (Intermediate, Uncoded 08/26/24 09:10) Abdominal Pain HPI HPI 3 months f/u: Details: LAST VISIT: GERD (gastroesophageal reflux disease) Postprandial abdominal bloating IBS (irritable bowel syndrome) Chronic idiopathic constipation Plan Patient will be sent for upper GI with barium swallow to check for hernia, esophageal dysmotility, strictures. Will change her treatment to Nexium. Patient does reports occasional shortness of breath and chest pain as well as bilateral lower extremity edema towards the end of the day, referral to Cardiology sent. Patient also reports umbilical hernia reoccurrence. Patient had umbilical hernia repair 6 years ago and [facility]. Referral to General surgery for possible umbilical hernia repair. Patient will continue to take Linzess. Increase fluid intake and activity to promote better bowel motility. Patient will follow-up in 3 months, sooner on as needed basis. She is agreeable to this plan and verbalizes understanding of instructions. She was given the opportunity to ask questions and all questions answered. ? Thank you for allowing me to participate in her care Orders Orders FL upper GI w Ba Swallow 05/27/24 K21.9 Referrals Cardiology Referral Z01.810, R07.9, E11.65 General Surgery Referral K42.9 Medications New esomeprazole magnesium (Nexium) 40 mg PO DAILY 30 caps 5RF K21.9 Refilled famotidine (Pepcid) 20 mg PO BEDTIME 90 tabs 3RF K21.9 Discontinued pantoprazole take one tablet half an hour before breakfast Discontinued Reason: Doctor's Order 40 mg PO DAILY 90 tabs 2RF K21.9 TODAY'S VISIT Patient is here today for follow-up. Patient reports that she has been experiencing abdominal pain and bloating. Patient also reports burning. Feels very gassy. The patient was taking Linzess and stopped as she was having multiple loose stools. Currently has no acid reflux, feels like it is more under control. Patient is taking Nexium in the morning and famotidine at bedtime. Patient's blood sugars are not very well controlled. She was taking 1 general, however that was stopped. Patient admits to not following a novel diet. Reports that she has diarrhea, however admits to having loose stools. Patient is due to go for colonoscopy, however she is going for umbilical hernia repair in August and would like to weigh. Patient denies melena, hematochezia, unintentional weight loss or ribbon like stools. Patient should go for upper endoscopy as well when she goes for a colonoscopy. Patient denies any nausea or vomiting. Denies dyspepsia, dysphagia or odynophagia. 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 Pernicious anemia Hearing loss Insomnia Depression with anxiety Moderate asthma Essential hypertension Polyarthralgia GERD (gastroesophageal reflux disease) Diabetes Hearing loss Surgical History History of cholecystectomy History of umbilical hernia repair History of foot surgery History of carpal tunnel release History of surgery on arm History of endometrial ablation History of tubal ligation Family History Mother Breast cancer Paternal Grandmother Breast cancer Brother Colon cancer Family/Other FH: mental illness Mental health disorder Father CAD (coronary artery disease) Social History Household Members: Children Housing: Apartment Are you a primary post anesthesia care unit nurse to a significant other at home: No Do you presently have visiting nurse or other home services: Yes ([employer]) Alcohol intake: never Patient Tobacco Use Status: Never used Tobacco e-Cigarette/Vaping Use: Never Used Second Hand Smoke Exposure: No service: No Current occupational status: disabled Current occupation: Right hand dominate Cognitive needs: No Hearing needs: No Vision needs: Yes Female Reproductive History Menstrual Age of Menarche: 11 Review of Systems Const Denies weight gain and Denies weight loss ENT Reports no additional complaints, Denies dysphagia and Denies odynophagia Card Reports no additional complaints Resp Reports no additional complaints GI Reports abdominal pain (LLQ, upper and mid abdomen burning like pain), Denies belching, Denies melena, Reports bloating, Denies change in bowel habits, Reports constipation, Denies dysphagia, Denies excessive flatus, Denies dyspepsia, Denies heartburn, Denies diarrhea, Reports loose stools, Denies nausea, Denies odynophagia and Denies vomiting Reports no additional complaints Musc Reports no additional complaints Neuro Reports no additional complaints Psych Reports no additional complaints Endo Reports no additional complaints Physical Exam Vital Signs: Last Vital Signs Pulse 74 08/26/24 09:00 BP 112/62 08/26/24 09:00 Pulse Ox 97 08/26/24 09:00 Oxygen Delivery Method Room Air 08/26/24 09:00 BMI result Body Mass Index 31.1 Const General: healthy appearing and no acute distress Nutritional Appearance: obese Orientation/consciousness: patient oriented x3 Resp Effort & Inspection: normal respiratory effort, able to speak in complete sentences, no tracheal deviation and symmetric chest movement Auscultation: clear to auscultation bilaterally Cardio Rate: regular rate GI Other: Old surgical scars Inspection: No distended, Yes obesity and Yes visible herniation Palpation (GI): Soft to palpation, not firm, nontender and No hepatosplenomegaly present Auscultation: normal bowel sounds General: Yes no CVA tenderness Back/Spine/Pelvis Back: no CVA tenderness Skin General skin exam: elasticity normal, turgor normal and dry skin Neuro General: patient oriented x3 Psych Appearance: grossly normal Mental Status: mental status grossly normal Quality Reporting (2019) Adult ([facility] 138/08/24/68) Smoking risk assessment performed?: Yes Patient Tobacco Use Status: Never used Tobacco Results Reviewed Results Reviewed: UPPER GI SERIES IMPRESSION: 1. Mild cricopharyngeal achalasia. 2. Felinization of the mid esophageal mucosa. This is a benign finding associated with chronic gastroesophageal reflux. While gastroesophageal reflux was present during this examination, it was previously seen on the 2020 examination. 3. Severe esophageal dysmotility. 4. Multiple small well-circumscribed filling defects in the body and antrum of the stomach. These probably represent small hyperplastic polyps, however, small mucosal ulcerations cannot be excluded. Recommend correlation with EGD. Assessment & Plan Assessment & Plan (1) GERD (gastroesophageal reflux disease): Code(s): K21.9 - Gastro-esophageal reflux disease without esophagitis Category: Medical Qualifiers: Esophagitis presence: without esophagitis Qualified Code(s): K21.9 - Gastro-esophageal reflux disease without esophagitis (2) Postprandial abdominal bloating: Code(s): R14.0 - Abdominal distension (gaseous) (3) IBS (irritable bowel syndrome): Code(s): K58.9 - Irritable bowel syndrome, unspecified Qualifiers: Irritable bowel syndrome type: with both diarrhea and constipation Qualified Code(s): K58.2 - Mixed irritable bowel syndrome (4) Chronic idiopathic constipation: Code(s): K59.04 - Chronic idiopathic constipation Plan Patient will stop Linzess. Patient was instructed to take fiber and takes senna 2 tablets in the evening. Increase fluid intake and activity to promote better bowel motility. Continue Nexium and famotidine. Avoid dietary triggers like dense plaquing. Sitting upright for minimum 3 hours after meals discussed with patient. Due for colonoscopy and should go for upper endoscopy to re-evaluate. Long discussion with patient about dietary changes. Low FODMAP diet discussed with patient. Distal foot recommended as well as list of foods to avoid given to patient. Patient will follow-up in 3 months, sooner on a as needed basis. She is agreeable to this plan and verbalized understanding of instructions. She was given the opportunity ask questions and all questions answered. Thank you for allowing me to participate in her care Medications: New sennosides (Natural Senna Laxative) 17.2 mg (2 x 8.6 mg) PO BEDTIME 60 tabs 3RF constipation K59.00 - Constipation, unspecified Discontinued linaclotide (Linzess) Discontinued Reason: Doctor's Order 290 mcg PO QAM 30 caps 4RF K59.00 - Constipation, unspecified Coding Level of Care Code Est Pt Level 4 (46790) Complex EM visit Add On G2211 Diagnoses Gastroesophageal reflux disease without esophagitis K21.9 Esophagitis presence: without esophagitis Postprandial abdominal bloating R14.0 Irritable bowel syndrome with both constipation and diarrhea K58.2 Irritable bowel syndrome type: with both diarrhea and constipation Chronic idiopathic constipation K59.04 Time Spent (min) 35 Comment 25 minutes spent with the patient and additional 10 minutes spent reviewing her records
[2024-08-26 09:00] VITALS: BP 112/62; PULSE 74; O2SAT 97; BMI 31.1
--- OUTSIDE RECORDS SUMMARY | 2024-08-26 09:22 | XMS_ITS | Data Portability ---
Author Organization [place] - [facility], Allergy Address [address] [address] Care Team Providers Care Antenna Machine Operator Name Role Phone LUIS M GILLIAM Primary Care Provider Assessment Encounter Date Assessment Date Assessment LastModified by Organization Details LastModified Time 05/28/2024 05/28/2024 58 year old female with SNHL and TMJ presents for evaluation of ear blockage bilaterally. Otologic exam demonstrates TMs are intact with well-aerated middle ear spaces. EACs without obstruction. Tympanometry is type A bilaterally. Her hearing aids from [facility] were sent for adjustment. Recommend she trial the adjusted hearing aids. She will return for audiometric testing if abnormal auditory perception persists. Today we spent some time talking about the fact that cerumen is a natural antibiotic, antifungal, materials inspector, and moisturizer of the delicate external auditory [...] Sensorine ural hearing loss of bilateral ears [id number] Active 2018 Sensorine ural hearing loss, bilateral ; Note: Date Diagnosed : 03/28/2019 3:34 PM (H90.3) Not Available [facility] 4 02:33:25 Pain of right temporoma ndibular joint 55474290160 833700 Active 2019 Arthralgi a of right temporoma ndibular joint; Note: Date Diagnosed : 0 3:09 PM (M26.621) Not Available [facility] 4 02:33:24 Abrasion of skin of left ear 13465010807 859339 Active 2018 Abrasion of left ear, initial encounter ; Note: Date Diagnosed : 03/28/2019 2:58 PM (S00.412A ) Not Available [facility] 4 02:33:25 Bilateral temporoma ndibular joint pain 85286301610 408132 Active 2021 Arthralgi a of bilateral temporoma ndibular joint; Note: Date Diagnosed : 08/26/2021 4:41 PM (M26.623) Not Available [facility] 4 02:33:30 Foreign body in left ear 20484074456 265536 Active 2018 Foreign body in left ear, initial encounter ; Note: Date Diagnosed : 03/28/2019 2:58 PM (T16.2XXA ) Not Available [facility] 4 02:33:35 Abnormal auditory perceptio n 49967877 Active 2023 Leonie wharton MA - [facility] 4 10:43:01 Problem Notes None recorded. Procedures Surgical History Date Name Laterality Status Provider Name and Address Organization Details Recorded Time 05/28/20 24 Tympanometry (25432) completed Leonie Peña MA - [facility] 05/28/2024 10:42:54 Imaging Results Imaging Date Name [...] unkno wn, unspe cifie d;; Not Available [facility] 01:04:04 Medications Name Sig Start Date Stop Date Status Note LastModified by Organization Details LastModified Time cyclobenz aprine 10 mg tablet 2018 active Medicati on ID: [id number] D uration Value: 20 Brand Name: tish [...] mg tablet 05/28 completed Medicati on ID: [id number] D uration Value: 30 Brand Name: atorvast [...] mg tablet 05/28 completed Medicati on ID: [id number] B rand Name: ciproflo xacin HCl Send [...] ear drops 05/28 completed Medicati on ID: [id number] B rand Name: ofloxaci n Send Method: [...] mg tablet 2018 active Medicati on ID: [id number] D uration Value: 30 Brand Name: metoclop [...] injection solution 05/28 completed Medicati on ID: [id number] B rand Name: cyanocob alamin (vitamin B-12) Se nd Method: E-Prescr ibed Sub s Allowed: subs OK Medic ationGen ericName : cyanocob alamin (vitamin B-12) Not Available Not Available Not Available esomepraz ole magnesium 40 mg capsule,d elayed release active Not Available Not Available Not Available omeprazol e 20 mg capsule,d elayed release 2018 active Medicati on ID: [id number] D uration Value: 30 Brand Name: omeprazo [...] completed Not Available Not Available Not Available [place] 0.65 % nasal spray aerosol 05/28 completed Medicati on ID: [id number] B rand Name: [place] S end Method: E-Prescr ibed Sub s Allowed: subs OK Medic ationGen ericName : [place] Not Available Not Available Not Available [...] pen injector 2018 active Medicati on ID: [id number] D uration Value: 28 Brand Name: Skyler [...] SNOMED-CT Code Diagnosis ICD10 Code Diagnosis Note [id number] MERRILL IRIZARRY MD [facility] [address] [address] 05/28/2024 10:13:26 05/28/2024 11:00:06 Abnormal auditory perception [id number] H93.299 Tympanomet ry: Right Ear:{{Type A* Type [...] a hermetic seal}} Bilateral temporomandibular joint pain [id number] 8027868 M26.623 Sensorineu ral hearing loss of bilateral ears [id number] H90.3 Health Concerns Section Related Observation LastModified by Organization Detai ls LastModified Time None Recorded Concern Status LastModified by Organization Details LastModified Time None Recorded Advance Directives Directive None Recorded Payers Encounter Date Sequence Insurance Name Policy Number Policy Gamino Covered Member ID Gamino Member ID Guarantor Name 05/28/2024 1 [facility] - HEALTH NET PLAN (MEDICAID HMO) JAIDEN Durham [id number] Mellisa Durham Notes Date Note Type Note [...] ear infections. She has hearing aids from [facility] that she recently sent for adjustments. She has not worn them in 2 years. Occasional buzzing sounds bilaterally. MERRILL IRIZARRY MD [address] [place] [address], [phone] - [facility] 05/28/2024 17:20:37 OBGyn Episode No OBEpisode recorded.
--- OUTSIDE RECORDS SUMMARY | 2024-08-26 09:22 | XMS_ITS | Clinical Summary ---
Author Organization [facility] Address [address] [place] [address] Care Team Providers Care Fruit Stuffer Name Role Phone Unavailable Primary Care Provider [...]
--- OUTSIDE RECORDS SUMMARY | 2024-08-26 09:22 | XMS_ITS | Clinical Summary ---
Author Organization [facility] Address [address] [place] [address] Care Team Providers Care Sole Dyer Name Role Phone Unavailable Primary Care Provider [...] Drug Screen 07/03/2023 Depression Annual Screen 07/03/2023 [id number] ( season) 2024 021, 10/07/2020 Imm-Influenza (#1) 2024 04/04/2019, 05/30/2018 Imm-DTaP/Tdap/Td (2 - Td or Tdap) 01/06/2030 020, 07/08/2015 Cervical Ablation/Cold-Knife Conization Discontinued Cervical Cryotherapy Discontinued Colposcopy Discontinued Endometrial Biopsy Discontinued Excision/Leep Discontinued HPV Genotyping Discontinued Vaginal Pap Discontinued Vulvoscopy Discontinued Insurance [facility] [employer] PL[employer] Member Subscriber Plan / Payer (Ef fective 2020-Present) Name:Mellisa Durham Relation to Subscriber:Self Name:Mellisa Durham Payer ID:[id number] Group ID:[id number] Type:Medicaid Address: [facility] [id number] [place] [address]
== END 2024-08-26 09:42 | disposition home or self-care (01) ==
PROVIDERS: PCP Internal Medicine; Visit Provider Nurse Practitioner Family
DX: K21.9 Gastro-esophageal reflux disease without esophagitis (principal); R14.0 Abdominal distension (gaseous); K58.2 Mixed irritable bowel syndrome; K59.04 Chronic idiopathic constipation
CPT/HCPCS: 99214; G2211

== ENCOUNTER → 2024-08-26 08:51 | Outpatient (BNVA) | payer OTHER, SELFPAY | PROVIDERS: PCP Internal Medicine; Visit Provider Nurse Practitioner Family | DX: K21.9 Gastro-esophageal reflux disease without esophagitis (principal); K58.2 Mixed irritable bowel syndrome; K59.04 Chronic idiopathic constipation; R14.0 Abdominal distension (gaseous) | CPT/HCPCS: 99212 ==

== ENCOUNTER 2024-09-02 12:50 | Outpatient (AMB) | payer OTHER, SELFPAY ==
[2024-09-02 13:11] VITALS: BP 126/60; PULSE 73; O2SAT 97; BMI 31.0
--- NOTE | 2024-09-02 13:11 | MHC.OFFVIS ---
Vital Signs 09/02/24 13:11 Height 5 ft 2 in Weight 169 lb 12.095 oz BMI 31.0 BP 126/60 Pulse 73 Pulse Source Pulse Oximeter Pulse Oximetry (%) 97 Oxygen Delivery Method Room Air Intake Visit Reasons: asthma Marble Machine Operator Required: Yes Marble Machine Operator Name: Kobe #[id number] Historic [employer]othing And Costume Maker: Historic [employer]othing And Costume Maker offered & declined Accompanied by: Self / Same As Patient Allergies Penicillins Allergy (Mild, Verified 09/02/24 13:15) RASH/DYSPNEA canagliflozin [From Invokana] Adverse Reaction (Severe, Verified 09/02/24 13:15) uti metformin Adverse Reaction (Intermediate, Verified 09/02/24 13:15) stomach upset mounjaro Adverse Reaction (Intermediate, Uncoded 09/02/24 13:15) Abdominal Pain trulicity Adverse Reaction (Intermediate, Uncoded 09/02/24 13:15) Abdominal Pain Medication List - Last Reconciled 09/02/24 by Merari Yost LPN acetone (urine) test (Ketone Urine Test strips) As directed albuterol sulfate 2.5 mg (3 mL) inhalation Q4-6H PRN albuterol sulfate 90 mcg/actuation 2 puffs inhalation Q4-6H PRN atorvastatin 40 mg PO DAILY blood sugar diagnostic (FreeStyle Lite Strips) As directed four times a day blood-glucose meter (FreeStyle Lite Meter kit) use as directed to test blood sugar 4x per day blood-glucose sensor ([employer] ConsultantsStyle Sandra 3 Plus Sensor device) continuous sensor reapply every 15 days cholecalciferol (vitamin D3) (Vitamin D3) 25 mcg PO DAILY 90 days cyanocobalamin (vitamin B-12) 500 mcg sublingual DAILY 90 days esomeprazole magnesium (Nexium) 40 mg PO DAILY famotidine (Pepcid) 20 mg PO BEDTIME fluticasone propion-salmeterol 230-21 mcg/actuation (Advair HFA) 2 puffs inhalation BID fluticasone propionate 50 mcg/actuation (Flonase Allergy Relief) 1 spray intranasal DAILY PRN heating pads As directed hydrochlorothiazide 12.5 mg PO QAM incontinence pad, liner, disp Use 1 pad twice a day insulin aspart U-100 8-10 units tid before meals subcutaneously use as directed; 90 days ketorolac 10 mg PO TID PRN lancets (FreeStyle Lancets) every 4 hours prn dispense as 32 gauge if avil Lantus Solostar U-100 Insulin (insulin glargine) 40 units (0.4 mL) subcut DAILY 90 days NS lidocaine 5% 1 patch topical DAILY PRN lidocaine HCl 2% 1 appl mucous membrane BID PRN 30 days lorazepam 0.5 mg PO BID-TID PRN montelukast 10 mg PO DAILY nebulizer accessories NEBULIZER FACE MASK ADULT, USE DIRECTED nebulizers (userfoxe II Nebulizer) As directed pen needle, diabetic (BD Sondra 2nd Gen Pen Needle) 4 times daily pioglitazone 45 mg PO DAILY 90 days sennosides (Natural Senna Laxative) 17.2 mg (2 x 8.6 mg) PO BEDTIME sertraline 50 mg PO DAILY PRN sertraline 100 mg PO DAILY PRN Shower Chair As directed simethicone 125 mg PO BID-QID PRN solifenacin (Vesicare) 5 mg PO DAILY PRN [toilet seat elevator As directed] zolpidem 5 mg PO BEDTIME HPI HPI asthma: Details: Mellisa is a pleasant 58 year old female, never smoker, with underlying asthma, GERD, DMII, and HTN. At baseline, she has been well controlled on Advair 230 mcg and albuterol MDI. She currently denies any respiratory symptoms. She denies any visits to urgent care or hospitalizations related to respiratory distress since the last visit. Today she presents to review PFT results. 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 Pernicious anemia Insomnia Depression with anxiety Moderate asthma Essential hypertension Polyarthralgia GERD (gastroesophageal reflux disease) Type 2 diabetes mellitus with other diabetic neurological complication Diabetes Hearing loss Surgical History (Updated 08/28/24 @ 10:14 by Lila Chu RN) Hx of bilateral cataract extraction History of esophagogastroduodenoscopy (EGD) H/O colonoscopy History of cholecystectomy History of umbilical hernia repair History of foot surgery History of carpal tunnel release History of surgery on arm History of endometrial ablation History of tubal ligation Family History Mother Breast cancer Paternal Grandmother Breast cancer Brother Colon cancer Family/Other FH: mental illness Mental health disorder Father CAD (coronary artery disease) Social History Household Members: Children Housing: Apartment Are you a primary personal care attendant to a significant other at home: No Do you presently have visiting nurse or other home services: Yes (SCRAPPER) Alcohol intake: never Patient Tobacco Use Status: Never used Tobacco e-Cigarette/Vaping Use: Never Used Second Hand Smoke Exposure: No service: No Current occupational status: disabled Current occupation: Right hand dominate Cognitive needs: No Hearing needs: No Vision needs: Yes Female Reproductive History Menstrual Age of Menarche: 11 Review of Systems Const Denies chills, Denies excessive sweating, Denies fever(s), Denies headache(s) and Denies night sweats Eyes Denies dry eyes, Denies irritation and Denies itchy eyes ENT Reports Normal hearing present, Denies headache(s), Denies nasal congestion, Denies nasal discharge, Denies post nasal drip and Denies sore throat Card Denies chest pain, Denies chest pain at rest, Denies chest pain with activity, Denies claudication, Denies leg edema, Denies dyspnea, Denies dyspnea on exertion, Denies orthopnea and Denies paroxysmal nocturnal dyspnea Resp Denies chest congestion, Denies cough, Denies excessive phlegm production, Denies pain on inspiration, Denies pain with cough, Denies dyspnea, Denies dyspnea on exertion, Denies stridor and Denies wheezing Musc Denies myalgias Neuro Reports Normal hearing present and Denies headache(s) Endo Denies excessive sweating Kranthi/Lymph Denies lymphadenopathy Aller/Immun Denies itchy eyes, Denies seasonal rhinorrhea and Denies wheezing Physical Exam Vital Signs: Last Vital Signs Pulse 73 09/02/24 13:11 BP 126/60 09/02/24 13:11 Pulse Ox 97 09/02/24 13:11 Oxygen Delivery Method Room Air 09/02/24 13:11 BMI result Body Mass Index 31.0 Const General: cooperative, healthy appearing, comfortable, no acute distress, well developed and alert Orientation/consciousness: patient oriented x3 Limitations: no limitations HEENT Head: Yes normal to inspection, Yes normocephalic and Yes atraumatic Ears: hearing grossly normal bilaterally and external ears normal Eyes General: appearance normal, both eyes and all related structures Eyelids: Yes eyelids normal Sclerae: sclerae normal EOM: EOMs intact bilaterally Neck Neck: Yes normal visual inspection and Yes no lymphadenopathy Lymphatic: no lymphadenopathy noted Chest Chest palpation & inspection: normal inspection of the chest Resp Effort & Inspection: normal respiratory effort, able to speak in complete sentences, no audible wheezes, no cough, no stridor, not tachypneic, no tripod positioning and no use of accessory muscles Auscultation: clear to auscultation bilaterally Cardio Jugular venous distension: no JVD Rate: regular rate Rhythm: regular rhythm Skin Other: warm, dry General skin exam: no rashes or lesions noted Neuro General: patient oriented x3 Cranial nerves: Yes Normal hearing present Cognition (Neuro): normal cognition Gait exam (Neuro): Normal gait present Extrem General: Yes normal to inspection, Yes capillary refill normal, Yes no clubbing, cyanosis or edema and Yes no pedal edema Psych Appearance: grossly normal and well kempt Speech and movement: Normal speech and movement present and Clear speech present Affect: normal affect Attitude: cooperative Thought process: Normal thought process present Thought content: Normal thought content present Insight: Good insight present (Psych) Judgement: Good judgement present (Psych) Quality Reporting (2019) Adult ([facility] 13808/24/68) Smoking risk assessment performed?: Yes Patient Tobacco Use Status: Never used Tobacco Assessment & Plan Assessment & Plan (1) Asthma: Code(s): J45.909 - Unspecified asthma, uncomplicated Category: Medical Qualifiers: Asthma complication type: with acute exacerbation Asthma persistence: unspecified Asthma severity: moderate Qualified Code(s): J45.901 - Unspecified asthma with (acute) exacerbation (2) Environmental and seasonal allergies: Code(s): J30.89 - Other allergic rhinitis Category: Medical (3) Encounter for preoperative pulmonary examination: Code(s): Z01.811 - Encounter for preprocedural respiratory examination Category: Medical Plan Mellisa presents for preoperative pulmonary evaluation for proposed hernia repair. She denies respiratory symptoms at this time, respiratory exam unremarkable and VSS WNL.?Reviewed PFT which revealed no obstructive or restrictive ventilatory defect. Bronchodilator response is present in small to medium airways only. Decreased expiratory reserve volume suggests extrathoracic restriction likely secondary to abdominal obesity. DLCO WNL. She has been doing quite well on Advair and is medically optimized from a pulmonary prospective. She has not required steroids or antibiotics in the last three months. At this time, she is considered low risk for perioperative pulmonary complications. Consider bronchodilators during the perioperative period. All questions were answered and patient is in agreement of plan. Will follow up in 6 months or sooner if needed. Coding Level of Care Code Est Pt Level 4 (24183) Diagnoses Moderate asthma with acute exacerbation, unspecified whether persistent J45.901 Asthma complication type: with acute exacerbation Asthma persistence: unspecified Asthma severity: moderate Environmental and seasonal allergies J30.89 Encounter for preoperative pulmonary examination Z01.811
--- OUTSIDE RECORDS SUMMARY | 2024-09-02 14:59 | XMS_ITS | Clinical Summary ---
Author Organization [facility] Address [address] [place] [address] Care Team Providers Care Ios Software Engineer Name Role Phone Unavailable Primary Care Provider [...] Drug Screen 07/03/2023 Depression Annual Screen 07/03/2023 [id number] ( season) 2024 021, 10/07/2020 Imm-Influenza (#1) 2024 04/04/2019, 05/30/2018 Imm-DTaP/Tdap/Td (2 - Td or Tdap) 01/06/2030 020, 07/08/2015 Cervical Ablation/Cold-Knife Conization Discontinued Cervical Cryotherapy Discontinued Colposcopy Discontinued Endometrial Biopsy Discontinued Excision/Leep Discontinued HPV Genotyping Discontinued Vaginal Pap Discontinued Vulvoscopy Discontinued Insurance [facility] [employer] PL[employer] Member Subscriber Plan / Payer (Ef fective 2020-Present) Name:Mellisa Durham Relation to Subscriber:Self Name:Mellisa Durham Payer ID:[id number] Group ID:[id number] Type:Medicaid Address: [facility] [address] [place] [address]
--- OUTSIDE RECORDS SUMMARY | 2024-09-02 15:00 | XMS_ITS | Data Portability ---
Author Organization [place] - [facility], Allergy Address [address] [address] Care Team Providers Care Mechanical Expert Name Role Phone LUIS M GILLIAM Primary Care Provider [phone] Assessment Encounter Date Assessment Date Assessment LastModified by Organization Details LastModified Time 05/28/2024 05/28/2024 58 year old female with SNHL and TMJ presents for evaluation of ear blockage bilaterally. Otologic exam demonstrates TMs are intact with well-aerated middle ear spaces. EACs without obstruction. Tympanometry is type A bilaterally. Her hearing aids from [facility] were sent for adjustment. Recommend she trial the adjusted hearing aids. She will return for audiometric testing if abnormal auditory perception persists. Today we spent some time talking about the fact that cerumen is a natural antibiotic, antifungal, marketing traffic coordinator, and moisturizer of the delicate external auditory [...] Sensorine ural hearing loss of bilateral ears [id number] Active 2018 Sensorine ural hearing loss, bilateral ; Note: Date Diagnosed : 03/28/2019 3:34 PM (H90.3) Not Available [facility] 4 02:33:25 Pain of right temporoma ndibular joint [id number] 732857 Active 2019 Arthralgi a of right temporoma ndibular joint; Note: Date Diagnosed : 0 3:09 PM (M26.621) Not Available [facility] 4 02:33:24 Abrasion of skin of left ear [id number] 540295 Active 2018 Abrasion of left ear, initial encounter ; Note: Date Diagnosed : 03/28/2019 2:58 PM (S00.412A ) Not Available [facility] 4 02:33:25 Bilateral temporoma ndibular joint pain 88710342333 875977 Active 2021 Arthralgi a of bilateral temporoma ndibular joint; Note: Date Diagnosed : 08/26/2021 4:41 PM (M26.623) Not Available [facility] 4 02:33:30 Foreign body in left ear 50446207203 555036 Active 2018 Foreign body in left ear, initial encounter ; Note: Date Diagnosed : 03/28/2019 2:58 PM (T16.2XXA ) Not Available [facility] 4 02:33:35 Abnormal auditory perceptio n 75775809 Active 2023 Leonie wharton [place] - [facility] 4 10:43:01 Problem Notes None recorded. Procedures Surgical History Date Name Laterality Status Provider Name and Address Organization Details Recorded Time 05/28/20 24 Tympanometry (79514) completed Leonie Peña MA - [facility] 05/28/2024 10:42:54 Imaging Results Imaging Date [...] unkno wn, unspe cifie d;; Not Available [facility] 01:04:04 Medications Name Sig Start Date Stop Date Status Note LastModified by Organization Details LastModified Time cyclobenz aprine 10 mg tablet 2018 active Medicati on ID: [id number] D uration Value: 20 Brand Name: tish [...] mg tablet 05/28 completed Medicati on ID: [id number] D uration Value: 30 Brand Name: atorvast [...] mg tablet 05/28 completed Medicati on ID: [id number] B rand Name: ciproflo xacin HCl Send [...] ear drops 05/28 completed Medicati on ID: [id number] B rand Name: ofloxaci n Send Method: [...] mg tablet 2018 active Medicati on ID: [id number] D uration Value: 30 Brand Name: metoclop [...] injection solution 05/28 completed Medicati on ID: [id number] B rand Name: cyanocob alamin (vitamin B-12) Se nd Method: E-Prescr ibed Sub s Allowed: subs OK Medic ationGen ericName : cyanocob alamin (vitamin B-12) Not Available Not Available Not Available esomepraz ole magnesium 40 mg capsule,d elayed release active Not Available Not Available Not Available omeprazol e 20 mg capsule,d elayed release 2018 active Medicati on ID: [id number] D uration Value: 30 Brand Name: omeprazo [...] completed Not Available Not Available Not Available [place] 0.65 % nasal spray aerosol 05/28 completed Medicati on ID: [id number] B rand Name: [place] Sal[place] S end Method: E-Prescr ibed Sub s Allowed: subs OK Medic ationGen ericName : [place] Not Available Not Available Not Available [...] pen injector 2018 active Medicati on ID: [id number] D uration Value: 28 Brand Name: Skyler [...] SNOMED-CT Code Diagnosis ICD10 Code Diagnosis Note [id number] MERRILL IRIZARRY MD [facility] of [address] [address] 05/28/2024 10:13:26 05/28/2024 11:00:06 Abnormal auditory perception [id number] H93.299 Tympanomet ry: Right Ear:{{Type A* Type [...] a hermetic seal}} Bilateral temporomandibular joint pain [id number] M26.623 Sensorineu ral hearing loss of bilateral ears 552764455 H90.3 Health Concerns Section Related Observation LastModified by Organization Detai ls LastModified Time None Recorded Concern Status LastModified by Organization Details LastModified Time None Recorded Advance Directives Directive None Recorded Payers Encounter Date Sequence Insurance Name Policy Number Policy Gamino Covered Member ID Gamino Member ID Guarantor Name 05/28/2024 1 [facility] (MEDICAID HMO) JAIDEN Durham [id number] Mellisa Durham Notes Date Note Type Note [...] ear infections. She has hearing aids from [facility] that she recently sent for adjustments. She has not worn them in 2 years. Occasional buzzing sounds bilaterally. MERRILL IRIZARRY MD [address] [place] [address], [id number] - [facility] 05/28/2024 17:20:37 OBGyn Episode No OBEpisode recorded.
--- OUTSIDE RECORDS SUMMARY | 2024-09-02 15:00 | XMS_ITS | Clinical Summary ---
[facility] [address] [place] [address] Care Team Providers Care Toddler Guide Name Role Phone Unavailable Primary Care Provider [...]
== END 2024-09-02 13:31 | disposition home or self-care (01) ==
PROVIDERS: PCP Internal Medicine; Visit Provider Nurse Practitioner Family
DX: J45.901 Unspecified asthma with (acute) exacerbation (principal); J30.89 Other allergic rhinitis; Z01.811 Encounter for preprocedural respiratory examination
CPT/HCPCS: 99214

== ENCOUNTER → 2024-09-02 12:50 | Outpatient (BNVA) | payer OTHER, SELFPAY | PROVIDERS: PCP Internal Medicine; Visit Provider Nurse Practitioner Family | DX: Z01.811 Encounter for preprocedural respiratory examination (principal); J45.901 Unspecified asthma with (acute) exacerbation; J30.89 Other allergic rhinitis | CPT/HCPCS: 99212 ==

== ENCOUNTER 2024-09-10 09:58 | Outpatient (REF) | payer OTHER, SELFPAY ==
[2024-09-10 12:42] LABS: Blood Urea Nitrogen 20 mg/dL (9-16); Estimated Glomerular Filt Rate > 60
--- OUTSIDE RECORDS SUMMARY | 2024-09-10 14:02 | XMS_ITS | Clinical Summary ---
Author Organization [facility] Address [address] [place] [address] Care Team Providers Care Still Cleaner Tube Name Role Phone Unavailable Primary Care Provider [...] Drug Screen 07/03/2023 Depression Annual Screen 07/03/2023 [id number] ( season) 2024 021, 10/07/2020 Imm-Influenza (#1) 2024 04/04/2019, 05/30/2018 Imm-DTaP/Tdap/Td (2 - Td or Tdap) 01/06/2030 020, 07/08/2015 Cervical Ablation/Cold-Knife Conization Discontinued Cervical Cryotherapy Discontinued Colposcopy Discontinued Endometrial Biopsy Discontinued Excision/Leep Discontinued HPV Genotyping Discontinued Vaginal Pap Discontinued Vulvoscopy Discontinued Insurance [facility] [employer] PLAN Member Subscriber Plan / Payer (Ef fective 2020-Present) Name:Mellisa Durham Relation to Subscriber:Self Name:Mellisa Durham Payer ID:[id number] Group ID:[id number] Type:Medicaid Address: [facility] [address] [place] [address]
--- OUTSIDE RECORDS SUMMARY | 2024-09-10 14:02 | XMS_ITS | Clinical Summary ---
[facility] Address [address] [place] [address] Care Team Providers Care Um Rn Name Role Phone Unavailable Primary Care Provider [...]
== END 2024-09-10 09:59 | disposition home or self-care (01) ==
LOC: HO.LAB 09:58
PROVIDERS: Absent Provider Internal Medicine Hypertension Specialist; PCP Internal Medicine; Visit Provider Nurse Practitioner Family
DX: N13.30 Unspecified hydronephrosis (principal)
CPT/HCPCS: 36415; 81003; 82565; 84520; 99212

== ENCOUNTER 2024-09-10 09:58 | Outpatient (AMB) | payer OTHER, SELFPAY ==
--- NOTE | 2024-09-10 09:58 | MHC.OFFVIS ---
Intake Visit Reasons: Hematuria, unspecified Intake Note: Patient presents today for follow up visit on: Incontinence, frequency, and uti Urology Medications: Vesicare Allergies to Antibiotic: PCN Blood Thinner: none PVR:0ml Automotive Parts Clerk Required: Yes Automotive Parts Clerk Services: Automotive Parts Clerk Present Automotive Parts Clerk Name: [id number] Accompanied by: Self / Same As Patient Allergies Penicillins Allergy (Mild, Verified 09/10/24 10:41) RASH/DYSPNEA canagliflozin [From Invokana] Adverse Reaction (Severe, Verified 09/10/24 10:41) uti metformin Adverse Reaction (Intermediate, Verified 09/10/24 10:41) stomach upset mounjaro Adverse Reaction (Intermediate, Uncoded 09/10/24 10:41) Abdominal Pain trulicity Adverse Reaction (Intermediate, Uncoded 09/10/24 10:41) Abdominal Pain Medication List - Last Reconciled 09/10/24 by SHAINA Messina acetone (urine) test (Ketone Urine Test strips) As directed albuterol sulfate 2.5 mg (3 mL) inhalation Q4-6H PRN albuterol sulfate 90 mcg/actuation 2 puffs inhalation Q4-6H PRN atorvastatin 40 mg PO DAILY blood sugar diagnostic (FreeStyle Lite Strips) As directed four times a day blood-glucose meter (FreeStyle Lite Meter kit) use as directed to test blood sugar 4x per day blood-glucose sensor (FreeStyle Sandra 3 Plus Sensor device) continuous sensor reapply every 15 days cholecalciferol (vitamin D3) (Vitamin D3) 25 mcg PO DAILY 90 days cyanocobalamin (vitamin B-12) 500 mcg sublingual DAILY 90 days esomeprazole magnesium (Nexium) 40 mg PO DAILY famotidine (Pepcid) 20 mg PO BEDTIME fluticasone propion-salmeterol 230-21 mcg/actuation (Advair HFA) 2 puffs inhalation BID fluticasone propionate 50 mcg/actuation (Flonase Allergy Relief) 1 spray intranasal DAILY PRN heating pads As directed hydrochlorothiazide 12.5 mg PO QAM incontinence pad, liner, disp Use 1 pad twice a day insulin aspart U-100 8-10 units tid before meals subcutaneously use as directed; 90 days ketorolac 10 mg PO TID PRN lancets (Pearl TherapeuticsStyle Lancets) every 4 hours prn dispense as 32 gauge if avil Lantus Solostar U-100 Insulin (insulin glargine) 40 units (0.4 mL) subcut DAILY 90 days NS lidocaine 5% 1 patch topical DAILY PRN lidocaine HCl 2% 1 appl mucous membrane BID PRN 30 days lorazepam 0.5 mg PO BID-TID PRN montelukast 10 mg PO DAILY nebulizer accessories NEBULIZER FACE MASK ADULT, USE DIRECTED nebulizers (AeroEclipse II Nebulizer) As directed pen needle, diabetic (BD Sondra 2nd Gen Pen Needle) 4 times daily pioglitazone 45 mg PO DAILY 90 days sennosides (Natural Senna Laxative) 17.2 mg (2 x 8.6 mg) PO BEDTIME sertraline 50 mg PO DAILY PRN sertraline 100 mg PO DAILY PRN Shower Chair As directed simethicone 125 mg PO BID-QID PRN solifenacin (Vesicare) 5 mg PO DAILY PRN [toilet seat elevator As directed] zolpidem 5 mg PO BEDTIME HPI Comments Details: Mellisa is a pleasant 58-year-old Guatemalan-speaking female patient of Dr. Dorman. She has a past medical history of palpitations, type 2 diabetes, polyneuropathy, vitamin-B 12 deficiency, depression, dyslipidemia, umbilical hernia, arthritis, hearing loss, insomnia, anxiety, asthma, hypertension, polyarthralgia, and GERD. She presents to the office today for follow-up. In discussion with the patient today she reports having seeked emergency room care late last year for umbilical pain she had been experiencing at which time a CT was ordered and performed. She reports following up with her senior web developer in recommendations were made for urology assessment due to CT findings. These results were reviewed and communicated with the patient today. 06/25 mild right hydronephrosis. No urolithiasis. Probable mild UVJ obstruction. Patient was previously followed up on for stress urinary incontinence as well as urinary tract infection in the past at which time a retroperitoneal ultrasound was ordered 12/24 noting bilateral kidneys no calculi, lesions, and or hydronephrosis. She currently denies any bothersome urinary issues. She reports compliance with VESIcare and feels this has been extremely helpful in stress/urge incontinence she had been experiencing. We discussed at length mild hydronephrosis and further workup to include repeat imaging. In office urinalysis results reviewed with the patient today. PVR 0 mL. She discusses her upcoming umbilical hernia surgery. She denies hematuria, dysuria, foul smelling urine, changes to urinary stream, flank pain, fever, and or chills. She otherwise offers no other issues or concerns at this time. 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 Pernicious anemia Insomnia Depression with anxiety Moderate asthma Essential hypertension Polyarthralgia GERD (gastroesophageal reflux disease) Type 2 diabetes mellitus with other diabetic neurological complication Diabetes Hearing loss Surgical History Hx of bilateral cataract extraction History of esophagogastroduodenoscopy (EGD) H/O colonoscopy History of cholecystectomy History of umbilical hernia repair History of foot surgery History of carpal tunnel release History of surgery on arm History of endometrial ablation History of tubal ligation Family History Mother Breast cancer Paternal Grandmother Breast cancer Brother Colon cancer Family/Other FH: mental illness Mental health disorder Father CAD (coronary artery disease) Social History Household Members: Children Housing: Apartment Are you a primary hospice care consultant to a significant other at home: No Do you presently have visiting nurse or other home services: Yes (ARMED SECURITY OFFICER) Alcohol intake: never Patient Tobacco Use Status: Never used Tobacco e-Cigarette/Vaping Use: Never Used Second Hand Smoke Exposure: No service: No Current occupational status: disabled Current occupation: Right hand dominate Cognitive needs: No Hearing needs: No Vision needs: Yes Female Reproductive History Menstrual Age of Menarche: 11 Review of Systems Const Reports no additional complaints Eyes Reports no additional complaints ENT Reports no additional complaints Card Reports as per HPI Resp Reports as per HPI GI Reports as per HPI Reports as per HPI Musc Reports as per HPI Neuro Reports as per HPI Psych Reports as per HPI Endo Reports as per HPI Kranthi/Lymph Reports as per HPI Aller/Immun Reports as per HPI Physical Exam Const General: cooperative, healthy appearing, comfortable, no acute distress, well developed, alert and awake Orientation/consciousness: patient oriented x3 Limitations: language barrier HEENT Head: Yes normal to inspection, Yes normocephalic and Yes atraumatic Ears: hearing grossly normal bilaterally Eyes General: appearance normal, both eyes and all related structures Neck Neck: Yes normal visual inspection and Yes trachea midline Chest Chest palpation & inspection: normal inspection of the chest Resp Effort & Inspection: normal respiratory effort and able to speak in complete sentences Cardio Rate: regular rate GI Inspection: Yes normal to inspection General: Yes no CVA tenderness Back/Spine/Pelvis Back: no CVA tenderness Skin General skin exam: no rashes or lesions noted Neuro General: patient oriented x3 Extrem General: Yes normal to inspection Psych Appearance: grossly normal and well kempt Mental Status: mental status grossly normal Speech and movement: Normal speech and movement present and Clear speech present Affect: normal affect Attitude: cooperative Thought process: Normal thought process present Thought content: Normal thought content present Insight: Fair insight present (Psych) Judgement: Fair judgement present (Psych) Results AMB Urinalysis, Automated UA Leukoctes 0 Sharla/uL Last Edit by Chika Holt on 09/10/24 10:19 UA Nitrite Negative Last Edit by Chika Holt on 09/10/24 10:19 UA Urobilinogen 3.5 mg/dL Last Edit by Chika Holt on 09/10/24 10:19 UA Protein 1 mg/dL Last Edit by Chika Holt on 09/10/24 10:19 UA pH 6.0 Last Edit by Chika Holt on 09/10/24 10:19 UA Blood 0 Heladio/uL Last Edit by Chika Holt on 09/10/24 10:19 UA Specific Victor 1.015 Last Edit by Chika Holt on 09/10/24 10:19 UA Ketone Negative Last Edit by Chika Holt on 09/10/24 10:19 UA Bilirubin 0 mg/dL Last Edit by Chika Holt on 09/10/24 10:19 UA Glucose 60 mg/dL Last Edit by Chika Holt on 09/10/24 10:19 Quality Reporting (2019) Adult ([facility] 138/08/24/68) Smoking risk assessment performed?: Yes Patient Tobacco Use Status: Never used Tobacco Results Reviewed Results Reviewed: Laboratory Last Values Urine pH (Auto) 6.0 09/10/24 10:17 Specific Victor (Auto) 1.015 09/10/24 10:17 Urine Protein (Auto) 1 mg/dL 09/10/24 10:17 Glucose (UA)(Auto) 60 mg/dL 09/10/24 10:17 Urine Ketones (Auto) Negative 09/10/24 10:17 Urine Blood (Auto) 0 Heladio/uL 09/10/24 10:17 Urine Nitrite (Auto) Negative 09/10/24 10:17 Urine Bilirubin (Auto) 0 mg/dL 09/10/24 10:17 Urine Urobilinogen (Auto) 3.5 mg/dL 09/10/24 10:17 Leukocyte Esterase (Auto) 0 Sharla/uL 09/10/24 10:17 Ordering Physician: Pearl López MD Date of Service: 07/01/24 Procedure(s): CT abdomen pelvis w IV con Accession Number(s): [id number] cc: Pearl López MD; Norma Lopes MD~ Report Number: [id number]: Total DLP = 534.00 mGy-cm CLINICAL HISTORY: periumbillical pain CT abdomen and pelvis with contrast Comparison: CT/SR - CT ABDOMEN PELVIS W CON - 09/05/21 11:03 EST Findings: No consolidation or effusion. The gallbladder is surgically absent. No focal hepatic lesion identified. Pancreas, spleen and adrenal glands are within normal limits. Mild right hydronephrosis is present with ureteropelvic junction obstruction configuration. No urolithiasis. Left kidney is non hydronephrotic. No bowel obstruction, pneumoperitoneum, or pneumatosis. Pelvic contents unremarkable. Normal appendix. No acute fracture. IMPRESSION: Mild right hydronephrosis. No urolithiasis. Probable mild ureteropelvic junction obstruction. Assessment & Plan Assessment & Plan (1) Hydronephrosis: Code(s): N13.30 - Unspecified hydronephrosis Category: Medical Plan Recent CT results reviewed with the patient today; as noted above. She currently denies any bothersome urinary issues. She reports be happy with current voiding parameters. Continue VESIcare. BUN and creatinine results reviewed with the patient today; as noted above. We discussed at length potential causes of mild hydronephrosis Will obtain repeat CT urogram as well as BUN and creatinine for further assessment evaluation. In office urinalysis results reviewed with the patient today. PVR 0 mL. Follow-up in 1-3 months with imaging and labs to be completed prior; or sooner with any issues, concerns, and or questions. Orders: Orders Creatinine Today N13.30 - Unspecified hydronephrosis AMB Urinalysis Automated Today Z13.9 - Encounter for screening, unspecified Blood Urea Nitrogen Today N13.30 - Unspecified hydronephrosis CT urogram Today N13.30 - Unspecified hydronephrosis Patient Instructions: The patient had an opportunity to ask questions regarding the treatment plan. All questions were answered. Physical exam, labs, and imaging were discussed and reviewed in detail. As well as risks, benefits, and discussion of treatment choices. No major barriers to understanding were identified. The patient expressed understanding and agreement with the above treatment plan. The patient was made aware they should contact our office by phone for worsening of their current condition, the appearance of new symptoms, or with any questions or concerns. Compliance is encouraged with any medications and follow up testing that is ordered. It is a privilege to be allowed the opportunity to participate in? your urological care.? Again, if you have any questions or concerns If you have any questions or concerns please do not hesitate to contact me. The office is [phone]. This note is constructed using voice recognition software. While every effort has been made to ensure accuracy japanese professor errors may have been included. Yours sincerely, SHAINA Messina Coding Level of Care Code Est Pt Level 4 (08763) Complex EM visit Add On G2211 Diagnoses Hydronephrosis N13.30 Time Spent (min) 30
--- OUTSIDE RECORDS SUMMARY | 2024-09-10 11:28 | XMS_ITS | Clinical Summary ---
[facility] Address [address] [place] [address] Care Team Providers Care Guardian Ad Litem Name Role Phone Unavailable Primary Care Provider [...]
--- OUTSIDE RECORDS SUMMARY | 2024-09-10 11:28 | XMS_ITS | Clinical Summary ---
Author Organization [facility] Address [address] [place] [address] Care Team Providers Care Hydrologic Modeler Name Role Phone Unavailable Primary Care Provider [...] Drug Screen 07/03/2023 Depression Annual Screen 07/03/2023 [id number] ( season) 2024 021, 10/07/2020 Imm-Influenza (#1) 2024 04/04/2019, 05/30/2018 Imm-DTaP/Tdap/Td (2 - Td or Tdap) 01/06/2030 020, 07/08/2015 Cervical Ablation/Cold-Knife Conization Discontinued Cervical Cryotherapy Discontinued Colposcopy Discontinued Endometrial Biopsy Discontinued Excision/Leep Discontinued HPV Genotyping Discontinued Vaginal Pap Discontinued Vulvoscopy Discontinued Insurance [facility] [email or web address] Member Subscriber Plan / Payer (Ef fective 2020-Present) Name:Mellisa Durham Relation to Subscriber:Self Name:Mellisa Durham Payer ID:[id number] Group ID:[id number] Type:Medicaid Address: [facility] [address] [place] [address]
== END 2024-09-10 10:43 | disposition home or self-care (01) ==
LOC: HO.HUSH 09:58
PROVIDERS: PCP Internal Medicine; Visit Provider Nurse Practitioner Family
DX: N13.30 Unspecified hydronephrosis (principal); Z13.9 Encounter for screening, unspecified
CPT/HCPCS: 99214; G2211

== ENCOUNTER 2024-09-11 05:39 | Day surgery (SDC) | payer OTHER, SELFPAY ==
[2024-08-28 10:29] VITALS: BP 121/60; PULSE 78; RESP 18; O2SAT 96; BMI 30.5
--- NOTE | 2024-08-28 10:43 | HO.ANESPROP2 ---
Documented by User: Paula French NP 09/10/24 12:42 HPI - Anesthesia Eval Consult details Narrative: 58yo F for Open reducible recurrent umbilical hernia with mesh, 09/11/24 Cardiac optimized by [facility]. W/U for CP neg with EKG, ECHO, Stress ECHO Jul 2024 - bronchitis, mild pna - resolved No CP/SOB with regular activity Asthma: Not needed rescue inhaler since July DM: FBS ~175 (pt thinks increased from baseline r/t abd pain), A1C 8% 07/2024 GERD: ppi control PMFSH Active Problems Active Problems: All Active Problems Hypovitaminosis D (Acute) Bronchitis (Acute) Hydronephrosis (Acute) Preoperative cardiovascular examination (Acute) SOB (shortness of breath) (Acute) Recurrent umbilical hernia (Acute) Cough (Acute) Environmental allergies (Acute) Chest pain (Acute) Foreign body in right ear (Acute) Pleuritic pain (Acute) COVID-19 (Acute) Postmenopausal bleeding (Acute) Loss of balance (Acute) Gingivitis (Acute) Pre-op evaluation (Acute) Vaginal irritation (Acute) Proteinuria (Acute) Stress incontinence (Acute) Atelectasis, right (Acute) Environmental and seasonal allergies (Acute) Uterine myoma (Acute) Atelectasis, bilateral (Acute) Right shoulder pain (Acute) Urine incontinence (Acute) Urinary frequency (Acute) Post-COVID syndrome (Acute) Pharyngitis (Acute) ETD (eustachian tube dysfunction) (Acute) Physical exam (Acute) Asthma exacerbation (Acute) Right foot injury (Acute) Hyperlipidemia LDL goal <70 (Acute) Neck pain (Acute) Hearing loss (Acute) Right hip pain (Acute) Microscopic hematuria (Acute) Urinary tract infection (Acute) Foamy urine (Acute) Rhinitis (Acute) Family history of breast cancer in mother (Acute) Pelvic pain (Acute) Breast lump (Acute) Well woman exam (Acute) Fatigue (Acute) COVID-19 (Acute) Tinea pedis (Acute) Left serous otitis media (Acute) Right otitis media (Acute) Otalgia, right ear (Acute) Bruised toe (Acute) Atrophic vaginitis (Acute) Candidal vulvovaginitis (Acute) Breast calcification, left (Acute) Asthma (Acute) Otitis media (Acute) Otitis externa (Acute) Ear discomfort (Acute) Palpitations (Acute) Overweight (Acute) Type 2 diabetes mellitus with diabetic polyneuropathy (Acute) B12 deficiency (Acute) Tubular adenoma (Acute) Moderate recurrent major depression (Acute) Dyslipidemia (Acute) Umbilical hernia (Acute) Edema (Acute) Arthritis (Acute) Ear pain (Acute) 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 (Acute) Pernicious anemia (Acute) Hearing loss (Acute) Insomnia (Acute) Moderate asthma (Acute) Essential hypertension (Acute) Polyarthralgia (Acute) GERD (gastroesophageal reflux disease) (Acute) Hearing loss (Acute) Past Medical History Medical History Ear discomfort Palpitations Overweight Type 2 diabetes mellitus with diabetic polyneuropathy B12 deficiency DM2 (diabetes mellitus, type 2) Tubular adenoma Moderate recurrent major depression Dyslipidemia Umbilical hernia Edema Arthritis Ear pain 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 Pernicious anemia Insomnia Depression with anxiety Moderate asthma Essential hypertension Polyarthralgia GERD (gastroesophageal reflux disease) Type 2 diabetes mellitus with other diabetic neurological complication Diabetes Hearing loss Family History Family History Mother Breast cancer Paternal Grandmother Breast cancer Brother Colon cancer Family/Other FH: mental illness Mental health disorder Father CAD (coronary artery disease) Family history of problems with anesthesia: No Surgical History Surgical History Hx of bilateral cataract extraction History of esophagogastroduodenoscopy (EGD) H/O colonoscopy History of cholecystectomy History of umbilical hernia repair History of foot surgery History of carpal tunnel release History of surgery on arm History of endometrial ablation History of tubal ligation History of Problems with Anesthesia: No Social History Social History Household Members: Children Housing: Apartment Are you a primary post anesthesia care unit nurse to a significant other at home: No Do you presently have visiting nurse or 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 If so, by whom?: No Are you DNR?: No Advance Directives: No Advance Directives Information Provided: Yes Advance Directives on File: No Recently lost weight without trying: No Eating poorly because of decreased appetite: No Nutrition Risks: No Nutritional Risk Patient : No : No Poor oral hygiene: Yes (partial upper denture and missing molars) service: No Current occupational status: disabled Current occupation: Right hand dominate Cognitive needs: No Hearing needs: No Vision needs: Yes Meds Allergies Allergy/AdvReac Type Severity Reaction Status Date / Time Penicillins Allergy Mild RASH/DYSPNE Verified 09/10/24 10:41 A canagliflozin [From Invokana] AdvReac Severe uti Verified 09/10/24 10:41 metformin AdvReac Intermediate stomach Verified 09/10/24 10:41 upset mounjaro AdvReac Intermediate Abdominal Uncoded 09/10/24 10:41 Pain trulicity AdvReac Intermediate Abdominal Uncoded 09/10/24 10:41 Pain Home Medications ?Medication ?Instructions ?Recorded ?Confirmed ?Last Taken ?Type zolpidem 5 mg tablet 5 mg PO BEDTIME 04/16/20 09/02/24 Unknown History sertraline 100 mg tablet 100 mg PO DAILY PRN Anxiety 12/14/23 09/02/24 Unknown History sertraline 50 mg tablet 50 mg PO DAILY PRN Anxiety 12/14/23 09/02/24 Unknown History fluticasone propionate 230 2 puff inhalation BID 06/17/24 09/02/24 Unknown History mcg-salmeterol 21 mcg/actuation HFA inhaler (Advair HFA) lorazepam 0.5 mg tablet 0.5 mg PO BID-TID PRN Anxiety 08/26/24 09/02/24 Unknown History atorvastatin 40 mg tablet 40 mg PO DAILY 08/28/24 09/02/24 Unknown History fluticasone propionate 50 1 spray intranasal DAILY PRN 08/28/24 09/02/24 Unknown History mcg/actuation nasal Allergy Symptoms spray,suspension (Flonase Allergy Relief) hydrochlorothiazide 12.5 mg tablet 12.5 mg PO QAM 08/28/24 09/02/24 Unknown History lidocaine 5 % topical patch 1 patch topical DAILY PRN Pain 08/28/24 09/02/24 Unknown History solifenacin 5 mg tablet (Vesicare) 5 mg PO DAILY PRN Bladder Spasms 08/28/24 09/02/24 Unknown History Exam Exam Date and Time: January 29, 2024 0815 Height,Weight and Vital Signs: Height 5 ft 3 in Weight 78.018 kg Last Vital Signs Pulse 78 08/28/24 10:29 Resp 18 08/28/24 10:29 BP 121/60 08/28/24 10:29 Pulse Ox 96 08/28/24 10:29 O2 Del Method Room Air 08/28/24 10:29 Pertinent Lab Results Pertinent Lab Results: Laboratory Tests 06/30/24 20:04 WBC 7.7 Hgb 13.9 Hct 42.8 Plt Count 141 L Sodium 138 Potassium 3.5 Chloride 105 Carbon Dioxide 25 BUN 14 Creatinine 0.85 Narrative Narrative: EKG 04/2024 Vent. Rate : 081 BPM Atrial Rate : 081 BPM P-R Int : 150 ms QRS Dur : 076 ms QT Int : 398 ms P-R-T Axes : 067 065 047 degrees QTc Int : 462 ms Normal sinus rhythm Normal ECG When compared with ECG of 03-MAR-2024 07:48, No significant change was found ECHO 2023 Conclusions: - 1. Normal LV ejection fraction of 60 65% with impaired relaxation filling pattern 2. Normal cardiac valvular Dopplers 3. Normal RV systolic pressure 4. No gross pericardial effusion Stress ECHO 2023 Conclusion : Stress echo negative for ischemia at achieved workload and HR Airway Mallampati Class: II TM Dist: >3cm Neck ROM: Full Loose/Missing/Broken Teeth: Yes (Molars missing) Heart: RRR Lungs: CTAB Assessment and Plan Assessment Anesthesia Assessment: Anesthesia Plan Discussed and PAT Visit Final Anesthetic Review Family History of Problems with Anesthesia: No History of Problems with Anesthesia: No Documented by User: Cindy Brady MD 09/11/24 08:00 [facility] Past Medical History Medical History Ear discomfort Palpitations Overweight Type 2 diabetes mellitus with diabetic polyneuropathy B12 deficiency DM2 (diabetes mellitus, type 2) Tubular adenoma Moderate recurrent major depression Dyslipidemia Umbilical hernia Edema Arthritis Ear pain 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 Pernicious anemia Insomnia Depression with anxiety Moderate asthma Essential hypertension Polyarthralgia GERD (gastroesophageal reflux disease) Type 2 diabetes mellitus with other diabetic neurological complication Diabetes Hearing loss Family History Family History Mother Breast cancer Paternal Grandmother Breast cancer Brother Colon cancer Family/Other FH: mental illness Mental health disorder Father CAD (coronary artery disease) Family history of problems with anesthesia: No Surgical History Surgical History Hx of bilateral cataract extraction History of esophagogastroduodenoscopy (EGD) H/O colonoscopy History of cholecystectomy History of umbilical hernia repair History of foot surgery History of carpal tunnel release History of surgery on arm History of endometrial ablation History of tubal ligation History of Problems with Anesthesia: No Social History Social History Household Members: Children Housing: Apartment Are you a primary post anesthesia care unit nurse to a significant other at home: No Do you presently have visiting nurse or 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 If so, by whom?: No Are you DNR?: No Advance Directives: No Advance Directives Information Provided: Yes Advance Directives on File: No Recently lost weight without trying: No Eating poorly because of decreased appetite: No Nutrition Risks: No Nutritional Risk Patient : No : No Poor oral hygiene: Yes (partial upper denture and missing molars) service: No Current occupational status: disabled Current occupation: Right hand dominate Cognitive needs: No Hearing needs: No Vision needs: Yes Meds Allergies Allergy/AdvReac Type Severity Reaction Status Date / Time Penicillins Allergy Mild RASH/DYSPNE Verified 09/10/24 10:41 A canagliflozin [From Invokana] AdvReac Severe uti Verified 09/10/24 10:41 metformin AdvReac Intermediate stomach Verified 09/10/24 10:41 upset mounjaro AdvReac Intermediate Abdominal Uncoded 09/10/24 10:41 Pain trulicity AdvReac Intermediate Abdominal Uncoded 09/10/24 10:41 Pain Home Medications ?Medication ?Instructions ?Recorded ?Confirmed ?Last Taken ?Type zolpidem 5 mg tablet 5 mg PO BEDTIME 04/16/20 09/02/24 Unknown History sertraline 100 mg tablet 100 mg PO DAILY PRN Anxiety 12/14/23 09/02/24 Unknown History sertraline 50 mg tablet 50 mg PO DAILY PRN Anxiety 12/14/23 09/02/24 Unknown History fluticasone propionate 230 2 puff inhalation BID 06/17/24 09/02/24 Unknown History mcg-salmeterol 21 mcg/actuation HFA inhaler (Advair HFA) lorazepam 0.5 mg tablet 0.5 mg PO BID-TID PRN Anxiety 08/26/24 09/02/24 Unknown History atorvastatin 40 mg tablet 40 mg PO DAILY 08/28/24 09/02/24 Unknown History fluticasone propionate 50 1 spray intranasal DAILY PRN 08/28/24 09/02/24 Unknown History mcg/actuation nasal Allergy Symptoms spray,suspension (Flonase Allergy Relief) hydrochlorothiazide 12.5 mg tablet 12.5 mg PO QAM 08/28/24 09/02/24 Unknown History lidocaine 5 % topical patch 1 patch topical DAILY PRN Pain 08/28/24 09/02/24 Unknown History solifenacin 5 mg tablet (Vesicare) 5 mg PO DAILY PRN Bladder Spasms 08/28/24 09/02/24 Unknown History Exam Height,Weight and Vital Signs: Height 5 ft 3 in Weight 78.018 kg Last Vital Signs Pulse 78 08/28/24 10:29 Resp 18 08/28/24 10:29 BP 121/60 08/28/24 10:29 Pulse Ox 96 08/28/24 10:29 O2 Del Method Room Air 08/28/24 10:29 Vital Signs Temp Pulse Resp BP Pulse Ox O2 Del Method 09/11/24 06:28 97.2 F 78 16 129/71 96 Room Air Pertinent Lab Results Pertinent Lab Results: Laboratory Tests 06/30/24 20:04 WBC 7.7 Hgb 13.9 Hct 42.8 Plt Count 141 L Sodium 138 Potassium 3.5 Chloride 105 Carbon Dioxide 25 BUN 14 Creatinine 0.85 Lab Results 09/11/24 Range/Units 06:22 POC Glucose 163 H (60-115) mg/dL Airway Mallampati Class: I TM Dist: >3cm Neck ROM: Full Partial: Upper Loose/Missing/Broken Teeth: Yes (Molars missing. Partial top dentures. Denies broken or loose teeth) Heart: RRR Lungs: CTAB Assessment and Plan Assessment Anesthesia Assessment: Anesthesia Plan Discussed, PAT Visit and Chart Reviewed Final Anesthetic Review Family History of Problems with Anesthesia: No History of Problems with Anesthesia: No NPO: Yes ASA Class: III Final Preanesthetic Review: No Changes in Pt Med Stat, Meds/Allgs Chart Reviewed, Consent Obtained/Reviewed and Anes Risks/Benef Reviewed Patient Risk: Intermediate Procedure Risk: Low Assessment/Block/Sedation in SS: Assess/Block/Sedation-SS Anesthetic Plan Anesthetic Plan: GA Disposition: Standard PACU
--- NOTE | 2024-09-10 12:38 | MHC.SHP ---
Pre-Procedural Eval Section A - 24 Hr Update-Section A only Date of Service: 09/11/24 The patient is an INPATIENT: No Changes since office visit: No Cold of Flu in the past 2 weeks, No New Medical Problems, No Changes in Medication and No Patient answered all questions Section B - Complete if H&P > 30 days Chief Complaint: Umbilical hernia without obstruction or gangrene Allergies: Allergies Allergy/AdvReac Type Severity Reaction Status Date / Time Penicillins Allergy Mild RASH/DYSPNE Verified 09/10/24 10:41 A canagliflozin [From Invokana] AdvReac Severe uti Verified 09/10/24 10:41 metformin AdvReac Intermediate stomach Verified 09/10/24 10:41 upset mounjaro AdvReac Intermediate Abdominal Uncoded 09/10/24 10:41 Pain trulicity AdvReac Intermediate Abdominal Uncoded 09/10/24 10:41 Pain Review of Systems Sugical H&P ROS: Negative: Constitution, Cardiovascular, Respiratory, Neurological, Psychiatric, Hem-Onc, Allergic/Immunologic, Gastrointestinal, Genitourinary, Musculoskeletal, Integumentary, Endocrine and Eyes/Ears/Nose/Throat Exam Surgical H&P Exam: Normal: HEENT, Normal: Heart, Normal: Lungs, Normal: Extremities, Normal: Abdomen, Normal: Skin and Normal: Neurological Plan I have reviewed the history and physical and performed a pertinent physical examination on my patient. No changes have occurred unless specified. Time Spent With Patient Time: Total time managing care of this patient today ____ minutes.
[2024-09-11] VITALS (8 sets, daily range): BP systolic 107–129; BP diastolic 54–71; PULSE 68–86; RESP 14–17; TEMP 36.2–36.6; O2SAT 93–97; BMI 29.5
[2024-09-11 06:25] LABS: Glucose, Whole Blood 163 mg/dL (60-115)
[2024-09-11] MEDS: Lactated Ringers 1,000 ML 100 ML IVCONT (06:27)
[2024-09-11] MEDS: Clindamycin Phosphate/D5W 900 MG/50 ML PIGGYBACK 50 MG IV (07:45)
--- NOTE | 2024-09-11 08:29 | P.OP_ITS ---
Operative Note Operative Note Date of Service: 09/11/24 Narrative: Preoperative diagnosis: [] Symptomatic enlarging recurrent umbilical hernia Postop diagnosis: [] The same Procedure [] open umbilical recurrent herniorrhaphy Surgeon: [] [facility] Program Director: [] Type of Anesthesia: [] General Indication for surgery: [] Patient was status post prior inguinal hernia repair. Intraoperative findings demonstrated a recurrent hernia with the previously placed mesh ADLs from the left lateral prior repair with incarcerated omental contents. Uneventful fascia was clearance and placement of new mesh was performed. Findings: [] Patient brought to the operating room, placed on operative table in supine position, after an adequate level general anesthesia was induced, the patient's abdomen which was moderately corpulent was prepped and draped in usual sterile fashion. Using an infraumbilical incision with the prior scar from the patient's previous umbilical hernia surgery, this carried down through skin, subcu tissue, significant cicatrization down to a hernia sac. This was dissected off the back of the umbilicus and dissected down the fascia. Sac was opened were incarcerated omental contents were amputated along with the sac. Prior mesh findings noted above. Fascial margins were circumferentially cleared and a Bard dual mesh placed in the defect. The superficial layer of the mesh was circumferentially sutured to the surrounding fascia using interrupted 0 Ethibond suture. At completion of procedure, mesh was in good position with no gaps or tension. Wound was irrigated, secured hemostasis, and closed in the following manner; posterior aspect of the umbilicus was tacked to the wound floor using interrupted 3-0 Vicryl sutures. Skin was closed using interrupted inverted dermal 3-0 Vicryl sutures followed by Steri-Strips and sterile dressings. Wound was infiltrated at the beginning at the end with 0.5% Marcaine. Sponge, needle, and instrument counts reported correct. Patient tolerated the procedure well and emerged from anesthesia stable condition. EBL minimal
[2024-09-11] MEDS: fentaNYL citrate/PF 100 MCG/2 ML VIAL 25 MCG IVPUSH ×2 (08:45→08:50)
== END 2024-09-11 10:05 | disposition home or self-care (01) ==
PROVIDERS: PCP Internal Medicine; Visit Provider Surgery
PROC: (CPT 49594; principal; 2024-09-11 07:30)
DX: K42.0 Umbilical hernia with obstruction, without gangrene (principal); E65 Localized adiposity; K21.9 Gastro-esophageal reflux disease without esophagitis; I10 Essential (primary) hypertension; E11.42 Type 2 diabetes mellitus with diabetic polyneuropathy; E78.5 Hyperlipidemia, unspecified; D51.0 Vitamin B12 deficiency anemia due to intrinsic factor deficiency; E55.9 Vitamin D deficiency, unspecified; J45.998 Other asthma; J98.11 Atelectasis; R60.9 Edema, unspecified; R00.2 Palpitations; H91.90 Unspecified hearing loss, unspecified ear; F41.8 Other specified anxiety disorders; Z79.4 Long term (current) use of insulin; Z79.51 Long term (current) use of inhaled steroids; Z79.899 Other long term (current) drug therapy; Z88.0 Allergy status to penicillin; Z88.8 Allergy status to other drugs, medicaments and biological substances; Z98.890 Other specified postprocedural states
CPT/HCPCS: 49594; 82947; 88304; C1781; J0736; J1100; J2003; J2250; J2371; J2405; J2704; J2795; J3010

== ENCOUNTER → 2024-09-11 05:39 | Outpatient (BNV) | payer OTHER, SELFPAY | PROVIDERS: PCP Internal Medicine; Visit Provider Surgery | DX: K42.0 Umbilical hernia with obstruction, without gangrene (principal) | CPT/HCPCS: 49616 ==

== ENCOUNTER 2024-09-23 09:42 | Outpatient (AMB) | payer OTHER, SELFPAY ==
--- NOTE | 2024-09-23 09:45 | MHC.OFFVIS ---
Vital Signs 09/23/24 09:51 Height 5 ft 3 in Weight 168 lb BMI 29.8 BP 121/60 Blood Pressure Location Lt brachial Position Sitting Pulse 68 Intake Visit Reasons: s/p umbilical hernia w/mesh Intake Note: Patient post op for s/p umbilical hernia w/mesh Patient cc: red/swelling on incision with discomfort. Signals Collector/Analyst Required: Yes Accompanied by: Self / Same As Patient Allergies Penicillins Allergy (Mild, Verified 09/10/24 10:41) RASH/DYSPNEA canagliflozin [From Invokana] Adverse Reaction (Severe, Verified 09/10/24 10:41) uti metformin Adverse Reaction (Intermediate, Verified 09/10/24 10:41) stomach upset mounjaro Adverse Reaction (Intermediate, Uncoded 09/10/24 10:41) Abdominal Pain trulicity Adverse Reaction (Intermediate, Uncoded 09/10/24 10:41) Abdominal Pain HPI Comments Details: Patient presents for follow-up status post umbilical hernia repair. No wound issues or complaints. She is starting a diet. He is having regular bowel habits. She is increasing her activity level. Minimal incisional discomfort. 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 Pernicious anemia Insomnia Depression with anxiety Moderate asthma Essential hypertension Polyarthralgia GERD (gastroesophageal reflux disease) Type 2 diabetes mellitus with other diabetic neurological complication Diabetes Hearing loss Surgical History Hx of bilateral cataract extraction History of esophagogastroduodenoscopy (EGD) H/O colonoscopy History of cholecystectomy History of umbilical hernia repair History of foot surgery History of carpal tunnel release History of surgery on arm History of endometrial ablation History of tubal ligation Family History Mother Breast cancer Paternal Grandmother Breast cancer Brother Colon cancer Family/Other FH: mental illness Mental health disorder Father CAD (coronary artery disease) Social History Household Members: Children Housing: Apartment Are you a primary nonfarm animal caretaker to a significant other at home: No Do you presently have visiting nurse or other home services: 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 Incision clean dry and intact. Some surrounding ecchymosis which was expected. Assessment & Plan Assessment & Plan (1) Status post umbilical hernia repair, follow-up exam: Code(s): Z09 - Encounter for follow-up examination after completed treatment for conditions other than malignant neoplasm Category: Medical Plan Patient was been given local instructions, and will otherwise follow-up p.r.n.. All questions answered. Coding Level of Care Code Global (06858) Diagnoses Status post umbilical hernia repair, follow-up exam Z09
[2024-09-23 09:51] VITALS: BP 121/60; PULSE 68; BMI 29.8
== END 2024-09-23 10:16 | disposition home or self-care (01) ==
PROVIDERS: PCP Internal Medicine; Visit Provider Surgery
DX: K42.9 Umbilical hernia without obstruction or gangrene (principal); Z09 Encounter for follow-up examination after completed treatment for conditions other than malignant neoplasm
CPT/HCPCS: 99212

== ENCOUNTER → 2024-09-23 09:42 | Outpatient (BNVA) | payer OTHER, SELFPAY | PROVIDERS: PCP Internal Medicine; Visit Provider Surgery | DX: Z09 Encounter for follow-up examination after completed treatment for conditions other than malignant neoplasm (principal); Z87.19 Personal history of other diseases of the digestive system; Z98.890 Other specified postprocedural states | CPT/HCPCS: 99212 ==

== ENCOUNTER 2024-10-11 11:03 | Outpatient (AMB) | payer OTHER, SELFPAY ==
--- NOTE | 2024-10-11 05:59 | A.OFFVIS_ITS ---
Vital Signs 10/11/24 11:12 Height 5 ft 3 in BP 142/72 H Blood Pressure Location Rt brachial Position Sitting Pulse 85 Pulse Source Pulse Oximeter Pulse Oximetry (%) 98 Oxygen Delivery Method Room Air Intake Visit Reasons: DM Intake Note: Patient presents today for a follow-up on Type 2 Diabetes Mellitus: Last Diabetic eye exam was on: 04/2024, has an appt today 10/11/2024 Last Podiatry exam was on: Does not see a Supervisor Calibration Most recent HbA1c: 8.0%, 07/30/2024 Random Glucose- 270 mg/dL, Today Aco Coordinator Required: Yes Aco Coordinator Language: Soil Science Technical Officer Services: Aco Coordinator Present Aco Coordinator Name: NACHO Bruno/KI COLLINS Information Interpreted: non-clinical & clinical Accompanied by: Self / Same As Patient Allergies Penicillins Allergy (Mild, Verified 10/11/24 11:08) RASH/DYSPNEA canagliflozin [From Invokana] Adverse Reaction (Severe, Verified 10/11/24 11:08) uti metformin Adverse Reaction (Intermediate, Verified 10/11/24 11:08) stomach upset mounjaro Adverse Reaction (Intermediate, Uncoded 10/11/24 11:08) Abdominal Pain trulicity Adverse Reaction (Intermediate, Uncoded 10/11/24 11:08) Abdominal Pain HPI Comments Details: Patient is a 58 year old female with DM type 2 diagnosed around 2004 who presents for management of diabetes. She was last seen 07/30/24 with an A1C of 8% but had been on prednisone for 5 days prior. 04/25/24 7.4% 07/30/24 8% had been on prednisone for 5 days prior to previous visit. Pre pump she was 8.3%. She had been having difficulty pairing her sensor to her pump and has been advised by her surgeon that she should not be using a pump for 3 months after surgery to allow for healing of the abdomen. Surgery was done one month ago and she has no post op issues.She was having difficulty as the pump is in Luxembourgish and she does not read Luxembourgish and was not a good candidate for this pump. She was switched from a Dexcom to a freestyle Sandra at her last visit. Previous intolerance to medications: Trulicity and Mounjaro due to abdominal pain. Was not in Invokana which was stopped secondary to UTI. Islet pump stopped due to difficulty pairing sensor and inability to operate secondary to language barrier. Current Medication: pioglitazone 45 mg Lantus 40 units Humalog 12 units pre meal Dexcom average glucose: 256 14 day continuous glucose monitor report reviewed Glucose Managment indicator 9.4 % TIme in ranges: 54 % very high (above 250) 38 % high ?(181-250) 8 % in range ?(70-180] 0 % low (69-55) 0 % ?very low (below 54) Interpretation [readings consistently high with no lows ] Hypoglycemia: none recent Hyperglycemia: + Ophthalmology evaluation: 10/2023 -cataract surgery in 01/2024 No nephropathy: 04/13/2024 microalbumin 11.0 eGFR>60 Neuropathy: no numbness, tingling, pain or cramping in the extremities saw podiatry two years ago Not on statin last LDL 78 04/13/2024 Seen by Cardiology 2024 Stress echo negative for ischemia at achieved workload and HR 06/25 Normal LV ejection fraction of 60 65% with impaired relaxation filling pattern 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: housecleaning 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 [employer] Medical History Ear discomfort Palpitations Overweight Type 2 diabetes mellitus with diabetic polyneuropathy B12 deficiency DM2 (diabetes mellitus, type 2) Tubular adenoma Moderate recurrent major depression Dyslipidemia Umbilical hernia Edema Arthritis Ear pain nursing home (current) use of insulin Pernicious anemia Insomnia Depression with anxiety Moderate asthma Essential hypertension Polyarthralgia GERD (gastroesophageal reflux disease) Type 2 diabetes mellitus with other diabetic neurological complication Diabetes Hearing loss Surgical History Hx of bilateral cataract extraction History of esophagogastroduodenoscopy (EGD) H/O colonoscopy History of cholecystectomy History of umbilical hernia repair History of foot surgery History of carpal tunnel release History of surgery on arm History of endometrial ablation History of tubal ligation Family History Mother Breast cancer Paternal Grandmother Breast cancer Brother Colon cancer Family/Other FH: mental illness Mental health disorder Father CAD (coronary artery disease) Social History Household Members: Children Housing: Apartment Are you a primary healthcare management to a significant other at home: No Do you presently have visiting nurse or other home services: 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 Absence of acromegalic features. Neck exam reveals nl size thyroid about 15 gms. No thyroid nodules palpable. No carotid bruits present. Lungs CTA. Heart S1 S2, Reg R/R. No M/R G. well healed incision umbulicus. Skin exam reveals absence of vitiligo or acanthosis nigricans. No edema 2+ pulses Visual exam of foot performed. No ulcerations or open lesions. 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 She also has GI intolerance t o GLp-1 agonists with a recent A1c of 8% 07/30/24. New dosing: Lantus 50 units Hmalog 16 units tid with meals RTC one week for review of sensor and additional titration The patient had an opportunity to ask questions regarding treatment plan. The patient expressed understanding and agreement with the above treatment plan. The patient is aware they should contact our office by phone for worsening glucose readings or for any low blood sugars which may warrant a change in diabetes medication. Compliance is encouraged with medications and any followup testing/consults which may have been ordered. Medications: Changed From Lantus Solostar U-100 Insulin (insulin glargine) 40 units (0.4 mL) subcut DAILY 90 days 36 mL 3RF NS E11.65 - Type 2 diabetes mellitus with hyperglycemia To Lantus Solostar U-100 Insulin (insulin glargine) 50 units (0.5 mL) subcut DAILY 90 days 45 mL 3RF NS E11.65 - Type 2 diabetes mellitus with hyperglycemia Patient Instructions: The patient was counseled to achieve a target A1C of 7% (154 avg). Fasting blood sugars should be 90-130 in the morning and less than 180 two hours after meals. Reviewed the relationship between poor diabetic control and the development of complications. Take 15 carb carbohydrate grams to treat a low sugar (3-4 glucose tablets, half a glass of juice or 15 carbohydrate grams of soft candy such as gummie snacks). Recheck your sugar in 15 minutes and re-treat again with 15 carbohydrate grams if low or still with symptoms. Do not drive a car or operate machinery if you do not know what your blood sugar is, if it is low or in excess of 300. Check your feet daily looking for any signs of infection, drainage, redness, ulceration and seek medical attention if this occurs. Break in shoes gradually and do not wear open-toed shoes or walk stocking footed or barefooted. 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
[2024-10-11 11:12] VITALS: BP 142/72; PULSE 85; O2SAT 98
[2024-10-11 11:17] LABS: Glucose, Whole Blood 270 mg/dL (60-115)
--- OUTSIDE RECORDS SUMMARY | 2024-10-11 12:01 | XMS_ITS | Clinical Summary ---
Author Organization [facility] Address [address] [place] [address] Care Team Providers Care Blower Room Attendant Name Role Phone Unavailable Primary Care Provider Unavailabl e Source Comments PLEASE NOTE, if this patient is a minor, it may be UNLAWFUL to discuss sensitive information that is contained in these records (such as FAMILY PLANNING, MENTAL HEALTH or SUBSTANCE ABUSE) with the minor patient's parent or other person without the patient's specific authorization.[facility] Immunizations Immunization Administration Dates Next Due Moderna COVID-19 Vaccine, [...] Health Maintenance Due Date Last Done Comments Anxiety Screening 1964 Diabetes Screening 1964 HPV Screening 1964 Hepatitis C Screening 1964 Lipid Screening 1964 Pap + HPV 1964 Tobacco Screening 1964 HIV Screening 11/29/1979 Hypertension Screening (#1) 1982 Imm-Hepatitis B (1 of 3 - 19 + 3-dose series) 11/29/1983 Cervical Cancer Screening 1985 Pap Smear 1985 Breast Cancer Screening (Mammogram) 2004 CT Colonography 2009 Colonoscopy 2009 Colorectal Cancer Screening 2009 FIT/gFOBT 2009 Fecal DNA 2009 Flexible Sigmoidoscopy 2009 Imm-Zoster, Recombinant (1 of 2) 2014 Tnx-MJKWA-90 ( season) 2024 021, 10/07/2020 Imm-Influenza (#1) 2024 04/04/2019, 05/30/2018 Alcohol and Drug Screen 07/03/2024 Depression Annual Screen 07/03/2024 Imm-DTaP/Tdap/Td (2 - Td or Tdap) 01/06/2030 020, 07/08/2015 Cervical Ablation/Cold-Knife Conization Discontinued Cervical Cryotherapy Discontinued Colposcopy Discontinued Endometrial Biopsy Discontinued Excision/Leep Discontinued HPV Genotyping Discontinued Vaginal Pap Discontinued Vulvoscopy Discontinued [facility] Member Subscriber Plan / Payer (Ef fective 2020-Present) Name:Mellisa Durham Relation to Subscriber:Self Name:Mellisa Durham Payer ID:[id number] Group ID:[id number] Type:Medicaid Address: [facility] [address] [place] [address]
--- OUTSIDE RECORDS SUMMARY | 2024-10-11 12:02 | XMS_ITS | Data Portability ---
Author Organization ID - [facility], Allergy Address [address] [address] Care Team Providers Care Side Stitching Machine Operator Name Role Phone LUIS M GILLIAM Primary Care Provider Assessment Encounter Date Assessment Date Assessment LastModified by Organization Details LastModified Time 05/28/2024 05/28/2024 58 year old female with SNHL and TMJ presents for evaluation of ear blockage bilaterally. Otologic exam demonstrates TMs are intact with well-aerated middle ear spaces. EACs without obstruction. Tympanometry is type A bilaterally. Her hearing aids from [facility] were sent for adjustment. Recommend she trial the adjusted hearing aids. She will return for audiometric testing if abnormal auditory perception persists. Today we spent some time talking about the fact that cerumen is a natural antibiotic, antifungal, ups driver, and moisturizer of the delicate external auditory [...] Sensorine ural hearing loss of bilateral ears [id number] Active 2018 Sensorine ural hearing loss, bilateral ; Note: Date Diagnosed : 03/28/2019 3:34 PM (H90.3) Not Available [facility] 4 02:33:25 Pain of right temporoma ndibular joint 79392709718 173806 Active 2019 Arthralgi a of right temporoma ndibular joint; Note: Date Diagnosed : 0 3:09 PM (M26.621) Not Available [facility] 4 02:33:24 Abrasion of skin of left ear 06338936011 365053 Active 2018 Abrasion of left ear, initial encounter ; Note: Date Diagnosed : 03/28/2019 2:58 PM (S00.412A ) Not Available [facility] 4 02:33:25 Bilateral temporoma ndibular joint pain 71339130129 817531 Active 2021 Arthralgi a of bilateral temporoma ndibular joint; Note: Date Diagnosed : 08/26/2021 4:41 PM (M26.623) Not Available [facility] 4 02:33:30 Foreign body in left ear 79426447659 928689 Active 2018 Foreign body in left ear, initial encounter ; Note: Date Diagnosed : 03/28/2019 2:58 PM (T16.2XXA ) Not Available [facility] 4 02:33:35 Abnormal auditory perceptio n 65664690 Active 2023 Leonie wharton MA - [facility] 4 10:43:01 Problem Notes None recorded. Procedures Surgical History Date Name Laterality Status Provider Name and Address Organization Details Recorded Time 05/28/20 24 Tympanometry (80830) completed Leonie Peña MA - [facility] 05/28/2024 10:42:54 Imaging Results Imaging Date [...] unkno wn, unspe cifie d;; Not Available [facility] Medications Name Sig Start Date Stop Date Status Note LastModified by Organization Details LastModified Time cyclobenz aprine 10 mg tablet 2018 active Medicati on ID: [id number] D uration Value: 20 Brand Name: tish [...] mg tablet 05/28 completed Medicati on ID: [id number] D uration Value: 30 Brand Name: atorvast [...] mg tablet 05/28 completed Medicati on ID: [id number] B rand Name: ciproflo xacin HCl Send [...] ear drops 05/28 completed Medicati on ID: [id number] B rand Name: ofloxaci n Send Method: [...] mg tablet 2018 active Medicati on ID: [id number] D uration Value: 30 Brand Name: metoclop [...] injection solution 05/28 completed Medicati on ID: [id number] B rand Name: cyanocob alamin (vitamin B-12) Se nd Method: E-Prescr ibed Sub s Allowed: subs [place] Medic ationGen ericName : cyanocob alamin (vitamin B-12) Not Available Not Available Not Available esomepraz ole magnesium 40 mg capsule,d elayed release active Not Available Not Available Not Available omeprazol e 20 mg capsule,d elayed release 2018 active Medicati on ID: [id number] D uration Value: 30 Brand Name: omeprazo [...] completed Not Available Not Available Not Available Courtland Saline 0.65 % nasal spray aerosol 05/28 completed Medicati on ID: [id number] B rand Name: Courtland Saline S end Method: E-Prescr ibed Sub s Allowed: subs OK Medic ationGen ericName : Courtland Saline Not Available Not Available Not Available [...] pen injector 2018 active Medicati on ID: [id number] D uration Value: 28 Brand Name: Skyler [...] SNOMED-CT Code Diagnosis ICD10 Code Diagnosis Note [id number] MERRILL IRIZARRY MD [facility] [address] [address] 05/28/2024 10:13:26 05/28/2024 11:00:06 Abnormal auditory perception [id number] H93.299 Tympanomet ry: Right Ear:{{Type A* Type [...] a hermetic seal}} Bilateral temporomandibular joint pain [id number] 1529080 M26.623 Sensorineu ral hearing loss of bilateral ears 750743454 H90.3 Health Concerns Section Related Observation LastModified by Organization Detai ls LastModified Time None Recorded Concern Status LastModified by Organization Details LastModified Time None Recorded Advance Directives Directive None Recorded Payers Encounter Date Sequence Insurance Name Policy Number Policy Gamino Covered Member ID Gamino Member ID Guarantor Name 05/28/2024 1 [facility] PLAN (MEDICAID HMO) JAIDEN Durham [id number] Mellisa Durham Notes Date Note Type Note [...] ear infections. She has hearing aids from [facility] that she recently sent for adjustments. She has not worn them in 2 years. Occasional buzzing sounds bilaterally. MERRILL IRIZARRY MD [address] [place] [address], [phone] - [facility] 05/28/2024 17:20:37 OBGyn Episode No OBEpisode recorded.
--- OUTSIDE RECORDS SUMMARY | 2024-10-11 12:02 | XMS_ITS | Clinical Summary ---
[facility] Address [address] [place] [address] Care Team Providers Care Auditor Supervisor Name Role Phone Unavailable Primary Care Provider [...] - 2023-2 5 season) 2024 Influenza Vaccine (Season Ended) 2025 RSV Immunization Adult Patie nts (1 - 1-dose 75+ series) 11/29/2039 HIB [...] age to complete this topic Meningococcal B Vaccine Aged Out No l onger eligible based on patient's age to complete [...]
== END 2024-10-11 11:27 | disposition home or self-care (01) ==
LOC: HO.ENCR 11:04
PROVIDERS: PCP Internal Medicine; Visit Provider Nurse Practitioner Adult Health
DX: E11.42 Type 2 diabetes mellitus with diabetic polyneuropathy (principal); Z79.4 Long term (current) use of insulin
CPT/HCPCS: 99214; G2211

== ENCOUNTER → 2024-10-11 11:03 | Outpatient (BNVA) | payer OTHER, SELFPAY | PROVIDERS: PCP Internal Medicine; Visit Provider Nurse Practitioner Adult Health | DX: E11.42 Type 2 diabetes mellitus with diabetic polyneuropathy (principal); E11.65 Type 2 diabetes mellitus with hyperglycemia; Z96.41 Presence of insulin pump (external) (internal); Z79.4 Long term (current) use of insulin | CPT/HCPCS: 82947; 99212 ==

== ENCOUNTER 2024-10-15 08:20 | Outpatient (REF) | payer OTHER, SELFPAY ==
--- OUTSIDE RECORDS SUMMARY | 2024-10-15 08:28 | XMS_ITS | Data Portability ---
Author Organization [place] - [facility], Allergy Address [address] [address] Care Team Providers Care Health Information Management Director Name Role Phone LUIS M GILLIAM Primary Care Provider [phone] Assessment Encounter Date Assessment Date Assessment LastModified by Organization Details LastModified Time 05/28/2024 05/28/2024 58 year old female with SNHL and TMJ presents for evaluation of ear blockage bilaterally. Otologic exam demonstrates TMs are intact with well-aerated middle ear spaces. EACs without obstruction. Tympanometry is type A bilaterally. Her hearing aids from [employer] [facility] [employer] were sent for adjustment. Recommend she trial the adjusted hearing aids. She will return for audiometric testing if abnormal auditory perception persists. Today we spent some time talking about the fact that cerumen is a natural antibiotic, antifungal, dry boss, and moisturizer of the delicate external auditory [...] Sensorine ural hearing loss of bilateral ears [id number] Active 2018 Sensorine ural hearing loss, bilateral ; Note: Date Diagnosed : 03/28/2019 3:34 PM (H90.3) Not Available [facility] 4 02:33:25 Pain of right temporoma ndibular joint [id number] 170451 Active 2019 Arthralgi a of right temporoma ndibular joint; Note: Date Diagnosed : 0 3:09 PM (M26.621) Not Available [facility] 4 02:33:24 Abrasion of skin of left ear [id number] 529398 Active 2018 Abrasion of left ear, initial encounter ; Note: Date Diagnosed : 03/28/2019 2:58 PM (S00.412A ) Not Available [facility] 4 02:33:25 Bilateral temporoma ndibular joint pain [id number] 419025 Active 2021 Arthralgi a of bilateral temporoma ndibular joint; Note: Date Diagnosed : 08/26/2021 4:41 PM (M26.623) Not Available [facility] 4 02:33:30 Foreign body in left ear [id number] 743677 Active 2018 Foreign body in left ear, initial encounter ; Note: Date Diagnosed : 03/28/2019 2:58 PM (T16.2XXA ) Not Available [facility] 4 02:33:35 Abnormal auditory perceptio n [id number] Active 2023 Leonie wharton MA - [facility] 4 10:43:01 Problem Notes None recorded. Procedures Surgical History Date Name Laterality Status Provider Name and Address Organization Details Recorded Time 05/28/20 24 Tympanometry (94605) completed Leonie Peña MA - [facility] 05/28/2024 10:42:54 Imaging Results Imaging Date Name [...] unkno wn, unspe cifie d;; Not Available [facility] 01:04:04 Medications Name Sig Start Date Stop Date Status Note LastModified by Organization Details LastModified Time cyclobenz aprine 10 mg tablet 2018 active Medicati on ID: [id number] D uration Value: 20 Brand Name: tish [...] mg tablet 05/28 completed Medicati on ID: [id number] D uration Value: 30 Brand Name: atorvast [...] mg tablet 05/28 completed Medicati on ID: [id number] B rand Name: ciproflo xacin HCl Send [...] ear drops 05/28 completed Medicati on ID: [id number] B rand Name: ofloxaci n Send Method: [...] mg tablet 2018 active Medicati on ID: [id number] D uration Value: 30 Brand Name: metoclop [...] injection solution 05/28 completed Medicati on ID: [id number] B rand Name: cyanocob alamin (vitamin B-12) Se nd Method: E-Prescr ibed Sub s Allowed: subs OK Medic ationGen ericName : cyanocob alamin (vitamin B-12) Not Available Not Available Not Available esomepraz ole magnesium 40 mg capsule,d elayed release active Not Available Not Available Not Available omeprazol e 20 mg capsule,d elayed release 2018 active Medicati on ID: [id number] D uration Value: 30 Brand Name: omeprazo [...] completed Not Available Not Available Not Available [place] Saline 0.65 % nasal spray aerosol 05/28 completed Medicati on ID: [id number] B rand Name: [place] Saline S end Method: E-Prescr ibed Sub s Allowed: subs OK Medic ationGen ericName : [place] Saline Not Available Not Available Not Available [...] pen injector 2018 active Medicati on ID: [id number] D uration Value: 28 Brand Name: Skyler [...] SNOMED-CT Code Diagnosis ICD10 Code Diagnosis Note [id number] MERRILL IRIZARRY MD [facility] [address] [address] 05/28/2024 10:13:26 05/28/2024 11:00:06 Abnormal auditory perception [id number] H93.299 Tympanomet ry: Right Ear:{{Type A* Type [...] a hermetic seal}} Bilateral temporomandibular joint pain [id number] M26.623 Sensorineu ral hearing loss of bilateral ears [id number] H90.3 Health Concerns Section Related Observation LastModified by Organization Detai ls LastModified Time None Recorded Concern Status LastModified by Organization Details LastModified Time None Recorded Advance Directives Directive None Recorded Payers Encounter Date Sequence Insurance Name Policy Number Policy Gamino Covered Member ID Gamino Member ID Guarantor Name 05/28/2024 1 [facility] - HEALTH NET PLAN (MEDICAID HMO) JAIDEN Durham [id number] Mellisa Durham Notes Date Note Type Note [...] ear infections. She has hearing aids from [employer] that she recently sent for adjustments. She has not worn them in 2 years. Occasional buzzing sounds bilaterally. MERRILL IRIZARRY MD [address] [place] [address], [phone] - [facility] 05/28/2024 17:20:37 OBGyn Episode No OBEpisode recorded.
--- OUTSIDE RECORDS SUMMARY | 2024-10-15 08:28 | XMS_ITS | Clinical Summary ---
Author Organization [facility] Address [address] [place] [address] Care Team Providers Care Graphics Coordinator Name Role Phone Unavailable Primary Care Provider [...] 2009 Imm-Zoster, Recombinant (1 of 2) 2014 Gmg-XRYIS-20 ( season) 2024 021, 10/07/2020 Imm-Influenza (#1) 2024 04/04/2019, 05/30/2018 Alcohol and Drug Screen 07/03/2024 Depression Annual Screen 07/03/2024 Imm-DTaP/Tdap/Td (2 - Td or Tdap) 01/06/2030 020, 07/08/2015 Cervical Ablation/Cold-Knife Conization Discontinued Cervical Cryotherapy Discontinued Colposcopy Discontinued Endometrial Biopsy Discontinued Excision/Leep Discontinued HPV Genotyping Discontinued Vaginal Pap Discontinued Vulvoscopy Discontinued [facility] [employer] [facility] Member Subscriber Plan / Payer (Ef fective 2020-Present) Name:Mellisa Durham Relation to Subscriber:Self Name:Mellisa Durham Payer ID:[id number] Group ID:[id number] Type:Medicaid Address: [facility] [address] [place] [address]
--- OUTSIDE RECORDS SUMMARY | 2024-10-15 08:28 | XMS_ITS | Clinical Summary ---
[facility] Address [address] [place] [address] Care Team Providers Care Structural Worker Name Role Phone Unavailable Primary Care Provider [...]
[2024-10-15 10:32] LABS: Anion Gap 10 (12-20); Blood Urea Nitrogen 18 mg/dL (9-16); Calcium 9.1 mg/dL (8.4-10.2); Carbon Dioxide 27 mmol/L (22-29); Chloride 105 mmol/L (96-108); Estimated Glomerular Filt Rate > 60; Glucose Random 281 mg/dL (60-115); Potassium 4.2 mmol/L (3.3-5.1); Sodium 138 mmol/L (135-145)
[2024-10-15 11:51] LABS: Creatinine Urine 167.35 mg/dL; Total Protein Urine Random 12 mg/dL (<12)
== END 2024-10-15 08:21 | disposition home or self-care (01) ==
LOC: HO.LAB 08:20
PROVIDERS: Absent Provider Internal Medicine Hypertension Specialist; PCP Internal Medicine; Visit Provider Internal Medicine
DX: R80.9 Proteinuria, unspecified (principal)
CPT/HCPCS: 36415; 80048; 82570; 84156

== ENCOUNTER 2024-10-15 16:47 | Emergency (ER) | payer OTHER, SELFPAY ==
[2024-10-15 17:04] VITALS: PULSE 88; RESP 16; TEMP 36.6; O2SAT 96; BMI 31.1
--- NOTE | 2024-10-15 17:10 | ECG_ITS ---
Test Reason : CHEST DISCOMFORT Blood Pressure : */* mmHG Vent. Rate : 84 BPM Atrial Rate : 84 BPM P-R Int : 160 ms QRS Dur : 84 ms QT Int : 378 ms P-R-T Axes : 58 57 42 degrees QTcB Int : 446 ms Normal sinus rhythm Normal ECG When compared with ECG of 17-Apr-2024 10:16, No significant change was found Referred By: Jonn Neff Electronically Signed By: JAONNE GARCIA MD
--- NOTE | 2024-10-15 17:12 | ED_ITS ---
HPI - General Adult General Chief complaint: Recheck/Abnormal Lab/Rx Stated complaint: High blood sugar Time Seen by Provider: 10/15/24 18:28 Source: patient, old records reviewed and flatwork ironer Mode of arrival: ambulatory Limitations: no limitations History of Present Illness ED Provider: SADE BERRY narrative: 58 yo female with PMH of IDDM currenlty on flex pen and 50 units lantus a night, asthma, HLD, GERD who comes in with c/o BS up to 400s for the past few days. She notes her chest gets tight when it goes up. She is compliant with her medications and her diet. She has no fevers, n/v/d, dyspnea, cough, URI symptoms. She has mild dysuria. She has appointment with territory sales executive tomorrow. She is currently at 200 with her monitoring device. MD complaint: hyperglycemia Onset (ago): day(s) (few) Radiation: non-radiation Severity: moderate Relieving factors: medication Exacerbating factors: eating Associated symptoms: other (dysuria) Treatments prior to arrival: none Related Data Home Medications ?Medication ?Instructions ?Recorded ?Confirmed zolpidem 5 mg tablet 5 mg PO BEDTIME 04/16/20 09/23/24 sertraline 100 mg tablet 100 mg PO DAILY PRN Anxiety 12/14/23 09/23/24 sertraline 50 mg tablet 50 mg PO DAILY PRN Anxiety 12/14/23 09/23/24 fluticasone propionate 230 2 puff inhalation BID 06/17/24 09/23/24 mcg-salmeterol 21 mcg/actuation HFA inhaler (Advair HFA) lorazepam 0.5 mg tablet 0.5 mg PO BID-TID PRN Anxiety 08/26/24 09/23/24 atorvastatin 40 mg tablet 40 mg PO DAILY 08/28/24 09/23/24 fluticasone propionate 50 1 spray intranasal DAILY PRN 08/28/24 09/23/24 mcg/actuation nasal Allergy Symptoms spray,suspension (Flonase Allergy Relief) hydrochlorothiazide 12.5 mg tablet 12.5 mg PO QAM 08/28/24 09/23/24 lidocaine 5 % topical patch 1 patch topical DAILY PRN Pain 08/28/24 09/23/24 solifenacin 5 mg tablet (Vesicare) 5 mg PO DAILY PRN Bladder Spasms 08/28/24 09/23/24 Previous Rx's ?Medication ?Instructions ?Recorded heating pads #1 ea 05/31/22 nebulizer accessories #1 ea 11/30/22 blood-glucose meter (FreeStyle #1 ea 12/21/22 Lite Meter kit) nebulizers (AeroEclipse II #1 ea 03/30/23 Nebulizer) incontinence pad, liner, disp #60 ea 10/07/23 toilet seat elevator #1 ea 10/23/23 cholecalciferol (vitamin D3) 25 25 mcg PO DAILY 90 days #90 tabs 12/25/23 mcg (1,000 unit) tablet (Vitamin D3) pioglitazone 45 mg tablet 45 mg PO DAILY 90 days #90 tabs 12/25/23 montelukast 10 mg tablet 10 mg PO DAILY #90 tabs 01/08/24 lidocaine HCl 2 % mucosal solution 1 appl mucous membrane BID PRN 01/17/24 pain 30 days #100 mL Shower Chair #1 ea 02/05/24 acetone (urine) test (Ketone Urine #50 ea 04/25/24 Test strips) blood sugar diagnostic (FreeStyle #150 ea 04/25/24 Lite Strips) lancets 28 gauge (FreeStyle #100 ea 04/25/24 Lancets) albuterol sulfate 2.5 mg/3 mL 2.5 mg (3 mL) inhalation Q4-6H PRN 04/29/24 (0.083 %) solution for nebulization bronchospasm #75 mL albuterol sulfate 90 mcg/actuation 2 puff inhalation Q4-6H PRN 04/29/24 aerosol inhaler shortness of breath or wheezing #8.5 grams ketorolac 10 mg tablet 10 mg PO TID PRN pain #10 tabs 07/01/24 cyanocobalamin (vitamin B-12) 500 500 mcg sublingual DAILY 90 days 08/07/24 mcg disintegrating #90 tabs tablet,sublingual blood-glucose sensor (FreeStyle #2 ea 08/21/24 Sandra 3 Plus Sensor device) pen needle, diabetic 32 gauge x #200 ea 08/21/24 (BD Sondra 2nd Gen Pen Needle) hydrocodone 5 mg-acetaminophen 325 1 tab PO Q4-6H PRN pain #30 tabs 03/12/25 mg tablet insulin aspart U-100 100 unit/mL See Rx Instructions subcut 09/12/24 (3 mL) subcutaneous pen USEASDIRECTD 90 days #30 mL esomeprazole magnesium 40 mg 40 mg PO DAILY #30 caps 09/23/24 capsule,delayed release (Nexium) famotidine 20 mg tablet (Pepcid) 20 mg PO BEDTIME #90 tabs 09/23/24 sennosides 8.6 mg tablet (Natural 17.2 mg (2 x 8.6 mg) PO BEDTIME 09/23/24 Senna Laxative) constipation #60 tabs simethicone 125 mg capsule 125 mg PO BID-QID PRN abdominal 09/23/24 distention #120 caps Lantus Solostar U-100 Insulin 100 50 unit (0.5 mL) subcut DAILY 90 10/11/24 unit/mL (3 mL) subcutaneous pen days #45 mL (insulin glargine) Allergies Allergy/AdvReac Type Severity Reaction Status Date / Time Penicillins Allergy Mild RASH/DYSPNE Verified 10/15/24 17:05 A canagliflozin [From Invokana] AdvReac Severe uti Verified 10/15/24 17:05 metformin AdvReac Intermediate stomach Verified 10/15/24 17:05 upset mounjaro AdvReac Intermediate Abdominal Uncoded 10/15/24 17:05 Pain trulicity AdvReac Intermediate Abdominal Uncoded 10/15/24 17:05 Pain Review of Systems 2 Review of Systems: Constitutional : No Fever, No Chills, No Fatigue ENT/Mouth : No sore throat, No Rhinorrhea Eyes: No Eye Pain, No Swelling, No Redness Cardiovascular : pos Chest Pain, No SOB, No Dyspnea on Exertion Respiratory : No Cough, No Sputum Gastrointestinal : No Nausea, No Vomiting, No Diarrhea, No abdominal Pain Genitourinary : pos Dysuria, No Urinary Frequency, No Hematuria, Musculoskeletal : No joint pain, No Myalgias, No Joint Swelling Skin : No Skin Lesions, No rash Neuro : No Weakness, No Numbness, No Dizziness, positive Headache All other systems reviewed and are negative [facility] Past Medical History Attestation statement: The following information was validated with the patient. 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 Pernicious anemia Insomnia Depression with anxiety Moderate asthma Essential hypertension Polyarthralgia GERD (gastroesophageal reflux disease) Type 2 diabetes mellitus with other diabetic neurological complication Diabetes Hearing loss Surgical History Hx of bilateral cataract extraction History of esophagogastroduodenoscopy (EGD) H/O colonoscopy History of cholecystectomy History of umbilical hernia repair History of foot surgery History of carpal tunnel release History of surgery on arm History of endometrial ablation History of tubal ligation Family History Family History Mother Breast cancer Paternal Grandmother Breast cancer Brother Colon cancer Family/Other FH: mental illness Mental health disorder Father CAD (coronary artery disease) Social History Social History Household Members: Children Housing: Apartment Are you a primary long term care phlebotomist to a significant other at home: No Do you presently have visiting nurse or other home services: Yes ([employer]K [employer]NAGEMENT) Alcohol intake: never Patient Tobacco Use Status: Never used Tobacco Smoked in Last 30 Days: No e-Cigarette/Vaping Use: Never Used Second Hand Smoke Exposure: No Use of substances other than those prescribed or required for medical reasons: No Advance Directives: No Advance Directives Information Provided: No Do you have a plan to hurt others: No Plan Patient : No service: No Current occupational status: disabled Current occupation: Right hand dominate Cognitive needs: No Hearing needs: No Vision needs: Yes Physical Exam ED Vital Signs: Vital Signs - 24 hr 10/15/24 17:04 10/15/24 19:27 Temperature 97.8 F 97.7 F Pulse Rate 88 89 Respiratory Rate 16 16 Blood Pressure 130/63 Pulse Oximetry 96 97 Oxygen Delivery Method Room Air Room Air BMI result Body Mass Index 31.1 Appearance: Alert. Oriented X3. No acute distress. Eyes: Pupils equal, round and reactive to light. ENT: Pharynx normal. Neck: Normal inspection. Neck supple. CVS: Normal heart rate and rhythm. Pulses normal. Respiratory: No respiratory distress. Breath sounds normal. Abdomen: Soft and nontender. Skin: Skin warm and dry. Normal skin color. Normal skin turgor. Extremities: No lower extremity edema. No calf ttp Neuro: Oriented X 3. No motor deficit. No sensory deficit. CN2-12 intact Course Course Course Narrative: RmE: 58-year-old female presents to ED for hyperglycemia and also check discomfort. Patient states glucose between 304 0s. Patient has appointment territory sales executive tomorrow for due to her stating having chest discomfort she was referred to the ED. current blood glucose 247. EKG labs ordered. Medical Decision Making Medical Decision Making [facility] Narrative: 58 yo female with PMH of IDDM currenlty on flex pen and 50 units lantus a night, asthma, HLD, GERD who c/o elevated BS for a few days on exam no signs of DKA and BS 200 no emergent correction. Atypical chest pain for a few days with no associated nausea, dyspnea - at this time labs, EKG, trop x 1, UA. If work up negative will DC with outpatient follow up Differential Diagnosis Differential Diagnoses: The differential diagnosis associated with the presentation includes UTI, elevated bs, atypical chest pain Admission/Observation Consideration of admission/observation: Escalation of care including admission/observation considered BS 200 work up reassuring has endo appointment tomorrow Lab Data [facility] Lab Attestation statement: I reviewed the patient's lab results. 10/15/24 17:23 10/15/24 17:23 Labs: Lab Results 10/15/24 10/15/24 10/15/24 Range/Units 17:23 18:44 18:50 WBC 6.8 (4.8-10.8) X10*3/uL RBC 4.81 (4.20-5.50) X10*6/uL Hgb 13.5 (12.0-16.0) g/dl Hct 41.8 (37.0-47.0) % MCV 86.9 (80.0-98.0) fL MCH 28.1 (27.0-33.0) pg MCHC 32.3 (31.0-35.0) g/dl RDW 12.6 (11.0-16.0) % Plt Count 117 L (160-400) X10*3/uL MPV 12.0 (9.4-12.3) fL Immature Gran % (Auto) 0.1 (0.0-0.4) % Neut % (Auto) 62.7 (45-73) % Lymph % (Auto) 27.8 (20-40) % [place] % (Auto) 7.8 (2-11) % Eos % (Auto) 1.0 (0-4) % Baso % (Auto) 0.6 (0-2) % Lymph # (Auto) 1.9 (1.2-4.9) X10*3/uL [place] # (Auto) 0.5 (0.1-1.2) X10*3/uL Eos # (Auto) 0.1 (0.0-0.4) X10*3/uL Baso # (Auto) 0.0 (0.0-0.2) X10*3/uL Abs Immat Gran (auto) 0.01 (0.00-0.03) X10*3/uL Absolute Neuts (auto) 4.3 (2.0-8.3) x10*3/uL Absolute Nucleated RBC 0.000 (0.0-0.012) X10*3/uL Nucleated RBC % (auto) 0.0 (0.0-0.2) /100WBC PT 11.8 (10.9-12.4) SEC INR 1.0 (0.9-1.1) APTT 30.3 (26.0-36.8) SEC Sodium 141 (135-145) mmol/L Potassium 3.9 (3.3-5.1) mmol/L Chloride 106 (96-108) mmol/L Carbon Dioxide 29 (22-29) mmol/L Anion Gap 10 L (12-20) BUN 16 (9-16) mg/dL Creatinine 0.81 (0.5-1.4) mg/dL Estim Creat Clear Calc 71.8 Estimated GFR > 60 POC Glucose 179 H (60-115) mg/dL Random Glucose 232 H (60-115) mg/dL Calcium 9.5 (8.4-10.2) mg/dL Total Bilirubin 0.4 (0.0-1.0) mg/dL AST 38 H (5-31) U/L ALT 40 H (0-31) U/L Alkaline Phosphatase 67 (39-117) U/L Troponin I High Sens < 2.7 (<3.5-17.0) ng/L Total Protein 6.8 (6.5-8.0) g/dL Albumin 3.9 (3.5-5.0) g/dL Beta-Hydroxybutyrate 0.08 (0.02-0.27) mmol/L Urine Color Yellow Urine Appearance Clear Urine pH 8.0 (5.0-9.0) Ur Specific [place] 1.010 (1.005-1.025) Urine Protein Negative (Neg-Trace) mg/dL Urine Glucose (UA) Negative (Negative) mg/dL Urine Ketones Negative (Negative) mg/dL Urine Blood Negative (Negative) Urine Nitrite Negative (Negative) Ur Leukocyte Esterase Negative (Negative) Influenza Type A (PCR) NEGATIVE (Negative) Influenza Type B (PCR) NEGATIVE (Negative) RSV RNA Qual (PCR) NEGATIVE (Negative) SARS-CoV-2 RNA (RT-PCR) NEGATIVE (Negative) Independent Interpretation I performed an independent interpretation of an: EKG Interpretation: Rate: 84 Rhythm: NSR [place]: normal Normal P waves. Normal [place]. Normal QRS complex. ST T wave : normal no CHE qTC: 446 prior studies: no acute ischemia The study has been interpreted contemporaneously by me. . External Record Review External record reviewed: Outpatient record Prescription Management I considered prescription management with: Other Discharge Plan Discharge Clinical Impression: Acute hyperglycemia, Atypical chest pain Patient Disposition: Home, Self-Care Instructions: Chest Pain (ED), Diabetic Hyperglycemia (ED) Additional Instructions: labs, kidney function, urine test normal ekg reassuring please continue to monitor your blood sugar and follow up with territory sales executive tomorrow. Prescriptions: No Action (DME) heating pads Pad See Rx Instructions .Route Qty: 1 0RF Rx Instructions: As directed (DME) blood-glucose meter [FreeStyle Lite Meter] Kit See Rx Instructions .ROUTE .MEDSUPPLY Qty: 1 0RF Rx Instructions: use as directed to test blood sugar 4x per day (DME) nebulizers [AeroEclipse II Nebulizer] Misc See Rx Instructions .Route Qty: 1 0RF Rx Instructions: As directed (DME) incontinence pad, liner, disp Pad See Rx Instructions .Route Qty: 60 11RF Rx Instructions: Use 1 pad twice a day cholecalciferol (vitamin D3) [Vitamin D3] 25 mcg (1,000 unit) tablet 25 mcg PO DAILY 90 Days Qty: 90 3RF pioglitazone 45 mg tablet 45 mg PO DAILY 90 Days Qty: 90 2RF montelukast 10 mg tablet 10 mg PO DAILY Qty: 90 3RF (DME) Shower Chair [facility] See Rx Instructions .Route Qty: 1 0RF Rx Instructions: As directed albuterol sulfate 90 mcg/actuation HFA aerosol inhaler 2 puff inhalation Q4-6H PRN (Reason: shortness of breath or wheezing) Qty: 8.5 0RF albuterol sulfate 2.5 mg /3 mL (0.083 %) solution for nebulization 2.5 mg inhalation Q4-6H PRN (Reason: bronchospasm) Qty: 75 0RF cyanocobalamin (vitamin B-12) 500 mcg tablet,disintegrating 500 mcg sublingual DAILY 90 Days Qty: 90 1RF insulin aspart U-100 100 unit/mL (3 mL) insulin pen See Rx Instructions subcut USEASDIRECTD 90 Days Qty: 30 4RF Rx Instructions: 8-10 units tid before meals subcutaneously use as directed; esomeprazole magnesium [Nexium] 40 mg capsule,delayed release(DR/EC) 40 mg PO DAILY Qty: 30 5RF famotidine [Pepcid] 20 mg tablet 20 mg PO BEDTIME Qty: 90 3RF sennosides [Natural Senna Laxative] 8.6 mg tablet 17.2 mg PO BEDTIME Qty: 60 3RF simethicone 125 mg capsule 125 mg PO BID-QID PRN (Reason: abdominal distention) Qty: 120 3RF ketorolac 10 mg tablet 10 mg PO TID PRN (Reason: pain) Qty: 10 0RF Rx Instructions: Do not use this medication with any other NSAIDs hydrochlorothiazide 12.5 mg tablet 12.5 mg PO QAM atorvastatin 40 mg tablet 40 mg PO DAILY lidocaine 5 % adhesive patch,medicated 1 patch topical DAILY PRN (Reason: Pain) Rx Instructions: leave on most painful area for up to 12 hrs fluticasone propionate [Flonase Allergy Relief] 50 mcg/actuation spray,suspension 1 spray intranasal DAILY PRN (Reason: Allergy Symptoms) Rx Instructions: administer into each nostril solifenacin [Vesicare] 5 mg tablet 5 mg PO DAILY PRN (Reason: Bladder Spasms) hydrocodone-acetaminophen 5-325 mg tablet 1 tab PO Q4-6H PRN (Reason: pain) Qty: 30 0RF Rx Instructions: Partial Fill upon patient request. zolpidem 5 mg tablet 5 mg PO BEDTIME sertraline 100 mg tablet 100 mg PO DAILY PRN (Reason: Anxiety) (DME) toilet seat elevator See Rx Instructions .Route .MEDSUPPLY Qty: 1 0RF Rx Instructions: As directed (DME) nebulizer accessories Misc See Rx Instructions .Route Qty: 1 0RF Rx Instructions: NEBULIZER FACE MASK ADULT, USE DIRECTED lidocaine HCl 2 % solution 1 appl mucous membrane BID PRN (Reason: pain) 30 Days Qty: 100 0RF (DME) Ketone Urine Test Strip See Rx Instructions .Route Qty: 50 5RF Rx Instructions: As directed (DME) FreeStyle Lite Strips Strip See Rx Instructions .ROUTE .MEDSUPPLY Qty: 150 11RF Rx Instructions: As directed four times a day (DME) lancets [FreeStyle Lancets] 28 gauge misc See Rx Instructions .ROUTE .MEDSUPPLY Qty: 100 11RF Rx Instructions: every 4 hours prn dispense as 32 gauge if avil sertraline 50 mg tablet 50 mg PO DAILY PRN (Reason: Anxiety) fluticasone propion-salmeterol [Advair HFA] 230-21 mcg/actuation HFA aerosol inhaler 2 puff inhalation BID lorazepam 0.5 mg tablet 0.5 mg PO BID-TID PRN (Reason: Anxiety) (DME) FreeStyle Sandra 3 Plus Sensor Device See Rx Instructions .ROUTE .MEDSUPPLY Qty: 2 11RF Rx Instructions: continuous sensor reapply every 15 days (DME) pen needle, diabetic [BD Sondra 2nd Gen Pen Needle] 32 gauge x 5/32 needle See Rx Instructions .ROUTE .MEDSUPPLY Qty: 200 6RF Rx Instructions: 4 times daily insulin glargine [Lantus Solostar U-100 Insulin] 100 unit/mL (3 mL) insulin pen 50 unit subcut DAILY 90 Days Qty: 45 3RF Interventions: ED Discharge Assessment Last Done: 10/15/24 19:27 Discharge Date/Time: 10/15/24 19:28 Print Language: Khmer
[2024-10-15 17:30] LABS: MANUAL DIFF FLAG NO
[2024-10-15 17:34] LABS: Basophils Percent Auto 0.6 % (0-2); Eosinophils Absolute Auto 0.1 X10*3/uL (0.0-0.4); Hematocrit 41.8 % (37.0-47.0); Hemoglobin 13.5 g/dl (12.0-16.0); Imm Gran Abs Auto 0.01 X10*3/uL (0.00-0.03); Imm Gran Pct Auto 0.1 % (0.0-0.4); Lymphocytes Absolute Auto 1.9 X10*3/uL (1.2-4.9); Lymphocytes Percent Auto 27.8 % (20-40); Mean Corpuscular HGB Conc 32.3 g/dl (31.0-35.0); Mean Corpuscular Hemoglobin 28.1 pg (27.0-33.0); Mean Corpuscular Volume 86.9 fL (80.0-98.0); Monocytes Absolute Auto 0.5 X10*3/uL (0.1-1.2); Monocytes Percent Auto 7.8 % (2-11); Neutrophils Absolute Auto 4.3 x10*3/uL (2.0-8.3); Neutrophils Percent Auto 62.7 % (45-73); Platelet Count 117 X10*3/uL (160-400); Red Blood Count 4.81 X10*6/uL (4.20-5.50); Red Cell Distribution Width 12.6 % (11.0-16.0); White Blood Count 6.8 X10*3/uL (4.8-10.8)
[2024-10-15 17:39] LABS: Prothrombin Time 11.8 SEC (10.9-12.4)
[2024-10-15 17:42] LABS: Partial Thromboplastin Time 30.3 SEC (26.0-36.8)
[2024-10-15 17:44] LABS: Beta-Hydroxybutyrate 0.08 mmol/L (0.02-0.27)
[2024-10-15 17:46] LABS: Alanine Aminotransferase 40 U/L (0-31); Albumin Level 3.9 g/dL (3.5-5.0); Alkaline Phosphatase 67 U/L (39-117); Anion Gap 10 (12-20); Aspartate Amino Transferase 38 U/L (5-31); Bilirubin Total 0.4 mg/dL (0.0-1.0); Blood Urea Nitrogen 16 mg/dL (9-16); Calcium 9.5 mg/dL (8.4-10.2); Carbon Dioxide 29 mmol/L (22-29); Chloride 106 mmol/L (96-108); Creatinine Clr Calc Pharmacy 71.8; Estimated Glomerular Filt Rate > 60; Glucose Random 232 mg/dL (60-115); Potassium 3.9 mmol/L (3.3-5.1); Sodium 141 mmol/L (135-145); Total Protein 6.8 g/dL (6.5-8.0)
[2024-10-15 17:55] LABS: Troponin-I High Sensitivity < 2.7 ng/L (<3.5-17.0)
[2024-10-15 18:06] LABS: Influenza A PCR NEGATIVE (Negative); Influenza B PCR NEGATIVE (Negative); Resp Syncy Virus RNA Qual PCR NEGATIVE (Negative); SARS COV2 PCR INHOUSE NEGATIVE (Negative)
[2024-10-15 18:54] LABS: Glucose, Whole Blood 179 mg/dL (60-115)
[2024-10-15 18:55] LABS: Appearance Urine Clear; Color Urine Yellow; Glucose Urine UA Negative (Negative); Leukocyte Esterase Urine Negative (Negative); Nitrite Urine Negative (Negative); Urine Blood Negative (Negative); Urine Ketones Negative (Negative); Urine Protein Negative (Neg-Trace)
--- OUTSIDE RECORDS SUMMARY | 2024-10-15 19:09 | XMS_ITS | Clinical Summary ---
Author Organization [facility] Address [address] [place] [address] Care Team Providers Care License Inspector Name Role Phone Unavailable Primary Care Provider [...]
--- OUTSIDE RECORDS SUMMARY | 2024-10-15 19:09 | XMS_ITS | Clinical Summary ---
Author Organization [facility] Address [address] [place] [address] Care Team Providers Care Certified Medical Technician Name Role Phone Unavailable Primary Care Provider [...] 2009 Imm-Zoster, Recombinant (1 of 2) 2014 [id number] ( season) 2024 021, 10/07/2020 Imm-Influenza (#1) 2024 04/04/2019, 05/30/2018 Alcohol and Drug Screen 07/03/2024 Depression Annual Screen 07/03/2024 Imm-DTaP/Tdap/Td (2 - Td or Tdap) 01/06/2030 020, 07/08/2015 Cervical Ablation/Cold-Knife Conization Discontinued Cervical Cryotherapy Discontinued Colposcopy Discontinued Endometrial Biopsy Discontinued Excision/Leep Discontinued HPV Genotyping Discontinued Vaginal Pap Discontinued Vulvoscopy Discontinued [facility] Member Subscriber Plan / Payer (Ef fective 2020-Present) Name:Mellisa Durham Relation to Subscriber:Self Name:Mellisa Durham Payer ID:[id number] Group ID:[id number] Type:Medicaid Address: [facility] [address] [place] [address]
--- NOTE | 2024-10-15 19:25 | PC.NURSE ---
states she feels slightly fatigued but chest discomfort resolved on d/c
[2024-10-15 19:27] VITALS: BP 130/63; PULSE 89; RESP 16; TEMP 36.5; O2SAT 97
[2024-10-16 09:42] LABS: Glucose, Whole Blood 246 mg/dL (60-115)
== END 2024-10-15 19:28 | disposition home or self-care (01) ==
PROVIDERS: Physician Assistant; Emergency Provider Emergency Medicine; PCP Internal Medicine
DX: E11.65 Type 2 diabetes mellitus with hyperglycemia (principal); R07.89 Other chest pain; E78.5 Hyperlipidemia, unspecified; K21.9 Gastro-esophageal reflux disease without esophagitis; J45.909 Unspecified asthma, uncomplicated; Z79.4 Long term (current) use of insulin
CPT/HCPCS: 0241U; 36415; 80053; 81003; 82010; 82947; 84484; 85025; 85610; 85730; 93005; 99283; 99284

== ENCOUNTER → 2024-10-15 17:10 | Outpatient (BNV) | payer OTHER, SELFPAY | PROVIDERS: Emergency Provider Emergency Medicine; PCP Internal Medicine; Visit Provider Internal Medicine Cardiovascular Disease | DX: R07.89 Other chest pain (principal) | CPT/HCPCS: 93010 ==

== ENCOUNTER 2024-10-16 13:34 | Outpatient (AMB) | payer OTHER, SELFPAY ==
--- NOTE | 2024-10-16 13:35 | A.OFFVIS_ITS ---
Vital Signs 3 10/16/24 13:36 Height 5 ft 3 in Weight 171 lb 11.841 oz BMI 30.4 BP 112/62 Blood Pressure Location Lt brachial Position Sitting Pulse 78 Pulse Source Pulse Oximeter Pulse Oximetry (%) 90 L Oxygen Delivery Method Room Air Intake Visit Reasons: DM/ED f/u Intake Note: Patient present today for Type 2 Diabetes Mellitus Last Diabetic eye exam: 07/2024 Last Podiatry Visit: Doesn't have one Random Glucose: 237 mg/dl HgA1C: 8.5% Blower Installer Required: Yes Blower Installer Language: Lifeguard Services: Blower Installer Present Blower Installer Name: Misty Information Interpreted: non-clinical & clinical Accompanied by: Self / Same As Patient Allergies Penicillins Allergy (Mild, Verified 10/16/24 13:42) RASH/DYSPNEA canagliflozin [From Invokana] Adverse Reaction (Severe, Verified 10/16/24 13:42) uti metformin Adverse Reaction (Intermediate, Verified 10/16/24 13:42) stomach upset mounjaro Adverse Reaction (Intermediate, Uncoded 10/16/24 13:42) Abdominal Pain trulicity Adverse Reaction (Intermediate, Uncoded 10/16/24 13:42) Abdominal Pain HPI Comments Details: Patient is a 58 year old female with DM type 2 diagnosed around 2004 who presents for management of diabetes. She was last seen 10/11/24 by Guera Thomas APRN 07/30/24 A1C of 8% but had been on prednisone for 5 days prior. 04/25/24 7.4% 07/30/24 8% had been on prednisone for 5 days prior to previous visit. Pre pump she was 8.3%. She had been having difficulty pairing her sensor to her pump and has been advised by her surgeon that she should not be using a pump for 3 months after surgery to allow for healing of the abdomen. Hernia Surgery was done September 11 2024 and she has no post op issues.She was having difficulty as the pump is in [place] and she does not read South Korean and was not a good candidate for this pump. She was switched from a Dexcom to a freestyle Sandra Aug 27 and pump stopped . Previous intolerance to medications: Trulicity and Mounjaro due to abdominal pain. Was not in Invokana which was stopped secondary to UTI. Islet pump stopped due to difficulty pairing sensor and inability to operate secondary to language barrier. She was seen in ED 10/15/24 due to elevated BG readings in 400s , this appt was made for ED fup ED workup was unremarkable except high blood sugars in the 200s Currently denies any nausea , vomiting, does endorse fatigue Current Medication: pioglitazone 45 mg Lantus 50 units As part 16 units pre meal Freestyle Sandra 3 data downloaded from October 02 to 10/15/2024 G DE 9.5% Variability 21.4% CGM active 98% Within target range 8% High 36% Very high 56% Low 0% Very low 0% Interpretation [readings consistently high with no lows ] Random Glucose: 237 mg/dl currently Hypoglycemia: none recent Hyperglycemia: + Ophthalmology evaluation: 10/2023 -cataract surgery in 01/2024 No nephropathy: 04/13/2024 microalbumin 11.0 eGFR>60 Neuropathy: no numbness, tingling, pain or cramping in the extremities saw podiatry two years ago Not on statin last LDL 78 04/13/2024 Seen by Cardiology 2024 Stress echo negative for ischemia at achieved workload and HR 06/25 Normal LV ejection fraction of 60 65% with impaired relaxation filling pattern Getting evaluted with urology for hydropnephrosis Exercise: housecleaning has been walking 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 - 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 education: currently Physical exam General: sitting comfortably in no acute distress HEENT: normocephalic/atraumatic Neck: supple, symmetrical, Cardiac: normal heart sounds Pulm: normal breath sounds B/L, no added breath sounds Abd: not distended, no tenderness Extremities: Mild edema noted bilaterally Neuro: AAO x3, Speech: normal, no facial droop, moving all 4 extremities Foot sensation : intact sensation to monofilament, intact pulses Laboratory Tests 04/13/24 04/13/24 04/17/24 09:05 09:14 09:10 Sodium Potassium Creatinine Estimated GFR POC Glucose Random Glucose Hgb A1c (Clinic) 7.4 H AST ALT Albumin Triglycerides 133 Cholesterol 145 LDL Cholesterol, Calc 78 HDL Cholesterol 41 Vitamin B12 471 Beta-Hydroxybutyrate Urine Creatinine 77.70 Urine Microalbumin 11.0 Microalb/Creat Ratio 14.1 07/30/24 10/15/24 10/15/24 11:11 17:00 17:23 Sodium 141 Potassium 3.9 Creatinine 0.81 Estimated GFR > 60 POC Glucose 246 H Random Glucose 232 H Hgb A1c (Clinic) 8.0 H AST 38 H ALT 40 H Albumin 3.9 Triglycerides Cholesterol LDL Cholesterol, Calc HDL Cholesterol Vitamin B12 Beta-Hydroxybutyrate 0.08 Urine Creatinine Urine Microalbumin Microalb/Creat Ratio 10/15/24 18:50 Sodium Potassium Creatinine Estimated GFR POC Glucose 179 H Random Glucose Hgb A1c (Clinic) AST ALT Albumin Triglycerides Cholesterol LDL Cholesterol, Calc HDL Cholesterol Vitamin B12 Beta-Hydroxybutyrate Urine Creatinine Urine Microalbumin Microalb/Creat Ratio [facility] Medical History Ear discomfort Palpitations Overweight Type 2 diabetes mellitus with diabetic polyneuropathy B12 deficiency DM2 (diabetes mellitus, type 2) Tubular adenoma Moderate recurrent major depression Dyslipidemia Umbilical hernia Edema Arthritis Ear pain care home (current) use of insulin Pernicious anemia Insomnia Depression with anxiety Moderate asthma Essential hypertension Polyarthralgia GERD (gastroesophageal reflux disease) Type 2 diabetes mellitus with other diabetic neurological complication Diabetes Hearing loss Surgical History Hx of bilateral cataract extraction History of esophagogastroduodenoscopy (EGD) H/O colonoscopy History of cholecystectomy History of umbilical hernia repair History of foot surgery History of carpal tunnel release History of surgery on arm History of endometrial ablation History of tubal ligation Family History Mother Breast cancer Paternal Grandmother Breast cancer Brother Colon cancer Family/Other FH: mental illness Mental health disorder Father CAD (coronary artery disease) Social History Household Members: Children Housing: Apartment Are you a primary child caregiver to a significant other at home: No Do you presently have visiting nurse or other home services: Yes (MECHANICAL DESIGN TECHNICIAN) Alcohol intake: never Patient Tobacco Use Status: Never used Tobacco e-Cigarette/Vaping Use: Never Used Second Hand Smoke Exposure: No service: No Current occupational status: disabled Current occupation: Right hand dominate Cognitive needs: No Hearing needs: No Vision needs: Yes Female Reproductive History Menstrual Age of Menarche: 11 Physical Exam Vital Signs: Last Vital Signs Pulse 78 10/16/24 13:36 BP 112/62 10/16/24 13:36 Pulse Ox 90 L 10/16/24 13:36 Oxygen Delivery Method Room Air 10/16/24 13:36 BMI result Body Mass Index 30.4 Office Procedures Glucose Monitoring Details Details: see [facility] [address] - Glucose monitoring, continuous-physician I&R Procedure code (CPT) selection complete Results AMB Hemoglobin A1c 2 AMB Hemoglobin A1c 8.5 % Last Edit by NACHO Cruz on 10/16/24 13:59 Results Reviewed Results Reviewed: Laboratory Last Values Glucose (Clinic) 237 mg/dL (60-115) H 10/16/24 13:44 Assessment & Plan Assessment & Plan (1) Type 2 diabetes mellitus with diabetic polyneuropathy: Code(s): E11.42 - Type 2 diabetes mellitus with diabetic polyneuropathy Category: Medical Qualifiers: Diabetes mellitus assisted insulin use: with assisted use Qualified Code(s): E11.42 - Type 2 diabetes mellitus with diabetic polyneuropathy; Z79.4 - care home (current) use of insulin Plan: 58-year-old with type 2 diabetes mellitus who was on an islet pump until August 2024 which was stopped due to inability to use pump due to language barrier, along with Invokana which was stopped secondary to UTI, now on basal bolus regimen and takes pioglitazone. She also has GI intolerance to GLp-1 agonists with A1c of 8.5% point of care today 10/16/2024 which is up from a recent A1c of 8% 07/30/24. We will up titrate her insulin. She is already on max dose of pioglitazone. Plan: -continue pioglitazone 45 mg daily -increase insulin as New dosing: Lantus 55 units Aspart 20 units tid with meals RTC 6 weeks for review of sensor and additional titration Financial Institution Treasurer referral placed Advised to walk 30 minutes 5 days a week The patient had an opportunity to ask questions regarding treatment plan. The patient expressed understanding and agreement with the above treatment plan. The patient is aware they should contact our office by phone for worsening glucose readings or for any low blood sugars which may warrant a change in diabetes medication. Compliance is encouraged with medications and any followup testing/consults which may have been ordered. Plan I spent 30 minutes in reviewing the record, seeing the patient and documenting in the medical record. Orders: Orders 2 AMB Glucose Monitoring Today E11.42 - Type 2 diabetes mellitus with diabetic polyneuropathy, Z79.4 - terminal worker (current) use of insulin AMB Hemoglobin A1c Today E11.42 - Type 2 diabetes mellitus with diabetic polyneuropathy, Z13.9 - Encounter for screening, unspecified, Z79.4 - care home (current) use of insulin Referrals 2 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 Nutrition Referral E11.42 - Type 2 diabetes mellitus with diabetic polyneuropathy, Z79.4 - care home (current) use of insulin Medications: Changed 2 From insulin aspart U-100 8-10 units tid before meals subcutaneously use as directed; 90 days 30 mL 4RF To insulin aspart U-100 20 units (0.2 mL) subcut TID 90 days 54 mL 4RF From Lantus Solostar U-100 Insulin (insulin glargine) 50 units (0.5 mL) subcut DAILY 90 days 45 mL 3RF NS E11.65 - Type 2 diabetes mellitus with hyperglycemia To Lantus Solostar U-100 Insulin (insulin glargine) 55 units (0.55 mL) subcut DAILY 90 days 49.5 mL 3RF NS E11.65 - Type 2 diabetes mellitus with hyperglycemia Patient Instructions: Increase lantus to 55 units daily Increase humalog to 20 units three times a day Continue pioglitazone Walk 30 mins 5 days a week Rule of 15 Treatment for Hypoglycemia (Low blood sugar) If your blood glucose is low (70 and below)*, follow the steps below to treat: Eat or drink something from the list below equal to 15 grams of carbohydrate (carb). Rest for 15 minutes Re-check your blood glucose. If it is still low, (below 70), repeat step 1 above. ? If your next meal is more than an hour away, you will need to eat one carbohydrate choice as a snack to keep your blood glucose from going low again. ?If you can't figure out why you have low blood glucose, call your healthcare provider, as your medicine may need to be adjusted. ?Always carry something with you to treat an insulin reaction. Use food from the list below. ? Foods equal to One Carbohydrate Choice (15 grams of carbohydrate): 3 Glucose ?tablets or 4 Dextrose tablets 4 ounces of fruit juice 5-6 ounces (about 1/2 can) of regular soda such as Coke or Pepsi ? 7-8 gummy or regular Life Savers ? 1 Tbsp. of sugar or jelly NOTE: If your blood sugar is less than 50, double the portion above for a total of 30 gm. ?Carbohydrate. ? Follow meal plan of 45-60 g of consistent carbohydrates at 3 meals each day and 15 g of carbohydrate at 1-2 snacks each day. Aumente la dosis de Lantus a 55 unidades diarias. Aumente la dosis de Humalog a 20 unidades jaymie veces al d?a. Contin?e con pioglitazona. Camine 30 minutos, 5 d?as a la semana. Tratamiento de la Angeli del 15 para la hipoglucemia (nivel bajo de az?car en kat) Si rivero nivel de glucosa en kat es bajo (70 o menos)*, siga los pasos a continuaci?n para tratarlo: Coma o ander algo de la lista a continuaci?n equivalente a 15 gramos de carbohidratos. Descanse 15 minutos. Vuelva a medir rivero nivel de glucosa en kat. Si sigue bajo (menos de 70), repita el paso 1 anterior. Si rivero pr?xima comida es en m?s de shelia hora, deber? consumir un carbohidrato josue refrigerio para evitar que rivero nivel de glucosa en kat baje de nuevo. Si no puede determinar la causa de rivero nivel bajo de glucosa en kat, llame a rivero profesional de la edmund, ya que podr?a ser necesario ajustar rivero medicamento. Lleve siempre consigo algo para tratar shelia reacci?n a la insulina. Use los alimentos de la lista a continuaci?n. Alimentos equivalentes a shelia opci?n de carbohidratos (15 gramos): 3 tabletas de glucosa o 4 tabletas de dextrosa 113 g de jugo de fruta 140 g (aproximadamente 1/2 jacoby) de refresco regular josue Coca-Cola o Pepsi 7-8 gomitas o Life Savers regulares 1 cucharada de az?car o mermelada NOTA: Si rivero nivel de az?car en kat es inferior a 50, duplique la porci?n anterior para un total de 30 g de carbohidratos. Siga un plan de alimentaci?n de 45 a 60 g de carbohidratos consistentes en 3 comidas al d?a y 15 g de carbohidratos en 1 o 2 refrigerios al d?a. Coding Level of Care Code Est Pt Level 4 (33784) Diagnoses Type 2 diabetes mellitus with diabetic polyneuropathy, with long-term current use of insulin E11.42; Z79.4 Diabetes mellitus long distance operator insulin use: with assisted use CPT Codes Details - CPT: 42816 - Glucose monitoring, continuous-physician I&R ([id number])
[2024-10-16 13:36] VITALS: BP 112/62; PULSE 78; O2SAT 90; BMI 30.4
[2024-10-16 13:48] LABS: Glucose, Whole Blood 237 mg/dL (60-115)
--- OUTSIDE RECORDS SUMMARY | 2024-10-16 16:09 | XMS_ITS | Clinical Summary ---
Author Organization [facility] Address [address] [place] [address] Care Team Providers Care Promotional Demonstrator Name Role Phone Unavailable Primary Care Provider [...] 2009 Imm-Zoster, Recombinant (1 of 2) 2014 [id number] ( season) 2024 021, 10/07/2020 Imm-Influenza (#1) 2024 04/04/2019, 05/30/2018 Alcohol and Drug Screen 07/03/2024 Depression Annual Screen 07/03/2024 Imm-DTaP/Tdap/Td (2 - Td or Tdap) 01/06/2030 020, 07/08/2015 Cervical Ablation/Cold-Knife Conization Discontinued Cervical Cryotherapy Discontinued Colposcopy Discontinued Endometrial Biopsy Discontinued Excision/Leep Discontinued HPV Genotyping Discontinued Vaginal Pap Discontinued Vulvoscopy Discontinued [facility] [employer] [facility] Member Subscriber Plan / Payer (Ef fective 2020-Present) Name:Mellisa Durham Relation to Subscriber:Self Name:Mellisa Durham Payer ID:[id number] Group ID:[id number] Type:Medicaid Address: [facility] [address] [place] [address]
--- OUTSIDE RECORDS SUMMARY | 2024-10-16 16:09 | XMS_ITS | Clinical Summary ---
[facility] Address [address] [place] [address] Care Team Providers Care General Assignment Reporter Name Role Phone Unavailable Primary Care Provider [...]
--- OUTSIDE RECORDS SUMMARY | 2024-10-16 16:09 | XMS_ITS | Data Portability ---
Author Organization [place] - [facility], Allergy Address [address] [address] Care Team Providers Care Network Design Architect Name Role Phone LUIS M GILLIAM Primary Care Provider [phone] Assessment Encounter Date Assessment Date Assessment LastModified [...] that cerumen is a natural antibiotic, antifungal, hydrogenation still operator, and moisturizer of the delicate external auditory [...] Sensorine ural hearing loss of bilateral ears [id number] Active 2018 Sensorine ural hearing loss, bilateral ; Note: Date Diagnosed : 03/28/2019 3:34 PM (H90.3) Not Available [facility] 4 02:33:25 Pain of right temporoma ndibular joint [id number] 796914 Active 2019 Arthralgi a of right temporoma ndibular joint; Note: Date Diagnosed : 0 3:09 PM (M26.621) Not Available [facility] 4 02:33:24 Abrasion of skin of left ear 35997289511 539274 Active 2018 Abrasion of left ear, initial encounter ; Note: Date Diagnosed : 03/28/2019 2:58 PM (S00.412A ) Not Available [facility] 4 02:33:25 Bilateral temporoma ndibular joint pain 86943615075 067989 Active 2021 Arthralgi a of bilateral temporoma ndibular joint; Note: Date Diagnosed : 08/26/2021 4:41 PM (M26.623) Not Available [facility] 4 02:33:30 Foreign body in left ear 59516378242 780789 Active 2018 Foreign body in left ear, initial encounter ; Note: Date Diagnosed : 03/28/2019 2:58 PM (T16.2XXA ) Not Available [facility] 4 02:33:35 Abnormal auditory perceptio n 15023798 Active 2023 Leonie wharton [place] - [facility] 4 10:43:01 Problem Notes None recorded. Procedures Surgical History Date Name Laterality Status Provider Name and Address Organization Details Recorded Time 05/28/20 24 Tympanometry (63021) completed Leonie Peña [place] - [facility] 05/28/2024 10:42:54 Imaging Results Imaging Date [...] unkno wn, unspe cifie d;; Not Available [facility] Medications Name Sig Start Date Stop Date Status Note LastModified by Organization Details LastModified Time cyclobenz aprine 10 mg tablet 2018 active Medicati on ID: [id number] D uration Value: 20 Brand Name: tish [...] mg tablet 05/28 completed Medicati on ID: [id number] D uration Value: 30 Brand Name: atorvast [...] mg tablet 05/28 completed Medicati on ID: [id number] B rand Name: ciproflo xacin HCl Send [...] ear drops 05/28 completed Medicati on ID: [id number] B rand Name: ofloxaci n Send Method: [...] mg tablet 2018 active Medicati on ID: [id number] D uration Value: 30 Brand Name: metoclop [...] injection solution 05/28 completed Medicati on ID: [id number] B rand Name: cyanocob alamin (vitamin B-12) Se nd Method: E-Prescr ibed Sub s Allowed: subs [place] Medic ationGen ericName : cyanocob alamin (vitamin B-12) Not Available Not Available Not Available esomepraz ole magnesium 40 mg capsule,d elayed release active Not Available Not Available Not Available omeprazol e 20 mg capsule,d elayed release 2018 active Medicati on ID: [id number] D uration Value: 30 Brand Name: omeprazo [...] completed Not Available Not Available Not Available Torrance Saline 0.65 % nasal spray aerosol 05/28 completed Medicati on ID: [id number] B rand Name: Torrance Saline S end Method: E-Prescr ibed Sub s Allowed: subs OK Medic ationGen ericName : Torrance Saline Not Available Not Available Not Available [...] pen injector 2018 active Medicati on ID: [id number] D uration Value: 28 Brand Name: Skyler [...] SNOMED-CT Code Diagnosis ICD10 Code Diagnosis Note [id number] MERRILL IRIZARRY MD [facility] [address] [address] 05/28/2024 10:13:26 05/28/2024 11:00:06 Abnormal auditory perception [id number] H93.299 Tympanomet ry: Right Ear:{{Type A* Type [...] a hermetic seal}} Bilateral temporomandibular joint pain [id number] 5651678 M26.623 Sensorineu ral hearing loss of bilateral ears 126401578 H90.3 Health Concerns Section Related Observation LastModified by Organization Detai ls LastModified Time None Recorded Concern Status LastModified by Organization Details LastModified Time None Recorded Advance Directives Directive None Recorded Payers Encounter Date Sequence Insurance Name Policy Number Policy Gamino Covered Member ID Gamino Member ID Guarantor Name 05/28/2024 1 [facility] HEALTH NET PLAN (MEDICAID HMO) JAIDEN Durham [id number] Mellisa Durham Notes Date Note Type Note [...] Occasional buzzing sounds bilaterally. MERRILL IRIZARRY MD [address] [place] [address], [id number] - [facility] 05/28/2024 17:20:37 OBGyn Episode No OBEpisode recorded.
== END 2024-10-16 14:08 | disposition home or self-care (01) ==
LOC: HO.ENCR 13:35
PROVIDERS: PCP Internal Medicine; Visit Provider Student in an Organized Health Care Education/Training Program
DX: Z13.9 Encounter for screening, unspecified (principal); E11.42 Type 2 diabetes mellitus with diabetic polyneuropathy; Z79.4 Long term (current) use of insulin
CPT/HCPCS: 95251; 99214

== ENCOUNTER → 2024-10-16 13:34 | Outpatient (BNVA) | payer OTHER, SELFPAY | PROVIDERS: PCP Internal Medicine; Visit Provider Student in an Organized Health Care Education/Training Program | DX: E11.42 Type 2 diabetes mellitus with diabetic polyneuropathy (principal); Z79.4 Long term (current) use of insulin | CPT/HCPCS: 82947; 83036; 99212 ==

== ENCOUNTER 2024-10-22 08:27 | Outpatient (REF) | payer OTHER, SELFPAY ==
--- OUTSIDE RECORDS SUMMARY | 2024-10-22 08:53 | XMS_ITS | Clinical Summary ---
Author Organization [facility] Address [address] [place] [address] Care Team Providers Care Loan Servicing Specialist Name Role Phone Unavailable Primary Care Provider [...] 2009 Imm-Zoster, Recombinant (1 of 2) 2014 [id number] ( season) 2024 021, 10/07/2020 Imm-Influenza (#1) 2024 04/04/2019, 05/30/2018 Alcohol and Drug Screen 07/03/2024 Depression Annual Screen 07/03/2024 Imm-DTaP/Tdap/Td (2 - Td or Tdap) 01/06/2030 020, 07/08/2015 Cervical Ablation/Cold-Knife Conization Discontinued Cervical Cryotherapy Discontinued Colposcopy Discontinued Endometrial Biopsy Discontinued Excision/Leep Discontinued HPV Genotyping Discontinued Vaginal Pap Discontinued Vulvoscopy Discontinued [facility] [id number] [facility] Member Subscriber Plan / Payer (Ef fective 2020-Present) Name:Mellisa Durham Relation to Subscriber:Self Name:Mellisa Durham Payer ID:[id number] Group ID:[place] Type:Medicaid Address: [facility] [address] [place] [address]
--- OUTSIDE RECORDS SUMMARY | 2024-10-22 08:53 | XMS_ITS | Clinical Summary ---
Author [facility] Address [address] [place] [address] Care Team Providers Care Assistant Strength Coach Name Role Phone Unavailable Primary Care Provider [...]
[2024-10-22 10:01] LABS: Alanine Aminotransferase 34 U/L (0-31); Albumin Level 4.1 g/dL (3.5-5.0); Alkaline Phosphatase 69 U/L (39-117); Anion Gap 12 (12-20); Aspartate Amino Transferase 36 U/L (5-31); Bilirubin Total 0.6 mg/dL (0.0-1.0); Blood Urea Nitrogen 17 mg/dL (9-16); Calcium 9.4 mg/dL (8.4-10.2); Carbon Dioxide 28 mmol/L (22-29); Chloride 102 mmol/L (96-108); Cholesterol 120 mg/dL (<200); Estimated Glomerular Filt Rate > 60; Glucose Fasting 281 mg/dL (60-99); HDL Cholesterol 36 mg/dL (>40); LDL Cholesterol Calculated 64 mg/dL (<100); Sodium 138 mmol/L (135-145); Total Protein 7.1 g/dL (6.5-8.0); Triglycerides 100 mg/dL (<150)
[2024-10-22 10:02] LABS: Vitamin D 25-OH Total 39.3 ng/mL (>30)
[2024-10-22 10:13] LABS: Vitamin B12 903 pg/mL (200-900)
== END 2024-10-22 08:28 | disposition home or self-care (01) ==
LOC: HO.LAB 08:27
PROVIDERS: PCP Internal Medicine; Visit Provider Internal Medicine
DX: N13.30 Unspecified hydronephrosis (principal); E55.9 Vitamin D deficiency, unspecified; E78.5 Hyperlipidemia, unspecified; E53.8 Deficiency of other specified B group vitamins; Z79.4 Long term (current) use of insulin; R80.9 Proteinuria, unspecified
CPT/HCPCS: 36415; 80053; 80061; 82306; 82607; 82746; 99212

== ENCOUNTER 2024-10-22 09:34 | Outpatient (AMB) | payer OTHER, SELFPAY ==
[2024-10-22 09:42] VITALS: BP 138/64; PULSE 84; O2SAT 98; BMI 30.3
--- NOTE | 2024-10-22 09:42 | HO.NEPHOV_ITS ---
Vital Signs 10/22/24 09:42 Height 5 ft 3 in Weight 171 lb BMI 30.3 BP 138/64 Blood Pressure Location Rt brachial Position Sitting Pulse 84 Pulse Source Pulse Oximeter Pulse Oximetry (%) 98 Oxygen Delivery Method Room Air Intake Visit Reasons: Proteinuria/ Conf Complementary Health Therapists Required: Yes Complementary Health Therapists Language: Him Manager Services: Complementary Health Therapists Present Complementary Health Therapists Name: Leticia ([id number]) Allergies Penicillins Allergy (Mild, Verified 10/22/24 09:43) RASH/DYSPNEA canagliflozin [From Invokana] Adverse Reaction (Severe, Verified 10/22/24 09:43) uti metformin Adverse Reaction (Intermediate, Verified 10/22/24 09:43) stomach upset mounjaro Adverse Reaction (Intermediate, Uncoded 10/22/24 09:43) Abdominal Pain trulicity Adverse Reaction (Intermediate, Uncoded 10/22/24 09:43) Abdominal Pain Medication List - Last Reconciled 10/22/24 by Kris Rausch MD acetone (urine) test (Ketone Urine Test strips) As directed albuterol sulfate 2.5 mg (3 mL) inhalation Q4-6H PRN albuterol sulfate 90 mcg/actuation 2 puffs inhalation Q4-6H PRN atorvastatin 40 mg PO DAILY blood sugar diagnostic (FreeStyle Lite Strips) As directed four times a day blood-glucose meter (FreeStyle Lite Meter kit) use as directed to test blood sugar 4x per day blood-glucose sensor (FreeStyle Sandra 3 Plus Sensor device) continuous sensor reapply every 15 days cholecalciferol (vitamin D3) (Vitamin D3) 25 mcg PO DAILY 90 days cyanocobalamin (vitamin B-12) 500 mcg sublingual DAILY 90 days esomeprazole magnesium (Nexium) 40 mg PO DAILY famotidine (Pepcid) 20 mg PO BEDTIME fluticasone propion-salmeterol 230-21 mcg/actuation (Advair HFA) 2 puffs inhalation BID fluticasone propionate 50 mcg/actuation (Flonase Allergy Relief) 1 spray intranasal DAILY PRN heating pads As directed hydrochlorothiazide 12.5 mg PO QAM incontinence pad, liner, disp Use 1 pad twice a day insulin aspart U-100 20 units (0.2 mL) subcut TID 90 days ketorolac 10 mg PO TID PRN lancets (ErikaStyle Lancets) every 4 hours prn dispense as 32 gauge if avil Lantus Solostar U-100 Insulin (insulin glargine) 55 units (0.55 mL) subcut DAILY 90 days NS lidocaine 5% 1 patch topical DAILY PRN lidocaine HCl 2% 1 appl mucous membrane BID PRN 30 days lorazepam 0.5 mg PO BID-TID PRN montelukast 10 mg PO DAILY nebulizer accessories NEBULIZER FACE MASK ADULT, USE DIRECTED nebulizers (AeroEExtreme Enterprisese II Nebulizer) As directed pen needle, diabetic (BD Sondra 2nd Gen Pen Needle) 4 times daily pioglitazone 45 mg PO DAILY 90 days sennosides (Natural Senna Laxative) 17.2 mg (2 x 8.6 mg) PO BEDTIME Shower Chair As directed simethicone 125 mg PO BID-QID PRN solifenacin (Vesicare) 5 mg PO DAILY PRN [toilet seat elevator As directed] zolpidem 5 mg PO BEDTIME HPI Comments Details: 58-year-old man with a history of longstanding diabetes mellitus for almost 23 years has been referred for evaluation of renal function. She has been noting some foaming during urination. There is a question of proteinuria. Serum creatinine has been stable and less than 1.0. She tells me his blood sugar has been suboptimally controlled recent A1c was 8.3%. Currently she is being treated by endocrinology. She has been taking hydrochlorothiazide 12.5 mg. This was given because of generalized edema. She admits to eating excessive salty food. 01/05/2024. Overall doing well. Recently had vaginal fungal infection. She was treated with miconazole. She is on SGLT2 inhibitors. 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 Pernicious anemia Insomnia Depression with anxiety Moderate asthma Essential hypertension Polyarthralgia GERD (gastroesophageal reflux disease) Type 2 diabetes mellitus with other diabetic neurological complication Diabetes Hearing loss Surgical History Hx of bilateral cataract extraction History of esophagogastroduodenoscopy (EGD) H/O colonoscopy History of cholecystectomy History of umbilical hernia repair History of foot surgery History of carpal tunnel release History of surgery on arm History of endometrial ablation History of tubal ligation Family History Mother Breast cancer Paternal Grandmother Breast cancer Brother Colon cancer Family/Other FH: mental illness Mental health disorder Father CAD (coronary artery disease) Social History Household Members: Children Housing: Apartment Are you a primary manager medicare to a significant other at home: No Do you presently have visiting nurse or other home services: Yes ([employer] [facility]) Alcohol intake: never Patient Tobacco Use Status: Never used Tobacco e-Cigarette/Vaping Use: Never Used Second Hand Smoke Exposure: No service: No Current occupational status: disabled Current occupation: Right hand dominate Cognitive needs: No Hearing needs: No Vision needs: Yes Female Reproductive History Menstrual Age of Menarche: 11 Physical Exam Vital Signs: Last Vital Signs Pulse 84 10/22/24 09:42 BP 138/64 10/22/24 09:42 Pulse Ox 98 10/22/24 09:42 Oxygen Delivery Method Room Air 10/22/24 09:42 BMI result Body Mass Index 30.3 Const General: comfortable; No acute distress Orientation/consciousness: patient oriented x3 Eyes General: appearance normal, both eyes and all related structures Visual Hines: normal visual hines by confrontation Neck Neck: Yes supple and Yes no JVD Resp Effort & Inspection: normal respiratory effort and respiratory effort not decreased Cardio Palpation: no palpable S3 and no palpable S4 Heart sounds: no rubs GI Inspection: Yes normal to inspection Palpation (GI): Soft to palpation Auscultation: normal bowel sounds General: Yes no CVA tenderness Back/Spine/Pelvis Back: no CVA tenderness Skin General skin exam: no petechiae and no purpura Neuro General: patient oriented x3 and no focal motor deficits Extrem General: No clubbing and No edema Results Reviewed Nephrology Results: Hgb 13.5 g/dl (12.0-16.0) 10/15/24 WBC 6.8 X10*3/uL (4.8-10.8) 10/15/24 Plt Count 117 X10*3/uL (160-400) L 10/15/24 Sodium 138 mmol/L (135-145) 10/22/24 Potassium 4.0 mmol/L (3.3-5.1) 10/22/24 Chloride 102 mmol/L (96-108) 10/22/24 Carbon Dioxide 28 mmol/L (22-29) 10/22/24 BUN 17 mg/dL (9-16) H 10/22/24 Creatinine 0.84 mg/dL (0.5-1.4) 10/22/24 Calcium 9.4 mg/dL (8.4-10.2) 10/22/24 Urine Protein Negative mg/dL (Neg-Trace) 10/15/24 Urine Creatinine 167.35 mg/dL 10/15/24 Assessment & Plan Assessment & Plan (1) Type 2 diabetes mellitus with diabetic polyneuropathy: Code(s): E11.42 - Type 2 diabetes mellitus with diabetic polyneuropathy Category: Medical Qualifiers: Diabetes mellitus longterm insulin use: with longterm use Qualified Code(s): E11.42 - Type 2 diabetes mellitus with diabetic polyneuropathy; Z79.4 - 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 Middle-aged woman with longstanding history of diabetes mellitus. At present renal function stable with a creatinine of 0.9 mg/dL. In the past she did not have any significant proteinuria. No significant proteinuria based on urine protein creatinine ratio. The blood pressure well controlled. Encouraged her to stand on a low-sodium diet. Needs to increase p.o. fluid intake. Concur with other management and agree with using SGLT2 inhibitors. The glycosuria is due to the use of SGLT2 inhibitors and no further intervention is needed. CT shows mild right hydro Follow with URology Orders: Orders UA and rflx microscopic 6 Months N13.30 - Unspecified hydronephrosis Basic Metabolic Panel 6 Months N13.30 - Unspecified hydronephrosis Total Protein Urine Random 6 Months N13.30 - Unspecified hydronephrosis Creatinine Urine 6 Months N13.30 - Unspecified hydronephrosis Coding Level of Care Code Est Pt Level 4 (99023) Diagnoses Type 2 diabetes mellitus with diabetic polyneuropathy, with long-term current use of insulin E11.42; Z79.4 Diabetes mellitus intermediate manager insulin use: with intermediate manager use Proteinuria R80.9 Hydronephrosis N13.30
--- OUTSIDE RECORDS SUMMARY | 2024-10-22 10:35 | XMS_ITS | Data Portability ---
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 Otologic exam demonstrates TMs are intact with well-aerated middle ear spaces. EACs without obstruction. Tympanometry is type A bilaterally. Her hearing aids from [facility] were sent for adjustment. Recommend she trial the adjusted hearing aids. She will return for audiometric testing if abnormal auditory perception persists. Today we spent some time talking about the fact that cerumen is a natural antibiotic, antifungal, sign maintenance, and moisturizer of the delicate external auditory [...] Sensorine ural hearing loss of bilateral ears [id number] Active 2018 Sensorine ural hearing loss, bilateral ; Note: Date Diagnosed : 03/28/2019 3:34 PM (H90.3) Not Available [facility] 4 02:33:25 Pain of right temporoma ndibular joint [id number] 326825 Active 2019 Arthralgi a of right temporoma ndibular joint; Note: Date Diagnosed : 0 3:09 PM (M26.621) Not Available [facility] 4 02:33:24 Abrasion of skin of left ear 29560132079 877785 Active 2018 Abrasion of left ear, initial encounter ; Note: Date Diagnosed : 03/28/2019 2:58 PM (S00.412A ) Not Available [facility] 4 02:33:25 Bilateral temporoma ndibular joint pain 24820372414 122913 Active 2021 Arthralgi a of bilateral temporoma ndibular joint; Note: Date Diagnosed : 08/26/2021 4:41 PM (M26.623) Not Available [facility] 4 02:33:30 Foreign body in left ear 07386738969 173364 Active 2018 Foreign body in left ear, initial encounter ; Note: Date Diagnosed : 03/28/2019 2:58 PM (T16.2XXA ) Not Available [facility] 4 02:33:35 Abnormal auditory perceptio n 41781552 Active 2023 Leonie wharton [place] - [facility] 4 10:43:01 Problem Notes None recorded. Procedures Surgical History Date Name Laterality Status Provider Name and Address Organization Details Recorded Time 05/28/20 24 Tympanometry (03705) completed Leonie Peña MA - [facility] 05/28/2024 10:42:54 Imaging Results Imaging Date [...] unkno wn, unspe cifie d;; Not Available [facility] Medications Name Sig Start Date Stop Date Status Note LastModified by Organization Details LastModified Time cyclobenz aprine 10 mg tablet 2018 active Medicati on ID: [id number] D uration Value: 20 Brand Name: tish [...] mg tablet 05/28 completed Medicati on ID: [id number] D uration Value: 30 Brand Name: atorvast [...] mg tablet 05/28 completed Medicati on ID: [id number] B rand Name: ciproflo xacin HCl Send [...] ear drops 05/28 completed Medicati on ID: [id number] B rand Name: ofloxaci n Send Method: [...] mg tablet 2018 active Medicati on ID: [id number] D uration Value: 30 Brand Name: metoclop [...] injection solution 05/28 completed Medicati on ID: [id number] B rand Name: cyanocob alamin (vitamin B-12) Se nd Method: E-Prescr ibed Sub s Allowed: subs OK Medic ationGen ericName : cyanocob alamin (vitamin B-12) Not Available Not Available Not Available esomepraz ole magnesium 40 mg capsule,d elayed release active Not Available Not Available Not Available omeprazol e 20 mg capsule,d elayed release 2018 active Medicati on ID: [id number] D uration Value: 30 Brand Name: omeprazo [...] completed Not Available Not Available Not Available Arvonia Saline 0.65 % nasal spray aerosol 05/28 completed Medicati on ID: [id number] B rand Name: Arvonia Saline S end Method: E-Prescr ibed Sub s Allowed: subs OK Medic ationGen ericName : Arvonia Saline Not Available Not Available Not Available [...] pen injector 2018 active Medicati on ID: [id number] D uration Value: 28 Brand Name: Skyler [...] SNOMED-CT Code Diagnosis ICD10 Code Diagnosis Note [id number] MERRILL IRIZARRY MD [facility] [address] [address] 05/28/2024 10:13:26 05/28/2024 11:00:06 Abnormal auditory perception [id number] H93.299 Tympanomet ry: Right Ear:{{Type A* Type [...] a hermetic seal}} Bilateral temporomandibular joint pain [id number] 0387092 M26.623 Sensorineu ral hearing loss of bilateral ears 724714512 H90.3 Health Concerns Section Related Observation LastModified by Organization Detai ls LastModified Time None Recorded Concern Status LastModified by Organization Details LastModified Time None Recorded Advance Directives Directive None Recorded Payers Encounter Date Sequence Insurance Name Policy Number Policy Gamino Covered Member ID Gamino Member ID Guarantor Name 05/28/2024 1 [facility] - HEALTH NET PLAN (MEDICAID HMO) JAIDEN Durham [id number] Mellisa Durham Notes Date Note Type Note [...] ear infections. She has hearing aids from [facility] that she recently sent for adjustments. She has not worn them in 2 years. Occasional buzzing sounds bilaterally. MERRILL IRIZARRY MD [address] [place] [address], [phone] - [facility] 05/28/2024 17:20:37 OBGyn Episode No OBEpisode recorded.
--- OUTSIDE RECORDS SUMMARY | 2024-10-22 10:35 | XMS_ITS | Clinical Summary ---
[facility] Address [address] [place] [address] Care Team Providers Care Energy Sales Broker Name Role Phone Unavailable Primary Care Provider [...]
--- OUTSIDE RECORDS SUMMARY | 2024-10-22 10:35 | XMS_ITS | Clinical Summary ---
Author Organization [facility] Address [address] [place] [address] Care Team Providers Care Manager Leadership Development Name Role Phone Unavailable Primary Care Provider [...] 2009 Imm-Zoster, Recombinant (1 of 2) 2014 [id number] ( season) 2024 021, 10/07/2020 Imm-Influenza (#1) 2024 04/04/2019, 05/30/2018 Alcohol and Drug Screen 07/03/2024 Depression Annual Screen 07/03/2024 Imm-DTaP/Tdap/Td (2 - Td or Tdap) 01/06/2030 020, 07/08/2015 Cervical Ablation/Cold-Knife Conization Discontinued Cervical Cryotherapy Discontinued Colposcopy Discontinued Endometrial Biopsy Discontinued Excision/Leep Discontinued HPV Genotyping Discontinued Vaginal Pap Discontinued Vulvoscopy Discontinued [facility] [employer] [facility] Member Subscriber Plan / Payer (Ef fective 2020-Present) Name:Mellisa Durham Relation to Subscriber:Self Name:Mellisa Durham Payer ID:[id number] Group ID:[id number] Type:Medicaid Address: [facility] [address] [place] [address]
== END 2024-10-22 10:03 | disposition home or self-care (01) ==
LOC: HO.HKA 09:35
PROVIDERS: PCP Internal Medicine; Visit Provider Internal Medicine Hypertension Specialist
DX: E11.42 Type 2 diabetes mellitus with diabetic polyneuropathy (principal); Z79.4 Long term (current) use of insulin; R80.9 Proteinuria, unspecified; N13.30 Unspecified hydronephrosis
CPT/HCPCS: 99214

== ENCOUNTER 2024-10-25 08:59 | Outpatient (REF) | payer OTHER, SELFPAY ==
--- OUTSIDE RECORDS SUMMARY | 2024-10-25 09:05 | XMS_ITS | Data Portability ---
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 Otologic exam demonstrates TMs are intact with well-aerated middle ear spaces. EACs without obstruction. Tympanometry is type A bilaterally. Her hearing aids from [facility] were sent for adjustment. Recommend she trial the adjusted hearing aids. She will return for audiometric testing if abnormal auditory perception persists. Today we spent some time talking about the fact that cerumen is a natural antibiotic, antifungal, medical translator, and moisturizer of the delicate external auditory [...] Sensorine ural hearing loss of bilateral ears 755508373 Active 2018 Sensorine ural hearing loss, bilateral ; Note: Date Diagnosed : 03/28/2019 3:34 PM (H90.3) Not Available [facility] 4 02:33:25 Pain of right temporoma ndibular joint 86104195572 638669 Active 2019 Arthralgi a of right temporoma ndibular joint; Note: Date Diagnosed : 0 3:09 PM (M26.621) Not Available [facility] 4 02:33:24 Abrasion of skin of left ear 59514193104 720466 Active 2018 Abrasion of left ear, initial encounter ; Note: Date Diagnosed : 03/28/2019 2:58 PM (S00.412A ) Not Available [facility] 4 02:33:25 Bilateral temporoma ndibular joint pain 54985096369 275376 Active 2021 Arthralgi a of bilateral temporoma ndibular joint; Note: Date Diagnosed : 08/26/2021 4:41 PM (M26.623) Not Available [facility] 4 02:33:30 Foreign body in left ear 96578796204 563667 Active 2018 Foreign body in left ear, initial encounter ; Note: Date Diagnosed : 03/28/2019 2:58 PM (T16.2XXA ) Not Available [facility] 4 02:33:35 Abnormal auditory perceptio n 19133800 Active 2023 Leonie wharton MA - [facility] 4 10:43:01 Problem Notes None recorded. Procedures Surgical History Date Name Laterality Status Provider Name and Address Organization Details Recorded Time 05/28/20 24 Tympanometry (20718) completed Leonie Peña MA - [facility] 05/28/2024 10:42:54 Imaging Results Imaging Date [...] unkno wn, unspe cifie d;; Not Available [facility] Medications Name Sig Start Date Stop Date Status Note LastModified by Organization Details LastModified Time cyclobenz aprine 10 mg tablet 2018 active Medicati on ID: [id number] D uration Value: 20 Brand Name: tish [...] mg tablet 05/28 completed Medicati on ID: [id number] D uration Value: 30 Brand Name: atorvast [...] mg tablet 05/28 completed Medicati on ID: [id number] B rand Name: ciproflo xacin HCl Send [...] ear drops 05/28 completed Medicati on ID: [id number] B rand Name: ofloxaci n Send Method: [...] mg tablet 2018 active Medicati on ID: [id number] D uration Value: 30 Brand Name: metoclop [...] injection solution 05/28 completed Medicati on ID: [id number] B rand Name: cyanocob alamin (vitamin B-12) Se nd Method: E-Prescr ibed Sub s Allowed: subs OK Medic ationGen ericName : cyanocob alamin (vitamin B-12) Not Available Not Available Not Available esomepraz ole magnesium 40 mg capsule,d elayed release active Not Available Not Available Not Available omeprazol e 20 mg capsule,d elayed release 2018 active Medicati on ID: [id number] D uration Value: 30 Brand Name: omeprazo [...] completed Not Available Not Available Not Available Oran Saline 0.65 % nasal spray aerosol 05/28 completed Medicati on ID: [id number] B rand Name: Oran Saline S end Method: E-Prescr ibed Sub s Allowed: subs OK Medic ationGen ericName : Oran Saline Not Available Not Available Not Available [...] pen injector 2018 active Medicati on ID: [id number] D uration Value: 28 Brand Name: Skyler [...] SNOMED-CT Code Diagnosis ICD10 Code Diagnosis Note [id number] MERRILL IRIZARRY MD [facility] [address] [address] 05/28/2024 10:13:26 05/28/2024 11:00:06 Abnormal auditory perception 01789073 H93.299 Tympanomet ry: Right Ear:{{Type A* Type [...] a hermetic seal}} Bilateral temporomandibular joint pain [id number] 1093377 M26.623 Sensorineu ral hearing loss of bilateral ears 171773320 H90.3 Health Concerns Section Related Observation LastModified by Organization Detai ls LastModified Time None Recorded Concern Status LastModified by Organization Details LastModified Time None Recorded Advance Directives Directive None Recorded Payers Encounter Date Sequence Insurance Name Policy Number Policy Gamino Covered Member ID Gamino Member ID Guarantor Name 05/28/2024 1 [facility] - HEALTH NET PLAN (MEDICAID HMO) JAIDEN Durham [id number] Mellisa Durham Notes Date Note Type Note [...] ear infections. She has hearing aids from [facility] that she recently sent for adjustments. She has not worn them in 2 years. Occasional buzzing sounds bilaterally. MERRILL IRIZARRY MD [address] [place] [address], [phone] - [facility] 05/28/2024 17:20:37 OBGyn Episode No OBEpisode recorded.
--- OUTSIDE RECORDS SUMMARY | 2024-10-25 09:05 | XMS_ITS | Clinical Summary ---
[facility] Organization [facility] Address [address] [place] [address] Care Team Providers Care Stock Wetter Name Role Phone Unavailable Primary Care Provider [...]
--- OUTSIDE RECORDS SUMMARY | 2024-10-25 09:05 | XMS_ITS | Clinical Summary ---
Author Organization [facility] Address [address] [place] [address] Care Team Providers Care Automobile Racer Name Role Phone Unavailable Primary Care Provider [...] 2009 Imm-Zoster, Recombinant (1 of 2) 2014 Jhg-[id number] ( season) 2024 021, 10/07/2020 Imm-Influenza (#1) 2024 04/04/2019, 05/30/2018 Alcohol and Drug Screen 07/03/2024 Depression Annual Screen 07/03/2024 Imm-DTaP/Tdap/Td (2 - Td or Tdap) 01/06/2030 020, 07/08/2015 Cervical Ablation/Cold-Knife Conization Discontinued Cervical Cryotherapy Discontinued Colposcopy Discontinued Endometrial Biopsy Discontinued Excision/Leep Discontinued HPV Genotyping Discontinued Vaginal Pap Discontinued Vulvoscopy Discontinued Insurance [facility] [employer] [facility] Member Subscriber Plan / Payer (Ef fective 2020-Present) Name:Mellisa Durham Relation to Subscriber:Self Name:Mellisa Durham Payer ID:[id number] Group ID:[id number] Type:Medicaid Address: [facility] [address] [place] [address]
[2024-10-25 09:56] LABS: Creatinine Urine 107.98 mg/dL; Microalbum/Creatinine Ratio Ur 4.6 ug/mg cr (<30)
== END 2024-10-25 09:00 | disposition home or self-care (01) ==
LOC: HO.LNP 08:59
PROVIDERS: Visit Provider Internal Medicine
DX: R80.9 Proteinuria, unspecified (principal)
CPT/HCPCS: 82043; 82570

== ENCOUNTER 2024-10-28 08:40 | Outpatient (REF) | payer OTHER, SELFPAY ==
--- OUTSIDE RECORDS SUMMARY | 2024-10-28 09:16 | XMS_ITS | Clinical Summary ---
Author Organization [facility] Address [address] [place] [address] Care Team Providers Care Grocery Packer Name Role Phone Unavailable Primary Care Provider [...] 2009 Imm-Zoster, Recombinant (1 of 2) 2014 Eon-[id number] ( season) 2024 021, 10/07/2020 Imm-Influenza (#1) 2024 04/04/2019, 05/30/2018 Alcohol and Drug Screen 07/03/2024 Depression Annual Screen 07/03/2024 Imm-DTaP/Tdap/Td (2 - Td or Tdap) 01/06/2030 020, 07/08/2015 Cervical Ablation/Cold-Knife Conization Discontinued Cervical Cryotherapy Discontinued Colposcopy Discontinued Endometrial Biopsy Discontinued Excision/Leep Discontinued HPV Genotyping Discontinued Vaginal Pap Discontinued Vulvoscopy Discontinued Insurance [facility] [employer] [facility] Member Subscriber Plan / Payer (Ef fective 2020-Present) Name:Mellisa Durham Relation to Subscriber:Self Name:Mellisa Durham Payer ID:[id number] Group ID:[id number] Type:Medicaid Address: [facility] [address] [place] [address]
--- OUTSIDE RECORDS SUMMARY | 2024-10-28 09:17 | XMS_ITS | Clinical Summary ---
Author Organization [facility] Address [address] [place] [address] Care Team Providers Care Truck Jumper Name Role Phone Unavailable Primary Care Provider [...]
--- OUTSIDE RECORDS SUMMARY | 2024-10-28 09:17 | XMS_ITS | Data Portability ---
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 Otologic exam demonstrates TMs are intact with well-aerated middle ear spaces. EACs without obstruction. Tympanometry is type A bilaterally. Her hearing aids from [facility] were sent for adjustment. Recommend she trial the adjusted hearing aids. She will return for audiometric testing if abnormal auditory perception persists. Today we spent some time talking about the fact that cerumen is a natural antibiotic, antifungal, admissions director, and moisturizer of the delicate external auditory [...] Sensorine ural hearing loss of bilateral ears [id number] Active 2018 Sensorine ural hearing loss, bilateral ; Note: Date Diagnosed : 03/28/2019 3:34 PM (H90.3) Not Available [facility] 02:[facility]:25 Pain of right temporoma ndibular joint [id number] 527607 Active 2019 Arthralgi a of right temporoma ndibular joint; Note: Date Diagnosed : 0 3:09 PM (M26.621) Not Available [facility] 4 02:33:24 Abrasion of skin of left ear [id number] 081919 Active 2018 Abrasion of left ear, initial encounter ; Note: Date Diagnosed : 03/28/2019 2:58 PM (S00.412A ) Not Available [facility] 4 02:33:25 Bilateral temporoma ndibular joint pain 53432758780 596888 Active 2021 Arthralgi a of bilateral temporoma ndibular joint; Note: Date Diagnosed : 08/26/2021 4:41 PM (M26.623) Not Available [facility] 4 02:33:30 Foreign body in left ear 85350569602 769750 Active 2018 Foreign body in left ear, initial encounter ; Note: Date Diagnosed : 03/28/2019 2:58 PM (T16.2XXA ) Not Available [facility] 4 02:33:35 Abnormal auditory perceptio n 87538973 Active 2023 Leonie wharton MA - [facility] 4 10:43:01 Problem Notes None recorded. Procedures Surgical History Date Name Laterality Status Provider Name and Address Organization Details Recorded Time 05/28/20 24 Tympanometry (00626) completed Leonie Peña MA - [facility] 05/28/2024 10:42:54 Imaging Results Imaging Date Name [...] unkno wn, unspe cifie d;; Not Available [facility] 01:04:04 Medications Name Sig Start Date Stop Date Status Note LastModified by Organization Details LastModified Time cyclobenz aprine 10 mg tablet 2018 active Medicati on ID: [id number] D uration Value: 20 Brand Name: tish [...] mg tablet 05/28 completed Medicati on ID: [id number] D uration Value: 30 Brand Name: atorvast [...] mg tablet 05/28 completed Medicati on ID: [id number] B rand Name: ciproflo xacin HCl Send [...] ear drops 05/28 completed Medicati on ID: [id number] B rand Name: ofloxaci n Send Method: [...] mg tablet 2018 active Medicati on ID: [id number] D uration Value: 30 Brand Name: metoclop [...] injection solution 05/28 completed Medicati on ID: [id number] B rand Name: cyanocob alamin (vitamin B-12) Se nd Method: E-Prescr ibed Sub s Allowed: subs OK Medic ationGen ericName : cyanocob alamin (vitamin B-12) Not Available Not Available Not Available esomepraz ole magnesium 40 mg capsule,d elayed release active Not Available Not Available Not Available omeprazol e 20 mg capsule,d elayed release 2018 active Medicati on ID: [id number] D uration Value: 30 Brand Name: omeprazo [...] completed Not Available Not Available Not Available [place] Saline 0.65 % nasal spray aerosol 05/28 completed Medicati on ID: [id number] B rand Name: [place] Saline S end Method: E-Prescr ibed Sub s Allowed: subs OK Medic ationGen ericName : [place] Saline Not Available Not Available Not Available [...] pen injector 2018 active Medicati on ID: [id number] D uration Value: 28 Brand Name: Skyler [...] SNOMED-CT Code Diagnosis ICD10 Code Diagnosis Note [id number] MERRILL IRIZARRY MD [facility] [address] [address] 05/28/2024 10:13:26 05/28/2024 11:00:06 Abnormal auditory perception 98508254 H93.299 Tympanomet ry: Right Ear:{{Type A* Type [...] a hermetic seal}} Bilateral temporomandibular joint pain [id number] 7041795 M26.623 Sensorineu ral hearing loss of bilateral ears 604445217 H90.3 Health Concerns Section Related Observation LastModified by Organization Detai ls LastModified Time None Recorded Concern Status LastModified by Organization Details LastModified Time None Recorded Advance Directives Directive None Recorded Payers Encounter Date Sequence Insurance Name Policy Number Policy Gamino Covered Member ID Gamino Member ID Guarantor Name 05/28/2024 1 [facility] - HEALTH NET PLAN (MEDICAID HMO) JAIDEN Durham [id number] Mellisa Durham Notes Date Note Type Note [...] ear infections. She has hearing aids from [facility] that she recently sent for adjustments. She has not worn them in 2 years. Occasional buzzing sounds bilaterally. MERRILL IRIZARRY MD [address] [place] [address], [phone] - [facility] 05/28/2024 17:20:37 OBGyn Episode No OBEpisode recorded.
[2024-10-30 06:33] LABS: Immunoglobulin E 63 kU/L (<OR=114)
== END 2024-10-28 08:41 | disposition home or self-care (01) ==
LOC: HO.LAB 08:40
PROVIDERS: Absent Provider Internal Medicine Hypertension Specialist; PCP Internal Medicine; Visit Provider Nurse Practitioner Family
DX: J30.89 Other allergic rhinitis (principal)
CPT/HCPCS: 36415; 82785

== ENCOUNTER 2024-10-29 09:29 | Outpatient (REF) | payer OTHER, SELFPAY ==
--- NOTE | 2024-10-29 09:34 | EMG_ITS ---
Bilateral tibial and peroneal motor studies were performed. Bilateral superficial peroneal, sural, and median and lateral plantar mixed sensory studies were performed. Tibial H reflexes were obtained, and paraspinal muscles were tested with a needle. IMPRESSION: Moderately severe, axonal, somewhat patchy sensory motor peripheral neuropathy. MD JOSE A Verduzco/FATOUMATA / [id number]
--- OUTSIDE RECORDS SUMMARY | 2024-10-29 10:25 | XMS_ITS | Clinical Summary ---
Author Organization [facility] Address [address] [place] [address] Care Team Providers Care Recreation Attendant Supervisor Name Role Phone Unavailable Primary Care [...] 2009 Imm-Zoster, Recombinant (1 of 2) 2014 Ree-VIGZA-15 ( season) 2024 021, 10/07/2020 Imm-Influenza (#1) 2024 04/04/2019, 05/30/2018 Alcohol and Drug Screen 07/03/2024 Depression Annual Screen 07/03/2024 Imm-DTaP/Tdap/Td (2 - Td or Tdap) 01/06/2030 020, 07/08/2015 Cervical Ablation/Cold-Knife Conization Discontinued Cervical Cryotherapy Discontinued Colposcopy Discontinued Endometrial Biopsy Discontinued Excision/Leep Discontinued HPV Genotyping Discontinued Vaginal Pap Discontinued Vulvoscopy Discontinued [facility] [employer] [facility] Member Subscriber Plan / Payer (Ef fective 2020-Present) Name:Mellisa Durham Relation to Subscriber:Self Name:Mellisa Durham Payer ID:[id number] Group ID:[id number] Type:Medicaid Address: [facility] [address] [place] [address]
--- OUTSIDE RECORDS SUMMARY | 2024-10-29 10:26 | XMS_ITS | Data Portability ---
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 Otologic exam demonstrates TMs are intact with well-aerated middle ear spaces. EACs without obstruction. Tympanometry is type A bilaterally. Her hearing aids from [facility] were sent for adjustment. Recommend she trial the adjusted hearing aids. She will return for audiometric testing if abnormal auditory perception persists. Today we spent some time talking about the fact that cerumen is a natural antibiotic, antifungal, integration technician, and moisturizer of the delicate external auditory [...] Sensorine ural hearing loss of bilateral ears 882242875 Active 2018 Sensorine ural hearing loss, bilateral ; Note: Date Diagnosed : 03/28/2019 3:34 PM (H90.3) Not Available [facility] 4 02:33:25 Pain of right temporoma ndibular joint 03111223624 000286 Active 2019 Arthralgi a of right temporoma ndibular joint; Note: Date Diagnosed : 0 3:09 PM (M26.621) Not Available [facility] 4 02:33:24 Abrasion of skin of left ear 15450125405 274701 Active 2018 Abrasion of left ear, initial encounter ; Note: Date Diagnosed : 03/28/2019 2:58 PM (S00.412A ) Not Available [facility] 4 02:33:25 Bilateral temporoma ndibular joint pain 79598554000 307190 Active 2021 Arthralgi a of bilateral temporoma ndibular joint; Note: Date Diagnosed : 08/26/2021 4:41 PM (M26.623) Not Available [facility] 4 02:33:30 Foreign body in left ear 36755026289 064444 Active 2018 Foreign body in left ear, initial encounter ; Note: Date Diagnosed : 03/28/2019 2:58 PM (T16.2XXA ) Not Available [facility] 4 02:33:35 Abnormal auditory perceptio n 72184406 Active 2023 Leonie wharton MA - [facility] 4 10:43:01 Problem Notes None recorded. Procedures Surgical History Date Name Laterality Status Provider Name and Address Organization Details Recorded Time 05/28/20 24 Tympanometry (07413) completed Leonie Peña MA - [facility] 05/28/2024 10:42:54 Imaging Results Imaging Date Name [...] unkno wn, unspe cifie d;; Not Available [facility] 01:[facility] Medications Name Sig Start Date Stop Date Status Note LastModified by Organization Details LastModified Time cyclobenz aprine 10 mg tablet 2018 active Medicati on ID: [id number] D uration Value: 20 Brand Name: tish [...] mg tablet 05/28 completed Medicati on ID: [id number] D uration Value: 30 Brand Name: atorvast [...] mg tablet 05/28 completed Medicati on ID: [id number] B rand Name: ciproflo xacin HCl Send [...] ear drops 05/28 completed Medicati on ID: [id number] B rand Name: ofloxaci n Send Method: [...] mg tablet 2018 active Medicati on ID: [id number] D uration Value: 30 Brand Name: metoclop [...] injection solution 05/28 completed Medicati on ID: [id number] B rand Name: cyanocob alamin (vitamin B-12) Se nd Method: E-Prescr ibed Sub s Allowed: subs OK Medic ationGen ericName : cyanocob alamin (vitamin B-12) Not Available Not Available Not Available esomepraz ole magnesium 40 mg capsule,d elayed release active Not Available Not Available Not Available omeprazol e 20 mg capsule,d elayed release 2018 active Medicati on ID: [id number] D uration Value: 30 Brand Name: omeprazo [...] completed Not Available Not Available Not Available [place] Saline 0.65 % nasal spray aerosol 05/28 completed Medicati on ID: [id number] B rand Name: [place] Saline S end Method: E-Prescr ibed Sub s Allowed: subs OK Medic ationGen ericName : [place] Saline Not Available Not Available Not Available [...] pen injector 2018 active Medicati on ID: [id number] D uration Value: 28 Brand Name: Skyler [...] SNOMED-CT Code Diagnosis ICD10 Code Diagnosis Note [id number] MERRILL IRIZARRY MD [facility] [address] [address] 05/28/2024 10:13:26 05/28/2024 11:00:06 Abnormal auditory perception 43436984 H93.299 Tympanomet ry: Right Ear:{{Type A* Type [...] a hermetic seal}} Bilateral temporomandibular joint pain 4085711970 4088922 M26.623 Sensorineu ral hearing loss of bilateral ears 612457080 H90.3 Health Concerns Section Related Observation LastModified by Organization Detai ls LastModified Time None Recorded Concern Status LastModified by Organization Details LastModified Time None Recorded Advance Directives Directive None Recorded Payers Encounter Date Sequence Insurance Name Policy Number Policy Gamino Covered Member ID Gamino Member ID Guarantor Name 05/28/2024 1 [facility] - HEALTH NET PLAN (MEDICAID HMO) JAIDEN Durham [id number] Mellisa Durham Notes Date Note Type Note [...] ear infections. She has hearing aids from [facility] that she recently sent for adjustments. She has not worn them in 2 years. Occasional buzzing sounds bilaterally. MERRILL IRIZARRY MD [address] [place] [address], [phone] - [facility] 05/28/2024 17:20:37 OBGyn Episode No OBEpisode recorded.
--- OUTSIDE RECORDS SUMMARY | 2024-10-29 10:26 | XMS_ITS | Clinical Summary ---
Author Organization [facility] Address [address] [place] [address] Care Team Providers Care User Interface Artist Name Role Phone Unavailable Primary Care Provider [...]
== END 2024-10-29 09:30 | disposition home or self-care (01) ==
LOC: HO.NEURO 09:29
PROVIDERS: PCP Internal Medicine; Visit Provider Internal Medicine
DX: R20.2 Paresthesia of skin (principal); G62.9 Polyneuropathy, unspecified
CPT/HCPCS: 95886; 95913

== ENCOUNTER 2024-11-05 12:35 | Outpatient (AMB) | payer OTHER, SELFPAY ==
--- NOTE | 2024-11-05 12:38 | MHC.PC.OV ---
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: No Accompanied by: Self / Same As Patient Allergies Penicillins Allergy (Mild, Verified 11/05/24 13:03) RASH/DYSPNEA canagliflozin [From Invokana] Adverse Reaction (Severe, Verified 11/05/24 13:03) uti metformin Adverse Reaction (Intermediate, Verified 11/05/24 13:03) stomach upset mounjaro Adverse Reaction (Intermediate, Uncoded 11/05/24 13:03) Abdominal Pain trulicity Adverse Reaction (Intermediate, Uncoded 11/05/24 13:03) Abdominal Pain Medication List - Last Reconciled 11/05/24 by Norma Bland MD acetone (urine) test (Ketone Urine Test strips) As directed albuterol sulfate 2.5 mg (3 mL) inhalation Q4-6H PRN albuterol sulfate 90 mcg/actuation 2 puffs inhalation Q4-6H PRN atorvastatin 40 mg PO DAILY blood sugar diagnostic (FreeStyle Lite Strips) As directed four times a day blood-glucose meter (FreeStyle Lite Meter kit) use as directed to test blood sugar 4x per day blood-glucose sensor (FreeStyle Sandra 3 Plus Sensor device) continuous sensor reapply every 15 days cholecalciferol (vitamin D3) (Vitamin D3) 25 mcg PO DAILY 90 days cyanocobalamin (vitamin B-12) 500 mcg sublingual DAILY 90 days esomeprazole magnesium (Nexium) 40 mg PO DAILY famotidine (Pepcid) 20 mg PO BEDTIME fluticasone propion-salmeterol 230-21 mcg/actuation (Advair HFA) 2 puffs inhalation BID fluticasone propionate 50 mcg/actuation (Flonase Allergy Relief) 1 spray intranasal DAILY PRN heating pads As directed hydrochlorothiazide 12.5 mg PO QAM incontinence pad, liner, disp Use 1 pad twice a day insulin aspart U-100 20 units (0.2 mL) subcut TID 90 days ketorolac 10 mg PO TID PRN lancets (FreeStyle Lancets) every 4 hours prn dispense as 32 gauge if avil Lantus Solostar U-100 Insulin (insulin glargine) 55 units (0.55 mL) subcut DAILY 90 days NS lidocaine 5% 1 patch topical DAILY PRN lidocaine HCl 2% 1 appl mucous membrane BID PRN 30 days lorazepam 0.5 mg PO BID-TID PRN montelukast 10 mg PO DAILY nebulizer accessories NEBULIZER FACE MASK ADULT, USE DIRECTED nebulizers (AeroEclipse II Nebulizer) As directed pen needle, diabetic (BD Sondra 2nd Gen Pen Needle) 4 times daily pioglitazone 45 mg PO DAILY 90 days sennosides (Natural Senna Laxative) 17.2 mg (2 x 8.6 mg) PO BEDTIME Shower Chair As directed simethicone 125 mg PO BID-QID PRN solifenacin (Vesicare) 5 mg PO DAILY PRN [toilet seat elevator As directed] zolpidem 5 mg PO BEDTIME Tobacco use date assessed: 07/30/24 Dental Screening Dental Screen Date: 07/30/24 HPI HPI Comments History of Present Illness Details The patient is a 58-year-old female presenting for her annual physical examination and pneumococcal vaccination update. She reports having received the initial pneumococcal vaccine several years ago but requires the second dose. In terms of her medical history, she was diagnosed with an adenomatous tubular adenoma following a colonoscopy in 2020 and is scheduled for another colonoscopy and an endoscopy in December. Her history of type 2 diabetes mellitus is notable, with her most recent hemoglobin A1c measured at 8.5, indicating suboptimal glucose control. She previously used Invokana, which resulted in a urinary tract infection, and experienced stomach pain with metformin, esomeprazole, Mounjaro, and Trulicity. The patient has allergies to penicillin, and she has had cataract surgery, endometrial ablation, and a tubal ligation. Her family history includes her father?s sudden from coronary artery disease and her mother's breast cancer. Mental health is monitored by her psychiatrist due to reported depression, anxiety, and insomnia, as reflected in a PHQ-9 score. - Scheduled pneumococcal vaccination - Colonoscopy and endoscopy planned for December for gastrointestinal monitoring - Mammography scheduled within the month - Discussion on flu vaccine availability starting March - Monitoring of glycemic control with recommended follow-up for diabetes management [facility] Medical History Ear discomfort Palpitations Overweight Type 2 diabetes mellitus with diabetic polyneuropathy B12 deficiency DM2 (diabetes mellitus, type 2) Tubular adenoma Moderate recurrent major depression Dyslipidemia Umbilical hernia Edema Arthritis Ear pain 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 Pernicious anemia Insomnia Depression with anxiety Moderate asthma Essential hypertension Polyarthralgia GERD (gastroesophageal reflux disease) Type 2 diabetes mellitus with other diabetic neurological complication Diabetes Hearing loss Surgical History Hx of bilateral cataract extraction History of esophagogastroduodenoscopy (EGD) H/O colonoscopy History of cholecystectomy History of umbilical hernia repair History of foot surgery History of carpal tunnel release History of surgery on arm History of endometrial ablation History of tubal ligation Family History Mother Breast cancer Paternal Grandmother Breast cancer Brother Colon cancer Family/Other FH: mental illness Mental health disorder Father CAD (coronary artery disease) Social History Household Members: Children Housing: Apartment Are you a primary behavioral health care manager to a significant other at home: No Do you presently have visiting nurse or other home services: Yes (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 1. Little interest or pleasure in doing things: several days 2. Feeling down, depressed, or hopeless: several days 3. Trouble falling or staying asleep, or sleeping too much: several days 4. Feeling tired or having little energy: several days 5. Poor appetite or overeating: several days 6. Feeling bad about yourself - or that you are a failure or have let yourself or your family down: more than half the days 7. Trouble concentrating on things, such as reading the newspaper or watching television: several days 8. Moving or speaking so slowly that other people could have noticed. Or the opposite - being so fidgety or restless that you have been moving around a lot more than usual: several days 9. Thoughts that you would be better off or of hurting yourself in some way: not at all Total score: 9 Depression Screening Interpretation: Positive Depression Screening Follow-up: Existing condition, In treatment, Community Mental Health Worker F/U and Follow-up Visit Requested Depression Screening Done: Yes 86208 - PHQ-9 Billing: Yes Source: Developed by Drs. Hernandez Love, Rebecca Peacock, Kalyan Becker and colleagues, with an educational julio from [employer]. Thrive Questionnaire Date Thrive assessed: 07/30/24 I am a: Patient What is your living situation today?: I have a steady place to live Within the past 12 months, did the food you bought not last and you didn't have the money to get more?: Sometimes True Within the past 12 months, did you worry whether your food would run out before you got money to buy more?: Sometimes True Do you have trouble paying for medicines?: No Do you have trouble getting transportation to medical appointments?: No Do you have trouble paying your heating and electricity bill?: No Do you have trouble taking care of your child, family member or friend?: No Do you have trouble with day-to-day activities such as bathing, preparing meals, shopping, managing finances, etc.?: No Are you currently unemployed and looking for a job?: No Are you interested in more education?: Yes Please select the resources that you would like help with: None Currently or been in a relationship where the following occur: I choose not to answer THRIVE Score: 2 AUDIT C Alcohol Use Questionnaire (AUDIT-C) 1. How often do you have a drink containing alcohol?: Never Total Score: 0 Score Reviewed/Action Taken: No LIANA-7 AMB Questionnaire LIANA-7 Date LIANA - 7 assessed: 07/30/24 Feeling nervous, anxious, or on edge: 1 = Several days Not being able to stop or control worryin = Several days Worrying too much about different things: 1 = Several days Trouble relaxin = Several days Being so restless that it is hard to sit still: 1 = Several days Becoming easily annoyed or irritable: 1 = Several days Feeling afraid as if something awful might happen: 1 = Several days Total LIANA-7 score (0-4 normal; 5-9 mild; 10-14 moderate; 15-21 severe): 7 Source: Developed by Drs. Hernandez Love, Rebecca Peacock, Kalyan Becker and colleagues, with an educational julio from [employer]. LIANA-7 Assessment Billing LIANA-7 Assessment Tool: LIANA-7 Assessment 87107 Review of Systems Const All systems reviewed & are unremarkable except as noted in HPI and below Card Denies chest pain at rest, Denies chest pain with activity, Denies edema, Denies irregular heart rhythm, Denies claudication, Denies dyspnea, Denies dyspnea on exertion, Denies orthopnea, Denies paroxysmal nocturnal dyspnea and Denies slow heart rate Resp Denies cough, Denies dyspnea and Denies dyspnea on exertion Skin/Breast Denies bleeding lesions, Denies changing lesions and Denies rash Neuro Denies lack of coordination Physical exam (Primary Care) Vital Signs: Last Vital Signs BP 112/70 11/05/24 12:39 BMI result Body Mass Index 30.8 Tobacco/Smoking Status: Tobacco use Status Tobacco use date assessed 07/30/24 11/05/24 12:47 Patient Tobacco Use Status Never used Tobacco 11/05/24 12:47 e-Cigarette/Vaping Use Never Used 11/05/24 12:47 PHQ-9: PHQ-9 Score PHQ-9: Total score 9 11/05/24 13:30 Depression Screening Interpretation: Positive Depression Screening Follow-up: Existing condition, In treatment, Community Mental Health Worker F/U and Follow-up Visit Requested Thrive Assessment: Date of Thrive Assessment Date Thrive assessed 07/30/24 11/05/24 12:47 Currently or been in a relationship where the following occur: I choose not to answer HENMT Head: Yes normal to inspection, Yes normocephalic and Yes atraumatic Ears: external ears normal Eyes General: appearance normal, both eyes and all related structures Eyelids: Yes eyelids normal Conjunctivae: conjunctivae normal Neck Neck: Yes normal visual inspection and Yes supple Resp Effort & Inspection: normal respiratory effort Auscultation: clear to auscultation bilaterally Cardio Jugular venous distension: no JVD Rate: regular rate Rhythm: regular rhythm Heart sounds: S1 normal heart sound present and S2 normal heart sound present GI Inspection: Yes normal to inspection Palpation (GI): Soft to palpation and nontender Auscultation: normal bowel sounds Skin General skin exam: no rashes or lesions noted Neuro General: no focal motor deficits Extrem General: Yes full ROM Psych Appearance: grossly normal Immunizations pneumoc 20-adenike conj-dip cr(PF) 0.5 mL IM syringe Performing Provider: Norma Bland MD [facility] Administered by: NACHO Oneil on 11/05/24 13:30 Dose Route Admin Location Dispensed Lot Number Expiration Date NDC Internet Merchant 0.5 mL IM Right Deltoid 0.5 mL [id number] 08/31/25 8945-9994-07 [employer]jamin[employer] Desk VIS Given Date VIS Provided VIS Publication Date 11/05/24 Single Vaccine 22 Eligibility Eligibility Date Funding Source Not [facility] Eligible 11/05/24 Private Coding Level of Care Code Est Pt Level 3 (47011) Est Pt Prev Care 40-64y(37148) Diagnoses Physical exam Z00.00 Lumbar pain M54.50 Type 2 diabetes mellitus with diabetic polyneuropathy, with long-term current use of insulin E11.42; Z79.4 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: with fci use Moderate recurrent major depression F33.1 Additional Codes LAINA-7 Assessment Billing - LIANA-7 Assessment Tool: LIANA-7 Assessment 59837 ([id number]) PHQ-9 - 38164 - PHQ-9 Billing: Yes ([id number]) Time Spent (min) 35 Assessment & Plan Assessment & Plan (1) Physical exam: Code(s): Z00.00 - Encounter for general adult medical examination without abnormal findings Category: Medical (2) Lumbar pain: Code(s): M54.50 - Low back pain, unspecified Category: Medical (3) Type 2 diabetes mellitus with diabetic polyneuropathy: Code(s): E11.42 - Type 2 diabetes mellitus with diabetic polyneuropathy Category: Medical Qualifiers: 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 She is prepared for a repeat colonoscopy to monitor her history of adenomatous adenoma. Type 2 diabetes management remains a focus, in light of an elevated A1c, evaluating her current medications and considering alternatives to better control glucose levels and minimize side effects. Notable allergies and previous reactions to drugs necessitate cautious pharmaceutical management. Psychiatric care for depression and anxiety is ongoing, with therapies guided by her psychiatrist. Additionally, mammography is scheduled, completing her health maintenance for the year. Patient was informed and verbally consented to the use of an ambient scribe for clinic note documentation during this visit. I discussed the need for updating the pneumococcal vaccine considering her vaccination history and age requirements. We also addressed the importance of her upcoming colonoscopy and endoscopy scheduled in December to monitor her gastrointestinal health, particularly following the 2020 finding of adenomatous tubular adenoma. We reviewed her elevated A1c level, emphasizing stricter diabetes control. We addressed the history of medication side effects, ensuring comprehensive management while considering possible alternatives. I emphasized the importance of mental health treatment continuity, given her reported depression and anxiety, with ongoing psychiatric care. We confirmed her mammography is scheduled soon and noted the availability of the flu vaccine starting in March for future planning. Orders: Orders Lipid Panel 4 Months E78.5 - Hyperlipidemia, unspecified Microalbumin, Random (w Creat) 4 Months R80.9 - Proteinuria, unspecified Vitamin D 25-OH Total 4 Months E55.9 - Vitamin D deficiency, unspecified XR lumbar spine 2-3V Today M54.50 - Low back pain, unspecified Vitamin B12 and Folate 4 Months E53.8 - Deficiency of other specified B group vitamins Comprehensive [place]. Panel Fast 4 Months E11.42 - Type 2 diabetes mellitus with diabetic polyneuropathy, Z79.4 - 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 Pneumococcal 20 Immunization Today Z23 - Encounter for immunization Patient Instructions: - Get the pneumococcal vaccine before leaving. - Attend the scheduled colonoscopy and endoscopy in December. - Follow diabetes management recommendations; monitor blood sugar levels closely. - Report any adverse reactions to current medications. - Continue mental health support with psychiatrist and therapist. - Confirm mammography appointment for this month. - Plan to receive the flu vaccine when available next season. - Discuss any new symptoms or concerns during follow-up visits.
[2024-11-05 12:39] VITALS: BP 112/70; BMI 30.8
--- OUTSIDE RECORDS SUMMARY | 2024-11-05 13:50 | XMS_ITS | Clinical Summary ---
Author Organization [facility] ity Address [address] [place] [address] Care Team Providers Care Director Of Institutional Giving Name Role Phone Unavailable Primary Care Provider [...]
--- OUTSIDE RECORDS SUMMARY | 2024-11-05 13:50 | XMS_ITS | Clinical Summary ---
Author Organization [facility] Address [address] [place] [address] Care Team Providers Care Decay Control Operator Name Role Phone Unavailable Primary Care Provider [...] 2009 Imm-Zoster, Recombinant (1 of 2) 2014 Exi-KZBWI-05 ( season) 2024 021, 10/07/2020 Imm-Influenza (#1) 2024 04/04/2019, 05/30/2018 Alcohol and Drug Screen 07/03/2024 Depression Annual Screen 07/03/2024 Imm-DTaP/Tdap/Td (2 - Td or Tdap) 01/06/2030 020, 07/08/2015 Cervical Ablation/Cold-Knife Conization Discontinued Cervical Cryotherapy Discontinued Colposcopy Discontinued Endometrial Biopsy Discontinued Excision/Leep Discontinued HPV Genotyping Discontinued Vaginal Pap Discontinued Vulvoscopy Discontinued [facility] Member Subscriber Plan / Payer (Ef fective 2020-Present) Name:Mellisa Durham Relation to Subscriber:Self Name:Mellisa Durham Payer ID:[id number] Group ID:[id number] Type:Medicaid Address: [facility] [address] [place] [address]
== END 2024-11-05 13:27 | disposition home or self-care (01) ==
LOC: HO.HMCH 12:36
PROVIDERS: PCP Internal Medicine; Visit Provider Internal Medicine
DX: Z00.00 Encounter for general adult medical examination without abnormal findings (principal); E11.42 Type 2 diabetes mellitus with diabetic polyneuropathy; Z79.4 Long term (current) use of insulin; F33.1 Major depressive disorder, recurrent, moderate; M54.50 Low back pain, unspecified; Z23 Encounter for immunization

== ENCOUNTER → 2024-11-05 12:35 | Outpatient (BNVA) | payer OTHER, SELFPAY | PROVIDERS: PCP Internal Medicine; Visit Provider Internal Medicine | DX: Z00.00 Encounter for general adult medical examination without abnormal findings (principal); Z23 Encounter for immunization; M54.50 Low back pain, unspecified; E11.42 Type 2 diabetes mellitus with diabetic polyneuropathy; F33.1 Major depressive disorder, recurrent, moderate; Z79.4 Long term (current) use of insulin | CPT/HCPCS: 90471; 90677; 96127; 99212; 99396 ==

== ENCOUNTER 2024-11-07 22:43 | Emergency (ER) | payer OTHER, SELFPAY ==
--- NOTE | ~2024-11-07 | CT_ITS ---
CLINICAL HISTORY: flank pain with gross hematuria CT abdomen and pelvis without contrast Comparison: 07/01/2024 Findings: The lung bases are clear. Cholecystectomy. No abnormal biliary ductal dilatation. Normal liver, pancreas, spleen, and adrenal glands. Mild circumferential urinary bladder wall thickening. Trace right hydronephrosis. Punctate nonobstructing interpolar region right renal calculus. No additional urinary tract calculus. Uterus and ovaries normal. No free fluid or free air. Stomach, small bowel, appendix, and colon are within normal limits. No aortic aneurysm. Bones intact. IMPRESSION: 1. Trace right hydronephrosis with nonobstructing right interpolar region calculus. No other obstructing renal calculus or ureteral calculus identified. Recently passed calculus is not excluded. 2. Circumferential urinary bladder wall thickening may indicate cystitis. Correlate with urinalysis. Ascending urinary tract infection is not excluded. This document has been electronically signed by: Julito Minaya MD on 11/08/2024 00:35:08
[2024-11-07 22:49] VITALS: BP 127/73; PULSE 94; RESP 20; TEMP 35.9; O2SAT 98; BMI 31.5
--- NOTE | 2024-11-07 23:06 | MHC.EDTECH ---
this tech assumed care of pt at this time
--- NOTE | 2024-11-07 23:24 | ED_ITS ---
HPI - Female Genitourinary General Chief complaint: Urogenital-Female Stated complaint: blood in urine Time Seen by Provider: 11/07/24 23:23 Source: patient Mode of arrival: ambulatory Limitations: no limitations History of Present Illness ED Provider: HPI Narrative: Patient complaining of blood in the urine for last 2 hours with suprapubic pain also complaining of lower back no fever no chills no history of kidney stone Related Data Home Medications ?Medication ?Instructions ?Recorded ?Confirmed zolpidem 5 mg tablet 5 mg PO BEDTIME 04/16/20 11/05/24 fluticasone propionate 230 2 puff inhalation BID 06/17/24 11/05/24 mcg-salmeterol 21 mcg/actuation HFA inhaler (Advair HFA) lorazepam 0.5 mg tablet 0.5 mg PO BID-TID PRN Anxiety 08/26/24 11/05/24 atorvastatin 40 mg tablet 40 mg PO DAILY 08/28/24 11/05/24 fluticasone propionate 50 1 spray intranasal DAILY PRN 08/28/24 11/05/24 mcg/actuation nasal Allergy Symptoms spray,suspension (Flonase Allergy Relief) hydrochlorothiazide 12.5 mg tablet 12.5 mg PO QAM 08/28/24 11/05/24 lidocaine 5 % topical patch 1 patch topical DAILY PRN Pain 08/28/24 11/05/24 solifenacin 5 mg tablet (Vesicare) 5 mg PO DAILY PRN Bladder Spasms 08/28/24 11/05/24 Previous Rx's ?Medication ?Instructions ?Recorded heating pads #1 ea 05/31/22 nebulizer accessories #1 ea 11/30/22 blood-glucose meter (FreeStyle #1 ea 12/21/22 Lite Meter kit) nebulizers (AeroEclipse II #1 ea 03/30/23 Nebulizer) incontinence pad, liner, disp #60 ea 10/07/23 toilet seat elevator #1 ea 10/23/23 cholecalciferol (vitamin D3) 25 25 mcg PO DAILY 90 days #90 tabs 12/25/23 mcg (1,000 unit) tablet (Vitamin D3) pioglitazone 45 mg tablet 45 mg PO DAILY 90 days #90 tabs 12/25/23 montelukast 10 mg tablet 10 mg PO DAILY #90 tabs 01/08/24 lidocaine HCl 2 % mucosal solution 1 appl mucous membrane BID PRN 01/17/24 pain 30 days #100 mL Shower Chair #1 ea 02/05/24 acetone (urine) test (Ketone Urine #50 ea 04/25/24 Test strips) blood sugar diagnostic (FreeStyle #150 ea 04/25/24 Lite Strips) lancets 28 gauge (FreeStyle #100 ea 04/25/24 Lancets) albuterol sulfate 2.5 mg/3 mL 2.5 mg (3 mL) inhalation Q4-6H PRN 04/29/24 (0.083 %) solution for nebulization bronchospasm #75 mL albuterol sulfate 90 mcg/actuation 2 puff inhalation Q4-6H PRN 04/29/24 aerosol inhaler shortness of breath or wheezing #8.5 grams ketorolac 10 mg tablet 10 mg PO TID PRN pain #10 tabs 07/01/24 cyanocobalamin (vitamin B-12) 500 500 mcg sublingual DAILY 90 days 08/07/24 mcg disintegrating #90 tabs tablet,sublingual blood-glucose sensor (FreeStyle #2 ea 08/21/24 Sandra 3 Plus Sensor device) pen needle, diabetic 32 gauge x #200 ea 08/21/24 (BD Sondra 2nd Gen Pen Needle) esomeprazole magnesium 40 mg 40 mg PO DAILY #30 caps 09/23/24 capsule,delayed release (Nexium) famotidine 20 mg tablet (Pepcid) 20 mg PO BEDTIME #90 tabs 09/23/24 sennosides 8.6 mg tablet (Natural 17.2 mg (2 x 8.6 mg) PO BEDTIME 09/23/24 Senna Laxative) constipation #60 tabs simethicone 125 mg capsule 125 mg PO BID-QID PRN abdominal 09/23/24 distention #120 caps Lantus Solostar U-100 Insulin 100 55 unit (0.55 mL) subcut DAILY 90 10/16/24 unit/mL (3 mL) subcutaneous pen days #49.5 mL (insulin glargine) insulin aspart U-100 100 unit/mL 20 unit (0.2 mL) subcut TID 90 10/16/24 (3 mL) subcutaneous pen days #54 mL cefuroxime axetil 250 mg tablet 250 mg PO BID 7 days #14 tabs 11/08/24 phenazopyridine 200 mg tablet 200 mg PO TID 2 days #6 tabs 11/08/24 (Pyridium) Allergies Allergy/AdvReac Type Severity Reaction Status Date / Time Penicillins Allergy Mild RASH/DYSPNE Verified 11/07/24 22:52 A canagliflozin [From Invokana] AdvReac Severe uti Verified 11/07/24 22:52 metformin AdvReac Intermediate stomach Verified 11/07/24 22:52 upset mounjaro AdvReac Intermediate Abdominal Uncoded 11/07/24 22:52 Pain trulicity AdvReac Intermediate Abdominal Uncoded 11/07/24 22:52 Pain Review of Systems 2 Review of Systems: Yes all other systems are reviewed and are negative [facility] Past Medical History Medical History Ear discomfort Palpitations Overweight Type 2 diabetes mellitus with diabetic polyneuropathy B12 deficiency DM2 (diabetes mellitus, type 2) Tubular adenoma Moderate recurrent major depression Dyslipidemia Umbilical hernia Edema Arthritis Ear pain [facility] (current) use of insulin Pernicious anemia Insomnia Depression with anxiety Moderate asthma Essential hypertension Polyarthralgia GERD (gastroesophageal reflux disease) Type 2 diabetes mellitus with other diabetic neurological complication Diabetes Hearing loss Surgical History Hx of bilateral cataract extraction History of esophagogastroduodenoscopy (EGD) H/O colonoscopy History of cholecystectomy History of umbilical hernia repair History of foot surgery History of carpal tunnel release History of surgery on arm History of endometrial ablation History of tubal ligation Family History Family History Mother Breast cancer Paternal Grandmother Breast cancer Brother Colon cancer Family/Other FH: mental illness Mental health disorder Father CAD (coronary artery disease) Social History Social History Household Members: Children Housing: Apartment Are you a primary critical care specialist to a significant other at home: No Do you presently have visiting nurse or other home services: Yes ([employer]) Alcohol intake: never Patient Tobacco Use Status: Never used Tobacco e-Cigarette/Vaping Use: Never Used Second Hand Smoke Exposure: No service: No Current occupational status: disabled Current occupation: Right hand dominate Cognitive needs: No Hearing needs: No Vision needs: Yes Physical Exam 2 Vital Signs: Vital Signs: Last Vital Signs Temp 97.9 F 11/08/24 01:16 Pulse 94 11/08/24 01:16 Resp 20 11/08/24 01:16 BP 127/73 11/08/24 01:16 Pulse Ox 98 11/08/24 01:16 O2 Del Method Room Air 11/08/24 01:16 BMI result Body Mass Index 31.5 Appearance: Alert. Oriented X3. No acute distress. Eyes: PERRLA, No Nystagmus ENT: Pharynx normal. Oral Mucosa moist Neck: Normal inspection. Neck supple. CVS: Normal heart rate and rhythm. Pulses normal. Respiratory: No respiratory distress. Equal air entry bilateral, no wheezing/rales/rhonchi Abdomen: Soft and nontender. Bowel sounds are present, no mass palpable, no CVA tenderness Skin: Skin warm and dry. Normal skin color. Normal skin turgor. Extremities: No lower extremity edema. No calf tenderness Neuro: Oriented X 3. No motor deficit. No sensory deficit.No cerebellar signs , cranial nerves II-XII intact Medications Administered Discontinued Medications Generic Name Dose Route Start Last Admin Trade Name Freq PRN Reason Stop Dose Admin Cefuroxime Axetil 500 mg 11/08/24 00:51 11/08/24 01:05 Cefuroxime Axetil 500 Mg Tablet PO 11/08/24 00:52 500 mg ONCE ONE Administration Phenazopyridine HCl 200 mg 11/08/24 01:02 11/08/24 01:05 Phenazopyridine Hcl 200 Mg Tablet PO 11/08/24 01:03 200 mg ONCE ONE Administration Medical Decision Making Medical Decision Making [facility] Narrative: Patient likely with a hemorrhagic cystitis possible she had a stone which already passed will prescribe antibiotics for UTI Lab Data [facility] Lab Attestation statement: I reviewed the patient's lab results. 11/07/24 23:47 11/07/24 23:47 Labs: Lab Results 11/07/24 11/07/24 Range/Units 23:47 23:54 WBC 8.7 (4.8-10.8) X10*3/uL RBC 4.59 (4.20-5.50) X10*6/uL Hgb 12.9 (12.0-16.0) g/dl Hct 38.9 (37.0-47.0) % MCV 84.7 (80.0-98.0) fL MCH 28.1 (27.0-33.0) pg MCHC 33.2 (31.0-35.0) g/dl RDW 12.9 (11.0-16.0) % Plt Count 111 L (160-400) X10*3/uL MPV 11.8 (9.4-12.3) fL Immature Gran % (Auto) 0.3 (0.0-0.4) % Neut % (Auto) 68.7 (45-73) % Lymph % (Auto) 21.9 (20-40) % Stanly % (Auto) 7.4 (2-11) % Eos % (Auto) 1.4 (0-4) % Baso % (Auto) 0.3 (0-2) % Lymph # (Auto) 1.9 (1.2-4.9) X10*3/uL Stanly # (Auto) 0.6 (0.1-1.2) X10*3/uL Eos # (Auto) 0.1 (0.0-0.4) X10*3/uL Baso # (Auto) 0.0 (0.0-0.2) X10*3/uL Abs Immat Gran (auto) 0.03 (0.00-0.03) X10*3/uL Absolute Neuts (auto) 6.0 (2.0-8.3) x10*3/uL Absolute Nucleated RBC 0.000 (0.0-0.012) X10*3/uL Nucleated RBC % (auto) 0.0 (0.0-0.2) /100WBC Sodium 141 (135-145) mmol/L Potassium 3.6 (3.3-5.1) mmol/L Chloride 104 (96-108) mmol/L Carbon Dioxide 27 (22-29) mmol/L Anion Gap 14 (12-20) BUN 17 H (9-16) mg/dL Creatinine 0.92 (0.5-1.4) mg/dL Estim Creat Clear Calc 63.7 Estimated GFR > 60 Random Glucose 198 H (60-115) mg/dL Calcium 9.5 (8.4-10.2) mg/dL Total Bilirubin 0.4 (0.0-1.0) mg/dL AST 36 H (5-31) U/L ALT 31 (0-31) U/L Alkaline Phosphatase 66 (39-117) U/L Total Protein 6.9 (6.5-8.0) g/dL Albumin 3.9 (3.5-5.0) g/dL Urine Color Yellow Urine Appearance Clear Urine pH 6.5 (5.0-9.0) Ur Specific Freeland 1.010 (1.005-1.025) Urine Protein Negative (Neg-Trace) mg/dL Urine Glucose (UA) Negative (Negative) mg/dL Urine Ketones Negative (Negative) mg/dL Urine Blood Large (3+) H (Negative) Urine Nitrite Negative (Negative) Ur Leukocyte Esterase Large (3+) H (Negative) Urine RBC >20 H (0-2) /HPF Urine WBC >50 H (0-5) /HPF Ur Squamous Epith Cells 0-2 (0-2) /HPF Urine Bacteria 1+ (None Seen) Hyaline Casts 0-2 (0-2) /LPF Radiology Impression Discussion of test interpretation with radiology: I have reviewed the radiologist's reading. Radiologist Impression: IMPRESSION: 1. Trace right hydronephrosis with nonobstructing right interpolar region calculus. No other obstructing renal calculus or ureteral calculus identified. Recently passed calculus is not excluded. 2. Circumferential urinary bladder wall thickening may indicate cystitis. Correlate with urinalysis. Ascending urinary tract infection is not excluded. This document has been electronically signed by: Julito Minaya MD on 11/08/2024 00:35:08 Discharge Plan Discharge Clinical Impression: Cystitis Patient Disposition: Home, Self-Care Instructions: Urinary Tract Infection in Women (ED) Additional Instructions: drink plenty of fluids likely blood in the urine is from the infection in the bladder take antibiotic as prescribed take Pyridium for the pain Prescriptions: New cefuroxime axetil 250 mg tablet 250 mg PO BID 7 Days Qty: 14 0RF phenazopyridine [Pyridium] 200 mg tablet 200 mg PO TID 2 Days Qty: 6 0RF No Action (DME) heating pads Pad See Rx Instructions .Route Qty: 1 0RF Rx Instructions: As directed (DME) blood-glucose meter [FreeStyle Lite Meter] Kit See Rx Instructions .ROUTE .MEDSUPPLY Qty: 1 0RF Rx Instructions: use as directed to test blood sugar 4x per day (DME) nebulizers [AeroEclipse II Nebulizer[place] [facility] [place] .Route Qty: 1 0RF Rx Instructions: As directed (DME) incontinence pad, liner, disp Pad See Rx Instructions .Route Qty: 60 11RF Rx Instructions: Use 1 pad twice a day cholecalciferol (vitamin D3) [Vitamin D3] 25 mcg (1,000 unit) tablet 25 mcg PO DAILY 90 Days Qty: 90 3RF pioglitazone 45 mg tablet 45 mg PO DAILY 90 Days Qty: 90 2RF montelukast 10 mg tablet 10 mg PO DAILY Qty: 90 3RF (DME) Shower [place] [facility] [place] Instructions .Route Qty: 1 0RF Rx Instructions: As directed albuterol sulfate 90 mcg/actuation HFA aerosol inhaler 2 puff inhalation Q4-6H PRN (Reason: shortness of breath or wheezing) Qty: 8.5 0RF albuterol sulfate 2.5 mg /3 mL (0.083 %) solution for nebulization 2.5 mg inhalation Q4-6H PRN (Reason: bronchospasm) Qty: 75 0RF cyanocobalamin (vitamin B-12) 500 mcg tablet,disintegrating 500 mcg sublingual DAILY 90 Days Qty: 90 1RF esomeprazole magnesium [Nexium] 40 mg capsule,delayed release(DR/EC) 40 mg PO DAILY Qty: 30 5RF famotidine [Pepcid] 20 mg tablet 20 mg PO BEDTIME Qty: 90 3RF sennosides [Natural Senna Laxative] 8.6 mg tablet 17.2 mg PO BEDTIME Qty: 60 3RF simethicone 125 mg capsule 125 mg PO BID-QID PRN (Reason: abdominal distention) Qty: 120 3RF ketorolac 10 mg tablet 10 mg PO TID PRN (Reason: pain) Qty: 10 0RF Rx Instructions: Do not use this medication with any other NSAIDs hydrochlorothiazide 12.5 mg tablet 12.5 mg PO QAM atorvastatin 40 mg tablet 40 mg PO DAILY lidocaine 5 % adhesive patch,medicated 1 patch topical DAILY PRN (Reason: Pain) Rx Instructions: leave on most painful area for up to 12 hrs fluticasone propionate [Flonase Allergy Relief] 50 mcg/actuation spray,suspension 1 spray intranasal DAILY PRN (Reason: Allergy Symptoms) Rx Instructions: administer into each nostril solifenacin [Vesicare] 5 mg tablet 5 mg PO DAILY PRN (Reason: Bladder Spasms) zolpidem 5 mg tablet 5 mg PO BEDTIME (DME) toilet seat elevator See Rx Instructions .Route .MEDSUPPLY Qty: 1 0RF Rx Instructions: As directed (DME) nebulizer accessories Misc See Rx Instructions .Route Qty: 1 0RF Rx Instructions: NEBULIZER FACE MASK ADULT, USE DIRECTED lidocaine HCl 2 % solution 1 appl mucous membrane BID PRN (Reason: pain) 30 Days Qty: 100 0RF (DME) Ketone Urine Test Strip See Rx Instructions .Route Qty: 50 5RF Rx Instructions: As directed (DME) FreeStyle Lite Strips Strip See Rx Instructions .ROUTE .MEDSUPPLY Qty: 150 11RF Rx Instructions: As directed four times a day (DME) lancets [FreeStyle Lancets] 28 gauge misc See Rx Instructions .ROUTE .MEDSUPPLY Qty: 100 11RF Rx Instructions: every 4 hours prn dispense as 32 gauge if avil insulin glargine [Lantus Solostar U-100 Insulin] 100 unit/mL (3 mL) insulin pen 55 unit subcut DAILY 90 Days Qty: 49.5 3RF insulin aspart U-100 100 unit/mL (3 mL) insulin pen 20 unit subcut TID 90 Days Qty: 54 4RF fluticasone propion-salmeterol [Advair HFA] 230-21 mcg/actuation HFA aerosol inhaler 2 puff inhalation BID lorazepam 0.5 mg tablet 0.5 mg PO BID-TID PRN (Reason: Anxiety) (DME) FreeStyle Sandra 3 Plus Sensor Device See Rx Instructions .ROUTE .MEDSUPPLY Qty: 2 11RF Rx Instructions: continuous sensor reapply every 15 days (DME) pen needle, diabetic [BD Sondra 2nd Gen Pen Needle] 32 gauge x 5/32 needle See Rx Instructions .ROUTE .MEDSUPPLY Qty: 200 6RF Rx Instructions: 4 times daily Interventions: ED Discharge Assessment Last Done: 11/08/24 01:16 Discharge Date/Time: 11/08/24 01:17 Print Language: Turkish
--- NOTE | 2024-11-07 23:50 | MHC.EDTECH ---
pt changed over into hospital gown and blood work obtained, pt given urine cup in order to obtain specimen for lab work, pt attempting to provide sample at this time. Pt walked w/ steady gait to the bathroom with no assistance needed.
[2024-11-07 23:52] LABS: MANUAL DIFF FLAG NO
--- NOTE | 2024-11-07 23:53 | MHC.EDTECH ---
urine sample obtained and sent down to lab at this time
[2024-11-08 00:01] LABS: Appearance Urine Clear; Color Urine Yellow; Glucose Urine UA Negative (Negative); Leukocyte Esterase Urine Large (3+) (Negative); Nitrite Urine Negative (Negative); PH 6.5 (5.0-9.0); UMIC TRIGGER UACC YES; Urine Blood Large (3+) (Negative); Urine Ketones Negative (Negative); Urine Protein Negative (Neg-Trace)
[2024-11-08 00:03] LABS: Basophils Percent Auto 0.3 % (0-2); Eosinophils Absolute Auto 0.1 X10*3/uL (0.0-0.4); Eosinophils Percent Auto 1.4 % (0-4); Hematocrit 38.9 % (37.0-47.0); Hemoglobin 12.9 g/dl (12.0-16.0); Imm Gran Abs Auto 0.03 X10*3/uL (0.00-0.03); Imm Gran Pct Auto 0.3 % (0.0-0.4); Lymphocytes Absolute Auto 1.9 X10*3/uL (1.2-4.9); Lymphocytes Percent Auto 21.9 % (20-40); Mean Corpuscular HGB Conc 33.2 g/dl (31.0-35.0); Mean Corpuscular Hemoglobin 28.1 pg (27.0-33.0); Mean Corpuscular Volume 84.7 fL (80.0-98.0); Mean Platelet Volume 11.8 fL (9.4-12.3); Monocytes Absolute Auto 0.6 X10*3/uL (0.1-1.2); Monocytes Percent Auto 7.4 % (2-11); Neutrophils Percent Auto 68.7 % (45-73); Platelet Count 111 X10*3/uL (160-400); Red Blood Count 4.59 X10*6/uL (4.20-5.50); Red Cell Distribution Width 12.9 % (11.0-16.0); White Blood Count 8.7 X10*3/uL (4.8-10.8)
[2024-11-08 00:09] LABS: Bacteria Urine 1+ (None Seen); Hyaline Casts Urine 0-2 /LPF (0-2); RBC Urine >20 /HPF (0-2); Squamous Epithelial Cell Urine 0-2 /HPF (0-2); UACC Culture Trigger YES; WBC Urine >50 /HPF (0-5)
[2024-11-08 00:13] LABS: Alanine Aminotransferase 31 U/L (0-31); Albumin Level 3.9 g/dL (3.5-5.0); Alkaline Phosphatase 66 U/L (39-117); Anion Gap 14 (12-20); Aspartate Amino Transferase 36 U/L (5-31); Bilirubin Total 0.4 mg/dL (0.0-1.0); Blood Urea Nitrogen 17 mg/dL (9-16); Calcium 9.5 mg/dL (8.4-10.2); Carbon Dioxide 27 mmol/L (22-29); Chloride 104 mmol/L (96-108); Creatinine Clr Calc Pharmacy 63.7; Estimated Glomerular Filt Rate > 60; Glucose Random 198 mg/dL (60-115); Potassium 3.6 mmol/L (3.3-5.1); Sodium 141 mmol/L (135-145); Total Protein 6.9 g/dL (6.5-8.0)
[2024-11-08] MEDS: cefuroxime axetiL 500 MG TABLET PO (01:05)
[2024-11-08] MEDS: Phenazopyridine HCL 200 MG TABLET PO (01:05)
[2024-11-08 01:16] VITALS: BP 127/73; PULSE 94; RESP 20; TEMP 36.6; O2SAT 98
== END 2024-11-08 01:17 | disposition home or self-care (01) ==
PROVIDERS: Emergency Provider Internal Medicine; PCP Internal Medicine
DX: N30.90 Cystitis, unspecified without hematuria (principal); E11.9 Type 2 diabetes mellitus without complications; I10 Essential (primary) hypertension; E78.5 Hyperlipidemia, unspecified; Z79.4 Long term (current) use of insulin; Z79.02 Long term (current) use of antithrombotics/antiplatelets; Z79.899 Other long term (current) drug therapy
CPT/HCPCS: 36415; 74176; 80053; 81001; 81003; 85025; 87086; 87088; 87186; 99284

== ENCOUNTER → 2024-11-07 23:40 | Outpatient (BNV) | payer OTHER, SELFPAY | PROVIDERS: Emergency Provider Internal Medicine; PCP Internal Medicine; Visit Provider Radiology Diagnostic Radiology | DX: R31.0 Gross hematuria (principal); R10.9 Unspecified abdominal pain | CPT/HCPCS: 74176 ==

== ENCOUNTER 2024-11-09 09:46 | Outpatient (REF) | payer OTHER, SELFPAY | END 2024-11-09 09:47 | disposition home or self-care (01) | LOC: HO.MAMMO 09:46 | PROVIDERS: PCP Internal Medicine; Visit Provider Internal Medicine | DX: Z12.31 Encounter for screening mammogram for malignant neoplasm of breast (principal) | CPT/HCPCS: 77063; 77067 ==

== ENCOUNTER → 2024-11-09 10:00 | Outpatient (BNV) | payer OTHER, SELFPAY | PROVIDERS: PCP Internal Medicine; Visit Provider Internal Medicine | DX: Z12.31 Encounter for screening mammogram for malignant neoplasm of breast (principal) | CPT/HCPCS: 77063; 77067 ==

== ENCOUNTER 2024-11-19 09:29 | Outpatient (AMB) | payer OTHER, SELFPAY ==
--- NOTE | 2024-11-19 09:36 | A.OFFVIS_ITS ---
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 Services: Business Solutions Consultant Present Business Solutions Consultant Name: Marcella Douglass OA Allergies Penicillins Allergy (Mild, Verified 11/19/24 09:45) RASH/DYSPNEA canagliflozin [From Invokana] Adverse Reaction (Severe, Verified 11/19/24 09:45) uti metformin Adverse Reaction (Intermediate, Verified 11/19/24 09:45) stomach upset mounjaro Adverse Reaction (Intermediate, Uncoded 11/19/24 09:45) Abdominal Pain trulicity Adverse Reaction (Intermediate, Uncoded 11/19/24 09:45) Abdominal Pain HPI HPI Asthma: Details: Mellisa is a pleasant 58 year old female, never smoker, with underlying asthma, GERD, DMII, and HTN. She reports suboptimal control of respiratory symptoms reporting dyspnea with intermittent chest tightness and wheezing. She does note that she has not been using Advair as prescribed. She has been using Advair 1 inhalation QD. She denies any visits to urgent care or hospitalizations related to respiratory distress since the last visit. Today she presents for routine visit. [facility] Medical History Ear discomfort Palpitations Overweight Type 2 diabetes mellitus with diabetic polyneuropathy B12 deficiency DM2 (diabetes mellitus, type 2) Tubular adenoma Moderate recurrent major depression Dyslipidemia Umbilical hernia Edema Arthritis Ear pain 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 Pernicious anemia Insomnia Depression with anxiety Moderate asthma Essential hypertension Polyarthralgia GERD (gastroesophageal reflux disease) Type 2 diabetes mellitus with other diabetic neurological complication Diabetes Hearing loss Surgical History Hx of bilateral cataract extraction History of esophagogastroduodenoscopy (EGD) H/O colonoscopy History of cholecystectomy History of umbilical hernia repair History of foot surgery History of carpal tunnel release History of surgery on arm History of endometrial ablation History of tubal ligation Family History Mother Breast cancer Paternal Grandmother Breast cancer Brother Colon cancer Family/Other FH: mental illness Mental health disorder Father CAD (coronary artery disease) Social History Household Members: Children Housing: Apartment Are you a primary healthcare network consultant to a significant other at home: No Do you presently have visiting nurse or 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) Alcohol intake: never Patient Tobacco Use Status: Never used Tobacco e-Cigarette/Vaping Use: Never Used Second Hand Smoke Exposure: No service: No Current occupational status: disabled Current occupation: Right hand dominate Cognitive needs: No Hearing needs: No Vision needs: Yes Female Reproductive History Menstrual Age of Menarche: 11 Review of Systems Const Denies chills, Denies excessive sweating, Denies fever(s), Denies headache(s) and Denies night sweats Eyes Denies dry eyes, Denies irritation and Denies itchy eyes ENT Reports Normal hearing present, Denies headache(s), Denies nasal congestion, D enies nasal discharge, Denies post nasal drip and Denies sore throat Card Denies chest pain, Denies chest pain at rest, Denies chest pain with activity, Denies claudication, Denies leg edema, Denies orthopnea and Denies paroxysmal nocturnal dyspnea Resp Denies chest congestion, Denies cough, Denies excessive phlegm production, Denies pain on inspiration, Denies pain with cough and Denies stridor Musc Denies myalgias Neuro Reports Normal hearing present and Denies headache(s) Endo Denies excessive sweating Kranthi/Lymph Denies lymphadenopathy Aller/Immun Denies itchy eyes and Denies seasonal rhinorrhea Physical Exam Vital Signs: Last Vital Signs Pulse 75 11/19/24 09:37 BP 124/58 L 11/19/24 09:37 Pulse Ox 97 11/19/24 09:37 Oxygen Delivery Method Room Air 11/19/24 09:37 BMI result Body Mass Index 30.8 Const General: cooperative, healthy appearing, comfortable, no acute distress, well developed and alert Orientation/consciousness: patient oriented x3 Limitations: no limitations HEENT Head: Yes normal to inspection, Yes normocephalic and Yes atraumatic Ears: hearing grossly normal bilaterally and external ears normal Eyes General: appearance normal, both eyes and all related structures Eyelids: Yes eyelids normal Sclerae: sclerae normal EOM: EOMs intact bilaterally Neck Neck: Yes normal visual inspection and Yes no lymphadenopathy Lymphatic: no lymphadenopathy noted Chest Chest palpation & inspection: normal inspection of the chest Resp Effort & Inspection: normal respiratory effort, able to speak in complete sente nces, no audible wheezes, no cough, no stridor, not tachypneic, no tripod positioning and no use of accessory muscles Auscultation: clear to auscultation bilaterally Cardio Jugular venous distension: no JVD Rate: regular rate Rhythm: regular rhythm Skin Other: warm, dry General skin exam: no rashes or lesions noted Neuro General: patient oriented x3 Cranial nerves: Yes Normal hearing present Cognition (Neuro): normal cognition Gait exam (Neuro): Normal gait present Extrem General: Yes normal to inspection, Yes capillary refill normal, Yes no clubbing, cyanosis or edema and Yes no pedal edema Psych Appearance: grossly normal and well kempt Speech and movement: Normal speech and movement present and Clear speech present Affect: normal affect Attitude: cooperative Thought process: Normal thought process present Thought content: Normal thought content present Insight: Good insight present (Psych) Judgement: Good judgement present (Psych) Assessment & Plan Assessment & Plan (1) Asthma: Code(s): J45.909 - Unspecified asthma, uncomplicated Category: Medical Qualifiers: Asthma complication type: with acute exacerbation Asthma persistence: unspecified Asthma severity: moderate Qualified Code(s): J45.901 - Unspecified asthma with (acute) exacerbation (2) Environmental and seasonal allergies: Code(s): J30.89 - Other allergic rhinitis Category: Medical Plan Mellisa reports suboptimal control of respiratory symptoms, however not using Advair as prescribed. Encouraged to increase use to 2 inhalations BID and albuterol MDI PRN. She is aware to call if symptoms do not improve. All questions were answered and patient is in agreement of plan. Will follow up in 3 months or sooner if needed. Medications: New fluticasone propion-salmeterol 230-21 mcg/actuation (Advair HFA) 2 puffs inhalation BID 12 grams 6RF Refilled albuterol sulfate 90 mcg/actuation 2 puffs inhalation Q4-6H PRN 8.5 grams 0RF shortness of breath or wheezing J45.909 - Unspecified asthma, uncomplicated Coding Level of Care Code Est Pt Level 4 (36115) Diagnoses Moderate asthma with acute exacerbation, unspecified whether persistent J45.901 Asthma complication type: with acute exacerbation Asthma persistence: unspecified Asthma severity: moderate Environmental and seasonal allergies J30.89
[2024-11-19 09:37] VITALS: BP 124/58; PULSE 75; O2SAT 97; BMI 30.8
--- OUTSIDE RECORDS SUMMARY | 2024-11-19 10:23 | XMS_ITS | Clinical Summary ---
Author Organization [facility] Address [address] [place] [address] Care Team Providers Care Inspector Crystal Name Role Phone Unavailable Primary Care Provider [...] 2009 Imm-Zoster, Recombinant (1 of 2) 2014 [id number] ( season) 2024 021, 10/07/2020 Imm-Influenza (#1) 2024 04/04/2019, 05/30/2018 Alcohol and Drug Screen 07/03/2024 Depression Annual Screen 07/03/2024 Imm-DTaP/Tdap/Td (2 - Td or Tdap) 01/06/2030 020, 07/08/2015 Cervical Ablation/Cold-Knife Conization Discontinued Cervical Cryotherapy Discontinued Colposcopy Discontinued Endometrial Biopsy Discontinued Excision/Leep Discontinued HPV Genotyping Discontinued Vaginal Pap Discontinued Vulvoscopy Discontinued [facility] Member Subscriber Plan / Payer (Ef fective 2020-Present) Name:Mellisa Durham Relation to Subscriber:Self Name:Mellisa Durham Payer ID:[id number] Group ID:[id number] Type:Medicaid Address: [facility] [address] [place] [address]
--- OUTSIDE RECORDS SUMMARY | 2024-11-19 10:23 | XMS_ITS | Clinical Summary ---
Author Organization [facility] Address [address] [place] [address] Care Team Providers Care Senior Automation Engineer Name Role Phone Unavailable Primary Care [...]
--- OUTSIDE RECORDS SUMMARY | 2024-11-19 10:23 | XMS_ITS | Data Portability ---
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 Otologic exam demonstrates TMs are intact with well-aerated middle ear spaces. EACs without obstruction. Tympanometry is type A bilaterally. Her hearing aids from [facility] were sent for adjustment. Recommend she trial the adjusted hearing aids. She will return for audiometric testing if abnormal auditory perception persists. Today we spent some time talking about the fact that cerumen is a natural antibiotic, antifungal, auto body repair estimator, and moisturizer of the delicate external [...] Sensorine ural hearing loss of bilateral ears [id number] Active 2018 Sensorine ural hearing loss, bilateral ; Note: Date Diagnosed : 03/28/2019 3:34 PM (H90.3) Not Available [facility] 4 02:33:25 Pain of right temporoma ndibular joint [id number] 449834 Active 2019 Arthralgi a of right temporoma ndibular joint; Note: Date Diagnosed : 0 3:09 PM (M26.621) Not Available [facility] 4 02:33:24 Abrasion of skin of left ear [id number] 441312 Active 2018 Abrasion of left ear, initial encounter ; Note: Date Diagnosed : 03/28/2019 2:58 PM (S00.412A ) Not Available [facility] 4 02:33:25 Bilateral temporoma ndibular joint pain [id number] 407572 Active 2021 Arthralgi a of bilateral temporoma ndibular joint; Note: Date Diagnosed : 08/26/2021 4:41 PM (M26.623) Not Available [facility] 4 02:33:30 Foreign body in left ear [id number] 139951 Active 2018 Foreign body in left ear, initial encounter ; Note: Date Diagnosed : 03/28/2019 2:58 PM (T16.2XXA ) Not Available [facility] 4 02:33:35 Abnormal auditory perceptio n 83929835 Active 2023 Leonie wharton [place] - [facility] 4 10:43:01 Problem Notes None recorded. Procedures Surgical History Date Name Laterality Status Provider Name and Address Organization Details Recorded Time 05/28/20 24 Tympanometry - 95608 completed Leonie Peña [place] - [facility] 05/28/2024 10:42:54 Imaging Results Imaging Date [...] unkno wn, unspe cifie d;; Not Available [facility] 01:04:04 Medications Name Sig Start Date Stop Date Status Note LastModified by Organization Details LastModified Time cyclobenz aprine 10 mg tablet 2018 active Medicati on ID: [id number] D uration Value: 20 Brand Name: tish smith Send Method: E-Prescr ibed Sub s Allowed: subs OK Medic ationGen ericName : markieben zaprine Not Available Not Available Not Available [...] mg tablet 05/28 completed Medicati on ID: [id number] D uration Value: 30 Brand Name: atorvast [...] mg tablet 05/28 completed Medicati on ID: [id number] B rand Name: ciproflo xacin HCl Send [...] ear drops 05/28 completed Medicati on ID: [id number] B rand Name: ofloxaci n Send Method: [...] mg tablet 2018 active Medicati on ID: [id number] D uration Value: 30 Brand Name: metoclop [...] injection solution 05/28 completed Medicati on ID: [id number] B rand Name: cyanocob alamin (vitamin B-12) Se nd Method: E-Prescr ibed Sub s Allowed: subs OK Medic ationGen ericName : cyanocob alamin (vitamin B-12) Not Available Not Available Not Available esomepraz ole magnesium 40 mg capsule,d elayed release active Not Available Not Available Not Available omeprazol e 20 mg capsule,d elayed release 2018 active Medicati on ID: [id number] D uration Value: 30 Brand Name: omeprazo [...] completed Not Available Not Available Not Available [place] Saline 0.65 % nasal spray aerosol 05/28 completed Medicati on ID: [id number] B rand Name: [place] S end Method: E-Prescr ibed Sub s Allowed: subs OK Medic ationGen ericName : [place] Saline Not Available Not Available Not Available [...] pen injector 2018 active Medicati on ID: [id number] D uration Value: 28 Brand Name: Skyler villaseñor Send Method: E-Prescr ibed Sub s Allowed: subs OK Medic ationGen ericName : Skyler villaseñor Not Available Not Available Not Available Baqsimi [...] SNOMED-CT Code Diagnosis ICD10 Code Diagnosis Note [id number] GERARDO METZ PA-C [facility] [address] [address] 05/28/2024 10:13:26 05/28/2024 11:00:06 Abnormal auditory perception [id number] H93.299 Tympanomet ry: Right Ear:{{Type A* Type [...] a hermetic seal}} Bilateral temporomandibular joint pain [id number] 9280914 M26.623 Sensorineu ral hearing loss of bilateral ears [id number] H90.3 Health Concerns Section Related Observation LastModified by Organization Detai ls LastModified Time None Recorded Concern Status LastModified by Organization Details LastModified Time None Recorded Advance Directives Directive None Recorded Payers Insurance Date Sequence Insurance Name Policy Number Policy Gamino Covered Member ID Gamino Member ID Guarantor Name 05/28/2024 1 [facility] HE[facility] NET PLAN (MEDICAID HMO) JAIDEN Durham [id number] Mellisa Durham Notes Date Note Type Note [...] ear infections. She has hearing aids from [facility] that she recently sent for adjustments. She has not worn them in 2 years. Occasional buzzing sounds bilaterally. MERRILL IRIZARRY MD [address] [place] [address], [phone] - [facility] 05/28/2024 17:20:37 OBGyn Episode No OBEpisode recorded.
== END 2024-11-19 10:08 | disposition home or self-care (01) ==
LOC: HO.HPSW 09:30
PROVIDERS: PCP Internal Medicine; Visit Provider Nurse Practitioner Family
DX: J45.901 Unspecified asthma with (acute) exacerbation (principal); J30.89 Other allergic rhinitis
CPT/HCPCS: 99214

== ENCOUNTER → 2024-11-19 09:29 | Outpatient (BNVA) | payer OTHER, SELFPAY | PROVIDERS: PCP Internal Medicine; Visit Provider Nurse Practitioner Family | DX: J45.901 Unspecified asthma with (acute) exacerbation (principal); J30.89 Other allergic rhinitis | CPT/HCPCS: 99212 ==

== ENCOUNTER 2024-11-26 07:52 | Outpatient (REF) | payer OTHER, SELFPAY ==
--- NOTE | ~2024-11-26 | US_ITS ---
CLINICAL HISTORY: D25.9 - Leiomyoma of uterus, unspecified US female pelvis LMP:Postmenopausal. Technique: Ultrasound examination of the pelvis was performed with transabdominal and transvaginal technique for better visualization of the fibroids. Comparison: CT/SR - CT ABDOMEN PELVIS WO IV CON - 11/07/24 23:57 EDT US/SR - US PELVIC AND TRANSVAGINAL - 02/29/24 12:47 EDT US/SR - US PELVIC AND TRANSVAGINAL - 10/12/23 13:23 EDT US/SR - US PELVIC AND TRANSVAGINAL - 08/02/23 11:38 EST US/MT/SR - US PELVIC AND TRANSVAGINAL - 11/11/22 14:55 EDT Findings: Anteverted uterus measuring 6.1 x 2.9 x 4.0cm with fibroids. 0.9 x 0.7 x 0.8 cm subserosal fibroid at the anterior body, previously measuring 1.1 x 1.1 x 0.9 cm. 0.9 x 0.8 x 0.9 cm subserosal fibroid at the posterior uterine body, not seen on the prior study. Normal endometrial thickness of 0.2cm. The right ovary is normal in size for the patient's age, measuring 2.5 x 1.3 x 1.9cm, volume of 3.2mL. There is normal echogenicity. No lesions. The left ovary is normal in size for the patient's age, measuring 1.6 x 1.1 x 1.5cm, volume of 1.3mL. There is normal echogenicity. No lesions. No free fluid. Impression: No acute findings. Small uterine fibroids. This document has been electronically signed by: Pratima Davey MD on 11/26/2024 15:33:08
--- NOTE | ~2024-11-26 | CT_ITS ---
EXAMINATION: CT ABDOMEN AND PELVIS WITHOUT AND WITH CONTRAST CLINICAL INFORMATION: Unspecified hydronephrosis. COMPARISON: November 08, 2024. TECHNIQUE: Noncontrast CT of the abdomen and pelvis is performed followed by split bolus contrast-enhanced images using 85 mL Omnipaque 350 contrast. Postcontrast imaging is performed during the combined nephrogram and excretion phase. Sagittal and coronal reformatted images were obtained on the technologist's workstation for both the precontrast and postcontrast phases. This CT examination was performed using dose optimization techniques as appropriate, variously including the following: *Automated exposure control *Adjustment of mA and/or kV according to patient size (this includes techniques or standardized protocols for targeted exams where dose is matched to indication/reason for exam; i.e. extremities or head) *Use of iterative reconstruction technique. DLP: 760 mGy centimeter. FINDINGS: LUNG BASES: No acute airspace disease in the small fatps-db-mrjs. LIVER, GALLBLADDER, AND BILIARY TREE: Incomplete examination of the liver. Liver measures 18 cm with decreased enhancement pattern. Main portal vein and hepatic veins and intrahepatic portion of the IVC are patent. No gross focal lesion. Status post cholecystectomy. No extrahepatic biliary ductal dilatation. PANCREAS: No focal lesion. No peripancreatic fluid collection. No main pancreatic ductal dilatation. SPLEEN: 10 cm. No focal lesion. ADRENAL GLANDS: No nodular lesion. KIDNEYS AND URETERS: Right kidney: 1 mm faint calculus in the lower pole. No hydronephrosis. 1.7 cm exophytic nonenhancing or septated fluid density lesion in the posterior upper pole midportion junction. Extrarenal pelvis. No dilatation of the ureter. No enhancing mass. Normal urinary excretion into the collecting system. Left kidney: No hydronephrosis. No nephrolithiasis. No solid or cystic lesion. Normal enhancement pattern and normal urinary excretion into the collecting system. BLADDER: Fluid-filled. Normal ureteral jets bilaterally. GASTROINTESTINAL TRACT: Abundant stool. No intestinal obstruction pattern. No intestinal wall thickening. Appendix is normal. No pneumatosis intestinalis. No ascites. No pneumoperitoneum. ABDOMINAL WALL: Heterogeneous thickening in the umbilical's and extending in to the properitoneal fat. There is likely a peritoneal mesh in the periumbilical region. LYMPH NODES: Nonspecific prominent, mesenteric and retroperitoneum. VASCULAR: No aneurysm or dissection, abdominal aorta. Calcified plaque in the iliac arteries. PELVIC VISCERA: No gross enhancing mass. OSSEUS STRUCTURES: Multilevel thoracolumbar spondylosis. Posterior marginal osteophyte formation/calcifications of the intervertebral disc from the lower thoracic to the upper lumbar spine. No acute fracture or gross listhesis. No lytic or blastic lesions. Mild degenerative changes in the coxofemoral joints. Sclerosis and the sacroiliac joints. CT/CT urogram IMPRESSION: No hydronephrosis. 1 mm nonobstructing nephrolithiasis, right kidney. No gross renal mass. 1.7 cm Bosniak type I cyst, right kidney. Electronically signed by: Victor Hugo Moss MD 11/26/2024 12:22 PM EDT
--- OUTSIDE RECORDS SUMMARY | 2024-11-26 07:54 | XMS_ITS | Clinical Summary ---
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 Name Role Phone Unavailable Primary Care Provider [...] 2009 Imm-Zoster, Recombinant (1 of 2) 2014 Qme-YPBPE-30 ( season) 2024 021, 10/07/2020 Imm-Influenza (#1) 2024 04/04/2019, 05/30/2018 Alcohol and Drug Screen 07/03/2024 Depression Annual Screen 07/03/2024 Imm-DTaP/Tdap/Td (2 - Td or Tdap) 01/06/2030 020, 07/08/2015 Cervical Ablation/Cold-Knife Conization Discontinued Cervical Cryotherapy Discontinued Colposcopy Discontinued Endometrial Biopsy Discontinued Excision/Leep Discontinued HPV Genotyping Discontinued Vaginal Pap Discontinued Vulvoscopy Discontinued [facility] Subscriber Plan / Payer (Ef fective 2020-Present) Name:Mellisa Durham Relation to Subscriber:Self Name:Mellisa Durham Payer ID:[id number] Group ID:[id number] Type:Medicaid Address: [facility] [address] [place] [address]
[2024-11-26] MEDS: iohexoL 350 MG/ML 100 ML INFUS..BTL 85 ML IV (09:24)
== END 2024-11-26 07:53 | disposition home or self-care (01) ==
LOC: HO.CT 07:52
PROVIDERS: PCP Internal Medicine; Visit Provider Obstetrics & Gynecology
DX: D25.9 Leiomyoma of uterus, unspecified (principal); N13.30 Unspecified hydronephrosis
CPT/HCPCS: 74178; 76830; 76856; Q9967

== ENCOUNTER → 2024-11-26 07:57 | Outpatient (BNV) | payer OTHER, SELFPAY | PROVIDERS: PCP Internal Medicine; Visit Provider Radiology Diagnostic Radiology | DX: D25.9 Leiomyoma of uterus, unspecified (principal); N13.30 Unspecified hydronephrosis | CPT/HCPCS: 74178; 76830; 76856 ==

== ENCOUNTER 2024-12-11 10:27 | Outpatient (AMB) | payer OTHER, SELFPAY ==
--- NOTE | 2024-12-11 10:36 | A.OFFVIS_ITS ---
Intake Visit Reasons: 3 month/ [address]/ Labs Intake Note: Patient presents today for 3m follow up/CT/Labs * Imaging 11/26 Urology Medications: Vesicare Allergies to Antibiotic: PCN Blood Thinner: none PVR:0ml Rv Service Technician Required: Yes Rv Service Technician Services: Rv Service Technician Present Rv Service Technician Name: [id number] Accompanied by: Self / Same As Patient Allergies Penicillins Allergy (Mild, Verified 12/11/24 10:50) RASH/DYSPNEA canagliflozin [From Invokana] Adverse Reaction (Severe, Verified 12/11/24 10:50) uti metformin Adverse Reaction (Intermediate, Verified 12/11/24 10:50) stomach upset mounjaro Adverse Reaction (Intermediate, Uncoded 12/11/24 10:50) Abdominal Pain trulicity Adverse Reaction (Intermediate, Uncoded 12/11/24 10:50) Abdominal Pain Medication List - Last Reconciled 12/11/24 by SHAINA Messina acetone (urine) test (Ketone Urine Test strips) As directed albuterol sulfate 2.5 mg (3 mL) inhalation Q4-6H PRN albuterol sulfate 90 mcg/actuation 2 puffs inhalation Q4-6H PRN atorvastatin 40 mg PO DAILY blood sugar diagnostic (FreeStyle Lite Strips) As directed four times a day blood-glucose meter (FreeStyle Lite Meter kit) use as directed to test blood sugar 4x per day blood-glucose sensor (FreeStyle Sandra 3 Plus Sensor device) continuous sensor reapply every 15 days cholecalciferol (vitamin D3) (Vitamin D3) 25 mcg PO DAILY 90 days cyanocobalamin (vitamin B-12) 500 mcg sublingual DAILY 90 days esomeprazole magnesium (Nexium) 40 mg PO DAILY famotidine (Pepcid) 20 mg PO BEDTIME fluticasone propion-salmeterol 230-21 mcg/actuation (Advair HFA) 2 puffs inhalation BID fluticasone propionate 50 mcg/actuation (Flonase Allergy Relief) 1 spray intranasal DAILY PRN heating pads As directed hydrochlorothiazide 12.5 mg PO QAM incontinence pad, liner, disp Use 1 pad twice a day insulin aspart U-100 20 units (0.2 mL) subcut TID 90 days ketorolac 10 mg PO TID PRN lancets (FreeStyle Lancets) every 4 hours prn dispense as 32 gauge if avil Lantus Solostar U-100 Insulin (insulin glargine) 55 units (0.55 mL) subcut DAILY 90 days NS lidocaine 5% 1 patch topical DAILY PRN lidocaine HCl 2% 1 appl mucous membrane BID PRN 30 days lorazepam 0.5 mg PO BID-TID PRN montelukast 10 mg PO DAILY nebulizer accessories NEBULIZER FACE MASK ADULT, USE DIRECTED nebulizers (AeroEclipse II Nebulizer) As directed pen needle, diabetic (BD Sondra 2nd Gen Pen Needle) 4 times daily pioglitazone 45 mg PO DAILY 90 days sennosides (Natural Senna Laxative) 17.2 mg (2 x 8.6 mg) PO BEDTIME Shower Chair As directed simethicone 125 mg PO BID-QID PRN solifenacin (Vesicare) 5 mg PO DAILY PRN [toilet seat elevator As directed] zolpidem 5 mg PO BEDTIME HPI Comments Details: Mellisa is a pleasant 59-year-old Tajik-speaking female patient of Dr. Dorman. She has a past medical history of palpitations, type 2 diabetes, polyneuropathy, vitamin-B 12 deficiency, depression, dyslipidemia, umbilical hernia, arthritis, hearing loss, insomnia, anxiety, asthma, hypertension, polyarthralgia, and GERD. She presents to the office today for follow-up. Recent CT urogram results reviewed with the patient today 11/24 no hydronephrosis noted bilaterally. 1 mm nonobstructing nephrolithiasis, right kidney. No gross renal mass. 1.7 cm Bosniak type [address] had been ordered due to previous CT noted mild hydronephrosis however this has since resolved. We discussed potential causes of mild right hydronephrosis. She currently denies any bothersome urinary issues. She reports compliance with VESIcare and feels this has been extremely helpful in stress/urge incontinence she had been experiencing. In office urinalysis results reviewed with the patient today. PVR 0 mL. We did discussed importance of adequate hydration relation to nephrolithiasis as well as overall health and well-being. She denies hematuria, dysuria, foul smelling urine, changes to urinary stream, flank pain, fever, and or chills. She otherwise o ffers no other issues or concerns at this time. BUN: 10/24 22, 12/24 15, 03/26 22, 04/25 22, 04/25 19, 06/25 14, 09/24 20, 10/25 18, 10/25 16, 10/25 17, 11/24 17 Creatinine: 10/24 0.73, 12/24 0.81, 03/26 0.76, 04/25 0.81, 04/25 0.81, 06/25 0.85,09/24 0.80, 10/25 0.77, 10/25 0.81, 10/25 0.84, 11/24 0.92 PFSH Medical History Ear discomfort Palpitations Overweight Type 2 diabetes mellitus with diabetic polyneuropathy B12 deficiency DM2 (diabetes mellitus, type 2) Tubular adenoma Moderate recurrent major depression Dyslipidemia Umbilical hernia Edema Arthritis Ear pain FPC (current) use of insulin Pernicious anemia Insomnia Depression with anxiety Moderate asthma Essential hypertension Polyarthralgia GERD (gastroesophageal reflux disease) Type 2 diabetes mellitus with other diabetic neurological complication Diabetes Hearing loss Surgical History Hx of bilateral cataract extraction History of esophagogastroduodenoscopy (EGD) H/O colonoscopy History of cholecystectomy History of umbilical hernia repair History of foot surgery History of carpal tunnel release History of surgery on arm History of endometrial ablation History of tubal ligation Family History Mother Breast cancer Paternal Grandmother Breast cancer Brother Colon cancer Family/Other FH: mental illness Mental health disorder Father CAD (coronary artery disease) Social History Household Members: Children Housing: Apartment Are you a primary residential care facility manager to a significant other at home: No Do you presently have visiting nurse or other home services: Yes (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[employer]) Alcohol intake: never Patient Tobacco Use Status: Never used Tobacco e-Cigarette/Vaping Use: Never Used Second Hand Smoke Exposure: No service: No Current occupational status: disabled Current occupation: Right hand dominate Cognitive needs: No Hearing needs: No Vision needs: Yes Female Reproductive History Menstrual Age of Menarche: 11 Review of Systems Const Reports no additional complaints Eyes Reports no additional complaints ENT Reports no additional complaints Card Reports as per HPI Resp Reports as per HPI GI Reports as per HPI Reports as per HPI Musc Reports as per HPI Neuro Reports as per HPI Psych Reports as per HPI Endo Reports as per HPI Kranthi/Lymph Reports as per HPI Aller/Immun Reports as per HPI Physical Exam Const General: cooperative, healthy appearing, comfortable, no acute distress, well developed, alert and awake Orientation/consciousness: patient oriented x3 Limitations: language barrier HEENT Head: Yes normal to inspection, Yes normocephalic and Yes atraumatic Ears: hearing grossly normal bilaterally Eyes General: appearance normal, both eyes and all related structures Neck Neck: Yes normal visual inspection and Yes trachea midline Chest Chest palpation & inspection: normal inspection of the chest Resp Effort & Inspection: normal respiratory effort and able to speak in complete sentences Cardio Rate: regular rate GI Inspection: Yes normal to inspection General: Yes no CVA tenderness Back/Spine/Pelvis Back: no CVA tenderness Skin General skin exam: no rashes or lesions noted Neuro General: patient oriented x3 Extrem General: Yes normal to inspection Psych Appearance: grossly normal and well kempt Mental Status: mental status grossly normal Speech and movement: Normal speech and movement present and Clear speech present Affect: normal affect Attitude: cooperative Thought process: Normal thought process present Thought content: Normal thought content present Insight: Fair insight present (Psych) Judgement: Fair judgement present (Psych) Results AMB Urinalysis, Automated UA Leukoctes 0 Sharla/uL Last Edit by Chika Holt on 12/11/24 10:48 UA Nitrite Negative Last Edit by Chika Holt on 12/11/24 10:48 UA Urobilinogen 3.5 mg/dL Last Edit by Chkia Holt on 12/11/24 10:48 UA Protein 0 mg/dL Last Edit by Chika Holt on 12/11/24 10:48 UA pH 6.0 Last Edit by Chika Holt on 12/11/24 10:48 UA Blood 0 Heladio/uL Last Edit by Chika Holt on 12/11/24 10:48 UA Specific [place] 1.015 Last Edit by Chika Holt on 12/11/24 10:48 UA Ketone Negative Last Edit by Chika Holt on 12/11/24 10:48 UA Bilirubin 0 mg/dL Last Edit by Chika Holt on 12/11/24 10:48 UA Glucose 30 mg/dL Last Edit by Chika Holt on 12/11/24 10:48 Results Reviewed Results Reviewed: Laboratory Last Values Urine pH (Auto) 6.0 12/11/24 07:43 Specific [place] (Auto) 1.015 12/11/24 07:43 Urine Protein (Auto) 0 mg/dL 12/11/24 07:43 Glucose (UA)(Auto) 30 mg/dL 12/11/24 07:43 Urine Ketones (Auto) Negative 12/11/24 07:43 Urine Blood (Auto) 0 Heladio/uL 12/11/24 07:43 Urine Nitrite (Auto) Negative 12/11/24 07:43 Urine Bilirubin (Auto) 0 mg/dL 12/11/24 07:43 Urine Urobilinogen (Auto) 3.5 mg/dL 12/11/24 07:43 Leukocyte Esterase (Auto) 0 Sharla/uL 12/11/24 07:43 Date of Service: 11/26/24 Procedure(s): CT urogram FINDINGS: LUNG BASES: No acute airspace disease in the small okevl-so-wsoo. LIVER, GALLBLADDER, AND BILIARY TREE: Incomplete examination of the liver. Liver measures 18 cm with decreased enhancement pattern. Main portal vein and hepatic veins and intrahepatic portion of the IVC are patent. No gross focal lesion. Status post cholecystectomy. No extrahepatic biliary ductal dilatation. PANCREAS: No focal lesion. No peripancreatic fluid collection. No main pancreatic ductal dilatation. SPLEEN: 10 cm. No focal lesion. ADRENAL GLANDS: No nodular lesion. KIDNEYS AND URETERS: Right kidney: 1 mm faint calculus in the lower pole. No hydronephrosis. 1.7 cm exophytic nonenhancing or septated fluid density lesion in the posterior upper pole midportion junction. Extrarenal pelvis. No dilatation of the ureter. No enhancing mass. Normal urinary excretion into the collecting system. Left kidney: No hydronephrosis. No nephrolithiasis. No solid or cystic lesion. Normal enhancement pattern and normal urinary excretion into the collecting system. BLADDER: Fluid-filled. Normal ureteral jets bilaterally. GASTROINTESTINAL TRACT: Abundant stool. No intestinal obstruction pattern. No intestinal wall thickening. Appendix is normal. No pneumatosis intestinalis. No ascites. No pneumoperitoneum. ABDOMINAL WALL: Heterogeneous thickening in the umbilical's and extending in to the properitoneal fat. There is likely a peritoneal mesh in the periumbilical region. LYMPH NODES: Nonspecific prominent, mesenteric and retroperitoneum. VASCULAR: No aneurysm or dissection, abdominal aorta. Calcified plaque in the iliac arteries. PELVIC VISCERA: No gross enhancing mass. OSSEUS STRUCTURES: Multilevel thoracolumbar spondylosis. Posterior marginal osteophyte formation/calcifications of the intervertebral disc from the lower thoracic to the upper lumbar spine. No acute fracture or gross listhesis. No lytic or blastic lesions. Mild degenerative changes in the coxofemoral joints. Sclerosis and the sacroiliac joints. IMPRESSION: No hydronephrosis. 1 mm nonobstructing nephrolithiasis, right kidney. No gross renal mass. 1.7 cm Bosniak type I cyst, right kidney. Assessment & Plan Assessment & Plan (1) Hydronephrosis: Code(s): N13.30 - Unspecified hydronephrosis Category: Medical (2) Stress incontinence: Code(s): N39.3 - Stress incontinence (female) (male) Category: Medical Plan In office urinalysis results with the patient today; as noted above. PVR [address] urogram results reviewed with the patient today; as noted above. Continue VESIcare. Will continue with surveillance monitoring. We discussed importance of adequate hydration relation to nephrolithiasis as well as overall health and well-being. She currently denies any bothersome urinary issues or concerns. She reports be happy with current voiding parameters. Will obtain renal ultrasound in 6 months. Follow-up in 6 months with imaging and PVR; or sooner with any issues, concerns, and or questions. Orders: Orders AMB Post Void Residual by ultrasound Today N39.3 - Stress incontinence (female) (male) US renal BI 6 Months N20.0 - Calculus of kidney AMB Urinalysis Automated Today Z13.9 - Encounter for screening, unspecified Patient Instructions: The patient had an opportunity to ask questions regarding the treatment plan. All questions were answered. Physical exam, labs, and imaging were discussed and reviewed in detail. As well as risks, benefits, and discussion of treatment choices. No major barriers to understanding were identified. The patient expressed understanding and agreement with the above treatment plan. The patient was made aware they should contact our office by phone for worsening of their current condition, the appearance of new symptoms, or with any questions or concerns. Compliance is encouraged with any medications and follow up testing that is ordered. It is a privilege to be allowed the opportunity to participate in? your urological care.? Again, if you have any questions or concerns If you have any questions or concerns please do not hesitate to contact me. The office is [phone]. This note is constructed using voice recognition software. While every effort has been made to ensure accuracy mechanical shovel operator errors may have been included. Yours sincerely, SHAINA Messina Coding Level of Care Code Est Pt Level 3 (67069) Complex EM visit Add On G2211 Diagnoses Hydronephrosis N13.30 Stress incontinence N39.3
--- OUTSIDE RECORDS SUMMARY | 2024-12-11 11:53 | XMS_ITS | Clinical Summary ---
Author Organization [facility] Address [address] [place] [address] Care Team Providers Care Per Diem Rn Name Role Phone Unavailable Primary Care [...] 2009 Imm-Zoster, Recombinant (1 of 2) 2014 Ofo-VUMCL-27 ( season) 2024 021, 10/07/2020 Imm-Influenza (#1) 2024 04/04/2019, 05/30/2018 Alcohol and Drug Screen 07/03/2024 Depression Annual Screen 07/03/2024 Imm-DTaP/Tdap/Td (2 - Td or Tdap) 01/06/2030 020, 07/08/2015 Cervical Ablation/Cold-Knife Conization Discontinued Cervical Cryotherapy Discontinued Colposcopy Discontinued Endometrial Biopsy Discontinued Excision/Leep Discontinued HPV Genotyping Discontinued Vaginal Pap Discontinued Vulvoscopy Discontinued [facility] [place] [facility] Member Subscriber Plan / Payer (Ef fective 2020-Present) Name:Mellisa Durham Relation to Subscriber:Self Name:Mellisa Durham Payer ID:[id number] Group ID:[id number] Type:Medicaid Address: [facility] [address] [place] [address]
== END 2024-12-11 11:03 | disposition home or self-care (01) ==
LOC: HO.HUSH 10:28
PROVIDERS: PCP Internal Medicine; Visit Provider Nurse Practitioner Family
DX: N13.30 Unspecified hydronephrosis (principal); N39.3 Stress incontinence (female) (male); Z13.9 Encounter for screening, unspecified
CPT/HCPCS: 99213; G2211

== ENCOUNTER → 2024-12-11 10:27 | Outpatient (BNVA) | payer OTHER, SELFPAY | PROVIDERS: PCP Internal Medicine; Visit Provider Nurse Practitioner Family | DX: N39.3 Stress incontinence (female) (male) (principal); N13.30 Unspecified hydronephrosis | CPT/HCPCS: 81003; 99212 ==

== ENCOUNTER 2024-12-16 14:37 | Outpatient (AMB) | payer OTHER, SELFPAY ==
--- NOTE | 2024-12-16 14:44 | A.OFFPC_ITS ---
Vital Signs 12/16/24 14:45 Height 5 ft 2 in Weight 168 lb BMI 30.7 BP 126/72 Blood Pressure Location Lt brachial Position Sitting Intake Visit Reasons: b/l feet swelling Resistance Welder Required: No Accompanied by: Self / Same As Patient Allergies Penicillins Allergy (Mild, Verified 12/16/24 14:59) RASH/DYSPNEA canagliflozin [From Invokana] Adverse Reaction (Severe, Verified 12/16/24 14:59) uti metformin Adverse Reaction (Intermediate, Verified 12/16/24 14:59) stomach upset mounjaro Adverse Reaction (Intermediate, Uncoded 12/16/24 14:59) Abdominal Pain trulicity Adverse Reaction (Intermediate, Uncoded 12/16/24 14:59) Abdominal Pain Medication List - Last Reconciled 12/16/24 by Norma Bland MD acetone (urine) test (Ketone Urine Test strips) As directed albuterol sulfate 2.5 mg (3 mL) inhalation Q4-6H PRN albuterol sulfate 90 mcg/actuation 2 puffs inhalation Q4-6H PRN atorvastatin 40 mg PO DAILY blood sugar diagnostic (FreeStyle Lite Strips) As directed four times a day blood-glucose meter (FreeStyle Lite Meter kit) use as directed to test blood sugar 4x per day blood-glucose sensor (FreeStyle Sandra 3 Plus Sensor device) continuous sensor reapply every 15 days cholecalciferol (vitamin D3) (Vitamin D3) 25 mcg PO DAILY 90 days cyanocobalamin (vitamin B-12) 500 mcg sublingual DAILY 90 days esomeprazole magnesium (Nexium) 40 mg PO DAILY famotidine (Pepcid) 20 mg PO BEDTIME fluticasone propion-salmeterol 230-21 mcg/actuation (Advair HFA) 2 puffs inhalation BID fluticasone propionate 50 mcg/actuation (Flonase Allergy Relief) 1 spray intranasal DAILY PRN heating pads As directed hydrochlorothiazide 12.5 mg PO QAM incontinence pad, liner, disp Use 1 pad twice a day insulin aspart U-100 20 units (0.2 mL) subcut TID 90 days ketorolac 10 mg PO TID PRN lancets (FreeStyle Lancets) every 4 hours prn dispense as 32 gauge if avil Lantus Solostar U-100 Insulin (insulin glargine) 55 units (0.55 mL) subcut DAILY 90 days NS lidocaine 5% 1 patch topical DAILY PRN lidocaine HCl 2% 1 appl mucous membrane BID PRN 30 days lorazepam 0.5 mg PO BID-TID PRN montelukast 10 mg PO DAILY nebulizer accessories NEBULIZER FACE MASK ADULT, USE DIRECTED nebulizers (AeroEclipse II Nebulizer) As directed pen needle, diabetic (BD Sondra 2nd Gen Pen Needle) 4 times daily pioglitazone 45 mg PO DAILY 90 days sennosides (Natural Senna Laxative) 17.2 mg (2 x 8.6 mg) PO BEDTIME Shower Chair As directed simethicone 125 mg PO BID-QID PRN solifenacin (Vesicare) 5 mg PO DAILY PRN [toilet seat elevator As directed] zolpidem 5 mg PO BEDTIME Tobacco use date assessed: 07/30/24 Dental Screening Dental Screen Date: 07/30/24 HPI HPI Comments History of Present Illness Details The patient is a 59-year-old female presenting for management of diabetes mellitus and hypertension. The patient's diabetes mellitus has been monitored with an A1c level of 8.5 in October, which is above the target of 7 or less. She is under the care of an solderer electronic for this condition. The patient has a history of hypertension, which is currently well-controlled as indicated by her blood pressure readings. She has a known allergy to penicillin, which is important for medication management. The patient has a renal cyst and a history of nephrolithiasis, with a recent imaging showing a small stone in the right kidney and a 1.7 cm exophytic lesion in the posterior upper pole of the right kidney. The lesion is non-enhancing and not considered malignant. She experiences anxiety for which she is prescribed lorazepam. The patient is also managing gastroesophageal reflux disease with medications such as Nexium and Pepcid. Her hyperlipidemia is being treated with atorvastatin, and her LDL was last recorded at 64 mg/dL in October. [facility] Medical History (Updated 12/16/24 @ 15:10 by Norma Bland MD) Ear discomfort Palpitations Overweight Type 2 diabetes mellitus with diabetic polyneuropathy B12 deficiency DM2 (diabetes mellitus, type 2) Tubular adenoma Moderate recurrent major depression Dyslipidemia Umbilical hernia Edema Arthritis Ear pain group home (current) use of insulin Pernicious anemia Insomnia Depression with anxiety Moderate asthma Essential hypertension Polyarthralgia GERD (gastroesophageal reflux disease) Type 2 diabetes mellitus with other diabetic neurological complication Diabetes Hearing loss Surgical History Hx of bilateral cataract extraction History of esophagogastroduodenoscopy (EGD) H/O colonoscopy History of cholecystectomy History of umbilical hernia repair History of foot surgery History of carpal tunnel release History of surgery on arm History of endometrial ablation History of tubal ligation Family History Mother Breast cancer Paternal Grandmother Breast cancer Brother Colon cancer Family/Other FH: mental illness Mental health disorder Father CAD (coronary artery disease) Social History Household Members: Children Housing: Apartment Are you a primary team primary care physician to a significant other at home: No Do you presently have visiting nurse or other home services: 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 (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) Alcohol intake: never Patient Tobacco Use Status: Never used Tobacco e-Cigarette/Vaping Use: Never Used Second Hand Smoke Exposure: No service: No Current occupational status: disabled Current occupation: Right hand dominate Cognitive needs: No Hearing needs: No Vision needs: Yes Female Reproductive History Menstrual Age of Menarche: 11 Questionnaire Thrive Questionnaire Date Thrive assessed: 11/05/24 I am a: Patient What is your living situation today?: I have a steady place to live Within the past 12 months, did the food you bought not last and you didn't have the money to get more?: Sometimes True Within the past 12 months, did you worry whether your food would run out before you got money to buy more?: Sometimes True Do you have trouble paying for medicines?: No Do you have trouble getting transportation to medical appointments?: No Do you have trouble paying your heating and electricity bill?: No Do you have trouble taking care of your child, family member or friend?: No Do you have trouble with day-to-day activities such as bathing, preparing meals, shopping, managing finances, etc.?: No Are you currently unemployed and looking for a job?: No Are you interested in more education?: Yes Please select the resources that you would like help with: None Currently or been in a relationship where the following occur: I choose not to answer THRIVE Score: 2 LIANA-7 AMB Questionnaire LIANA-7 Date LIANA - 7 assessed: 07/30/24 Source: Developed by Drs. Hernandez Love, Rebecca Peacock, Kalyan Becker and colleagues, with an educational julio from [employer]. Review of Systems Const All systems reviewed & are unremarkable except as noted in HPI and below Card Denies chest pain at rest, Denies chest pain with activity, Denies edema, Denies irregular heart rhythm, Denies claudication, Denies dyspnea, Denies dyspnea on exertion, Denies orthopnea, Denies paroxysmal nocturnal dyspnea and Denies slow heart rate Resp Denies cough, Denies dyspnea and Denies dyspnea on exertion GI Denies abdominal pain, Denies change in bowel habits, Denies excessive flatus, Denies nausea and Denies vomiting Denies urinary incontinence, Denies urinary hesitancy and Denies urinary urgency Physical exam (Primary Care) Vital Signs: Last Vital Signs BP 126/72 12/16/24 14:45 BMI result Body Mass Index 30.7 Tobacco/Smoking Status: Tobacco use Status Tobacco use date assessed 07/30/24 12/16/24 14:49 Patient Tobacco Use Status Never used Tobacco 12/16/24 14:49 e-Cigarette/Vaping Use Never Used 12/16/24 14:49 Thrive Assessment: Date of Thrive Assessment Date Thrive assessed 11/05/24 12/16/24 14:49 Currently or been in a relationship where the following occur: I choose not to answer Resp Effort & Inspection: normal respiratory effort Auscultation: clear to auscultation bilaterally Cardio Jugular venous distension: no JVD Rate: regular rate Rhythm: regular rhythm Heart sounds: S1 normal heart sound present and S2 normal heart sound present Extrem General: Yes full ROM Coding Level of Care Code Est Pt Level 4 (79393) Complex EM visit Add On G2211 Diagnoses Leg edema R60.0 Hyperlipidemia LDL goal <70 E78.5 Type 2 diabetes mellitus with diabetic polyneuropathy, with long-term current use of insulin E11.42; Z79.4 Diabetes mellitus care home insulin use: with care home use Moderate recurrent major depression F33.1 Essential hypertension I10 Gastroesophageal reflux disease without esophagitis K21.9 Esophagitis presence: without esophagitis Time Spent (min) 25 Assessment & Plan Assessment & Plan (1) Leg edema: Code(s): R60.0 - Localized edema Category: Medical (2) Hyperlipidemia LDL goal <70: Code(s): E78.5 - Hyperlipidemia, unspecified Category: Medical (3) Type 2 diabetes mellitus with diabetic polyneuropathy: Code(s): E11.42 - Type 2 diabetes mellitus with diabetic polyneuropathy Category: Medical Qualifiers: Diabetes mellitus intermediate project manager insulin use: with intermediate project manager use Qualified Code(s): E11.42 - Type 2 diabetes mellitus with diabetic polyneuropathy; Z79.4 - terminal manager (current) use of insulin (4) Moderate recurrent major depression: Code(s): F33.1 - Major depressive disorder, recurrent, moderate Category: Medical (5) Essential hypertension: Code(s): I10 - Essential (primary) hypertension Category: Medical (6) GERD (gastroesophageal reflux disease): Code(s): K21.9 - Gastro-esophageal reflux disease without esophagitis Category: Medical Qualifiers: Esophagitis presence: without esophagitis Qualified Code(s): K21.9 - Gastro-esophageal reflux disease without esophagitis Plan The management plan for the patient's diabetes mellitus includes continued monitoring of her A1c levels with a target of 7 or less, under the guidance of her solderer electronic. For hypertension, the current management appears effective as her blood pressure is well-controlled. The renal cyst and nephrolithiasis will be monitored, with the non-malignant lesion in the right kidney being checked annually. The patient is advised to continue her current medications for anxiety and gastroesophageal reflux disease. For hyperlipidemia, atorvastatin will be continued, and compression stockings are recommended to manage any swelling. Patient was informed and verbally consented to the use of an ambient scribe for clinic note documentation during this visit. Medications: New [compression stockings knee high] As directed 2 ea 3RF R60.0 - Localized edema
[2024-12-16 14:45] VITALS: BP 126/72; BMI 30.7
--- OUTSIDE RECORDS SUMMARY | 2024-12-16 16:21 | XMS_ITS | Clinical Summary ---
Author Organization [facility] Address [address] [place] [address] Care Team Providers Care Process Chemist Name Role Phone Unavailable Primary Care Provider [...] 0 10/07/2020 Safety and Environment Answer Date Edl rded Safety 0 10/07/2020 Utilities Answer Date [...] 2009 Imm-Zoster, Recombinant (1 of 2) 2014 [id number] ( season) 2024 021, 10/07/2020 Imm-Influenza (#1) 2024 04/04/2019, 05/30/2018 Alcohol and Drug Screen 07/03/2024 Depression Annual Screen 07/03/2024 Imm-DTaP/Tdap/Td (2 - Td or Tdap) 01/06/2030 020, 07/08/2015 Cervical Ablation/Cold-Knife Conization Discontinued Cervical Cryotherapy Discontinued Colposcopy Discontinued Endometrial Biopsy Discontinued Excision/Leep Discontinued HPV Genotyping Discontinued Vaginal Pap Discontinued Vulvoscopy Discontinued Insurance [facility] [employer] [facility] Member Subscriber Plan / Payer (Ef fective 2020-Present) Name:Mellisa Durham Relation to Subscriber:Self Name:Mellisa Durham Payer ID:[id number] Group ID:[id number] Type:Medicaid Address: [address] [address] [place] [address]
== END 2024-12-16 15:10 | disposition home or self-care (01) ==
LOC: HO.HMCH 14:38
PROVIDERS: PCP Internal Medicine; Visit Provider Internal Medicine
DX: R60.0 Localized edema (principal); E11.42 Type 2 diabetes mellitus with diabetic polyneuropathy; Z79.4 Long term (current) use of insulin; F33.1 Major depressive disorder, recurrent, moderate; E78.5 Hyperlipidemia, unspecified; I10 Essential (primary) hypertension; K21.9 Gastro-esophageal reflux disease without esophagitis

== ENCOUNTER → 2024-12-16 14:37 | Outpatient (BNVA) | payer OTHER, SELFPAY | PROVIDERS: PCP Internal Medicine; Visit Provider Internal Medicine | DX: E11.42 Type 2 diabetes mellitus with diabetic polyneuropathy (principal); I10 Essential (primary) hypertension; N28.1 Cyst of kidney, acquired; E78.5 Hyperlipidemia, unspecified; R60.0 Localized edema; F33.1 Major depressive disorder, recurrent, moderate; K21.9 Gastro-esophageal reflux disease without esophagitis; Z79.4 Long term (current) use of insulin; Z87.442 Personal history of urinary calculi | CPT/HCPCS: 99212 ==

== ENCOUNTER 2024-12-19 10:43 | Outpatient (AMB) | payer OTHER, SELFPAY ==
--- NOTE | 2024-12-19 10:47 | MHC.OFFVIS ---
Vital Signs 12/19/24 10:51 Height 5 ft 2 in Weight 166 lb BMI 30.4 BP 124/76 Intake Visit Reasons: annual/us follow up Regional Controller Required: Yes Regional Controller Language: Administration Assistant Services: Regional Controller Present (in person) Regional Controller Name: Roseann GRIFFITH Information Interpreted: non-clinical & clinical Lean Coach: Lean Coach Present (Roseann GRIFFITH) Accompanied by: Self / Same As Patient Allergies Penicillins Allergy (Mild, Verified 12/19/24 10:52) RASH/DYSPNEA canagliflozin (From Invokana) Adverse Reaction (Severe, Verified 12/19/24 10:52) uti metformin Adverse Reaction (Intermediate, Verified 12/19/24 10:52) stomach upset mounjaro Adverse Reaction (Intermediate, Uncoded 12/19/24 10:52) Abdominal Pain trulicity Adverse Reaction (Intermediate, Uncoded 12/19/24 10:52) Abdominal Pain Post menopausal: Yes HPI Comments Details: Pelvic ultrasound in 11/24 showed the following: Anteverted uterus measuring 6.1 x 2.9 x 4.0cm with fibroids. 0.9 x 0.7 x 0.8 cm subserosal fibroid at the anterior body, previously measuring 1.1 x 1.1 x 0.9 cm. 0.9 x 0.8 x 0.9 cm subserosal fibroid at the posterior uterine body, not seen on the prior study. Normal endometrial thickness of 0.2cm. The right ovary is normal in size for the patient's age, measuring 2.5 x 1.3 x 1.9cm, volume of 3.2mL. There is normal echogenicity. No lesions. The left ovary is normal in size for the patient's age, measuring 1.6 x 1.1 x 1.5cm, volume of 1.3mL. There is normal echogenicity. No lesions. No free fluid. Last mammogram in 11/24 was BI-RADS 1 Last co testing in 10/23 was negative Last colonoscopy was done in 04/22, the recommendation was to repeat in 3-5 years [facility] Medical History Ear discomfort Palpitations Overweight Type 2 diabetes mellitus with diabetic polyneuropathy B12 deficiency DM2 (diabetes mellitus, type 2) Tubular adenoma Moderate recurrent major depression Dyslipidemia Umbilical hernia Edema Arthritis Ear pain alf (current) use of insulin Pernicious anemia Insomnia Depression with anxiety Moderate asthma Essential hypertension Polyarthralgia GERD (gastroesophageal reflux disease) Type 2 diabetes mellitus with other diabetic neurological complication Diabetes Hearing loss Surgical History Hx of bilateral cataract extraction History of esophagogastroduodenoscopy (EGD) H/O colonoscopy History of cholecystectomy History of umbilical hernia repair History of foot surgery History of carpal tunnel release History of surgery on arm History of endometrial ablation History of tubal ligation Family History Mother Breast cancer Paternal Grandmother Breast cancer Brother Colon cancer Family/Other FH: mental illness Mental health disorder Father CAD (coronary artery disease) Social History Household Members: Children Housing: Apartment Are you a primary transitional care manager to a significant other at home: No Do you presently have visiting nurse or other home services: 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 [employer]OW [employer]AT) Alcohol intake: never Patient Tobacco Use Status: Never used Tobacco e-Cigarette/Vaping Use: Never Used Second Hand Smoke Exposure: No service: No Current occupational status: disabled Current occupation: Right hand dominate Cognitive needs: No Hearing needs: No Vision needs: Yes Female Reproductive History Menstrual Age of Menarche: 11 control method: permanent sterilization Date of last pap smear: 10/25/22 Date of Mammogram: 11/09/24 Review of Systems Const All systems reviewed & are unremarkable except as noted in HPI and below Card Reports as per HPI Resp Reports as per HPI GI Reports as per HPI and Reports no additional complaints Reports as per HPI Physical Exam Vital Signs: Last Vital Signs BP 124/76 12/19/24 10:51 BMI result Body Mass Index 30.4 Const General: cooperative, healthy appearing and comfortable Chest Chest palpation & inspection: normal inspection of the chest and normal palpation of entire chest wall Breast/axilla inspection: normal inspection of the breasts and normal inspection of the axillae Breast/axilla palpation: normal palpation of the breasts, normal palpation of the axillae and no axillary lymphadenopathy Resp Effort & Inspection: normal respiratory effort Auscultation: clear to auscultation bilaterally Percussion: percussion normal Cardio Palpation: normal PMI Rate: regular rate Rhythm: regular rhythm Heart sounds: no murmurs and no rubs Peripheral pulses: Peripheral pulses 2+ throughout GI Inspection: Yes normal to inspection Palpation (GI): Soft to palpation, nontender, no guarding, not rigid and No hepatosplenomegaly present Percussion: Yes normal to percussion Auscultation: normal bowel sounds Rectal Exam - Female: deferred General: Yes bladder normal to palpation External Female Exam: No lesion Speculum Exam - Vagina: normal appearance of the vagina, normal palpation, normal vaginal discharge and not erythematous Speculum Exam - Cervix: normal appearance of the cervix and normal palpation Bimanual exam- vagina & uterus: normal bimanual exam, normal palpation, uterine size normal, bladder normal to palpation, consistency normal and normal palpation Bimanual Exam- Adnexa, other: normal adnexae, no masses and no tenderness Assessment & Plan Assessment & Plan (1) Well woman exam: Code(s): Z01.419 - Encounter for gynecological examination (general) (routine) without abnormal findings Category: Medical Plan: Co testing not indicated. Counseled the patient about the recommended dietary allowance of 1200 mg of Calcium & 600 IU of vitamin D. Instructions given the patient to schedule next screening Mammogram in 11/25. The patient was referred to GI for screening colonoscopy . The patient was instructed to perform monthly self-breast exams and schedule annual exam in a year. All questions answered and the patient verbalized understanding. (2) Uterine myoma: Code(s): D25.9 - Leiomyoma of uterus, unspecified Category: Medical Plan: Discussed with the patient the findings on pelvic ultrasound & the risk of myosarcoma; in addition reviewed with the patient that malignancy and pre malignancy cannot be ruled out without hysterectomy for pathological evaluation ; furthermore, explained to the patient the limitation of pelvic ultrasound and endometrial biopsy in the setting. Discussed with the patient the options of treatment including expectant management versus hysterectomy; the pros and cons, risks benefits of each approach were discussed with the patient including the fact that in cases of myosarcoma, surgical treatment can lead to early diagnosis and positively affects the prognosis; after further discussion, the patient decided to proceed with expectant management. Will repeat pelvic ultrasound periodically. Instructions given to patient to call in case any of the following occurs: pressure symptoms, abnormal uterine bleeding, pelvic pain; and to schedule a 12 months pelvic ultrasound (order placed) and a follow-up appointment . All questions answered, the patient verbalized understanding and agreed with the plan . Orders: Orders US pelvic and transvaginal 1 Year D25.9 - Leiomyoma of uterus, unspecified Referrals Gastroenterology Referral Z12.11 - Encounter for screening for malignant neoplasm of colon Coding Level of Care Code Est Pt Prev Care 40-64y(04639) Diagnoses Well woman exam Z01.419 Uterine myoma D25.9
[2024-12-19 10:51] VITALS: BP 124/76; BMI 30.4
--- OUTSIDE RECORDS SUMMARY | 2024-12-19 12:11 | XMS_ITS | Clinical Summary ---
Author Organization [facility] Address [address] [place] [address] Care Team Providers Care Vp Information Technology Name Role Phone Unavailable Primary Care Provider [...] 2009 Imm-Zoster, Recombinant (1 of 2) 2014 [id number] ( season) 2024 021, 10/07/2020 Imm-Influenza (#1) 2024 04/04/2019, 05/30/2018 Alcohol and Drug Screen 07/03/2024 Depression Annual Screen 07/03/2024 Imm-DTaP/Tdap/Td (2 - Td or Tdap) 01/06/2030 020, 07/08/2015 Cervical Ablation/Cold-Knife Conization Discontinued Cervical Cryotherapy Discontinued Colposcopy Discontinued Endometrial Biopsy Discontinued Excision/Leep Discontinued HPV Genotyping Discontinued Vaginal Pap Discontinued Vulvoscopy Discontinued [facility] [employer] [facility] Member Subscriber Plan / Payer (Ef fective 2020-Present) Name:Mellisa Durham Relation to Subscriber:Self Name:Mellisa Durham Payer ID:[id number] Group ID:[id number] Type:Medicaid Address: [facility] [address] [place] [address]
== END 2024-12-19 11:10 | disposition home or self-care (01) ==
LOC: HO.HWS 10:43
PROVIDERS: PCP Internal Medicine; Visit Provider Obstetrics & Gynecology
DX: Z01.419 Encounter for gynecological examination (general) (routine) without abnormal findings (principal); D25.9 Leiomyoma of uterus, unspecified
CPT/HCPCS: 99396; 99459

== ENCOUNTER → 2024-12-19 10:43 | Outpatient (BNVA) | payer OTHER, SELFPAY | PROVIDERS: PCP Internal Medicine; Visit Provider Obstetrics & Gynecology | DX: Z01.419 Encounter for gynecological examination (general) (routine) without abnormal findings (principal); D25.9 Leiomyoma of uterus, unspecified | CPT/HCPCS: 99396 ==

== ENCOUNTER 2025-01-31 08:40 | Outpatient (REF) | payer OTHER, SELFPAY ==
--- OUTSIDE RECORDS SUMMARY | 2025-01-31 08:52 | XMS_ITS | Clinical Summary ---
[facility] Address [address] [place] [address] Care Team Providers Care Senior Game Advisor Name Role Phone Unavailable Primary Care Provider [...] DTaP,Tdap,and Td Vaccines (1 - Tdap) 11/29/1983 Cervical Cancer Screening: P ap Smear 1985 Pneumococcal Vaccine: 50+ Ye ars (1 of 1 - PCV) 2014 Zoster Vaccines (1 of 2) 2014 COVID-19 Vaccine ( - 2023-2 5 season) 2024 Depression Screening 07/03/2024 Influenza Vaccine (#1) 2025 RSV Immunization Adult Patie nts (1 - 1-dose 75+ series) 11/29/2039 HIB Vaccines Aged Out No longer eligi ble based on patient's age to complete this topic HPV Vaccines Aged Out No longer eligi ble based on patient's age to complete this topic Hepatitis A Vaccines Aged Out No long er eligible based on patient's age to complete this topic Hepatitis B Vaccines Aged Out No long er eligible [...]
--- OUTSIDE RECORDS SUMMARY | 2025-01-31 08:52 | XMS_ITS | Clinical Summary ---
Author Organization [facility] Address [address] [place] [address] Care Team Providers Care Inspector Final Assembly Conveyor Line Name Role Phone Unavailable Primary Care Provider [...] 2009 Imm-Zoster, Recombinant (1 of 2) 2014 [id number] ( season) 2024 021, 10/07/2020 Imm-Influenza (#1) 2024 04/04/2019, 05/30/2018 Alcohol and Drug Screen 07/03/2024 Depression Annual Screen 07/03/2024 Imm-DTaP/Tdap/Td (2 - Td or Tdap) 01/06/2030 020, 07/08/2015 Cervical Ablation/Cold-Knife Conization Discontinued Cervical Cryotherapy Discontinued Colposcopy Discontinued Endometrial Biopsy Discontinued Excision/Leep Discontinued HPV Genotyping Discontinued Vaginal Pap Discontinued Vulvoscopy Discontinued [facility] [employer] [facility] Member Subscriber Plan / Payer (Ef fective 2020-Present) Name:Mellisa Durham Relation to Subscriber:Self Name:Mellisa Durham Payer ID:[id number] Group ID:[id number] Type:Medicaid Address: [facility] [address] [place] [address]
[2025-01-31 10:20] LABS: Appearance Urine Clear; Glucose Urine UA 100 mg/dL (Negative); PH 5.5 (5.0-9.0); Specific Gravity - Urine 1.025 (1.005-1.025)
[2025-01-31 10:41] LABS: Anion Gap 12 (12-20); Blood Urea Nitrogen 17 mg/dL (9-16); Calcium 9.3 mg/dL (8.4-10.2); Carbon Dioxide 32 mmol/L (22-29); Chloride 101 mmol/L (96-108); Estimated Glomerular Filt Rate > 60; Potassium 4.0 mmol/L (3.3-5.1); Sodium 141 mmol/L (135-145)
[2025-01-31 11:24] LABS: Total Protein Urine Random 9 mg/dL (<12)
== END 2025-01-31 08:41 | disposition home or self-care (01) ==
LOC: HO.LAB 08:40
PROVIDERS: PCP Internal Medicine; Visit Provider Internal Medicine Hypertension Specialist
DX: N13.30 Unspecified hydronephrosis (principal); R80.9 Proteinuria, unspecified
CPT/HCPCS: 36415; 80048; 81003; 82570; 84156

== ENCOUNTER 2025-02-06 14:14 | Outpatient (AMB) | payer OTHER, SELFPAY ==
[2025-02-06 14:17] VITALS: BP 110/62; PULSE 98; O2SAT 98; BMI 30.5
--- NOTE | 2025-02-06 14:17 | HO.NEPHOV ---
Vital Signs 02/06/25 14:17 Height 5 ft 2 in Weight 167 lb BMI 30.5 BP 110/62 Blood Pressure Location Lt brachial Position Sitting Pulse 98 Pulse Source Pulse Oximeter Pulse Oximetry (%) 98 Oxygen Delivery Method Room Air Intake Visit Reasons: FU - Pt request-Conf Underwater Photographer Required: Yes Underwater Photographer Name: norman [id number] Accompanied by: Self / Same As Patient Allergies Penicillins Allergy (Mild, Verified 02/06/25 14:19) RASH/DYSPNEA canagliflozin (From Invokana) Adverse Reaction (Severe, Verified 02/06/25 14:19) uti metformin Adverse Reaction (Intermediate, Verified 02/06/25 14:19) stomach upset mounjaro Adverse Reaction (Intermediate, Uncoded 12/19/24 10:52) Abdominal Pain trulicity Adverse Reaction (Intermediate, Uncoded 12/19/24 10:52) Abdominal Pain Medication List - Last Reconciled 02/06/25 by Kris Rausch MD acetone (urine) test (Ketone Urine Test strips) As directed albuterol sulfate 2.5 mg (3 mL) inhalation Q4-6H PRN albuterol sulfate 90 mcg/actuation 2 puffs inhalation Q4-6H PRN atorvastatin 40 mg PO DAILY blood sugar diagnostic (FreeStyle Lite Strips) As directed four times a day blood-glucose meter (FreeStyle Lite Meter kit) use as directed to test blood sugar 4x per day blood-glucose sensor (FreeStyle Sandra 3 Plus Sensor device) continuous sensor reapply every 15 days cholecalciferol (vitamin D3) (Vitamin D3) 25 mcg PO DAILY 90 days [compression stockings knee high As directed] cyanocobalamin (vitamin B-12) 500 mcg sublingual DAILY 90 days esomeprazole magnesium (Nexium) 40 mg PO DAILY famotidine (Pepcid) 20 mg PO BEDTIME fluticasone propion-salmeterol 230-21 mcg/actuation (Advair HFA) 2 puffs inhalation BID fluticasone propionate 50 mcg/actuation (Flonase Allergy Relief) 1 spray intranasal DAILY PRN heating pads As directed hydrochlorothiazide 12.5 mg PO QAM 90 days incontinence pad, liner, disp Use 1 pad twice a day insulin aspart U-100 20 units (0.2 mL) subcut TID 90 days ketorolac 10 mg PO TID PRN lancets (FreeStyle Lancets) every 4 hours prn dispense as 32 gauge if avil Lantus Solostar U-100 Insulin (insulin glargine) 55 units (0.55 mL) subcut DAILY 90 days NS lidocaine 5% 1 patch topical DAILY PRN lidocaine HCl 2% 1 appl mucous membrane BID PRN 30 days lorazepam 0.5 mg PO BID-TID PRN montelukast 10 mg PO DAILY nebulizer accessories NEBULIZER FACE MASK ADULT, USE DIRECTED nebulizers (AeroEFirecommse II Nebulizer) As directed pen needle, diabetic (BD Sondra 2nd Gen Pen Needle) 4 times daily pioglitazone 45 mg PO DAILY 90 days sennosides (Natural Senna Laxative) 17.2 mg (2 x 8.6 mg) PO BEDTIME sertraline mg PO DAILY PRN Shower Chair As directed simethicone 125 mg PO BID-QID PRN solifenacin (Vesicare) 5 mg PO DAILY PRN [toilet seat elevator As directed] zolpidem 5 mg PO BEDTIME HPI Comments Details: 58-year-old man with a history of longstanding diabetes mellitus for almost 23 years has been referred for evaluation of renal function. She has been noting some foaming during urination. There is a question of proteinuria. Serum creatinine has been stable and less than 1.0. She tells me his blood sugar has been suboptimally controlled recent A1c was 8.3%. Currently she is being treated by endocrinology. She has been taking hydrochlorothiazide 12.5 mg. This was given because of generalized edema. She admits to eating excessive salty food. 01/05/2024. Overall doing well. Recently had vaginal fungal infection. She was treated with miconazole. She is on SGLT2 inhibitors. 04/11/24 Recently had COVID ;Also had UTI with and treated with antibiotics 07/08/23 Recently in ER;CT showed mild right hydro;Blood sugar is sub optimal 02/06/25 c/o Back pain on and off urination with foaming [facility] Medical History Ear discomfort Palpitations Overweight Type 2 diabetes mellitus with diabetic polyneuropathy B12 deficiency DM2 (diabetes mellitus, type 2) Tubular adenoma Moderate recurrent major depression Dyslipidemia Umbilical hernia Edema Arthritis Ear pain [facility] (current) use of insulin Pernicious anemia Insomnia Depression with anxiety Moderate asthma Essential hypertension Polyarthralgia GERD (gastroesophageal reflux disease) Type 2 diabetes mellitus with other diabetic neurological complication Diabetes Hearing loss Surgical History Hx of bilateral cataract extraction History of esophagogastroduodenoscopy (EGD) H/O colonoscopy History of cholecystectomy History of umbilical hernia repair History of foot surgery History of carpal tunnel release History of surgery on arm History of endometrial ablation History of tubal ligation Family History Mother Breast cancer Paternal Grandmother Breast cancer Brother Colon cancer Family/Other FH: mental illness Mental health disorder Father CAD (coronary artery disease) Social History Household Members: Children Housing: Apartment Are you a primary personal care worker to a significant other at home: No Do you presently have visiting nurse or other home services: Yes ([employer]) Alcohol intake: never Patient Tobacco Use Status: Never used Tobacco e-Cigarette/Vaping Use: Never Used Second Hand Smoke Exposure: No service: No Current occupational status: disabled Current occupation: Right hand dominate Cognitive needs: No Hearing needs: No Vision needs: Yes Female Reproductive History Menstrual Age of Menarche: 11 Physical Exam Vital Signs: Last Vital Signs Pulse 98 02/06/25 14:17 BP 110/62 02/06/25 14:17 Pulse Ox 98 02/06/25 14:17 Oxygen Delivery Method Room Air 02/06/25 14:17 BMI result Body Mass Index 30.5 Const General: comfortable; No acute distress Orientation/consciousness: patient oriented x3 Eyes General: appearance normal, both eyes and all related structures Visual Hines: normal visual hines by confrontation Neck Neck: Yes supple and Yes no JVD Resp Effort & Inspection: normal respiratory effort and respiratory effort not decreased Cardio Palpation: no palpable S3 and no palpable S4 Heart sounds: no rubs GI Inspection: Yes normal to inspection Palpation (GI): Soft to palpation Auscultation: normal bowel sounds General: Yes no CVA tenderness Back/Spine/Pelvis Back: no CVA tenderness Skin General skin exam: no petechiae and no purpura Neuro General: patient oriented x3 and no focal motor deficits Extrem General: No clubbing and No edema Results Reviewed Nephrology Results: Sodium, (135-145) 141 mmol/L 01/31/25 Potassium, (3.3-5.1) 4.0 mmol/L 01/31/25 Chloride, (96-108) 101 mmol/L 01/31/25 Carbon Dioxide, (22-29) 32 mmol/L H 01/31/25 BUN, (9-16) 17 mg/dL H 01/31/25 Creatinine, (0.5-1.4) 0.71 mg/dL 01/31/25 Calcium, (8.4-10.2) 9.3 mg/dL 01/31/25 Urine Protein, (Neg-Trace) Negative mg/dL 01/31/25 Urine Creatinine 140.34 mg/dL 01/31/25 Renal US 12/19/23 Assessment & Plan Assessment & Plan (1) Type 2 diabetes mellitus with diabetic polyneuropathy: Code(s): E11.42 - Type 2 diabetes mellitus with diabetic polyneuropathy Category: Medical Qualifiers: Diabetes mellitus ocean transportation intermediary insulin use: with group home use Qualified Code(s): E11.42 - Type 2 diabetes mellitus with diabetic polyneuropathy; Z79.4 - [facility] (current) use of insulin (2) Proteinuria: Code(s): R80.9 - Proteinuria, unspecified Category: Medical (3) Hydronephrosis: Code(s): N13.30 - Unspecified hydronephrosis Category: Medical Plan . Middle-aged woman with longstanding history of diabetes mellitus. At present renal function stable with a creatinine of 0.9 mg/dL. In the past she did not have any significant proteinuria. No significant proteinuria based on urine protein creatinine ratio. The blood pressure well controlled. Encouraged her to stand on a low-sodium diet. Needs to increase p.o. fluid intake. Concur with other management and agree with using SGLT2 inhibitors. The glycosuria is due to the use of SGLT2 inhibitors and no further intervention is needed. CT shows 1 mm stone and bosniack ! cyst Follow with Urology Orders: Orders Total Protein Urine Random 1 Year N20.0 - Calculus of kidney UA and rflx microscopic 1 Year N20.0 - Calculus of kidney Creatinine Urine 1 Year N20.0 - Calculus of kidney Coding Level of Care Code Est Pt Level 4 (27841) Diagnoses Type 2 diabetes mellitus with diabetic polyneuropathy, with long-term current use of insulin E11.42; Z79.4 Diabetes mellitus group home insulin use: with group home use Proteinuria R80.9 Hydronephrosis N13.30
--- OUTSIDE RECORDS SUMMARY | 2025-02-06 14:19 | XMS_ITS | Clinical Summary ---
[facility] [address] [place] [address] Care Team Providers Care Special Warfare Operator Name Role Phone Unavailable Primary Care [...]
--- OUTSIDE RECORDS SUMMARY | 2025-02-06 14:19 | XMS_ITS | Clinical Summary ---
Author Organization [facility] Address [address] [place] [address] Care Team Providers Care Manager Psychology Name Role Phone Unavailable Primary Care Provider [...] 2009 Imm-Zoster, Recombinant (1 of 2) 2014 [id number] ( season) 2024 021, 10/07/2020 Imm-Influenza (#1) 2024 04/04/2019, 05/30/2018 Alcohol and Drug Screen 07/03/2024 Depression Annual Screen 07/03/2024 Imm-DTaP/Tdap/Td (2 - Td or Tdap) 01/06/2030 020, 07/08/2015 Cervical Ablation/Cold-Knife Conization Discontinued Cervical Cryotherapy Discontinued Colposcopy Discontinued Endometrial Biopsy Discontinued Excision/Leep Discontinued HPV Genotyping Discontinued Vaginal Pap Discontinued Vulvoscopy Discontinued [facility] Member Subscriber Plan / Payer (Ef fective 2020-Present) Name:Mellisa Durham Relation to Subscriber:Self Name:Mellisa Durham Payer ID:[id number] Group ID:[id number] Type:Medicaid Address: [facility] [address] [place] [address]
== END 2025-02-06 14:30 | disposition home or self-care (01) ==
LOC: HO.HKA 14:15
PROVIDERS: PCP Internal Medicine; Visit Provider Internal Medicine Hypertension Specialist
DX: E11.42 Type 2 diabetes mellitus with diabetic polyneuropathy (principal); Z79.4 Long term (current) use of insulin; R80.9 Proteinuria, unspecified; N13.30 Unspecified hydronephrosis
CPT/HCPCS: 99214

== ENCOUNTER → 2025-02-06 14:14 | Outpatient (BNVA) | payer OTHER, SELFPAY | PROVIDERS: PCP Internal Medicine; Visit Provider Internal Medicine Hypertension Specialist | DX: E11.42 Type 2 diabetes mellitus with diabetic polyneuropathy (principal); Z79.4 Long term (current) use of insulin; R80.9 Proteinuria, unspecified; N13.30 Unspecified hydronephrosis; N20.0 Calculus of kidney | CPT/HCPCS: 99212 ==

== ENCOUNTER 2025-02-11 12:05 | Outpatient (REF) | payer OTHER, SELFPAY ==
--- OUTSIDE RECORDS SUMMARY | 2025-02-11 12:59 | XMS_ITS | Clinical Summary ---
[facility] [address] [place] [address] Care Team Providers Care Cylindrical Mixer Name Role Phone Unavailable Primary Care Provider [...]
--- OUTSIDE RECORDS SUMMARY | 2025-02-11 12:59 | XMS_ITS | Clinical Summary ---
Author Organization [facility] Address [address] [place] [address] Care Team Providers Care Supervisory Lifeguard Name Role Phone Unavailable Primary Care Provider [...] HIV Screening 11/29/1979 Hypertension Screening (#1) 1982 Cervical Cancer Screening 1985 Pap Smear 1985 Breast Cancer Screening (Mammogram) 2004 CT Colonography 2009 Colonoscopy 2009 Colorectal Cancer Screening 2009 FIT/gFOBT 2009 Fecal DNA 2009 Flexible Sigmoidoscopy 2009 Imm-Zoster, Recombinant (1 o f 2) 2014 Imm-Pneumococcal 50+ (2 of 2 - PCV) 05/30/2019 05/30/2018, 05/12/2006 [id number] (3 - season) 2024 11/04/2020, 10/07/2020 Alcohol and Drug Screen 07/03/2024 Depression Annual Screen 07/03/2024 Imm-Influenza (#1) 2025 04/04/2019, 05/30/2018 Imm-DTaP/Tdap/Td (2 - Td or Tdap) 01/06/2030 01/07/2020, 07/08/2015 Cervical Ablation/Cold-Knife Conization Discontinued Cervical Cryotherapy Discontinued Colposcopy Discontinued Endometrial Biopsy Discontinued Excision/Leep Discontinued HPV Genotyping Discontinued Imm-Hepatitis B Aged Out No longer el igible based on patient's age to complete this topic Vaginal Pap Discontinued Vulvoscopy Discontinued Insurance Class [employer] PLAN Member Subscriber Plan / Payer (Ef fective 2020-Present) Name:Mellisa Durham Relation to Subscriber:Self Name:Mellisa Durham Payer ID:[id number] Group ID:[id number] Type:Medicaid Address: [facility] [address] [place] [address]
--- NOTE | 2025-02-12 09:12 | MHC.AU.HA3 ---
Hearing Instrument Follow-Up- Binaural Date of Visit: 02/12/25 Right Ear: Model Yang, Color, Serial Number: Dylan Pickard [id number]-R, #[id number] Tools Developer Repair Warranty: 05/04/2023 Tools Developer Loss and Damage Warranty: 07/14/2022 [facility] Service Plan: exp Battery Size: Rechargeable Homicide Squad Captain/Slim Tube: 1 M Earmold/Dome/CShell/SlimTip:Small Vented Type of Wax Guard: Cerushield Dispensed By: [facility] Date of Fittin05/08/2019 Left Ear: Yang, Model, Color, Serial Number: Dylan Corrales0-R, #[id number] Tools Developer Repair Warranty: 05/04/2023 Tools Developer Loss and Damage Warranty: 07/14/2022 [facility] Service Plan: exp Battery Size: Rechargeable Homicide Squad Captain/Slim Tube: 1 M Earmold/Dome/CShell/SlimTip: Small Vented Type of Wax Guard: Cerushield Dispensed By: [facility] Date of Fittin05/08/2019 Follow-Up Summary: LOBATO d/o 02/11 c/o R not charging. Both aids and sprinkler installer dropped off, no cord. Cleaned hearing aids (2), replaced domes (2) [place] wax [place] (2[place] [id number] units. Right aid still not working. Found right aid to be in stock mode. Removed from stock mode. Both aids no charging normally with pt sprinkler installer and office cord. Listening check positive. Checked for firmware update, aids are up to date. Data logging shows only .5 hour average hearing aid wear. Recommendations: Recommendations: Hearing instrument follow-up or maintenance as needed. Diagnosis Code(s): Primary Diagnosis: H90.3 Bilateral Sensorineural Hearing Loss Signature: Provider: Song Valdes, [facility]
== END 2025-02-11 12:06 | disposition home or self-care (01) ==
LOC: HO.HAP 12:05
PROVIDERS: Visit Provider Internal Medicine
DX: Z13.89 Encounter for screening for other disorder (principal)

== ENCOUNTER 2025-02-12 10:57 | Outpatient (REF) | payer OTHER, SELFPAY ==
--- OUTSIDE RECORDS SUMMARY | 2025-02-12 11:51 | XMS_ITS | Clinical Summary ---
[facility] Address [address] [place] [address] Care Team Providers Care Air Tucker Name Role Phone Unavailable Primary Care Provider [...]
--- OUTSIDE RECORDS SUMMARY | 2025-02-12 11:51 | XMS_ITS | Clinical Summary ---
Author Organization [facility] Address [address] [place] [address] Care Team Providers Care Multimedia Teacher Name Role Phone Unavailable Primary Care Provider [...] of 2 - PCV) 05/30/2019 05/30/2018, 05/12/2006 [id number] (3 - season) 2024 11/04/2020, 10/07/2020 Alcohol [...] topic Vaginal Pap Discontinued Vulvoscopy Discontinued Insurance [employer] PLAN Member Subscriber Plan / Payer (Ef fective 2020-Present) Name:Mellisa Durham Relation to Subscriber:Self Name:Mellisa Durham Payer ID:[id number] Group ID:[id number] Type:Medicaid Address: [facility] [address] [place] [address]
== END 2025-02-12 10:58 | disposition home or self-care (01) ==
LOC: HO.HAP 10:57
PROVIDERS: Visit Provider Student in an Organized Health Care Education/Training Program
DX: H90.3 Sensorineural hearing loss, bilateral (principal)
CPT/HCPCS: 92593; 99499

== ENCOUNTER → 2025-02-18 23:59 | Outpatient (BNV) | payer OTHER, SELFPAY | PROVIDERS: PCP Internal Medicine; Visit Provider Internal Medicine | DX: F41.9 Anxiety disorder, unspecified (principal); J45.909 Unspecified asthma, uncomplicated; I10 Essential (primary) hypertension | CPT/HCPCS: G0179 ==

== ENCOUNTER → 2025-02-23 16:02 | Outpatient (BNV) | payer OTHER, SELFPAY | PROVIDERS: Visit Provider Radiology Diagnostic Radiology | DX: R06.02 Shortness of breath (principal) | CPT/HCPCS: 71045 ==

== ENCOUNTER 2025-02-23 16:34 | Emergency (ER) | payer OTHER, SELFPAY ==
--- NOTE | ~2025-02-23 | XR_ITS ---
CLINICAL HISTORY: SOB 1 view chest x-ray. Comparison: CR - XR CHEST 2V - 07/30/24 12:44 EST Findings: Normal lung volumes. Lungs are clear. No pneumothorax or pleural effusion. Heart size normal. No passive venous congestion. No midline shift or tracheal deviation. No acute fracture. Impression: 1. No acute cardiopulmonary disease. This document has been electronically signed by: Tha Dixon MD on 02/23/2025 17:44:21
[2025-02-23 16:41] VITALS: BP 132/63; PULSE 91; RESP 18; TEMP 35.9; O2SAT 97; BMI 29.6
--- NOTE | 2025-02-23 16:56 | PC.NURSE ---
spanish interpreter/translator services Nicolás Ndiaye [phone]
[2025-02-23 18:02] VITALS: RESP 20; O2SAT 99
--- NOTE | 2025-02-23 18:02 | PC.NURSE ---
expiratory wheezing bilaterally, patient denies chest pain.
--- NOTE | 2025-02-23 18:34 | ED_ITS ---
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 Patient reports for about 1 week she has had increasing cough with wheezing and shortness of breath. She has tried her albuterol inhaler and nebulizers without any improvement She endorses coughing without fever or chills pain Denies any chest pain or leg swelling Denies any abdominal pain, nausea vomiting. Denies any sick contacts or recent travel Related Data Home Medications ?Medication ?Instructions ?Recorded ?Confirmed zolpidem 5 mg tablet 5 mg PO BEDTIME 04/16/2001/24 lorazepam 0.5 mg tablet 0.5 mg PO BID-TID PRN Anxiet y 08/26/24 02/06/25 atorvastatin 40 mg tablet 40 mg PO DAILY 08/28/2401/24 fluticasone propionate 50 1 spray intranasal DAILY PRN 08/28/24 02/06/25 mcg/actuation nasal Allergy Symptoms spray,suspension (Flonase Allergy Relief) lidocaine 5 % topical patch 1 patch topical DAILY PRN Pain 08/28/24 02/06/25 solifenacin 5 mg tablet (Vesicare) 5 mg PO DAILY PRN B ladder Spasms 08/28/24 02/06/25 sertraline 100 mg tablet mg PO DAILY PRN 02/06/2501/24 Previous Rx's ?Medication ?Instructions ?Recorded heating pads #1 ea 05/31/22 nebulizer accessories #1 ea 11/30/22 blood-glucose meter (FreeStyle #1 ea 12/21/22 Lite Meter kit) nebulizers (AeroEclipse II #1 ea 03/30/23 Nebulizer) incontinence pad, liner, disp #60 ea 10/07/23 toilet seat elevator #1 ea 10/23/23 lidocaine HCl 2 % mucosal solution 1 appl mucous membr ane BID PRN 01/17/24 pain 30 days #100 mL Shower Chair #1 ea 02/05/24 acetone (urine) test (Ketone Urine #50 ea 04/25/24 Test strips) blood sugar diagnostic (FreeStyle #150 ea 04/25/24 Lite Strips) lancets 28 gauge (FreeStyle #100 ea 04/25/24 Lancets) albuterol sulfate 2.5 mg/3 mL 2.5 mg (3 mL) inhalation Q4-6H PRN 04/29/24 (0.083 %) solution for nebulization bronchospasm #75 m L ketorolac 10 mg tablet 10 mg PO TID PRN pain #10 ta bs 07/01/24 blood-glucose sensor (FreeStyle #2 ea 08/21/24 Sandra 3 Plus Sensor device) pen needle, diabetic 32 gauge x #200 ea 08/21/24 (BD Sondra 2nd Gen Pen Needle) esomeprazole magnesium 40 mg 40 mg PO DAILY #30 caps 0 09/23/24 capsule,delayed release (Nexium) famotidine 20 mg tablet (Pepcid) 20 mg PO BEDTIME #90 tabs 09/23/24 simethicone 125 mg capsule 125 mg PO BID-QID PRN abdom inal 09/23/24 distention #120 caps Lantus Solostar U-100 Insulin 100 55 unit (0.55 mL) rivero bcut DAILY 90 10/16/24 unit/mL (3 mL) subcutaneous pen days #49.5 mL (insulin glargine) insulin aspart U-100 100 unit/mL 20 unit (0.2 mL) subc ut TID 10/16/24 (3 mL) subcutaneous pen days #54 mL fluticasone propionate 230 2 puff inhalation BID #12 g william 11/19/24 mcg-salmeterol 21 mcg/actuation HFA inhaler (Advair HFA) cholecalciferol (vitamin D3) 25 25 mcg PO DAILY 90 day s #90 tabs 12/15/24 mcg (1,000 unit) tablet (Vitamin D3) pioglitazone 45 mg tablet 45 mg PO DAILY 90 days #90 t abs 12/15/24 compression stockings knee high #2 ea 12/16/24 montelukast 10 mg tablet 10 mg PO DAILY #90 tabs 12/02 12/25 hydrochlorothiazide 12.5 mg tablet 12.5 mg PO QAM 90 d ays #90 tabs 01/08/25 cyanocobalamin (vitamin B-12) 500 500 mcg sublingual D AILY 90 days 01/26/25 mcg disintegrating #90 tabs tablet,sublingual albuterol sulfate 90 mcg/actuation 2 puff inhalation Q 4-6H PRN 02/14/25 aerosol inhaler shortness of breath or wheez ing #8.5 grams levalbuterol tartrate 45 2 puff inhalation Q4-6H PRN 02/14/25 mcg/actuation aerosol inhaler shortness of breath 30 d ays #15 (Xopenex HFA) grams sennosides 8.6 mg tablet (senna) 17.2 mg (2 x 8.6 mg) PO BEDTIME 02/17/25 PRN for constipation #180 tabs azithromycin 250 mg tablet 250 mg PO DAILY 4 days #4 t abs 02/23/25 prednisone 20 mg tablet 40 mg (2 x 20 mg) PO DAILY # 8 tabs 02/23/25 Allergies Allergy/AdvReac Type Severity Reaction Status Date / Time Penicillins Allergy Mild RASH/DYSPNE Verified 02/23/25 16:41 A canagliflozin (From Invokana) AdvReac Severe uti Verified 02/23/25 16:41 metformin AdvReac Intermediate stomach Verified 02/23/25 16:41 upset mounjaro AdvReac Intermediate Abdominal Uncoded 12/19/24 10:52 Pain trulicity AdvReac Intermediate Abdominal Uncoded 12/19/24 10:52 Pain Review of Systems Constitutional: Constitutional: Denies body ache(s), Denies chills and Denies fever(s) Eyes: Eyes: Denies irritation ENT: Denies dizziness Cardiovascular: Cardiovascular: Denies chest pain, Reports dyspnea and Denies dyspnea on exertion Respiratory: Respiratory: Reports change in phlegm color, Reports chest congestion, Reports cough, Denies pain with cough, Reports dyspnea, Denies dyspnea on exertion and Reports wheezing Gastrointestinal: Gastrointestinal: Denies abdominal pain, Denies nausea and Denies vomiting Musculoskeletal: Musculoskeletal: Denies back pain Integumentary/Breasts: Skin/Breast: Denies rash Neurologic: Denies dizziness Allergic/Immunologic: Allergic/Immunologic: Reports wheezing PMFSH Past Medical History Medical History Ear discomfort Palpitations Overweight Type 2 diabetes mellitus with diabetic polyneuropathy B12 deficiency DM2 (diabetes mellitus, type 2) Tubular adenoma Moderate recurrent major depression Dyslipidemia Umbilical hernia Edema Arthritis Ear pain intermediate (current) use of insulin Pernicious anemia Insomnia Depression with anxiety Moderate asthma Essential hypertension Polyarthralgia GERD (gastroesophageal reflux disease) Type 2 diabetes mellitus with other diabetic neurological complication Diabetes Hearing loss Surgical History Hx of bilateral cataract extraction History of esophagogastroduodenoscopy (EGD) H/O colonoscopy History of cholecystectomy History of umbilical hernia repair History of foot surgery History of carpal tunnel release History of surgery on arm History of endometrial ablation History of tubal ligation Family History Family History Mother Breast cancer Paternal Grandmother Breast cancer Brother Colon cancer Family/Other FH: mental illness Mental health disorder Father CAD (coronary artery disease) Social History Social History Household Members: Children Housing: Apartment Are you a primary pet care technician to a significant other at home: No Do you presently have visiting nurse or 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 home 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) Alcohol intake: never Patient Tobacco Use Status: Never used Tobacco e-Cigarette/Vaping Use: Never Used Second Hand Smoke Exposure: No Advance Directives: No Advance Directives Information Provided: No Do you have a plan to hurt others: No Plan service: No Current occupational status: disabled Current occupation: Right hand dominate Cognitive needs: No Hearing needs: No Vision needs: Yes Physical Exam Vital Signs: Vital Signs: Last Vital Signs Temp 98.7 F 02/23/25 19:00 Pulse 76 02/23/25 19:00 Resp 20 02/23/25 19:00 BP 132/68 02/23/25 19:00 Pulse Ox 95 02/23/25 19:00 O2 Del Method Room Air 02/23/25 19:00 BMI result Body Mass Index 29.6 Const: General: healthy appearing, comfortable, no acute distress, alert and awake Nutritional Appearance: well nourished Orientation/consciousness: patient oriented x3 HEENT: Head: Yes normocephalic and Yes atraumatic Eyes: Eyelids: Yes eyelids normal Conjunctivae: conjunctivae normal Sclerae: sclerae normal Corneas: corneas normal Pupils: Equal, round and reactive pupils present EOM: EOMs intact bilaterally Neck: Neck: Yes full ROM Resp: Effort & Inspection: able to speak in complete sentences and not labored Cardio: Rate: regular rate Rhythm: regular rhythm Skin: General skin exam: elasticity normal Neuro: General: patient oriented x3 Cranial nerves: Yes Equal, round and reactive pupils present and Yes Bilaterally intact EOM present Cognition (Neuro): normal cognition Medications Administered Discontinued Medications Generic Name Dose Route Start Last Admin Trade Name Veronica PRN Reason Stop Dose Admin Azithromycin 500 mg 02/23/25 18:29 02/23/25 18:35 Azithromycin 500 Mg Tablet PO 02/23/25 18:30 500 mg ONCE ONE Administration Albuterol Sulfate 2.5 mg/ 0 mg 02/23/25 18:40 02/23/25 18:43 Albuterol/Ipratropium 3 ml INHALE 02/23/25 18:41 1 dose ONCE ONE Administration Prednisone 40 mg 02/23/25 18:29 02/23/25 18:35 Prednisone 20 Mg Tablet PO 02/23/25 18:30 40 mg ONCE ONE Administration Medical Decision Making Medical Decision Making MDM Narrative: 59 old female with a past medical history as above presents for evaluation of wheezing, cough and shortness of breath. She does carry a diagnosis of asthma, she is a nonsmoker. A chest x-ray was ordered which was unremarkable. The patient is not hypoxic, tachypneic or febrile. The patient likely has any asthma exacerbation possibly triggered by allergies. We will treat with a nebulizer in the department and discharge her with a course of azithromycin and prednisone. The patient does not have any risk factors for PE. And Wells score is 0 Differential Diagnosis Differential Diagnoses: The differential diagnosis associated with the presentation includes Acute asthma exacerbation Bronchitis Upper respiratory infection Pneumonia Influenza COVID-19 Independent Interpretation I performed an independent interpretation of an: Plain X-Ray Interpretation: No focal infiltrates Radiology Impression Discussion of test interpretation with radiology: I have reviewed the radiologist's reading. Radiologist Impression: Findings: Normal lung volumes. Lungs are clear. No pneumothorax or pleural effusion. Heart size normal. No passive venous congestion. No midline shift or tracheal deviation. No acute fracture. Impression: 1. No acute cardiopulmonary disease. This document has been electronically signed by: Tha Dixon MD on 02/23/2025 17:44:21 Discharge Plan Discharge Clinical Impression: Asthma exacerbation Patient Disposition: Home, Self-Care Instructions: Asthma (ED) Additional Instructions: Your chest x-ray was clear. I recommend taking prednisone 40 mg daily for the next 4 days starting tomorrow, and azithromycin 250 mg daily starting tomorrow also for 4 days. You may also benefit from an [id number] allergy medication. You should monitor your blood glucose closely while taking prednisone Follow-up with your primary doctor, return for new or worsening symptoms Prescriptions: New azithromycin 250 mg tablet 250 mg PO DAILY 4 Days Qty: 4 0RF Rx Instructions: start on day 2 of therapy prednisone 20 mg tablet 40 mg PO DAILY Qty: 8 0RF No Action (DME) heating pads Pad See Rx Instructions .Route Qty: 1 0RF Rx Instructions: As directed (DME) blood-glucose meter [FreeStyle Lite Meter] Kit See Rx Instructions .ROUTE .MEDSUPPLY Qty: 1 0RF Rx Instructions: use as directed to test blood sugar 4x per day (DME) nebulizers [AeroEclipse II Nebulizer] Misc See Rx Instructions .Route Qty: 1 0RF Rx Instructions: As directed (DME) incontinence pad, liner, disp Pad See Rx Instructions .Route Qty: 60 11RF Rx Instructions: Use 1 pad twice a day (DME) Shower Chair Misc See Rx Instructions .Route Qty: 1 0RF Rx Instructions: As directed albuterol sulfate 2.5 mg /3 mL (0.083 %) solution for nebulization 2.5 mg inhalation Q4-6H PRN (Reason: bronchospasm) Qty: 75 0RF esomeprazole magnesium [Nexium] 40 mg capsule,delayed release(DR/EC) 40 mg PO DAILY Qty: 30 5RF famotidine [Pepcid] 20 mg tablet 20 mg PO BEDTIME Qty: 90 3RF simethicone 125 mg capsule 125 mg PO BID-QID PRN (Reason: abdominal distention) Qty: 120 3RF cholecalciferol (vitamin D3) [Vitamin D3] 25 mcg (1,000 unit) tablet 25 mcg PO DAILY 90 Days Qty: 90 3RF pioglitazone 45 mg tablet 45 mg PO DAILY 90 Days Qty: 90 2RF montelukast 10 mg tablet 10 mg PO DAILY Qty: 90 3RF hydrochlorothiazide 12.5 mg tablet 12.5 mg PO QAM 90 Days Qty: 90 2RF cyanocobalamin (vitamin B-12) 500 mcg tablet,disintegrating 500 mcg sublingual DAILY 90 Days Qty: 90 1RF albuterol sulfate 90 mcg/actuation HFA aerosol inhaler 2 puff inhalation Q4-6H PRN (Reason: shortness of breath or wheezing) Qty: 8.5 0RF levalbuterol tartrate [Xopenex HFA] 45 mcg/actuation HFA aerosol inhaler 2 puff inhalation Q4-6H PRN (Reason: shortness of breath) 30 Days Qty: 15 1RF sennosides [senna] 8.6 mg tablet 17.2 mg PO BEDTIME PRN (Reason: for constipation) Qty: 180 1RF ketorolac 10 mg tablet 10 mg PO TID PRN (Reason: pain) Qty: 10 0RF Rx Instructions: Do not use this medication with any other NSAIDs atorvastatin 40 mg tablet 40 mg PO DAILY lidocaine 5 % adhesive patch,medicated 1 patch topical DAILY PRN (Reason: Pain) Rx Instructions: leave on most painful area for up to 12 hrs fluticasone propionate [Flonase Allergy Relief] 50 mcg/actuation spray,suspension 1 spray intranasal DAILY PRN (Reason: Allergy Symptoms) Rx Instructions: administer into each nostril solifenacin [Vesicare] 5 mg tablet 5 mg PO DAILY PRN (Reason: Bladder Spasms) zolpidem 5 mg tablet 5 mg PO BEDTIME (DME) toilet seat elevator See Rx Instructions .Route .MEDSUPPLY Qty: 1 0RF Rx Instructions: As directed (DME) nebulizer accessories [facility] See Rx Instructions .Route Qty: 1 0RF Rx Instructions: NEBULIZER FACE MASK ADULT, USE DIRECTED lidocaine HCl 2 % solution 1 appl mucous membrane BID PRN (Reason: pain) 30 Days Qty: 100 0RF (DME) Ketone Urine Test Strip See Rx Instructions .Route Qty: 50 5RF Rx Instructions: As directed (DME) FreeStyle Lite Strips Strip See Rx Instructions .ROUTE .MEDSUPPLY Qty: 150 11RF Rx Instructions: As directed four times a day (DME) lancets [FreeStyle Lancets] 28 gauge misc See Rx Instructions .ROUTE .MEDSUPPLY Qty: 100 11RF Rx Instructions: every 4 hours prn dispense as 32 gauge if avil insulin glargine [Lantus Solostar U-100 Insulin] 100 unit/mL (3 mL) insulin pen 55 unit subcut DAILY 90 Days Qty: 49.5 3RF insulin aspart U-100 100 unit/mL (3 mL) insulin pen 20 unit subcut TID 90 Days Qty: 54 4RF lorazepam 0.5 mg tablet 0.5 mg PO BID-TID PRN (Reason: Anxiety) (DME) FreeStyle Sandra 3 Plus Sensor Device See Rx Instructions .ROUTE .MEDSUPPLY Qty: 2 11RF Rx Instructions: continuous sensor reapply every 15 days (DME) pen needle, diabetic [BD Sondra 2nd Gen Pen Needle] 32 gauge x 5/32 needle See Rx Instructions .ROUTE .MEDSUPPLY Qty: 200 6RF Rx Instructions: 4 times daily fluticasone propion-salmeterol [Advair HFA] 230-21 mcg/actuation HFA aerosol inhaler 2 puff inhalation BID Qty: 12 6RF (DME) compression stockings knee high 30 mmHg See Rx Instructions .Route .MEDSUPPLY Qty: 2 3RF Rx Instructions: As directed sertraline 100 mg tablet PO DAILY PRN Interventions: ED Discharge Assessment Last Done: 02/23/25 19:00 Print Language: South Korean
[2025-02-23 18:43] VITALS: PULSE 76; RESP 22; O2SAT 98
[2025-02-23] MEDS: Albuterol Sulfate 2.5 MG, Albuterol/Iprat 2.5/0.5MG 3 ML 3 ML INHALE (18:43)
--- OUTSIDE RECORDS SUMMARY | 2025-02-23 18:54 | XMS_ITS | Clinical Summary ---
Author Organization [facility] Address [address] [place] [address] Care Team Providers Care Biology Intern Name Role Phone Unavailable Primary Care Provider [...]
--- OUTSIDE RECORDS SUMMARY | 2025-02-23 18:54 | XMS_ITS | Clinical Summary ---
Author Organization [facility] Address [address] [place] [address] Care Team Providers Care Platform Operations Director Name Role Phone Unavailable Primary Care [...] of 2 - PCV) 05/30/2019 05/30/2018, 05/12/2006 [id number] (3 - season) 2024 11/04/2020, 10/07/2020 Alcohol [...] topic Vaginal Pap Discontinued Vulvoscopy Discontinued Insurance Scripted PLAN Member Subscriber Plan / Payer (Ef fective 2020-Present) Name:Mellisa Durham Relation to Subscriber:Self Name:Mellisa Durham Payer ID:[id number] Group ID:[id number] Type:Medicaid Address: [facility] [address] [place] [address]
[2025-02-23 19:00] VITALS: BP 132/68; PULSE 76; RESP 20; TEMP 37.1; O2SAT 95
== END 2025-02-23 19:17 | disposition home or self-care (01) ==
PROVIDERS: Emergency Provider Emergency Medicine; PCP Internal Medicine
DX: J45.901 Unspecified asthma with (acute) exacerbation (principal); R05.9 Cough, unspecified; R06.02 Shortness of breath
CPT/HCPCS: 71045; 94640; 99284

== ENCOUNTER 2025-02-24 10:47 | Outpatient (AMB) | payer OTHER, SELFPAY ==
--- NOTE | 2025-02-24 10:49 | MHC.OFFVIS ---
Vital Signs 02/24/25 11:01 Height 5 ft 2 in Weight 166 lb BMI 30.4 BP 121/59 L Blood Pressure Location Rt brachial Position Sitting Pulse 85 Intake Visit Reasons: new hernia ( Edgar pt ) Intake Note: Patient called to schedule today's appointment concerned with new umbilical hernia. Noticed bulge since last week. Patient reports umbilical/ mid lower abdomen lump that feels tender with pressure. 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 Accompanied by: Self / Same As Patient Allergies Penicillins Allergy (Mild, Verified 02/24/25 10:59) RASH/DYSPNEA canagliflozin (From Invokana) Adverse Reaction (Severe, Verified 02/24/25 10:59) uti metformin Adverse Reaction (Intermediate, Verified 02/24/25 10:59) stomach upset mounjaro Adverse Reaction (Intermediate, Uncoded 02/24/25 10:59) Abdominal Pain trulicity Adverse Reaction (Intermediate, Uncoded 02/24/25 10:59) Abdominal Pain Medication List - Last Reconciled 02/24/25 by Ronald Bundy MD acetone (urine) test (Ketone Urine Test strips) As directed albuterol sulfate 2.5 mg (3 mL) inhalation Q4-6H PRN albuterol sulfate 90 mcg/actuation 2 puffs inhalation Q4-6H PRN atorvastatin 40 mg PO DAILY azithromycin 250 mg PO DAILY 4 days blood sugar diagnostic (FreeStyle Lite Strips) As directed four times a day blood-glucose meter (FreeStyle Lite Meter kit) use as directed to test blood sugar 4x per day blood-glucose sensor (FreeStyle Sandra 3 Plus Sensor device) continuous sensor reapply every 15 days cholecalciferol (vitamin D3) (Vitamin D3) 25 mcg PO DAILY 90 days [compression stockings knee high As directed] cyanocobalamin (vitamin B-12) 500 mcg sublingual DAILY 90 days esomeprazole magnesium (Nexium) 40 mg PO DAILY famotidine (Pepcid) 20 mg PO BEDTIME fluticasone propion-salmeterol 230-21 mcg/actuation (Advair HFA) 2 puffs inhalation BID fluticasone propionate 50 mcg/actuation (Flonase Allergy Relief) 1 spray intranasal DAILY PRN heating pads As directed hydrochlorothiazide 12.5 mg PO QAM 90 days incontinence pad, liner, disp Use 1 pad twice a day insulin aspart U-100 20 units (0.2 mL) subcut TID 90 days ketorolac 10 mg PO TID PRN lancets (FreeStyle Lancets) every 4 hours prn dispense as 32 gauge if avil Lantus Solostar U-100 Insulin (insulin glargine) 55 units (0.55 mL) subcut DAILY 90 days NS levalbuterol tartrate 45 mcg/actuation (Xopenex HFA) 2 puffs inhalation Q4-6H PRN 30 days lidocaine HCl 2% 1 appl mucous membrane BID PRN 30 days lorazepam 0.5 mg PO BID-TID PRN montelukast 10 mg PO DAILY nebulizer accessories NEBULIZER FACE MASK ADULT, USE DIRECTED nebulizers ([employer] II Nebulizer) As directed pen needle, diabetic (BD Sondra 2nd Gen Pen Needle) 4 times daily pioglitazone 45 mg PO DAILY 90 days prednisone 40 mg (2 x 20 mg) PO DAILY sennosides (senna) 17.2 mg (2 x 8.6 mg) PO BEDTIME PRN sertraline mg PO DAILY PRN Shower Chair As directed simethicone 125 mg PO BID-QID PRN solifenacin (Vesicare) 5 mg PO DAILY PRN [toilet seat elevator As directed] zolpidem 5 mg PO BEDTIME HPI HPI new hernia ( Edgar pt ): Details: [age] year old female here for a question of a new hernia above the umbilicus. She says she started noticing this last week. She denies any significant pain. She denies GI complaints She has a history of a repair of an umbilical hernia with mesh with Dr. Hernández in October,. The incision was infraumbilical then. She is a known diabetic. Her last hemoglobin A1c was 8.5. [facility] Medical History (Updated 02/24/25 @ 11:13 by Ronald Bundy MD) Supraumbilical hernia Ear discomfort Palpitations Overweight Type 2 diabetes mellitus with diabetic polyneuropathy B12 deficiency DM2 (diabetes mellitus, type 2) Tubular adenoma Moderate recurrent major depression Dyslipidemia Umbilical hernia Edema Arthritis Ear pain FDC (current) use of insulin Pernicious anemia Insomnia Depression with anxiety Moderate asthma Essential hypertension Polyarthralgia GERD (gastroesophageal reflux disease) Type 2 diabetes mellitus with other diabetic neurological complication Diabetes Hearing loss Surgical History Hx of bilateral cataract extraction History of esophagogastroduodenoscopy (EGD) H/O colonoscopy History of cholecystectomy History of umbilical hernia repair History of foot surgery History of carpal tunnel release History of surgery on arm History of endometrial ablation History of tubal ligation Family History Mother Breast cancer Paternal Grandmother Breast cancer Brother Colon cancer Family/Other FH: mental illness Mental health disorder Father CAD (coronary artery disease) Social History Household Members: Children Housing: Apartment Are you a primary long term acute care registered nurse to a significant other at home: No Do you presently have visiting nurse or 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) Alcohol intake: never Patient Tobacco Use Status: Never used Tobacco e-Cigarette/Vaping Use: Never Used Second Hand Smoke Exposure: No service: No Current occupational status: disabled Current occupation: Right hand dominate Cognitive needs: No Hearing needs: No Vision needs: Yes Female Reproductive History Menstrual Age of Menarche: 11 Review of Systems Const Denies chills and Denies fever(s) Card Denies chest pain, Denies dyspnea and Denies dyspnea on exertion Resp Denies cough, Denies dyspnea and Denies dyspnea on exertion GI Denies hematochezia and Denies change in bowel habits Denies hematuria Musc Denies back pain and Denies limited range of motion Neuro Denies focal weakness and Denies convulsions Psych Denies depression and Denies mood swings Physical Exam Vital Signs: Last Vital Signs Pulse 85 02/24/25 11:01 BP 121/59 L 02/24/25 11:01 BMI result Body Mass Index 30.4 Const General: comfortable and no acute distress Orientation/consciousness: patient oriented x3 Neck Neck: Yes no lymphadenopathy Resp Auscultation: clear to auscultation bilaterally Cardio Rhythm: regular rhythm GI Other: Vague mobile mass, obvious with Valsalva on the area above the umbilicus, to the right of the midline, about 2.5 cm Palpation (GI): Soft to palpation, nontender and no guarding Neuro General: patient oriented x3 Assessment & Plan Assessment & Plan (1) Supraumbilical hernia: Code(s): K43.9 - Ventral hernia without obstruction or gangrene Category: Medical Plan: She has this supraumbilical mass, reducible and obvious with Valsalva that seems to be consistent with a supraumbilical hernia. I am going to send her for a CAT scan to define this and to plan surgical repair. I did explain to her the technique of repair with possible mesh placement. I reviewed the risks, benefits, and alternatives I will discuss this more in detail after her CAT scan. She seems to understand the plan and is comfortable with this. I am also going to check her hemoglobin A1c. Orders: Orders CT abdomen pelvis wo IV con Today K43.9 - Ventral hernia without obstruction or gangrene Hemoglobin A1c Today K43.9 - Ventral hernia without obstruction or gangrene Coding Level of Care Code Est Pt Level 3 (40391) Diagnoses Supraumbilical hernia K43.9
[2025-02-24 11:01] VITALS: BP 121/59; PULSE 85; BMI 30.4
--- OUTSIDE RECORDS SUMMARY | 2025-02-24 12:01 | XMS_ITS | Clinical Summary ---
Author Organization [facility] Address [address] [place] [address] Care Team Providers Care Financial Planning Adviser Name Role Phone Unavailable Primary Care Provider [...] of 2 - PCV) 05/30/2019 05/30/2018, 05/12/2006 [id number] (3 - season) 2024 11/04/2020, 10/07/2020 Alcohol [...] topic Vaginal Pap Discontinued Vulvoscopy Discontinued Insurance [employer] PLAN Member Subscriber Plan / Payer (Ef fective 2020-Present) Name:Mellisa Durham Relation to Subscriber:Self Name:Mellisa Durham Payer ID:[id number] Group ID:[id number] Type:Medicaid Address: [facility] [address] [place] [address]
--- OUTSIDE RECORDS SUMMARY | 2025-02-24 12:01 | XMS_ITS | Clinical Summary ---
[facility] Organization [facility] Address [address] [place] [address] Care Team Providers Care It Application Architect Name Role Phone Unavailable Primary Care Provider [...]
== END 2025-02-24 11:13 | disposition home or self-care (01) ==
LOC: HO.HGS 10:48
PROVIDERS: Visit Provider Surgery
DX: K43.9 Ventral hernia without obstruction or gangrene (principal)
CPT/HCPCS: 99213

== ENCOUNTER → 2025-02-24 10:47 | Outpatient (BNVA) | payer OTHER, SELFPAY | PROVIDERS: Visit Provider Surgery | DX: K43.9 Ventral hernia without obstruction or gangrene (principal) | CPT/HCPCS: 99212 ==

== ENCOUNTER 2025-03-04 09:28 | Outpatient (AMB) | payer OTHER, SELFPAY ==
--- NOTE | 2025-03-04 09:34 | MHC.OFFVIS ---
Vital Signs 03/04/25 09:45 Height 5 ft 2 in Weight 166 lb BMI 30.4 BP 112/60 Blood Pressure Location Rt brachial Position Sitting Pulse 74 Pulse Source Pulse Oximeter Pulse Oximetry (%) 98 Oxygen Delivery Method Room Air Intake Visit Reasons: discuss colo endo GERD, ABD. pin Intake Note: ESTABLISHED PATIENT for mgmt of GERD, umbilical hernia, constipation. Imaging done. Chief Complaint; C.O. epigastric pain, persistence of hernia complications. Pt states that she had a FUV with Dr. Bundy last week and they are going to have her receive another CT scan of the abd for these concerns. Media Theorist And Author Of Required: Yes Media Theorist And Author Of Services: Media Theorist And Author Of Present Media Theorist And Author Of Name: GI GARETT + Sravan [id number] Information Interpreted: clinical only Accompanied by: Self / Same As Patient Allergies Penicillins Allergy (Mild, Verified 02/24/25 10:59) RASH/DYSPNEA canagliflozin (From Invokana) Adverse Reaction (Severe, Verified 02/24/25 10:59) uti metformin Adverse Reaction (Intermediate, Verified 02/24/25 10:59) stomach upset mounjaro Adverse Reaction (Intermediate, Uncoded 02/24/25 10:59) Abdominal Pain trulicity Adverse Reaction (Intermediate, Uncoded 02/24/25 10:59) Abdominal Pain HPI HPI discuss colo endo GERD, ABD. pin: Details: LAST VISIT GERD (gastroesophageal reflux disease) Postprandial abdominal bloating IBS (irritable bowel syndrome) Chronic idiopathic constipation Plan Patient will stop Linzess. Patient was instructed to take fiber and takes senna 2 tablets in the evening. Increase fluid intake and activity to promote better bowel motility. Continue Nexium and famotidine. Avoid dietary triggers and late night snacking. Sitting upright for minimum 3 hours after meals discussed with patient. Due for colonoscopy and should go for upper endoscopy to re-evaluate. Long discussion with patient about dietary changes. Low FODMAP diet discussed with patient. List of food recommended as well as list of foods to avoid given to patient. Patient will follow-up in 3 months, sooner on a as needed basis. She is agreeable to this plan and verbalized understanding of instructions. She was given the opportunity ask questions and all questions answered. ? Thank you for allowing me to participate in her care New sennosides (Natural Senna Laxative) 17.2 mg (2 x 8.6 mg) PO BEDTIME 60 tabs 3RF constipation K59.00 Discontinued linaclotide (Linzess) Discontinued Reason: Doctor's Order 290 mcg PO QAM 30 caps 4RF K59.00 TODAY'S VISIT Patient is here today for follow-up. Patient reports that she saw Dr. Bundy last week. Patient requested the visit as she felt possible recurrence of periumbilical/ventral hernia. Patient will be going for CT scan. She did have umbilical hernia repair in August of 2024. Patient is concerned that this could be recurrence of the hernia. Patient reports that she otherwise is feeling well. Reports that she is taking Nexium in the morning and famotidine at bedtime and her symptoms of acid reflux are suppressed. Patient is moving her bowels better now. Patient is taking senna daily. Patient denies melena, hematochezia, unintentional weight loss or ribbon like stools. Denies any dyspepsia, dysphagia or odynophagia. Patient is due to go for colonoscopy. Patient denies any issues with anesthesia in the past. No history of sleep apnea. 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 Pernicious anemia Insomnia Depression with anxiety Moderate asthma Essential hypertension Polyarthralgia GERD (gastroesophageal reflux disease) Type 2 diabetes mellitus with other diabetic neurological complication Diabetes Hearing loss Surgical History Hx of bilateral cataract extraction History of esophagogastroduodenoscopy (EGD) H/O colonoscopy History of cholecystectomy History of umbilical hernia repair History of foot surgery History of carpal tunnel release History of surgery on arm History of endometrial ablation History of tubal ligation Family History Mother Breast cancer Paternal Grandmother Breast cancer Brother Colon cancer Family/Other FH: mental illness Mental health disorder Father CAD (coronary artery disease) Social History Household Members: Children Housing: Apartment Are you a primary healthcare management to a significant other at home: No Do you presently have 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) Alcohol intake: never Patient Tobacco Use Status: Never used Tobacco e-Cigarette/Vaping Use: Never Used Second Hand Smoke Exposure: No service: No Current occupational status: disabled Current occupation: Right hand dominate Cognitive needs: No Hearing needs: No Vision needs: Yes Female Reproductive History Menstrual Age of Menarche: 11 Review of Systems Const Denies weight gain and Denies weight loss ENT Reports no additional complaints, Denies dysphagia and Denies odynophagia Card Reports no additional complaints Resp Reports no additional complaints GI Reports abdominal pain (LLQ, upper and mid abdomen burning like pain), Denies belching, Denies melena, Reports bloating, Denies change in bowel habits, Reports constipation, Denies dysphagia, Denies excessive flatus, Denies dyspepsia, Denies heartburn, Denies diarrhea, Reports loose stools, Denies nausea, Denies odynophagia and Denies vomiting Reports no additional complaints Musc Reports no additional complaints Neuro Reports no additional complaints Psych Reports no additional complaints Endo Reports no additional complaints Physical Exam Const General: healthy appearing and no acute distress Nutritional Appearance: obese Orientation/consciousness: patient oriented x3 Resp Effort & Inspection: normal respiratory effort, able to speak in complete sentences, no tracheal deviation and symmetric chest movement Auscultation: clear to auscultation bilaterally Cardio Rate: regular rate GI Other: Old surgical scars Inspection: No distended, Yes obesity and Yes visible herniation Palpation (GI): Soft to palpation, not firm, nontender and No hepatosplenomegaly present Auscultation: normal bowel sounds General: Yes no CVA tenderness Back/Spine/Pelvis Back: no CVA tenderness Skin General skin exam: elasticity normal, turgor normal and dry skin Neuro General: patient oriented x3 Psych Appearance: grossly normal Mental Status: mental status grossly normal Assessment & Plan Assessment & Plan (1) GERD (gastroesophageal reflux disease): Code(s): K21.9 - Gastro-esophageal reflux disease without esophagitis Category: Medical Qualifiers: Esophagitis presence: without esophagitis Qualified Code(s): K21.9 - Gastro-esophageal reflux disease without esophagitis (2) Umbilical hernia: Code(s): K42.9 - Umbilical hernia without obstruction or gangrene Category: Medical Qualifiers: Obstruction and gangrene presence: without obstruction or gangrene Qualified Code(s): K42.9 - Umbilical hernia without obstruction or gangrene (3) Recurrent umbilical hernia: Code(s): K42.9 - Umbilical hernia without obstruction or gangrene Category: Surgical (4) Constipation: Code(s): K59.00 - Constipation, unspecified Qualifiers: Constipation type: slow transit constipation Qualified Code(s): K59.01 - Slow transit constipation Plan Patient will continue Nexium and famotidine. Avoid dietary triggers in late night snacking. Staying upright for minimum 3 hours after meals discussed with patient. Patient will be sent for upper endoscopy to rule. Patient will go for colonoscopy as well. What to expect before during and after procedure discussed with patient. Stressed the importance of good bowel prep and clear liquid diet day before procedure. I will see patient after the procedure, sooner on as needed basis. Patient is agreeable to this plan and verbalizes understanding of instructions. She was given the opportunity to ask questions and all questions answered. Thank you for allowing me to participate in her care Medications: New polyethylene glycol 3350 (Miralax) As directed by gastroenterology department at [facility] 238 grams PO ONCE 238 grams 0RF Z12.11 - Encounter for screening for malignant neoplasm of colon bisacodyl (Dulcolax (bisacodyl)) take 4 tabs at noon the day before your colonoscopy 20 mg (4 x 5 mg) PO ONCE 4 tabs 0RF constipation 1 day Z12.11 - Encounter for screening for malignant neoplasm of colon Refilled famotidine (Pepcid) 20 mg PO BEDTIME 90 tabs 3RF K21.9 - Gastro-esophageal reflux disease without esophagitis esomeprazole magnesium (Nexium) 40 mg PO DAILY 90 caps 3RF K21.9 - Gastro-esophageal reflux disease without esophagitis sennosides (senna) 17.2 mg (2 x 8.6 mg) PO BEDTIME PRN 180 tabs 1RF for constipation K59.00 - Constipation, unspecified Coding Level of Care Code Est Pt Level 4 (70361) Complex EM visit Add On G2211 Diagnoses Gastroesophageal reflux disease without esophagitis K21.9 Esophagitis presence: without esophagitis Umbilical hernia without obstruction and without gangrene K42.9 Obstruction and gangrene presence: without obstruction or gangrene Recurrent umbilical hernia K42.9 Slow transit constipation K59.01 Constipation type: slow transit constipation Time Spent (min) 35 Comment 25 minutes spent with patient and additional 10 minutes spent reviewing her records
[2025-03-04 09:45] VITALS: BP 112/60; PULSE 74; O2SAT 98; BMI 30.4
--- OUTSIDE RECORDS SUMMARY | 2025-03-04 10:31 | XMS_ITS | Clinical Summary ---
Author Organization [facility] Address [address] [place] [address] Care Team Providers Care Church Warden Name Role Phone Unavailable Primary Care Provider [...] of 2 - PCV) 05/30/2019 05/30/2018, 05/12/2006 [id number] (3 - season) 2024 11/04/2020, 10/07/2020 Alcohol [...] topic Vaginal Pap Discontinued Vulvoscopy Discontinued Insurance [email or web address] Member Subscriber Plan / Payer (Ef fective 2020-Present) Name:Mellisa Durham Relation to Subscriber:Self Name:Mellisa Durham Payer ID:[id number] Group ID:[id number] Type:Medicaid Address: [facility] [address] [place] [address]
--- OUTSIDE RECORDS SUMMARY | 2025-03-04 10:31 | XMS_ITS | Clinical Summary ---
[facility] Organization [facility] Address [address] [place] [address] Care Team Providers Care Ampoule Examiner Name Role Phone Unavailable Primary Care Provider [...]
== END 2025-03-04 10:20 | disposition home or self-care (01) ==
LOC: HO.HGI 09:30
PROVIDERS: PCP Internal Medicine; Visit Provider Nurse Practitioner Family
DX: K21.9 Gastro-esophageal reflux disease without esophagitis (principal); K42.9 Umbilical hernia without obstruction or gangrene; K59.01 Slow transit constipation
CPT/HCPCS: 99214

== ENCOUNTER → 2025-03-04 09:28 | Outpatient (BNVA) | payer OTHER, SELFPAY | PROVIDERS: PCP Internal Medicine; Visit Provider Nurse Practitioner Family | DX: Z01.818 Encounter for other preprocedural examination (principal); K21.9 Gastro-esophageal reflux disease without esophagitis; K42.9 Umbilical hernia without obstruction or gangrene; K59.01 Slow transit constipation | CPT/HCPCS: 99212 ==

== ENCOUNTER 2025-03-10 10:04 | Outpatient (AMB) | payer OTHER, SELFPAY ==
[2025-03-10 10:06] VITALS: BP 100/56; PULSE 70; O2SAT 98
--- NOTE | 2025-03-10 10:06 | A.OFFVIS_ITS ---
Vital Signs 03/10/25 10:06 Height 5 ft 2 in Weight 164 lb 3.91 oz BMI 30.0 BP 100/56 L Blood Pressure Location Lt brachial Position Sitting Pulse 70 Pulse Source Pulse Oximeter Pulse Oximetry (%) 98 Oxygen Delivery Method Room Air Intake Visit Reasons: Asthma Pv Design And Installation Technician Required: Yes Pv Design And Installation Technician Language: Carpet Tile Layer Services: Pv Design And Installation Technician Present Pv Design And Installation Technician Name: Marcella Douglass LM Allergies Penicillins Allergy (Mild, Verified 03/10/25 10:10) RASH/DYSPNEA canagliflozin (From Invokana) Adverse Reaction (Severe, Verified 03/10/25 10:10) uti metformin Adverse Reaction (Intermediate, Verified 03/10/25 10:10) stomach upset mounjaro Adverse Reaction (Intermediate, Uncoded 03/10/25 10:10) Abdominal Pain trulicity Adverse Reaction (Intermediate, Uncoded 03/10/25 10:10) Abdominal Pain HPI HPI Asthma: Details: Mellisa is a pleasant 59 year old female, never smoker, with underlying asthma, GERD, DMII, and HTN. At the last visit, she reported suboptimal control continuing with dyspnea, intermittent chest tightness and wheezing with instructions to increased Advair to BID however continues to only use 2 inhalations QAM. Since the last visit she was evaluated at [facility] ED on 02/23 for asthma exacerbation likely triggered by allergies, CXR unremarkable and discharged with azithromycin and prednisone. She reports overall improvements however continues with intermittent dyspnea, wheezing and dry cough. 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 Pernicious anemia Insomnia Depression with anxiety Moderate asthma Essential hypertension Polyarthralgia GERD (gastroesophageal reflux disease) Type 2 diabetes mellitus with other diabetic neurological complication Diabetes Hearing loss Surgical History Hx of bilateral cataract extraction History of esophagogastroduodenoscopy (EGD) H/O colonoscopy History of cholecystectomy History of umbilical hernia repair History of foot surgery History of carpal tunnel release History of surgery on arm History of endometrial ablation History of tubal ligation Family History Mother Breast cancer Paternal Grandmother Breast cancer Brother Colon cancer Family/Other FH: mental illness Mental health disorder Father CAD (coronary artery disease) Social History Household Members: Children Housing: Apartment Are you a primary farm or ranch animal caretaker to a significant other at home: No Do you presently have visiting 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) Alcohol intake: never Patient Tobacco Use Status: Never used Tobacco e-Cigarette/Vaping Use: Never Used Second Hand Smoke Exposure: No service: No Current occupational status: disabled Current occupation: Right hand dominate Cognitive needs: No Hearing needs: No Vision needs: Yes Female Reproductive History Menstrual Age of Menarche: 11 Review of Systems Const Denies chills, Denies excessive sweating, Denies fever(s), Denies headache(s) and Denies night sweats Eyes Denies dry eyes, Denies irritation and Denies itchy eyes ENT Reports Normal hearing present, Denies headache(s), Denies nasal congestion, Denies nasal discharge, Denies post nasal drip and Denies sore throat Card Denies chest pain, Denies chest pain at rest, Denies chest pain with activity, Denies claudication, Denies leg edema, Denies orthopnea and Denies paroxysmal nocturnal dyspnea Resp Denies chest congestion, Denies excessive phlegm production, Denies pain on inspiration, Denies pain with cough and Denies stridor Musc Denies myalgias Neuro Reports Normal hearing present and Denies headache(s) Endo Denies excessive sweating Kranthi/Lymph Denies lymphadenopathy Aller/Immun Denies itchy eyes and Denies seasonal rhinorrhea Physical Exam Vital Signs: BMI result Body Mass Index 30.0 Const General: cooperative, healthy appearing, comfortable, no acute distress, well developed and alert Nutritional Appearance: obese Orientation/consciousness: patient oriented x3 Limitations: no limitations HEENT Head: Yes normal to inspection, Yes normocephalic and Yes atraumatic Ears: hearing grossly normal bilaterally and external ears normal Eyes General: appearance normal, both eyes and all related structures Eyelids: Yes eyelids normal Sclerae: sclerae normal EOM: EOMs intact bilaterally Neck Neck: Yes normal visual inspection and Yes no lymphadenopathy Lymphatic: no lymphadenopathy noted Chest Chest palpation & inspection: normal inspection of the chest Resp Effort & Inspection: normal respiratory effort, able to speak in complete sentences, no audible wheezes, no cough, no stridor, not tachypneic, no tripod positioning and no use of accessory muscles Auscultation: clear to auscultation bilaterally Cardio Jugular venous distension: no JVD Rate: regular rate Rhythm: regular rhythm Skin Other: warm, dry General skin exam: no rashes or lesions noted Neuro General: patient oriented x3 Cranial nerves: Yes Normal hearing present Cognition (Neuro): normal cognition Gait exam (Neuro): Normal gait present Extrem General: Yes normal to inspection, Yes capillary refill normal, Yes no clubbing, cyanosis or edema and Yes no pedal edema Psych Appearance: grossly normal and well kempt Speech and movement: Normal speech and movement present and Clear speech present Affect: normal affect Attitude: cooperative Thought process: Normal thought process present Thought content: Normal thought content present Insight: Good insight present (Psych) Judgement: Good judgement present (Psych) Results Reviewed Results Reviewed: [address] [address] XRay Report Signed Patient: Mellisa Akbar MR#: [id number] : 1965 Acct:[id number] Age/Sex: 59 / F ADM Date: 02/23/25 Loc: .ED Attending Dr: Ordering Physician: Generic ED Physician Date of Service: 02/23/25 Procedure(s): XR chest 1V Accession Number(s): [id number] cc: Generic ED Physician; Physician,Unknown ~ CLINICAL HISTORY: SOB 1 view chest x-ray. Comparison: CR - XR CHEST 2V - 07/30/24 12:44 EST Findings: Normal lung volumes. Lungs are clear. No pneumothorax or pleural effusion. Heart size normal. No passive venous congestion. No midline shift or tracheal deviation. No acute fracture. Impression: 1. No acute cardiopulmonary disease. This document has been electronically signed by: Tha Dixon MD on 02/23/2025 17:44:21 Dictated By: Tha Dixon MD Signed By: <Electronically signed by Tha Dixon MD in OV> 02/23/25 4058 DD/ 43 TD/TT: 02/23/251743 Cloth Neutralizer Assessment & Plan Assessment & Plan (1) Asthma: Code(s): J45.909 - Unspecified asthma, uncomplicated Category: Medical Qualifiers: Asthma severity: moderate Asthma persistence: unspecified Asthma complication type: with acute exacerbation Qualified Code(s): J45.901 - Unspecified asthma with (acute) exacerbation (2) Environmental and seasonal allergies: Code(s): J30.89 - Other allergic rhinitis Category: Medical Plan Mellisa reports suboptimal control of respiratory symptoms, however not using Advair as prescribed. Encouraged to increase use to 2 inhalations BID and albuterol MDI PRN. She is aware to call if symptoms do not improve. Also discussed trialing daily antihistamine as allergies are a trigger for her. Will send Zyrtec. All questions were answered and patient is in agreement of plan. Will follow up in 8-10 weeks or sooner if needed. Medications: New cetirizine (Zyrtec) 10 mg PO DAILY PRN 30 tabs 2RF allergy symptoms Refilled fluticasone propion-salmeterol 230-21 mcg/actuation (Advair HFA) 2 puffs inhalation BID 12 grams 6RF Coding Level of Care Code Est Pt Level 4 (94483) Diagnoses Moderate asthma with acute exacerbation, unspecified whether persistent J45.901 Asthma severity: moderate Asthma persistence: unspecified Asthma complication type: with acute exacerbation Environmental and seasonal allergies J30.89
--- OUTSIDE RECORDS SUMMARY | 2025-03-10 11:53 | XMS_ITS | Clinical Summary ---
Author Organization [facility] Address [address] [place] [address] Care Team Providers Care Excel Vba Developer Name Role Phone Unavailable Primary Care Provider [...]
== END 2025-03-10 10:27 | disposition home or self-care (01) ==
LOC: HO.HPS 10:05
PROVIDERS: PCP Internal Medicine; Visit Provider Nurse Practitioner Family
DX: J45.901 Unspecified asthma with (acute) exacerbation (principal); J30.89 Other allergic rhinitis
CPT/HCPCS: 99214

== ENCOUNTER → 2025-03-10 10:04 | Outpatient (BNVA) | payer OTHER, SELFPAY | PROVIDERS: PCP Internal Medicine; Visit Provider Nurse Practitioner Family | DX: J45.901 Unspecified asthma with (acute) exacerbation (principal); J30.89 Other allergic rhinitis | CPT/HCPCS: 99212 ==

== ENCOUNTER 2025-03-13 12:45 | Outpatient (AMB) | payer OTHER, SELFPAY ==
--- NOTE | 2025-03-13 13:04 | MHC.PC.OV ---
Vital Signs 03/13/25 13:05 Height 5 ft 2 in Weight 162 lb BMI 29.6 BP 102/60 Blood Pressure Location Lt brachial Position Sitting Pulse 74 Pulse Source Pulse Oximeter Pulse Oximetry (%) 97 Oxygen Delivery Method Room Air Intake Visit Reasons: dm Manager Mail Required: No Accompanied by: Self / Same As Patient Allergies Penicillins Allergy (Mild, Verified 03/13/25 13:19) RASH/DYSPNEA canagliflozin (From Invokana) Adverse Reaction (Severe, Verified 03/13/25 13:19) uti metformin Adverse Reaction (Intermediate, Verified 03/13/25 13:19) stomach upset mounjaro Adverse Reaction (Intermediate, Uncoded 03/13/25 13:19) Abdominal Pain trulicity Adverse Reaction (Intermediate, Uncoded 03/13/25 13:19) Abdominal Pain Medication List - Last Reconciled 03/13/25 by Norma Bland MD acetone (urine) test (Ketone Urine Test strips) As directed albuterol sulfate 2.5 mg (3 mL) inhalation Q4-6H PRN albuterol sulfate 90 mcg/actuation 2 puffs inhalation Q4-6H PRN atorvastatin 40 mg PO DAILY bisacodyl (Dulcolax (bisacodyl)) 20 mg (4 x 5 mg) PO ONCE 1 day blood sugar diagnostic (FreeStyle Lite Strips) As directed four times a day blood-glucose meter (FreeStyle Lite Meter kit) use as directed to test blood sugar 4x per day blood-glucose sensor (FreeStyle Sandra 3 Plus Sensor device) continuous sensor reapply every 15 days cetirizine (Zyrtec) 10 mg PO DAILY PRN cholecalciferol (vitamin D3) (Vitamin D3) 25 mcg PO DAILY 90 days [compression stockings knee high As directed] cyanocobalamin (vitamin B-12) 500 mcg sublingual DAILY 90 days esomeprazole magnesium (Nexium) 40 mg PO DAILY famotidine (Pepcid) 20 mg PO BEDTIME fluticasone propion-salmeterol 230-21 mcg/actuation (Advair HFA) 2 puffs inhalation BID fluticasone propionate 50 mcg/actuation (Flonase Allergy Relief) 1 spray intranasal DAILY PRN heating pads As directed hydrochlorothiazide 12.5 mg PO QAM 90 days incontinence pad, liner, disp Use 1 pad twice a day insulin aspart U-100 20 units (0.2 mL) subcut TID 90 days ketorolac 10 mg PO TID PRN lancets (FreeStyle Lancets) every 4 hours prn dispense as 32 gauge if avil Lantus Solostar U-100 Insulin (insulin glargine) 55 units (0.55 mL) subcut DAILY 90 days NS levalbuterol tartrate 45 mcg/actuation (Xopenex HFA) 2 puffs inhalation Q4-6H PRN 30 days lorazepam 0.5 mg PO BID-TID PRN montelukast 10 mg PO DAILY nebulizer accessories NEBULIZER FACE MASK ADULT, USE DIRECTED nebulizers (Cytogel Pharmae II Nebulizer) As directed pen needle, diabetic (BD Sondra 2nd Gen Pen Needle) 4 times daily pioglitazone 45 mg PO DAILY 90 days polyethylene glycol 3350 (Miralax) 238 grams PO ONCE sennosides (senna) 17.2 mg (2 x 8.6 mg) PO BEDTIME PRN sertraline mg PO DAILY PRN Shower Chair As directed simethicone 125 mg PO BID-QID PRN solifenacin (Vesicare) 5 mg PO DAILY PRN [toilet seat elevator As directed] zolpidem 5 mg PO BEDTIME Tobacco use date assessed: 03/13/25 Dental Screening Dental Screen Date: 03/13/25 Did you have a dental visit in the last 12 months?: No Did you have a dental problem in the last 6 months where you did not have access to dental care?: No Was dental information given to patient?: No HPI HPI Comments History of Present Illness Details This is a 59-year-old female with diabetes mellitus type 2 on long-term current use of insulin, hypertension, hyperlipidemia and moderate recurrent major depression that comes today for follow-up on her conditions. A1c of 9.7% and she will call endocrinology for an appointment. I did increase insulin from 55 units to 60 units. She did admit she had prednisone 2 weeks ago. Blood pressure within goal being less than 130/80. LDL within goal being less than 70. Moderate major depression has been stable with SSRIs. 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 Pernicious anemia Insomnia Depression with anxiety Moderate asthma Essential hypertension Polyarthralgia GERD (gastroesophageal reflux disease) Type 2 diabetes mellitus with other diabetic neurological complication Diabetes Hearing loss Surgical History Hx of bilateral cataract extraction History of esophagogastroduodenoscopy (EGD) H/O colonoscopy History of cholecystectomy History of umbilical hernia repair History of foot surgery History of carpal tunnel release History of surgery on arm History of endometrial ablation History of tubal ligation Family History Mother Breast cancer Paternal Grandmother Breast cancer Brother Colon cancer Family/Other FH: mental illness Mental health disorder Father CAD (coronary artery disease) Social History Household Members: Children Housing: Apartment Are you a primary day care attendant to a significant other at home: No Do you presently have visiting nurse or other home services: Yes ([employer]) Alcohol intake: never Patient Tobacco Use Status: Never used Tobacco e-Cigarette/Vaping Use: Never Used Second Hand Smoke Exposure: No service: No Current occupational status: disabled Current occupation: Right hand dominate Cognitive needs: No Hearing needs: No Vision needs: Yes Female Reproductive History Menstrual Age of Menarche: 11 Questionnaire PHQ-9 Over the last 2 weeks, how often have you been bothered by any of the following problems? 1. Little interest or pleasure in doing things: several days 2. Feeling down, depressed, or hopeless: several days 3. Trouble falling or staying asleep, or sleeping too much: several days 4. Feeling tired or having little energy: several days 5. Poor appetite or overeating: several days 6. Feeling bad about yourself - or that you are a failure or have let yourself or your family down: more than half the days 7. Trouble concentrating on things, such as reading the newspaper or watching television: several days 8. Moving or speaking so slowly that other people could have noticed. Or the opposite - being so fidgety or restless that you have been moving around a lot more than usual: several days 9. Thoughts that you would be better off or of hurting yourself in some way: not at all Total score: 9 Depression Screening Interpretation: Positive Depression Screening Follow-up: Existing condition, In treatment, Community Mental Health Worker F/U and Follow-up Visit Requested Depression Screening Done: Yes 76754 - PHQ-9 Billing: Yes Source: Developed by Drs. Hernandez Love, Rebecca Peacock, Kalyan Becker and colleagues, with an educational julio from [employer]. Thrive Questionnaire Date Thrive assessed: 03/13/25 I am a: Patient What is your living situation today?: I have a steady place to live Within the past 12 months, did the food you bought not last and you didn't have the money to get more?: Sometimes True Within the past 12 months, did you worry whether your food would run out before you got money to buy more?: Sometimes True Do you have trouble paying for medicines?: No Do you have trouble getting transportation to medical appointments?: No Do you have trouble paying your heating and electricity bill?: No Do you have trouble taking care of your child, family member or friend?: No Do you have trouble with day-to-day activities such as bathing, preparing meals, shopping, managing finances, etc.?: No Are you currently unemployed and looking for a job?: No Are you interested in more education?: Yes Please select the resources that you would like help with: None Currently or been in a relationship where the following occur: I choose not to answer THRIVE Score: 2 AUDIT C Alcohol Use Questionnaire (AUDIT-C) 1. How often do you have a drink containing alcohol?: Never 3. How often do you have six or more drinks on one occasion?: Never Total Score: 0 Score Reviewed/Action Taken: No LIANA-7 AMB Questionnaire LIANA-7 Date LIANA - 7 assessed: 03/13/25 Feeling nervous, anxious, or on edge: 0 = Not at all Not being able to stop or control worryin = Not at all Worrying too much about different things: 0 = Not at all Trouble relaxin = Not at all Being so restless that it is hard to sit still: 0 = Not at all Becoming easily annoyed or irritable: 0 = Not at all Feeling afraid as if something awful might happen: 0 = Not at all Total LIANA-7 score (0-4 normal; 5-9 mild; 10-14 moderate; 15-21 severe): 0 Source: Developed by Drs. Hernandez Love, Rebecca Peacock, Kalyan Becker and colleagues, with an educational julio from [employer]. LIANA-7 Assessment Billing LIANA-7 Assessment Tool: LIANA-7 Assessment 60367 Review of Systems Const All systems reviewed & are unremarkable except as noted in HPI and below Card Denies chest pain at rest, Denies chest pain with activity, Denies edema, Denies irregular heart rhythm, Denies claudication, Denies dyspnea, Denies dyspnea on exertion, Denies orthopnea, Denies paroxysmal nocturnal dyspnea and Denies slow heart rate Resp Denies cough, Denies dyspnea and Denies dyspnea on exertion GI Denies abdominal pain, Denies change in bowel habits, Denies excessive flatus, Denies nausea and Denies vomiting Physical exam (Primary Care) Vital Signs: Last Vital Signs Pulse 74 03/13/25 13:05 BP 102/60 03/13/25 13:05 Pulse Ox 97 03/13/25 13:05 Oxygen Delivery Method Room Air 03/13/25 13:05 BMI result Body Mass Index 29.6 Tobacco/Smoking Status: Tobacco use Status Tobacco use date assessed 03/13/25 03/13/25 13:09 Patient Tobacco Use Status Never used Tobacco 03/13/25 13:09 e-Cigarette/Vaping Use Never Used 03/13/25 13:09 PHQ-9: PHQ-9 Score PHQ-9: Total score 9 03/13/25 13:23 Depression Screening Interpretation: Positive Depression Screening Follow-up: Existing condition, In treatment, Community Mental Health Worker F/U and Follow-up Visit Requested Thrive Assessment: Date of Thrive Assessment Date Thrive assessed 03/13/25 03/13/25 13:09 Currently or been in a relationship where the following occur: I choose not to answer Resp Effort & Inspection: normal respiratory effort Auscultation: clear to auscultation bilaterally Cardio Jugular venous distension: no JVD Rate: regular rate Rhythm: regular rhythm Heart sounds: S1 normal heart sound present and S2 normal heart sound present Extrem General: Yes full ROM Results AMB Hemoglobin A1c AMB Hemoglobin A1c 9.7 % Last Edit by NACHO Monroy on 03/13/25 13:25 Results Reviewed Results Reviewed: Laboratory Last Values Hgb A1c (Clinic) 9.7 % (4.0-6.0) H 03/13/25 13:24 Coding Level of Care Code Est Pt Level 4 (80284) Complex EM visit Add On G2211 Diagnoses Moderate recurrent major depression F33.1 Essential hypertension I10 Hyperlipidemia LDL goal <70 E78.5 Type 2 diabetes mellitus with diabetic polyneuropathy, with long-term current use of insulin E11.42; Z79.4 Diabetes mellitus nursing home insulin use: with nursing home use Additional Codes LIANA-7 Assessment Billing - LIANA-7 Assessment Tool: LIANA-7 Assessment 88533 ([id number]) PHQ-9 - 99317 - PHQ-9 Billing: Yes ([id number]) Time Spent (min) 22 Assessment & Plan Assessment & Plan (1) Moderate recurrent major depression: Code(s): F33.1 - Major depressive disorder, recurrent, moderate Category: Medical (2) Essential hypertension: Code(s): I10 - Essential (primary) hypertension Category: Medical (3) Hyperlipidemia LDL goal <70: Code(s): E78.5 - Hyperlipidemia, unspecified Category: Medical (4) Type 2 diabetes mellitus with diabetic polyneuropathy: Code(s): E11.42 - Type 2 diabetes mellitus with diabetic polyneuropathy Category: Medical Qualifiers: Diabetes mellitus terminal gauger supervisor insulin use: with nursing home use Qualified Code(s): E11.42 - Type 2 diabetes mellitus with diabetic polyneuropathy; Z79.4 - [facility] (current) use of insulin Plan Increase insulin to 60 units. Continue current meds. Follow-up with endocrinology. A1c goal is equal or less than 7%. Blood pressure goal is equal or less than 130/80. LDL goal is less than 70. Orders: Orders Vitamin B12 and Folate 4 Months E53.8 - Deficiency of other specified B group vitamins Microalbumin, Random (w Creat) 4 Months R80.9 - Proteinuria, unspecified IRON PROFILE 4 Months D64.9 - Anemia, unspecified AMB Hemoglobin A1c Today Z13.9 - Encounter for screening, unspecified Vitamin D 25-OH Total 4 Months E55.9 - Vitamin D deficiency, unspecified Lipid Panel 4 Months E78.5 - Hyperlipidemia, unspecified Complete Blood Count Auto Diff 4 Months D64.9 - Anemia, unspecified Comprehensive [place]. Panel Fast 4 Months I10 - Essential (primary) hypertension Medications: Changed From Lantus Solostar U-100 Insulin (insulin glargine) 55 units (0.55 mL) subcut DAILY 90 days 49.5 mL 3RF NS E11.65 - Type 2 diabetes mellitus with hyperglycemia To Lantus Solostar U-100 Insulin (insulin glargine) 60 units (0.6 mL) subcut DAILY 54 mL 3RF 90 days NS E11.65 - Type 2 diabetes mellitus with hyperglycemia
[2025-03-13 13:05] VITALS: BP 102/60; PULSE 74; O2SAT 97; BMI 29.6
--- OUTSIDE RECORDS SUMMARY | 2025-03-13 16:55 | XMS_ITS | Clinical Summary ---
Author Organization [facility] Address [address] [place] [address] Care Team Providers Care Dairy Manager Name Role Phone Unavailable Primary Care Provider [...] of 2 - PCV) 05/30/2019 05/30/2018, 05/12/2006 Alcohol and Drug Screen 07/03/2024 Depression Annual Screen 07/03/2024 [id number] ( season) 2025 11/04/2020, 10/07/2020 Imm-Influenza (#1) 2025 04/04/2019, 05/30/2018 Imm-DTaP/Tdap/Td (2 - Td or Tdap) 01/06/2030 01/07/2020, 07/08/2015 Cervical Ablation/Cold-Knife Conization Discontinued Cervical Cryotherapy Discontinued Colposcopy Discontinued Endometrial Biopsy Discontinued Excision/Leep Discontinued HPV Genotyping Discontinued Imm-Hepatitis B Aged Out No longer el igible based on patient's age to complete this topic Vaginal Pap Discontinued Vulvoscopy Discontinued Insurance [employer] Member Subscriber Plan / Payer (Ef fective 2020-Present) Name:Mellisa Durham Relation to Subscriber:Self Name:Mellisa Durham Payer ID:[id number] Group ID:[id number] Type:Medicaid Address: [facility] [id number] [place] [address]
== END 2025-03-13 13:33 | disposition home or self-care (01) ==
LOC: HO.HMCH 12:46
PROVIDERS: PCP Internal Medicine; Visit Provider Internal Medicine
DX: E11.42 Type 2 diabetes mellitus with diabetic polyneuropathy (principal); F33.1 Major depressive disorder, recurrent, moderate; Z79.4 Long term (current) use of insulin; I10 Essential (primary) hypertension; E78.5 Hyperlipidemia, unspecified

== ENCOUNTER → 2025-03-13 12:45 | Outpatient (BNVA) | payer OTHER, SELFPAY | PROVIDERS: PCP Internal Medicine; Visit Provider Internal Medicine | DX: E11.42 Type 2 diabetes mellitus with diabetic polyneuropathy (principal); F33.1 Major depressive disorder, recurrent, moderate; I10 Essential (primary) hypertension; E78.5 Hyperlipidemia, unspecified; Z79.4 Long term (current) use of insulin; Z13.31 Encounter for screening for depression; Z13.39 Encounter for screening examination for other mental health and behavioral disorders | CPT/HCPCS: 83036; 96127; 99212 ==

== ENCOUNTER 2025-03-17 09:09 | Outpatient (AMB) | payer OTHER, SELFPAY ==
--- NOTE | 2025-03-17 09:12 | A.OFFVIS_ITS ---
Vital Signs 3 03/17/25 09:13 Height 5 ft 2 in Weight 167 lb 8.821 oz BMI 30.6 BP 112/58 L Blood Pressure Location Lt brachial Position Sitting Pulse 76 Pulse Source Pulse Oximeter Pulse Oximetry (%) 97 Oxygen Delivery Method Room Air Intake Visit Reasons: T2DM Intake Note: Patient present today for Type 2 Diabetes Mellitus Last Diabetic eye exam: Last exam was on 12/05/2024. Last Podiatry Visit: Doesn't have one Random Glucose: 131 mg/dl HgA1C: 9.7% 03/13/25 Funeral Limousine Driver Required: Yes Funeral Limousine Driver Language: Oracle Bpm Consultant Services: Funeral Limousine Driver Present Funeral Limousine Driver Name: Hemant [id number] Information Interpreted: non-clinical & clinical Accompanied by: Self / Same As Patient Allergies Penicillins Allergy (Mild, Verified 03/17/25 09:24) RASH/DYSPNEA canagliflozin (From Invokana) Adverse Reaction (Severe, Verified 03/17/25 09:24) uti metformin Adverse Reaction (Intermediate, Verified 03/17/25 09:24) stomach upset mounjaro Adverse Reaction (Intermediate, Uncoded 03/17/25 09:24) Abdominal Pain trulicity Adverse Reaction (Intermediate, Uncoded 03/17/25 09:24) Abdominal Pain Medication List - Last Reconciled 03/17/25 by Bhakti Hopkins MD acetone (urine) test (Ketone Urine Test strips) As directed albuterol sulfate 2.5 mg (3 mL) inhalation Q4-6H PRN albuterol sulfate 90 mcg/actuation 2 puffs inhalation Q4-6H PRN atorvastatin 40 mg PO DAILY bisacodyl (Dulcolax (bisacodyl)) 20 mg (4 x 5 mg) PO ONCE 1 day blood sugar diagnostic (FreeStyle Lite Strips) As directed four times a day blood-glucose meter (FreeStyle Lite Meter kit) use as directed to test blood sugar 4x per day blood-glucose sensor (FreeStyle Sandra 3 Plus Sensor device) continuous sensor reapply every 15 days cetirizine (Zyrtec) 10 mg PO DAILY PRN cholecalciferol (vitamin D3) (Vitamin D3) 25 mcg PO DAILY 90 days [compression stockings knee high As directed] cyanocobalamin (vitamin B-12) 500 mcg sublingual DAILY 90 days esomeprazole magnesium (Nexium) 40 mg PO DAILY famotidine (Pepcid) 20 mg PO BEDTIME fluticasone propion-salmeterol 230-21 mcg/actuation (Advair HFA) 2 puffs inhalation BID fluticasone propionate 50 mcg/actuation (Flonase Allergy Relief) 1 spray intranasal DAILY PRN heating pads As directed hydrochlorothiazide 12.5 mg PO QAM 90 days incontinence pad, liner, disp Use 1 pad twice a day insulin aspart U-100 20 units (0.2 mL) subcut TID 90 days ketorolac 10 mg PO TID PRN lancets (FreeStyle Lancets) every 4 hours prn dispense as 32 gauge if avil Lantus Solostar U-100 Insulin (insulin glargine) 60 units (0.6 mL) subcut DAILY 90 days NS levalbuterol tartrate 45 mcg/actuation (Xopenex HFA) 2 puffs inhalation Q4-6H PRN 30 days lorazepam 0.5 mg PO BID-TID PRN montelukast 10 mg PO DAILY nebulizer accessories NEBULIZER FACE MASK ADULT, USE DIRECTED nebulizers (AeroEPowerede II Nebulizer) As directed pen needle, diabetic (BD Sondra 2nd Gen Pen Needle) 4 times daily pioglitazone 45 mg PO DAILY 90 days polyethylene glycol 3350 (Miralax) 238 grams PO ONCE sennosides (senna) 17.2 mg (2 x 8.6 mg) PO BEDTIME PRN sertraline mg PO DAILY PRN Shower Chair As directed simethicone 125 mg PO BID-QID PRN solifenacin (Vesicare) 5 mg PO DAILY PRN [toilet seat elevator As directed] zolpidem 5 mg PO BEDTIME HPI Comments Details: 59 year old female with DM type 2 diagnosed around 2004 who presents for management of diabetes. She was last seen 10/16/24 03/13/2025 A1c 9.7% 10/16/2024 A1c 8.5% 07/30/24 A1C of 8% but had been on prednisone for 5 days prior. 04/25/24 7.4% gets a lot of asthma flares, did a prednisone taper 2 weeks ago Pre pump she was 8.3%. She had been having difficulty pairing her sensor to her I let pump and has been advised by her surgeon that she should not be using a pump for 3 months after surgery to allow for healing of the abdomen. Hernia Surgery was done September 11 2024 and she has no post op issues.She was having difficulty as the pump is in Swedish and she does not read Swedish and was not a good candidate for this pump. She was switched from a Dexcom to a freestyle Sandra Aug 27 and pump stopped . Previous intolerance to medications: Trulicity and Mounjaro due to abdominal pain. Was not in Invokana which was stopped secondary to UTI. Islet pump stopped due to difficulty pairing sensor and inability to operate secondary to language barrier. She was seen in ED 10/15/24 due to elevated BG readings in 400s ED workup was unremarkable except high blood sugars in the 200s Currently denies any nausea , vomiting, does endorse fatigue Current Medication: pioglitazone 45 mg Lantus currently taking 35 units at night (from 50 units , titrated up to 55 units October 2024 and then PCP titrated up to 60 units 03/13/2025) she has been taking 35 units off her own accord Aspart 25 units pre meal (but I sense some issues with adherence?) FFreestyle Sandra 3+ report downloaded from March 04 to 03/17/2025 Time CGM active 85% Average glucose 227 mg/dL G AZ 8.7% Glucose variability 33.6% Within target range 28% High 30% Very high 41% Low 1% Very low 0% Interpretation: Elevated postprandial readings as well as overnight hyperglycemia. Random Glucose: 131 mg/dl Hypoglycemia: none recent Hyperglycemia: + Ophthalmology evaluation: 12/25 -cataract surgery in 01/2024 No nephropathy: October 2024 normal urine microalbumin ratio, January 2025 eGFR>60 Neuropathy: no numbness, tingling, pain or cramping in the extremities saw podiatry Not on statin last LDL October Seen by Cardiology 2024 Stress echo negative for ischemia at achieved workload and HR 06/25 Normal LV ejection fraction of 60 65% with impaired relaxation filling pattern Getting evaluted with urology for hydropnephrosis , also following with Nephrology for this. 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 education: Saw in 2023 last Physical exam General: sitting comfortably in no acute distress HEENT: normocephalic/atraumatic Neck: supple, symmetrical, Cardiac: normal heart sounds Pulm: normal breath sounds B/L, no added breath sounds Abd: not distended, no tenderness Extremities: Mild edema noted bilaterally Neuro: AAO x3, Speech: normal, no facial droop, moving all 4 extremities Foot sensation : Done October 2024 intact sensation to monofilament, intact pulses Laboratory Tests 04/13/24 04/13/24 04/17/24 09:05 09:14 09:10 Sodium Potassium Creatinine Estimated GFR POC Glucose Random Glucose Hgb A1c (Clinic) 7.4 H AST ALT Albumin Triglycerides 133 Cholesterol 145 LDL Cholesterol, Calc 78 HDL Cholesterol 41 Vitamin B12 471 Beta-Hydroxybutyrate Urine Creatinine 77.70 Urine Microalbumin 11.0 Microalb/Creat Ratio 14.1 07/30/24 10/15/24 10/15/24 11:11 17:00 17:23 Sodium 141 Potassium 3.9 Creatinine 0.81 Estimated GFR > 60 POC Glucose 246 H Random Glucose 232 H Hgb A1c (Clinic) 8.0 H AST 38 H ALT 40 H Albumin 3.9 Triglycerides Cholesterol LDL Cholesterol, Calc HDL Cholesterol Vitamin B12 Beta-Hydroxybutyrate 0.08 Urine Creatinine Urine Microalbumin Microalb/Creat Ratio 10/15/24 18:50 Sodium Potassium Creatinine Estimated GFR POC Glucose 179 H Random Glucose Hgb A1c (Clinic) AST ALT Albumin Triglycerides Cholesterol LDL Cholesterol, Calc HDL Cholesterol Vitamin B12 Beta-Hydroxybutyrate Urine Creatinine Urine Microalbumin Microalb/Creat Ratio Laboratory Tests 10/16/24 10/22/24 10/25/24 13:46 08:44 07:30 Hgb Hct Plt Count Creatinine Estimated GFR Hgb A1c (Clinic) 8.5 H AST ALT Triglycerides 100 Cholesterol 120 LDL Cholesterol, Calc 64 HDL Cholesterol 36 L Urine Creatinine 107.98 Urine Microalbumin 5.0 Microalb/Creat Ratio 4.6 11/07/24 01/31/25 03/13/25 23:47 09:33 13:24 Hgb 12.9 Hct 38.9 Plt Count 111 L Creatinine 0.71 Estimated GFR > 60 Hgb A1c (Clinic) 9.7 H AST 36 H ALT 31 Triglycerides Cholesterol LDL Cholesterol, Calc HDL Cholesterol Urine Creatinine Urine Microalbumin Microalb/Creat Ratio [facility] Medical History Supraumbilical hernia Ear discomfort Palpitations Overweight Type 2 diabetes mellitus with diabetic polyneuropathy B12 deficiency DM2 (diabetes mellitus, type 2) Tubular adenoma Moderate recurrent major depression Dyslipidemia Umbilical hernia Edema Arthritis Ear pain alf (current) use of insulin Pernicious anemia Insomnia Depression with anxiety Moderate asthma Essential hypertension Polyarthralgia GERD (gastroesophageal reflux disease) Type 2 diabetes mellitus with other diabetic neurological complication Diabetes Hearing loss Surgical History Hx of bilateral cataract extraction History of esophagogastroduodenoscopy (EGD) H/O colonoscopy History of cholecystectomy History of umbilical hernia repair History of foot surgery History of carpal tunnel release History of surgery on arm History of endometrial ablation History of tubal ligation Family History Mother Breast cancer Paternal Grandmother Breast cancer Brother Colon cancer Family/Other FH: mental illness Mental health disorder Father CAD (coronary artery disease) Social History Household Members: Children Housing: Apartment Are you a primary coronary care unit nurse to a significant other at home: No Do you presently have visiting nurse or other home services: Yes (RESTAURANT KITCHEN AND SERVICE MANAGER) Alcohol intake: never Patient Tobacco Use Status: Never used Tobacco e-Cigarette/Vaping Use: Never Used Second Hand Smoke Exposure: No service: No Current occupational status: disabled Current occupation: Right hand dominate Cognitive needs: No Hearing needs: No Vision needs: Yes Female Reproductive History Menstrual Age of Menarche: 11 Office Procedures Glucose Monitoring Details Details: See [facility] [address] - Glucose monitoring, continuous-physician I&R Procedure code (CPT) selection complete Assessment & Plan Assessment & Plan (1) Type 2 diabetes mellitus with diabetic polyneuropathy: Code(s): E11.42 - Type 2 diabetes mellitus with diabetic polyneuropathy Category: Medical Qualifiers: Diabetes mellitus [facility] insulin use: with dedicated intermodal truck driver use Qualified Code(s): E11.42 - Type 2 diabetes mellitus with diabetic polyneuropathy; Z79.4 - alf (current) use of insulin Plan: 59-year-old with type 2 diabetes mellitus who was on an islet pump until August 2024 which was stopped due to inability to use pump due to language barrier, along with Invokana which was stopped secondary to UTI, now on basal bolus regimen and takes pioglitazone. She also has GI intolerance to GLp-1 agonists with A1c of 9.7% 03/13/2025 up from 8.5% point of care 10/16/2024 We will up titrate her insulin. She is already on max dose of pioglitazone. Could not tolerate multiple GLP 1 agonist/SGLT2 in the past. Plan: -continue pioglitazone 45 mg daily -increase insulin as New dosing: Lantus 35 units to 38 units Aspart from 25 to 28 units tid with meals RTC 8 weeks for review of sensor and additional titration Advised to walk 30 minutes 5 days a week The patient had an opportunity to ask questions regarding treatment plan. The patient expressed understanding and agreement with the above treatment plan. The patient is aware they should contact our office by phone for worsening glucose readings or for any low blood sugars which may warrant a change in diabetes medication. Compliance is encouraged with medications and any followup testing/consults which may have been ordered. Plan I spent 30 minutes in reviewing the record, seeing the patient and documenting in the medical record. Orders: Orders 2 AMB Glucose Monitoring Today E11.42 - Type 2 diabetes mellitus with diabetic polyneuropathy, Z79.4 - alf (current) use of insulin Medications: Changed 2 From Lantus Solostar U-100 Insulin (insulin glargine) 60 units (0.6 mL) subcut DAILY 90 days 54 mL 3RF NS E11.65 - Type 2 diabetes mellitus with hyperglycemia To Lantus Solostar U-100 Insulin (insulin glargine) 38 units (0.38 mL) subcut DAILY 34.2 mL 3RF 90 days NS E11.65 - Type 2 diabetes mellitus with hyperglycemia From insulin aspart U-100 20 units (0.2 mL) subcut TID 90 days 54 mL 4RF To insulin aspart U-100 28 units (0.28 mL) subcut TID 75.6 mL 4RF 90 days Patient Instructions: Insulin Lantus 38 units daily at bedtime Insulin Aspart 28 units three with meals Insulina Lantus 38 unidades diarias antes de acostarse Insulina Aspart 28 unidades jaymie veces al d?a con las comidas Coding Level of Care Code Est Pt Level 4 (91317) Diagnoses Type 2 diabetes mellitus with diabetic polyneuropathy, with long-term current use of insulin E11.42; Z79.4 Diabetes mellitus [facility] insulin use: with [facility] use CPT Codes Details - CPT: 00993 - Glucose monitoring, continuous-physician I&R ([id number]) Time Spent (min) 30
[2025-03-17 09:13] VITALS: BP 112/58; PULSE 76; O2SAT 97; BMI 30.6
[2025-03-17 09:31] LABS: Glucose, Whole Blood 131 mg/dL (60-115)
--- OUTSIDE RECORDS SUMMARY | 2025-03-17 10:46 | XMS_ITS | Clinical Summary ---
[facility] Address [address] [place] [address] Care Team Providers Care Insert Molding Operator Name Role Phone Unavailable Primary Care [...] 2014 Zoster Vaccines (1 of 2) 2014 Depression Screening 07/03/2024 COVID-19 Vaccine (1 - 2023-2 5 season) 2025 Influenza Vaccine (#1) 2025 RSV Immunization Adult [...]
--- OUTSIDE RECORDS SUMMARY | 2025-03-17 10:46 | XMS_ITS | Clinical Summary ---
Author Organization [facility] Address [address] [place] [address] Care Team Providers Care Product Tester Fiberglass Name Role Phone Unavailable Primary Care Provider [...] Drug Screen 07/03/2024 Depression Annual Screen 07/03/2024 [id number] ( season) 2025 11/04/2020, 10/07/2020 Imm-Influenza (#1) 2025 04/04/2019, 05/30/2018 Imm-DTaP/Tdap/Td (2 - Td or Tdap) 01/06/2030 01/07/2020, 07/08/2015 Cervical Ablation/Cold-Knife Conization Discontinued Cervical Cryotherapy Discontinued Colposcopy Discontinued Endometrial Biopsy Discontinued Excision/Leep Discontinued HPV Genotyping Discontinued Imm-Hepatitis B Aged Out No longer el igible based on patient's age to complete this topic Vaginal Pap Discontinued Vulvoscopy Discontinued Insurance [employer] PLAN Member Subscriber Plan / Payer (Ef fective 2020-Present) Name:Mellisa Durham Relation to Subscriber:Self Name:Mellisa Durham Payer ID:[id number] Group ID:[id number] Type:Medicaid Address: [facility] [address] [place] [address]
== END 2025-03-17 09:41 | disposition home or self-care (01) ==
LOC: HO.ENCR 09:10
PROVIDERS: PCP Internal Medicine; Visit Provider Student in an Organized Health Care Education/Training Program
DX: E11.42 Type 2 diabetes mellitus with diabetic polyneuropathy (principal); Z79.4 Long term (current) use of insulin
CPT/HCPCS: 95251; 99214

== ENCOUNTER → 2025-03-17 09:09 | Outpatient (BNVA) | payer OTHER, SELFPAY | PROVIDERS: PCP Internal Medicine; Visit Provider Student in an Organized Health Care Education/Training Program | DX: E11.42 Type 2 diabetes mellitus with diabetic polyneuropathy (principal); Z79.4 Long term (current) use of insulin | CPT/HCPCS: 82947; 99212 ==

== ENCOUNTER 2025-03-28 09:19 | Emergency (ER) | payer OTHER, SELFPAY ==
--- NOTE | ~2025-03-28 | CT_ITS ---
EXAMINATION: CT ABDOMEN AND PELVIS WITH CONTRAST CLINICAL INFORMATION: Abdominal pain, hernia COMPARISON: November 26, 2024 TECHNIQUE: Multidetector volumetric images were obtained from the superior aspect of the liver through the pubic symphysis following administration 85 mL of Omnipaque 350 intravenous contrast. Sagittal and coronal reformatted images were obtained on the technologist's workstation. Oral contrast: No This CT examination was performed using dose optimization techniques as appropriate, variously including the following: *Automated exposure control *Adjustment of mA and/or kV according to patient size (this includes techniques or standardized protocols for targeted exams where dose is matched to indication/reason for exam; i.e. extremities or head) *Use of iterative reconstruction technique FINDINGS: LUNG BASES: The visualized lung bases are unremarkable. LIVER, GALLBLADDER, AND BILIARY TREE: Mild decreased degenerative attenuation of the liver. Gallbladder is surgically absent. There are clips in the gallbladder fossa. PANCREAS: Unremarkable. SPLEEN: Unremarkable. ADRENAL GLANDS: Unremarkable. KIDNEYS AND URETERS: The kidneys are normal in size, shape, and attenuation. No hydronephrosis, hydroureter, or calculi seen. No perinephric stranding. BLADDER: Unremarkable. GASTROINTESTINAL TRACT: The small and large bowel are unremarkable. The appendix is unremarkable. ABDOMINAL WALL: There is a small right periumbilical hernia containing adipose tissue. The hernia sac measures 9 x 26 mm (AP by cc). Herniation is 3 14 mm dehiscence in the linea alba, right and midline. Just inferior to the hernia sac, there is a 10 mm area of focal hypodensity that probably represents scar tissue. LYMPH NODES: Normal. VASCULAR: Mild atherosclerotic calcification is present in the proximal common iliac arteries. PELVIC VISCERA: Unremarkable. OSSEOUS STRUCTURES: There is no evidence of degenerative disc disease. CT/CT abdomen pelvis w IV con IMPRESSION: Right periumbilical hernia containing normal density adipose tissue cephalad to a focal area of probable scar tissue. Hepatic steatosis, mild. Fleischner guidelines were followed. Electronically signed by: Alvin Fagan MD 03/28/2025 12:44 PM EDT
--- NOTE | ~2025-03-28 | XR_ITS ---
EXAMINATION: XR CHEST CLINICAL INFORMATION: lump right ribs COMPARISON: 02/23/2025 TECHNIQUE: 2 views of the chest were obtained. FINDINGS: No significant abnormality is noted involving the heart, lungs, mediastinum, or soft tissues. Mild degenerative changes are present thoracic spine. XR/XR chest 2V IMPRESSION: No acute disease. Electronically signed by: Alvin Fagan MD 03/28/2025 10:53 AM EDT
[2025-03-28 09:35] VITALS: BP 144/65; PULSE 69; RESP 18; TEMP 36.6; O2SAT 98
[2025-03-28 10:06] LABS: MANUAL DIFF FLAG NO
[2025-03-28 10:08] LABS: Appearance Urine Clear; Glucose Urine UA 100 mg/dL (Negative); PH 5.5 (5.0-9.0); Specific Gravity - Urine 1.020 (1.005-1.025); UMIC TRIGGER UACC YES
[2025-03-28 10:13] LABS: Hematocrit 41.1 % (37.0-47.0); Hemoglobin 13.6 g/dl (12.0-16.0); Imm Gran Abs Auto 0.02 X10*3/uL (0.00-0.03); Imm Gran Pct Auto 0.3 % (0.0-0.4); Lymphocytes Absolute Auto 2.0 X10*3/uL (1.2-4.9); Mean Corpuscular HGB Conc 33.1 g/dl (31.0-35.0); Mean Corpuscular Hemoglobin 28.7 pg (27.0-33.0); Mean Corpuscular Volume 86.7 fL (80.0-98.0); NRBC Abs Auto 0.000 X10*3/uL (0.0-0.012); NRBC Pct Auto 0.0 /100WBC (0.0-0.2); Platelet Count 115 X10*3/uL (160-400); Red Blood Count 4.74 X10*6/uL (4.20-5.50); White Blood Count 6.3 X10*3/uL (4.8-10.8)
[2025-03-28 10:29] LABS: Alanine Aminotransferase 42 U/L (0-31); Albumin Level 4.1 g/dL (3.5-5.0); Alkaline Phosphatase 60 U/L (39-117); Anion Gap 11 (12-20); Aspartate Amino Transferase 44 U/L (5-31); Blood Urea Nitrogen 20 mg/dL (9-16); Calcium 9.4 mg/dL (8.4-10.2); Carbon Dioxide 28 mmol/L (22-29); Chloride 106 mmol/L (96-108); Creatinine Clr Calc Pharmacy 87.0; Estimated Glomerular Filt Rate > 60; Lipase 44 U/L (8-78); Potassium 4.1 mmol/L (3.3-5.1); Sodium 141 mmol/L (135-145); Total Protein 7.1 g/dL (6.5-8.0)
--- OUTSIDE RECORDS SUMMARY | 2025-03-28 11:10 | XMS_ITS | Data Portability ---
Author Organization [place] - [facility], All[facility] Address [address] [facility] [address] [place] [address] Care Team Providers Care Batch Unloader Name Role Phone LUIS M GILLIAM Primary Care Provider Assessment Encounter Date Assessment Date Assessment LastModified by Organization Details LastModified Time 05/28/2024 05/28/2024 58 year old female with SNHL and TMJ presents for evaluation of ear blockage bilaterally. Otologic exam demonstrates TMs are intact with well-aerated middle ear spaces. EACs without obstruction. Tympanometry is type A bilaterally. Her hearing aids from [facility] were sent for adjustment. Recommend she trial the adjusted hearing aids. She will return for audiometric testing if abnormal auditory perception persists. Today we spent some time talking about the fact that cerumen is a natural antibiotic, antifungal, seed laboratory technician, and moisturizer of the delicate external [...] Sensorine ural hearing loss of bilateral ears [id number] Active 2018 Sensorine ural hearing loss, bilateral ; Note: Date Diagnosed : 03/28/2019 3:34 PM (H90.3) Not Available [facility] 4 02:33:25 Abrasion of skin of left ear 13775459056 352552 Active 2018 Abrasion of left ear, initial encounter ; Note: Date Diagnosed : 03/28/2019 2:58 PM (S00.412A ) Not Available [facility] 4 02:33:25 Foreign body in left ear [id number] 026818 Active 2018 Foreign body in left ear, initial encounter ; Note: Date Diagnosed : 03/28/2019 2:58 PM (T16.2XXA ) Not Available [facility] 4 02:33:35 Pain of right temporoma ndibular joint 11763751968 514949 Active 2019 Arthralgi a of right temporoma ndibular joint; Note: Date Diagnosed : 0 3:09 PM (M26.621) Not Available [facility] 4 02:33:24 Bilateral temporoma ndibular joint pain [id number] 300083 Active 2021 Arthralgi a of bilateral temporoma ndibular joint; Note: Date Diagnosed : 08/26/2021 4:41 PM (M26.623) Not Available [facility] 4 02:33:30 Abnormal auditory perceptio n 17739613 Active 2023 Leonie wharton [place] - [facility] 4 10:43:01 Problem Notes None recorded. Procedures Surgical History Date Name Laterality Status Provider Name and Address Organization Details Recorded Time 05/28/20 24 Tympanometry - 67835 completed Leonie Peña [place] - [facility] 05/28/2024 10:42:54 Imaging Results None recorded. Procedure Notes None recorded. Medical Equipment None Reported. Allergies Allergen ID Allergen Name Allergen Category Reaction Reaction Severity Criticality Documentation Date Start Date Code Code System Note Provider Name and Address Organization Details Recorded Time 54831 penicilli n V potassium medicatio n other Not available Not available 11/14/2023 5 RxNorm React ion: unkno wn, unspe cifie d;; Not Available [facility] 01:04[facility] Medications Name Sig Start Date Stop Date Status Note LastModified by Organization Details LastModified Time cyclobenz aprine 10 mg tablet 2018 active Medicati on ID: [id number] D uration Value: 20 Brand Name: tish smith Send Method: E-Prescr ibed Sub s Allowed: subs OK Medic ationGen ericName : tish smith Not Available Not Available Not Available atorvasta [...] mg tablet 05/28 completed Medicati on ID: [id number] D uration Value: 30 Brand Name: atorvast [...] mg tablet 05/28 completed Medicati on ID: [id number] B rand Name: ciproflo xacin HCl Send Method: E-Prescr ibed Sub s Allowed: subs [place] [facility] : ciproflo xacin HCl Not Available [...] ear drops 05/28 completed Medicati on ID: [id number] B rand Name: ofloxaci n Send Method: [...] mg tablet 2018 active Medicati on ID: [id number] D uration Value: 30 Brand Name: metoclop ramide HCl Send Method: E-Prescr ibed Sub s Allowed: subs OK Speci al Instruct ion: TOME DIANA TABLETA TODOS LOS D? Med [facility] me: metoclop ramide HCl Not Available Not [...] injection solution 05/28 completed Medicati on ID: [id number] B rand Name: cyanocob alamin (vitamin B-12) Se nd Method: E-Prescr ibed Sub s Allowed: subs OK Medic ationGen ericName : cyanocob alamin (vitamin B-12) Not Available Not Available Not Available esomepraz ole magnesium 40 mg capsule,d elayed release active Not Available Not Available Not Available omeprazol e 20 mg capsule,d elayed release 2018 active Medicati on ID: [id number] D uration Value: 30 Brand Name: omeprazo [...] completed Not Available Not Available Not Available [place] Saline 0.65 % nasal spray aerosol 05/28 completed Medicati on ID: [id number] B rand Name: [place] Saline S end Method: E-Prescr ibed Sub s Allowed: subs OK Medic ationGen ericName : [place] Saline Not Available Not Available Not Available [...] pen injector 2018 active Medicati on ID: [id number] D uration Value: 28 Brand Name: Skyler villaseñor Send Method: E-Prescr ibed Sub s Allowed: subs OK Medic ationGen ericName : Jarrodulicit y Not Available Not Available Not Available [...] Diagnosis SNOMED-CT Code Diagnosis ICD10 Code Diagnosis IMO Codes Diagnosis Note [id number] GERARDO METZ PA-C [facility] [address] [address] 05/28/2024 10:13:26 05/28/2024 11:00:06 Abnormal auditory perception [id number] H93.299 Tympanomet ry: Right Ear:Type A Left Ear:Type A Bilateral temporomandibular joint pain [id number] 1399286 M26.623 Sensorineu ral hearing loss of bilateral ears 661219435 H90.3 Health Concerns Section Related Observation LastModified by Organization Detai ls LastModified Time None Recorded Concern Status LastModified by Organization Details LastModified Time None Recorded Advance Directives Directive None Recorded Payers Insurance Date Sequence Insurance Name Policy Number Policy Gamino Covered Member ID Gamino Member ID Guarantor Name 05/28/2024 1 [facility] - HEALTH NET PLAN (MEDICAID HMO) JAIDEN Durham [id number] Mellisa Durham Notes Date Note Type Note Provider Name and Address Organization Details Recorded Time 05/28/2024 text/html ROS as noted in the HPI 58 year old female presents for evaluation [...] ear infections. She has hearing aids from [facility] that she recently sent for adjustments. She has not worn them in 2 years. Occasional buzzing sounds bilaterally. MERRILL IRIZARRY MD [address] [place] [address], [place], [address], [facility] - [facility] 05/28/2024 17:20:37 OBGyn Episode No OBEpisode recorded.
--- OUTSIDE RECORDS SUMMARY | 2025-03-28 11:10 | XMS_ITS | Clinical Summary ---
Author Organization [facility] Address [address] [place] [address] Care Team Providers Care General Neurologist Name Role Phone Unavailable Primary Care Provider [...] Drug Screen 07/03/2024 Depression Annual Screen 07/03/2024 [id number] ( season) 2025 11/04/2020, 10/07/2020 Imm-Influenza (#1) 2025 04/04/2019, 05/30/2018 Imm-DTaP/Tdap/Td (2 - Td or Tdap) 01/06/2030 01/07/2020, 07/08/2015 Cervical Ablation/Cold-Knife Conization Discontinued Cervical Cryotherapy Discontinued Colposcopy Discontinued Endometrial Biopsy Discontinued Excision/Leep Discontinued HPV Genotyping Discontinued Imm-Hepatitis B Aged Out No longer el igible based on patient's age to complete this topic Vaginal Pap Discontinued Vulvoscopy Discontinued Insurance [employer] PLAN Member Subscriber Plan / Payer (Ef fective 2020-Present) Name:Mellisa Durham Relation to Subscriber:Self Name:Mellisa Durham Payer ID:[id number] Group ID:[id number] Type:Medicaid Address: [facility] [address] [place] [address]
--- OUTSIDE RECORDS SUMMARY | 2025-03-28 11:10 | XMS_ITS | Clinical Summary ---
[facility] Address [address] [place] [address] Care Team Providers Care Chief Investment Officer Name Role Phone Unavailable Primary Care Provider [...]
--- NOTE | 2025-03-28 11:33 | PC.NURSE ---
patient a&ox3, vss, rr equal/non labored, pt c/o 01/09 pain to abdomen, labs previously drawn, pt requesting tylenol for pain- will notify provider
[2025-03-28 11:44] VITALS: BP 139/73; PULSE 65; O2SAT 99
[2025-03-28] MEDS: iohexoL 350 MG/ML 100 ML INFUS..BTL IV (12:33)
--- NOTE | 2025-03-28 12:45 | ED_ITS ---
HPI - Abdominal Pain General Chief Complaint: Abdominal Pain Stated Complaint: rt sided pain, hernia? 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 uBndy and now presenting with a she describes worsening abdominal pain and distention around the hernia site, she feels a lump in the right midabdomen and gone up to her ribs, no chest pain no fevers or chills no nausea no vomiting no hematuria no dysuria. No hematemesis hematochezia reported. Related Data Home Medications ?Medication ?Instructions ?Recorded ?Confirmed zolpidem 5 mg tablet 5 mg PO BEDTIME 04/16/20 lorazepam 0.5 mg tablet 0.5 mg PO BID-TID PRN Anxiet y 08/26/24 03/17/25 atorvastatin 40 mg tablet 40 mg PO DAILY 08/28/2403/03 fluticasone propionate 50 1 spray intranasal DAILY PRN 08/28/24 03/17/25 mcg/actuation nasal Allergy Symptoms spray,suspension (Flonase Allergy Relief) solifenacin 5 mg tablet (Vesicare) 5 mg PO DAILY PRN B ladder Spasms 08/28/24 03/17/25 sertraline 100 mg tablet mg PO DAILY PRN 02/06/25 Previous Rx's ?Medication ?Instructions ?Recorded heating pads #1 ea 05/31/22 nebulizer accessories #1 ea 11/30/22 blood-glucose meter (FreeStyle #1 ea 12/21/22 Lite Meter kit) nebulizers (AeroEclipse II #1 ea 03/30/23 Nebulizer) incontinence pad, liner, disp #60 ea 10/07/23 toilet seat elevator #1 ea 10/23/23 Shower Chair #1 ea 02/05/24 acetone (urine) test (Ketone Urine #50 ea 04/25/24 Test strips) blood sugar diagnostic (FreeStyle #150 ea 04/25/24 Lite Strips) lancets 28 gauge (FreeStyle #100 ea 04/25/24 Lancets) albuterol sulfate 2.5 mg/3 mL 2.5 mg (3 mL) inhalation Q4-6H PRN 04/29/24 (0.083 %) solution for nebulization bronchospasm #75 m L ketorolac 10 mg tablet 10 mg PO TID PRN pain #10 ta bs 07/01/24 blood-glucose sensor (FreeStyle #2 ea 08/21/24 Sandra 3 Plus Sensor device) pen needle, diabetic 32 gauge x #200 ea 08/21/24 (BD Sondra 2nd Gen Pen Needle) simethicone 125 mg capsule 125 mg PO BID-QID PRN abdom inal 09/23/24 distention #120 caps cholecalciferol (vitamin D3) 25 25 mcg PO DAILY 90 day s #90 tabs 12/15/24 mcg (1,000 unit) tablet (Vitamin D3) pioglitazone 45 mg tablet 45 mg PO DAILY 90 days #90 t abs 12/15/24 compression stockings knee high #2 ea 12/16/24 montelukast 10 mg tablet 10 mg PO DAILY #90 tabs 12/02 12/25 hydrochlorothiazide 12.5 mg tablet 12.5 mg PO QAM 90 d ays #90 tabs 01/08/25 cyanocobalamin (vitamin B-12) 500 500 mcg sublingual D AILY 90 days 01/26/25 mcg disintegrating #90 tabs tablet,sublingual levalbuterol tartrate 45 2 puff inhalation Q4-6H PRN 02/14/25 mcg/actuation aerosol inhaler shortness of breath 30 d ays #15 (Xopenex HFA) grams bisacodyl 5 mg tablet,delayed 20 mg (4 x 5 mg) PO ONCE 03/04/25 release (Dulcolax (bisacodyl)) constipation 1 day #4 t abs esomeprazole magnesium 40 mg 40 mg PO DAILY #90 caps 0 03/04/25 capsule,delayed release (Nexium) famotidine 20 mg tablet (Pepcid) 20 mg PO BEDTIME #90 tabs 03/04/25 polyethylene glycol 3350 17 238 g PO ONCE #238 grams 0 03/04/25 gram/dose oral powder (Miralax) sennosides 8.6 mg tablet (senna) 17.2 mg (2 x 8.6 mg) PO BEDTIME 03/04/25 PRN for constipation #180 tabs cetirizine 10 mg tablet (Zyrtec) 10 mg PO DAILY PRN al lergy 03/10/25 symptoms #30 tabs fluticasone propionate 230 2 puff inhalation BID #12 g william 03/10/25 mcg-salmeterol 21 mcg/actuation HFA inhaler (Advair HFA) albuterol sulfate 90 mcg/actuation 2 puff inhalation Q 4-6H PRN 03/11/25 aerosol inhaler shortness of breath or wheez ing #8.5 grams Lantus Solostar U-100 Insulin 100 38 unit (0.38 mL) rivero bcut DAILY 90 03/17/25 unit/mL (3 mL) subcutaneous pen days #34.2 mL (insulin glargine) insulin aspart U-100 100 unit/mL 28 unit (0.28 mL) sub cut TID 90 03/17/25 (3 mL) subcutaneous pen days #75.6 mL Allergies Allergy/AdvReac Type Severity Reaction Status Date / Time Penicillins Allergy Mild RASH/DYSPNE Verified 03/28/25 09:39 A canagliflozin (From Invokana) AdvReac Severe uti Verified 03/28/25 09:39 metformin AdvReac Intermediate stomach Verified 03/28/25 09:39 upset mounjaro AdvReac Intermediate Abdominal Uncoded 03/17/25 09:24 Pain trulicity AdvReac Intermediate Abdominal Uncoded 03/17/25 09:24 Pain Review of Systems Constitutional: Reports as per HPI [facility] Past Medical History Medical History Supraumbilical hernia Ear discomfort Palpitations Overweight Type 2 diabetes mellitus with diabetic polyneuropathy B12 deficiency DM2 (diabetes mellitus, type 2) Tubular adenoma Moderate recurrent major depression Dyslipidemia Umbilical hernia Edema Arthritis Ear pain snf (current) use of insulin Pernicious anemia Insomnia Depression with anxiety Moderate asthma Essential hypertension Polyarthralgia GERD (gastroesophageal reflux disease) Type 2 diabetes mellitus with other diabetic neurological complication Diabetes Hearing loss Surgical History Hx of bilateral cataract extraction History of esophagogastroduodenoscopy (EGD) H/O colonoscopy History of cholecystectomy History of umbilical hernia repair History of foot surgery History of carpal tunnel release History of surgery on arm History of endometrial ablation History of tubal ligation Family History Family History Mother Breast cancer Paternal Grandmother Breast cancer Brother Colon cancer Family/Other FH: mental illness Mental health disorder Father CAD (coronary artery disease) Social History Social History Household Members: Children Housing: Apartment Are you a primary urgent care physician to a significant other at home: No 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) Alcohol intake: never Patient Tobacco Use Status: Never used Tobacco Smoked in Last 30 Days: No e-Cigarette/Vaping Use: Never Used Second Hand Smoke Exposure: No Use of substances other than those prescribed or required for medical reasons: No Advance Directives: No Advance Directives Information Provided: Yes Patient : No service: No Current occupational status: disabled Current occupation: Right hand dominate Cognitive needs: No Hearing needs: No Vision needs: Yes Physical Exam ED Vital Signs: Vital Signs - 24 hr 03/28/25 09:35 03/28/25 11:44 Temperature 97.9 F Pulse Rate 69 65 Respiratory Rate 18 Blood Pressure 144/65 H 139/73 Pulse Oximetry 98 99 Oxygen Delivery Method Room Air Room Air BMI result Body Mass Index 30.0 Const Other: * Gen: ?Overall well-appearing patient * HEENT: PERRLA, EOMI, MMM, * Neck: Supple, no LAD * CV: RRR, no obvious murmurs appreciated * Resp: ?No wheezing rales rhonchi no stridor moving air well * Abd: ?Bowel sounds are present, slight tenderness there is likely hernia on the right mid abdomen, she also has some tenderness along right paraspinal muscles without CVA tenderness, no rebound no rigidity however * MSK: FROM, strength 5/5 all extremities * Skin: Warm, dry, intact, * Neuro: ?Alert and oriented x3, moving upper and lower extremities symmetrically, no obvious facial asymmetry noted Medical Decision Making Medical Decision Making MDM Narrative: 12:49 PM 03/28/2025 (Dr. Abdulaziz Fuentes): Patient had a hernia repair in August of 2024 and then followed up with Dr. Bundy in January of 2025 for new hernia and was supposed to have a CT done that date by the do not see with that report, presenting with feeling a lump for the past 2 weeks, without obstructive patterns, we will obtain imaging, chest x-ray of the obtained to make sure there was no hiatal hernia or pneumothorax and chest x-ray looks reassuring, she is not having any cardiac issues, other considerations include pancreatitis, cholecystitis, LFTs we will be obtained. She just requested acetaminophen for pain on otherwise her abdominal exam is quite benign. If there are no acute findings on CT I am going to recommend she follow up with her surgeon as she already had plan for surgery according to my notes review Differential Diagnosis Differential Diagnoses: The differential diagnosis associated with the presentation includes Admission/Observation Consideration of admission/observation: Escalation of care including admission/observation considered Lab Data MDM Lab Attestation statement: I reviewed the patient's lab results. 03/28/25 09:54 03/28/25 09:54 Labs: Lab Results 03/28/25 Range/Units 09:54 WBC 6.3 (4.8-10.8) X10*3/uL RBC 4.74 (4.20-5.50) X10*6/uL Hgb 13.6 (12.0-16.0) g/dl Hct 41.1 (37.0-47.0) % MCV 86.7 (80.0-98.0) fL MCH 28.7 (27.0-33.0) pg MCHC 33.1 (31.0-35.0) g/dl RDW 13.1 (11.0-16.0) % Plt Count 115 L (160-400) X10*3/uL MPV 11.8 (9.4-12.3) fL Immature Gran % (Auto) 0.3 (0.0-0.4) % Neut % (Auto) 58.7 (45-73) % Lymph % (Auto) 31.2 (20-40) % [place] % (Auto) 7.3 (2-11) % Eos % (Auto) 1.6 (0-4) % Baso % (Auto) 0.9 (0-2) % Lymph # (Auto) 2.0 (1.2-4.9) X10*3/uL [place] # (Auto) 0.5 (0.1-1.2) X10*3/uL Eos # (Auto) 0.1 (0.0-0.4) X10*3/uL Baso # (Auto) 0.1 (0.0-0.2) X10*3/uL Abs Immat Gran (auto) 0.02 (0.00-0.03) X10*3/uL Absolute Neuts (auto) 3.7 (2.0-8.3) x10*3/uL Absolute Nucleated RBC 0.000 (0.0-0.012) X10*3/uL Nucleated RBC % (auto) 0.0 (0.0-0.2) /100WBC Sodium 141 (135-145) mmol/L Potassium 4.1 (3.3-5.1) mmol/L Chloride 106 (96-108) mmol/L Carbon Dioxide 28 (22-29) mmol/L Anion Gap 11 L (12-20) BUN 20 H (9-16) mg/dL Creatinine 0.65 (0.5-1.4) mg/dL Estim Creat Clear Calc 87.0 Estimated GFR > 60 Random Glucose 224 H (60-115) mg/dL Calcium 9.4 (8.4-10.2) mg/dL Total Bilirubin 0.5 (0.0-1.0) mg/dL AST 44 H (5-31) U/L ALT 42 H (0-31) U/L Alkaline Phosphatase 60 (39-117) U/L Total Protein 7.1 (6.5-8.0) g/dL Albumin 4.1 (3.5-5.0) g/dL Lipase 44 (8-78) U/L Urine Color Yellow Urine Appearance Clear Urine pH 5.5 (5.0-9.0) Ur Specific [place] 1.020 (1.005-1.025) Urine Protein Negative (Neg-Trace) mg/dL Urine Glucose (UA) 100 H (Negative) mg/dL Urine Ketones Negative (Negative) mg/dL Urine Blood Negative (Negative) Urine Nitrite Negative (Negative) Ur Leukocyte Esterase Trace H (Negative) Urine RBC 0-2 (0-2) /HPF Urine WBC 0-5 (0-5) /HPF Ur Squamous Epith Cells 0-2 (0-2) /HPF Urine Bacteria None Seen (None Seen) Hyaline Casts 0-2 (0-2) /LPF Radiology Impression Discussion of test interpretation with radiology: I have reviewed the radiologist's reading. Radiologist Impression: Right periumbilical hernia containing normal density adipose tissue cephalad to a focal area of probable scar tissue. Hepatic steatosis, mild. External Record Review External record reviewed: Office record Medications Administered Discontinued Medications Generic Name Dose Route Start Last Admin Trade Name Veronica PRN Reason Stop Dose Admin Acetaminophen 975 mg 03/28/25 11:43 03/28/25 11:46 Acetaminophen 325 Mg Tablet PO 03/28/25 11:44 975 mg ONCE ONE Administration Iohexol 100 ml 03/28/25 12:33 03/28/25 12:33 Iohexol 350 Mg/Ml 100 Ml Infus..Btl IV 03/28/25 12:34 85 ml ONCE ONE Administration Discharge Plan Discharge Clinical Impression: Periumbilical hernia Patient Disposition: Home, Self-Care Instructions: Umbilical Hernia (ED) Additional Instructions: Your blood work, urinalysis and physical examination was reassuring, you do have periumbilical hernia and there is some fat entrapment that is causing discomfort you can use either ibuprofen or Tylenol, warm compresses to this area, I would like you to follow up with the your surgeon for this I saw that you has been seeing Dr. Bundy in January but I did not see a follow up visit. Inability to pass gas, significant abdominal distention come back to the ER otherwise there was no surgical emergency based on your CT at this time. But you will need to follow up with your surgeon. Prescriptions: No Action (DME) heating pads Pad See Rx Instructions .Route Qty: 1 0RF Rx Instructions: As directed (DME) blood-glucose meter [FreeStyle Lite Meter] Kit See Rx Instructions .ROUTE .MEDSUPPLY Qty: 1 0RF Rx Instructions: use as directed to test blood sugar 4x per day (DME) nebulizers [AeroEclipse II Nebulizer] Misc See Rx Instructions .Route Qty: 1 0RF Rx Instructions: As directed (DME) incontinence pad, liner, disp Pad See Rx Instructions .Route Qty: 60 11RF Rx Instructions: Use 1 pad twice a day (DME) Shower Chair Misc See Rx Instructions .Route Qty: 1 0RF Rx Instructions: As directed albuterol sulfate 2.5 mg /3 mL (0.083 %) solution for nebulization 2.5 mg inhalation Q4-6H PRN (Reason: bronchospasm) Qty: 75 0RF simethicone 125 mg capsule 125 mg PO BID-QID PRN (Reason: abdominal distention) Qty: 120 3RF cholecalciferol (vitamin D3) [Vitamin D3] 25 mcg (1,000 unit) tablet 25 mcg PO DAILY 90 Days Qty: 90 3RF pioglitazone 45 mg tablet 45 mg PO DAILY 90 Days Qty: 90 2RF montelukast 10 mg tablet 10 mg PO DAILY Qty: 90 3RF hydrochlorothiazide 12.5 mg tablet 12.5 mg PO QAM 90 Days Qty: 90 2RF cyanocobalamin (vitamin B-12) 500 mcg tablet,disintegrating 500 mcg sublingual DAILY 90 Days Qty: 90 1RF levalbuterol tartrate [Xopenex HFA] 45 mcg/actuation HFA aerosol inhaler 2 puff inhalation Q4-6H PRN (Reason: shortness of breath) 30 Days Qty: 15 1RF albuterol sulfate 90 mcg/actuation HFA aerosol inhaler 2 puff inhalation Q4-6H PRN (Reason: shortness of breath or wheezing) Qty: 8.5 0RF ketorolac 10 mg tablet 10 mg PO TID PRN (Reason: pain) Qty: 10 0RF Rx Instructions: Do not use this medication with any other NSAIDs atorvastatin 40 mg tablet 40 mg PO DAILY fluticasone propionate [Flonase Allergy Relief] 50 mcg/actuation spray,suspension 1 spray intranasal DAILY PRN (Reason: Allergy Symptoms) Rx Instructions: administer into each nostril solifenacin [Vesicare] 5 mg tablet 5 mg PO DAILY PRN (Reason: Bladder Spasms) zolpidem 5 mg tablet 5 mg PO BEDTIME (DME) toilet seat elevator See Rx Instructions .Route .MEDSUPPLY Qty: 1 0RF Rx Instructions: As directed (DME) nebulizer accessories Mis See Rx Instructions .Route Qty: 1 0RF Rx Instructions: NEBULIZER FACE MASK ADULT, USE DIRECTED (DME) Ketone Urine Test Strip See Rx Instructions .Route Qty: 50 5RF Rx Instructions: As directed [place] [place] FreeStyle Lite Strips Strip See Rx Instructions .ROUTE .MEDSUPPLY Qty: 150 11RF Rx Instructions: As directed four times a day (DME) lancets [FreeStyle Lancets] 28 gauge misc See Rx Instructions .ROUTE .MEDSUPPLY Qty: 100 11RF Rx Instructions: every 4 hours prn dispense as 32 gauge if avil fluticasone propion-salmeterol [Advair HFA] 230-21 mcg/actuation HFA aerosol inhaler 2 puff inhalation BID Qty: 12 6RF cetirizine [Zyrtec] 10 mg tablet 10 mg PO DAILY PRN (Reason: allergy symptoms) Qty: 30 2RF lorazepam 0.5 mg tablet 0.5 mg PO BID-TID PRN (Reason: Anxiety) (DME) FreeStyle Sandra 3 Plus Sensor Device See Rx Instructions .ROUTE .MEDSUPPLY Qty: 2 11RF Rx Instructions: continuous sensor reapply every 15 days (DME) pen needle, diabetic [BD Sondra 2nd Gen Pen Needle] 32 gauge x 5/32 needle See Rx Instructions .ROUTE .MEDSUPPLY Qty: 200 6RF Rx Instructions: 4 times daily esomeprazole magnesium [Nexium] 40 mg capsule,delayed release(DR/EC) 40 mg PO DAILY Qty: 90 3RF famotidine [Pepcid] 20 mg tablet 20 mg PO BEDTIME Qty: 90 3RF sennosides [senna] 8.6 mg tablet 17.2 mg PO BEDTIME PRN (Reason: for constipation) Qty: 180 1RF bisacodyl [Dulcolax (bisacodyl)] 5 mg tablet,delayed release (DR/EC) 20 mg PO ONCE 1 Days Qty: 4 0RF Rx Instructions: take 4 tabs at noon the day before your colonoscopy polyethylene glycol 3350 [Miralax] 17 gram/dose powder 238 g PO ONCE Qty: 238 0RF Rx Instructions: As directed by gastroenterology department at [facility] (DME) compression stockings knee high 30 mmHg See Rx Instructions .Route .MEDSUPPLY Qty: 2 3RF Rx Instructions: As directed sertraline 100 mg tablet PO DAILY PRN insulin glargine [Lantus Solostar U-100 Insulin] 100 unit/mL (3 mL) insulin pen 38 unit subcut DAILY 90 Days Qty: 34.2 3RF insulin aspart U-100 100 unit/mL (3 mL) insulin pen 28 unit subcut TID 90 Days Qty: 75.6 4RF Referrals: Ronald Bundy MD [Physician, General Surgery] - 10 days Clinical Impression: Periumbilical hernia Print Language: Cambodian
[2025-03-28 13:36] VITALS: BP 142/76; PULSE 68; RESP 18; TEMP 36.7; O2SAT 99
== END 2025-03-28 13:38 | disposition home or self-care (01) ==
PROVIDERS: Emergency Provider Emergency Medicine; PCP Internal Medicine
DX: R10.9 Unspecified abdominal pain (principal); K42.9 Umbilical hernia without obstruction or gangrene; E11.9 Type 2 diabetes mellitus without complications; Z79.899 Other long term (current) drug therapy
CPT/HCPCS: 36415; 71046; 74177; 80053; 81001; 83690; 85025; 99285; Q9967

== ENCOUNTER → 2025-03-28 09:40 | Outpatient (BNV) | payer OTHER, SELFPAY | PROVIDERS: PCP Internal Medicine; Visit Provider Radiology Diagnostic Radiology | DX: K42.9 Umbilical hernia without obstruction or gangrene (principal); K76.0 Fatty (change of) liver, not elsewhere classified; R22.2 Localized swelling, mass and lump, trunk | CPT/HCPCS: 71046; 74177 ==

== ENCOUNTER 2025-03-31 10:05 | Outpatient (AMB) | payer OTHER, SELFPAY ==
[2025-03-31 10:07] VITALS: BP 110/68; PULSE 66; O2SAT 97; BMI 30.5
--- NOTE | 2025-03-31 10:07 | A.OFFVIS_ITS ---
Vital Signs 03/31/25 10:07 Height 5 ft 2 in Weight 167 lb BMI 30.5 BP 110/68 Blood Pressure Location Rt brachial Position Sitting Pulse 66 Pulse Source Pulse Oximeter Pulse Oximetry (%) 97 Oxygen Delivery Method Room Air Intake Visit Reasons: 5/12LVM+Let INP-Polyneuropathy Intake Note: Polyneuropathy - unspecified District Branch Manager Required: Yes District Branch Manager Services: District Branch Manager Present District Branch Manager Name: iPad - Nate Henderson [id number] Accompanied by: Self / Same As Patient Allergies Penicillins Allergy (Mild, Verified 03/28/25 09:39) RASH/DYSPNEA canagliflozin (From Invokana) Adverse Reaction (Severe, Verified 03/28/25 09:39) uti metformin Adverse Reaction (Intermediate, Verified 03/28/25 09:39) stomach upset mounjaro Adverse Reaction (Intermediate, Uncoded 03/17/25 09:24) Abdominal Pain trulicity Adverse Reaction (Intermediate, Uncoded 03/17/25 09:24) Abdominal Pain HPI Comments Details: 59y/o female comes for further management of neuropathy cv rn she has h/o diabetes for 25 years now and has been on insulin.For the past 5 years she has been having numbness tingling in her feet and is slowly worsening.she also has some symptoms in the hand. she also reports some gait issues , feels off balance. she has on and off burning, electric shock like senstaion in her feet. 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 Pernicious anemia Insomnia Depression with anxiety Moderate asthma Essential hypertension Polyarthralgia GERD (gastroesophageal reflux disease) Type 2 diabetes mellitus with other diabetic neurological complication Diabetes Hearing loss Surgical History Hx of bilateral cataract extraction History of esophagogastroduodenoscopy (EGD) H/O colonoscopy History of cholecystectomy History of umbilical hernia repair History of foot surgery History of carpal tunnel release History of surgery on arm History of endometrial ablation History of tubal ligation Family History Mother Breast cancer Paternal Grandmother Breast cancer Brother Colon cancer Family/Other FH: mental illness Mental health disorder Father CAD (coronary artery disease) Social History Household Members: Children Housing: Apartment Are you a primary health care / medical job titles to a significant other at home: No 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) Alcohol intake: never Patient Tobacco Use Status: Never used Tobacco e-Cigarette/Vaping Use: Never Used Second Hand Smoke Exposure: No service: No Current occupational status: disabled Current occupation: Right hand dominate Cognitive needs: No Hearing needs: No Vision needs: Yes Female Reproductive History Menstrual Age of Menarche: 11 Physical Exam Vital Signs: Last Vital Signs Pulse 66 03/31/25 10:07 BP 110/68 03/31/25 10:07 Pulse Ox 97 03/31/25 10:07 Oxygen Delivery Method Room Air 03/31/25 10:07 BMI result Body Mass Index 30.5 Const General: cooperative and comfortable Nutritional Appearance: average body habitus Orientation/consciousness: patient oriented x3 Eyes Pupils: Equal, round and reactive pupils present Neuro Other: decreased pin prick, light touch in lower third of legs General: patient oriented x3, gait normal, tone normal, moves all extremities and no focal motor deficits Cranial nerves: Yes Facial sensation intact/muscles of mastication intact, Yes Equal, round and reactive pupils present, Yes Bilaterally intact EOM present, Yes Nystagmus not present, Yes Normal facial strength present, Yes Midline tongue present and Yes Ability to bilaterally elevate shoulders present Cognition (Neuro): normal cognition Gait exam (Neuro): Antalgic gait present Motor exam (neuro): 5/5 motor strength present throughout and Normal motor muscle tone present throughout Deep tendon reflexes (DTR's): Right triceps reflex intensity grade: 1+, Left triceps reflex intensity grade: 1+, Rt Biceps (C5, C6): 1+, Left biceps reflex intensity grade: 1+, Right brachioradialis reflex intensity grade: 1+, Left brachioradialis reflex intensity grade: 1+, Right patellar reflex intensity grade: 1+ and Left patellar reflex intensity grade: 1+ Assessment & Plan Assessment & Plan (1) Axonal neuropathy: Comment: diabetic neuropathy Code(s): G62.89 - Other specified polyneuropathies Category: Medical Plan I will start her on B complex and alpha lipoic acid continue Vit B 12 Discussed about good diabetic control to help with preventing worsening of her neuropathy Medications: New alpha lipoic acid 600 mg PO DAILY 90 tabs 6RF vitamin B complex ER (Complex B-100 tablet,extended release) 1 tab PO DAILY 90 tabs 6RF Coding Level of Care Code New Pt Level 4 (94959) Diagnoses Axonal neuropathy G62.89
--- OUTSIDE RECORDS SUMMARY | 2025-03-31 11:14 | XMS_ITS | Data Portability ---
Author Organization [place] - [facility], Allergy Address [address] [place] [address] Care Team Providers Care Feller Seam Operator Name Role Phone LUIS M GILLIAM Primary Care Provider [phone] Assessment Encounter Date Assessment Date Assessment LastModified by Organization Details LastModified Time 05/28/2024 05/28/2024 58 year old female with SNHL and TMJ presents for evaluation of ear blockage bilaterally. Otologic exam demonstrates TMs are intact with well-aerated middle ear spaces. EACs without obstruction. Tympanometry is type A bilaterally. Her hearing aids from [facility] were sent for adjustment. Recommend she trial the adjusted hearing aids. She will return for audiometric testing if abnormal auditory perception persists. Today we spent some time talking about the fact that cerumen is a natural antibiotic, antifungal, lath tier, and moisturizer of the delicate external auditory [...] Sensorine ural hearing loss of bilateral ears [id number] Active 2018 Sensorine ural hearing loss, bilateral ; Note: Date Diagnosed : 03/28/2019 3:34 PM (H90.3) Not Available [facility] 4 02:33:25 Abrasion of skin of left ear [id number] 389583 Active 2018 Abrasion of left ear, initial encounter ; Note: Date Diagnosed : 03/28/2019 2:58 PM (S00.412A ) Not Available [facility] 4 02:33:25 Foreign body in left ear [id number] 654539 Active 2018 Foreign body in left ear, initial encounter ; Note: Date Diagnosed : 03/28/2019 2:58 PM (T16.2XXA ) Not Available [facility] 4 02:33:35 Pain of right temporoma ndibular joint 86889106242 667355 Active 2019 Arthralgi a of right temporoma ndibular joint; Note: Date Diagnosed : 0 3:09 PM (M26.621) Not Available [facility] 4 02:33:24 Bilateral temporoma ndibular joint pain [id number] 060045 Active 2021 Arthralgi a of bilateral temporoma ndibular joint; Note: Date Diagnosed : 08/26/2021 4:41 PM (M26.623) Not Available [facility] 4 02:33:30 Abnormal auditory perceptio n 62558051 Active 2023 Leonie wharton [place] - [facility] 4 10:43:01 Problem Notes None recorded. Procedures Surgical History Date Name Laterality Status Provider Name and Address Organization Details Recorded Time 05/28/20 24 Tympanometry - 92907 completed Leonie Peña [place] - [facility] 05/28/2024 10:42:54 Imaging Results None recorded. Procedure Notes None recorded. Medical Equipment None Reported. Allergies Allergen ID Allergen Name Allergen Category Reaction Reaction Severity Criticality Documentation Date Start Date Code Code System Note Provider Name and Address Organization Details Recorded Time 88264 penicilli n V potassium medicatio n other Not available Not available 11/14/2023 5 RxNorm React ion: unkno wn, unspe cifie d;; Not Available [facility] 01:04:04 Medications Name Sig Start Date Stop Date Status Note LastModified by Organization Details LastModified Time cyclobenz aprine 10 mg tablet 2018 active Medicati on ID: [id number] D uration Value: 20 Brand Name: tish [...] mg tablet 05/28 completed Medicati on ID: [id number] D uration Value: 30 Brand Name: atorvast [...] mg tablet 05/28 completed Medicati on ID: [id number] B rand Name: ciproflo xacin HCl Send Method: E-Prescr ibed Sub s Allowed: subs [place] [facility] c[facility]flo xacin HCl Not Available [...] ear drops 05/28 completed Medicati on ID: [id number] B rand Name: ofloxaci n Send Method: [...] mg tablet 2018 active Medicati on ID: [id number] D uration Value: 30 Brand Name: metoclop ramide HCl Send Method: E-Prescr ibed Sub s Allowed: subs [place] Speci al Instruct ion: TOME DIANA TABLETA TODOS LOS D? Med [facility] me: metoclop ramide HCl Not Available Not [...] injection solution 05/28 completed Medicati on ID: [id number] B rand Name: cyanocob alamin (vitamin B-12) Se nd Method: E-Prescr ibed Sub s Allowed: subs [place] Medic [facility] ericName : cyanocob alamin (vitamin B-12) Not Available Not Available Not Available esomepraz ole magnesium 40 mg capsule,d elayed release active Not Available Not Available Not Available omeprazol e 20 mg capsule,d elayed release 2018 active Medicati on ID: [id number] D uration Value: 30 Brand Name: omeprazo [...] completed Not Available Not Available Not Available [place] Saline 0.65 % nasal spray aerosol 05/28 completed Medicati on ID: [id number] B rand Name: [place] Saline S end Method: E-Prescr ibed Sub s Allowed: subs [place] Medic ation[facility] ericName : [place] Saline Not Available Not Available Not Available [...] pen injector 2018 active Medicati on ID: [id number] D uration Value: 28 Brand Name: Skyler [...] ICD10 Code Diagnosis IMO Codes Diagnosis Note [id number] GERARDO METZ PA-C [facility] [address] [address] 05/28/2024 10:13:26 05/28/2024 11:00:06 Abnormal auditory perception [id number] H93.299 Tympanomet ry: Right Ear:Type A Left Ear:Type A Bilateral temporomandibular joint pain [id number] M26.623 Sensorineu ral hearing loss of bilateral ears [id number] H90.3 Health Concerns Section Related Observation LastModified by Organization Detai ls LastModified Time None Recorded Concern Status LastModified by Organization Details LastModified Time None Recorded Advance Directives Directive None Recorded Payers Insurance Date Sequence Insurance Name Policy Number Policy Gamino Covered Member ID Gamino Member ID Guarantor Name 05/28/2024 1 [facility] - HEALTH NET PLAN (MEDICAID HMO) JAIDEN Durham [id number] Mellisa Durham Notes Date Note Type Note [...] ear infections. She has hearing aids from [facility] that she recently sent for adjustments. She has not worn them in 2 years. Occasional buzzing sounds bilaterally. MERRILL IRIZARRY MD [address] [place] [address], [place], [address], [facility] - [facility] 05/28/2024 17:20:37 OBGyn Episode No OBEpisode recorded.
--- OUTSIDE RECORDS SUMMARY | 2025-03-31 11:14 | XMS_ITS | Clinical Summary ---
Author Organization [facility] Address [address] [place] [address] Care Team Providers Care Reducing System Operator Name Role Phone Unavailable Primary Care [...]
--- OUTSIDE RECORDS SUMMARY | 2025-03-31 11:14 | XMS_ITS | Clinical Summary ---
Author Organization [facility] Address [address] [place] [address] Care Team Providers Care Hardware Test Engineer Name Role Phone Unavailable Primary Care [...] Drug Screen 07/03/2024 Depression Annual Screen 07/03/2024 [id number] ( season) 2025 11/04/2020, 10/07/2020 Imm-Influenza (#1) 2025 04/04/2019, 05/30/2018 Imm-DTaP/Tdap/Td (2 - Td or Tdap) 01/06/2030 01/07/2020, 07/08/2015 Cervical Ablation/Cold-Knife Conization Discontinued Cervical Cryotherapy Discontinued Colposcopy Discontinued Endometrial Biopsy Discontinued Excision/Leep Discontinued HPV Genotyping Discontinued Imm-Hepatitis B Aged Out No longer el igible based on patient's age to complete this topic Vaginal Pap Discontinued Vulvoscopy Discontinued Insurance [employer] PLAN Member Subscriber Plan / Payer (Ef fective 2020-Present) Name:Mellisa Durham Relation to Subscriber:Self Name:Mellisa Durham Payer ID:[id number] Group ID:[id number] Type:Medicaid Address: [facility] [address] [place] [address]
== END 2025-03-31 10:49 | disposition home or self-care (01) ==
LOC: HO.HSMS 10:06
PROVIDERS: PCP Internal Medicine; Visit Provider Psychiatry & Neurology Neurology
DX: G62.89 Other specified polyneuropathies (principal)
CPT/HCPCS: 99204

== ENCOUNTER → 2025-03-31 10:05 | Outpatient (BNVA) | payer OTHER, SELFPAY | PROVIDERS: PCP Internal Medicine; Visit Provider Psychiatry & Neurology Neurology | DX: E11.21 Type 2 diabetes mellitus with diabetic nephropathy (principal); G62.89 Other specified polyneuropathies | CPT/HCPCS: 99202 ==

== ENCOUNTER 2025-04-07 12:43 | Outpatient (AMB) | payer OTHER, SELFPAY ==
[2025-04-07 12:46] VITALS: BMI 30.4
--- NOTE | 2025-04-07 12:46 | A.OFFVIS_ITS ---
Vital Signs 04/07/25 12:46 Height 5 ft 2 in Weight 166 lb 2 oz BMI 30.4 Intake Visit Reasons: Ct-Scan follow-up, ER 03/28/2025 Hernia Intake Note: This patient [place] [facility] [place] periumbilical hernia. Pt c/o; reports pain on the right side of her abdomen. ER visit: 03/28/2025 Modular Home Crew Member Required: Yes Modular Home Crew Member Language: Benchroom Shop Optician Services: Modular Home Crew Member Present Modular Home Crew Member Name: Jennifer Information Interpreted: non-clinical & clinical Accompanied by: Self / Same As Patient Allergies Penicillins Allergy (Mild, Verified 04/07/25 12:52) RASH/DYSPNEA canagliflozin (From Invokana) Adverse Reaction (Severe, Verified 04/07/25 12:52) uti metformin Adverse Reaction (Intermediate, Verified 04/07/25 12:52) stomach upset mounjaro Adverse Reaction (Intermediate, Uncoded 04/07/25 12:52) Abdominal Pain trulicity Adverse Reaction (Intermediate, Uncoded 04/07/25 12:52) Abdominal Pain HPI HPI Ct-Scan follow-up, ER 03/28/2025 Hernia: Details: [age] year old female here for a question of a new hernia above the umbilicus. She says she started noticing this last month. She denies any significant pain. She denies GI complaints She has a history of a repair of an umbilical hernia with mesh with Dr. Hernández in October,. The incision was infraumbilical then. She is a known diabetic. Her last hemoglobin A1c on record which was last 03/13/2025 was 9.7. She does state that she usually has good blood sugar control. 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 Pernicious anemia Insomnia Depression with anxiety Moderate asthma Essential hypertension Polyarthralgia GERD (gastroesophageal reflux disease) Type 2 diabetes mellitus with other diabetic neurological complication Diabetes Hearing loss Surgical History Hx of bilateral cataract extraction History of esophagogastroduodenoscopy (EGD) H/O colonoscopy History of cholecystectomy History of umbilical hernia repair History of foot surgery History of carpal tunnel release History of surgery on arm History of endometrial ablation History of tubal ligation Family History Mother Breast cancer Paternal Grandmother Breast cancer Brother Colon cancer Family/Other FH: mental illness Mental health disorder Father CAD (coronary artery disease) Social History Household Members: Children Housing: Apartment Are you a primary youth care worker to a significant other at home: No Do you presently have visiting nurse or other home services: Yes (LENGTH CONTROL TESTER) Alcohol intake: never Patient Tobacco Use Status: Never used Tobacco e-Cigarette/Vaping Use: Never Used Second Hand Smoke Exposure: No service: No Current occupational status: disabled Current occupation: Right hand dominate Cognitive needs: No Hearing needs: No Vision needs: Yes Female Reproductive History Menstrual Age of Menarche: 11 Review of Systems Const Denies chills and Denies fever(s) Card Denies chest pain, Denies dyspnea and Denies dyspnea on exertion Resp Denies cough, Denies dyspnea and Denies dyspnea on exertion GI Denies hematochezia and Denies change in bowel habits Denies hematuria Musc Denies back pain and Denies limited range of motion Neuro Denies focal weakness and Denies convulsions Psych Denies depression and Denies mood swings Physical Exam Vital Signs: BMI result Body Mass Index 30.4 Const Other: Appears overweight General: comfortable and no acute distress Orientation/consciousness: patient oriented x3 Neck Neck: Yes no lymphadenopathy Resp Auscultation: clear to auscultation bilaterally Cardio Rhythm: regular rhythm GI Other: Reducible hernia, obvious with Valsalva, to the right of the umbilicus, probably about 2 cm in size Palpation (GI): Soft to palpation, nontender and no guarding Neuro General: patient oriented x3 Assessment & Plan Assessment & Plan (1) Umbilical hernia: Code(s): K42.9 - Umbilical hernia without obstruction or gangrene Category: Medical Qualifiers: Obstruction and gangrene presence: without obstruction or gangrene Qualified Code(s): K42.9 - Umbilical hernia without obstruction or gangrene Plan: I have reviewed her CAT scan and this does show a fat containing umbilical hernia, to the right of the midline, a small fascial defect. She wants to proceed with the repair. I explained the technique of repair with possible mesh. I reviewed the risks including but not limited to bleeding, infections, bowel injury, recurrence, as well as the benefits and alternatives. She understands and says she wants to proceed Her last hemoglobin A1c month ago was 9.7. I explained to her that this needs to be repeated prior to her surgery as having an elevated A1c like this presents with perioperative risks including recurrence of the hernia. She says she understands. Coding Level of Care Code Est Pt Level 4 (89123) Diagnoses Umbilical hernia without obstruction and without gangrene K42.9 Obstruction and gangrene presence: without obstruction or gangrene
--- OUTSIDE RECORDS SUMMARY | 2025-04-07 15:07 | XMS_ITS | Clinical Summary ---
Author Organization [facility] Address [address] [place] [address] Care Team Providers Care Recruitment Internship Name Role Phone Unavailable Primary Care Provider [...] 2) 2014 Depression Screening 07/03/2024 COVID-19 Vaccine ( - 2023-2 5 season) 2025 Influenza Vaccine [...]
--- OUTSIDE RECORDS SUMMARY | 2025-04-07 15:07 | XMS_ITS | Clinical Summary ---
Author Organization [facility] Address [address] [place] [address] Care Team Providers Care Service Technician Copier Name Role Phone Unavailable Primary Care Provider [...] Drug Screen 07/03/2024 Depression Annual Screen 07/03/2024 [id number] ( season) 2025 11/04/2020, 10/07/2020 Imm-Influenza (#1) 2025 04/04/2019, 05/30/2018 Imm-DTaP/Tdap/Td (2 - Td or Tdap) 01/06/2030 01/07/2020, 07/08/2015 Cervical Ablation/Cold-Knife Conization Discontinued Cervical Cryotherapy Discontinued Colposcopy Discontinued Endometrial Biopsy Discontinued Excision/Leep Discontinued HPV Genotyping Discontinued Imm-Hepatitis B Aged Out No longer el igible based on patient's age to complete this topic Vaginal Pap Discontinued Vulvoscopy Discontinued Insurance Language[employer] PLAN Member Subscriber Plan / Payer (Ef fective 2020-Present) Name:Mellisa Durham Relation to Subscriber:Self Name:Mellisa Durham Payer ID:[id number] Group ID:[id number] Type:Medicaid Address: [facility] [address] [place] [address]
== END 2025-04-07 13:04 | disposition home or self-care (01) ==
LOC: HO.HGS 12:44
PROVIDERS: PCP Internal Medicine; Visit Provider Surgery
DX: K42.9 Umbilical hernia without obstruction or gangrene (principal)
CPT/HCPCS: 99214

== ENCOUNTER → 2025-04-07 12:43 | Outpatient (BNVA) | payer OTHER, SELFPAY | PROVIDERS: PCP Internal Medicine; Visit Provider Surgery | DX: K42.9 Umbilical hernia without obstruction or gangrene (principal) | CPT/HCPCS: 99212 ==

== ENCOUNTER 2025-04-29 09:24 | Outpatient (REF) | payer OTHER, SELFPAY ==
[2025-04-29 10:23] LABS: Appearance Urine Clear; Glucose Urine UA 100 mg/dL (Negative); PH 6.0 (5.0-9.0); Specific Gravity - Urine 1.025 (1.005-1.025); UMIC TRIGGER UA YES
--- OUTSIDE RECORDS SUMMARY | 2025-04-29 10:42 | XMS_ITS | Clinical Summary ---
Author Organization [facility] Address [address] [place] [address] Care Team Providers Care Hospitality Internship Name Role Phone Unavailable Primary Care [...] Screening 1965 Diabetes Screening 1965 HPV Screening (self-collect) 1965 HPV Screening 1965 Hepatitis C Screening [...] Drug Screen 07/03/2024 Depression Annual Screen 07/03/2024 [id number] (3 - season) 2025 11/04/2020, 10/07/2020 Imm-Influenza (#1) 2025 04/04/2019, 05/30/2018 Imm-DTaP/Tdap/Td (2 - Td or Tdap) 01/06/2030 01/07/2020, 07/08/2015 Cervical Ablation/Cold-Knife Conization Discontinued Cervical Cryotherapy Discontinued Colposcopy Discontinued Excision/Leep Discontinued HPV Genotyping Discontinued Imm-Hepatitis B Aged Out No longer el igible based on patient's age to complete this topic Vaginal Pap Discontinued Vulvoscopy Discontinued Insurance [employer] PLAN Member Subscriber Plan / Payer (Ef fective 2020-Present) Name:Mellisa Durham Relation to Subscriber:Self Name:Mellisa Durham Payer ID:[id number] Group ID:[id number] Type:Medicaid Address: [facility] [address] [place] [address]
--- OUTSIDE RECORDS SUMMARY | 2025-04-29 10:42 | XMS_ITS | Clinical Summary ---
Author Organization [facility] Address [address] [place] [address] Care Team Providers Care Marketing Consultant Name Role Phone Unavailable Primary Care Provider [...] complete this topic RSV Immunization Patients Un jney 20 months Aged Out No longer eligible b ased on patient's age to complete this topic Varicella Vaccines Aged Out No longer eligible based on patient's age to complete this topic
[2025-04-29 10:51] LABS: Anion Gap 11 (12-20); Blood Urea Nitrogen 20 mg/dL (9-16); Calcium 9.5 mg/dL (8.4-10.2); Carbon Dioxide 29 mmol/L (22-29); Chloride 106 mmol/L (96-108); Estimated Glomerular Filt Rate > 60; Potassium 4.1 mmol/L (3.3-5.1); Sodium 142 mmol/L (135-145)
[2025-04-29 11:12] LABS: Total Protein Urine Random 10 mg/dL (<12)
== END 2025-04-29 09:25 | disposition home or self-care (01) ==
LOC: HO.LAB 09:24
PROVIDERS: Internal Medicine Hypertension Specialist; PCP Internal Medicine; Visit Provider Surgery
DX: N13.30 Unspecified hydronephrosis (principal)
CPT/HCPCS: 36415; 80048; 81001; 82570; 84156

== ENCOUNTER 2025-05-07 09:39 | Outpatient (AMB) | payer OTHER, SELFPAY ==
--- NOTE | 2025-05-07 09:50 | A.OFFVIS_ITS ---
Vital Signs 05/07/25 10:01 Height 5 ft 2 in Weight 167 lb 8.821 oz BMI 30.6 BP 132/74 Blood Pressure Location Rt brachial Position Sitting Pulse 74 Pulse Source Pulse Oximeter Pulse Oximetry (%) 99 Oxygen Delivery Method Room Air Oxygen Flow Rate 99 Intake Visit Reasons: T2DM Intake Note: Patient presents today for a follow-up on Type 2 Diabetes Mellitus: Last Diabetic eye exam was on: 12/05/2024, [facility]. Last Podiatry exam was on: Patient does not see a Safety Relief Valve Technician Most recent HbA1c: 9.7%, 03/13/2025, 7.4%, 05/07/2025. Random Glucose: 182 mg/dL, 10:10 AM Variety Performer Required: Yes Variety Performer Language: Founder President And Ceo Services: Variety Performer Offered & Declined (Daughter) Accompanied by: Daughter Allergies Penicillins Allergy (Mild, Verified 05/07/25 09:51) RASH/DYSPNEA canagliflozin (From Invokana) Adverse Reaction (Severe, Verified 05/07/25 09:51) uti metformin Adverse Reaction (Intermediate, Verified 05/07/25 09:51) stomach upset mounjaro Adverse Reaction (Intermediate, Uncoded 05/07/25 09:51) Abdominal Pain trulicity Adverse Reaction (Intermediate, Uncoded 05/07/25 09:51) Abdominal Pain HPI Comments Details: 59 year old female with DM type 2 diagnosed around 2004 who presents for management of diabetes. Medical history: asthma (frequent prednisone), hernia, neuropathy She was last seen 03/2025 POC A1C today is 7.4% 03/13/2025 A1c 9.7% from 8.5% from 8% Current Medication: Pioglitazone 45 mg Lantus 38 (increased from 35 in mar) Aspart 28 units pre meal (increased from 25 in mar) Previous medications: Trulicity and Mounjaro due to abdominal pain. Was not in Invokana which was stopped secondary to UTI. Islet pump stopped due to difficulty pairing sensor and inability to operate secondary to language barrier. Jumblets Sandra 3+ report downloaded Time CGM active 97% Average glucose 199 mg/dL G ND 8.1% Within target range 36% High 44% Very high 19% Low 1% Very low 0% Interpretation: variable intermittent hypoglycemia Hypoglycemia: see above Hyperglycemia: + Ophthalmology evaluation: 12/25 -cataract surgery in 01/2024 No nephropathy: October 2024 normal urine microalbumin ratio, January 2025 eGFR>60 Neuropathy: no numbness, tingling, pain or cramping in the extremities saw podiatry Not on statin last LDL October Seen by Cardiology 2024 Stress echo negative for ischemia at achieved workload and HR 06/25 Normal LV ejection fraction of 60 65% with impaired relaxation filling pattern Getting evaluted with urology for hydropnephrosis , also following with Nephrology for this. 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: housecleaning has been walking [employer] Facilities Operator - CDE education: Saw in 2023 last Physical exam General: sitting comfortably in no acute distress HEENT: normocephalic/atraumatic Neck: supple, symmetrical, Cardiac: normal heart sounds Pulm: Clear to auscultation Abd: not distended, no tenderness Extremities: Mild edema noted bilaterally Neuro: AAO x3, Speech: normal, no facial droop, moving all 4 extremities Foot sensation : Done October 2024 intact sensation to monofilament, intact pulses PFSH Medical History Axonal neuropathy Supraumbilical hernia Ear discomfort Palpitations Overweight Type 2 diabetes mellitus with diabetic polyneuropathy B12 deficiency DM2 (diabetes mellitus, type 2) Tubular adenoma Moderate recurrent major depression Dyslipidemia Umbilical hernia Edema Arthritis Ear pain custodial (current) 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 of insulin Pernicious anemia Insomnia Depression with anxiety Moderate asthma Essential hypertension Polyarthralgia GERD (gastroesophageal reflux disease) Type 2 diabetes mellitus with other diabetic neurological complication Diabetes Hearing loss Surgical History (Updated 05/07/25 @ 10:28 by NACHO Bruno) History of eyelid surgery Hx of bilateral cataract extraction History of esophagogastroduodenoscopy (EGD) H/O colonoscopy History of cholecystectomy History of umbilical hernia repair History of foot surgery History of carpal tunnel release History of surgery on arm History of endometrial ablation History of tubal ligation Family History Mother Breast cancer Paternal Grandmother Breast cancer Brother Colon cancer Family/Other FH: mental illness Mental health disorder Father CAD (coronary artery disease) Social History Household Members: Children Housing: Apartment Are you a primary healthcare corporate account director to a significant other at home: No Do you presently have visiting nurse or other home services: Yes ([facility]) Alcohol intake: never Patient Tobacco Use Status: Never used Tobacco e-Cigarette/Vaping Use: Never Used Second Hand Smoke Exposure: No service: No Current occupational status: disabled Current occupation: Right hand dominate Cognitive needs: No Hearing needs: No Vision needs: Yes Female Reproductive History Menstrual Age of Menarche: 11 Physical Exam Vital Signs: Last Vital Signs Pulse 74 05/07/25 10:01 BP 132/74 05/07/25 10:01 Pulse Ox 99 05/07/25 10:01 Oxygen Delivery Method Room Air 05/07/25 10:01 Oxygen Flow Rate 99 05/07/25 10:01 BMI result Body Mass Index 30.6 Results AMB Hemoglobin A1c AMB Hemoglobin A1c 7.4 % Last Edit by NACHO Bruno on 05/07/25 10:20 HbA1c rechecked as part of preoperative evaluation Results Reviewed Results Reviewed: Laboratory Last Values Glucose (Clinic) 182 mg/dL (60-115) H 05/07/25 10:08 Assessment & Plan Assessment & Plan (1) Type 2 diabetes mellitus with diabetic polyneuropathy: Code(s): E11.42 - Type 2 diabetes mellitus with diabetic polyneuropathy Category: Medical Qualifiers: Diabetes mellitus jail insulin use: with terminal gauger use Qualified Code(s): E11.42 - Type 2 diabetes mellitus with diabetic polyneuropathy; Z79.4 - custodial (current) use of insulin (2) custodial (current) use of insulin: Code(s): Z79.4 - custodial (current) use of insulin Category: Medical Plan Uncontrolled diabetes with hypoglycemia Much improved A1C today at 7.4%. She still has a significant percentage of high readings and has too many lows as well Metformin was used remotely and unsure what dose. We talked about the possible benefit of trying this again so we could decrease her insulin improve A1C and put her at less risk of hypoglycemia. She is willing to try this approach Decrease Lantus to 34 units daily. Decrease meal time insuiln to 22 units Continue actos. Start metformin 1000mg XR daily Treat hypoglycemia by rules of 15 Return in one month or sooner as needed Orders: Orders AMB Hemoglobin A1c Today E11.42 - Type 2 diabetes mellitus with diabetic polyneuropathy, Z79.4 - termite control representative (current) use of insulin Medications: New metformin ER (Glucophage XR) 1,000 mg (2 x 500 mg) PO DAILY 180 tabs 3RF Changed From Lantus Solostar U-100 Insulin (insulin glargine) 38 units (0.38 mL) subcut DAILY 90 days 34.2 mL 3RF NS E11.65 - Type 2 diabetes mellitus with hyperglycemia To Lantus Solostar U-100 Insulin (insulin glargine) 34 units (0.34 mL) subcut DAILY 33 mL 3RF 90 days NS E11.65 - Type 2 diabetes mellitus with hyperglycemia From insulin aspart U-100 28 units (0.28 mL) subcut TID 90 days 75.6 mL 4RF To insulin aspart U-100 22 units (0.22 mL) subcut TID 60 mL 4RF 90 days Coding Level of Care Code Est Pt Level 4 (22675) Diagnoses Type 2 diabetes mellitus with diabetic polyneuropathy, with long-term current use of insulin E11.42; Z79.4 Diabetes mellitus terminal gauger insulin use: with jail use termite control representative (current) use of insulin Z79.4
[2025-05-07 10:01] VITALS: BP 132/74; PULSE 74; O2SAT 99; BMI 30.6
[2025-05-07 10:12] LABS: Glucose, Whole Blood 182 mg/dL (60-115)
--- OUTSIDE RECORDS SUMMARY | 2025-05-07 10:50 | XMS_ITS | Data Portability ---
Author Organization [place] - [facility], Allergy Address [address] [facility] [address] [place] [address] Care Team Providers Care Neighborhood Aide Name Role Phone LUIS M GILLIAM Primary Care Provider Assessment Encounter Date Assessment Date Assessment LastModified by Organization Details LastModified Time 05/28/2024 05/28/2024 58 year old female with SNHL and TMJ presents for evaluation of ear blockage bilaterally. Otologic exam demonstrates TMs are intact with well-aerated middle ear spaces. EACs without obstruction. Tympanometry is type A bilaterally. Her hearing aids from [facility] were sent for adjustment. Recommend she trial the adjusted hearing aids. She will return for audiometric testing if abnormal auditory perception persists. Today we spent some time talking about the fact that cerumen is a natural antibiotic, antifungal, skiver welt end, and moisturizer of the delicate external auditory [...] Sensorine ural hearing loss of bilateral ears [id number] Active 2018 Sensorine ural hearing loss, bilateral ; Note: Date Diagnosed : 03/28/2019 3:34 PM (H90.3) Not Available [facility] 4 02:33:25 Abrasion of skin of left ear [id number] 684183 Active 2018 Abrasion of left ear, initial encounter ; Note: Date Diagnosed : 03/28/2019 2:58 PM (S00.412A ) Not Available [facility] 4 02:33:25 Foreign body in left ear [id number] 302737 Active 2018 Foreign body in left ear, initial encounter ; Note: Date Diagnosed : 03/28/2019 2:58 PM (T16.2XXA ) Not Available [facility] 4 02:33:35 Pain of right temporoma ndibular joint 94961956568 719660 Active 2019 Arthralgi a of right temporoma ndibular joint; Note: Date Diagnosed : 0 3:09 PM (M26.621) Not Available [facility] 4 02:33:24 Bilateral temporoma ndibular joint pain 85748775172 412485 Active 2021 Arthralgi a of bilateral temporoma ndibular joint; Note: Date Diagnosed : 08/26/2021 4:41 PM (M26.623) Not Available [facility] 4 02:33:30 Abnormal auditory perceptio n 42151163 Active 2023 Leonie wharton [place] - [facility] 4 10:43:01 Problem Notes None recorded. Procedures Surgical History Date Name Laterality Status Provider Name and Address Organization Details Recorded Time 05/28/20 24 Tympanometry - 52637 completed Leonie Peña [place] - [facility] 05/28/2024 10:42:54 Imaging Results None recorded. Procedure Notes None recorded. Medical Equipment None Reported. Allergies Allergen ID Allergen Name Allergen Category Reaction Reaction Severity Criticality Documentation Date Start Date Code Code System Note Provider Name and Address Organization Details Recorded Time 81493 penicilli n V potassium medicatio n other Not available Not available 11/14/2023 5 RxNorm React ion: unkno wn, unspe cifie d;; Not Available [facility] 01:04:04 Medications Name Sig Start Date Stop Date Status Note LastModified by Organization Details LastModified Time cyclobenz aprine 10 mg tablet 2018 active Medicati on ID: [id number] D uration Value: 20 Brand Name: tish [...] mg tablet 05/28 completed Medicati on ID: [id number] D uration Value: 30 Brand Name: atorvast [...] mg tablet 05/28 completed Medicati on ID: [id number] B rand Name: ciproflo xacin HCl Send Method: E-Prescr ibed Sub s Allowed: subs OK [facility] : ciproflo xacin HCl Not [...] ear drops 05/28 completed Medicati on ID: [id number] B rand Name: ofloxaci n Send Method: [...] mg tablet 2018 active Medicati on ID: [id number] D uration Value: 30 Brand Name: metoclop ramide HCl Send Method: E-Prescr ibed Sub s Allowed: subs OK Speci al Instruct ion: TOME DIANA TABLETA TODOS LOS D? Med [facility] me: metoclop ramide HCl Not Available Not [...] injection solution 05/28 completed Medicati on ID: [id number] B rand Name: cyanocob alamin (vitamin B-12) Se nd Method: E-Prescr ibed Sub s Allowed: subs OK Medic ationGen ericName : cyanocob alamin (vitamin B-12) Not Available Not Available Not Available esomepraz ole magnesium 40 mg capsule,d elayed release active Not Available Not Available Not Available omeprazol e 20 mg capsule,d elayed release 2018 active Medicati on ID: [id number] D uration Value: 30 Brand Name: omeprazo [...] completed Not Available Not Available Not Available [place] Saline 0.65 % nasal spray aerosol 05/28 completed Medicati on ID: [id number] B rand Name: [place] Saline S end Method: E-Prescr ibed Sub s Allowed: subs OK Medic ationGen ericName : [place] Saline Not Available Not Available Not Available [...] pen injector 2018 active Medicati on ID: [id number] D uration Value: 28 Brand Name: Skyler [...] ICD10 Code Diagnosis IMO Codes Diagnosis Note [id number] GERARDO METZ PA-C [facility] of [address] [address] 05/28/2024 10:13:26 05/28/2024 11:00:06 Abnormal auditory perception 59169687 H93.299 Tympanomet ry: Right Ear:Type A Left Ear:Type A Bilateral temporomandibular joint pain [id number] 2610750 M26.623 Sensorineu ral hearing loss of bilateral ears 464915733 H90.3 Health Concerns Section Related Observation LastModified by Organization Detai ls LastModified Time None Recorded Concern Status LastModified by Organization Details LastModified Time None Recorded Advance Directives Directive None Recorded Payers Insurance Date Sequence Insurance Name Policy Number Policy Gamino Covered Member ID Gamino Member ID Guarantor Name 05/28/2024 1 [facility] - HEALTH NET PLAN (MEDICAID HMO) JAIDEN Durham [id number] Mellisa Durham Notes Date Note Type Note [...] ear infections. She has hearing aids from [facility] that she recently sent for adjustments. She has not worn them in 2 years. Occasional buzzing sounds bilaterally. MERRILL IRIZARRY MD [address] [place] [address], [place], [address], [facility] - [facility] 05/28/2024 17:20:37 OBGyn Episode No OBEpisode recorded.
--- OUTSIDE RECORDS SUMMARY | 2025-05-07 10:50 | XMS_ITS | Clinical Summary ---
Author Organization [facility] Address [address] [place] [address] Care Team Providers Care Freelance Recruiter Name Role Phone Unavailable Primary Care Provider [...] Drug Screen 07/03/2024 Depression Annual Screen 07/03/2024 Qca-[id number]-18 (3 - season) 2025 11/04/2020, 10/07/2020 Imm-Influenza (#1) 2025 04/04/2019, 05/30/2018 Imm-DTaP/Tdap/Td (2 - Td or Tdap) 01/06/2030 01/07/2020, 07/08/2015 Cervical Ablation/Cold-Knife Conization Discontinued Cervical Cryotherapy Discontinued Colposcopy Discontinued Excision/Leep Discontinued HPV Genotyping Discontinued Imm-Hepatitis B Aged Out No longer el igible based on patient's age to complete this topic Vaginal Pap Discontinued Vulvoscopy Discontinued Insurance [employer] PLAN Member Subscriber Plan / Payer (Ef fective 2020-Present) Name:Mellisa Durham Relation to Subscriber:Self Name:Mellisa Durham Payer ID:[id number] Group ID:[id number] Type:Medicaid Address: [facility] [address] [place] [address]
--- OUTSIDE RECORDS SUMMARY | 2025-05-07 10:50 | XMS_ITS | Clinical Summary ---
[facility] Organization [facility] Address [address] [place] [address] Care Team Providers Care Legal Biller Name Role Phone Unavailable Primary Care Provider [...]
== END 2025-05-07 10:27 | disposition home or self-care (01) ==
LOC: HO.ENCR 09:40
PROVIDERS: PCP Internal Medicine; Visit Provider Internal Medicine
DX: E11.42 Type 2 diabetes mellitus with diabetic polyneuropathy (principal); Z79.4 Long term (current) use of insulin

== ENCOUNTER → 2025-05-07 09:39 | Outpatient (BNVA) | payer OTHER, SELFPAY | PROVIDERS: PCP Internal Medicine; Visit Provider Internal Medicine | DX: E11.42 Type 2 diabetes mellitus with diabetic polyneuropathy (principal); Z79.4 Long term (current) use of insulin | CPT/HCPCS: 82947; 83036; 99212 ==

== ENCOUNTER 2025-05-20 09:07 | Day surgery (SDC) | payer OTHER, SELFPAY ==
--- OUTSIDE RECORDS SUMMARY | 2025-05-08 11:55 | XMS_ITS | Clinical Summary ---
Author Organization [facility] Address [address] [place] [address] Care Team Providers Care Railroad Shop Inspector Name Role Phone Unavailable Primary Care [...] Drug Screen 07/03/2024 Depression Annual Screen 07/03/2024 Exw-[id number] (3 - season) 2025 11/04/2020, 10/07/2020 Imm-Influenza (#1) 2025 04/04/2019, 05/30/2018 Imm-DTaP/Tdap/Td (2 - Td or Tdap) 01/06/2030 01/07/2020, 07/08/2015 Cervical Ablation/Cold-Knife Conization Discontinued Cervical Cryotherapy Discontinued Colposcopy Discontinued Excision/Leep Discontinued HPV Genotyping Discontinued Imm-Hepatitis B Aged Out No longer el igible based on patient's age to complete this topic Vaginal Pap Discontinued Vulvoscopy Discontinued Insurance [employer] PLAN Member Subscriber Plan / Payer (Ef fective 2020-Present) Name:Mellisa Durham Relation to Subscriber:Self Name:Mellisa Durham Payer ID:[id number] Group ID:[id number] Type:Medicaid Address: [facility] [address] [place] [address]
--- OUTSIDE RECORDS SUMMARY | 2025-05-08 11:55 | XMS_ITS | Data Portability ---
Author Organization [place] - [facility], Allergy Address [address] [facility] [address] [place] [address] Care Team Providers Care Presser First Name Role Phone LUIS M GILLIAM Primary [...] Her hearing aids from [facility] were sent for adjustment. Recommend she trial the adjusted hearing aids. She will return for audiometric testing if abnormal auditory perception persists. Today we spent some time talking about the fact that cerumen is a natural antibiotic, antifungal, rn telephone triage, and moisturizer of the delicate external auditory [...] Sensorine ural hearing loss of bilateral ears 563381956 Active 2018 Sensorine ural hearing loss, bilateral ; Note: Date Diagnosed : 03/28/2019 3:34 PM (H90.3) Not Available [facility] 4 02:33:25 Abrasion of skin of left ear [id number] 789364 Active 2018 Abrasion of left ear, initial encounter ; Note: Date Diagnosed : 03/28/2019 2:58 PM (S00.412A ) Not Available [facility] 4 02:33:25 Foreign body in left ear 22692905875 328740 Active 2018 Foreign body in left ear, initial encounter ; Note: Date Diagnosed : 03/28/2019 2:58 PM (T16.2XXA ) Not Available [facility] 4 02:33:35 Pain of right temporoma ndibular joint 96471290542 329247 Active 2019 Arthralgi a of right temporoma ndibular joint; Note: Date Diagnosed : 0 3:09 PM (M26.621) Not Available [facility] 4 02:33:24 Bilateral temporoma ndibular joint pain 41600512748 468211 Active 2021 Arthralgi a of bilateral temporoma ndibular joint; Note: Date Diagnosed : 08/26/2021 4:41 PM (M26.623) Not Available [facility] 4 02:33:30 Abnormal auditory perceptio n 61937497 Active 2023 Leonie wharton [place] - [facility] 4 10:43:01 Problem Notes None recorded. Procedures Surgical History Date Name Laterality Status Provider Name and Address Organization Details Recorded Time 05/28/20 24 Tympanometry - 99403 completed Leonie Peña [place] - [facility] 05/28/2024 10:42:54 Imaging Results None recorded. Procedure Notes None recorded. Medical Equipment None Reported. Allergies Allergen ID Allergen Name Allergen Category Reaction Reaction Severity Criticality Documentation Date Start Date Code Code System Note Provider Name and Address Organization Details Recorded Time 83863 penicilli n V potassium medicatio n other Not available Not available 11/14/2023 5 RxNorm React ion: unkno wn, unspe cifie d;; Not Available [facility] 01:04:04 Medications Name Sig Start Date Stop Date Status Note LastModified by Organization Details LastModified Time cyclobenz aprine 10 mg tablet 2018 active Medicati on ID: 510503 D uration Value: 20 Brand Name: tish [...] mg tablet 05/28 completed Medicati on ID: [id number] D uration Value: 30 Brand Name: atorvast [...] mg tablet 05/28 completed Medicati on ID: [id number] B rand Name: ciproflo xacin HCl Send Method: E-Prescr ibed Sub s Allowed: subs OK [facility] : ciproflo xacin HCl Not [...] ear drops 05/28 completed Medicati on ID: [id number] B rand Name: ofloxaci n Send Method: [...] mg tablet 2018 active Medicati on ID: [id number] D uration Value: 30 Brand Name: metoclop ramide HCl Send Method: E-Prescr ibed Sub s Allowed: subs OK Speci al Instruct ion: TOME DIANA TABLETA TODOS LOS D? Med [facility] me: metoclop ramide HCl Not Available [...] injection solution 05/28 completed Medicati on ID: [id number] B rand Name: cyanocob alamin (vitamin B-12) Se nd Method: E-Prescr ibed Sub s Allowed: subs OK Medic ationGen ericName : cyanocob alamin (vitamin B-12) Not Available Not Available Not Available esomepraz ole magnesium 40 mg capsule,d elayed release active Not Available Not Available Not Available omeprazol e 20 mg capsule,d elayed release 2018 active Medicati on ID: [id number] D uration Value: 30 Brand Name: omeprazo [...] completed Not Available Not Available Not Available [place] Saline 0.65 % nasal spray aerosol 05/28 completed Medicati on ID: [id number] B rand Name: [place] Saline S end Method: E-Prescr ibed Sub s Allowed: subs OK Medic ationGen ericName : [place] Saline Not Available Not Available Not Available [...] pen injector 2018 active Medicati on ID: [id number] D uration Value: 28 Brand Name: Skyler [...] ICD10 Code Diagnosis IMO Codes Diagnosis Note [id number] GERARDO METZ PA-C [facility] of [address] [address] 05/28/2024 10:13:26 05/28/2024 11:00:06 Abnormal auditory perception [id number] H93.299 Tympanomet ry: Right Ear:Type A Left Ear:Type A Bilateral temporomandibular joint pain [id number] 8159753 M26.623 Sensorineu ral hearing loss of bilateral ears 890844233 H90.3 Health Concerns Section Related Observation LastModified by Organization Detai ls LastModified Time None Recorded Concern Status LastModified by Organization Details LastModified Time None Recorded Advance Directives Directive None Recorded Payers Insurance Date Sequence Insurance Name Policy Number Policy Gamino Covered Member ID Gamino Member ID Guarantor Name 05/28/2024 1 [facility] - HEALTH NET PLAN (MEDICAID HMO) JAIDEN Durham [id number] Mellisa Durham Notes Date Note Type Note [...] has hearing aids from [facility] that she recently sent for adjustments. She has not worn them in 2 years. Occasional buzzing sounds bilaterally. MERRILL IRIZARRY MD [address] [place] [address], [place], [address], [facility] - [facility] 05/28/2024 17:20:37 OBGyn Episode No OBEpisode recorded.
--- OUTSIDE RECORDS SUMMARY | 2025-05-08 11:56 | XMS_ITS | Clinical Summary ---
Author Organization [facility] Address [address] [place] [address] Care Team Providers Care Electrician Refinery Name Role Phone Unavailable Primary Care Provider [...]
[2025-05-16 09:52] VITALS: BP 127/61; PULSE 74; RESP 20; O2SAT 97; BMI 30.7
--- NOTE | 2025-05-16 10:08 | HO.ANESPROP2 ---
Documented by User: Paula French NP 05/22/25 10:59 HPI - Anesthesia Eval Consult details Narrative: 59yo F for Repair Recurrent Hernia Umbilical Reducible with mesh, 05/20/25 s/p Open reducible recurrent umbilical hernia with mesh, 09/11/24 with GA-LMA 4 Prior to 08/2024 surgery: Cardiac optimized by [facility] Cardiology. W/U for CP neg with EKG, ECHO, Stress ECHO No recent illness No CP/SOB with regular activity Asthma: Rare albuterol use. Follows [facility] pulmo. Med compliance reinforced at 03/2025 office visit DM: A1C ~7% 05/2025 GERD: ppi control PMFSH Active Problems Active Problems: All Active Problems Nephrolithiasis (Acute) Leg edema (Acute) Neuropathy (Acute) Physical exam (Acute) Lumbar pain (Acute) Bilateral leg paresthesia (Acute) Status post umbilical hernia repair, follow-up exam (Acute) Encounter for preoperative pulmonary examination (Acute) Hypovitaminosis D (Acute) Bronchitis (Acute) Hydronephrosis (Acute) Preoperative cardiovascular examination (Acute) SOB (shortness of breath) (Acute) Recurrent umbilical hernia (Acute) Cough (Acute) Environmental allergies (Acute) Chest pain (Acute) Foreign body in right ear (Acute) Pleuritic pain (Acute) COVID-19 (Acute) Postmenopausal bleeding (Acute) Loss of balance (Acute) Gingivitis (Acute) Pre-op evaluation (Acute) Vaginal irritation (Acute) Proteinuria (Acute) Stress incontinence (Acute) Atelectasis, right (Acute) Environmental and seasonal allergies (Acute) Uterine myoma (Acute) Atelectasis, bilateral (Acute) Right shoulder pain (Acute) Urine incontinence (Acute) Urinary frequency (Acute) Post-COVID syndrome (Acute) Pharyngitis (Acute) ETD (eustachian tube dysfunction) (Acute) Physical exam (Acute) Asthma exacerbation (Acute) Right foot injury (Acute) Hyperlipidemia LDL goal <70 (Acute) Neck pain (Acute) Hearing loss (Acute) Right hip pain (Acute) Microscopic hematuria (Acute) Urinary tract infection (Acute) Foamy urine (Acute) Rhinitis (Acute) Family history of breast cancer in mother (Acute) Pelvic pain (Acute) Breast lump (Acute) Well woman exam (Acute) Fatigue (Acute) Ear discomfort (Acute) COVID-19 (Acute) Tinea pedis (Acute) Tubular adenoma (Acute) Left serous otitis media (Acute) Right otitis media (Acute) Otalgia, right ear (Acute) Bruised toe (Acute) Atrophic vaginitis (Acute) Candidal vulvovaginitis (Acute) Breast calcification, left (Acute) Umbilical hernia (Acute) Ear pain (Acute) Asthma (Acute) Otitis media (Acute) Hearing loss (Acute) Otitis externa (Acute) Axonal neuropathy (Acute) Supraumbilical hernia (Acute) Palpitations (Acute) Overweight (Acute) Type 2 diabetes mellitus with diabetic polyneuropathy (Acute) B12 deficiency (Acute) Moderate recurrent major depression (Acute) Dyslipidemia (Acute) Edema (Acute) 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 (Acute) 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 (Acute) Pernicious anemia (Acute) Insomnia (Acute) Moderate asthma (Acute) Essential hypertension (Acute) Polyarthralgia (Acute) GERD (gastroesophageal reflux disease) (Acute) Hearing loss (Acute) Past Medical History Medical History (Updated 05/16/25 @ 09:52 by Margaret Hall RN) Axonal neuropathy Supraumbilical hernia Palpitations Overweight B12 deficiency DM2 (diabetes mellitus, type 2) Moderate recurrent major depression Dyslipidemia Edema 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 Pernicious anemia Insomnia Depression with anxiety Moderate asthma Essential hypertension Polyarthralgia GERD (gastroesophageal reflux disease) Type 2 diabetes mellitus with other diabetic neurological complication Hearing loss Family History Family History Mother Breast cancer Paternal Grandmother Breast cancer Brother Colon cancer Family/Other FH: mental illness Mental health disorder Father CAD (coronary artery disease) Family history of problems with anesthesia: No Surgical History Surgical History (Updated 05/15/25 @ 12:50 by Margaret Hall RN) History of eyelid surgery Hx of bilateral cataract extraction History of esophagogastroduodenoscopy (EGD) H/O colonoscopy History of cholecystectomy History of umbilical hernia repair History of foot surgery History of carpal tunnel release History of surgery on arm History of endometrial ablation History of tubal ligation History of Problems with Anesthesia: No Social History Social History Household Members: Children Housing: Apartment Are you a primary home care rn to a significant other at home: No Do you presently have visiting nurse or other home services: Yes (VNA) Alcohol intake: never Patient Tobacco Use Status: Never used Tobacco e-Cigarette/Vaping Use: Never Used Second Hand Smoke Exposure: No Use of substances other than those prescribed or required for medical reasons: No Have you been hit, kicked, punched, or otherwise hurt by someone within the past year? If so, by whom?: No Spiritual Healthcare Practices: no Baptism Healthcare Practices: no Cultural Healthcare Practices: no Are you DNR?: No Advance Directives: No (daughter is primary contact) Advance Directives on File: No FDLMP: n/a service: No Current occupational status: disabled Current occupation: Right hand dominate Cognitive needs: No Hearing needs: No Vision needs: Yes Meds Allergies Allergy/AdvReac Type Severity Reaction Status Date / Time dulaglutide (From Trulicity) Allergy Intermediate Abdominal Verified 05/15/25 12:42 Pain tirzepatide (From Mounjaro) Allergy Intermediate Abdominal Verified 05/15/25 12:42 Pain Penicillins Allergy Mild RASH/DYSPNE Verified 05/07/25 09:51 A canagliflozin (From Invokana) AdvReac Severe UTI Verified 05/15/25 12:42 Home Medications ?Medication ?Instructions ?Recorded ?Confirmed ?Last Taken ?Type zolpidem 5 mg tablet 5 mg PO BEDTIME 04/16/20 05/16/25 Unknown History lorazepam 0.5 mg tablet 0.5 mg PO BID-TID PRN Anxiety 08/26/24 05/16/25 Unknown History atorvastatin 40 mg tablet 40 mg PO DAILY 08/28/24 05/16/25 Unknown History fluticasone propionate 50 1 spray intranasal DAILY PRN 08/28/24 05/16/25 Unknown History mcg/actuation nasal Allergy Symptoms spray,suspension (Flonase Allergy Relief) sertraline 100 mg tablet 100 mg PO DAILY 02/06/25 05/16/25 Unknown History insulin aspart U-100 100 unit/mL 28 unit subcut TIDAC 05/16/25 05/16/25 Unknown History (3 mL) subcutaneous pen insulin glargine 100 unit/mL (3 40 unit subcut BEDTIME 05/16/25 05/16/25 Unknown History mL) subcutaneous pen (Lantus Solostar U-100 Insulin) metformin 500 mg tablet,extended 1,000 mg PO DAILY 05/16/25 05/16/25 Unknown History release 24 hr montelukast 10 mg tablet 10 mg PO QAM 05/16/25 05/16/25 Unknown History Exam Height,Weight and Vital Signs: Height 5 ft 2 in Weight 76.1 kg Last Vital Signs Pulse 74 05/16/25 09:52 Resp 20 05/16/25 09:52 BP 127/61 05/16/25 09:52 Pulse Ox 97 05/16/25 09:52 O2 Del Method Room Air 05/16/25 09:52 Pertinent Lab Results Pertinent Lab Results: Laboratory Tests 03/28/25 04/29/25 05/07/25 09:54 09:33 10:18 WBC 6.3 Hgb 13.6 Hct 41.1 Plt Count 115 L Sodium 142 Potassium 4.1 Chloride 106 Carbon Dioxide 29 Anion Gap 11 L BUN 20 H Creatinine 0.66 Estimated GFR > 60 Hgb A1c (Clinic) 7.4 H Narrative Narrative: EKG 04/2024 Vent. Rate : 081 BPM Atrial Rate : 081 BPM P-R Int : 150 ms QRS Dur : 076 ms QT Int : 398 ms P-R-T Axes : 067 065 047 degrees QTc Int : 462 ms Normal sinus rhythm Normal ECG When compared with ECG of 03-MAR-2024 07:48, No significant change was found ECHO 2023 Conclusions: - 1. Normal LV ejection fraction of 60 65% with impaired relaxation filling pattern 2. Normal cardiac valvular Dopplers 3. Normal RV systolic pressure 4. No gross pericardial effusion Stress ECHO 2023 Conclusion : Stress echo negative for ischemia at achieved workload and HR Airway Mallampati Class: I TM Dist: >3cm Neck ROM: Full Partial: Upper Loose/Missing/Broken Teeth: Yes (Molars missing. Partial top dentures. Denies broken or loose teeth) Heart: RRR Lungs: CTAB Assessment and Plan Assessment Anesthesia Assessment: Anesthesia Plan Discussed and PAT Visit Final Anesthetic Review Family History of Problems with Anesthesia: No History of Problems with Anesthesia: No Documented by User: Russell eWlls MD 05/27/25 15:35 [facility] Past Medical History Medical History (Updated 05/16/25 @ 09:52 by Margaret Hall RN) Axonal neuropathy Supraumbilical hernia Palpitations Overweight B12 deficiency DM2 (diabetes mellitus, type 2) Moderate recurrent major depression Dyslipidemia Edema Arthritis halfway (current) use of insulin Pernicious anemia Insomnia Depression with anxiety Moderate asthma Essential hypertension Polyarthralgia GERD (gastroesophageal reflux disease) Type 2 diabetes mellitus with other diabetic neurological complication Hearing loss Family History Family History Mother Breast cancer Paternal Grandmother Breast cancer Brother Colon cancer Family/Other FH: mental illness Mental health disorder Father CAD (coronary artery disease) Surgical History Surgical History (Updated 05/15/25 @ 12:50 by Margaret Hall RN) History of eyelid surgery Hx of bilateral cataract extraction History of esophagogastroduodenoscopy (EGD) H/O colonoscopy History of cholecystectomy History of umbilical hernia repair History of foot surgery History of carpal tunnel release History of surgery on arm History of endometrial ablation History of tubal ligation Social History Social History Household Members: Children Housing: Apartment Are you a primary home care rn to a significant other at home: No Do you presently have visiting nurse or other home services: Yes (VNA) Alcohol intake: never Patient Tobacco Use Status: Never used Tobacco e-Cigarette/Vaping Use: Never Used Second Hand Smoke Exposure: No Use of substances other than those prescribed or required for medical reasons: No Have you been hit, kicked, punched, or otherwise hurt by someone within the past year? If so, by whom?: No Spiritual Healthcare Practices: no Baptism Healthcare Practices: no Cultural Healthcare Practices: no Are you DNR?: No Advance Directives: No (daughter is primary contact) Advance Directives on File: No FDLMP: n/a service: No Current occupational status: disabled Current occupation: Right hand dominate Cognitive needs: No Hearing needs: No Vision needs: Yes Meds Allergies Allergy/AdvReac Type Severity Reaction Status Date / Time dulaglutide (From [facility]) Allergy Intermediate Abdominal Verified 05/15/25 12:42 Pain tirzepatide (From Mounjaro) Allergy Intermediate Abdominal Verified 05/15/25 12:42 Pain Penicillins Allergy Mild RASH/DYSPNE Verified 05/07/25 09:51 A canagliflozin (From Invokana) AdvReac Severe UTI Verified 05/15/25 12:42 Home Medications ?Medication ?Instructions ?Recorded ?Confirmed ?Last Taken ?Type zolpidem 5 mg tablet 5 mg PO BEDTIME 04/16/20 05/16/25 Unknown History lorazepam 0.5 mg tablet 0.5 mg PO BID-TID PRN Anxiety 08/26/24 05/16/25 Unknown History atorvastatin 40 mg tablet 40 mg PO DAILY 08/28/24 05/16/25 Unknown History fluticasone propionate 50 1 spray intranasal DAILY PRN 08/28/24 05/16/25 Unknown History mcg/actuation nasal Allergy Symptoms spray,suspension (Flonase Allergy Relief) sertraline 100 mg tablet 100 mg PO DAILY 02/06/25 05/16/25 Unknown History insulin aspart U-100 100 unit/mL 28 unit subcut TIDAC 05/16/25 05/16/25 Unknown History (3 mL) subcutaneous pen insulin glargine 100 unit/mL (3 40 unit subcut BEDTIME 05/16/25 05/16/25 Unknown History mL) subcutaneous pen (Lantus Solostar U-100 Insulin) metformin 500 mg tablet,extended 1,000 mg PO DAILY 05/16/25 05/16/25 Unknown History release 24 hr montelukast 10 mg tablet 10 mg PO QAM 05/16/25 05/16/25 Unknown History Assessment and Plan Final Anesthetic Review NPO: Yes ASA Class: II Final Preanesthetic Review: No Changes in Pt Med Stat, Meds/Allgs Chart Reviewed, Consent Obtained/Reviewed and Anes Risks/Benef Reviewed Patient Risk: Low Procedure Risk: Low Anesthetic Plan Anesthetic Plan: GA Disposition: Standard PACU
[2025-05-20] VITALS (11 sets, daily range): BP systolic 110–124; BP diastolic 56–69; PULSE 74–84; RESP 14–18; TEMP 36.1–36.5; O2SAT 93–97; BMI 30.4
[2025-05-20 09:37] LABS: Glucose, Whole Blood 215 mg/dL (60-115)
[2025-05-20] MEDS: Lactated Ringers 1,000 ML 100 ML IVCONT (09:52)
--- NOTE | 2025-05-20 11:06 | MHC.SHP ---
Pre-Procedural Eval Section A - 24 Hr Update-Section A only Date of Service: 05/20/25 Section B - Complete if H&P > 30 days Chief Complaint: Umbilical hernia without obstruction or gangrene Details of Present Illness: Has a an umbilical hernia, non reducible, for repair today Relevant Social History: None Present Medications: see Short Stay Collaborative assessment Medical History: Significant History (Neuropathy, chronic neck pain, polyarthralgia, GERD) Allergies: Allergies Allergy/AdvReac Type Severity Reaction Status Date / Time dulaglutide (From Trulicity) Allergy Intermediate Abdominal Verified 05/15/25 12:42 Pain tirzepatide (From Mounjaro) Allergy Intermediate Abdominal Verified 05/15/25 12:42 Pain Penicillins Allergy Mild RASH/DYSPNE Verified 05/07/25 09:51 A canagliflozin (From Invokana) AdvReac Severe UTI Verified 05/15/25 12:42 Review of Systems Sugical H&P ROS: Negative: Constitution, Respiratory and Gastrointestinal Exam Surgical H&P Exam: Normal: Heart and Normal: Lungs and Significant Findings: Abdomen (Umbilical hernia) Plan Diagnosis/Plan: Unchanged I have reviewed the history and physical and performed a pertinent physical examination on my patient. No changes have occurred unless specified. Time Spent With Patient Time: Total time managing care of this patient today ____ minutes.
--- NOTE | 2025-05-20 12:16 | W.PM.OPN ---
Operative Note Operative Note Date of Service: 05/20/25 Narrative: Preop diagnosis: Recurrent umbilical hernia Postop diagnosis: The same Procedure: Repair of recurrent umbilical hernia with Ventralex mesh Surgeon: Ronald Bundy MD environmental engineering assistant: KARINA Weaver The patient is a 59 year old female with pain and a reducible mass on the umbilicus. She did not have a repair of a umbilical hernia with Dr. Hernández earlier this year. Her CAT scan done last month showed this fascial defect to the right of the umbilicus with a fat containing hernia. In view of symptoms she wanted to proceed with repair again. She understood the technique of the planned procedure as well as the risks, benefits, and alternatives. She was brought to the operating room and placed supine under general anesthesia via laryngeal mask airway. The abdomen was prepped and draped in the usual sterile fashion. A surgical time-out was done. The patient received cefazolin 2 g IV preoperatively I infiltrated the planned line of incision with lidocaine 1%. I made a supraumbilical transverse curvilinear incision with a blade 15. This carried down with electrocautery through the full-thickness of the skin and subcutaneous fat. There was note of a lot of fibrotic changes in the area in view of her previous surgery. I therefore continued to gently dissect through the thick subcutaneous fat until was able to visualize fascia. By doing so, I was also able to identify the fascial defect. I was able to apply a Gui clamp on the fascial defect. I further define this doing careful sharp dissection with the Metzenbaum scissors. I the umbilicus gently off of the rest of the area. I was able to therefore completely define the fascial defect. The fascial defect was about 1.7 cm in diameter. Examination of the underside of the fascial defect showed no adherent bowel loops. I used a small-sized Ventralex mesh. I positioned this under the fascial defect and flattened this. I secured the Prolene straps of the mesh has a fascial defect on both sides with Prolene 2-0 sutures. I trimmed the Prolene straps flush on the fascial level Then closed the fascial defect with a [id number] Maxon 1 stitch. We irrigated. We reapposed the deep subcutaneous layer with Polysorb 3-0 simple interrupted sutures. Skin closure was achieved with Polysorb 4-0 subcuticular running sutures . The area was infiltrated with Marcaine 0.5% for postop analgesia. Dressings were applied and the procedure was completed. The patient tolerated the procedure well. There were no immediate complications. Initial and final counts of sponges and instruments were correct. Estimated blood loss was less than 25 cc. The patient was extubated without difficulty and transferred to the recovery room with stable vital signs.
[2025-05-20] MEDS: oxyCODONE HCl Immed Release 5 MG TABLET PO (13:14)
== END 2025-05-20 14:42 | disposition home or self-care (01) ==
PROVIDERS: PCP Internal Medicine; Visit Provider Surgery
PROC: (CPT 49613; principal; 2025-05-20 12:10)
DX: K42.9 Umbilical hernia without obstruction or gangrene (principal); E11.42 Type 2 diabetes mellitus with diabetic polyneuropathy; E11.49 Type 2 diabetes mellitus with other diabetic neurological complication; I10 Essential (primary) hypertension; E78.5 Hyperlipidemia, unspecified; R00.2 Palpitations; J45.909 Unspecified asthma, uncomplicated; R60.9 Edema, unspecified; F33.1 Major depressive disorder, recurrent, moderate; F41.9 Anxiety disorder, unspecified; E66.3 Overweight; Z68.30 Body mass index [BMI] 30.0-30.9, adult; Z79.4 Long term (current) use of insulin; Z88.0 Allergy status to penicillin; Z88.8 Allergy status to other drugs, medicaments and biological substances; Z90.49 Acquired absence of other specified parts of digestive tract; Z98.890 Other specified postprocedural states
CPT/HCPCS: 49613; 82947; C1781; J0131; J0690; J1100; J1171; J1790; J1885; J2003; J2250; J2405; J2704; J2795; J3010

== ENCOUNTER → 2025-05-20 09:07 | Outpatient (BNV) | payer OTHER, SELFPAY | PROVIDERS: PCP Internal Medicine; Visit Provider Surgery | DX: K42.9 Umbilical hernia without obstruction or gangrene (principal) | CPT/HCPCS: 49613 ==

== ENCOUNTER 2025-06-11 10:42 | Outpatient (AMB) | payer OTHER, SELFPAY ==
--- NOTE | 2025-06-11 10:58 | MHC.OFFVIS ---
Vital Signs 06/11/25 11:03 Height 5 ft 2 in Weight 164 lb BMI 30.0 BP 112/62 Blood Pressure Location Lt brachial Position Sitting Intake Visit Reasons: post hernia repair Intake Note: Patient is seen in office for post op assessment post umbilical hernia repair. Pt c/o: incision is healing well, is in pain due to excessive coughing surgery:05/20/25 Dimethylaniline Sulfator Operator Required: Yes Dimethylaniline Sulfator Operator Language: Machine Stone Polisher Apprentice Services: Dimethylaniline Sulfator Operator Present Dimethylaniline Sulfator Operator Name: Soheila GRIFFITH Information Interpreted: non-clinical & clinical Bench Worker Binding: Bench Worker Binding Present Accompanied by: Self / Same As Patient Allergies dulaglutide (From Trulicity) Allergy (Intermediate, Verified 06/11/25 11:03) Abdominal Pain tirzepatide (From Mounjaro) Allergy (Intermediate, Verified 06/11/25 11:03) Abdominal Pain Penicillins Allergy (Mild, Verified 06/11/25 11:03) RASH/DYSPNEA canagliflozin (From Invokana) Adverse Reaction (Severe, Verified 06/11/25 11:03) UTI HPI HPI post hernia repair: Details: She reports she is doing well overall. Pain from surgery he has minimal however she states she has developed a cough which when she coughs causes pain at the incision site. She has been using her hand to support the area because she does not want this to come back. She denies seeing any protrusion or hernia from the site. She thinks the cough is related to her asthma, reach out to her day trader but was unable to be seen so she plans to be seen at urgent care. Has been using her inhalers and nebulizer at home as needed. 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 Pernicious anemia Insomnia Depression with anxiety Moderate asthma Essential hypertension Polyarthralgia GERD (gastroesophageal reflux disease) Type 2 diabetes mellitus with other diabetic neurological complication Hearing loss Surgical History (Updated 06/11/25 @ 12:01 by Lawrence Ruiz PA-C) History of umbilical hernia repair (~05/20/25) History of eyelid surgery Hx of bilateral cataract extraction History of esophagogastroduodenoscopy (EGD) H/O colonoscopy History of cholecystectomy History of umbilical hernia repair History of foot surgery History of carpal tunnel release History of surgery on arm History of endometrial ablation History of tubal ligation Family History Mother Breast cancer Paternal Grandmother Breast cancer Brother Colon cancer Family/Other FH: mental illness Mental health disorder Father CAD (coronary artery disease) Social History Household Members: Children Housing: Apartment Are you a primary care team coordinator scheduler to a significant other at home: No Do you presently have visiting nurse or other home services: Yes (VNA) Alcohol intake: never Patient Tobacco Use Status: Never used Tobacco e-Cigarette/Vaping Use: Never Used Second Hand Smoke Exposure: No service: No Current occupational status: disabled Current occupation: Right hand dominate Cognitive needs: No Hearing needs: No Vision needs: Yes Female Reproductive History Menstrual Age of Menarche: 11 Physical Exam Vital Signs: Last Vital Signs BP 112/62 06/11/25 11:03 BMI result Body Mass Index 30.0 Const General: comfortable and no acute distress Orientation/consciousness: patient oriented x3 Resp Effort & Inspection: normal respiratory effort and able to speak in complete sentences GI Other: Umbilical hernia incision site appears well healed, no surrounding erythema, nontender. No fluid collection. No visible recurrent hernia. Inspection: No distended Palpation (GI): Soft to palpation and nontender Neuro General: patient oriented x3 Assessment & Plan Assessment & Plan (1) History of umbilical hernia repair: Onset Date: ~05/20/25 Comment: Repair of recurrent umbilical hernia with Ventralex mesh-Dr. Gregor HERRMANN FACS Code(s): Z98.890 - Other specified postprocedural states; Z87.19 - Personal history of other diseases of the digestive system Category: Surgical Plan 59-year-old female s/p repair of recurrent umbilical hernia with Ventralex mesh with Dr. Bundy on 05/20/2025 returning to the office for routine follow up. Overall she is doing well but has unfortunately developed a cough which he attributes to her asthma. She has unfortunately been unable to get in to see her day trader but plans to go to urgent care. She does not appear to have difficulty breathing today in the office and she has been using her inhaler and nebulizer at home as needed. This coughing that she has been experiencing has been causing her some abdominal pain during the active coughing. I recommended that she use her hand to add support to the hernia repair site for added support. She states she has been doing this already. Otherwise doing well, no pain at rest. Denies fevers or chills. Denies drainage from incision site. On exam abdomen is soft and benign. The incision site actually looks to be healing very well. There was no visible hernia at this time we will hold off on testing for recurrence until next visit. We will continue with activity restrictions no heavy lifting greater than 15-20 lb until her next visit. She will return in 3 weeks for routine follow up. If going well can likely be discharged. She can call to be seen sooner with any concerns or questions Coding Level of Care Code Est Pt Level 4 (22698) Diagnoses History of umbilical hernia repair Z98.890; Z87.19
[2025-06-11 11:03] VITALS: BP 112/62
== END 2025-06-11 11:11 | disposition home or self-care (01) ==
LOC: HO.HGS 10:43
DX: Z98.890 Other specified postprocedural states (principal); Z87.19 Personal history of other diseases of the digestive system
CPT/HCPCS: 99214

== ENCOUNTER → 2025-06-11 10:42 | Outpatient (BNVA) | payer OTHER, SELFPAY | DX: J06.9 Acute upper respiratory infection, unspecified (principal) | CPT/HCPCS: 99212 ==

== ENCOUNTER 2025-06-11 14:17 | Outpatient (AMB) | payer OTHER, SELFPAY ==
[2025-06-11 14:24] VITALS: BP 124/60; PULSE 83; TEMP 36.9; O2SAT 97; BMI 30.4
--- NOTE | 2025-06-11 14:24 | MHC.OFFWIV ---
Intake Vital Signs 06/11/25 14:24 Height 5 ft 2 in Weight 166 lb BMI 30.4 BP 124/60 Blood Pressure Location Rt brachial Position Sitting Pulse 83 Pulse Source Pulse Oximeter Temp 98.5 F Temp Source Oral Pulse Oximetry (%) 97 Oxygen Delivery Method Room Air Intake Visit Reasons: EP-cough, ears ache, sore throat Intake Note: Patient presents c/o cough, sore throat, bilateral ear pain x5 days. Patient Tobacco Use Status: Never used Tobacco Allergies dulaglutide (From Trulicity) Allergy (Intermediate, Verified 06/11/25 14:30) Abdominal Pain tirzepatide (From Mounjaro) Allergy (Intermediate, Verified 06/11/25 14:30) Abdominal Pain Penicillins Allergy (Mild, Verified 06/11/25 14:30) RASH/DYSPNEA canagliflozin (From Invokana) Adverse Reaction (Severe, Verified 06/11/25 14:30) UTI HPI HPI Comments History of Present Illness Details This is a 59-year-old female with a past medical history of hypertension, diabetes, hyperlipidemia, asthma and gastroesophageal reflux disease presenting for evaluation of a cough that she has had for the past 1 week and ear pain that she has had for the past 2 days. Patient states she has been using her albuterol inhaler every 4 hours for the past 3 days and her nebulizer at night. She denies having any sick contacts, fevers, chills, headache, chest pain or overt shortness of breath. Patient states she is taking prescription pain medication for management of her ear pain as she is taking it following her hernia surgery 2 weeks ago. Patient used her albuterol inhaler prior to coming to the Walk In and she last used her nebulizer last night. [facility] Medical History (Updated 06/11/25 @ 14:56 by Anamaria Del Valle PA-C) Axonal neuropathy Supraumbilical hernia Palpitations Overweight B12 deficiency DM2 (diabetes mellitus, type 2) Moderate recurrent major depression Dyslipidemia Edema Arthritis retirement (current) use of insulin Pernicious anemia Insomnia Depression with anxiety Moderate asthma Essential hypertension Polyarthralgia GERD (gastroesophageal reflux disease) Type 2 diabetes mellitus with other diabetic neurological complication Hearing loss Surgical History (Updated 06/11/25 @ 12:01 by [place] Ruiz PA-C) History of umbilical hernia repair (~05/20/25) History of eyelid surgery Hx of bilateral cataract extraction History of esophagogastroduodenoscopy (EGD) H/O colonoscopy History of cholecystectomy History of umbilical hernia repair History of foot surgery History of carpal tunnel release History of surgery on arm History of endometrial ablation History of tubal ligation Family History Mother Breast cancer Paternal Grandmother Breast cancer Brother Colon cancer Family/Other FH: mental illness Mental health disorder Father CAD (coronary artery disease) Social History Household Members: Children Housing: Apartment Are you a primary pediatric care coordinator to a significant other at home: No Do you presently have visiting nurse or other home services: Yes ([facility]) Alcohol intake: never Patient Tobacco Use Status: Never used Tobacco e-Cigarette/Vaping Use: Never Used Second Hand Smoke Exposure: No service: No Current occupational status: disabled Current occupation: Right hand dominate Cognitive needs: No Hearing needs: No Vision needs: Yes Female Reproductive History Menstrual Age of Menarche: 11 Review of Systems Const All systems reviewed & are unremarkable except as noted in HPI and below Denies body aches, Denies chills, Denies fatigue, Denies fever(s), Denies headache(s) and Denies night sweats Eyes Reports no additional complaints ENT Denies dysphagia, Reports otalgia, Denies headache(s), Denies nasal congestion and Denies sore throat Card Denies chest pain, Denies dyspnea and Denies dyspnea on exertion Resp Reports chest congestion, Reports cough, Denies dyspnea and Denies dyspnea on exertion GI Reports no additional complaints and Denies dysphagia Reports no additional complaints Musc Reports no additional complaints Skin/Breast Reports system reviewed and no additional complaints, except as documented Neuro Reports no additional complaints and Denies headache(s) Psych Reports no additional complaints Endo Reports no additional complaints and Denies fatigue Kranthi/Lymph Reports no additional complaints Physical Exam Vital Signs: Last Vital Signs Temp 98.5 F 06/11/25 14:24 Pulse 83 06/11/25 14:24 BP 124/60 06/11/25 14:24 Pulse Ox 87 L 06/11/25 14:24 BMI result Body Mass Index 30.4 POX is 97% on room air (not 87%) Const General: cooperative, healthy appearing, comfortable, no acute distress, well developed, alert and awake; No ill appearing, lethargic or tired appearing Nutritional Appearance: average body habitus Orientation/consciousness: patient oriented x3 and No lethargic Limitations: no limitations HEENT Head: Yes normal to inspection and Yes normocephalic Ears: hearing grossly normal bilaterally, external ears normal, TM's normal bilaterally and EAC's normal General nose exam: Normal external nose present Face and sinus: Yes normal facial exam and Yes sinuses nontender Mouth: Normal oral and palatal mucosa present, oropharynx normal and moist mucous membranes Throat: Yes posterior oropharynx normal and No postnasal drainage Eyes General: appearance normal, both eyes and all related structures Neck Neck: Yes normal visual inspection and Yes no lymphadenopathy Resp Effort & Inspection: normal respiratory effort, able to speak in complete sentences, no audible wheezes, no cough, respiratory effort not decreased, not tachypneic and no use of accessory muscles Auscultation: wheezes expiratory wheezes and lower bilaterally and lung sounds not diminished Cardio Rate: regular rate Rhythm: regular rhythm Skin General skin exam: no rashes or lesions noted Neuro General: patient oriented x3 Psych Appearance: grossly normal Mental Status: mental status grossly normal Insight: Good insight present (Psych) Judgement: Good judgement present (Psych) Assessment & Plan Assessment & Plan (1) Acute upper respiratory infection: Comment: Patient is afebrile, is not hypoxic or tachypneic and is in no acute distress. Patient's symptoms coupled with her history is consistent with an acute upper respiratory infection. There is no clinical evidence of an otitis media or otitis externa. Patient will be given a burst of prednisone x4 days as this URI has exacerbated her asthma. Code(s): J06.9 - Acute upper respiratory infection, unspecified Plan: Prednisone 40 mg x4 days Coding Level of Care Code Est Pt Level 3 (17106) Diagnoses Acute upper respiratory infection J06.9 Time Spent (min) 20
--- OUTSIDE RECORDS SUMMARY | 2025-06-11 22:31 | XMS_ITS | Clinical Summary ---
[facility] [address] [place] [address] Care Team Providers Care Wet End Tester Name Role Phone Unavailable Primary Care Provider [...] Depression Screening 07/03/2024 COVID-19 Vaccine (1 - 2024-2 6 season) 2025 Influenza Vaccine (#1) 2025 RSV [...]
--- OUTSIDE RECORDS SUMMARY | 2025-06-11 22:31 | XMS_ITS | Data Portability ---
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 Otologic exam demonstrates TMs are intact with well-aerated middle ear spaces. EACs without obstruction. Tympanometry is type A bilaterally. Her hearing aids from [facility] were sent for adjustment. Recommend she trial the adjusted hearing aids. She will return for audiometric testing if abnormal auditory perception persists. Today we spent some time talking about the fact that cerumen is a natural antibiotic, antifungal, computational biologist, and moisturizer of the delicate external auditory [...] Sensorine ural hearing loss of bilateral ears [id number] Active 2018 Sensorine ural hearing loss, bilateral ; Note: Date Diagnosed : 03/28/2019 3:34 PM (H90.3) Not Available [facility] 4 02:33:25 Abrasion of skin of left ear [id number] 179211 Active 2018 Abrasion of left ear, initial encounter ; Note: Date Diagnosed : 03/28/2019 2:58 PM (S00.412A ) Not Available [facility] 4 02:33:25 Foreign body in left ear 06871144662 115150 Active 2018 Foreign body in left ear, initial encounter ; Note: Date Diagnosed : 03/28/2019 2:58 PM (T16.2XXA ) Not Available [facility] 4 02:33:35 Pain of right temporoma ndibular joint 72482231652 461639 Active 2019 Arthralgi a of right temporoma ndibular joint; Note: Date Diagnosed : 0 3:09 PM (M26.621) Not Available [facility] 4 02:33:24 Bilateral temporoma ndibular joint pain 75639199285 677447 Active 2021 Arthralgi a of bilateral temporoma ndibular joint; Note: Date Diagnosed : 08/26/2021 4:41 PM (M26.623) Not Available [facility] 4 02:33:30 Abnormal auditory perceptio n 16120553 Active 2023 Leonie wharton [place] - [facility] 4 10:43:01 Problem Notes None recorded. Procedures Surgical History Date Name Laterality Status Provider Name and Address Organization Details Recorded Time 05/28/20 24 Tympanometry - 64910 completed Leonie Peña [place] - [facility] 05/28/2024 10:42:54 Imaging Results None recorded. Procedure Notes None recorded. Medical Equipment None Reported. Allergies Allergen ID Allergen Name Allergen Category Reaction Reaction Severity Criticality Documentation Date Start Date Code Code System Note Provider Name and Address Organization Details Recorded Time 25124 penicilli n V potassium medicatio n other Not available Not available 11/14/2023 5 RxNorm React ion: unkno wn, unspe cifie d;; Not Available [facility] 01:04[facility] Medications Name Sig Start Date Stop Date Status Note LastModified by Organization Details LastModified Time cyclobenz aprine 10 mg tablet 2018 active Medicati on ID: [id number] D uration Value: 20 Brand Name: tish [...] mg tablet 05/28 completed Medicati on ID: [id number] D uration Value: 30 Brand Name: atorvast [...] mg tablet 05/28 completed Medicati on ID: [id number] B rand Name: ciproflo xacin HCl Send Method: E-Prescr ibed Sub s Allowed: subs OK [facility] : ciproflo xacin HCl Not [...] ear drops 05/28 completed Medicati on ID: [id number] B rand Name: ofloxaci n Send Method: [...] mg tablet 2018 active Medicati on ID: [id number] D uration Value: 30 Brand Name: metoclop ramide HCl Send Method: E-Prescr ibed Sub s Allowed: subs OK Speci al Instruct ion: TOME DIANA TABLETA TODOS LOS D? Med [facility] me: metoclop ramide HCl Not Available [...] injection solution 05/28 completed Medicati on ID: [id number] B rand Name: cyanocob alamin (vitamin B-12) Se nd Method: E-Prescr ibed Sub s Allowed: subs OK Medic ationGen ericName : cyanocob alamin (vitamin B-12) Not Available Not Available Not Available esomepraz ole magnesium 40 mg capsule,d elayed release active Not Available Not Available Not Available omeprazol e 20 mg capsule,d elayed release 2018 active Medicati on ID: [id number] D uration Value: 30 Brand Name: omeprazo [...] Not Available Not Available Not Available [place] Saline 0.65 % nasal spray aerosol 05/28 completed Medicati on ID: [id number] B rand Name: [place] Saline S end Method: E-Prescr ibed Sub s Allowed: subs OK Medic ationGen ericName : [place] Saline Not Available Not Available Not Available [...] pen injector 2018 active Medicati on ID: [id number] D uration Value: 28 Brand Name: Skyler [...] ICD10 Code Diagnosis IMO Codes Diagnosis Note [id number] GERARDO METZ PA-C [facility] [address] [address] 05/28/2024 10:13:26 05/28/2024 11:00:06 Abnormal auditory perception [id number] H93.299 Tympanomet ry: Right Ear:Type A Left Ear:Type A Bilateral temporomandibular joint pain [id number] 1259273 M26.623 Sensorineu ral hearing loss of bilateral ears 333555172 H90.3 Health Concerns Section Related Observation LastModified by Organization Detai ls LastModified Time None Recorded Concern Status LastModified by Organization Details LastModified Time None Recorded Advance Directives Directive None Recorded Payers Insurance Date Sequence Insurance Name Policy Number Policy Gamino Covered Member ID Gamino Member ID Guarantor Name 05/28/2024 1 [facility] - HEALTH NET PLAN (MEDICAID HMO) JAIDEN Durham [id number] Mellisa Durham Notes Date Note Type Note [...] ear infections. She has hearing aids from [facility] that she recently sent for adjustments. She has not worn them in 2 years. Occasional buzzing sounds bilaterally. MERRILL IRIZARRY MD [address] [place] [address], [place], [address], [facility] - [facility] 05/28/2024 17:20:37 OBGyn Episode No OBEpisode recorded.
== END 2025-06-11 14:50 | disposition home or self-care (01) ==
PROVIDERS: PCP Internal Medicine; Visit Provider Physician Assistant
DX: J06.9 Acute upper respiratory infection, unspecified (principal)

== ENCOUNTER 2025-06-17 13:03 | Outpatient (REF) | payer OTHER, SELFPAY ==
--- NOTE | ~2025-06-17 | US_ITS ---
EXAMINATION: US KIDNEY BILATERAL HISTORY: N20.0 - Calculus of kidney TECHNIQUE: Real-time grayscale ultrasound imaging of the kidneys was performed and images were reviewed. COMPARISON: Correlation is made with a CT of the abdomen with contrast dated 03/28/2025. FINDINGS: Right kidney: The right kidney measures 11.0 x 4.2 x 5.2 cm. Renal parenchymal echotexture and thickness are normal. There are no masses. There is no hydronephrosis or renal calculi. Left Kidney: The left kidney measures 10.9 x 5.6 x 4.7 cm. Renal parenchymal echotexture and thickness are normal. There are no masses. There is no hydronephrosis or renal calculi. US/US renal BI IMPRESSION: Unremarkable renal ultrasound. Electronically signed by: Hernandez Carlson MD 06/17/2025 02:05 PM NAOMI
--- OUTSIDE RECORDS SUMMARY | 2025-06-17 16:59 | XMS_ITS | Data Portability ---
Author Organization [place] - [facility], Allergy Address [address] [facility] [address] [place] [address] Care Team Providers Care Package Handler Name Role Phone LUIS M GILLIAM Primary Care Provider [phone] Assessment Encounter Date Assessment Date Assessment LastModified by Organization Details LastModified Time 05/28/2024 05/28/2024 58 year old female with SNHL and TMJ presents for evaluation of ear blockage bilaterally. Otologic exam demonstrates TMs are intact with well-aerated middle ear spaces. EACs without obstruction. Tympanometry is type A bilaterally. Her hearing aids from [facility] were sent for adjustment. Recommend she trial the adjusted hearing aids. She will return for audiometric testing if abnormal auditory perception persists. Today we spent some time talking about the fact that cerumen is a natural antibiotic, antifungal, supervisor felting, and moisturizer of the delicate external auditory [...] Sensorine ural hearing loss of bilateral ears 207422464 Active 2018 Sensorine ural hearing loss, bilateral ; Note: Date Diagnosed : 03/28/2019 3:34 PM (H90.3) Not Available [facility] 4 02:33:25 Abrasion of skin of left ear 40107413933 114524 Active 2018 Abrasion of left ear, initial encounter ; Note: Date Diagnosed : 03/28/2019 2:58 PM (S00.412A ) Not Available [facility] 4 02:33:25 Foreign body in left ear 56298586549 600584 Active 2018 Foreign body in left ear, initial encounter ; Note: Date Diagnosed : 03/28/2019 2:58 PM (T16.2XXA ) Not Available [facility] 4 02:33:35 Pain of right temporoma ndibular joint 80485955803 372998 Active 2019 Arthralgi a of right temporoma ndibular joint; Note: Date Diagnosed : 0 3:09 PM (M26.621) Not Available [facility] 4 02:33:24 Bilateral temporoma ndibular joint pain 60158068620 085671 Active 2021 Arthralgi a of bilateral temporoma ndibular joint; Note: Date Diagnosed : 08/26/2021 4:41 PM (M26.623) Not Available [facility] 4 02:33:30 Abnormal auditory perceptio n 43556688 Active 2023 Leonie wharton [place] - [facility] 4 10:43:01 Problem Notes None recorded. Procedures Surgical History Date Name Laterality Status Provider Name and Address Organization Details Recorded Time 05/28/20 24 Tympanometry - 65201 completed Leonie Peña MA - [facility] 05/28/2024 10:42:54 Imaging Results None recorded. Procedure Notes None recorded. Medical Equipment None Reported. Allergies Allergen ID Allergen Name Allergen Category Reaction Reaction Severity Criticality Documentation Date Start Date Code Code System Note Provider Name and Address Organization Details Recorded Time 46927 penicilli n V potassium medicatio n other Not available Not available 11/14/2023 5 RxNorm React ion: unkno wn, unspe cifie d;; Not Available [facility] 01:04[facility] Medications Name Sig Start Date Stop Date Status Note LastModified by Organization Details LastModified Time cyclobenz aprine 10 mg tablet 2018 active Medicati on ID: [id number] D uration Value: 20 Brand Name: tish [...] mg tablet 05/28 completed Medicati on ID: [id number] D uration Value: 30 Brand Name: atorvast [...] mg tablet 05/28 completed Medicati on ID: [id number] B rand Name: ciproflo xacin HCl Send Method: E-Prescr ibed Sub s Allowed: subs OK [facility] ciproflo xacin HCl Not [...] ear drops 05/28 completed Medicati on ID: [id number] B rand Name: ofloxaci n Send Method: [...] mg tablet 2018 active Medicati on ID: [id number] D uration Value: 30 Brand Name: metoclop [...] injection solution 05/28 completed Medicati on ID: [id number] B rand Name: cyanocob alamin (vitamin B-12) Se nd Method: E-Prescr ibed Sub s Allowed: subs OK Medic ationGen ericName : cyanocob alamin (vitamin B-12) Not Available Not Available Not Available esomepraz ole magnesium 40 mg capsule,d elayed release active Not Available Not Available Not Available omeprazol e 20 mg capsule,d elayed release 2018 active Medicati on ID: [id number] D uration Value: 30 Brand Name: omeprazo [...] completed Not Available Not Available Not Available [place] Saline 0.65 % nasal spray aerosol 05/28 completed Medicati on ID: [id number] B rand Name: [place] Saline S end Method: E-Prescr ibed Sub s Allowed: subs OK Medic ationGen ericName : [place] Saline Not Available Not Available Not Available [...] pen injector 2018 active Medicati on ID: [id number] D uration Value: 28 Brand Name: Skyler [...] ICD10 Code Diagnosis IMO Codes Diagnosis Note [id number] GERARDO METZ PA-C [facility] [address] [address] 05/28/2024 10:13:26 05/28/2024 11:00:06 Abnormal auditory perception [id number] H93.299 Tympanomet ry: Right Ear:Type A Left Ear:Type A Bilateral temporomandibular joint pain [id number] 5611883 M26.623 Sensorineu ral hearing loss of bilateral ears 186063488 H90.3 Health Concerns Section Related Observation LastModified by Organization Detai ls LastModified Time None Recorded Concern Status LastModified by Organization Details LastModified Time None Recorded Advance Directives Directive None Recorded Payers Insurance Date Sequence Insurance Name Policy Number Policy Gamino Covered Member ID Gamino Member ID Guarantor Name 05/28/2024 1 [facility] - HEALTH NET PLAN (MEDICAID HMO) JAIDEN Durahm [id number] Mellisa Durham Notes Date Note Type Note [...] ear infections. She has hearing aids from [facility] that she recently sent for adjustments. She has not worn them in 2 years. Occasional buzzing sounds bilaterally. MERRILL IRIZARRY MD [address] [place] [address], [place], [address], [facility] - [facility] 05/28/2024 17:20:37 OBGyn Episode No OBEpisode recorded.
--- OUTSIDE RECORDS SUMMARY | 2025-06-17 16:59 | XMS_ITS | Clinical Summary ---
[facility] Address [address] [place] [address] Care Team Providers Care Oriental Rug Stretcher Name Role Phone Unavailable Primary Care Provider [...]
== END 2025-06-17 13:04 | disposition home or self-care (01) ==
LOC: HO.US 13:03
PROVIDERS: Visit Provider Nurse Practitioner Family
DX: N20.0 Calculus of kidney (principal)
CPT/HCPCS: 76775

== ENCOUNTER → 2025-06-17 13:07 | Outpatient (BNV) | payer OTHER, SELFPAY | PROVIDERS: Visit Provider Radiology Diagnostic Radiology | DX: N20.0 Calculus of kidney (principal) | CPT/HCPCS: 76775 ==